=== PATIENT | male | born 1950 | race Caucasian/White ===

== ENCOUNTER → 2016-05-18 | Outpatient (CLI) | payer OTHER ==
[~2016-05-18] MED LIST: AMB10 PO; AMOX500C3 PO; ATOR-22 PO; BMX1 PO; BUME1TAB PO; CITA20TA9 PO; CMD5 PO; DRN400 PO; HYDR-5688 PO; ISOS120T5 PO; LISI2.5T5 PO; LORA-741 PO; METO1TAB69 PO; NRN/600 PO; NTRGSL/4 UT; POTA1CAP2 PO; PRD20 PO; WARF2TAB8 PO; WARF3TAB PO; ZOLP10TA6 PO
[2016-05-18 15:04] LABS: BLOOD UREA NITROGEN 27 mg/dl (7-18); BUN/CREATININE RATIO 17.1 (10-20); CALCIUM 8.8 mg/dl (8.5-10.1); CARBON DIOXIDE 25 mmol/L (21-32); CHLORIDE 105 mmol/L (98-107); GLUCOSE 97 mg/dl (70-99); POTASSIUM 4.7 mmol/L (3.5-5.1); SODIUM 140 mmol/L (136-145)
== END | disposition home or self-care (01) ==
LOC: C.LAB1850 13:25
PROVIDERS: ATTEND Internal Medicine Cardiovascular Disease
DX: I50.22 Chronic systolic (congestive) heart failure (principal); I48.0 Paroxysmal atrial fibrillation; Z79.01 Long term (current) use of anticoagulants

== ENCOUNTER → 2016-06-15 | Outpatient (CLI) | payer OTHER ==
[2016-06-15 15:28] LABS: INR 2.5 (0.9-1.1); PROTHROMBIN TIME (PATIENT) 28.1 SECONDS (9.0-12.0)
== END | disposition home or self-care (01) ==
LOC: C.LABSPEC 14:51
PROVIDERS: ATTEND Internal Medicine
DX: I48.0 Paroxysmal atrial fibrillation (principal); Z79.01 Long term (current) use of anticoagulants

== ENCOUNTER → 2016-07-15 | Outpatient (CLI) | payer OTHER ==
[2016-07-15 15:32] LABS: PROTHROMBIN TIME (PATIENT) 33.5 SECONDS (9.0-12.0)
== END | disposition home or self-care (01) ==
LOC: C.LABSPEC 14:50
PROVIDERS: ATTEND Internal Medicine
DX: I48.0 Paroxysmal atrial fibrillation (principal); Z79.01 Long term (current) use of anticoagulants

== ENCOUNTER → 2016-08-11 | Outpatient (CLI) | payer OTHER ==
[~2016-08-11] MED LIST changes: +METO100T44 PO; -METO1TAB69 PO
[2016-08-11 16:41] LABS: INR 2.3 (0.9-1.1); PROTHROMBIN TIME (PATIENT) 25.9 SECONDS (9.0-12.0)
== END | disposition home or self-care (01) ==
LOC: C.LABSPEC 17:48
PROVIDERS: ATTEND Internal Medicine
DX: Z51.81 Encounter for therapeutic drug level monitoring (principal); Z79.01 Long term (current) use of anticoagulants; I48.0 Paroxysmal atrial fibrillation

== ENCOUNTER → 2016-08-15 | Outpatient (CLI) | payer OTHER ==
--- NOTE | 2016-08-15 16:22 | DIAGNOSTIC IMAGING REPORT ---
CHEST 2 VIEWS ROUTINE CLINICAL HISTORY: DYSPNEA pain COMPARISON STUDY: 03/08/2016 FINDINGS: Permanent bipolar cardiac pacemaker/fibrillator in good position. Mild stable cardiomegaly. Mild stable chronic interstitial change. No focal infiltrates. IMPRESSION: Chronic and postoperative change. No acute process. Electronically signed by: Amilcar Tobar M.D. 08/15/2016 4:19 PM Dictated Date/Time: 08/15/2016 4:18 PM
== END | disposition home or self-care (01) ==
LOC: C.RAD 15:57
PROVIDERS: ATTEND Internal Medicine
DX: R06.00 Dyspnea, unspecified (principal); I42.9 Cardiomyopathy, unspecified

== ENCOUNTER → 2016-08-15 | Outpatient (CLI) | payer OTHER ==
[2016-08-15 17:37] LABS: BASO % 0.3 %; BASO ABS # 0.03 K/uL (0-0.2); COMPLETE YES; EOS % 0.8 %; HEMATOCRIT 38.2 % (42-52); IG% 0.1 %; LYMPH % 8.6 %; MEAN CELL VOLUME 86.8 fL (80-100); MEAN CORPUSCULAR HGB CONC 32.2 g/dl (32-36); MEAN PLATELET VOLUME 11.9 fL (7.4-10.4); MONO % 8.8 %; NEUT % 81.4 %; PLATELET COUNT 178 K/uL (130-400); WHITE BLOOD COUNT 9.32 K/uL (4.8-10.8)
[2016-08-15 17:51] LABS: BLOOD UREA NITROGEN 29 mg/dl (7-18); BUN/CREATININE RATIO 18.2 (10-20); CALCIUM 8.6 mg/dl (8.5-10.1); CARBON DIOXIDE 22 mmol/L (21-32); CHLORIDE 106 mmol/L (98-107); GLUCOSE 88 mg/dl (70-99); MAGNESIUM 2.3 mg/dl (1.8-2.4); SODIUM 137 mmol/L (136-145)
== END | disposition home or self-care (01) ==
LOC: C.LABSPEC 11:29
PROVIDERS: ATTEND Internal Medicine
DX: R06.00 Dyspnea, unspecified (principal); I25.10 Atherosclerotic heart disease of native coronary artery without angina pectoris; J06.9 Acute upper respiratory infection, unspecified; I42.9 Cardiomyopathy, unspecified

== ENCOUNTER → 2016-09-13 | Outpatient (CLI) | payer OTHER ==
[2016-09-13 12:54] LABS: INR 2.6 (0.9-1.1); PROTHROMBIN TIME (PATIENT) 28.5 SECONDS (9.0-12.0)
== END | disposition home or self-care (01) ==
LOC: C.LABSPEC 12:17
PROVIDERS: ATTEND Internal Medicine
DX: I48.0 Paroxysmal atrial fibrillation (principal); Z79.01 Long term (current) use of anticoagulants

== ENCOUNTER → 2016-10-27 | Outpatient (CLI) | payer OTHER ==
[2016-10-27 18:19] LABS: PROTHROMBIN TIME (PATIENT) 52.2 SECONDS (9.0-12.0)
[2016-10-27 18:30] LABS: INR 4.6 (0.9-1.1)
== END | disposition home or self-care (01) ==
LOC: C.LABSPEC 17:26
PROVIDERS: ATTEND Internal Medicine
DX: I48.0 Paroxysmal atrial fibrillation (principal); Z79.01 Long term (current) use of anticoagulants

== ENCOUNTER → 2016-11-04 | Outpatient (CLI) | payer OTHER ==
[~2016-11-04] MED LIST changes: -METO100T44 PO; +METO1TAB69 PO
[2016-11-04 18:25] LABS: INR 4.3 (0.9-1.1)
== END | disposition home or self-care (01) ==
LOC: C.LABSPEC 16:52
PROVIDERS: ATTEND Internal Medicine
DX: Z51.81 Encounter for therapeutic drug level monitoring (principal); Z79.01 Long term (current) use of anticoagulants; I48.0 Paroxysmal atrial fibrillation

== ENCOUNTER → 2016-11-14 | Outpatient (CLI) | payer OTHER ==
--- NOTE | 2016-11-14 14:55 | DIAGNOSTIC IMAGING REPORT ---
CHEST 2 VIEWS ROUTINE HISTORY:65 yearsMaleDYSPNEA COMPARISON: 08/15/2016. TECHNIQUE: Frontal and lateral views of the chest. FINDINGS: Left pectoral pacer/defibrillator is noted with leads appearing to be intact. Prior median sternotomy. Multichamber enlargement of the cardiac silhouette is redemonstrated. No pneumothorax, pleural effusion, focal airspace consolidation or overt pulmonary edema. Lungs are mildly hyperinflated. The bones are grossly intact. IMPRESSION: No acute cardiopulmonary process. The above report was generated using voice recognition software. It may contain grammatical, syntax or spelling errors. Electronically signed by: Ronnie Lee 11/14/2016 2:54 PM Dictated Date/Time: 11/14/2016 2:52 PM
== END | disposition home or self-care (01) ==
LOC: C.RAD1850 14:24
PROVIDERS: ATTEND Internal Medicine Cardiovascular Disease
DX: R06.00 Dyspnea, unspecified (principal)

== ENCOUNTER → 2016-11-18 | Day surgery (SDC) | payer OTHER ==
[~2016-11-18] VITALS: Ht 175.3 cm; Wt 91.0 kg
[~2016-11-18] MED LIST changes: -DRN400 PO; -WARF2TAB8 PO; -ZOLP10TA6 PO
[2016-11-18 07:16] VITALS: BP 114/73; PULSE 66; TEMP 36.9; O2SAT 96; Ht 175.3 cm; Wt 91.0 kg
--- NOTE | 2016-11-18 07:44 | History & Physical Bridge Note ---
H&P Re-Evaluation Bridge Note: I have examined the patient, reviewed the History & Physical and in the interval since the performance of the History & Physical I have noted the following changes of clinical significance: No changes noted. Reviewed indications, procedure, risks and alternatives and he understands and agrees to proceed. Consent obtained.
[2016-11-18 07:46] VITALS: BP 112/66; PULSE 68; O2SAT 96
[2016-11-18 07:48] VITALS: BP 100/59; PULSE 80; O2SAT 96
[2016-11-18 07:50] VITALS: BP 100/59; PULSE 80; O2SAT 96
--- NOTE | 2016-11-18 07:55 | Cardiology Procedure Brief Nt ---
Preliminary Cardiology Note Procedure Date Nov 18, 2016. 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
--- NOTE | 2016-11-18 07:58 | Anesthesiology Progress Note ---
Anesthesia Post Op Note Date & Time Nov 18, 2016 at 07:57 Vital Signs Pain Intensity: 0 Vital Signs Past 12 Hours Date Time Temp Pulse Resp B/P (MAP) Pulse Ox O2 Delivery O2 Flow Rate FiO2 11/18/16 07:50 80 16 100/59 96 Nasal Cannula 6 11/18/16 07:50 65 16 100/59 (73) 96 Room Air 11/18/16 07:48 80 16 100/59 96 Nasal Cannula 6 11/18/16 07:46 68 16 112/66 96 Nasal Cannula 6 11/18/16 07:16 36.9 66 16 114/73 96 Room Air Notes Mental Status: alert / awake / arousable, participated in evaluation Pt Amnestic to Procedure: Yes Nausea / Vomiting: adequately controlled Pain: adequately controlled Airway Patency, RR, SpO2: stable & adequate BP & HR: stable & adequate Hydration State: stable & adequate Anesthetic Complications: no major complications apparent
--- NOTE | 2016-11-18 09:21 | Discharge Instructions ---
Discharge Instructions Date of Service Nov 18, 2016. Admission Reason for Admission: A Fib Discharge Discharge Diagnosis / Problem: atrial fibrillation/flutter Discharge Goals Goal(s): Improve disease control Activity Recommendations Activity Limitations: resume your previous activity . Instructions / Follow-Up Instructions / Follow-Up ACTIVITY RECOMMENDATIONS: * May resume driving tomorrow. SPECIAL CARE: * Please contact physician for any lightheadedness, dizziness or palpitations. Current Hospital Diet Patient's current hospital diet: AHA Diet (Heart Healthy) Discharge Diet Recommended Diet: AHA Diet (Heart Healthy) Pending Studies Studies pending at discharge: no Medical Emergencies . Who to Call and When: Medical Emergencies: If at any time you feel your situation is an emergency, please call 911 immediately. . Non-Emergent Contact Non-Emergency issues call your: Primary Care Provider . . "Provider Documentation" section prepared by Bandar Sanders. . VTE Core Measure Inpt VTE Proph given/why not?: Warfarin (Coumadin)
[2016-11-18 09:30] VITALS: BP 104/60; PULSE 70; O2SAT 97
--- NOTE | 2016-11-18 10:26 | Cardioversion ---
Electricial Cardioversion Rpt Electrical Cardioversion Rprt Procedure Date Nov 18, 2016. Pre-Procedure Diagnosis Atrial flutter Post-Procedure Diagnosis Same Procedure(s) Performed Electrical cardioversion ICD reprogramming Energy Efficiency Finance Manager Tommy Tactical/Mobile Watch Officer(s) None Estimated Blood Loss None Procedure After obtaining informed consent for the procedure, he was connected to the recording apparatus as well as an external defibrillator system. He was anesthetized using propofol delivered by the anesthesia department. Once adequate anesthesia was obtained a synchronized internal biphasic shock of 35 J was delivered using the implanted ICD. His rhythm was converted from atrial fibrillation. External cardioversion was not necessary. He tolerated the procedure well and he awoke without sequela from the anesthesia , his ICD was evaluated post cardioversion. He will be observed briefly and discharged. Recommendations Monitor and discharge Specimens None Anesthesia Propofol via anesthesia Complication(s) None Disposition label maker recovery
== END | disposition home or self-care (01) ==
LOC: C.CATH 06:28
PROVIDERS: ATTEND Internal Medicine Cardiovascular Disease
DX: I48.91 Unspecified atrial fibrillation (principal); I48.92 Unspecified atrial flutter; I50.22 Chronic systolic (congestive) heart failure; I25.10 Atherosclerotic heart disease of native coronary artery without angina pectoris; K21.0 Gastro-esophageal reflux disease with esophagitis; I42.9 Cardiomyopathy, unspecified; E78.5 Hyperlipidemia, unspecified; G47.33 Obstructive sleep apnea (adult) (pediatric); I25.2 Old myocardial infarction

== ENCOUNTER → 2016-11-25 | Outpatient (CLI) | payer OTHER ==
[~2016-11-25] MED LIST changes: -BMX1 PO; -CMD5 PO; +DRN400 PO; -HYDR-5688 PO; -PRD20 PO; +WARF2TAB8 PO; +ZOLP10TA6 PO
[2016-11-25 13:34] LABS: INR 1.4 (0.9-1.1); PROTHROMBIN TIME (PATIENT) 15.2 SECONDS (9.0-12.0)
== END | disposition home or self-care (01) ==
LOC: C.LABSPEC 12:13
PROVIDERS: ATTEND Internal Medicine
DX: I48.0 Paroxysmal atrial fibrillation (principal); Z79.01 Long term (current) use of anticoagulants

== ENCOUNTER → 2016-12-13 | Outpatient (CLI) | payer OTHER ==
[2016-12-13 15:31] LABS: INR 2.7 (0.9-1.1); PROTHROMBIN TIME (PATIENT) 30.2 SECONDS (9.0-12.0)
== END | disposition home or self-care (01) ==
LOC: C.LABSPEC 14:59
PROVIDERS: ATTEND Internal Medicine
DX: I48.0 Paroxysmal atrial fibrillation (principal); Z79.01 Long term (current) use of anticoagulants

== ENCOUNTER → 2017-01-18 | Outpatient (CLI) | payer OTHER ==
[2017-01-18 12:45] LABS: INR 2.7 (0.9-1.1); PROTHROMBIN TIME (PATIENT) 30.4 SECONDS (9.0-12.0)
== END | disposition home or self-care (01) ==
LOC: C.LABSPEC 12:05
PROVIDERS: ATTEND Internal Medicine
DX: I48.0 Paroxysmal atrial fibrillation (principal); Z79.01 Long term (current) use of anticoagulants

== ENCOUNTER 2017-01-25 14:21 | Inpatient (IN) | payer OTHER ==
[~2017-01-25] VITALS: Ht 175.3 cm; Wt 86.3 kg
[~2017-01-25 14:21] MED LIST changes: -DRN400 PO; -WARF2TAB8 PO; -ZOLP10TA6 PO
[2017-01-25] MEDS ORDERED: SODIUM CHLORIDE 0.9% 250ML 250 ML IV STA (14:46)
[2017-01-25 14:57] LABS: BASO % 0.4 %; BASO ABS # 0.02 K/uL (0-0.2); COMPLETE YES; EOS % 3.2 %; HEMATOCRIT 42.4 % (42-52); IG% 0.2 %; LYMPH % 19.4 %; LYMPH ABS # 0.96 K/uL (1.2-3.4); MEAN CELL VOLUME 88.1 fL (80-100); MEAN CORPUSCULAR HEMOGLOBIN 28.3 pg (25-34); MEAN CORPUSCULAR HGB CONC 32.1 g/dl (32-36); MEAN PLATELET VOLUME 11.4 fL (7.4-10.4); MONO % 9.9 %; NEUT % 66.9 %; PLATELET COUNT 142 K/uL (130-400); RED BLOOD COUNT 4.81 M/uL (4.7-6.1); WHITE BLOOD COUNT 4.95 K/uL (4.8-10.8)
[2017-01-25 15:04] LABS: ISTAT HEMOGLOBIN 13.9 g/dl (14.0-18.0); ISTAT IONIZED CALCIUM 1.13 mmol/l (1.12-1.32)
--- NOTE | 2017-01-25 15:11 | DIAGNOSTIC IMAGING REPORT ---
CHEST ONE VIEW PORTABLE CLINICAL HISTORY: syncope eval pacemaker leads syncope COMPARISON STUDY: 11/14/2016 FINDINGS: Cardiac pacemaker/defibrillator with leads unchanged in position. No evidence pneumothorax. Moderate stable cardiomegaly. Lungs are clear. IMPRESSION: Stable bipolar cardiac pacemaker/defibrillator leads. Moderate stable cardia megaly. No acute process. The above report was generated using voice recognition software. It may contain grammatical, syntax or spelling errors. Electronically signed by: Amilcar Tobar M.D. 01/25/2017 3:09 PM Dictated Date/Time: 01/25/2017 3:09 PM
[2017-01-25 15:15] LABS: BUN/CREATININE RATIO 21.5 (10-20); CALCIUM 9.4 mg/dl (8.5-10.1); CREATININE 1.9 mg/dl (0.60-1.40); MAGNESIUM 2.3 mg/dl (1.8-2.4); POTASSIUM 4.2 mmol/L (3.5-5.1)
[2017-01-25 15:21] LABS: INR 3.3 (0.9-1.1); PARTIAL THROMBOPLASTIN RATIO 1.7; PROTHROMBIN TIME (PATIENT) 37.6 SECONDS (9.0-12.0)
[2017-01-25] MEDS ORDERED: WARF2TAB8 PO (15:22)
[2017-01-25] MEDS ORDERED: ZOLP10TA6 PO (15:23)
[2017-01-25] MEDS ORDERED: DRN400 PO (15:26)
--- NOTE | 2017-01-25 15:47 | DIAGNOSTIC IMAGING REPORT ---
HEAD WITHOUT CONTRAST (CT) CT DOSE: 1043.97 mGy.cm HISTORY: Mental status change eval for bleed TECHNIQUE: Multiaxial CT images of the head were performed without the use of intravenous contrast. A dose lowering technique was utilized adhering to the principles of ALARA. Comparison: 11/01/2013 Findings: The paranasal sinuses and mastoid air cells are clear. The calvarium and skull base are intact. The ventricles and sulci are within normal limits. There is no mass, hematoma, midline shift, or acute infarct. Impression: No acute intracranial abnormality. The above report was generated using voice recognition software. It may contain grammatical, syntax or spelling errors. Electronically signed by: Amilcar Tobar M.D. 01/25/2017 3:46 PM Dictated Date/Time: 01/25/2017 3:45 PM
--- NOTE | 2017-01-25 15:54 | DIAGNOSTIC IMAGING REPORT ---
CT OF THE CERVICAL SPINE WITHOUT CONTRAST CLINICAL HISTORY: Syncope with fall. COMPARISON STUDY: CTA of the neck November 01, 2013. TECHNIQUE: Helical axial images of the cervical spine were obtained without IV contrast. Sagittal and coronal reconstructions were viewed. A dose lowering technique was utilized adhering to the principles of ALARA. FINDINGS: Alignment of the cervical spine is anatomic. The craniocervical junction is intact. There is no acute cervical spine fracture. Moderate multilevel degenerative disc disease and facet arthrosis is present. Mild interlobular septal thickening is noted within visual portions of the lungs. IMPRESSION: No acute cervical spine fracture or subluxation. Electronically signed by: Guillermo Braden M.D. 01/25/2017 3:52 PM Dictated Date/Time: 01/25/2017 3:48 PM
[2017-01-25] MEDS ORDERED: FENTANYL CITRATE INJ 50 MCG/1 ML 2 ML VIAL IV STA (17:00)
[2017-01-25] MEDS ORDERED: NITROGLYCERIN 0.4 MG SL PER TAB CHARGE SL PRN (17:30)
[2017-01-25 17:50] VITALS: O2SAT 93; Ht 175.3 cm; Wt 86.3 kg
--- NOTE | 2017-01-25 18:01 | EMERGENCY ROOM VISIT NOTE ---
History Report prepared by Abdullahi: Najma West Under the Supervision of: Dr. Jonel Malone M.D. 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 Pt states he hit his head, right elbow, right knee. Pt states he has a defib and "he thinks it went off." Reports epigastric pain. History of Present Illness The patient is a 66 year old male who presents to the Emergency Room with complaints of a syncopal episode occurring an hour ago. The patient was sitting in his chair when he got up and felt lightheaded. He notes that he passed out and woke up about five minutes after the episode. When getting up after the episode, the patient notes he felt weak all over. He states he still feels weak from the episode. The patient has epigastric pain which he has never had before. He states he hit his head on the refrigerator and has neck pain. He notes hitting his right knee and elbow from the fall but denies having any significant pain in those areas. He denies having any heart racing or chest pain during the episode. The patient is unsure if his defibrillator went off during the episode. He denies feeling it go off. The only symptoms he had prior to passing out was lightheadedness. The patient is on Coumadin and had a cardioversion and reprogramming of ICD on December 19 for atrial flutter. Source of History: patient Onset: an hour ago Position: other (generalized) Quality: other (syncope) Timing: other (episode) Associated Symptoms: + LOC, + abdominal pain (epigastric), + weakness ( generalized), No fevers, No chest pain, No SOB Review of Systems See HPI for pertinent positives & negatives. A total of 10 systems reviewed and were otherwise negative. Past Medical & Surgical Medical Problems: (1) AC MYOCARD INFARCT INFRPSTERIOR WALL,INIT EPIS CAR (2) ANTICOAGULANTS,LT,CURRENT USE (3) ANXIETY STATE NOS (4) AORTOCORONARY BYPASS (5) ARTERIAL EMBOLISM NOS (6) Atherosclerotic heart disease (7) ATRIAL FIBRILLATION (8) BELOW KNEE AMPUTATION STATUS (9) CARDIAC PACEMAKER IN SITU (10) CHF,CARDIOMYOPATHY EF 12-20% (11) CORONARY ATHEROSCLEROSIS OF [place] CORONARY VESSEL (12) Parox Ventric Tachycard (13) Recurrent ventricular tachycardia (14) SYNCOPE, V.TACH.,V FIB.,CAD (15) SYNCOPE,CAD,?CHOLECYSTITIS, Family History Heart disease Social History Smoking Status: Never Smoker Alcohol Use: none Marital Status: Housing Status: lives with family Occupation Status: employed Current/Historical Medications Scheduled Amoxicillin (Amoxil), 2,000 MG PO PRN/UD Atorvastatin (Lipitor), 20 MG PO DAILY Citalopram Hydrobromide (Celexa), 20 MG PO DAILY Dronedarone (Multaq), 400 MG PO BID Gabapentin (Neurontin), 600 MG PO BIDM Isosorbide Mononitrate (Imdur Ext Rel), 120 MG PO QAM Lisinopril (Lisinopril), 2.5 MG PO DAILY Metoprolol Succ (Toprol Xl) (Toprol-Xl ), 150 MG PO DAILY Nitroglycerin (Nitrostat), 0.4 MG UT PRN Potassium Chloride (Potassium Chloride Er), 20 MEQ PO DAILY Warfarin Sod (Jantoven), 2 MG PO DAILY Scheduled PRN Bumetanide (Bumex), 1 TAB PO DAILY PRN for PRN Lorazepam (Ativan), 1-2 TABS PO Q6H PRN for Anxiety Zolpidem Tartrate (Zolpidem Tartrate), 1 TAB PO HS PRN for Sleep Allergies Coded Allergies: Heparin (Verified Allergy, Severe, CAUSES HIT, 01/25/17) Silver (Verified Adverse Reaction, Unknown, TOPICAL - BURNING, PAIN, ) TOPICAL USE Physical Exam Vital Signs Date Time Temp Pulse Resp B/P (MAP) Pulse Ox O2 Delivery O2 Flow Rate FiO2 01/25/17 16:59 74 16 114/80 93 Room Air 01/25/17 16:39 61 15 96/60 93 Room Air 01/25/17 14:43 74 01/25/17 14:29 37.7 64 20 107/63 94 Room Air Physical Exam Constitutional: Vital signs reviewed. Eyes: Pupils are equal round reactive to light. Conjunctiva are noninjected. ENT: Pharynx is clear without erythema or exudate. Mucous membranes are moist. Neck supple without meningeal signs. No midline tenderness to cervical spine. Respiratory: Clear to auscultation bilaterally. Breath sounds are equal bilaterally. Cardiovascular: Regular rate and rhythm. No rubs or gallops. GI: Soft, nondistended and nontender. Bowel sounds are present. Musculoskeletal: Erythema to right anterior knee without tenderness. Full ROM intact. No tenderness to hips or right elbow. Left BKA. Integumentary: No cyanosis. Neurological: The patient is awake and alert. Cranial nerves II-XII are intact. Motor is 5 out of 5 all extremities. Sensation is intact to light touch all extremities. Normal speech. No pronator drift. Psychiatric: Normal affect. Medical Decision & Procedures ER Provider Diagnostic Interpretation: Radiology results as stated below per my review and the radiologist's interpretation: CHEST ONE VIEW PORTABLE FINDINGS: Cardiac pacemaker/defibrillator with leads unchanged in position. No evidence pneumothorax. Moderate stable cardiomegaly. Lungs are clear. IMPRESSION: Stable bipolar cardiac pacemaker/defibrillator leads. Moderate stable cardia megaly. No acute process. The above report was generated using voice recognition software. It may contain grammatical, syntax or spelling errors. Electronically signed by: Amilcar Tobar M.D HEAD WITHOUT CONTRAST (CT) Findings: The paranasal sinuses and mastoid air cells are clear. The calvarium and skull base are intact. The ventricles and sulci are within normal limits. There is no mass, hematoma, midline shift, or acute infarct. Impression: No acute intracranial abnormality. The above report was generated using voice recognition software. It may contain grammatical, syntax or spelling errors. Electronically signed by: Amilcar Tobar M.D. CT OF THE CERVICAL SPINE WITHOUT CONTRAST TECHNIQUE: Helical axial images of the cervical spine were obtained without IV contrast. Sagittal and coronal reconstructions were viewed. A dose lowering technique was utilized adhering to the principles of ALARA. FINDINGS: Alignment of the cervical spine is anatomic. The craniocervical junction is intact. There is no acute cervical spine fracture. Moderate multilevel degenerative disc disease and facet arthrosis is present. Mild interlobular septal thickening is noted within visual portions of the lungs. IMPRESSION: No acute cervical spine fracture or subluxation. Electronically signed by: Guillermo Braden M.D. Laboratory Results 01/25/17 14:40 Red Blood Count 4.81, Mean Corpuscular Volume 88.1, Mean Corpuscular Hemoglobin 28.3, Mean Corpuscular Hemoglobin Concent 32.1, Mean Platelet Volume 11.4, Neutrophils (%) (Auto) 66.9, Lymphocytes (%) (Auto) 19.4, Monocytes (%) (Auto) 9.9, Eosinophils (%) (Auto) 3.2, Basophils (%) (Auto) 0.4, Neutrophils # (Auto) 3.31, Lymphocytes # (Auto) 0.96, Monocytes # (Auto) 0.49, Eosinophils # (Auto) 0.16, Basophils # (Auto) 0.02 01/25/17 14:40 Test 01/25/17 14:40 01/25/17 14:55 01/25/17 14:56 01/25/17 17:16 White Blood Count 4.95 K/uL (4.8-10.8) Red Blood Count 4.81 M/uL (4.7-6.1) Hemoglobin 13.6 g/dL (14.0-18.0) Hematocrit 42.4 % (42-52) Mean Corpuscular Volume 88.1 fL (80-100) Mean Corpuscular Hemoglobin 28.3 pg (25-34) Mean Corpuscular Hemoglobin Concent 32.1 g/dl (32-36) Platelet Count 142 K/uL (130-400) Mean Platelet Volume 11.4 fL (7.4-10.4) Neutrophils (%) (Auto) 66.9 % Lymphocytes (%) (Auto) 19.4 % Monocytes (%) (Auto) 9.9 % Eosinophils (%) (Auto) 3.2 % Basophils (%) (Auto) 0.4 % Neutrophils # (Auto) 3.31 K/uL (1.4-6.5) Lymphocytes # (Auto) 0.96 K/uL (1.2-3.4) Monocytes # (Auto) 0.49 K/uL (0.11-0.59) Eosinophils # (Auto) 0.16 K/uL (0-0.5) Basophils # (Auto) 0.02 K/uL (0-0.2) RDW Standard Deviation 47.4 fL (36.4-46.3) RDW Coefficient of Variation 14.7 % (11.5-14.5) Immature Granulocyte % (Auto) 0.2 % Immature Granulocyte # (Auto) 0.01 K/uL (0.00-0.02) Prothrombin Time 37.6 SECONDS (9.0-12.0) Prothromb Time International Ratio 3.3 (0.9-1.1) Activated Partial Thromboplast Time 45.1 SECONDS (21.0-31.0) Partial Thromboplastin Ratio 1.7 Est Creatinine Clear Calc Drug Dose 41.5 ml/min Estimated GFR () 41.1 Estimated GFR (Non- 35.4 BUN/Creatinine Ratio 21.5 (10-20) Calcium Level 9.4 mg/dl (8.5-10.1) Magnesium Level 2.3 mg/dl (1.8-2.4) Total Bilirubin 1.3 mg/dl (0.2-1) Direct Bilirubin 0.3 mg/dl (0-0.2) Aspartate Amino Transf (AST/SGOT) 27 U/L (15-37) Alanine Aminotransferase (ALT/SGPT) 34 U/L (12-78) Alkaline Phosphatase 146 U/L (45-117) Total Protein 7.8 gm/dl (6.4-8.2) Albumin 3.7 gm/dl (3.4-5.0) Bedside Hemoglobin 13.9 g/dl (14.0-18.0) Bedside Hematocrit 41 % (42-52) Bedside Sodium 140 mEq/L (135-144) Bedside Potassium 4.8 mEq/L (3.3-5.0) Bedside Chloride 107 mEq/L (101-112) Bedside Total CO2 26 mEq/l (24-31) Anion Gap 12.0 mmol/L (16-25) Bedside Blood Urea Nitrogen 53 mg/dl (7-18) Bedside Creatinine 2.0 mg/dl (0.6-1.3) Bedside Glucose (other) 105 mg/dl (70-99) Bedside Ionized Calcium (Kierra) 1.13 mmol/l (1.12-1.32) Bedside Troponin I < 0.030 ng/ml (0-0.045) Laboratory results as reviewed by me. Medications Administered Medications (Trade) Dose Ordered Sig/Maya Route Start Time Stop Time Status Last Admin Dose Admin Sodium Chloride 250 ml @ 999 mls/hr Q16M STAT IV 01/25/17 14:46 01/25/17 15:01 DC 01/25/17 15:23 999 MLS/HR Fentanyl Citrate (Fentanyl Inj) 25 mcg NOW STAT IV 01/25/17 17:00 01/25/17 17:01 DC 01/25/17 17:18 25 MCG ECG Indication: syncope Rate (beats per minute): 78 Rhythm: other (Atrial paced rhythm) Findings: prolonged QT, other (QRS 104 ms) Comparison ECG Date: Reppeat EKG Change: Repeat EKG shows: normal sinus at rate of 79 bpm with a low voltage QRS. No change from the EKG at 1428. ED Course 1439: The patient was evaluated in room C1B. A complete history and physical exam was performed. 1446: Sodium Chloride 250 ml @ 999 mls/hr IV. 1532: I checked on the patient and they are working on trying to interrogate the pacemaker. 1600: They are currently interrogating pacemaker discussed test results with him 1620: I talked to the [employer] special equipment technician. The patient has been episodes of V- tac which is normal for him. He was 118-130 today and had V-tac and pacer accelerated him into ventricular fibrillation and shocked him. 1625: I discussed the patient's case with Dr. Sanders[facility] Cardiology. He advised to stop to Multaq and bring the patient into the hospital. 1633: I spoke with Dr. Angelica Angulo. We discussed the patient and his results. The patient will be further evaluated by him. 1657: The patient has developed burning in his epigastrium, chest and right arm. His systolic blood pressure is 114. 1700: Fentanyl Inj 25 mcg IV. 1743: The patient is no longer having any chest discomfort. Dr. Angelica Angulo has come in and seen the patient. 1750: The patient will be evaluated for further management. Medical Decision This is a 66-year-old male who presents with a syncopal episode. Differential diagnosis includes orthostatic hypotension, dehydration, dysrhythmia, intracranial hemorrhage, metabolic derangement. I did perform a limited focused review of portions of the patient's old chart on the electronic medical record. The patient had a cardioversion and reprogramming of ICD on December 19 for atrial flutter. I did evaluate the patient as noted above. The patient presents with a single episode today. He currently has some epigastric discomfort which is mild. He did feel lightheaded before he passed out. He does have an AICD. IV access was established. The patient was placed on a continuous monitor worker. I did order and personally review the patient's 12-lead EKG and chest x-ray as described above. I did order and review the patient's blood work as noted in the electronic medical record. His troponin is negative. His INR is slightly elevated at 3.3. I did order a CT of the head and cervical spine. I did review the images myself as well as the radiology report as described above. There is no evidence of fracture or intracranial hemorrhage. I did have the pacemaker interrogated. I did discuss this with the special equipment technician who states that he has been having increased episodes of ventricular tachycardia for the past several days. He had an episode today which accelerated into V. fib. He was then shocked by his AICD. I did discuss this with his manager merchandising who recommended stopping his Multaq and admitting him to the hospital. I did discuss this with his primary care physician who admitted the patient. While in the emergency pertinent the patient developed some epigastric pain radiating into his chest and arm. I did repeat his 12-lead EKG which did not show any acute changes. I did treat him with 25 g of fentanyl IV. On reassessment his chest pain is relieved. Head Trauma GCS Score: 15 Medication Reconcilliation Current Medication List: was personally reviewed by me Blood Pressure Screening Patient's blood pressure: Normal blood pressure Consults Time Called: 1620 Consulting Physician: Dr. [facility] Returned Call: 1625 I discussed the patient's case with Dr. Win Cardiology. He advised to stop to Multaq and bring the patient into the hospital. Additional Consults: Time Called: 1632 Consulted Physician: Dr. Angelica Angulo Returned Call: 1633 Additional Comments: I spoke with Dr. Angelica Angulo. We discussed the patient and his results. The patient will be further evaluated by him. Impression Primary Impression: Ventricular fibrillation Additional Impressions: Ventricular tachycardia Syncope Chronic kidney disease Anticoagulated on Coumadin Acute head injury Acute chest pain Scribe Attestation The scribe's documentation has been prepared under my direct and personally reviewed by me in its entirety. I confirm that the note above accurately reflects all work, treatment, procedures, and medical decision making performed by me. Departure Information Dispostion Being Evaluated By Hospitalist Referrals Will Craig M.D. (PCP) Patient Instructions [facility] Problem Qualifiers Additional Impressions: Syncope Syncope type: unspecified Qualified Codes: R55 - Syncope and collapse Chronic kidney disease Chronic kidney disease stage: unspecified stage Qualified Codes: N18.9 - Chronic kidney disease, unspecified Acute head injury Encounter type: initial encounter Qualified Codes: S09.90XA - Unspecified injury of head, initial encounter
[2017-01-25 18:53] VITALS: BP 96/60; PULSE 60; TEMP 36.6; O2SAT 92
[2017-01-25] MEDS ORDERED: INFLUENZA VACCINE HIGH DOSE 65+ 0.5 ML SYR IM. ONE (19:00)
[2017-01-25] MEDS ORDERED: INFLUENZA ADMINISTRATION CHARGE ONE (19:00)
[2017-01-25 20:00] VITALS: O2SAT 92
[2017-01-25] MEDS: GABAPENTIN 600 MG TAB PO SCH (20:37)
--- NOTE | 2017-01-25 21:02 | History and Physical ---
History & Physical Date of Service Jan 25, 2017. History & Physical ADMISSION DATE: 01/25/2017 CHIEF COMPLAINT: 66-year-old male admitted through the emergency room after a syncopal episode. His pacemaker interrogation revealed evidence of recurrent ventricular tachycardia and also ventricular fibrillation. PRESENT ILLNESS: patient with extensive medical history including coronary artery disease, severe ischemic cardiomyopathy with an ejection fraction previously noted to be between 15 and 20%, recurrent ventricular tachycardia, has a pacer defibrillator in place, chronic congestive heart failure, paroxysmal atrial fibrillation, atrial flutter, chronic intact coagulation with Coumadin, history of amiodarone toxicity, sleep apnea. Today patient was sitting out on his porch reading the newspaper. On 2 occasions he noted that the paper fell out of his right hand. Currently he stood up. He did not feel well. He felt with the floor. He woke up. There was definitely a period of loss of consciousness. He stood up and was able to walk. He called his . He did sustain an injury when he fell down. He hit the back of his neck. Also his right elbow and right knee. He was brought to the emergency room. He was evaluated by Dr. Malone. His pacemaker was interrogated. There was documentation of recurrent ventricular tachycardia but she also had an episode of ventricular fibrillation. His ICD did discharge. Dr. Malone did speak with Dr. Bandar Sanders, his inspector government property. He recommended discontinuation of Multaq and admission. Patient was resting comfortably in the emergency room. He did have an episode described as epigastric burning. He was given pain medication and the episode subsided. He was admitted to the progressive care unit PAST MEDICAL HISTORY: * coronary artery disease. He had an acute myocardial infarction in 2009. He was transferred to [facility]. He had 4 vessel coronary artery bypass graft with CLEARY to LAD and saphenous vein graft to OM one and OM 2 and the PDA. * Postoperatively he presented with an acute thromboembolic event after the intra-aortic balloon was removed. He developed ischemia of his left foot. Subsequently he developed gangrene. He had multiple interventions with amputation. 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 * Ventricular arrhythmias including recurrent ventricular tachycardia at time sustained and ventricular fibrillation. He has a treatment with multiple agents. At one time in the past she was scheduled to go to [place] for possible ablation. The night before he was to be evaluated he had chest pain and he was admitted. He had a cardiac catheterization done. His CLEARY to LAD graft was patent. The rest of the grafts were all occluded. * He was then referred to the [facility]. He did undergo an ablation procedure. * Dual-chamber ICD pacer placed by Dr. Sanders on 01/08/2014. On 11/18/2016 he underwent electrical cardioversion because of atrial flutter and also ICD reprogramming. * Ischemic cardiomyopathy. Ejection fraction between 15 and 20% * Recurrent atrial fibrillation. Chronic pain tach regulated with Coumadin * Obstructive sleep apnea. On CPAP * Amiodarone toxicity manifested by multiple findings including respiratory failure, pulmonary changes, elevated liver enzyme, markedly elevated prothrombin time. His amiodarone was discontinued. He was treated with prednisone. The dose was eventually tapered down gradually. After treatment he no longer needed any oxygen. His liver enzymes normalize. * known cholelithiasis. Asymptomatic. SOCIAL HISTORY: he is . Has one daughter. He smoked for over 40 years up to one pack per day and he stopped in 2009. No alcohol. He is retired. He worked with a [employer]. 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 His mother in her 80s. He had 2 brothers and 2 sisters. One sister had ovarian cancer at age 43. ALLERGIES: heparin is listed as allergy. When he had a thromboembolic event after his cardiac surgery it was thought that heparin could be playing a role. The event was thromboembolic which occurred after removal of the intra-aortic balloon. CURRENT MEDICATIONS: all as noted on his home medication list REVIEW OF SYSTEMS: he denied any head 80. No lightheadedness. No dizziness at this point. No earache sore throat or neck pain. He denies any chest pain pressure or tightness. No shortness of breath. He is resting comfortably. No abdominal pain no nausea no vomiting. No problem with his bowel movements. No problem urinating. He is having some pain in the back of his neck and right palm and right knee he related to the fall. PHYSICAL EXAMINATION: GENERAL : Well developed. Well nourished. No acute distress.his recorded weight is 91 kg, height 175.3 cm, BMI 29.6. VITAL SIGNS : Blood Pressure : 107/63, pulse 64, respiration 20, temperature 37.7, oxygen saturation 94% on room air SKIN : Warm and dry. No rash.Superficial abrasions right arm and right knee HEENT :No mucosal abnormalities NECK : Supple. No adenopathy. No thyromegaly. No JVD. Normal carotid pulses. No carotid bruit. CHEST : Normal. Surgical scar. ICD in place. HEART: HEART: Regular heart tones with 2/6 systolic murmur. No rub no gallop. LUNGS: Clear. Normal breath sounds. ABDOMEN: Soft nontender. No organomegaly or masses. Good bowel sounds. BACK: No spine or CVA tenderness. EXTREMITIES: He is status post left BKA. No edema clubbing or cyanosis. Good posterior tibialis pulse on the right side NEUROLOGICAL EXAMINATION: alert and oriented. No evidence of any deficit. LABORATORY TEST; WBC count 4950, hemoglobin 13.6, hematocrit 42.4, platelet count 142,000. Sodium 141, potassium 4.2, chloride 107, CO2 25, BUN 41, creatinine 1.9, glucose 109, calcium 9.4, magnesium 2.3, total bilirubin 1.3, AST 27, ALT 34, alkaline phosphatase 146, total protein 7.8, albumin 3.7, troponin I less than 0.030, TSH 0.967, T4-9 0.6. Prothrombin time 37.6, INR 3.3, PTT 45.1. CT scan of the head and the cervical spine showed no significant abnormalities. Chest x-ray did not show any acute process. Electrocardiogram showed atrial paced rhythm. Prolonged QT. No significant change compared to prior electrocardiograms. ASSESSMENT: * syncope * Ventricular tachycardia * Ventricular fibrillation * Coronary artery disease. Status post four-vessel coronary artery bypass graft. CLEARY to LAD the only patent graft. * ischemic cardiomyopathy * Paroxysmal atrial fibrillation * Atrial flutter status post cardioversion * ICD. Dual-chamber * Sleep apnea * Cholelithiasis * Depression * Left below the knee amputation PLAN: patient was admitted to PCU with telemetry. The resuscitation effort one. All his laboratory tests were ordered. An echocardiogram was ordered. Cardiac isoenzymes and serial electrocardiograms were ordered. His Multaq was discontinued as recommended. Will monitor for any reoccurrence of any ventricular arrhythmias. I spoke with Dr. Sanders. Consider using lidocaine if he presents with recurrent ventricular anemia. It is not really sure at this point what would be the next step considering the multitude of medications that had been prescribed for his ventricular arrhythmias. Will decide on referral back to the [facility] for consideration of another ablation procedure.
[2017-01-25] MEDS: ZOLPIDEM TARTRATE 5 MG TAB PO PRN (22:13)
[2017-01-25 23:23] VITALS: BP 95/62; PULSE 73; TEMP 36.7; O2SAT 92
[2017-01-26] VITALS (7 sets, daily range): BP systolic 96–152; BP diastolic 56–75; PULSE 58–77; TEMP 36.4–36.8; O2SAT 93–97
[2017-01-26 01:00] LABS: CKMB/CK RATIO 1.2 (0-3.0)
[2017-01-26 06:31] LABS: BASO % 0.4 %; BASO ABS # 0.02 K/uL (0-0.2); COMPLETE YES; EOS % 2.9 %; HEMATOCRIT 40.9 % (42-52); IG% 0.4 %; LYMPH % 25.4 %; LYMPH ABS # 1.31 K/uL (1.2-3.4); MEAN CELL VOLUME 88.1 fL (80-100); MEAN CORPUSCULAR HEMOGLOBIN 27.6 pg (25-34); MEAN CORPUSCULAR HGB CONC 31.3 g/dl (32-36); MEAN PLATELET VOLUME 11.2 fL (7.4-10.4); MONO % 8.1 %; NEUT % 62.8 %; PLATELET COUNT 131 K/uL (130-400); RED BLOOD COUNT 4.64 M/uL (4.7-6.1); WHITE BLOOD COUNT 5.16 K/uL (4.8-10.8)
[2017-01-26 07:18] LABS: BLOOD UREA NITROGEN 40 mg/dl (7-18); BUN/CREATININE RATIO 23.3 (10-20); CARBON DIOXIDE 28 mmol/L (21-32); CHLORIDE 108 mmol/L (98-107); GLUCOSE 84 mg/dl (70-99); MAGNESIUM 2.4 mg/dl (1.8-2.4); POTASSIUM 4.5 mmol/L (3.5-5.1); SODIUM 141 mmol/L (136-145)
[2017-01-26] MEDS ORDERED: PERFLUTREN LIPID MICROSPHERE (DEFINITY) IV ONE (07:40)
[2017-01-26] MEDS: GABAPENTIN 600 MG TAB PO SCH ×2 (08:37→17:05)
[2017-01-26] MEDS: CITALOPRAM 20 MG TAB PO SCH (08:38)
[2017-01-26] MEDS: ATORVASTATIN 20 MG TAB PO SCH (08:39)
[2017-01-26] MEDS: METOPROLOL SUCC 50MG EXT REL TAB PO SCH (08:39)
[2017-01-26] MEDS: LISINOPRIL 2.5 MG TAB PO SCH (08:40)
--- NOTE | 2017-01-26 08:53 | Clinical Documentation Query ---
Dr. DENNISE MORALES [facility] : CLINICAL DOCUMENTATION QUERIES QUERY 1 OF 4 Patient is a 66 year old male admitted for syncope in the setting of VT/VF with AICD defibrillation. ED notes include "The patient has been episodes of V-tac which is normal for him. He was 118-130 today and had V-tac and pacer accelerated him into ventricular fibrillation and shocked him". This implies the ICD was responsible for the VF and correction thereof, the former of which represents a complication related to the device. Please clarify as clinically appropriate. Thank you. In your clinical opinion is this patient being managed for: ( ) AICD induced ventricular fibrillation, a complication of the device ( ) Not Agree (x ) Other explanation of clinical findings (Please Explain)his arrhythmias are due to his severe CAD, ischemic cardiomyopathy ( ) Unable to determine (Please Define) ( ) Need to Discuss The medical record reflects the following clinical findings, treatment, and risk factors. Clinical Indicators: As above Treatment: PCU with telemetry, echocardiogram, serial cardiac enzymes, cardiology consultation Risk Factors: Ischemic cardiomyopathy with ICD implantation QUERY 2 OF 4 Documentation includes ischemic cardiomyopathy. Documented EF between 15-20%. Treatment has included Bumex, Multaq, Imdur, Lisinopril, and Toprol XL, telemetry, I/O, daily weights. In your clinical opinion is this patient being managed for: (x ) Chronic systolic CHF ( ) Not Agree ( ) Other explanation of clinical findings (Please Explain) ( ) Unable to determine (Please Define) ( ) Need to Discuss The medical record reflects the following clinical findings, treatment, and risk factors. Clinical Indicators: As above Treatment:Treatment has included Bumex, Multaq, Imdur, Lisinopril, and Toprol XL, telemetry, I/O, daily weights Risk Factors: CAD, AF, ischemic cardiomyopathy QUERY 3 OF 4 Admission BUN, creatinine, and estimated GFR were 41 mg/dl, 1.90 mg/dl, and 35 ml/min. Historical GFR range from 08/21 to present of 32-69 ml/min. He is being monitored with serial chemistries. Please clarify as clinically appropriate. Thank you. In your clinical opinion is this patient being managed for: ( x ) Chronic kidney disease, stage 3 ( ) Not Agree ( ) Other explanation of clinical findings (Please Explain) ( ) Unable to determine (Please Define) ( ) Need to Discuss The medical record reflects the following clinical findings, treatment, and risk factors. Clinical Indicators: As above Treatment:He is being monitored with serial chemistries Risk Factors: Age, AMI, AF, CAD, ischemic cardiomyopathy QUERY 4 OF 4 As patient experienced VF requiring defibrillation by AICD, consider documentation as suggested below in order to capture the severity of illness and associated risk of mortality associated with VF requiring defibrillation. In your clinical opinion is this patient being managed for: ( x ) Ventricular asystole secondary to VF ( ) Not Agree ( ) Other explanation of clinical findings (Please Explain) ( ) Unable to determine (Please Define) ( ) Need to Discuss The medical record reflects the following clinical findings, treatment, and risk factors. Clinical Indicators: As above Treatment: PCU with telemetry, ICD defibrillation, cardiology consultation Risk Factors: Ischemic CM Please clarify and document your clinical opinion in the progress notes and discharge summary. Terms such as "probable", "suspected", "likely", "questionable", "possible", or "still to be ruled out" are acceptable. IF IN AGREEMENT, YOU MUST DOCUMENT ABOVE DIAGNOSTIC STATEMENT IN DAILY PROGRESS NOTES AND DISCHARGE SUMMARY. This document is not part of the patient's record. Thank You, Josue Ayala, RN [phone]
[2017-01-26] MEDS: ISOSORBIDE MONONITRATE 60 MG TABCR PO SCH (12:29)
--- NOTE | 2017-01-26 13:28 | ECHOCARDIOGRAM REPORT ---
*NOTICE TO RECEIVING DEMOCRAT AGENCY This information is strictly Confidential and protected under [place] law. [place] law prohibits you from making any further disclosure of this information unless further disclosure is expressly permitted by the written consent of the person to whom it pertains or is authorized by law. A general authorization for the release of medical or other information is not sufficient for this purpose. Hospital accepts no responsibility if the information is made available to any other person, INCLUDING THE PATIENT. Interpretation Summary * Name: NICK GARSIA Study Date: 01/26/2017 07:03 AM BP: 98/56 mmHg * Patient Location: .2T\S\E219\S\1 HR: 76 * : 1950 (M/d/yyyy) Gender: Male Height: 69 in * Age: 66 yrs Ethnicity: CA Weight: 200 lb * Ordering Physician: Will Craig * Referring Physician: Will Craig * Performed By: Katty Casper RCS * * Reason For Study: V-Fib * BSA: 2.1 m2 * -- Conclusions -- * 1. Severely dilated left ventricle. * 2. Severe global LV dysfunction. LVEF 15-20%. Inferior and septal wall akinesis. Grade II diastolic dysfunction. * 3. Mild RV dilation and moderate dysfunction. * 4. Mild mitral regurgitation. * 5. Mild tricuspid regurgitation. * 6. Mild to moderate pulmonary hypertension. Est PASP 45-50 mmHg. * 7. Compared with prior study on 12/10/2015: No significant changes. Procedure Details * A contrast injection of Definity was performed to improve assessment of LV function. * Contrast was injected into an intravenous site in the left arm. * One vial of Definity ultrasound contrast was diluted in normal saline to a total volume of 10 ml. A total of '4' ml of solution was administered during imaging. * Lot # [id number] of Definity utilized for procedure. * Expiration date . * The attending nurse who injected the contrast agent was MARIA DEL CARMEN DICKSON. Left Ventricle * The left ventricle is severely dilated. * There is borderline concentric left ventricular hypertrophy. * Ejection Fraction = 15-20%. * There is severe global hypokinesis of the left ventricle. * There is inferior wall akinesis. * There is septal akinesis. Right Ventricle * There is a pacemaker lead in the right ventricle. * The right ventricle is mildly dilated. * The right ventricular systolic function is moderately reduced. Atria * The left atrium is severely dilated. * The right atrium is severely dilated. * No ASD detected; PFO is not assessed. Mitral Valve * The mitral valve is grossly normal. * There is no mitral valve stenosis. * There is mild mitral regurgitation. Tricuspid Valve * The tricuspid valve is not well visualized, but is grossly normal. * There is no tricuspid stenosis. * There is mild tricuspid regurgitation. * Right ventricular systolic pressure is elevated at 40-50mmHg. Aortic Valve * The aortic valve opens well. * The aortic valve is trileaflet. * No hemodynamically significant valvular aortic stenosis. * There is no significant aortic regurgitation. Pulmonic Valve * The pulmonary valve is inadequately visualized, but the Doppler data is adequate for interpretation. * Pulmonic stenosis is absent. * There is no significant pulmonary regurgitation. Great Vessels * The aortic root and proximal ascending aorta are normal sized. Pericardium/Pleural * There is no pericardial effusion. Great Vessels * IVC< 2.1, <50% change with respiration Left Ventricular Diastolic Function * Diastolic dysfunction, Grade II, consistent with elevated left atrial pressure. MMode 2D Measurements and Calculations IVSd 1.3 cm LVIDd 6.0 cm LVIDs 5.2 cm LVPWd 1.4 cm IVS/LVPW 0.99 FS 12.4 % EDV(Teich) 177.5 ml ESV(Teich) 131.0 ml EF(Teich) 26.2 % EDV(cubed) 212.1 ml ESV(cubed) 142.7 ml EF(cubed) 32.7 % LV mass(C)d 368.5 grams LV mass(C)dI 178.4 grams/m\S\2 SV(Teich) 46.6 ml SI(Teich) 22.5 ml/m\S\2 SV(cubed) 69.5 ml SI(cubed) 33.6 ml/m\S\2 Ao root diam 3.3 cm Ao root area 8.6 cm\S\2 LVOT diam 2.1 cm LVOT area 3.3 cm\S\2 LVOT area(traced) 3.5 cm\S\2 LVAd ap4 62.7 cm\S\2 LVLd ap4 11.1 cm EDV(MOD-sp4) 287.5 ml EDV(sp4-el) 301.1 ml LVAs ap4 57.5 cm\S\2 LVLs ap4 10.4 cm ESV(MOD-sp4) 262.5 ml ESV(sp4-el) 269.8 ml EF(MOD-sp4) 8.7 % EF(sp4-el) 10.4 % LVAd ap2 55.0 cm\S\2 LVLd ap2 10.3 cm EDV(MOD-sp2) 249.5 ml EDV(sp2-el) 250.3 ml LVAs ap2 48.8 cm\S\2 LVLs ap2 9.8 cm ESV(MOD-sp2) 203.4 ml ESV(sp2-el) 207.0 ml EF(MOD-sp2) 18.5 % EF(sp2-el) 17.3 % LVLd %diff -7.98 % EDV(MOD-bp) 281.5 ml LVLs %diff -6.37 % ESV(MOD-bp) 243.2 ml EF(MOD-bp) 13.6 % SV(MOD-sp4) 25.0 ml SI(MOD-sp4) 12.1 ml/m\S\2 SV(MOD-sp2) 46.1 ml SI(MOD-sp2) 22.3 ml/m\S\2 SV(MOD-bp) 38.2 ml SI(MOD-bp) 18.5 ml/m\S\2 SV(sp4-el) 31.3 ml SI(sp4-el) 15.2 ml/m\S\2 SV(sp2-el) 43.3 ml SI(sp2-el) 21.0 ml/m\S\2 Doppler Measurements and Calculations MV E max maty 115.4 cm/sec MV A max maty 39.8 cm/sec MV E/A 2.9 MV dec time 0.16 sec Ao V2 max 91.2 cm/sec Ao max PG 3.3 mmHg Ao max PG (full) 2.2 mmHg JOSEFINA(V,A) 1.9 cm\S\2 JOSEFINA(V,D) 1.9 cm\S\2 LV V1 max PG 1.1 mmHg LV V1 max 52.9 cm/sec TR max maty 299.9 cm/sec
--- NOTE | 2017-01-26 17:11 | Cardiology Consultation ---
Cardiology Consultation Date of Consultation: Jan 26, 2017. Requesting Physician: Dr. Ritchie Reason for Consultation: Recurrent VT Pt evaluation today including: conversation w/ patient, conversation w/ family , physical exam, lab review, review of studies, review of inpatient medication list, conversation w/ attending History of Present Illness This is a very pleasant 65-year-old gentleman who has a long history of coronary artery disease with myocardial infarction 2002, bypass surgery that year, and resultant severe ischemic cardiomyopathy. He has had sustained ventricular tachycardia with treatment at [facility] including ablation of his ventricular tachycardia on January 08, 2010 and ICD implantation on January 14, 2010.. He then presented to [facility] on January 20, 2010 in sustained ventricular tachycardia, this was below the rate cut off of the device and after adjustment the device terminated the arrhythmia however it required an ICD shock as antitachycardia pacing did not work. He was subsequently transferred to [facility] for repeat ablation but an atrial clot was identified on echocardiography and therefore ablation could not be performed at that time. He presented again in sustained ventricular tachycardia to [facility] on February 27, 2010. He was transferred again down to [facility] on February 27, 2010 and was hospitalized there until discharge on March 05, 2010. Dr. Velarde was able to perform ventricular tachycardia ablation however there was difficulty in obtaining a good result. He was then as started on Tikosyn 500 mg twice a day. He did well for about 6 months, he then had recurrent ventricular tachycardia in August 2010 and subsequently had several episodes of ventricular tachycardia in the VF zone requiring ICD shock as well as visits to the emergency room. In the past his ventricular tachycardia had been very slow, in the range of 110 beats per minute, however he had several episodes that were much faster, with the rate around 200 beats per minute and he received a shock for that. He was hospitalized in mid November 2010 for recurrent ventricular tachycardia and his Tikosyn was discontinued and replaced with mexiletine after discussion with [facility]. His atrial pacing rate was increased to 90 beats per minute. On discussion with [facility] apparently the tachycardia originated from the septum and they did not feel that they could approach it with a further ablation procedure. Their suggestion was to continue the current medical regimen. However he had further episodes, he was evaluated at the [facility] however for various reasons that procedure was never scheduled, in part because he had difficulty with a nonhealing foot infection and eventually underwent left leg amputation. Eventually his ablation was performed at [facility] on 09/26/2011. I believe they did not feel the odds were great that they were successful, and apparently he had another event the evening after the ablation, and he was discharged on mexiletine 150 mg t.i.d. He did well for several years however so the procedure must have been more successful than was initially thought. He has had rare episodes of VT treated appropriately by his device and had been maintained on Mexiletine. That was working adequately well until he was admitted 11/01/2013 with more VT requiring ICD shocks, this tachycardia however was different and faster (CL 360), did not respond to ATP but did respond to ICD shock. He lost consciousness once because he was standing during the episode. There is no clear reason for his recurrent VT, he did not infarct, meds had not changed, electrolytes were not far off, LVEF was stable and he had not had recurrent infarction and no evidence of CHF by CXR or symptoms. I think he unfortunately developed a new form of VT, which was faster. He was started on amiodarone. His original ICD reached [place] and was replaced on 01/08/2014 using the original leads. 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 His amiodarone was discontinued, and after about one month Multaq was started on 01/26/2016. 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 Multaq seemed to have provided adequate suppression of his ventricular arrhythmia although he continued to have sporadic episodes. He then developed atrial fibrillation, we performed cardioversion 11/18/2016 and he has remained out of atrial fibrillation. At that time I increased his pacing rate (he primarily atrially paces) to 70 bpm. This was maintained in tell an office visit on 01/02/2017 where the pacing rate was reduced back down to 60 (as had been planned). He now presents with an episode of syncope, he does not recall a shock but device interrogation shows that he has had a marked increase in episodes of ventricular tachycardia following that office visit, about 50 episodes treated predominantly with ventricular overdrive pacing but the episode prompting admission was longer and required a shock. These are all slow arrhythmias in the 120 bpm range. I recommended discontinuing his Multaq, the last dose he took was on the morning of 01/25/2017. At the time of my evaluation this morning he feels well and has no complaints. His cardiovascular symptoms have not changed, he is still quite active and does not have exertional chest discomfort. Past Medical/Surgical History (1) Parox Ventric Tachycard (2) Atherosclerotic heart disease (3) ATRIAL FIBRILLATION (4) Chronic kidney disease Family History Heart disease Social History Smoking Status: Never Smoker History of Alcohol Use: No Review of Systems Constitutional: No fever, No weight loss, No weakness Respiratory: + cough, + shortness of breath, + dyspnea on exertion Cardiac: + see HPI, + edema, + palpitations, + problem reported (syncope) Abdomen: No pain, No nausea, No vomiting, No diarrhea, No GI bleeding Male : No urinary frequency, No nocturia more than once/night, No slowing stream, No sexual dysfunction Neurologic: No paralysis, No weakness, No numbness/tingling, No balance problems Heme: No abnormal bleeding/bruising, No clotting problems Endo: No fatigue Skin: No problem reported All Other Systems: Reviewed and Negative Allergies Coded Allergies: Heparin (Verified Allergy, Severe, CAUSES HIT, 01/25/17) Silver (Verified Adverse Reaction, Unknown, TOPICAL - BURNING, PAIN, ) TOPICAL USE Medications Current Inpatient Medications Medications (Trade) Dose Ordered Sig/Maya Route Start Time Stop Time Status Last Admin Dose Admin Nitroglycerin (Nitrostat Tab) 0.4 mg UD PRN SL 01/25/17 17:30 02/24/17 17:29 Atorvastatin Calcium (Lipitor Tab) 20 mg DAILY PO 01/26/17 09:00 02/25/17 08:59 01/26/17 08:39 20 MG Citalopram Hydrobromide (celeXA TAB) 20 mg DAILY PO 01/26/17 09:00 02/25/17 08:59 01/26/17 08:38 20 MG Gabapentin (Neurontin Tab) 600 mg BIDM PO 01/25/17 18:00 02/24/17 17:59 01/26/17 08:37 600 MG Isosorbide Mononitrate (Imdur Ext Rel Tab) 120 mg QAM PO 01/26/17 09:00 02/25/17 08:59 01/26/17 12:29 120 MG Lisinopril (Zestril Tab) 2.5 mg DAILY PO 01/26/17 09:00 02/25/17 08:59 01/26/17 08:40 2.5 MG Metoprolol Succinate (Toprol Xl Tab) 150 mg DAILY PO 01/26/17 09:00 02/25/17 08:59 01/26/17 08:39 150 MG Zolpidem Tartrate (Ambien Tab) 5 mg HS PRN PO 01/25/17 17:30 02/24/17 17:29 01/25/17 22:13 5 MG Physical Exam Vital Signs Past 12 Hours Date Time Temp Pulse Resp B/P (MAP) Pulse Ox O2 Delivery O2 Flow Rate FiO2 01/26/17 16:05 95 Room Air 01/26/17 15:44 36.4 75 18 108/68 (81) 95 Room Air 01/26/17 11:56 Room Air 01/26/17 10:52 36.7 71 20 111/75 (87) 96 Room Air 01/26/17 08:30 Room Air 01/26/17 08:14 36.7 58 16 96/60 (72) 93 Room Air Constitutional: General Apperance: heathly-appearing Level of Distress: NAD Psychiatric: Mental Status: active & alert Head: normocephalic Eyes: EOM: EOMI ENMT: normal ENT inspection, hearing grossly normal Neck: supple, no masses Lungs: Respiratory effort: no dyspnea, good air movement Auscultation: breath sounds normal, no wheezing Cardiovascular: Heart Auscultation: RRR, no murmurs, no rubs, no gallops Peripheral Pulses: Bruits: none appreciated Abdomen: Bowel Sounds: normal Inspection & Palpation: soft, no tenderness, guarding & rebound, no masses Musculoskeletal: pertinent finding (leg amputation with prosthesis) Extremities: no edema Neurologic: Cranial Nerves: grossly intact Sensation: grossly intact Data Laboratory Results: Last 24 Hours Test 01/25/17 17:16 01/26/17 00:18 01/26/17 06:09 Thyroid Stimulating Hormone (TSH) 0.967 uIu/ml Thyroxine (T4) 9.6 mcg/dl Total Creatine Kinase 60 U/L 50 U/L Creatine Kinase MB 0.7 ng/ml 1.0 ng/ml Creatine Kinase MB Ratio 1.2 2.0 Troponin I < 0.015 ng/ml < 0.015 ng/ml White Blood Count 5.16 K/uL Red Blood Count 4.64 M/uL Hemoglobin 12.8 g/dL Hematocrit 40.9 % Mean Corpuscular Volume 88.1 fL Mean Corpuscular Hemoglobin 27.6 pg Mean Corpuscular Hemoglobin Concent 31.3 g/dl Platelet Count 131 K/uL Mean Platelet Volume 11.2 fL Neutrophils (%) (Auto) 62.8 % Lymphocytes (%) (Auto) 25.4 % Monocytes (%) (Auto) 8.1 % Eosinophils (%) (Auto) 2.9 % Basophils (%) (Auto) 0.4 % Neutrophils # (Auto) 3.24 K/uL Lymphocytes # (Auto) 1.31 K/uL Monocytes # (Auto) 0.42 K/uL Eosinophils # (Auto) 0.15 K/uL Basophils # (Auto) 0.02 K/uL RDW Standard Deviation 47.7 fL RDW Coefficient of Variation 14.8 % Immature Granulocyte % (Auto) 0.4 % Immature Granulocyte # (Auto) 0.02 K/uL Sodium Level 141 mmol/L Potassium Level 4.5 mmol/L Chloride Level 108 mmol/L Carbon Dioxide Level 28 mmol/L Anion Gap 5.0 mmol/L Blood Urea Nitrogen 40 mg/dl Creatinine 1.70 mg/dl Est Creatinine Clear Calc Drug Dose 45.6 ml/min Estimated GFR () 47.0 Estimated GFR (Non- 40.5 BUN/Creatinine Ratio 23.3 Random Glucose 84 mg/dl Calcium Level 9.0 mg/dl Magnesium Level 2.4 mg/dl Imaging: An echocardiogram shows severe left ventricular dysfunction but unchanged from prior EKG: On admission atrial pacing with intact AV conduction but a prolonged UT interval, no acute changes. Telemetry reviewed: Predominantly atrial pacing, no further ventricular tachycardia Initial device interrogation as noted above, I reprogrammed his device today to a pacing rate of 70 bpm and no further ventricular tachycardia was identified ( consistent with telemetry). Assessment & Plan #1. Recurrent ventricular tachycardia: He has had a dramatic increase in the frequency of ventricular tachycardia since his January 02 visit, that may be coincidently related to decreasing his pacing rate or perhaps causally related to it. I therefore increased his pacing rate to 70 bpm, he is atrially pacing with intact AV conduction for the most part. We also discontinued his Multaq when he arrived in the emergency room yesterday, he took his last dose yesterday morning. Surprisingly he has had no further ventricular tachycardia since hospitalization despite the fact that he had multiple episodes daily prior to that. I'm going to leave him off of Multaq, and is possible it has become proarrhythmic. I would like to watch him for 24 hours off of Multaq with a pacing rate of 70 and see if he has recurrent ventricular arrhythmias. We have exhausted most of our options for antiarrhythmic therapy, we can consider sending him for repeat ablation if needed. #2. Atrial fibrillation: He has had no further atrial fibrillation since cardioversion, hopefully off of Multaq he will not have recurrence. #3. Cardiomyopathy: He continues to have a severe cardiomyopathy with a markedly reduced left ventricular ejection fraction, however it does not appear worse than before and he does surprisingly well clinically for the extent of left ventricular dysfunction he has. Thank you for allowing me to participate in his care.
--- NOTE | 2017-01-26 18:20 | Progress Note ---
Progress Note Date of Service Jan 26, 2017. Progress Note 66-year-old male admitted through the emergency room after a syncopal episode and documented recurrent ventricular tachycardia and episode of ventricular fibrillation. His ICD didn't deliver shock. His medical history is quite extensive including severe coronary artery disease with history of four-vessel coronary artery bypass graft with occlusion of 3 of the 4 grafts. The only patent graft was his CLEARY to LAD. He had ventricular arrhythmias. Ablation procedures in the past. Atrial fibrillation and atrial flutter. Recent cardioversion. Ischemic cardiomyopathy. Ejection fraction between 15 and 20%. Patient was admitted. His Multaq was discontinued. From the time of his admission through the night and throughout the day today he did not present with any recurrence of his ventricular tachycardia. He was seen in cardiology consultation by Dr. Bandar Sanders. Adjustments were made to his pacing. He is feeling quite well. He denied any headache or dizziness or lightheadedness. Has not had any chest pain. No shortness of breath. Good appetite. No abdominal pain. No nausea or vomiting. No problem urinating. No pain in his back or extremities. EXAMINATION : GENERAL: Well-developed in no distress VITAL SIGNS: Blood pressure 96/60, pulse 58, respirations 16, temperature 36.7, oxygen saturation 93% on room air SKIN: Warm and dry. No rash. HEENT: No mucosal abnormalities NECK: Supple. Nontender. No JVD. HEART: Regular heart sounds with 2/6 systolic murmur LUNGS: Clear. No evidence of any rales. ABDOMEN: Soft nontender without organomegaly or masses BACK: No spinal tenderness EXTREMITIES: Status post left Below the knee amputation. No edema. LABORATORY TESTS : WBC count 5160, hemoglobin 12.8, hematocrit 40.9, platelet count 131,000. Sodium 141, potassium 4.5, chloride 108, CO2 28, the line 40, creatinine 1.7, glucose 84, calcium 9.0, magnesium 2.4. Cardiac isoenzymes were negative Echocardiogram showed severely dilated left ventricle, severe global left ventricular dysfunction with an ejection fraction 15-20% inferior and septal wall akinesis, diastolic dysfunction, mild right ventricular dilatation with moderate dysfunction. [id number] pulmonary hypertension. Mild mitral and tricuspid regurgitation ASSESSMENT : * Syncope * Recurrent ventricular tachycardia * Ventricular fibrillation * Paroxysmal atrial fibrillation * Ischemic cardiomyopathy * Sleep apnea PLAN : * Will continue monitoring * continue the same medications * Increase activity * As outlined by Dr. Sanders would continue monitoring with the adjustments he made and off Multaq.
[2017-01-26] MEDS: ZOLPIDEM TARTRATE 5 MG TAB PO PRN (22:12)
[2017-01-27 03:20] VITALS: BP 115/73; PULSE 70; TEMP 36.5; O2SAT 96
[2017-01-27 07:15] LABS: BASO % 0.4 %; BASO ABS # 0.02 K/uL (0-0.2); COMPLETE YES; HEMATOCRIT 42.4 % (42-52); IG% 0.2 %; LYMPH % 23.5 %; LYMPH ABS # 1.24 K/uL (1.2-3.4); MEAN CELL VOLUME 86.7 fL (80-100); MEAN CORPUSCULAR HEMOGLOBIN 28.2 pg (25-34); MEAN CORPUSCULAR HGB CONC 32.5 g/dl (32-36); MEAN PLATELET VOLUME 11.7 fL (7.4-10.4); MONO % 6.5 %; NEUT % 65.4 %; PLATELET COUNT 128 K/uL (130-400); RED BLOOD COUNT 4.89 M/uL (4.7-6.1); WHITE BLOOD COUNT 5.27 K/uL (4.8-10.8)
[2017-01-27 07:23] LABS: INR 2.2 (0.9-1.1); PROTHROMBIN TIME (PATIENT) 24.6 SECONDS (9.0-12.0)
[2017-01-27 07:27] VITALS: BP 115/74; PULSE 68; TEMP 36.6; O2SAT 96
[2017-01-27 07:46] LABS: BUN/CREATININE RATIO 26.3 (10-20); CALCIUM 9.2 mg/dl (8.5-10.1); CREATININE 1.3 mg/dl (0.60-1.40); MAGNESIUM 2.4 mg/dl (1.8-2.4); POTASSIUM 4.1 mmol/L (3.5-5.1)
[2017-01-27] MEDS: GABAPENTIN 600 MG TAB PO SCH ×2 (07:53→15:50)
[2017-01-27] MEDS: ISOSORBIDE MONONITRATE 60 MG TABCR PO SCH (07:53)
[2017-01-27] MEDS: ATORVASTATIN 20 MG TAB PO SCH (07:53)
[2017-01-27] MEDS: METOPROLOL SUCC 50MG EXT REL TAB PO SCH (07:54)
[2017-01-27] MEDS: LISINOPRIL 2.5 MG TAB PO SCH (07:54)
[2017-01-27] MEDS: CITALOPRAM 20 MG TAB PO SCH (07:55)
[2017-01-27] MEDS ORDERED: BUMETANIDE IV 1 MG in SYRINGE 0 ML IV ONE (08:45)
[2017-01-27] MEDS ORDERED: POTASSIUM CHLORIDE 20 MEQ TABCR PO SCH (09:00)
--- NOTE | 2017-01-27 09:16 | Cardiology Follow-Up ---
Subjective Date of Service: Jan 27, 2017. Pt evaluation today including: conversation w/ patient, physical exam, lab review, review of studies, review of inpatient medication list History of Present Illness This is a very pleasant 65-year-old gentleman who has a long history of coronary artery disease with myocardial infarction 2002, bypass surgery that year, and resultant severe ischemic cardiomyopathy. He has had sustained ventricular tachycardia with treatment at [facility] including ablation of his ventricular tachycardia on January 08, 2010 and ICD implantation on January 14, 2010.. He then presented to [facility] on January 20, 2010 in sustained ventricular tachycardia, this was below the rate cut off of the device and after adjustment the device terminated the arrhythmia however it required an ICD shock as antitachycardia pacing did not work. He was subsequently transferred to [facility] for repeat ablation but an atrial clot was identified on echocardiography and therefore ablation could not be performed at that time. He presented again in sustained ventricular tachycardia to [facility] on February 27, 2010. He was transferred again down to [facility] on February 27, 2010 and was hospitalized there until discharge on March 05, 2010. Dr. Velarde was able to perform ventricular tachycardia ablation however there was difficulty in obtaining a good result. He was then as started on Tikosyn 500 mg twice a day. He did well for about 6 months, he then had recurrent ventricular tachycardia in August 2010 and subsequently had several episodes of ventricular tachycardia in the VF zone requiring ICD shock as well as visits to the emergency room. In the past his ventricular tachycardia had been very slow, in the range of 110 beats per minute, however he had several episodes that were much faster, with the rate around 200 beats per minute and he received a shock for that. He was hospitalized in mid November 2010 for recurrent ventricular tachycardia and his Tikosyn was discontinued and replaced with mexiletine after discussion with [facility]. His atrial pacing rate was increased to 90 beats per minute. On discussion with [facility] apparently the tachycardia originated from the septum and they did not feel that they could approach it with a further ablation procedure. Their suggestion was to continue the current medical regimen. However he had further episodes, he was evaluated at the [facility] however for various reasons that procedure was never scheduled, in part because he had difficulty with a nonhealing foot infection and eventually underwent left leg amputation. Eventually his ablation was performed at [facility] on 09/26/2011. I believe they did not feel the odds were great that they were successful, and apparently he had another event the evening after the ablation, and he was discharged on mexiletine 150 mg t.i.d. He did well for several years however so the procedure must have been more successful than was initially thought. He has had rare episodes of VT treated appropriately by his device and had been maintained on Mexiletine. That was working adequately well until he was admitted 11/01/2013 with more VT requiring ICD shocks, this tachycardia however was different and faster (CL 360), did not respond to ATP but did respond to ICD shock. He lost consciousness once because he was standing during the episode. There is no clear reason for his recurrent VT, he did not infarct, meds had not changed, electrolytes were not far off, LVEF was stable and he had not had recurrent infarction and no evidence of CHF by CXR or symptoms. I think he unfortunately developed a new form of VT, which was faster. He was started on amiodarone. His original ICD reached [facility] and was replaced on 01/08/2014 using the original leads. 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 His amiodarone was discontinued, and after about one month Multaq was started on 01/26/2016. 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 Multaq seemed to have provided adequate suppression of his ventricular arrhythmia although he continued to have sporadic episodes. He then developed atrial fibrillation, we performed cardioversion 11/18/2016 and he has remained out of atrial fibrillation. At that time I increased his pacing rate (he primarily atrially paces) to 70 bpm. This was maintained in tell an office visit on 01/02/2017 where the pacing rate was reduced back down to 60 (as had been planned). He now presents with an episode of syncope, he does not recall a shock but device interrogation shows that he has had a marked increase in episodes of ventricular tachycardia following that office visit, about 50 episodes treated predominantly with ventricular overdrive pacing but the episode prompting admission was longer and required a shock. These are all slow arrhythmias in the 120 bpm range. I recommended discontinuing his Multaq, the last dose he took was on the morning of 01/25/2017. I increased his pacing rate to 70 yesterday, but left him off Multaq. He has had no symptoms but had VT during the night. No complaints today. Social History Smoking Status: Never Smoker History of Alcohol Use: No Review of Systems Respiratory: + cough, + shortness of breath, + dyspnea on exertion Cardiac: + see HPI, + edema, + palpitations, + problem reported (syncope) Medications Cardiovascular: Item Value Date Time Bumetanide 1 mg 01/28/17 0900 (Bumex Tab) QAM/PO Warfarin Sodium 2 mg 01/27/17 1600 (Coumadin Tab) DAILY@16/PO Potassium Chloride 20 meq 01/27/17 0900 (Klor-Con Tab) QAM/PO Atorvastatin 20 mg 01/26/17 0900 Calcium DAILY/PO 01/27/17 0753 (Lipitor Tab) Isosorbide 120 mg 01/26/17 0900 Mononitrate QAM/PO 01/27/17 0753 (Imdur Ext Rel Tab) Lisinopril 2.5 mg 01/26/17 0900 (Zestril Tab) DAILY/PO 01/27/17 0754 Metoprolol 150 mg 01/26/17 0900 Succinate DAILY/PO 01/27/17 0754 (Toprol Xl Tab) Objective Vital Signs Past 12 Hours Date Time Temp Pulse Resp B/P (MAP) Pulse Ox O2 Delivery O2 Flow Rate FiO2 01/27/17 08:00 Room Air 01/27/17 07:27 36.6 68 16 115/74 (88) 96 Room Air 01/27/17 04:00 Room Air 01/27/17 03:20 36.5 70 18 115/73 (87) 96 Room Air 01/27/17 00:00 Room Air 01/26/17 23:26 36.6 75 20 152/69 (96) 97 Room Air Last Recorded Weight-Kilograms: 86.300 Physical Exam Constitutional: General Apperance: heathly-appearing Level of Distress: NAD Lungs: Respiratory effort: no dyspnea, good air movement Auscultation: breath sounds normal, no wheezing Cardiovascular: Heart Auscultation: RRR, no murmurs, no rubs, no gallops Peripheral Pulses: Bruits: none appreciated Extremities: no edema Data Laboratory Results: Last 24 Hours Test 01/27/17 06:54 White Blood Count 5.27 K/uL Red Blood Count 4.89 M/uL Hemoglobin 13.8 g/dL Hematocrit 42.4 % Mean Corpuscular Volume 86.7 fL Mean Corpuscular Hemoglobin 28.2 pg Mean Corpuscular Hemoglobin Concent 32.5 g/dl Platelet Count 128 K/uL Mean Platelet Volume 11.7 fL Neutrophils (%) (Auto) 65.4 % Lymphocytes (%) (Auto) 23.5 % Monocytes (%) (Auto) 6.5 % Eosinophils (%) (Auto) 4.0 % Basophils (%) (Auto) 0.4 % Neutrophils # (Auto) 3.45 K/uL Lymphocytes # (Auto) 1.24 K/uL Monocytes # (Auto) 0.34 K/uL Eosinophils # (Auto) 0.21 K/uL Basophils # (Auto) 0.02 K/uL RDW Standard Deviation 45.5 fL RDW Coefficient of Variation 14.5 % Immature Granulocyte % (Auto) 0.2 % Immature Granulocyte # (Auto) 0.01 K/uL Prothrombin Time 24.6 SECONDS Prothromb Time International Ratio 2.2 Sodium Level 138 mmol/L Potassium Level 4.1 mmol/L Chloride Level 106 mmol/L Carbon Dioxide Level 24 mmol/L Anion Gap 8.0 mmol/L Blood Urea Nitrogen 34 mg/dl Creatinine 1.30 mg/dl Est Creatinine Clear Calc Drug Dose 59.2 ml/min Estimated GFR () 65.0 Estimated GFR (Non- 56.1 BUN/Creatinine Ratio 26.3 Random Glucose 93 mg/dl Calcium Level 9.2 mg/dl Magnesium Level 2.4 mg/dl Telemetry reviewed: 11 episodes of monomorphic VT noted, all terminated quickly and appropriately with ATP. No shocks. Assessment and Plan #1. Recurrent ventricular tachycardia: He has had a dramatic increase in the frequency of ventricular tachycardia since his January 02 visit, that may be coincidently related to decreasing his pacing rate. Increasing his pacing rate back to 70 (but leaving him off Multaq) did not suppress the arrhythmia. Will probably need ablation. I will however try to temporize by increasing the pacing rate to 80 and restarting Multaq. The ICD is working very well and he is protected. #2. Atrial fibrillation: He has had no further atrial fibrillation since cardioversion. #3. Cardiomyopathy: He continues to have a severe cardiomyopathy with a markedly reduced left ventricular ejection fraction, however it does not appear worse than before and he does surprisingly well clinically for the extent of left ventricular dysfunction he has. Thank you for allowing me to participate in his care.
[2017-01-27] MEDS: DRONEDARONE 400 MG TAB PO SCH ×2 (09:41→20:10)
[2017-01-27 10:11] VITALS: BP 132/81; PULSE 84; O2SAT 95
[2017-01-27] MEDS ORDERED: LIDOCAINE 2% 20 MG/ML 5ML SYR ONE (11:14)
[2017-01-27] MEDS ORDERED: NURSING VERBAL MED ORDER ONE (11:15)
[2017-01-27] MEDS: LORAZEPAM 0.5 MG TAB PO PRN ×2 (11:18→18:16)
[2017-01-27 11:30] VITALS: BP 119/78; PULSE 97; TEMP 36.8; O2SAT 95
[2017-01-27] MEDS ORDERED: LIDOCAINE / D5W 4MG/ML DRIP 500 ML IV PRN (11:30)
[2017-01-27] MEDS ORDERED: LIDOCAINE IV ONE (11:30)
--- NOTE | 2017-01-27 15:37 | Progress Note ---
Progress Note Date of Service Jan 27, 2017. Progress Note 67-year-old male admitted with * Syncope * Recurrent ventricular tachycardia * Ventricular fibrillation * Coronary artery disease with first myocardial infarction in 2002. Subsequent myocardial infarction in 2009. Status post four-vessel coronary artery bypass graft. Subsequent cardiac catheterization documented occlusion of all 3 saphenous grafts. The only patent graft was CLEARY to LAD. * Paroxysmal atrial fibrillation. Status post cardioversion * Ischemic cardiomyopathy. Ejection fraction 15-20% * Chronic kidney disease * Sleep apnea * Chronic anticoagulation with Coumadin Patient was admitted. Cardiac isoenzymes did not show any evidence of myocardial infarction. His Multaq was discontinued. Adjustments were made to his pacer defibrillator. Subsequently he continues to have recurrent episodes of ventricular tachycardia. Very frequent since last night. With one of that episode he became lightheaded. No loss of consciousness. He is not aware of the biggest majority of the episodes of ventricular tachycardia. He denied any chest pain. No shortness of breath. This morning he was complaining of some pressure in the upper abdomen. No nausea no vomiting. No leg edema. He is post left [id number]-kvpm amputation. Because of the persistent recurrent ventricular tachycardia Dr. Sanders adjusted on his defibrillator and later on started him on IV lidocaine. EXAMINATION : GENERAL: Well-developed in no distress VITAL SIGNS: Blood pressure 119/78 , phosphorus 97, respiration 20, temperature 36.8, oxygen saturation 95% on room air SKIN: Warm and dry. No rash. HEENT: No mucosal abnormalities NECK: Supple. No adenopathy. No JVD. HEART: Regular heart sounds with 2/6 systolic murmur LUNGS: Are clear. ABDOMEN: Soft nontender without evident organomegaly or masses BACK: No spinal tenderness no edema clubbing or cyanosis. EXTREMITIES: No edema clubbing or cyanosis. Status post left BKA. LABORATORY TESTS : WBC count 5270, hemoglobin 13.8, hematocrit 42.4, platelet count 128,000. Sodium 138, potassium 4.1, chloride 106, CO2 24, BUN 34, creatinine 1.3, calcium 9.2, magnesium 2.4, glucose 93. ASSESSMENT : * Recurrent ventricular tachycardia * Coronary artery disease * Ischemic cardiomyopathy. Ejection fraction 15-20% * Sleep apnea PLAN : * I spoke with Dr. Sanders. He is currently on IV lidocaine. Tolerating it. He agreed that patient should be transferred to a different facility where other treatment options can be considered. * I spoke with the patient and his family and they are agreeable * I was able to make arrangements for him to be transparent stool [facility]. I spoke with Dr. Johny Srinivasan. * We are in the process of getting everything arranged for his to his transfer by ambulance with ACLS.
[2017-01-27] MEDS ORDERED: WARFARIN SOD 2 MG TAB PO SCH (16:00)
[2017-01-27 16:26] VITALS: BP 101/64; PULSE 84; TEMP 36.5; O2SAT 95
[2017-01-27 19:36] VITALS: BP 109/68; PULSE 86; TEMP 36.7; O2SAT 93
[2017-01-28] MEDS ORDERED: BUMETANIDE 1 MG TAB PO SCH (09:00)
--- NOTE | 2017-02-09 20:21 | Discharge Summary ---
Discharge Summary Date of Service Feb 09, 2017. Discharge Summary ADMISSION DATE: 01/25/2017 DISCHARGE DATE: 01/27/2017 (patient was transferred to [facility] in [place]) DISCHARGE DIAGNOSES: * syncope * Recurrent ventricular tachycardia * Ventricular fibrillation * Coronary artery disease. Status post four-vessel coronary artery bypass graft * Severe cardiomyopathy. Ischemic * Paroxysmal atrial fibrillation * Atrial flutter status post ablation * Dual-chamber ICD * Sleep apnea * Cholelithiasis * Depression * Left qldmo-vqj-qams amputation DISCHARGE MEDICATIONS: as noted on his transfer forms Consultation: Dr. Bandar Sanders in cardiology 66-year-old male admitted through the emergency room after a syncopal episode. His pacemaker interrogation revealed evidence of recurrent ventricular tachycardia and also ventricular fibrillation. His ICD was discharged. Patient with extensive medical history as noted above. He was sitting on his porch reading a newspaper. On 2 occasions he noted that the paper fell out of his right hand. He stood up and did not feel . He fell to the floor. There was definitely a period of loss of consciousness. He stood up after that and was able to walk. He called his . He did pain injury when he fell down. He hit the back of his neck. Also his right elbow and right knee. He was brought to the emergency room. He was evaluated. His pacemaker/ICD was interrogated. The ICD did discharge. Dr. Malone spoke with Dr. Sanders. He recommended discontinuation of Multaq. I saw the patient in the emergency room and he was admitted to PCU with telemetry. PAST MEDICAL HISTORY, SOCIAL HISTORY, FAMILY HISTORY: As noted on admission history and physical ALLERGIES: heparin ADMISSION MEDICATIONS: As noted on the home medication list PHYSICAL EXAMINATION AND LABORATORY TESTS ARE NOTED ON ADMISSION HITORY AND PHYSICAL HOSPITAL COURSE: patient was admitted to PCU with telemetry. Resuscitation level I. cardiology consultation was requested. Cardiac isoenzymes and serial electrocardiograms were ordered. An echocardiogram was also ordered. Initially after admission he was doing well her. He did not have recurrent episodes of ventricular tachycardia. But shortly afterwards he had multiple episodes. He was started on IV lidocaine. Patient has been tried on multiple medications in the past. He has had prior ablation procedure. His workup did not show any evidence of myocardial infarction. His echocardiogram showed severe cardiomyopathy with an ejection fraction between 15 and 20%. Because of the persistence of his ventricular tachycardia the decision was made to transfer the patient to tertiary care facility. He had been at the [facility] in the past.I did call the [facility]. Unfortunately there was no bed available for 3-4 days. I called [facility]. There was no bed available that same day. I called [facility] in [place]. I spoke with Dr. Johny Srinivasan. The patient was accepted. Arrangements were made for transfer there by ambulance. He was continued on the IV lidocaine infusion.
== END 2017-01-27 22:00 | disposition short-term general hospital (02) | DRG 309 ==
LOC: C.EDB 14:23 → C.2T 17:33 → ENRESERV 17:51
PROVIDERS: ADMIT Internal Medicine; ATTEND Internal Medicine
DX: I47.2 Ventricular tachycardia (principal); I25.810 Atherosclerosis of coronary artery bypass graft(s) without angina pectoris; I49.01 Ventricular fibrillation; R55 Syncope and collapse; M54.2 Cervicalgia; M79.641 Pain in right hand; M25.561 Pain in right knee; W18.39XA Other fall on same level, initial encounter; Y92.008 Other place in unspecified non-institutional (private) residence as the place of occurrence of the external cause; I48.0 Paroxysmal atrial fibrillation; I25.5 Ischemic cardiomyopathy; I50.9 Heart failure, unspecified; N18.9 Chronic kidney disease, unspecified; G47.33 Obstructive sleep apnea (adult) (pediatric); I25.2 Old myocardial infarction; Z95.810 Presence of automatic (implantable) cardiac defibrillator; Z95.1 Presence of aortocoronary bypass graft; Z99.89 Dependence on other enabling machines and devices; Z89.512 Acquired absence of left leg below knee; Z87.891 Personal history of nicotine dependence; Z82.49 Family history of ischemic heart disease and other diseases of the circulatory system; Z79.01 Long term (current) use of anticoagulants; Z79.899 Other long term (current) drug therapy

== ENCOUNTER → 2017-02-08 | Outpatient (CLI) | payer OTHER ==
[~2017-02-08] MED LIST changes: -AMB10 PO; +DRN400 PO; +WARF2TAB8 PO; -WARF3TAB PO; +ZOLP10TA6 PO
[2017-02-08 14:50] LABS: BASO % 0.3 %; BASO ABS # 0.02 K/uL (0-0.2); COMPLETE YES; EOS % 1.2 %; HEMATOCRIT 41.5 % (42-52); IG% 0.2 %; LYMPH % 13.6 %; LYMPH ABS # 0.88 K/uL (1.2-3.4); MEAN CELL VOLUME 87.6 fL (80-100); MEAN CORPUSCULAR HEMOGLOBIN 28.3 pg (25-34); MEAN CORPUSCULAR HGB CONC 32.3 g/dl (32-36); MEAN PLATELET VOLUME 11.3 fL (7.4-10.4); MONO % 9.3 %; NEUT % 75.4 %; PLATELET COUNT 152 K/uL (130-400); RED BLOOD COUNT 4.74 M/uL (4.7-6.1); WHITE BLOOD COUNT 6.47 K/uL (4.8-10.8)
[2017-02-08 14:58] LABS: BLOOD UREA NITROGEN 18 mg/dl (7-18); BUN/CREATININE RATIO 16.5 (10-20); CALCIUM 9.3 mg/dl (8.5-10.1); CARBON DIOXIDE 23 mmol/L (21-32); CHLORIDE 106 mmol/L (98-107); GLUCOSE 87 mg/dl (70-99); SODIUM 139 mmol/L (136-145)
[2017-02-08 14:59] LABS: INR 1.1 (0.9-1.1); PROTHROMBIN TIME (PATIENT) 12.3 SECONDS (9.0-12.0)
== END | disposition home or self-care (01) ==
LOC: C.LABSPEC 14:40
PROVIDERS: ATTEND Internal Medicine
DX: S30.1XXA Contusion of abdominal wall, initial encounter (principal); X58.XXXA Exposure to other specified factors, initial encounter; I48.91 Unspecified atrial fibrillation; I25.10 Atherosclerotic heart disease of native coronary artery without angina pectoris

== ENCOUNTER → 2017-02-16 | Outpatient (CLI) | payer OTHER ==
[2017-02-16 18:10] LABS: INR 1.3 (0.9-1.1); PROTHROMBIN TIME (PATIENT) 13.8 SECONDS (9.0-12.0)
== END | disposition home or self-care (01) ==
LOC: C.LABSPEC 17:38
PROVIDERS: ATTEND Internal Medicine
DX: I48.0 Paroxysmal atrial fibrillation (principal); E79.0 Hyperuricemia without signs of inflammatory arthritis and tophaceous disease

== ENCOUNTER → 2017-02-27 | Outpatient (CLI) | payer OTHER ==
[2017-02-27 18:53] LABS: PROTHROMBIN TIME (PATIENT) 22.1 SECONDS (9.0-12.0)
== END | disposition home or self-care (01) ==
LOC: C.LABSPEC 17:36
PROVIDERS: ATTEND Internal Medicine
DX: I48.0 Paroxysmal atrial fibrillation (principal); Z79.01 Long term (current) use of anticoagulants

== ENCOUNTER → 2017-03-15 | Outpatient (CLI) | payer OTHER ==
[~2017-03-15] MED LIST changes: +METO100T44 PO; -METO1TAB69 PO
[2017-03-15 15:14] LABS: PROTHROMBIN TIME (PATIENT) 42.6 SECONDS (9.0-12.0)
[2017-03-15 15:19] LABS: INR 3.8 (0.9-1.1)
== END | disposition home or self-care (01) ==
LOC: C.LABSPEC 14:47
PROVIDERS: ATTEND Internal Medicine
DX: I48.0 Paroxysmal atrial fibrillation (principal); Z79.01 Long term (current) use of anticoagulants

== ENCOUNTER → 2017-03-24 | Outpatient (CLI) | payer OTHER ==
[2017-03-24 12:56] LABS: BASO % 0.4 %; BASO ABS # 0.02 K/uL (0-0.2); COMPLETE YES; EOS % 2.4 %; HEMATOCRIT 44.4 % (42-52); IG% 0.2 %; LYMPH % 22.4 %; LYMPH ABS # 1.02 K/uL (1.2-3.4); MEAN CELL VOLUME 91.5 fL (80-100); MEAN CORPUSCULAR HEMOGLOBIN 29.3 pg (25-34); MEAN PLATELET VOLUME 12.5 fL (7.4-10.4); MONO % 10.3 %; NEUT % 64.3 %; PLATELET COUNT 136 K/uL (130-400); RED BLOOD COUNT 4.85 M/uL (4.7-6.1); WHITE BLOOD COUNT 4.56 K/uL (4.8-10.8)
[2017-03-24 13:22] LABS: ALT/SGPT 30 U/L (12-78); AST/SGOT 23 U/L (15-37); BLOOD UREA NITROGEN 23 mg/dl (7-18); BUN/CREATININE RATIO 20.2 (10-20); CALCIUM 8.4 mg/dl (8.5-10.1); CARBON DIOXIDE 29 mmol/L (21-32); CHLORIDE 107 mmol/L (98-107); CREATININE 1.12 mg/dl (0.60-1.40); GLUCOSE 99 mg/dl (70-99); MAGNESIUM 2.6 mg/dl (1.8-2.4); POTASSIUM 4.1 mmol/L (3.5-5.1); SODIUM 141 mmol/L (136-145)
[2017-03-24 13:26] LABS: ALKALINE PHOSPHATASE 118 U/L (45-117); CHOLESTEROL 137 mg/dl (0-200); CHOLESTEROL/HDL RATIO 4.3; HDL CHOLESTEROL 32 mg/dl; TRIGLYCERIDES 190 mg/dl (0-150); VERY LOW DENSITY LIPOPROT CALC 38 mg/dl
== END | disposition home or self-care (01) ==
LOC: C.LABSPEC 12:19
PROVIDERS: ATTEND Internal Medicine
DX: I25.10 Atherosclerotic heart disease of native coronary artery without angina pectoris (principal)

== ENCOUNTER → 2017-04-12 | Outpatient (CLI) | payer OTHER ==
[2017-04-12 16:28] LABS: INR 1.3 (0.9-1.1)
== END | disposition home or self-care (01) ==
LOC: C.LABSPEC 14:55
PROVIDERS: ATTEND Internal Medicine
DX: Z51.81 Encounter for therapeutic drug level monitoring (principal); I48.0 Paroxysmal atrial fibrillation; Z79.01 Long term (current) use of anticoagulants

== ENCOUNTER → 2017-04-25 | Outpatient (CLI) | payer OTHER ==
[~2017-04-25] MED LIST changes: +ASPI81TA28 PO; +BTP80 PO; +CLC6 PO; +CRFUDL PO; +LISI-1116 PO; -LISI2.5T5 PO; +METO-217 PO; +METO50TA16 PO; +MEXI200C PO; +MXT150 PO; +OXYC-57 PO; +OXYC-90 PO; +PANT40TA PO; +PANT40TA2 PO; +WARF-285 PO; +WARF-298 PO; +WARF3TAB PO; +ZNT150 PO
[2017-04-25 18:11] LABS: INR 2.6 (0.9-1.1)
== END | disposition home or self-care (01) ==
LOC: C.LABSPEC 12:59
PROVIDERS: ATTEND Internal Medicine
DX: I48.0 Paroxysmal atrial fibrillation (principal); Z79.01 Long term (current) use of anticoagulants; Z51.81 Encounter for therapeutic drug level monitoring

== ENCOUNTER → 2017-05-26 | Outpatient (CLI) | payer OTHER ==
[~2017-05-26] MED LIST changes: -BTP80 PO; -CLC6 PO; -CRFUDL PO; -DRN400 PO; -ISOS120T5 PO; -LISI-1116 PO; +LISI2.5T5 PO; -METO-217 PO; -METO100T44 PO; -MEXI200C PO; -OXYC-57 PO; -OXYC-90 PO; -PANT40TA PO; -PANT40TA2 PO; -WARF-285 PO; -WARF-298 PO; -WARF2TAB8 PO; -ZNT150 PO
[2017-05-26 13:30] LABS: INR 2.4 (0.9-1.1)
== END | disposition home or self-care (01) ==
LOC: C.LABSPEC 12:27
PROVIDERS: ATTEND Internal Medicine
DX: I48.0 Paroxysmal atrial fibrillation (principal); Z51.81 Encounter for therapeutic drug level monitoring; Z79.01 Long term (current) use of anticoagulants

== ENCOUNTER → 2017-06-09 | Outpatient (CLI) | payer OTHER ==
[2017-06-09 18:25] LABS: INFLUENZA B ANTIGEN Neg for Influ B (NEG)
== END | disposition home or self-care (01) ==
LOC: C.LABSPEC 17:39
PROVIDERS: ATTEND Internal Medicine
DX: B34.9 Viral infection, unspecified (principal)

== ENCOUNTER → 2017-07-03 | Outpatient (CLI) | payer OTHER ==
[2017-07-03 15:06] LABS: INR 1.9 (0.9-1.1)
== END | disposition home or self-care (01) ==
LOC: C.LABSPEC 14:24
PROVIDERS: ATTEND Internal Medicine
DX: I48.0 Paroxysmal atrial fibrillation (principal); Z79.01 Long term (current) use of anticoagulants

== ENCOUNTER → 2017-07-25 | Outpatient (CLI) | payer OTHER ==
[2017-07-25 18:07] LABS: BLOOD UREA NITROGEN 21 mg/dl (7-18); CALCIUM 8.9 mg/dl (8.5-10.1); CARBON DIOXIDE 25 mmol/L (21-32); CREATININE 1.26 mg/dl (0.60-1.40); GLUCOSE 102 mg/dl (70-99); SODIUM 138 mmol/L (136-145)
[2017-07-25 18:14] LABS: INR 2.2 (0.9-1.1)
== END | disposition home or self-care (01) ==
LOC: C.LABSPEC 17:00
PROVIDERS: ATTEND Internal Medicine
DX: I25.10 Atherosclerotic heart disease of native coronary artery without angina pectoris (principal); I48.0 Paroxysmal atrial fibrillation; I49.9 Cardiac arrhythmia, unspecified

== ENCOUNTER 2017-08-19 14:53 | Emergency (ER) | payer OTHER ==
[~2017-08-19] VITALS: Ht 175.3 cm; Wt 98.7 kg
[~2017-08-19 14:53] MED LIST changes: -CITA20TA9 PO; -LISI2.5T5 PO; -NTRGSL/4 UT; -POTA1CAP2 PO; -ZOLP10TA6 PO
[2017-08-19 14:55] VITALS: TEMP 36.8; Ht 175.3 cm; Wt 98.7 kg
[2017-08-19] MEDS ORDERED: OXYCODONE HCL IR 5 MG TAB (IMMEDIATE RELEASE) PO STA (15:01)
[2017-08-19] MEDS ORDERED: POTA1CAP2 PO (15:14)
[2017-08-19] MEDS ORDERED: ZOLP10TA6 PO (15:23)
[2017-08-19] MEDS ORDERED: METO-217 PO (15:31)
[2017-08-19] MEDS ORDERED: MEXI200C PO (15:38)
[2017-08-19] MEDS ORDERED: WARF-298 PO (15:38)
[2017-08-19] MEDS ORDERED: CITA20TA9 PO (16:19)
[2017-08-19] MEDS ORDERED: NTRGSL/4 UT (17:20)
--- NOTE | 2017-08-19 17:29 | DIAGNOSTIC IMAGING REPORT ---
PELVIS 1 OR 2 VIEW ROUTINE, R HIP UNILATERAL 2 VIEWS, R FEMUR 2 VIEWS ROUTINE CLINICAL HISTORY: Fall. Pelvic and rightleg pain. COMPARISON STUDY: None. FINDINGS: No fracture or dislocation within the pelvis, hips, right femur. Mild osteoarthritis within the bilateral hips. The sacrum appears intact. Mild vascular calcifications. No radiopaque foreign bodies. No significant knee effusion. IMPRESSION: No fractures within the pelvis, hips, or right femur. Electronically signed by: Cosme Ordoñez M.D. 08/19/2017 5:27 PM Dictated Date/Time: 08/19/2017 5:23 PM
--- NOTE | 2017-08-19 17:31 | DIAGNOSTIC IMAGING REPORT ---
LUMBAR SPINE 5 VIEWS HISTORY: Low back pain. COMPARISON: None. FINDINGS: There is no fracture. There appears a bilateral L5 spondylolysis with associated grade II spondylolisthesis. This measures up to 1.1 cm. Moderate disc space narrowing at L5-S1. Mild disc space narrowing throughout the remaining lumbar spine with large endplate osteophytes. Minimal anterior wedging at T12 is likely within the range of normal limits. No definite fractures identified within the lumbar spine. IMPRESSION: No rash or within the lumbar spine. Electronically signed by: Cosme Ordoñez M.D. 08/19/2017 5:30 PM Dictated Date/Time: 08/19/2017 5:28 PM
[2017-08-19] MEDS ORDERED: OXYC1TAB3 PO (17:40)
[2017-08-19] MEDS ORDERED: LISI-1116 PO (17:59)
--- NOTE | 2017-08-19 18:08 | EMERGENCY ROOM VISIT NOTE ---
History Report prepared by Abdullahi: Yoel Martinez Under the Supervision of: Dr. Jonel Malone M.D. First contact with patient: 14:54 Chief Complaint: FALL Stated Complaint: fall with leg pain History of Present Illness The patient is a 66 year old male who presents to the Emergency Room with complaints of constant, 8/10 right hamstring pain secondary to a fall earlier today. The patient notes that he was climbing up the stairs in his home when he fell from the first step. He states that he removed the handrail on his stairs to paint the wall. He forgot it was not there and reach for it to support his weight and then he fell afterwards onto his buttocks. The patient reports that he twisted when he fell and felt the muscle pulled in the back of his right thigh. The patient denies injuring his head, back, neck, or knees during the fall. He also denies experiencing any leg pain before the fall. The patient reports a history of a-fib. Source of History: patient Onset: earlier today Position: leg (right proximal) Symptom Intensity: severe (8/10) Timing: constant Modifying Factors (Worsening): movement Associated Symptoms: No neck pain, No back pain Note: Denies: Injuring head, or knees during fall. Review of Systems See HPI for pertinent positives & negatives. A total of 10 systems reviewed and were otherwise negative. Past Medical & Surgical Medical Problems: (1) AC MYOCARD INFARCT INFRPSTERIOR WALL,INIT EPIS CAR (2) ANTICOAGULANTS,LT,CURRENT USE (3) ANXIETY STATE NOS (4) AORTOCORONARY BYPASS (5) ARTERIAL EMBOLISM NOS (6) Atherosclerotic heart disease (7) ATRIAL FIBRILLATION (8) BELOW KNEE AMPUTATION STATUS (9) CARDIAC PACEMAKER IN SITU (10) CHF,CARDIOMYOPATHY EF 12-20% (11) Chronic kidney disease (12) CORONARY ATHEROSCLEROSIS OF [place] CORONARY VESSEL (13) Parox Ventric Tachycard (14) Recurrent ventricular tachycardia (15) SYNCOPE, V.TACH.,V FIB.,CAD (16) SYNCOPE,CAD,?CHOLECYSTITIS, Family History Heart disease Social History Smoking Status: Never Smoker Alcohol Use: none Marital Status: Housing Status: lives with family Occupation Status: employed Current/Historical Medications Scheduled Aspirin (Aspirin Ec), 81 MG PO DAILY Atorvastatin (Lipitor), 20 MG PO DAILY Bumetanide (Bumex), 1 TAB PO DAILY Citalopram Hydrobromide (Celexa), 20 MG PO DAILY Gabapentin (Neurontin), 600 MG PO BID UD Lisinopril (Lisinopril), 2.5 MG PO DAILY Metoprolol Succinate (Toprol Xl), 50 MG PO DAILY Mexiletine Hcl (Mexiletine Hcl), 200 MG PO TID Nitroglycerin (Nitrostat), 0.4 MG UT PRN Potassium Chloride (Potassium Chloride Er), 20 MEQ PO DAILY Warfarin Sod (Warfarin Sodium), 3 MG PO DAILY Scheduled PRN Lorazepam (Ativan), 0.5 MG PO TID PRN for Anxiety Oxycodone Ir (Roxicodone Ir), 5 MG PO Q4H PRN for Pain Zolpidem Tartrate (Zolpidem Tartrate), 1 TAB PO HS PRN for Sleep Allergies Coded Allergies: Heparin (Verified Allergy, Severe, CAUSES HIT, 01/25/17) Silver (Verified Adverse Reaction, Unknown, TOPICAL - BURNING, PAIN, ) TOPICAL USE Physical Exam Vital Signs Date Time Temp Pulse Resp B/P (MAP) Pulse Ox O2 Delivery O2 Flow Rate FiO2 08/19/17 16:39 94 18 92/56 94 Room Air 08/19/17 14:55 36.8 92 18 120/67 96 Room Air Physical Exam Constitutional: Vital signs reviewed. Normocephalic, atraumatic. Eyes: Pupils are equal round reactive to light. Conjunctiva are noninjected. ENT: Pharynx is clear without erythema or exudate. Mucous membranes are moist. Neck supple without meningeal signs. Respiratory: Clear to auscultation bilaterally. Breath sounds are equal bilaterally. Cardiovascular: Regular rate and rhythm. No rubs or gallops. GI: Soft, nondistended and nontender. Bowel sounds are present. Musculoskeletal: No midline tenderness to cervical spine. Left BKA with prosthesis. No swelling or discoloration to the right leg. No tenderness to the hip or knee. Normal distal pules. Pain with flexion of the right knee. Integumentary: No cyanosis. Neurological: The patient is awake and alert. No focal deficits. Psychiatric: Normal affect. Medical Decision & Procedures ER Provider Diagnostic Interpretation: Radiology results as stated below per my review and the radiologist's interpretation: PELVIS 1 OR 2 VIEW ROUTINE, R HIP UNILATERAL 2 VIEWS, R FEMUR 2 VIEWS ROUTINE CLINICAL HISTORY: Fall. Pelvic and rightleg pain. COMPARISON STUDY: None. FINDINGS: No fracture or dislocation within the pelvis, hips, right femur. Mild osteoarthritis within the bilateral hips. The sacrum appears intact. Mild vascular calcifications. No radiopaque foreign bodies. No significant knee effusion. IMPRESSION: No fractures within the pelvis, hips, or right femur. Electronically signed by: Cosme Ordoñez M.D. 08/19/2017 5:27 PM Dictated Date/Time: 08/19/2017 5:23 PM PELVIS 1 OR 2 VIEW ROUTINE, R HIP UNILATERAL 2 VIEWS, R FEMUR 2 VIEWS ROUTINE CLINICAL HISTORY: Fall. Pelvic and rightleg pain. COMPARISON STUDY: None. FINDINGS: No fracture or dislocation within the pelvis, hips, right femur. Mild osteoarthritis within the bilateral hips. The sacrum appears intact. Mild vascular calcifications. No radiopaque foreign bodies. No significant knee effusion. IMPRESSION: No fractures within the pelvis, hips, or right femur. Electronically signed by: Cosme Ordoñez M.D. 08/19/2017 5:27 PM Dictated Date/Time: 08/19/2017 5:23 PM [~ rep ct add3]] PELVIS 1 OR 2 VIEW ROUTINE, R HIP UNILATERAL 2 VIEWS, R FEMUR 2 VIEWS ROUTINE CLINICAL HISTORY: Fall. Pelvic and rightleg pain. COMPARISON STUDY: None. FINDINGS: No fracture or dislocation within the pelvis, hips, right femur. Mild osteoarthritis within the bilateral hips. The sacrum appears intact. Mild vascular calcifications. No radiopaque foreign bodies. No significant knee effusion. IMPRESSION: No fractures within the pelvis, hips, or right femur. Electronically signed by: Cosme Ordoñez M.D. 08/19/2017 5:27 PM Dictated Date/Time: 08/19/2017 5:23 PM LUMBAR SPINE 5 VIEWS HISTORY: Low back pain. COMPARISON: None. FINDINGS: There is no fracture. There appears a bilateral L5 spondylolysis with associated grade II spondylolisthesis. This measures up to 1.1 cm. Moderate disc space narrowing at L5-S1. Mild disc space narrowing throughout the remaining lumbar spine with large endplate osteophytes. Minimal anterior wedging at T12 is likely within the range of normal limits. No definite fractures identified within the lumbar spine. IMPRESSION: No rash or within the lumbar spine. Electronically signed by: Cosme Ordoñez M.D. 08/19/2017 5:30 PM Dictated Date/Time: 08/19/2017 5:28 PM Medications Administered Medications (Trade) Dose Ordered Sig/Maya Route Start Time Stop Time Status Last Admin Dose Admin Oxycodone HCl (Roxicodone Immediate Rel Tab) 5 mg NOW STAT PO 08/19/17 15:01 08/19/17 15:03 DC 08/19/17 15:10 5 MG ED Course 1450: The patient was evaluated in room A12B. A complete history and physical exam was performed. 1501: Ordered Oxycodone HCL 5mg PO. 1608: I reevaluated the patient. His pain is more dull. Waiting on X-ray. 1645: I reevaluated the patient. He now complains of only little pain behind his left leg when he moves it. He denies any back pain. 1710: PDNP no matching patient's found. 1725: I reevaluated the patient. He says he is able to use crutches. 1737: I reevaluated the patient. He does not want crutches as he already has a pair at home. Discussed x-ray results with the patient. Medical Decision This is a 66-year-old male who presents with right leg pain after a fall today. Differential diagnosis includes hamstring injury, muscle tear, femur fracture , pelvic fracture, vertebral compression fracture, lumbar disc disease. I did perform a limited focused review of portions of the patient's old chart on the electronic medical record. The patient has had no recent pertinent visits to this hospital. I did evaluate the patient as noted above. The patient fell on his buttock after grabbing for a handrail that was not there. He twisted while he fell and felt like he pulled a muscle in his right posterior thigh. He denies any back pain. He is neurovascularly intact. He denies any other injuries. I did treat patient with oxycodone which he has had in the past. I did order the patient's x-rays as described above. I did review the images myself as well as the radiology report as described above. Has no fractures to the pelvis, hip or femur. He does have narrowing of his disc space at L5-S1. I did reassess the patient. He does state that he is having some pain in the back of his left leg when he moves as well. Initially I thought he likely had a hamstring injury but this is unclear. Given he has pain on both sides of the same character it is possible that he has some sort of lumbar radiculopathy that was exacerbated by the fall. I did give him a prescription for oxycodone. He was given precautions regarding this medication. He will follow-up with his doctor and/or orthopedic doctor. He was offered crutches but stated he had them at home already. He was discharged in good condition. Medication Reconcilliation Current Medication List: was personally reviewed by me Blood Pressure Screening Patient's blood pressure: Normal blood pressure Impression Primary Impression: Right leg injury Additional Impressions: Fall Lumbar disc disease Scribe Attestation The scribe's documentation has been prepared under my direct and personally reviewed by me in its entirety. I confirm that the note above accurately reflects all work, treatment, procedures, and medical decision making performed by me. Departure Information Dispostion Home / Self-Care Prescriptions Oxycodone Ir (Roxicodone Ir) 5 Mg Tab 5 MG PO Q4H Y for Pain, #20 TAB Prov: Jonel Malone M.D. 08/19/17 Referrals Will Craig M.D. (PCP) Forms HOME CARE DOCUMENTATION FORM, IMPORTANT VISIT INFORMATION Patient Instructions My [facility] [employer], Oxycodone tablets or capsules Additional Instructions The cause of your pain is unclear at this time. It can be secondary to lumbar disc disease or a hamstring injury. You have been examined and treated today on an emergency basis only. This is not a substitute for, or an effort to provide, complete comprehensive medical care. It is impossible to recognize and treat all injuries or illnesses in a single emergency department visit. It is therefore important that you follow up closely with your physician or an orthopedic physician. Call as soon as possible for an appointment. Return for worsening symptoms or if you develop fever, vomiting, abdominal pain, loss of control of your bowel or bladder, numbness or weakness to your legs, numbness to your private area, difficulty urinating, or any other concerning symptoms. Problem Qualifiers Primary Impression: Right leg injury Encounter type: initial encounter Qualified Codes: S89.91XA - Unspecified injury of right lower leg, initial encounter Additional Impressions: Fall Encounter type: initial encounter Qualified Codes: W19.XXXA - Unspecified fall, initial encounter
[2017-08-19] MEDS ORDERED: PERCOCET HOME PACK PO ONE (18:15)
[2017-08-19 18:20] VITALS: BP 98/66; PULSE 93; O2SAT 95
== END 2017-08-19 18:25 | disposition home or self-care (01) ==
LOC: EDBD 14:53 → C.EDA 14:54
DX: S79.921A Unspecified injury of right thigh, initial encounter (principal); M79.605 Pain in left leg; M25.561 Pain in right knee; W10.9XXA Fall (on) (from) unspecified stairs and steps, initial encounter; Y93.01 Activity, walking, marching and hiking; Y92.009 Unspecified place in unspecified non-institutional (private) residence as the place of occurrence of the external cause; M48.07 Spinal stenosis, lumbosacral region; N18.9 Chronic kidney disease, unspecified; I47.2 Ventricular tachycardia; I48.91 Unspecified atrial fibrillation; I50.9 Heart failure, unspecified; I25.10 Atherosclerotic heart disease of native coronary artery without angina pectoris; I25.2 Old myocardial infarction; Z79.82 Long term (current) use of aspirin; Z79.01 Long term (current) use of anticoagulants; Z95.1 Presence of aortocoronary bypass graft; Z89.512 Acquired absence of left leg below knee; Z95.0 Presence of cardiac pacemaker; Z88.8 Allergy status to other drugs, medicaments and biological substances; Z91.048 Other nonmedicinal substance allergy status

== ENCOUNTER → 2017-08-24 | Outpatient (CLI) | payer OTHER ==
[~2017-08-24] MED LIST changes: -AMOX500C3 PO; +CITA20TA9 PO; +LISI-1116 PO; +METO-217 PO; -METO50TA16 PO; +MEXI200C PO; -MXT150 PO; +NTRGSL/4 UT; +OXYC1TAB3 PO; +POTA1CAP2 PO; +WARF-298 PO; -WARF3TAB PO; +ZOLP10TA6 PO
[2017-08-24 18:43] LABS: INR 1.8 (0.9-1.1)
== END | disposition home or self-care (01) ==
LOC: C.LABSPEC 16:45
PROVIDERS: ATTEND Internal Medicine
DX: I48.91 Unspecified atrial fibrillation (principal)

== ENCOUNTER → 2017-09-19 | Outpatient (CLI) | payer OTHER ==
[2017-09-19 18:27] LABS: INR 3.9 (0.9-1.1)
== END | disposition home or self-care (01) ==
LOC: C.LABSPEC 17:01
PROVIDERS: ATTEND Internal Medicine
DX: Z51.81 Encounter for therapeutic drug level monitoring (principal); I48.0 Paroxysmal atrial fibrillation; Z79.01 Long term (current) use of anticoagulants

== ENCOUNTER 2017-12-09 11:02 | Inpatient (IN) | payer OTHER ==
[~2017-12-09] VITALS: Ht 175.3 cm; Wt 90.2 kg
[~2017-12-09 11:02] MED LIST changes: -OXYC1TAB3 PO
[2017-12-09] MEDS ORDERED: ALUMINUM/MAGNESIUM SUSP 30 ML UDC PO STA (11:24)
--- NOTE | 2017-12-09 11:26 | EMERGENCY ROOM VISIT NOTE ---
History Report prepared by Abdullahi: Torri Hazel Under the Supervision of: Dr. Sofia Reilly D.O. First contact with patient: 11:06 Stated Complaint: CHEST PAIN History of Present Illness The patient is a 66 year old male who presents to the Emergency Room with complaints of persistent chest pain, bilateral arm pain, and headache that started 4 weeks ago. The patient reports he has had these symptoms since he was released from [facility] 4 weeks ago. The patient describes his chest pain as "burning." He notes the chest pain radiates to both arms and his upper back. He notes the chest pain causes him to have shortness of breath. He describes his headache as an "ache and pressure." The patient reports he was put on Sotalol 4 weeks ago and his symptoms started soon after. He states his pain this morning was worse than usual. He notes he took Percocet this morning for his pain with no relief. He reports his head went numb after taking the medication. He states he normally does not take the pain medication in the morning but the pain was too severe. The patient notes he intermittently has numbness in his legs and chills. He denies fevers, urinary symptoms, cough, leg swelling, or change in bowel movements. The patient had a pacemaker and defibrillator put in in 2009 for A-fib and V-tach. He reports he is on Coumadin and his last levels were between 2 and 3. The patient states he has not done any unusual activity that could have caused his symptoms to be worse today. Source of History: patient Onset: 4 weeks ago Position: head, chest, arm (bilateral) Quality: ache, pressure, burning Timing: other (persistent) Associated Symptoms: + chills, + SOB, + numbness, No fevers, No cough, No urinary symptoms Review of Systems See HPI for pertinent positives & negatives. A total of 10 systems reviewed and were otherwise negative. Past Medical & Surgical Medical Problems: (1) AC MYOCARD INFARCT INFRPSTERIOR WALL,INIT EPIS CAR (2) ANTICOAGULANTS,LT,CURRENT USE (3) ANXIETY STATE NOS (4) AORTOCORONARY BYPASS (5) ARTERIAL EMBOLISM NOS (6) Atherosclerotic heart disease (7) ATRIAL FIBRILLATION (8) BELOW KNEE AMPUTATION STATUS (9) CARDIAC PACEMAKER IN SITU (10) CHF,CARDIOMYOPATHY EF 12-20% (11) Chronic kidney disease (12) CORONARY ATHEROSCLEROSIS OF [place] CORONARY VESSEL (13) Paroxysmal ventricular tachycardia (14) Recurrent ventricular tachycardia (15) SYNCOPE, V.TACH.,V FIB.,CAD (16) SYNCOPE,CAD,?CHOLECYSTITIS, Family History Heart disease Social History Smoking Status: Former Smoker Alcohol Use: none Drug Use: none Marital Status: Housing Status: lives with family Occupation Status: retired Current/Historical Medications Scheduled Aspirin (Aspirin Ec), 81 MG PO DAILY Atorvastatin (Lipitor), 20 MG PO DAILY Bumetanide (Bumex), 1 TAB PO DAILY Citalopram Hydrobromide (Celexa), 20 MG PO DAILY Gabapentin (Neurontin), 600 MG PO BID UD Lisinopril (Lisinopril), 2.5 MG PO DAILY Metoprolol Succinate (Toprol Xl), 50 MG PO DAILY Nitroglycerin (Nitrostat), 0.4 MG UT PRN Pantoprazole Sodium (Protonix), 1 TAB PO DAILY Potassium Chloride (Potassium Chloride Er), 20 MEQ PO DAILY Sotalol HCl (Sotalol HCl), 1 TAB PO BID Warfarin Sodium (Warfarin Sodium), 1 TAB PO DAILY Scheduled PRN Lorazepam (Ativan), 0.5 MG PO TID PRN for Anxiety Oxycodone/Acetaminophen 5MG/325MG (Percocet 5MG/325MG), 1 TABLET PO Q6H PRN for Pain Zolpidem Tartrate (Zolpidem Tartrate), 1 TAB PO HS PRN for Sleep Allergies Coded Allergies: Heparin (Verified Allergy, Severe, CAUSES HIT, 12/09/17) Silver (Verified Adverse Reaction, Unknown, TOPICAL - BURNING, PAIN, ) TOPICAL USE Physical Exam Vital Signs Date Time Temp Pulse Resp B/P (MAP) Pulse Ox O2 Delivery O2 Flow Rate FiO2 12/09/17 14:29 66 16 95/62 95 Room Air 12/09/17 12:37 60 16 110/69 95 Room Air 12/09/17 11:14 69 12/09/17 11:10 36.7 69 16 108/66 96 Room Air 12/09/17 11:10 96 Room Air 12/09/17 11:10 96 Room Air Physical Exam GENERAL: alert, well appearing, well nourished, no distress, non-toxic EYE EXAM: normal conjunctiva, PERRL and EOM's grossly intact OROPHARYNX: no exudate, no erythema, lips, buccal mucosa, and tongue normal and mucous membranes are moist NECK: supple, no nuchal rigidity, no adenopathy, non-tender LUNGS: Clear to auscultation. Normal chest wall mechanics HEART: no murmurs, S1 normal and S2 normal CHEST: Well healed vertical midline incision over sternum, left anterior superior chest wall incision consistent with pacer, no evidence of swelling or overlying erythema, no reproducible chest wall tenderness. ABDOMEN: abdomen soft, non-tender, normo-active bowel sounds, no masses, no rebound or guarding. Mild epigastric pain. BACK: Back is symmetrical on inspection and there is no deformity, no midline tenderness, no CVA tenderness. SKIN: no rashes and no bruising UPPER EXTREMITIES: upper extremities are grossly normal. LOWER EXTREMITIES: No pitting edema. Left AKA. NEURO EXAM: Normal sensorium, cranial nerves II-XII grossly intact, normal speech, no gross weakness of arms, no gross weakness of legs. Medical Decision & Procedures ER Provider Diagnostic Interpretation: Radiology results have been interpreted by the radiologist and reviewed by me. SINGLE VIEW CHEST CLINICAL HISTORY: Atypical chest pain. FINDINGS: An AP, portable, upright chest radiograph is compared to study dated 10/28/2017. The examination is degraded by portable technique and patient rotation. The patient is status post midline sternotomy. A 3-lead cardiac AICD is unchanged in position and largely obscures the left upper chest. The heart is enlarged and there is atherosclerotic calcification of the thoracic aorta. The pulmonary vasculature is noncongested. No airspace consolidation or lower pleural effusion is identified. Left basilar atelectasis is observed. The skeletal structures are osteopenic. Degenerative change is seen throughout the thoracic spine. IMPRESSION: 1. Cardiomegaly and AICD without radiographic evidence of congestive failure. 2. No airspace consolidation or large pleural effusion is identified. Electronically signed by: Rohit Wilkinson M.D. 12/09/2017 12:12 PM Dictated Date/Time: 12/09/2017 12:10 PM Laboratory Results Test 12/09/17 11:36 Immature Granulocyte % (Auto) 0.2 % White Blood Count 5.87 K/uL (4.8-10.8) Red Blood Count 4.95 M/uL (4.7-6.1) Hemoglobin 14.8 g/dL (14.0-18.0) Hematocrit 45.2 % (42-52) Mean Corpuscular Volume 91.3 fL (80-100) Mean Corpuscular Hemoglobin 29.9 pg (25-34) Mean Corpuscular Hemoglobin Concent 32.7 g/dl (32-36) Platelet Count 113 K/uL (130-400) Mean Platelet Volume 11.0 fL (7.4-10.4) Neutrophils (%) (Auto) 76.3 % Lymphocytes (%) (Auto) 14.8 % Monocytes (%) (Auto) 6.8 % Eosinophils (%) (Auto) 1.7 % Basophils (%) (Auto) 0.2 % Neutrophils # (Auto) 4.48 K/uL (1.4-6.5) Lymphocytes # (Auto) 0.87 K/uL (1.2-3.4) Monocytes # (Auto) 0.40 K/uL (0.11-0.59) Eosinophils # (Auto) 0.10 K/uL (0-0.5) Basophils # (Auto) 0.01 K/uL (0-0.2) Immature Granulocyte # (Auto) 0.01 K/uL (0.00-0.02) Magnesium Level 2.5 mg/dl (1.8-2.4) Pro-B-Type Natriuretic Peptide 896 pg/ml (0-900) Globulin 3.1 gm/dl (2.5-4.0) Albumin/Globulin Ratio 1.2 (0.9-2) Lipase 99 U/L (73-393) Laboratory results per my review. Medications Administered Medications (Trade) Dose Ordered Sig/Maya Route Start Time Stop Time Status Last Admin Dose Admin Al Hydroxide/Mg Hydroxide (Maalox Susp) 15 ml NOW STAT PO 12/09/17 11:24 12/09/17 11:25 DC 12/09/17 11:24 15 ML Nitroglycerin (Nitroglycerin 2% Oint) 1 inch NOW ONCE EXT 12/09/17 13:00 12/09/17 13:01 DC 12/09/17 13:00 1 INCH Al Hydrox/Mg Hydrox/Simethicone (Maalox Max Susp) 15 ml Q4H PRN PO 12/09/17 15:00 01/08/18 14:59 12/09/17 19:11 15 ML Nitroglycerin (Nitrostat Tab) 0.4 mg UD PRN SL 12/09/17 15:00 01/08/18 14:59 12/09/17 19:33 0.4 MG ECG Per My Interpretation Indication: chest pain Rate (beats per minute): 66 Rhythm: other (paced rhythm) Findings: no acute ischemic change, other (prolonged intervals consistent with pacing) ED Course 1108: The patient was evaluated in room B6. A complete history and physical exam was performed. 1124: Ordered Maalox Susp 15 ml PO. 1255: Ordered Nitroglycerin 18 inch EXT. 1300: Ordered Nitroglycerin 1 inch EXT. 1305: I discussed the patient's case with Dr. Sanders, [facility] Cardiology. He recommends the patient stay for hospitalization and then follow up with his office. 1325: [employer] customer relations representative is coming to interrogate his device. 1335: I discussed the patient's case with Dr. Peguero, [facility] Hospitalist. He agrees to evaluate the patient for further management. 1355: I updated the patient on his results and treatment plan. Medical Decision Differential diagnosis: Etiologies such as cardiac ischemia, aortic dissection, pulmonary embolism, pneumonia, pneumothorax, musculoskeletal, infections, pericarditis, myocarditis , esophageal rupture, gastrointestinal, as well as others were entertained. Patient with extensive and complicated cardiac history here now presenting with worsening chest pain compared to his baseline over the last month. No evidence of overlying cellulitis or pocket infection where his pacemaker was placed 1 month ago. No evidence of acute pulmonary process. I do not suspect PE given therapeutic INR. No evidence of acute pulmonary edema. Case discussed with cardiology who recommends admission for additional evaluation. We attempted to use our [employer] box here to interrogate pacemaker and were unsuccessful, I did discuss with the [employer] rep and he will be in to evaluate. First troponin negative, and EKG not suggestive of active ACS however patient with known coronary artery disease. Patient aware of all results. Mild improvement in patient's discomfort with GI meds, however resolution achieved with Nitropaste. Patient aware of plan and discussion with cardiology. Case discussed with hospitalist for additional evaluation and management. I do not suspect occult infectious etiology. I do not suspect acute complication related to recent device placement. Medication Reconcilliation Current Medication List: was personally reviewed by me Blood Pressure Screening Patient's blood pressure: Normal blood pressure Consults Time Called: 1330 Consulting Physician: Dr. Peguero [facility] Hospitalist Returned Call: [phone] I discussed the patient's case with Dr. Peguero [facility] Hospitalist. He agrees to evaluate the patient for further management. Impression Primary Impression: Chest pain Additional Impressions: Dyspnea Headache Scribe Attestation The scribe's documentation has been prepared under my direction and personally reviewed by me in its entirety. I confirm that the note above accurately reflects all work, treatment, procedures, and medical decision making performed by me. Departure Information Dispostion Being Evaluated By Hospitalist Referrals Will Craig M.D. (PCP) Problem Qualifiers Primary Impression: Chest pain Chest pain type: unspecified Qualified Codes: R07.9 - Chest pain, unspecified Additional Impressions: Dyspnea Dyspnea type: shortness of breath Qualified Codes: R06.02 - Shortness of breath Headache Headache type: unspecified Headache chronicity pattern: chronic headache Intractability: not intractable Qualified Codes: R51 - Headache
[2017-12-09 11:48] LABS: BASO % 0.2 %; BASO ABS # 0.01 K/uL (0-0.2); EOS % 1.7 %; HEMATOCRIT 45.2 % (42-52); HEMOGLOBIN 14.8 g/dL (14.0-18.0); IG# 0.01 K/uL (0.00-0.02); LYMPH % 14.8 %; LYMPH ABS # 0.87 K/uL (1.2-3.4); MEAN CELL VOLUME 91.3 fL (80-100); MEAN CORPUSCULAR HEMOGLOBIN 29.9 pg (25-34); MEAN CORPUSCULAR HGB CONC 32.7 g/dl (32-36); MONO % 6.8 %; NEUT % 76.3 %; NEUT ABS # 4.48 K/uL (1.4-6.5); PLATELET COUNT 113 K/uL (130-400); RED CELL DISTRIBUTION WIDTH CV 13.1 % (11.5-14.5); RED CELL DISTRIBUTION WIDTH SD 43.5 fL (36.4-46.3); WHITE BLOOD COUNT 5.87 K/uL (4.8-10.8)
[2017-12-09] MEDS ORDERED: BTP80 PO (11:49)
[2017-12-09] MEDS ORDERED: WARF2TAB8 PO (11:49)
[2017-12-09] MEDS ORDERED: OXYC-57 PO (11:49)
[2017-12-09 11:59] LABS: INR 3.1 (0.9-1.1)
[2017-12-09 12:10] LABS: ALBUMIN 3.9 gm/dl (3.4-5.0); ALKALINE PHOSPHATASE 98 U/L (45-117); ALT/SGPT 27 U/L (12-78); AST/SGOT 18 U/L (15-37); BLOOD UREA NITROGEN 17 mg/dl (7-18); CALCIUM 8.7 mg/dl (8.5-10.1); CARBON DIOXIDE 26 mmol/L (21-32); CREATININE 1.12 mg/dl (0.60-1.40); GLUCOSE 93 mg/dl (70-99); LIPASE 99 U/L (73-393); POTASSIUM 4.7 mmol/L (3.5-5.1); SODIUM 136 mmol/L (136-145)
--- NOTE | 2017-12-09 12:13 | DIAGNOSTIC IMAGING REPORT ---
SINGLE VIEW CHEST CLINICAL HISTORY: Atypical chest pain. FINDINGS: An AP, portable, upright chest radiograph is compared to study dated 10/28/2017. The examination is degraded by portable technique and patient rotation. The patient is status post midline sternotomy. A 3-lead cardiac AICD is unchanged in position and largely obscures the left upper chest. The heart is enlarged and there is atherosclerotic calcification of the thoracic aorta. The pulmonary vasculature is noncongested. No airspace consolidation or lower pleural effusion is identified. Left basilar atelectasis is observed. The skeletal structures are osteopenic. Degenerative change is seen throughout the thoracic spine. IMPRESSION: 1. Cardiomegaly and AICD without radiographic evidence of congestive failure. 2. No airspace consolidation or large pleural effusion is identified. Electronically signed by: Rohit Wilkinson M.D. 12/09/2017 12:12 PM Dictated Date/Time: 12/09/2017 12:10 PM
[2017-12-09] MEDS ORDERED: NITROGLYCERIN 2% OINTMENT 30GM TUBE EXT ONE ×2 (12:55→13:00)
[2017-12-09] MEDS ORDERED: POLYETHYLENE (MIRALAX) 17 GM PACK PO PRN (15:00)
[2017-12-09] MEDS ORDERED: MAGNESIUM HYDROXIDE SUSP 30 ML UDC PO PRN (15:00)
[2017-12-09] MEDS ORDERED: ONDANSETRON INJ 2 MG/ML 2 ML VIAL IV PRN (15:00)
[2017-12-09] MEDS ORDERED: WARF-285 PO (15:06)
[2017-12-09] MEDS ORDERED: PANT40TA PO (15:06)
[2017-12-09] MEDS ORDERED: MoRPHine SULFATE 2 MG/ML CARP IV STA (15:09)
[2017-12-09] MEDS ORDERED: MoRPHine SULFATE 2 MG/ML CARP ONE (15:11)
--- NOTE | 2017-12-09 15:36 | History and Physical ---
History & Physical Date & Time of Service: Dec 09, 2017 at 15:09 Chief Complaint: Chest Pain Primary Care Physician: Will Craig M.D. History of Present Illness Source: patient, spouse, clinic records, hospital records This is a 66 y/o male with a history of VT x 2 (2002, 2009), CAD s/p stent (2002 ) and 4v CABG (2009), HLD, a-flutter, h/o v-tach s/p ablation, pacemaker/ defibrillator, chronic systolic CHF, anxiety, depression, phantom pain s/p left BKA, RHIANNA, and chronic reflux esophagitis who presented to the ED on 12/09 with worsening chest pain. The patient was recently admitted to [facility] one month ago for v-tach. There he had an ablation and his previous ICD was upgraded to a biventricular device. He was discharged on sotalol at that time. Since then, he has had intermittent chest pain which has been getting progressively more intense and frequent, particularly in the last week. He states today the pain is the worst it has ever been at a 8/10 severity. He describes the pain as a burning and pressure across his chest, down both arms, and into his back between his shoulder blades. He has associated tingling in his arms, shortness of breath, and at times sweats. This pain occurs at rest and he denies any precipitating factors. He currently states his pain is down to a 1/10. He also complains of a lower abdominal pain that is burning but denies nausea and vomiting. He is still mildly SOB at this time. He feels generally weak and fatigued. The patient denies fevers, chills, palpitations, claudication, cough, wheezing, nausea, vomiting, dysuria, hematuria, urinary retention, paralysis, weakness. Past Medical/Surgical History Medical Problems: (1) AC MYOCARD INFARCT INFRPSTERIOR WALL,INIT EPIS CAR (2) Acute chest pain (3) Acute head injury (4) AICD discharge (5) angina, cad, (6) ANTICOAGULANTS,LT,CURRENT USE (7) Anticoagulated on Coumadin (8) ANXIETY STATE NOS (9) AORTOCORONARY BYPASS (10) ARTERIAL EMBOLISM NOS (11) Atherosclerotic heart disease (12) ATRIAL FIBRILLATION (13) BELOW KNEE AMPUTATION STATUS (14) CARDIAC PACEMAKER IN SITU (15) Chest pain (16) CHF,CARDIOMYOPATHY EF 12-20% (17) Chronic kidney disease (18) CORONARY ATHEROSCLEROSIS OF [place] CORONARY VESSEL (19) Epigastric pain (20) Fall (21) Hypoxia (22) Lumbar disc disease (23) Paroxysmal ventricular tachycardia (24) Recurrent ventricular tachycardia (25) Right leg injury (26) Septic shock (27) SOB (shortness of breath) (28) Syncope (29) Syncope (30) SYNCOPE, V.TACH.,V FIB.,CAD (31) SYNCOPE,CAD,?CHOLECYSTITIS, (32) Unstable angina (33) Ventricular fibrillation (34) Ventricular tachycardia (35) Ventricular tachycardia VT (2002, 2009) CAD s/p stent (2002) and quadruple CABG (2009) HLD A-flutter V-tach s/p ablation one month ago Chronic systolic CHF Anxiety, depression Phantom pain s/p left BKA RHIANNA Chronic reflux esophagitis Pacemaker/defibrillator--originally placed 2009, then replaced a few years ago. One month ago, ICD upgraded to biventricular device Left BKA 2012 (had prior left metatarsal amputation in 2009) Family History Heart disease Social History Smoking Status: Former Smoker (quit 2009) Smokeless Tobacco Use: No Alcohol Use: none Drug Use: none Marital Status: Housing status: lives with family ( and granddaughter) Occupational Status: retired Immunizations History of Influenza Vaccine: Yes Influenza Vaccine Date: Feb 04, 2012 History of Tetanus Vaccine?: Yes Tetanus Immunization Date: Jan 19, 2006 History of Pneumococcal: Yes Pneumococcal Date: Jan 19, 2007 History of Hepatitis B Vaccine: Unknown Allergies Coded Allergies: Heparin (Verified Allergy, Severe, CAUSES HIT, 12/09/17) Silver (Verified Adverse Reaction, Unknown, TOPICAL - BURNING, PAIN, ) TOPICAL USE Home Medications Scheduled Aspirin (Aspirin Ec), 81 MG PO DAILY Atorvastatin (Lipitor), 20 MG PO DAILY Bumetanide (Bumex), 1 TAB PO DAILY Citalopram Hydrobromide (Celexa), 20 MG PO DAILY Gabapentin (Neurontin), 600 MG PO BID UD Lisinopril (Lisinopril), 2.5 MG PO DAILY Metoprolol Succinate (Toprol Xl), 50 MG PO DAILY Nitroglycerin (Nitrostat), 0.4 MG UT PRN Pantoprazole Sodium (Protonix), 1 TAB PO DAILY Potassium Chloride (Potassium Chloride Er), 20 MEQ PO DAILY Sotalol HCl (Sotalol HCl), 1 TAB PO BID Warfarin Sodium (Warfarin Sodium), 1 TAB PO DAILY Scheduled PRN Lorazepam (Ativan), 0.5 MG PO TID PRN for Anxiety Oxycodone/Acetaminophen 5MG/325MG (Percocet 5MG/325MG), 1 TABLET PO Q6H PRN for Pain Zolpidem Tartrate (Zolpidem Tartrate), 1 TAB PO HS PRN for Sleep Review of Systems Constitutional: +Weak, fatigued, int. sweats w/chest pain. No fever, No chills Eyes: No worsening of vision, No eye pain, No diplopia ENT: No hearing loss, No nasal symptoms, No trouble swallowing Respiratory: +SOB. No cough, No wheezing Cardiovascular: +Chest pain radiating to back and b/l arms. No claudication, No palpitations Abdomen: +Lower abdominal pain. No nausea, No vomiting Musculoskeletal: No joint pain, No muscle pain, No swelling Genitourinary - Male: No dysuria, No urinary retention, No hematuria Neurologic: +Tingling in arms w/the pain. No paralysis, No weakness Integumentary: No rash, No itch, No color change Physical Exam Vital Signs Date Time Temp Pulse Resp B/P (MAP) Pulse Ox O2 Delivery O2 Flow Rate FiO2 12/09/17 14:29 66 16 95/62 95 Room Air 12/09/17 12:37 60 16 110/69 95 Room Air 12/09/17 11:14 69 12/09/17 11:10 36.7 69 16 108/66 96 Room Air 12/09/17 11:10 96 Room Air 12/09/17 11:10 96 Room Air General appearance: +Obese. Well-developed, well-nourished, no apparent distress Head: Normocephalic, atraumatic Eyes: Normal inspection, PERRL, EOMI ENT: Normal ENT inspection, hearing grossly normal, pharynx normal Neck: Supple, no JVD, trachea midline Respiratory/Chest: +Currently on 2L NC. Lungs clear to auscultation, normal breath sounds, no respiratory distress Cardiovascular: Regular rate & rhythm, no gallop, no murmur Abdomen/GI: Normal bowel sounds, non-tender, soft Extremities/Musculoskeletal: +Left BKA. No calf tenderness, no pedal edema Neurological/Psych: Alert, normal mood/affect, oriented x 3 Skin: Normal color, warm/dry, no rash Diagnostics Laboratory Results Results Past 24 Hours Test 12/09/17 11:36 Range/Units White Blood Count 5.87 4.8-10.8 K/uL Red Blood Count 4.95 4.7-6.1 M/uL Hemoglobin 14.8 14.0-18.0 g/dL Hematocrit 45.2 42-52 % Mean Corpuscular Volume 91.3 80-100 fL Mean Corpuscular Hemoglobin 29.9 25-34 pg Mean Corpuscular Hemoglobin Concent 32.7 32-36 g/dl Platelet Count 113 130-400 K/uL Mean Platelet Volume 11.0 7.4-10.4 fL Neutrophils (%) (Auto) 76.3 % Lymphocytes (%) (Auto) 14.8 % Monocytes (%) (Auto) 6.8 % Eosinophils (%) (Auto) 1.7 % Basophils (%) (Auto) 0.2 % Neutrophils # (Auto) 4.48 1.4-6.5 K/uL Lymphocytes # (Auto) 0.87 1.2-3.4 K/uL Monocytes # (Auto) 0.40 0.11-0.59 K/uL Eosinophils # (Auto) 0.10 0-0.5 K/uL Basophils # (Auto) 0.01 0-0.2 K/uL RDW Standard Deviation 43.5 36.4-46.3 fL RDW Coefficient of Variation 13.1 11.5-14.5 % Immature Granulocyte % (Auto) 0.2 % Immature Granulocyte # (Auto) 0.01 0.00-0.02 K/uL Prothrombin Time 31.7 9.0-12.0 SECONDS Prothromb Time International Ratio 3.1 0.9-1.1 Sodium Level 136 136-145 mmol/L Potassium Level 4.7 3.5-5.1 mmol/L Chloride Level 104 98-107 mmol/L Carbon Dioxide Level 26 21-32 mmol/L Anion Gap 6.0 3-11 mmol/L Blood Urea Nitrogen 17 7-18 mg/dl Creatinine 1.12 0.60-1.40 mg/dl Est Creatinine Clear Calc Drug Dose 72.4 ml/min Estimated GFR () 77.8 Estimated GFR (Non- 67.1 BUN/Creatinine Ratio 15.4 10-20 Random Glucose 93 70-99 mg/dl Calcium Level 8.7 8.5-10.1 mg/dl Magnesium Level 2.5 1.8-2.4 mg/dl Total Bilirubin 1.8 0.2-1 mg/dl Aspartate Amino Transf (AST/SGOT) 18 15-37 U/L Alanine Aminotransferase (ALT/SGPT) 27 12-78 U/L Alkaline Phosphatase 98 45-117 U/L Troponin I < 0.015 0-0.045 ng/ml Pro-B-Type Natriuretic Peptide 896 0-900 pg/ml Total Protein 7.0 6.4-8.2 gm/dl Albumin 3.9 3.4-5.0 gm/dl Globulin 3.1 2.5-4.0 gm/dl Albumin/Globulin Ratio 1.2 0.9-2 Lipase 99 73-393 U/L Diagnostic Radiology Reviewed the following studies and agree with interpretation as follows: SINGLE VIEW CHEST CLINICAL HISTORY: Atypical chest pain. FINDINGS: An AP, portable, upright chest radiograph is compared to study dated 10/28/2017. The examination is degraded by portable technique and patient rotation. The patient is status post midline sternotomy. A 3-lead cardiac AICD is unchanged in position and largely obscures the left upper chest. The heart is enlarged and there is atherosclerotic calcification of the thoracic aorta. The pulmonary vasculature is noncongested. No airspace consolidation or lower pleural effusion is identified. Left basilar atelectasis is observed. The skeletal structures are osteopenic. Degenerative change is seen throughout the thoracic spine. IMPRESSION: 1. Cardiomegaly and AICD without radiographic evidence of congestive failure. 2. No airspace consolidation or large pleural effusion is identified. EKG Reviewed EKG and agree with interpretation as follows: 66 bpm, AV dual paced rhythm Impression Assessment and Plan 66 y/o male with a history of VT x 2 (2002, 2009), CAD s/p stent (2002) and 4v CABG (2009), HLD, a-flutter, h/o v-tach s/p ablation, pacemaker/defibrillator, chronic systolic CHF, anxiety, depression, phantom pain s/p left BKA, RHIANNA, and chronic reflux esophagitis who presented to the ED on 12/09 with worsening chest pain. Pt afebrile, VSS on arrival. CXR no acute disease. EKG no acute ischemic changes. Troponin negative. Chest pain, ACS r/o -Admit to telemetry for observation -Trend cardiac enzymes q8h x 3, first trop negative -Check resting echo now. Last echo Jan 2017 shows EF 15-20%, inferior and septal wall akinesis. Grade II diastolic dysfunction. Severely dilated left ventricle. Mild mitral regurgitation and tricuspid regurg. Mild to moderate pulmonary HTN, 45-50 mmHg. -Hold off on further nitro paste for now, pt developed hypotension after. BP now improved to 117/69 -Consult cardiology, appreciate recs -Pacemaker interrogation pending -Fasting lipid panel -NPO after midnight -EKG q am and prn chest pain CAD, h/o VT, HLD -Continue ASA, Toprol XL 50 mg PO qd, lisinopril 2.5 mg PO qd, Lipitor 20 mg PO qd A-flutter, h/o v-tach s/p ablation, pacemaker/defibrillator -Pacemaker interrogation pending -Continue Toprol, sotalol 80 mg PO BID, warfarin 3 mg PO qd -INR 3.1 on admission, continue to monitor Chronic systolic CHF--stable, no acute exacerbation -Continue beta shaun, RUFINO, Bumex 1 mg PO qd Anxiety, depression, phantom pain -Continue Celexa 20 mg PO qd, Ativan 0.5 mg PO TID prn anxiety, gabapentin 600 mg PO BID RHIANNA -CPAP Chronic reflux esophagitis--pt complained of burning abdominal pain, improved after Maalox. Pt previously on Protonix but has not taken since d/c'd from [facility] one month ago -Restart Protonix 40 mg PO qd -Maalox prn DVT prophylaxis -Warfarin therapeutic -LUCIA [place] and SCDs Code Status -Level V, DO NOT RESUSCITATE Resuscitation Status VTE Prophylaxis Will order VTE Prophylaxis: Yes
[2017-12-09] MEDS: NITROGLYCERIN 0.4 MG SL PER TAB CHARGE SL PRN ×3 (16:16→19:33)
[2017-12-09] MEDS: OXYCODONE/ACETAMINOPHEN 5-325 TAB PO PRN ×2 (16:23→23:12)
[2017-12-09 16:55] VITALS: BP 116/75; PULSE 60; TEMP 36.7; O2SAT 95; Ht 175.3 cm; Wt 90.2 kg
[2017-12-09] MEDS ORDERED: OPTIRAY 320 IV PRN (17:30)
[2017-12-09] MEDS ORDERED: WARFARIN SOD 3 MG TAB PO SCH (18:00)
--- NOTE | 2017-12-09 18:13 | DIAGNOSTIC IMAGING REPORT ---
CT ANGIOGRAM OF THE CHEST COMBO CLINICAL HISTORY: Atypical chest pain. COMPARISON STUDY: Chest x-ray dated 12/09/2017. Chest CT dated 12/28/2015. Abdominal CT dated 12/10/2015. TECHNIQUE: Before and following the IV administration of 116 cc of Optiray 320, CT angiogram of the chest was performed from the thoracic inlet to the upper abdomen utilizing the dissection protocol. Images are reviewed in the axial, sagittal, and coronal planes. 3-D MIPS images are created and assessed. IV contrast was administered without complication. A dose lowering technique was utilized adhering to the principles of ALARA. CT DOSE: 1138.09 mGy.cm FINDINGS: Thyroid: Imaged portions of the thyroid gland are normal in size and attenuation. Thoracic aorta: No intramural hematoma is seen on the unenhanced series. There is mild atherosclerotic calcification of the thoracic aorta, which is normal in caliber and demonstrates standard 3-vessel arch anatomy. No dissection is seen. The arch vessels are widely patent. Pulmonary vasculature: The pulmonary trunk is normal in caliber. There is no evidence of pulmonary embolus within the main, lobar, or segmental pulmonary arteries. Heart: A cardiac AICD is present in the left chest wall. The patient is status post midline sternotomy. The heart is enlarged and without pericardial effusion. Lungs and pleural spaces: Emphysematous change is identified. No airspace consolidation or pleural effusion is seen. The trachea and central airways are clear. Mild diffuse peribronchial thickening suggests reactive airway disease. There are foci of bibasilar scarring/atelectasis. A 10 mm irregular pulmonary nodule is seen at the right lung base on image #232 of the unenhanced series. Scattered lung K calcified granulomas are observed. Mediastinum: There is no mediastinal lymphadenopathy. Alanna: Clear. Axillae: There is no axillary lymphadenopathy. Upper abdomen: The spleen is enlarged, measuring 14.8 cm in length. There is a 1.3 cm ovoid cystic lesion in the distal pancreatic body seen on image #312. The appearance is typical for a sidebranch IPMN. Scattered hepatic cysts measure up to 2.3 cm. Skeletal structures: The skeletal structures are osteopenic. Degenerative change is noted throughout the thoracic spine. No lytic or blastic bony lesions are seen. IMPRESSION: 1. There is no aneurysm or dissection identified involving the thoracic aorta. 2. Cardiomegaly and AICD. 3. There is no evidence of pulmonary embolus in the main, lobar, or segmental pulmonary arteries. 4. Emphysema. 5. There is no airspace consolidation or pleural effusion. Mild diffuse peribronchial thickening suggests reactive disease. Clinical correlation will be required. 6. There is a 10 mm pulmonary nodule at the right lung base. This was also seen on the [address] An additional 6 month follow-up examination is recommended for reassessment. 7. A 1.3 cm ovoid cystic lesion in the distal pancreatic body is typical in appearance for a sidebranch IPMN. 8. Splenomegaly. 9. Additional findings as above. Electronically signed by: Rohit Wilkinson M.D. 12/09/2017 6:11 PM Dictated Date/Time: 12/09/2017 6:00 PM
[2017-12-09] MEDS: ALUMINUM/MAGNESIUM/SIMETH (MAALOX MAX) 30 ML UDC PO PRN (19:11)
[2017-12-09 19:47] VITALS: BP 97/55; PULSE 60; TEMP 36.5; O2SAT 93
[2017-12-09] MEDS: SOTALOL HCL 80 MG TAB PO SCH (20:54)
[2017-12-09] MEDS: GABAPENTIN 600 MG TAB PO SCH (20:54)
[2017-12-09] MEDS ORDERED: IV FLUIDS COMPLETED PRN (21:15)
[2017-12-09] MEDS: ZOLPIDEM TARTRATE 10 MG TAB PO PRN (22:11)
[2017-12-09 23:40] VITALS: BP 104/54; PULSE 62; TEMP 36.7; O2SAT 95
[2017-12-10] VITALS (7 sets, daily range): BP systolic 94–114; BP diastolic 58–66; PULSE 60–63; TEMP 36.4–36.8; O2SAT 92–97
[2017-12-10 03:39] LABS: HEMATOCRIT 41.6 % (42-52); HEMOGLOBIN 13.8 g/dL (14.0-18.0); MEAN CELL VOLUME 91.2 fL (80-100); MEAN CORPUSCULAR HEMOGLOBIN 30.3 pg (25-34); MEAN CORPUSCULAR HGB CONC 33.2 g/dl (32-36); RED CELL DISTRIBUTION WIDTH CV 13.2 % (11.5-14.5); RED CELL DISTRIBUTION WIDTH SD 43.8 fL (36.4-46.3); WHITE BLOOD COUNT 4.05 K/uL (4.8-10.8)
[2017-12-10 03:48] LABS: INR 3.2 (0.9-1.1)
[2017-12-10 04:01] LABS: ALBUMIN 3.4 gm/dl (3.4-5.0); ALKALINE PHOSPHATASE 93 U/L (45-117); ALT/SGPT 24 U/L (12-78); AST/SGOT 14 U/L (15-37); BLOOD UREA NITROGEN 17 mg/dl (7-18); CALCIUM 8.4 mg/dl (8.5-10.1); CARBON DIOXIDE 29 mmol/L (21-32); CHOLESTEROL 110 mg/dl (0-200); CKMB 1.4 ng/ml (0.5-3.6); CREATININE 1.19 mg/dl (0.60-1.40); GLUCOSE 94 mg/dl (70-99); LDL CHOLESTEROL CALCULATED 39 mg/dl; POTASSIUM 4.4 mmol/L (3.5-5.1); SODIUM 137 mmol/L (136-145); TOTAL PROTEIN 6.4 gm/dl (6.4-8.2)
[2017-12-10 04:04] LABS: MEAN PLATELET VOLUME 10.9 fL (7.4-10.4); PLATELET COUNT 99 K/uL (130-400)
[2017-12-10] MEDS: GABAPENTIN 600 MG TAB PO SCH ×2 (07:49→20:10)
[2017-12-10] MEDS: PANTOprazole SOD 40 MG TAB PO SCH (07:50)
[2017-12-10] MEDS: ASPIRIN 81 MG ECTAB PO SCH (07:50)
[2017-12-10] MEDS: SOTALOL HCL 80 MG TAB PO SCH (07:50)
[2017-12-10] MEDS: LISINOPRIL 2.5 MG TAB PO SCH (07:50)
[2017-12-10] MEDS: ATORVASTATIN 20 MG TAB PO SCH (07:51)
[2017-12-10] MEDS: POTASSIUM CHLORIDE 20 MEQ TABCR PO SCH (07:52)
[2017-12-10] MEDS: CITALOPRAM 20 MG TAB PO SCH (07:52)
[2017-12-10] MEDS: METOPROLOL SUCC 50MG EXT REL TAB PO SCH (07:52)
--- NOTE | 2017-12-10 12:06 | Hospitalist Progress Note ---
Hospitalist Progress Note Date of Service Dec 10, 2017. Subjective Pt evaluation today including: conversation w/ patient, physical exam, chart review, lab review, conversation w/ workday financials consultant (spoke w/Dr. Sanders), review of inpatient medication list Pain: None PO Intake: NPO at my exam Voiding: no voiding problems Patient reports feeling well this morning. He currently denies any chest pain as well as any pain going down his arms or through to his back. He does complain of a "pins and needles" feeling across his lower chest/upper abdomen but denies any of the burning or sharp discomfort he had yesterday. He denies any shortness of breath and is back on room air. He is NPO at the time of my exam. The patient denies fevers, chills, sweats, chest pain, palpitations, claudication, cough, wheezing, shortness of breath, nausea, vomiting, abdominal pain, dysuria, hematuria, urinary retention, paralysis, weakness. Additional Comments: See HPI for pertinent positives and negatives. All other systems reviewed and negative. Objective Vital Signs Date Time Temp Pulse Resp B/P (MAP) Pulse Ox O2 Delivery O2 Flow Rate FiO2 12/10/17 10:30 36.8 61 16 103/66 (78) 92 Room Air 12/10/17 08:00 95 Room Air 12/10/17 07:36 36.6 60 16 100/61 (74) 95 Room Air 12/10/17 03:27 36.4 60 16 98/60 (73) 94 Room Air 12/09/17 23:40 36.7 62 18 104/54 (71) 95 Room Air 12/09/17 20:00 Room Air 12/09/17 19:47 36.5 60 16 97/55 (69) 93 Room Air 12/09/17 16:55 36.7 60 16 116/75 95 Room Air 12/09/17 16:18 60 16 116/75 95 Room Air 12/09/17 16:15 61 16 143/93 98 Room Air 12/09/17 15:19 60 16 117/69 98 Room Air 12/09/17 14:29 66 16 95/62 95 Room Air 12/09/17 12:37 60 16 110/69 95 Room Air Physical Exam Notes: General appearance: Well-developed, well-nourished, no apparent distress Head: Normocephalic, atraumatic Eyes: Normal inspection, PERRL, EOMI ENT: Normal ENT inspection, hearing grossly normal, pharynx normal Neck: Supple, no JVD, trachea midline Respiratory/Chest: Lungs clear to auscultation, normal breath sounds, no respiratory distress Cardiovascular: Regular rate & rhythm, no gallop, no murmur Abdomen/GI: Normal bowel sounds, non-tender, soft Extremities/Musculoskeletal: +Left BKA. No calf tenderness, no pedal edema Neurological/Psych: Alert, normal mood/affect, oriented x 3 Skin: Normal color, warm/dry, no rash Laboratory Results Last 24 Hours Test 12/09/17 19:48 12/10/17 03:26 Total Creatine Kinase 76 U/L 76 U/L Creatine Kinase MB 1.0 ng/ml 1.4 ng/ml Creatine Kinase MB Ratio 1.3 1.8 Troponin I < 0.015 ng/ml < 0.015 ng/ml White Blood Count 4.05 K/uL Red Blood Count 4.56 M/uL Hemoglobin 13.8 g/dL Hematocrit 41.6 % Mean Corpuscular Volume 91.2 fL Mean Corpuscular Hemoglobin 30.3 pg Mean Corpuscular Hemoglobin Concent 33.2 g/dl RDW Standard Deviation 43.8 fL RDW Coefficient of Variation 13.2 % Platelet Count 99 K/uL Mean Platelet Volume 10.9 fL Platelet Estimate DECREASED Prothrombin Time 33.1 SECONDS Prothromb Time International Ratio 3.2 Sodium Level 137 mmol/L Potassium Level 4.4 mmol/L Chloride Level 105 mmol/L Carbon Dioxide Level 29 mmol/L Anion Gap 3.0 mmol/L Blood Urea Nitrogen 17 mg/dl Creatinine 1.19 mg/dl Est Creatinine Clear Calc Drug Dose 66.0 ml/min Estimated GFR () 72.3 Estimated GFR (Non- 62.4 BUN/Creatinine Ratio 14.0 Random Glucose 94 mg/dl Calcium Level 8.4 mg/dl Total Bilirubin 1.3 mg/dl Direct Bilirubin 0.3 mg/dl Aspartate Amino Transf (AST/SGOT) 14 U/L Alanine Aminotransferase (ALT/SGPT) 24 U/L Alkaline Phosphatase 93 U/L Total Protein 6.4 gm/dl Albumin 3.4 gm/dl Triglycerides Level 210 mg/dl Cholesterol Level 110 mg/dl HDL Cholesterol 29 mg/dl LDL Cholesterol, Calculated 39 mg/dl VLDL Cholesterol, Calculated 42 mg/dl Cholesterol/HDL Ratio 3.8 Diagnostic Results Reviewed the following studies and agree with interpretation as follows: CT ANGIOGRAM OF THE CHEST COMBO CLINICAL HISTORY: Atypical chest pain. COMPARISON STUDY: Chest x-ray dated 12/09/2017. Chest CT dated 12/28/2015. Abdominal CT dated 12/10/2015. TECHNIQUE: Before and following the IV administration of 116 cc of Optiray 320, CT angiogram of the chest was performed from the thoracic inlet to the upper abdomen utilizing the dissection protocol. Images are reviewed in the axial, sagittal, and coronal planes. 3-D MIPS images are created and assessed. IV contrast was administered without complication. A dose lowering technique was utilized adhering to the principles of ALARA. CT DOSE: 1138.09 mGy.cm FINDINGS: Thyroid: Imaged portions of the thyroid gland are normal in size and attenuation. Thoracic aorta: No intramural hematoma is seen on the unenhanced series. There is mild atherosclerotic calcification of the thoracic aorta, which is normal in caliber and demonstrates standard 3-vessel arch anatomy. No dissection is seen. The arch vessels are widely patent. Pulmonary vasculature: The pulmonary trunk is normal in caliber. There is no evidence of pulmonary embolus within the main, lobar, or segmental pulmonary arteries. Heart: A cardiac AICD is present in the left chest wall. The patient is status post midline sternotomy. The heart is enlarged and without pericardial effusion. Lungs and pleural spaces: Emphysematous change is identified. No airspace consolidation or pleural effusion is seen. The trachea and central airways are clear. Mild diffuse peribronchial thickening suggests reactive airway disease. There are foci of bibasilar scarring/atelectasis. A 10 mm irregular pulmonary nodule is seen at the right lung base on image #232 of the unenhanced series. Scattered lung K calcified granulomas are observed. Mediastinum: There is no mediastinal lymphadenopathy. Alanna: Clear. Axillae: There is no axillary lymphadenopathy. Upper abdomen: The spleen is enlarged, measuring 14.8 cm in length. There is a 1.3 cm ovoid cystic lesion in the distal pancreatic body seen on image #312. The appearance is typical for a sidebranch IPMN. Scattered hepatic cysts measure up to 2.3 cm. Skeletal structures: The skeletal structures are osteopenic. Degenerative change is noted throughout the thoracic spine. No lytic or blastic bony lesions are seen. IMPRESSION: 1. There is no aneurysm or dissection identified involving the thoracic aorta. 2. Cardiomegaly and AICD. 3. There is no evidence of pulmonary embolus in the main, lobar, or segmental pulmonary arteries. 4. Emphysema. 5. There is no airspace consolidation or pleural effusion. Mild diffuse peribronchial thickening suggests reactive disease. Clinical correlation will be required. 6. There is a 10 mm pulmonary nodule at the right lung base. This was also seen on the [address] An additional 6 month follow-up examination is recommended for reassessment. 7. A 1.3 cm ovoid cystic lesion in the distal pancreatic body is typical in appearance for a sidebranch IPMN. 8. Splenomegaly. 9. Additional findings as above. Echocardiogram: Interpretation Summary * Name: NICK GARSIA Study Date: 12/10/2017 06:30 AM BP: 98/60 mmHg * Patient Location: [facility]\\S\\[facility]\\S\\1 HR: 60 * : 1950 (M/d/yyyy) Gender: Male Height: 69 in * Age: 66 yrs Ethnicity: [place] Weight: 212 lb * Ordering Physician: Delmi Patiño * Performed By: Kiara Clark RDCS * * Reason For Study: CHEST PAIN * BSA: 2.1 m2 * -- Conclusions -- * 1. Severely dilated LV. Normal LV wall thickness. * 2. Severe global LV dysfunction. LVEF 15-20%. * 3. Moderately dilated RV with dysfunction. * 4. Mild mitral regurgitation. * 5. Restrictive diastolic filling. * 6. Mild pulmonary hypertension. Estimated PASP 40-45 mmHg. Normal estimated CVP. * 7. Compared with prior study on 01/26/2017: No significant change Procedure Details * A complete two-dimensional transthoracic echocardiogram was performed (2D, M-mode, Doppler and color flow Doppler). Left Ventricle * The left ventricle is severely dilated. * There is normal left ventricular wall thickness. * Ejection Fraction = 15-20%. * There is severe global hypokinesis of the left ventricle. Right Ventricle * There is a pacemaker lead in the right ventricle. * The right ventricle is moderately dilated. * The right ventricular systolic function is moderately reduced. Atria * Borderline left atrial enlargement. * The right atrium is mildly dilated. Mitral Valve * The mitral valve is grossly normal. * There is no mitral valve stenosis. * There is mild mitral regurgitation. Tricuspid Valve * There is trace tricuspid regurgitation. * Right ventricular systolic pressure is elevated at 40-50mmHg. Aortic Valve * The aortic valve opens well. * The aortic valve is trileaflet. * No hemodynamically significant valvular aortic stenosis. * There is no significant aortic regurgitation. Pulmonic Valve * The pulmonary valve is inadequately visualized, but the Doppler data is adequate for interpretation. * There is no pulmonic valvular stenosis. * Trace pulmonic valvular regurgitation. Great Vessels * The aortic root and proximal ascending aorta are normal sized. Pericardium/Pleural * There is no pericardial effusion. Great Vessels * Normal inferior vena cava size and collapsability with sniff indicates a normal right atrial pressure of 3 mmHg Left Ventricular Diastolic Function * Diastolic dysfunction, Grade III (restrictive pattern), consistent with markedly increased left atrial pressure. Assessment and Plan 66 y/o male with a history of NH x 2 (2002, 2009), CAD s/p stent (2002) and 4v CABG (2009), HLD, a-flutter, h/o v-tach s/p ablation, pacemaker/defibrillator, chronic systolic CHF, anxiety, depression, phantom pain s/p left BKA, RHIANNA, and chronic reflux esophagitis who presented to the ED on 12/09 with worsening chest pain. Pt afebrile, VSS on arrival. CXR no acute disease. EKG no acute ischemic changes. Troponin negative. Chest pain, ACS r/o--stable -Admit to telemetry. Pt in paced rhythm with HR in 60s overnight, frequent runs of PVCs -Cardiac enzymes negative x3 -Echo shows EF 15-20% with severe global hypokinesis of LV. Moderately dilated RV. RV systolic function moderately reduced. Mild mitral regurgitation. Grade III diastolic dysfunction/restrictive diastolic filling. Mild pulmonary HTN. PASP 40-45 mmHg. No significant change from 01/26/17 study. -Nitro SL prn -Consult cardiology, appreciate recs: Spoke with Dr. Sanders. No stress testing at this time, pt had a normal stress test during recent admission in [place]. Will keep NPO after midnight in case of a possible cath tomorrow, will discuss with piece hand. Recommend stopping sotalol. -Pacemaker interrogation pending -Fasting lipid panel shows triglycerides 210, total cholesterol 110, non-HDL 81 -NPO after midnight for possible cath -EKG q am and prn chest pain -CTA chest negative for dissection and PE CAD, h/o NH, HLD -Continue ASA, Toprol XL 50 mg PO qd, lisinopril 2.5 mg PO qd, Lipitor 20 mg PO qd A-flutter, h/o v-tach s/p ablation, pacemaker/defibrillator--stable -Pacemaker working appropriately per cardio -Continue Toprol -D/C sotalol per cardio recs -Hold warfarin tonight in case pt has cath tomorrow -INR 3.2 on 12/10 Chronic systolic CHF--stable, no acute exacerbation -Continue metoprolol, RUFINO, Bumex 1 mg PO qd Pulmonary nodule -10 mm pulmonary nodule in right lung base, seen previously in [address] Recommend f/u in 6 months Anxiety, depression, phantom pain -Continue Celexa 20 mg PO qd, Ativan 0.5 mg PO TID prn anxiety, gabapentin 600 mg PO BID RHIANNA -CPAP Chronic reflux esophagitis--pt complained of burning abdominal pain, improved after Maalox. Pt previously on Protonix but has not taken since d/c'd from [facility] one month ago -Restart Protonix 40 mg PO qd -Maalox prn DVT prophylaxis -Warfarin therapeutic -LUCIA [place] and SCDs Code Status -Level V, DO NOT RESUSCITATE Dispo -Will monitor overnight and cardiology will re-evaluate tomorrow for possible catheterization. Changed from observation to full admit status
--- NOTE | 2017-12-10 12:22 | Cardiology Consultation ---
Cardiology Consultation Date of Consultation: Dec 10, 2017. Requesting Physician: Dr. Peguero Reason for Consultation: Chest pain Pt evaluation today including: conversation w/ patient, conversation w/ family , physical exam, lab review, review of studies, review of inpatient medication list, conversation w/ attending History of Present Illness This is a very pleasant 66-year-old gentleman who has a long history of coronary artery disease with myocardial infarction 2002, bypass surgery that year, and resultant severe ischemic cardiomyopathy. He has had sustained ventricular tachycardia with treatment at [facility] including ablation of his ventricular tachycardia on January 08, 2010 and ICD implantation on January 14, 2010.. He then presented to [facility] on January 20, 2010 in sustained ventricular tachycardia, this was below the rate cut off of the device and after adjustment the device terminated the arrhythmia however it required an ICD shock as antitachycardia pacing did not work. He was subsequently transferred to [facility] for repeat ablation but an atrial clot was identified on echocardiography and therefore ablation could not be performed at that time. He presented again in sustained ventricular tachycardia to [facility] on February 27, 2010. He was transferred again down to [facility] on February 27, 2010 and was hospitalized there until discharge on March 05, 2010. Dr. Velarde was able to perform ventricular tachycardia ablation however there was difficulty in obtaining a good result. He was then as started on Tikosyn 500 mg twice a day. He did well for about 6 months, he then had recurrent ventricular tachycardia in August 2010 and subsequently had several episodes of ventricular tachycardia in the VF zone requiring ICD shock as well as visits to the emergency room. In the past his ventricular tachycardia had been very slow, in the range of 110 beats per minute, however he had several episodes that were much faster, with the rate around 200 beats per minute and he received a shock for that. He was hospitalized in mid November 2010 for recurrent ventricular tachycardia and his Tikosyn was discontinued and replaced with mexiletine after discussion with [facility]. His atrial pacing rate was increased to 90 beats per minute. On discussion with [facility] apparently the tachycardia originated from the septum and they did not feel that they could approach it with a further ablation procedure. Their suggestion was to continue the current medical regimen. However he had further episodes, he was evaluated at the [facility] however for various reasons that procedure was never scheduled, in part because he had difficulty with a nonhealing foot infection and eventually underwent left leg amputation. Eventually his ablation was performed at [facility] on 09/26/2011. I believe they did not feel the odds were great that they were successful, and apparently he had another event the evening after the ablation, and he was discharged on mexiletine 150 mg t.i.d. He did well for several years however so the procedure must have been more successful than was initially thought. He has had rare episodes of VT treated appropriately by his device and had been maintained on Mexiletine. That was working adequately well until he was admitted 11/01/2013 with more VT requiring ICD shocks, this tachycardia however was different and faster (CL 360), did not respond to ATP but did respond to ICD shock. He lost consciousness once because he was standing during the episode. There is no clear reason for his recurrent VT, he did not infarct, meds had not changed, electrolytes were not far off, LVEF was stable and he had not had recurrent infarction and no evidence of CHF by CXR or symptoms. I think he unfortunately developed a new form of VT, which was faster. He was started on amiodarone. His original ICD reached YVONNE and was replaced on 01/08/2014 using the original leads. 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 His amiodarone was discontinued, and after about one month Multaq was started on 01/26/2016. 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 Multaq seemed to have provided adequate suppression of his ventricular arrhythmia for some time, however around November and December 2016 he developed increasing frequency of ventricular tachycardia as well as ICD shocks. We tried programming around this , however he ended up in the [facility] in late December 2016 for frequent ICD shocks. In addition, ICD interrogation had demonstrated several months of atrial fibrillation in summer, we therefore performed cardioversion using his ICD (after failure of atrial antitachycardia algorithms ) on 11/18/2016. He was hospitalized for increasing ventricular tachycardia in January of 2017. We could not control the tachycardia adequately therefore he was sent to [place] for ablation. Ablation was performed on 02/02/2017 and he was discharged several days later. He was discharged on mexiletine alone as an antiarrhythmic. He had recurrent atrial fibrillation and had cardioversion performed on May 15, 2017.He was observed on June 26, 2017 to have episodes of ventricular tachycardia at a slow heart rate, he was unaware of this therefore we left things alone. He had not received ICD shocks at that time. He then presented October 28, 2017 with recurrent frequent episodes of ventricular tachycardia, many of the ventricular tachycardia episodes were terminated by antitachycardia pacing however one did degenerate into ventricular fibrillation and required an ICD shock. Amiodarone therapy was instituted, however with his history that was not a viable long-term option. He was therefore transferred to [place] where ablation was performed, they felt successfully although the site of ablation was on the septum and this resulted in complete heart block. Since he was now pacemaker dependent he underwent upgrade of his ICD to a biventricular ICD on November 07, 2017. He was discharged on sotalol. He returned approximately 10 days following discharge from [place], he had not had any ventricular arrhythmias but we continued his sotalol. He did note however that he has a burning sensation across both shoulders which sounds anginal, it is triggered by activity, he stops what he is doing and it improves in several minutes but does not resolve for 10 or 15 minutes generally. Interestingly this was improving and he had not taken nitroglycerin for it, therefore he elected to watch. Of note he had a nuclear stress test on October 30, 2017 at [facility] which showed an extensive circumflex and right coronary artery infarct with no ischemia, ejection fraction felt to be 20%. He now returns however with worsening of this discomfort. It is very frequent prior to admission, it is sometimes a pins and needles sensation across his chest and down both arms and the back of his neck, at other times it is a more severe chest discomfort and it has lasted a substantial length of time although he is very vague about the duration. The episode that prompted his visit to the emergency room on December 09, 2017 sounds like it lasted at least an hour. Past Medical/Surgical History (1) AC MYOCARD INFARCT INFRPSTERIOR WALL,INIT EPIS CAR (2) ANTICOAGULANTS,LT,CURRENT USE (3) AORTOCORONARY BYPASS (4) BELOW KNEE AMPUTATION STATUS (5) CORONARY ATHEROSCLEROSIS OF [place] CORONARY VESSEL (6) Recurrent ventricular tachycardia (7) ATRIAL FIBRILLATION (8) Paroxysmal ventricular tachycardia Family History Heart disease Social History Smoking Status: Former Smoker History of Alcohol Use: No Review of Systems Constitutional: No fever, No weight loss, No weakness Respiratory: + cough, + shortness of breath, + dyspnea on exertion Cardiac: + see HPI, + chest pain, No palpitations Abdomen: No pain, No nausea, No vomiting, No diarrhea, No GI bleeding Male : No urinary frequency, No nocturia more than once/night, No slowing stream, No sexual dysfunction Neurologic: No paralysis, No weakness, No numbness/tingling, No balance problems Heme: No abnormal bleeding/bruising, No clotting problems Endo: No fatigue Skin: No problem reported All Other Systems: Reviewed and Negative Allergies Coded Allergies: Heparin (Verified Allergy, Severe, CAUSES HIT, 12/09/17) Silver (Verified Adverse Reaction, Unknown, TOPICAL - BURNING, PAIN, ) TOPICAL USE Medications Current Inpatient Medications Medications (Trade) Dose Ordered Sig/Maya Route Start Time Stop Time Status Last Admin Dose Admin Al Hydrox/Mg Hydrox/Simethicone (Maalox Max Susp) 15 ml Q4H PRN PO 12/09/17 15:00 01/08/18 14:59 12/09/17 19:11 15 ML Magnesium Hydroxide (Milk Of Magnesia Susp) 30 ml Q12H PRN PO 12/09/17 15:00 01/08/18 14:59 Ondansetron HCl (Zofran Inj) 4 mg Q6H PRN IV 12/09/17 15:00 01/08/18 14:59 Nitroglycerin (Nitrostat Tab) 0.4 mg UD PRN SL 12/09/17 15:00 01/08/18 14:59 12/09/17 19:33 0.4 MG Polyethylene (Miralax Powder Packet) 17 gm DAILY PRN PO 12/09/17 15:00 01/08/18 14:59 Aspirin (Ecotrin Tab) 81 mg DAILY PO 12/10/17 09:00 01/09/18 08:59 12/10/17 07:50 81 MG Atorvastatin Calcium (Lipitor Tab) 20 mg DAILY PO 12/10/17 09:00 01/09/18 08:59 12/10/17 07:51 20 MG Bumetanide (Bumex Tab) 1 mg DAILY PO 12/10/17 09:00 01/09/18 08:59 Citalopram Hydrobromide (celeXA TAB) 20 mg DAILY PO 12/10/17 09:00 01/09/18 08:59 12/10/17 07:52 20 MG Gabapentin (Neurontin Tab) 600 mg BID PO 12/09/17 21:00 01/08/18 20:59 12/10/17 07:49 600 MG Lisinopril (Zestril Tab) 2.5 mg DAILY PO 12/10/17 09:00 01/09/18 08:59 12/10/17 07:50 2.5 MG Lorazepam (Ativan Tab) 0.5 mg TID PRN PO 12/09/17 15:15 01/08/18 15:14 Metoprolol Succinate (Toprol Xl Tab) 50 mg DAILY PO 12/10/17 09:00 01/09/18 08:59 12/10/17 07:52 50 MG Oxycodone/ Acetaminophen (Percocet 5-325mg Tab) 1 tab Q6H PRN PO 12/09/17 15:15 12/23/17 15:14 12/09/17 23:12 1 TAB Pantoprazole Sodium (Protonix Tab) 40 mg DAILY PO 12/10/17 09:00 01/09/18 08:59 12/10/17 07:50 40 MG Sotalol HCl (Betapace Tab) 80 mg BID PO 12/09/17 21:00 01/08/18 20:59 12/10/17 07:50 80 MG Warfarin Sodium (Coumadin Tab) 3 mg DAILY@1600 PO 12/09/17 18:00 01/08/18 17:59 12/09/17 18:42 3 MG Zolpidem Tartrate (Ambien Tab) 10 mg HS PRN PO 12/09/17 15:15 01/08/18 15:14 12/09/17 22:11 10 MG Potassium Chloride (Klor-Con Tab) 20 meq QAM PO 12/10/17 09:00 01/09/18 08:59 12/10/17 07:52 20 MEQ Ioversol (Optiray 320) 100 ml UD PRN IV 12/09/17 17:30 12/13/17 17:29 Miscellaneous (Iv Fluids Completed) 1 ea PRN PRN N/A 12/09/17 21:15 12/09/18 21:14 Physical Exam Vital Signs Past 12 Hours Date Time Temp Pulse Resp B/P (MAP) Pulse Ox O2 Delivery O2 Flow Rate FiO2 12/10/17 10:30 36.8 61 16 103/66 (78) 92 Room Air 12/10/17 08:00 95 Room Air 12/10/17 07:36 36.6 60 16 100/61 (74) 95 Room Air 12/10/17 03:27 36.4 60 16 98/60 (73) 94 Room Air Constitutional: General Apperance: heathly-appearing Level of Distress: NAD Psychiatric: Mental Status: active & alert Head: normocephalic Eyes: EOM: EOMI ENMT: normal ENT inspection, hearing grossly normal Neck: supple, no masses Lungs: Respiratory effort: no dyspnea, good air movement Auscultation: breath sounds normal, no wheezing Cardiovascular: Heart Auscultation: RRR, no murmurs, no rubs, no gallops Peripheral Pulses: Bruits: none appreciated Abdomen: Bowel Sounds: normal Inspection & Palpation: soft, no tenderness, guarding & rebound, no masses Musculoskeletal: normal strength (5/5 throughout), pertinent finding (Left below-knee amputation) Extremities: no edema Neurologic: Cranial Nerves: grossly intact Sensation: grossly intact Data Laboratory Results: Last 24 Hours Test 12/09/17 19:48 12/10/17 03:26 Total Creatine Kinase 76 U/L 76 U/L Creatine Kinase MB 1.0 ng/ml 1.4 ng/ml Creatine Kinase MB Ratio 1.3 1.8 Troponin I < 0.015 ng/ml < 0.015 ng/ml White Blood Count 4.05 K/uL Red Blood Count 4.56 M/uL Hemoglobin 13.8 g/dL Hematocrit 41.6 % Mean Corpuscular Volume 91.2 fL Mean Corpuscular Hemoglobin 30.3 pg Mean Corpuscular Hemoglobin Concent 33.2 g/dl RDW Standard Deviation 43.8 fL RDW Coefficient of Variation 13.2 % Platelet Count 99 K/uL Mean Platelet Volume 10.9 fL Platelet Estimate DECREASED Prothrombin Time 33.1 SECONDS Prothromb Time International Ratio 3.2 Sodium Level 137 mmol/L Potassium Level 4.4 mmol/L Chloride Level 105 mmol/L Carbon Dioxide Level 29 mmol/L Anion Gap 3.0 mmol/L Blood Urea Nitrogen 17 mg/dl Creatinine 1.19 mg/dl Est Creatinine Clear Calc Drug Dose 66.0 ml/min Estimated GFR () 72.3 Estimated GFR (Non- 62.4 BUN/Creatinine Ratio 14.0 Random Glucose 94 mg/dl Calcium Level 8.4 mg/dl Total Bilirubin 1.3 mg/dl Direct Bilirubin 0.3 mg/dl Aspartate Amino Transf (AST/SGOT) 14 U/L Alanine Aminotransferase (ALT/SGPT) 24 U/L Alkaline Phosphatase 93 U/L Total Protein 6.4 gm/dl Albumin 3.4 gm/dl Triglycerides Level 210 mg/dl Cholesterol Level 110 mg/dl HDL Cholesterol 29 mg/dl LDL Cholesterol, Calculated 39 mg/dl VLDL Cholesterol, Calculated 42 mg/dl Cholesterol/HDL Ratio 3.8 Imaging: Chest x-ray shows cardiomegaly and no congestive heart failure. CT scan for dissection is negative. EKG: AV pacing with appropriate biventricular pacing Telemetry reviewed: Sinus rhythm and atrial pacing with appropriate ventricular pacing ICD evaluation: The device is working well, he has had no atrial fibrillation or ventricular tachycardia Echocardiogram: This is pending. Assessment & Plan #1. Chest discomfort: He describes chest burning with exertion as well as at rest which could be anginal. He has had somewhat prolonged episodes that are increasing in frequency and yet he has not had any enzyme abnormalities. He also had a negative (for ischemia) stress test about a month and a half ago (a nuclear stress test in [place]). He of course has known coronary artery disease. We could perform catheterization, although be nice to have something objective before doing so. I am not convinced that his discomfort is anginal although it is possible. I would like to keep him n.p.o. for possible catheterization tomorrow, although I am not sure we will do it but will discuss him with my partners. #2. Biventricular ICD: His ICD is functioning well, device interrogation demonstrates no ventricular tachycardia. He has not had any atrial fibrillation , battery voltages good. He is AV pacing virtually all of the time. This is appropriate function. #3. Ventricular tachycardia: He has had no ventricular tachycardia identified since ablation, in the past he has had slow arrhythmias which were below detection of the device but his current device is set for a low detection rate ( 111 bpm) and there are no spikes in his heart rate histogram to suggest significant slower episodes. We have also not observe them on telemetry. At this point I would stop the sotalol. #4. Chronic systolic heart failure: He has not had worsening of his heart failure symptoms with ventricular pacing, hopefully he will continue to do well in that regard since he is pacer dependent now. His current presentation does not appear to be due to heart failure. #5. Atrial flutter: He has had no further atrial fibrillation or atrial flutter since device implantation. He does need to continue with warfarin, although I would hold it for the possibility of an upcoming catheterization.
[2017-12-10] MEDS: BUMETANIDE 1 MG TAB PO SCH (12:41)
[2017-12-10] MEDS: OXYCODONE/ACETAMINOPHEN 5-325 TAB PO PRN ×2 (12:42→20:10)
--- NOTE | 2017-12-10 15:17 | ECHOCARDIOGRAM REPORT ---
*NOTICE TO RECEIVING DEMOCRAT AGENCY This information is strictly Confidential and protected under [place] law. [place] law prohibits you from making any further disclosure of this information unless further disclosure is expressly permitted by the written consent of the person to whom it pertains or is authorized by law. A general authorization for the release of medical or other information is not sufficient for this purpose. Hospital accepts no responsibility if the information is made available to any other person, INCLUDING THE PATIENT. Interpretation Summary * Name: NICK GARSIA Study Date: 12/10/2017 06:30 AM BP: 98/60 mmHg * Patient Location: .2T\S\E219\S\1 HR: 60 * : 1950 (M/d/yyyy) Gender: Male Height: 69 in * Age: 66 yrs Ethnicity: [place] Weight: 212 lb * Ordering Physician: Delmi Patiño * Performed By: Kiara Clark RDCS * * Reason For Study: CHEST PAIN * BSA: 2.1 m2 * -- Conclusions -- * 1. Severely dilated LV. Normal LV wall thickness. * 2. Severe global LV dysfunction. LVEF 15-20%. * 3. Moderately dilated RV with dysfunction. * 4. Mild mitral regurgitation. * 5. Restrictive diastolic filling. * 6. Mild pulmonary hypertension. Estimated PASP 40-45 mmHg. Normal estimated CVP. * 7. Compared with prior study on 01/26/2017: No significant change Procedure Details * A complete two-dimensional transthoracic echocardiogram was performed (2D, M-mode, Doppler and color flow Doppler). Left Ventricle * The left ventricle is severely dilated. * There is normal left ventricular wall thickness. * Ejection Fraction = 15-20%. * There is severe global hypokinesis of the left ventricle. Right Ventricle * There is a pacemaker lead in the right ventricle. * The right ventricle is moderately dilated. * The right ventricular systolic function is moderately reduced. Atria * Borderline left atrial enlargement. * The right atrium is mildly dilated. Mitral Valve * The mitral valve is grossly normal. * There is no mitral valve stenosis. * There is mild mitral regurgitation. Tricuspid Valve * There is trace tricuspid regurgitation. * Right ventricular systolic pressure is elevated at 40-50mmHg. Aortic Valve * The aortic valve opens well. * The aortic valve is trileaflet. * No hemodynamically significant valvular aortic stenosis. * There is no significant aortic regurgitation. Pulmonic Valve * The pulmonary valve is inadequately visualized, but the Doppler data is adequate for interpretation. * There is no pulmonic valvular stenosis. * Trace pulmonic valvular regurgitation. Great Vessels * The aortic root and proximal ascending aorta are normal sized. Pericardium/Pleural * There is no pericardial effusion. Great Vessels * Normal inferior vena cava size and collapsability with sniff indicates a normal right atrial pressure of 3 mmHg Left Ventricular Diastolic Function * Diastolic dysfunction, Grade III (restrictive pattern), consistent with markedly increased left atrial pressure. MMode 2D Measurements and Calculations IVSd 1.3 cm IVSs 1.8 cm LVIDd 7.4 cm LVIDs 6.7 cm LVPWd 0.86 cm LVPWs 1.0 cm IVS/LVPW 1.5 FS 8.9 % EDV(Teich) 289.9 ml ESV(Teich) 234.9 ml EF(Teich) 19.0 % EDV(cubed) 406.1 ml ESV(cubed) 306.9 ml EF(cubed) 24.4 % % IVS thick 38.4 % % LVPW thick 17.6 % LV mass(C)d 383.7 grams LV mass(C)dI 181.2 grams/m\S\2 LV mass(C)s 461.3 grams LV mass(C)sI 217.9 grams/m\S\2 SV(Teich) 55.0 ml SI(Teich) 26.0 ml/m\S\2 SV(cubed) 99.3 ml SI(cubed) 46.9 ml/m\S\2 EPSS 1.8 cm ACS 2.2 cm LA dimension 5.3 cm asc Aorta Diam 3.0 cm LVOT diam 2.1 cm LVOT area 3.4 cm\S\2 LVAd ap4 57.8 cm\S\2 LVLd ap4 10.3 cm EDV(MOD-sp4) 265.6 ml EDV(sp4-el) 274.3 ml LVAs ap4 52.8 cm\S\2 LVLs ap4 10.3 cm ESV(MOD-sp4) 220.9 ml ESV(sp4-el) 229.6 ml EF(MOD-sp4) 16.8 % EF(sp4-el) 16.3 % LVAd ap2 51.8 cm\S\2 LVLd ap2 10.7 cm EDV(MOD-sp2) 213.7 ml EDV(sp2-el) 212.5 ml LVAs ap2 47.3 cm\S\2 LVLs ap2 10.3 cm ESV(MOD-sp2) 180.4 ml ESV(sp2-el) 184.2 ml EF(MOD-sp2) 15.6 % EF(sp2-el) 13.3 % LVLd %diff 3.7 % EDV(MOD-bp) 242.5 ml LVLs %diff -0.13 % ESV(MOD-bp) 200.9 ml EF(MOD-bp) 17.2 % SV(MOD-sp4) 44.7 ml SI(MOD-sp4) 21.1 ml/m\S\2 SV(MOD-sp2) 33.3 ml SI(MOD-sp2) 15.7 ml/m\S\2 SV(MOD-bp) 41.6 ml SI(MOD-bp) 19.7 ml/m\S\2 SV(sp4-el) 44.7 ml SI(sp4-el) 21.1 ml/m\S\2 SV(sp2-el) 28.2 ml SI(sp2-el) 13.3 ml/m\S\2 Doppler Measurements and Calculations MV E max maty 102.7 cm/sec MV A max maty 45.7 cm/sec MV E/A 2.2 MV dec time 0.15 sec Ao V2 max 92.3 cm/sec Ao max PG 3.4 mmHg Ao max PG (full) 2.6 mmHg JOSEFINA(V,A) 1.7 cm\S\2 JOSEFINA(V,D) 1.7 cm\S\2 LV V1 max PG 0.82 mmHg LV V1 max 45.3 cm/sec MR max maty 354.3 cm/sec MR max PG 50.2 mmHg PA V2 max 41.1 cm/sec PA max PG 0.68 mmHg PI end-d maty 37.5 cm/sec TR max maty 321.4 cm/sec
[2017-12-10] MEDS: LORAZEPAM 0.5 MG TAB PO PRN (18:33)
[2017-12-10] MEDS: ZOLPIDEM TARTRATE 10 MG TAB PO PRN (23:11)
[2017-12-11] VITALS (7 sets, daily range): BP systolic 87–113; BP diastolic 52–74; PULSE 59–78; TEMP 36.5–37; O2SAT 93–97
[2017-12-11 06:49] LABS: HEMATOCRIT 43.8 % (42-52); HEMOGLOBIN 14.7 g/dL (14.0-18.0); MEAN CELL VOLUME 90.9 fL (80-100); MEAN CORPUSCULAR HEMOGLOBIN 30.5 pg (25-34); MEAN CORPUSCULAR HGB CONC 33.6 g/dl (32-36); MEAN PLATELET VOLUME 11.5 fL (7.4-10.4); PLATELET COUNT 103 K/uL (130-400); RED CELL DISTRIBUTION WIDTH CV 13.1 % (11.5-14.5); RED CELL DISTRIBUTION WIDTH SD 43.5 fL (36.4-46.3); WHITE BLOOD COUNT 4.55 K/uL (4.8-10.8)
[2017-12-11 06:59] LABS: INR 3.2 (0.9-1.1)
[2017-12-11 07:40] LABS: CALCIUM 8.4 mg/dl (8.5-10.1); CREATININE 1.18 mg/dl (0.60-1.40); POTASSIUM 3.8 mmol/L (3.5-5.1)
[2017-12-11] MEDS: GABAPENTIN 600 MG TAB PO SCH ×2 (08:50→21:20)
[2017-12-11] MEDS: PANTOprazole SOD 40 MG TAB PO SCH ×2 (08:51→21:20)
[2017-12-11] MEDS: ASPIRIN 81 MG ECTAB PO SCH (08:51)
[2017-12-11] MEDS: POTASSIUM CHLORIDE 20 MEQ TABCR PO SCH (08:51)
[2017-12-11] MEDS: CITALOPRAM 20 MG TAB PO SCH (08:51)
[2017-12-11] MEDS: ATORVASTATIN 20 MG TAB PO SCH (08:52)
[2017-12-11] MEDS: BUMETANIDE 1 MG TAB PO SCH (08:52)
[2017-12-11] MEDS: LISINOPRIL 2.5 MG TAB PO SCH (08:52)
[2017-12-11] MEDS: METOPROLOL SUCC 50MG EXT REL TAB PO SCH (08:53)
--- NOTE | 2017-12-11 10:02 | Hospitalist Progress Note ---
Hospitalist Progress Note Date of Service Dec 11, 2017. (Charlene Guzmán ., GABBI) Subjective Pt evaluation today including: conversation w/ patient, conversation w/ family , physical exam, chart review, lab review, review of inpatient medication list Voiding: no voiding problems Mr. Ruggiero has not had any chest pain since yesterday afternoon when he had chest pain across his chest and arms which improved with percoset. No sob, lightheadedness or palpitations. No events overnight. Pacing in the 60s on the monitor. ROS Constitutional: no chills, aches, sweats or fever Respiratory: no sob,cough, sputum, or wheezing Cardiac: see HPI GI: no abdominal pain, nausea, vomiting, diarrhea or constipation : no dysuria or hesitancy Extremities: no joint pain or weakness Skin: no rash All other systems reviewed and negative (Charlene Guzmán ., GABBI) Medications Medications Administered Medications (Trade) Dose Ordered Sig/Maya Route Start Time Stop Time Status Last Admin Dose Admin Al Hydroxide/Mg Hydroxide (Maalox Susp) 15 ml NOW STAT PO 12/09/17 11:24 12/09/17 11:25 DC 12/09/17 11:24 15 ML Nitroglycerin (Nitroglycerin 2% Oint) 1 inch NOW ONCE EXT 12/09/17 13:00 12/09/17 13:01 DC 12/09/17 13:00 1 INCH Al Hydrox/Mg Hydrox/Simethicone (Maalox Max Susp) 15 ml Q4H PRN PO 12/09/17 15:00 01/08/18 14:59 12/09/17 19:11 15 ML Nitroglycerin (Nitrostat Tab) 0.4 mg UD PRN SL 12/09/17 15:00 01/08/18 14:59 12/09/17 19:33 0.4 MG Aspirin (Ecotrin Tab) 81 mg DAILY PO 12/10/17 09:00 01/09/18 08:59 12/11/17 08:51 81 MG Atorvastatin Calcium (Lipitor Tab) 20 mg DAILY PO 12/10/17 09:00 01/09/18 08:59 12/11/17 08:52 20 MG Bumetanide (Bumex Tab) 1 mg DAILY PO 12/10/17 09:00 01/09/18 08:59 12/10/17 12:41 1 MG Citalopram Hydrobromide (celeXA TAB) 20 mg DAILY PO 12/10/17 09:00 01/09/18 08:59 12/11/17 08:51 20 MG Gabapentin (Neurontin Tab) 600 mg BID PO 12/09/17 21:00 01/08/18 20:59 12/11/17 08:50 600 MG Lisinopril (Zestril Tab) 2.5 mg DAILY PO 12/10/17 09:00 01/09/18 08:59 12/11/17 08:52 2.5 MG Lorazepam (Ativan Tab) 0.5 mg TID PRN PO 12/09/17 15:15 01/08/18 15:14 12/10/17 18:33 0.5 MG Metoprolol Succinate (Toprol Xl Tab) 50 mg DAILY PO 12/10/17 09:00 01/09/18 08:59 12/10/17 07:52 50 MG Oxycodone/ Acetaminophen (Percocet 5-325mg Tab) 1 tab Q6H PRN PO 12/09/17 15:15 12/23/17 15:14 12/10/17 20:10 1 TAB Pantoprazole Sodium (Protonix Tab) 40 mg DAILY PO 12/10/17 09:00 01/09/18 08:59 12/11/17 08:51 40 MG Sotalol HCl (Betapace Tab) 80 mg BID PO 12/09/17 21:00 12/10/17 15:55 DC 12/10/17 07:50 80 MG Warfarin Sodium (Coumadin Tab) 3 mg DAILY@1600 PO 12/09/17 18:00 01/08/18 17:59 Future Hold 12/09/17 18:42 3 MG Zolpidem Tartrate (Ambien Tab) 10 mg HS PRN PO 12/09/17 15:15 01/08/18 15:14 12/10/17 23:11 10 MG Potassium Chloride (Klor-Con Tab) 20 meq QAM PO 12/10/17 09:00 01/09/18 08:59 12/11/17 08:51 20 MEQ Morphine Sulfate (MoRPHine SULFATE INJ) 2 mg NOW STAT IV 12/09/17 15:09 12/09/17 15:16 DC 12/09/17 15:09 2 MG (Charlene Guzmán CRNP) Objective Vital Signs Date Time Temp Pulse Resp B/P (MAP) Pulse Ox O2 Delivery O2 Flow Rate FiO2 12/11/17 08:00 Room Air 12/11/17 07:06 36.6 64 18 90/52 (65) 97 12/11/17 03:48 36.5 61 18 90/52 (65) 94 Room Air 12/10/17 23:38 36.7 63 18 96/58 (71) 97 Room Air 12/10/17 20:00 Room Air 12/10/17 20:00 36.6 61 16 94/59 (71) 94 Room Air 12/10/17 15:34 36.7 60 16 114/65 (81) 95 Room Air 12/10/17 10:30 36.8 61 16 103/66 (78) 92 Room Air (Charlene Guzmán CRNP) Physical Exam Notes: General: no distress Eyes: normal inspection, PERLL Respiratory: chest non tender, clear to auscultation, normal breath sounds, no respiratory distress, no accessory muscle use Cardiac: regular rate and rhythm, no rub or gallop, no murmur, no edema, no jvd GI/: active bowel sounds, no abd pain or tenderness, soft, non distended Extremities: normal range of motion, normal strength, non tender Neuro/Psych: alert and oriented x 3, normal mood and affect Skin: normal color, dry (Charlene Guzmán CRNP) Laboratory Results Last 24 Hours Test 12/10/17 20:15 12/11/17 06:23 Urine Color YELLOW Urine Appearance CLEAR Urine pH 5.0 Urine Specific [place] 1.012 Urine Protein NEG Urine Glucose (UA) NEG Urine Ketones NEG Urine Occult Blood NEG Urine Nitrite NEG Urine Bilirubin NEG Urine Urobilinogen NEG Urine Leukocyte Esterase NEG White Blood Count 4.55 K/uL Red Blood Count 4.82 M/uL Hemoglobin 14.7 g/dL Hematocrit 43.8 % Mean Corpuscular Volume 90.9 fL Mean Corpuscular Hemoglobin 30.5 pg Mean Corpuscular Hemoglobin Concent 33.6 g/dl RDW Standard Deviation 43.5 fL RDW Coefficient of Variation 13.1 % Platelet Count 103 K/uL Mean Platelet Volume 11.5 fL Prothrombin Time 32.9 SECONDS Prothromb Time International Ratio 3.2 Sodium Level 140 mmol/L Potassium Level 3.8 mmol/L Chloride Level 104 mmol/L Carbon Dioxide Level 29 mmol/L Anion Gap 7.0 mmol/L Blood Urea Nitrogen 25 mg/dl Creatinine 1.18 mg/dl Est Creatinine Clear Calc Drug Dose 66.0 ml/min Estimated GFR () 73.1 Estimated GFR (Non- 63.0 BUN/Creatinine Ratio 21.3 Random Glucose 79 mg/dl Calcium Level 8.4 mg/dl (Charlene Guzmán, GABBI) Assessment and Plan Mr. Ruggiero is a 66 y/o male here with chest pain. Chest pain, ACS r/o--stable - no events on telemetry overnight - troponins negative x3 -Echo shows EF 15-20% with severe global hypokinesis of LV. Moderately dilated RV. RV systolic function moderately reduced. Mild mitral regurgitation. Grade III diastolic dysfunction/restrictive diastolic filling. Mild pulmonary HTN. PASP 40-45 mmHg. No significant change from 01/26/17 study. -Nitro SL prn -Consult cardiology, appreciate recs: no plan for cath, no stress testing at this time, pt had a normal stress test during recent admission in [place]. -Pacemaker interrogation -Fasting lipid panel shows triglycerides 210, total cholesterol 110, non-HDL 81 -EKG q am and prn chest pain -CTA chest negative for dissection and PE CAD, h/o ND, HLD -Continue ASA, Toprol XL 50 mg PO qd, lisinopril 2.5 mg PO qd, Lipitor 20 mg PO qd A-flutter, h/o v-tach s/p ablation, pacemaker/defibrillator--stable -Pacemaker working appropriately per cardio -Continue Toprol -D/C sotalol per cardio recs - warfarin held last night while considering cath, per cardiology - no cath, restart warfarin Chronic systolic CHF--stable, no acute exacerbation -Continue metoprolol, RUFINO, - Bumex 1 mg PO qd - held for low blood pressure this morning Pulmonary nodule -10 mm pulmonary nodule in right lung base, seen previously [place] [address] Recommend f/u in 6 months Anxiety, depression, phantom pain -Continue Celexa 20 mg PO qd, Ativan 0.5 mg PO TID prn anxiety, gabapentin 600 mg PO BID RHIANNA -CPAP Chronic reflux esophagitis- - continue Protonix 40 mg PO qd - Maalox prn DVT prophylaxis -Warfarin therapeutic -LUCIA hose and SCDs Code Status -Level V, DO NOT RESUSCITATE (Charlene Guzmán ., GABBI) LATHE TURNER Physician Supervision Note: I interviewed and examined the patient. Discussed with Charlene Guzmán LATHE TURNER and agree with findings and plan as documented in the note. Any exceptions or clarifications are listed here: None Patient has cardia myopathy and non-typical chest pain cardiology now recommends pursuing gastrointestinal workup will escalate PPI and Carafate to see if symptoms resolve Documented By: Jonel Daugherty (Jonel Daugherty M.D.)
[2017-12-11] MEDS: ALUMINUM/MAGNESIUM/SIMETH (MAALOX MAX) 30 ML UDC PO PRN ×2 (12:08→18:11)
[2017-12-11] MEDS: OXYCODONE/ACETAMINOPHEN 5-325 TAB PO PRN (18:11)
[2017-12-11] MEDS: RANITIDINE HCL 150 MG TAB PO PRN (18:28)
[2017-12-11] MEDS ORDERED: WARFARIN SOD 3 MG TAB PO ONE (18:30)
[2017-12-11] MEDS: LORAZEPAM 0.5 MG TAB PO PRN (21:20)
[2017-12-11] MEDS: SUCRALFATE 1 GM/10 ML UDC PO SCH (21:20)
[2017-12-11] MEDS: ZOLPIDEM TARTRATE 10 MG TAB PO PRN (23:21)
[2017-12-12] VITALS (10 sets, daily range): BP systolic 91–161; BP diastolic 55–101; PULSE 59–81; TEMP 36.2–36.7; O2SAT 90–98
[2017-12-12 05:40] LABS: HEMATOCRIT 42.4 % (42-52); HEMOGLOBIN 14.1 g/dL (14.0-18.0); MEAN CELL VOLUME 91.2 fL (80-100); MEAN CORPUSCULAR HEMOGLOBIN 30.3 pg (25-34); MEAN CORPUSCULAR HGB CONC 33.3 g/dl (32-36); RED CELL DISTRIBUTION WIDTH CV 13.2 % (11.5-14.5); RED CELL DISTRIBUTION WIDTH SD 43.7 fL (36.4-46.3); WHITE BLOOD COUNT 4.59 K/uL (4.8-10.8)
[2017-12-12 06:02] LABS: INR 2.8 (0.9-1.1)
[2017-12-12 06:07] LABS: CALCIUM 7.8 mg/dl (8.5-10.1); CREATININE 1.21 mg/dl (0.60-1.40); POTASSIUM 3.9 mmol/L (3.5-5.1)
[2017-12-12 06:13] LABS: MEAN PLATELET VOLUME 10.5 fL (7.4-10.4); PLATELET COUNT 99 K/uL (130-400)
[2017-12-12] MEDS: BUMETANIDE 1 MG TAB PO SCH (08:02)
[2017-12-12] MEDS: CITALOPRAM 20 MG TAB PO SCH (08:02)
[2017-12-12] MEDS: SUCRALFATE 1 GM/10 ML UDC PO SCH ×4 (08:02→20:04)
[2017-12-12] MEDS: GABAPENTIN 600 MG TAB PO SCH ×2 (08:02→20:04)
[2017-12-12] MEDS: ATORVASTATIN 20 MG TAB PO SCH (08:02)
[2017-12-12] MEDS: POTASSIUM CHLORIDE 20 MEQ TABCR PO SCH (08:03)
[2017-12-12] MEDS: RANITIDINE HCL 150 MG TAB PO PRN (08:03)
[2017-12-12] MEDS: METOPROLOL SUCC 50MG EXT REL TAB PO SCH (08:03)
[2017-12-12] MEDS: ASPIRIN 81 MG ECTAB PO SCH (08:03)
[2017-12-12] MEDS: LISINOPRIL 2.5 MG TAB PO SCH (08:03)
[2017-12-12] MEDS: PANTOprazole SOD 40 MG TAB PO SCH ×2 (08:03→20:04)
--- NOTE | 2017-12-12 09:27 | Cardiology Follow-Up ---
Subjective Date of Service: Dec 11, 2017. Pt evaluation today including: conversation w/ patient, conversation w/ family , physical exam, chart review, lab review, review of studies, review of inpatient medication list, conversation w/ attending History of Present Illness This is a late entry from 12/11/2017. I had the opportunity speak with Mr. Ruggiero and his last evening regarding his recent symptoms. The patient had fairly severe symptoms for an extended period leading up to his admission to [facility]. In fact, it seems as if his symptoms have never fully resolved. They have wax and wane in severity and perhaps responded to both Maalox and narcotics at times. More recently his symptoms have been localized to the epigastric region. He describes it as a constant dull aching sensation which appears to be slightly worse after eating. He is not appear to have associated breathing difficulty. He has been ambulatory around his room without any change in the character of his symptoms. There is not appear to be a pleuritic component. Social History Smoking Status: Former Smoker History of Alcohol Use: No Review of Systems Respiratory: + cough, + shortness of breath, + dyspnea on exertion Cardiac: + see HPI, + chest pain, No palpitations Objective Vital Signs Past 12 Hours Date Time Temp Pulse Resp B/P (MAP) Pulse Ox O2 Delivery O2 Flow Rate FiO2 12/12/17 08:20 Room Air 12/12/17 07:42 36.5 60 20 111/70 (84) 95 Room Air 12/12/17 04:34 36.4 60 16 105/64 (78) 90 Room Air 12/12/17 00:03 Room Air 12/11/17 23:29 36.6 60 16 113/74 (87) 96 Room Air Last Recorded Weight-Kilograms: 89.300 Physical Exam Constitutional: General Apperance: heathly-appearing Level of Distress: NAD Lungs: Respiratory effort: no dyspnea, good air movement Auscultation: breath sounds normal, no wheezing Cardiovascular: Heart Auscultation: RRR, no murmurs, no rubs, no gallops Peripheral Pulses: Bruits: none appreciated Extremities: no edema Data Laboratory Results: Last 24 Hours Test 12/12/17 05:16 White Blood Count 4.59 K/uL Red Blood Count 4.65 M/uL Hemoglobin 14.1 g/dL Hematocrit 42.4 % Mean Corpuscular Volume 91.2 fL Mean Corpuscular Hemoglobin 30.3 pg Mean Corpuscular Hemoglobin Concent 33.3 g/dl RDW Standard Deviation 43.7 fL RDW Coefficient of Variation 13.2 % Platelet Count 99 K/uL Mean Platelet Volume 10.5 fL Platelet Estimate DECREASED Prothrombin Time 28.8 SECONDS Prothromb Time International Ratio 2.8 Sodium Level 136 mmol/L Potassium Level 3.9 mmol/L Chloride Level 103 mmol/L Carbon Dioxide Level 27 mmol/L Anion Gap 6.0 mmol/L Blood Urea Nitrogen 23 mg/dl Creatinine 1.21 mg/dl Est Creatinine Clear Calc Drug Dose 64.4 ml/min Estimated GFR () 70.9 Estimated GFR (Non- 61.1 BUN/Creatinine Ratio 18.7 Random Glucose 82 mg/dl Calcium Level 7.8 mg/dl Telemetry reviewed: Av sequential pacing without significant arrhythmia Assessment and Plan 1. Chest pain: While the patient certainly is at risk for coronary syndromes and angina, I do not believe his current symptoms are likely related to an acute coronary syndrome or coronary insufficiency. The extended nature of his symptoms in the fairly diffuse complaints originally without elevation in his cardiac biomarkers suggest an alternate diagnosis. Unfortunately, his EKG is not helpful in diagnosing coronary disease given his biventricular pacing. Some features of his symptoms including the epigastric location and response to narcotics also speak against coronary syndrome. Given his known coronary anatomy, specifically occlusion of his vein graft's, he likely has a low threshold for ischemia. Again, given the fairly severe and extended nature of his symptoms without elevation in his biomarkers makes me suspect a noncardiac etiology. It is possible this represents some gastrointestinal irritation. He has been on Protonix but did receive some additional benefit with a dose of Zantac last night. I do not think he requires any additional coronary evaluation. I would not advocate catheterization or stress testing. 2. Ventricular tachycardia: No recurrent episodes since admission. He appears to have undergone a successful ablation with an upgrade to a biventricular device in [place] earlier this year. 3. Ischemic cardiomyopathy: Doing well on his current medical therapy. He appears well compensated at this time. He is not complaining of significant breathing difficulty and his lung exam is benign.
[2017-12-12] MEDS: OXYCODONE/ACETAMINOPHEN 5-325 TAB PO PRN (10:59)
--- NOTE | 2017-12-12 11:32 | CARDIOLOGY PROGRESS NOTE ---
DATE: 12/12/2017 SUBJECTIVE: Mr. Ruggiero is resting comfortably in bed without complaints of chest pain or dyspnea. His history was reviewed in detail. Approximately 3-4 weeks ago, the patient began to notice discomfort in his upper abdomen, which radiated to his chest and to the interscapular region. These symptoms occurred spontaneously and would typically last for up to 10 minutes. He did occasionally try a sublingual nitroglycerin with no relief. The patient explained that these episodes would happen 2-4 times every day. There were no other associated symptoms such as shortness of breath, nausea, or vomiting. On Monday, the patient's symptoms began spontaneously approximately 10:00 a.m. and persisted until 3:00 p.m. He feels that the Percocet he received in the Emergency Room helped his symptoms resolve. At his admission, there have been no further episodes of his discomfort as described. OBJECTIVE: VITAL SIGNS: Blood pressure 111/70 with a regular pulse of 60. Respiratory rate is 20 and the patient is afebrile at 36.5 degrees Celsius. Saturation is 95% on room air. NECK: Supple with full carotid upstrokes. There are no carotid bruits. Jugular venous pressure is flat at 90 degrees. There is no thyromegaly. CARDIOVASCULAR: Reveals a regular rhythm with distant heart sounds. No obvious murmurs. No S3. LUNGS: Clear without rales, rhonchi, or wheeze. ABDOMEN: Benign without bruits. EXTREMITIES: Note intact radial artery pulse bilaterally. Left BKA noted. DATA: CBC notes hemoglobin 14.1, hematocrit 42.4, white count 4.5 and platelet count 99,000. Electrolytes: Sodium 136, potassium 3.9, chloride 103, bicarbonate 23, creatinine 1.2, and glucose of 82. Three troponin I levels are undetectable and less than 0.015. EKG notes AV pacemaking with a biventricular device detected. Unchanged from prior tracings. woodwork teacher notes appropriate pacing. IMPRESSION AND PLAN: 1. Chest pain syndrome - doubt that this represents coronary ischemia as he had a prolonged episode on Monday with completely undetectable troponin levels. His history suggests that his discomfort begins in his abdomen that radiates to the chest and interscapular region. It occurs and resolves spontaneously. May need to consider a GI workup. 2. Ischemic cardiomyopathy - with ejection fraction of less than 20%. Of note, the patient did have a nuclear stress test performed on 10/30/2017 at [facility]. This noted an extensive circumflex right coronary artery infarction, but no evidence of ischemia. Ejection fraction was felt to be 20%. No need for further stress testing at this time. 3. Coronary artery disease - status post coronary artery bypass graft x4 in 2009. Only internal mammary graft is patent per cardiac catheterization performed five years ago. 4. Ventricular tachycardia - extensive and complex history as outlined in Dr. Sanders's note. He is now stable on sotalol after an ablation performed at [facility] last month. 5. Systolic congestive heart failure - compensated. 6. Peripheral vascular disease - status post left below-knee amputation. CALVIND
[2017-12-12] MEDS: LORAZEPAM 0.5 MG TAB PO PRN ×2 (16:05→20:03)
[2017-12-12] MEDS: WARFARIN SOD 3 MG TAB PO SCH (16:06)
--- NOTE | 2017-12-12 16:29 | Hospitalist Progress Note ---
Hospitalist Progress Note Date of Service Dec 12, 2017. (Charlene Guzmán .GABBI) Subjective Pt evaluation today including: conversation w/ patient, physical exam, chart review, lab review, conversation w/ b2b sales consultant (cardiology), review of inpatient medication list Voiding: no voiding problems I was called by nursing to come bedside and see patient. He complained of SOB with ambulation, chest pain radiating to arms, nausea and lightheadedness. SBP 160s during this episode. He is normally able to ambulate around his house and walk to his mailbox. I did discuss with cardiology ROS Constitutional: no chills, aches, sweats or fever Respiratory: no sob,cough, sputum, or wheezing Cardiac: see HPI GI: no abdominal pain, nausea, vomiting, diarrhea or constipation : no dysuria or hesitancy Extremities: no joint pain or weakness Skin: no rash All other systems reviewed and negative (Charlene Guzmán CRNP) Medications Medications Administered Medications (Trade) Dose Ordered Sig/Maya Route Start Time Stop Time Status Last Admin Dose Admin Al Hydroxide/Mg Hydroxide (Maalox Susp) 15 ml NOW STAT PO 12/09/17 11:24 12/09/17 11:25 DC 12/09/17 11:24 15 ML Nitroglycerin (Nitroglycerin 2% Oint) 1 inch NOW ONCE EXT 12/09/17 13:00 12/09/17 13:01 DC 12/09/17 13:00 1 INCH Al Hydrox/Mg Hydrox/Simethicone (Maalox Max Susp) 15 ml Q4H PRN PO 12/09/17 15:00 01/08/18 14:59 12/11/17 18:11 15 ML Ondansetron HCl (Zofran Inj) 4 mg Q6H PRN IV 12/09/17 15:00 01/08/18 14:59 12/11/17 18:11 4 MG Nitroglycerin (Nitrostat Tab) 0.4 mg UD PRN SL 12/09/17 15:00 01/08/18 14:59 12/09/17 19:33 0.4 MG Aspirin (Ecotrin Tab) 81 mg DAILY PO 12/10/17 09:00 01/09/18 08:59 12/12/17 08:03 81 MG Atorvastatin Calcium (Lipitor Tab) 20 mg DAILY PO 12/10/17 09:00 01/09/18 08:59 12/12/17 08:02 20 MG Bumetanide (Bumex Tab) 1 mg DAILY PO 12/10/17 09:00 01/09/18 08:59 12/12/17 08:02 1 MG Citalopram Hydrobromide (celeXA TAB) 20 mg DAILY PO 12/10/17 09:00 01/09/18 08:59 12/12/17 08:02 20 MG Gabapentin (Neurontin Tab) 600 mg BID PO 12/09/17 21:00 01/08/18 20:59 12/12/17 08:02 600 MG Lisinopril (Zestril Tab) 2.5 mg DAILY PO 12/10/17 09:00 01/09/18 08:59 12/12/17 08:03 2.5 MG Lorazepam (Ativan Tab) 0.5 mg TID PRN PO 12/09/17 15:15 01/08/18 15:14 12/12/17 16:05 0.5 MG Metoprolol Succinate (Toprol Xl Tab) 50 mg DAILY PO 12/10/17 09:00 01/09/18 08:59 12/12/17 08:03 50 MG Oxycodone/ Acetaminophen (Percocet 5-325mg Tab) 1 tab Q6H PRN PO 12/09/17 15:15 12/23/17 15:14 12/12/17 10:59 1 TAB Pantoprazole Sodium (Protonix Tab) 40 mg DAILY PO 12/10/17 09:00 12/11/17 18:52 DC 12/11/17 08:51 40 MG Sotalol HCl (Betapace Tab) 80 mg BID PO 12/09/17 21:00 12/10/17 15:55 DC 12/10/17 07:50 80 MG Warfarin Sodium (Coumadin Tab) 3 mg DAILY@1600 PO 12/09/17 18:00 12/11/17 10:40 DC 12/09/17 18:42 3 MG Zolpidem Tartrate (Ambien Tab) 10 mg HS PRN PO 12/09/17 15:15 01/08/18 15:14 12/11/17 23:21 10 MG Potassium Chloride (Klor-Con Tab) 20 meq QAM PO 12/10/17 09:00 01/09/18 08:59 12/12/17 08:03 20 MEQ Morphine Sulfate (MoRPHine SULFATE INJ) 2 mg NOW STAT IV 12/09/17 15:09 12/09/17 15:16 DC 12/09/17 15:09 2 MG Ranitidine HCl (zANTac TAB) 150 mg BID PRN PO 12/11/17 16:30 01/10/18 16:29 12/12/17 08:03 150 MG Warfarin Sodium (Coumadin Tab) 3 mg DAILY@16 PO 12/12/17 16:00 01/11/18 15:59 12/12/17 16:06 3 MG Warfarin Sodium (Coumadin Tab) 3 mg 1830 ONCE PO 12/11/17 18:30 12/11/17 18:31 DC 12/11/17 18:29 3 MG Pantoprazole Sodium (Protonix Tab) 40 mg BID PO 12/11/17 21:00 01/09/18 08:59 12/12/17 08:03 40 MG Sucralfate (Carafate Susp) 1 gm QID PO 12/11/17 21:00 01/10/18 20:59 12/12/17 16:05 1 GM (Charlene Guzmán, GABBI) Objective Vital Signs Date Time Temp Pulse Resp B/P (MAP) Pulse Ox O2 Delivery O2 Flow Rate FiO2 12/12/17 15:39 67 94 12/12/17 15:00 36.7 81 18 94/60 (71) 92 Room Air 12/12/17 11:58 66 20 125/79 (94) 98 Room Air 12/12/17 11:07 59 117/71 (86) 12/12/17 10:42 36.2 79 20 150/101 (117) 97 Room Air 161/94 (116) 12/12/17 08:20 Room Air 12/12/17 07:42 36.5 60 20 111/70 (84) 95 Room Air 12/12/17 04:34 36.4 60 16 105/64 (78) 90 Room Air 12/12/17 00:03 Room Air 12/11/17 23:29 36.6 60 16 113/74 (87) 96 Room Air 12/11/17 19:57 95 Room Air 12/11/17 19:40 36.7 78 16 104/71 (82) 93 Room Air (Charlene Guzmán CRNP) Physical Exam Notes: General: no distress Eyes: normal inspection, PERLL Respiratory: chest non tender, clear to auscultation, normal breath sounds, no respiratory distress, no accessory muscle use Cardiac: regular rate and rhythm, no rub or gallop, no murmur, no edema, no jvd GI/: active bowel sounds, no abd pain or tenderness, soft, non distended Extremities: normal range of motion, normal strength, non tender Neuro/Psych: alert and oriented x 3, normal mood and affect Skin: normal color, dry (Charlene Guzmán CRNP) Laboratory Results Last 24 Hours Test 12/12/17 05:16 White Blood Count 4.59 K/uL Red Blood Count 4.65 M/uL Hemoglobin 14.1 g/dL Hematocrit 42.4 % Mean Corpuscular Volume 91.2 fL Mean Corpuscular Hemoglobin 30.3 pg Mean Corpuscular Hemoglobin Concent 33.3 g/dl RDW Standard Deviation 43.7 fL RDW Coefficient of Variation 13.2 % Platelet Count 99 K/uL Mean Platelet Volume 10.5 fL Platelet Estimate DECREASED Prothrombin Time 28.8 SECONDS Prothromb Time International Ratio 2.8 Sodium Level 136 mmol/L Potassium Level 3.9 mmol/L Chloride Level 103 mmol/L Carbon Dioxide Level 27 mmol/L Anion Gap 6.0 mmol/L Blood Urea Nitrogen 23 mg/dl Creatinine 1.21 mg/dl Est Creatinine Clear Calc Drug Dose 64.4 ml/min Estimated GFR () 70.9 Estimated GFR (Non- 61.1 BUN/Creatinine Ratio 18.7 Random Glucose 82 mg/dl Calcium Level 7.8 mg/dl (Charlene Guzmán CRNP) Assessment and Plan Mr. Ruggiero is a 66 y/o male here with chest pain. Chest pain, ACS r/o--stable - no events on telemetry overnight - troponins negative x3 -Echo shows EF 15-20% with severe global hypokinesis of LV. Moderately dilated RV. RV systolic function moderately reduced. Mild mitral regurgitation. Grade III diastolic dysfunction/restrictive diastolic filling. Mild pulmonary HTN. PASP 40-45 mmHg. No significant change from 9/21/17 study. -Nitro SL prn -Consult cardiology, appreciate recs: no plan for cath, no stress testing at this time, pt had a normal stress test during recent admission in [place]. -Pacemaker interrogation -Fasting lipid panel shows triglycerides 210, total cholesterol 110, non-HDL 81 -EKG q am and prn chest pain -CTA chest negative for dissection and PE - patient did well with physical therapy evaluation following chest pain episode walking. CAD, h/o OR, HLD -Continue ASA, Toprol XL 50 mg PO qd, lisinopril 2.5 mg PO qd, Lipitor 20 mg PO qd A-flutter, h/o v-tach s/p ablation, pacemaker/defibrillator--stable -Pacemaker working appropriately per cardio -Continue Toprol -D/C sotalol per cardio recs - continue warfarin, INR in am Chronic systolic CHF--stable, no acute exacerbation -Continue metoprolol, RUFINO, - continue Bumex Pulmonary nodule -10 mm pulmonary nodule in right lung base, seen [place] [address] Recommend f/u in 6 months Anxiety, depression, phantom pain -Continue Celexa 20 mg PO qd, Ativan 0.5 mg PO TID prn anxiety, gabapentin 600 mg PO BID RHIANNA -CPAP Chronic reflux esophagitis- - protonix increased to bid, ranitidine prn, sucralfate qid DVT prophylaxis -Warfarin therapeutic -LUCIA mcmullene and SCDs Code Status -Level V, DO NOT RESUSCITATE (Charlene Guzmán ., GABBI) INTERSTATE BUS DISPATCHER Physician Supervision Note: I discussed with Charlene Guzmán INTERSTATE BUS DISPATCHER and agree with findings and plan as documented in the note. Any exceptions or clarifications are listed here: None Pt is with variable chest discomfort that may or maynot be cardiac, will try Ranexa and see if symptoms ирина Documented By: Jonel Daugherty (Jonel Daugherty M.D.)
[2017-12-12] MEDS: RANOLAZINE 500 MG ER TAB PO SCH (20:05)
[2017-12-12] MEDS: ZOLPIDEM TARTRATE 10 MG TAB PO PRN (23:23)
[2017-12-13] MEDS: LORAZEPAM 0.5 MG TAB PO PRN ×3 (00:23→16:11)
[2017-12-13 03:00] VITALS: BP 100/66; PULSE 60; TEMP 36.9; O2SAT 94
[2017-12-13 06:52] VITALS: BP 135/87; PULSE 65; TEMP 36.4; O2SAT 96
[2017-12-13 08:12] LABS: HEMATOCRIT 42.4 % (42-52); HEMOGLOBIN 14.3 g/dL (14.0-18.0); MEAN CORPUSCULAR HEMOGLOBIN 30.7 pg (25-34); MEAN CORPUSCULAR HGB CONC 33.7 g/dl (32-36); RED CELL DISTRIBUTION WIDTH CV 13.2 % (11.5-14.5); RED CELL DISTRIBUTION WIDTH SD 43.6 fL (36.4-46.3); WHITE BLOOD COUNT 4.95 K/uL (4.8-10.8)
[2017-12-13 08:14] LABS: MEAN PLATELET VOLUME 10.8 fL (7.4-10.4); PLATELET COUNT 97 K/uL (130-400)
[2017-12-13 08:44] LABS: CALCIUM 8.1 mg/dl (8.5-10.1); CREATININE 1.3 mg/dl (0.60-1.40)
[2017-12-13] MEDS: SUCRALFATE 1 GM/10 ML UDC PO SCH ×4 (09:06→22:02)
[2017-12-13] MEDS: PANTOprazole SOD 40 MG TAB PO SCH ×2 (09:07→22:03)
[2017-12-13] MEDS: BUMETANIDE 1 MG TAB PO SCH (09:07)
[2017-12-13] MEDS: METOPROLOL SUCC 50MG EXT REL TAB PO SCH (09:07)
[2017-12-13] MEDS: GABAPENTIN 600 MG TAB PO SCH ×2 (09:07→22:03)
[2017-12-13] MEDS: ASPIRIN 81 MG ECTAB PO SCH (09:07)
[2017-12-13] MEDS: RANOLAZINE 500 MG ER TAB PO SCH ×2 (09:08→22:02)
[2017-12-13] MEDS: LISINOPRIL 2.5 MG TAB PO SCH (09:08)
[2017-12-13] MEDS: CITALOPRAM 20 MG TAB PO SCH (09:08)
[2017-12-13] MEDS: POTASSIUM CHLORIDE 20 MEQ TABCR PO SCH (09:08)
[2017-12-13] MEDS: ATORVASTATIN 20 MG TAB PO SCH (09:08)
--- NOTE | 2017-12-13 09:54 | CARDIOLOGY PROGRESS NOTE ---
DATE: 12/13/2017 SUBJECTIVE: Mr. Ruggiero is resting comfortably in bed without complaints of chest pain or dyspnea. Events of yesterday reviewed in detail. He has tolerated the addition of ranolazine without difficulty. I have discussed his numerous runs of ventricular tachycardia with Dr. Sanders. OBJECTIVE: VITAL SIGNS: Blood pressure 135/87 with a regular pulse of 65. Respiratory rate is 16. The patient is afebrile at 36.4 degrees Celsius. Saturations 96% on room air. NECK: Supple with full carotid upstrokes. There are no carotid bruits. Jugular venous pressure is flat at 90 degrees. There is no thyromegaly. CARDIOVASCULAR: Reveals a regular rhythm with distant heart sounds. No obvious murmurs. No S3. LUNGS: Clear without rales, rhonchi, or wheezes. ABDOMEN: Soft bruits. EXTREMITIES: Reveal intact radial artery pulses bilaterally. Left BKA noted. DATA: CBC notes hemoglobin of 14.3; hematocrit 42.4; white count 4.9; platelet count 97,000. Electrolytes: Sodium 135, potassium 4.0, chloride 101, hematocrit 29, BUN 23, creatinine 1.3, glucose 88. ekg monitor tech notes numerous runs of sustained ventricular tachycardia. The longest was approximately 6 minutes in length. IMPRESSION AND PLAN: 1. Chest pain syndrome -- as before, doubt this represents cardiac ischemia, however, the patient has known extensive coronary artery disease. Starting ranolazine. In the event, this could be angina pectoris. 2. Ischemic cardiomyopathy -- with ejection fraction of less than 20%. Nuclear stress test performed on 10/30/2017 noted extensive circumflex and right coronary artery infarction, however, no evidence of ischemia. 3. Coronary artery disease status post coronary artery bypass grafting x4 in 2009. Only the internal mammary artery was patent at the time of cardiac catheterization performed 5 years ago. 4. Recurrent ventricular tachycardia -- per Dr. Sanders. 5. Systolic congestive heart failure -- compensated. 6. Peripheral vascular disease status post left below-knee amputation.
[2017-12-13] MEDS ORDERED: SOTALOL HCL 80 MG TAB PO ONE (10:00)
[2017-12-13 10:42] VITALS: BP 116/77; PULSE 64; TEMP 36.4; O2SAT 96
--- NOTE | 2017-12-13 12:36 | Hospitalist Progress Note ---
Hospitalist Progress Note Date of Service Dec 13, 2017. (Charlene Guzmán ., GABBI) Subjective Pt evaluation today including: conversation w/ patient, physical exam, chart review, lab review, review of inpatient medication list Voiding: no voiding problems Mr. Ruggiero had a number of dysrhythmic events on the monitor over the night including a 4 minute run of Vtach. He thinks he might have had a little chest pain at one point but was largely asymptomatic. He only knew he was having dysrhythmia because nursing was checking on him. ROS Constitutional: no chills, aches, sweats or fever Respiratory: no sob,cough, sputum, or wheezing Cardiac: see HPI GI: no abdominal pain, nausea, vomiting, diarrhea or constipation : no dysuria or hesitancy Extremities: no joint pain or weakness Skin: no rash All other systems reviewed and negative (Charlene Guzmán CRNP) Medications Medications Administered Medications (Trade) Dose Ordered Sig/Maya Route Start Time Stop Time Status Last Admin Dose Admin Al Hydroxide/Mg Hydroxide (Maalox Susp) 15 ml NOW STAT PO 12/09/17 11:24 12/09/17 11:25 DC 12/09/17 11:24 15 ML Nitroglycerin (Nitroglycerin 2% Oint) 1 inch NOW ONCE EXT 12/09/17 13:00 12/09/17 13:01 DC 12/09/17 13:00 1 INCH Al Hydrox/Mg Hydrox/Simethicone (Maalox Max Susp) 15 ml Q4H PRN PO 12/09/17 15:00 01/08/18 14:59 12/11/17 18:11 15 ML Ondansetron HCl (Zofran Inj) 4 mg Q6H PRN IV 12/09/17 15:00 01/08/18 14:59 12/11/17 18:11 4 MG Nitroglycerin (Nitrostat Tab) 0.4 mg UD PRN SL 12/09/17 15:00 01/08/18 14:59 12/09/17 19:33 0.4 MG Aspirin (Ecotrin Tab) 81 mg DAILY PO 12/10/17 09:00 01/09/18 08:59 12/13/17 09:07 81 MG Atorvastatin Calcium (Lipitor Tab) 20 mg DAILY PO 12/10/17 09:00 01/09/18 08:59 12/13/17 09:08 20 MG Bumetanide (Bumex Tab) 1 mg DAILY PO 12/10/17 09:00 01/09/18 08:59 12/13/17 09:07 1 MG Citalopram Hydrobromide (celeXA TAB) 20 mg DAILY PO 12/10/17 09:00 01/09/18 08:59 12/13/17 09:08 20 MG Gabapentin (Neurontin Tab) 600 mg BID PO 12/09/17 21:00 01/08/18 20:59 12/13/17 09:07 600 MG Lisinopril (Zestril Tab) 2.5 mg DAILY PO 12/10/17 09:00 01/09/18 08:59 12/13/17 09:08 2.5 MG Lorazepam (Ativan Tab) 0.5 mg TID PRN PO 12/09/17 15:15 01/08/18 15:14 12/13/17 09:11 0.5 MG Metoprolol Succinate (Toprol Xl Tab) 50 mg DAILY PO 12/10/17 09:00 01/09/18 08:59 12/13/17 09:07 50 MG Oxycodone/ Acetaminophen (Percocet 5-325mg Tab) 1 tab Q6H PRN PO 12/09/17 15:15 12/23/17 15:14 12/12/17 10:59 1 TAB Pantoprazole Sodium (Protonix Tab) 40 mg DAILY PO 12/10/17 09:00 12/11/17 18:52 DC 12/11/17 08:51 40 MG Sotalol HCl (Betapace Tab) 80 mg BID PO 12/09/17 21:00 12/10/17 15:55 DC 12/10/17 07:50 80 MG Warfarin Sodium (Coumadin Tab) 3 mg DAILY@1600 PO 12/09/17 18:00 12/11/17 10:40 DC 12/09/17 18:42 3 MG Zolpidem Tartrate (Ambien Tab) 10 mg HS PRN PO 12/09/17 15:15 01/08/18 15:14 12/12/17 23:23 10 MG Potassium Chloride (Klor-Con Tab) 20 meq QAM PO 12/10/17 09:00 01/09/18 08:59 12/13/17 09:08 20 MEQ Morphine Sulfate (MoRPHine SULFATE INJ) 2 mg NOW STAT IV 12/09/17 15:09 12/09/17 15:16 DC 12/09/17 15:09 2 MG Ranitidine HCl (zANTac TAB) 150 mg BID PRN PO 12/11/17 16:30 01/10/18 16:29 12/12/17 08:03 150 MG Warfarin Sodium (Coumadin Tab) 3 mg DAILY@16 PO 12/12/17 16:00 01/11/18 15:59 12/12/17 16:06 3 MG Warfarin Sodium (Coumadin Tab) 3 mg 1830 ONCE PO 12/11/17 18:30 12/11/17 18:31 DC 12/11/17 18:29 3 MG Pantoprazole Sodium (Protonix Tab) 40 mg BID PO 12/11/17 21:00 01/09/18 08:59 12/13/17 09:07 40 MG Sucralfate (Carafate Susp) 1 gm QID PO 12/11/17 21:00 01/10/18 20:59 12/13/17 09:06 1 GM Ranolazine (Ranexa ER Tab) 500 mg BID PO 12/12/17 21:00 01/11/18 20:59 12/13/17 09:08 500 MG Sotalol HCl (Betapace Tab) 80 mg NOW ONCE PO 12/13/17 10:00 12/13/17 10:01 DC 12/13/17 10:14 80 MG (Charlene Guzmán, GABBI) Objective Vital Signs Date Time Temp Pulse Resp B/P (MAP) Pulse Ox O2 Delivery O2 Flow Rate FiO2 12/13/17 10:42 36.4 64 20 116/77 (90) 96 Room Air 12/13/17 09:05 Room Air 12/13/17 06:52 36.4 65 16 135/87 (103) 96 Room Air 12/13/17 03:00 36.9 60 18 100/66 (77) 94 Room Air 12/13/17 00:04 Room Air 12/12/17 23:59 36.7 71 18 99/68 (78) 92 Room Air 12/12/17 19:47 36.5 73 18 91/55 (67) 95 Room Air 12/12/17 19:31 94 Room Air 12/12/17 15:39 67 94 12/12/17 15:00 36.7 81 18 94/60 (71) 92 Room Air (Charlene Guzmán CRNP) Physical Exam Notes: General: no distress Eyes: normal inspection, PERLL Respiratory: chest non tender, clear to auscultation, normal breath sounds, no respiratory distress, no accessory muscle use Cardiac: regular rate and rhythm, no rub or gallop, no murmur, no edema, no jvd GI/: active bowel sounds, no abd pain or tenderness, soft, non distended Extremities: normal range of motion, normal strength, non tender Neuro/Psych: alert and oriented x 3, normal mood and affect Skin: normal color, dry (Charlene Guzmán CRNP) Laboratory Results Last 24 Hours Test 12/13/17 08:01 White Blood Count 4.95 K/uL Red Blood Count 4.66 M/uL Hemoglobin 14.3 g/dL Hematocrit 42.4 % Mean Corpuscular Volume 91.0 fL Mean Corpuscular Hemoglobin 30.7 pg Mean Corpuscular Hemoglobin Concent 33.7 g/dl RDW Standard Deviation 43.6 fL RDW Coefficient of Variation 13.2 % Platelet Count 97 K/uL Mean Platelet Volume 10.8 fL Sodium Level 135 mmol/L Potassium Level 4.0 mmol/L Chloride Level 101 mmol/L Carbon Dioxide Level 29 mmol/L Anion Gap 5.0 mmol/L Blood Urea Nitrogen 23 mg/dl Creatinine 1.30 mg/dl Est Creatinine Clear Calc Drug Dose 60.0 ml/min Estimated GFR () 65.0 Estimated GFR (Non- 56.1 BUN/Creatinine Ratio 17.5 Random Glucose 88 mg/dl Calcium Level 8.1 mg/dl Magnesium Level 2.6 mg/dl (Charlene Guzmán CRNP) Assessment and Plan Mr. Ruggiero is a 66 y/o male here with chest pain. Chest pain - troponins negative x3 -Echo shows EF 15-20% with severe global hypokinesis of LV. Moderately dilated RV. RV systolic function moderately reduced. Mild mitral regurgitation. Grade III diastolic dysfunction/restrictive diastolic filling. Mild pulmonary HTN. PASP 40-45 mmHg. No significant change from 01/26/17 study. -Nitro SL prn -Consulted cardiology: no plan for cath, no stress testing at this time, pt had a normal stress test during recent admission in [place]. Cardiology to restart patient's sotalol due to V tach over the night -Fasting lipid panel shows triglycerides 210, total cholesterol 110, non-HDL 81 -EKG q am and prn chest pain -CTA chest negative for dissection and PE - tolerating ranolazine started last evening CAD, h/o ID, HLD -Continue ASA, Toprol XL 50 mg PO qd, lisinopril 2.5 mg PO qd, Lipitor 20 mg PO qd A-flutter, h/o v-tach s/p ablation, pacemaker/defibrillator--stable -Pacemaker working appropriately per cardio -Continue Toprol - continue warfarin, INR in am Chronic systolic CHF--stable, no acute exacerbation -Continue metoprolol, RUFINO, - continue Bumex Pulmonary nodule -10 mm pulmonary nodule in right lung base, seen previously [place] [address] Recommend f/u in 6 months Anxiety, depression, phantom pain -Continue Celexa 20 mg PO qd, Ativan 0.5 mg PO TID prn anxiety, gabapentin 600 mg PO BID RHIANNA -CPAP Chronic reflux esophagitis- - protonix increased to bid, ranitidine prn, sucralfate qid DVT prophylaxis -Warfarin therapeutic -LUCIA hose and SCDs Code Status -Level V, DO NOT RESUSCITATE (Charlene Guzmán ., GABBI) HAIRSPRING SETTER Physician Supervision Note: I discussed with Charlene Guzmán HAIRSPRING SETTER and agree with findings and plan as documented in the note. Any exceptions or clarifications are listed here: None Patient has tolerated Ranexa however did have some escalating episodes of VT cardiology is deciding of antiarrhythmic agent Documented By: Jonel Daugherty (Jonel Daugherty M.D.)
[2017-12-13 15:35] VITALS: BP 112/70; PULSE 63; TEMP 36.5; O2SAT 95
[2017-12-13] MEDS: WARFARIN SOD 3 MG TAB PO SCH (16:11)
[2017-12-13 19:05] VITALS: BP 99/59; PULSE 63; TEMP 36.7; O2SAT 96
[2017-12-13] MEDS: SOTALOL HCL 80 MG TAB PO SCH (22:02)
[2017-12-13] MEDS: ZOLPIDEM TARTRATE 10 MG TAB PO PRN (23:03)
[2017-12-13 23:40] VITALS: BP 113/67; PULSE 60; TEMP 36.6; O2SAT 96
[2017-12-14 03:45] VITALS: BP 113/70; PULSE 60; TEMP 36.3; O2SAT 93
[2017-12-14 06:57] VITALS: BP 117/72; PULSE 60; TEMP 36.4; O2SAT 96
[2017-12-14 07:24] LABS: HEMATOCRIT 43.8 % (42-52); HEMOGLOBIN 14.5 g/dL (14.0-18.0); MEAN CELL VOLUME 91.1 fL (80-100); MEAN CORPUSCULAR HEMOGLOBIN 30.1 pg (25-34); MEAN CORPUSCULAR HGB CONC 33.1 g/dl (32-36); RED CELL DISTRIBUTION WIDTH CV 13.3 % (11.5-14.5); RED CELL DISTRIBUTION WIDTH SD 44.1 fL (36.4-46.3); WHITE BLOOD COUNT 4.34 K/uL (4.8-10.8)
[2017-12-14 07:30] LABS: MEAN PLATELET VOLUME 11.4 fL (7.4-10.4); PLATELET COUNT 99 K/uL (130-400)
[2017-12-14] MEDS: ATORVASTATIN 20 MG TAB PO SCH (07:44)
[2017-12-14] MEDS: CITALOPRAM 20 MG TAB PO SCH (07:45)
[2017-12-14] MEDS: PANTOprazole SOD 40 MG TAB PO SCH ×2 (07:45→20:36)
[2017-12-14] MEDS: METOPROLOL SUCC 50MG EXT REL TAB PO SCH (07:45)
[2017-12-14] MEDS: BUMETANIDE 1 MG TAB PO SCH (07:45)
[2017-12-14 07:46] LABS: INR 3.7 (0.9-1.1)
[2017-12-14] MEDS: POTASSIUM CHLORIDE 20 MEQ TABCR PO SCH (07:48)
[2017-12-14] MEDS: SOTALOL HCL 80 MG TAB PO SCH ×2 (07:48→20:36)
[2017-12-14] MEDS: ASPIRIN 81 MG ECTAB PO SCH (07:48)
[2017-12-14] MEDS: GABAPENTIN 600 MG TAB PO SCH ×2 (07:48→20:36)
[2017-12-14] MEDS: LISINOPRIL 2.5 MG TAB PO SCH (07:49)
[2017-12-14] MEDS: SUCRALFATE 1 GM/10 ML UDC PO SCH ×4 (07:49→20:36)
[2017-12-14] MEDS ORDERED: ACETAMINOPHEN 325 MG TAB ONE (07:52)
[2017-12-14 07:55] LABS: CALCIUM 8.3 mg/dl (8.5-10.1); CREATININE 1.2 mg/dl (0.60-1.40)
[2017-12-14] MEDS ORDERED: ACETAMINOPHEN 325 MG TAB PO PRN (08:00)
[2017-12-14] MEDS ORDERED: COLCHICINE 0.6 MG TAB PO ONE (09:45)
--- NOTE | 2017-12-14 10:10 | Hospitalist Progress Note ---
Hospitalist Progress Note Date of Service Dec 14, 2017. (Charlene Guzmán CRNP) Subjective Pt evaluation today including: conversation w/ patient, physical exam, chart review, lab review, review of inpatient medication list Voiding: no voiding problems Mr. Ruggiero and his are very concerned about his chest pain which has continued to come and go at rest and with activity. His is concerned that if he goes home he will just develop chest pain again and have to come back in. Dr. Schwarz and myself were both bedside and had a long discussion with patient concerning workup so far and possible further workup. Patient has also developed tinnitus which he is concerned is due to the Ranexa that was started yesterday. No events on the monitor overnight, paced without arrhythmia ROS Constitutional: no chills, aches, sweats or fever Respiratory: no sob,cough, sputum, or wheezing Cardiac: no palpitations, edema, orthopnea or lightheadedness GI: no abdominal pain, nausea, vomiting, diarrhea or constipation : no dysuria or hesitancy Extremities: no joint pain or weakness Skin: no rash All other systems reviewed and negative (Charlene Guzmán CRNP) Medications Medications Administered Medications (Trade) Dose Ordered Sig/Maya Route Start Time Stop Time Status Last Admin Dose Admin Al Hydroxide/Mg Hydroxide (Maalox Susp) 15 ml NOW STAT PO 12/09/17 11:24 12/09/17 11:25 DC 12/09/17 11:24 15 ML Nitroglycerin (Nitroglycerin 2% Oint) 1 inch NOW ONCE EXT 12/09/17 13:00 12/09/17 13:01 DC 12/09/17 13:00 1 INCH Al Hydrox/Mg Hydrox/Simethicone (Maalox Max Susp) 15 ml Q4H PRN PO 12/09/17 15:00 01/08/18 14:59 12/11/17 18:11 15 ML Ondansetron HCl (Zofran Inj) 4 mg Q6H PRN IV 12/09/17 15:00 01/08/18 14:59 12/11/17 18:11 4 MG Nitroglycerin (Nitrostat Tab) 0.4 mg UD PRN SL 12/09/17 15:00 01/08/18 14:59 12/09/17 19:33 0.4 MG Aspirin (Ecotrin Tab) 81 mg DAILY PO 12/10/17 09:00 01/09/18 08:59 12/14/17 07:48 81 MG Atorvastatin Calcium (Lipitor Tab) 20 mg DAILY PO 12/10/17 09:00 01/09/18 08:59 12/14/17 07:44 20 MG Bumetanide (Bumex Tab) 1 mg DAILY PO 12/10/17 09:00 01/09/18 08:59 12/14/17 07:45 1 MG Citalopram Hydrobromide (celeXA TAB) 20 mg DAILY PO 12/10/17 09:00 01/09/18 08:59 12/14/17 07:45 20 MG Gabapentin (Neurontin Tab) 600 mg BID PO 12/09/17 21:00 01/08/18 20:59 12/14/17 07:48 600 MG Lisinopril (Zestril Tab) 2.5 mg DAILY PO 12/10/17 09:00 01/09/18 08:59 12/14/17 07:49 2.5 MG Lorazepam (Ativan Tab) 0.5 mg TID PRN PO 12/09/17 15:15 01/08/18 15:14 12/13/17 16:11 0.5 MG Metoprolol Succinate (Toprol Xl Tab) 50 mg DAILY PO 12/10/17 09:00 01/09/18 08:59 12/14/17 07:45 50 MG Oxycodone/ Acetaminophen (Percocet 5-325mg Tab) 1 tab Q6H PRN PO 12/09/17 15:15 12/23/17 15:14 12/12/17 10:59 1 TAB Pantoprazole Sodium (Protonix Tab) 40 mg DAILY PO 12/10/17 09:00 12/11/17 18:52 DC 12/11/17 08:51 40 MG Sotalol HCl (Betapace Tab) 80 mg BID PO 12/09/17 21:00 12/10/17 15:55 DC 12/10/17 07:50 80 MG Warfarin Sodium (Coumadin Tab) 3 mg DAILY@1600 PO 12/09/17 18:00 12/11/17 10:40 DC 12/09/17 18:42 3 MG Zolpidem Tartrate (Ambien Tab) 10 mg HS PRN PO 12/09/17 15:15 01/08/18 15:14 12/13/17 23:03 10 MG Potassium Chloride (Klor-Con Tab) 20 meq QAM PO 12/10/17 09:00 01/09/18 08:59 12/14/17 07:48 20 MEQ Morphine Sulfate (MoRPHine SULFATE INJ) 2 mg NOW STAT IV 12/09/17 15:09 12/09/17 15:16 DC 12/09/17 15:09 2 MG Ranitidine HCl (zANTac TAB) 150 mg BID PRN PO 12/11/17 16:30 01/10/18 16:29 12/12/17 08:03 150 MG Warfarin Sodium (Coumadin Tab) 3 mg DAILY@16 PO 12/12/17 16:00 01/11/18 15:59 Future Hold 12/13/17 16:11 3 MG Warfarin Sodium (Coumadin Tab) 3 mg 1830 ONCE PO 12/11/17 18:30 12/11/17 18:31 DC 12/11/17 18:29 3 MG Pantoprazole Sodium (Protonix Tab) 40 mg BID PO 12/11/17 21:00 01/09/18 08:59 12/14/17 07:45 40 MG Sucralfate (Carafate Susp) 1 gm QID PO 12/11/17 21:00 01/10/18 20:59 12/14/17 07:49 1 GM Ranolazine (Ranexa ER Tab) 500 mg BID PO 12/12/17 21:00 12/14/17 09:47 DC 12/13/17 22:02 500 MG Sotalol HCl (Betapace Tab) 80 mg NOW ONCE PO 12/13/17 10:00 12/13/17 10:01 DC 12/13/17 10:14 80 MG Sotalol HCl (Betapace Tab) 80 mg BID PO 12/13/17 21:00 01/12/18 20:59 12/14/17 07:48 80 MG Acetaminophen (Tylenol Tab) 650 mg Q4H PRN PO 12/14/17 08:00 01/13/18 07:59 12/14/17 07:54 650 MG (Charlene Guzmán CRNP) Objective Vital Signs Date Time Temp Pulse Resp B/P (MAP) Pulse Ox O2 Delivery O2 Flow Rate FiO2 12/14/17 08:00 Room Air 12/14/17 06:57 36.4 60 18 117/72 (87) 96 Room Air 12/14/17 03:45 36.3 60 17 113/70 (84) 93 Room Air 12/13/17 23:59 Room Air 12/13/17 23:40 36.6 60 20 113/67 (82) 96 Room Air 12/13/17 19:30 Room Air 12/13/17 19:05 36.7 63 18 99/59 (72) 96 Room Air 12/13/17 16:30 Room Air 12/13/17 15:35 36.5 63 18 112/70 (84) 95 Room Air 12/13/17 10:42 36.4 64 20 116/77 (90) 96 Room Air (Charlene Guzmán CRNP) Physical Exam Notes: General: no distress Eyes: normal inspection, PERLL Respiratory: chest non tender, clear to auscultation, normal breath sounds, no respiratory distress, no accessory muscle use Cardiac: regular rate and rhythm, no rub or gallop, no murmur, no edema, no jvd GI/: active bowel sounds, no abd pain or tenderness, soft, non distended Extremities: normal range of motion, normal strength, non tender Neuro/Psych: alert and oriented x 3, normal mood and affect Skin: normal color, dry (Charlene Guzmán CRNP) Laboratory Results Last 24 Hours Test 12/14/17 06:54 White Blood Count 4.34 K/uL Red Blood Count 4.81 M/uL Hemoglobin 14.5 g/dL Hematocrit 43.8 % Mean Corpuscular Volume 91.1 fL Mean Corpuscular Hemoglobin 30.1 pg Mean Corpuscular Hemoglobin Concent 33.1 g/dl RDW Standard Deviation 44.1 fL RDW Coefficient of Variation 13.3 % Platelet Count 99 K/uL Mean Platelet Volume 11.4 fL Prothrombin Time 37.5 SECONDS Prothromb Time International Ratio 3.7 Sodium Level 139 mmol/L Potassium Level 4.0 mmol/L Chloride Level 104 mmol/L Carbon Dioxide Level 28 mmol/L Anion Gap 7.0 mmol/L Blood Urea Nitrogen 22 mg/dl Creatinine 1.20 mg/dl Est Creatinine Clear Calc Drug Dose 65.6 ml/min Estimated GFR () 71.6 Estimated GFR (Non- 61.8 BUN/Creatinine Ratio 18.6 Random Glucose 85 mg/dl Calcium Level 8.3 mg/dl (Charlene Guzmán ., GABBI) Assessment and Plan Mr. Ruggiero is a 66 y/o male here with chest pain. Chest pain - troponins negative x3 -Echo shows EF 15-20% with severe global hypokinesis of LV. Moderately dilated RV. RV systolic function moderately reduced. Mild mitral regurgitation. Grade III diastolic dysfunction/restrictive diastolic filling. Mild pulmonary HTN. PASP 40-45 mmHg. No significant change from 01/26/17 study. -Consulted cardiology: no plan for cath, no stress testing at this time, pt had a normal stress test during recent admission in [place]. Cardiology to restart patient's sotalol due to V tach two nights ago -Fasting lipid panel shows triglycerides 210, total cholesterol 110, non-HDL 81 -CTA chest negative for dissection and PE - discontinue ranolazine due to tinnitus - Per , start colchicine to evaluate/treat for pericarditis due to pacer lead placement. Unclear if this the source of chest pain but is possible given everything else cardiac that has been ruled out. Will also hold warfarin as patient is supratherapeutic and also in preparation for outpatient follow up with GI to evaluate for GI source of chest pain incase scope is necessary. Agree with Dr. Schwarz that patient is relatively low risk for thrombus with warfarin held as he has not been in A.fib, just pacing - encouraged frequent ambulation, patient tolerated PT well. CAD, h/o SD, HLD -Continue ASA, Toprol XL 50 mg PO qd, lisinopril 2.5 mg PO qd, Lipitor 20 mg PO qd A-flutter, h/o v-tach s/p ablation, pacemaker/defibrillator--stable -Pacemaker working appropriately per cardio -Continue Toprol - hold coumadin, INR supratherapeutic Chronic systolic CHF--stable, no acute exacerbation -Continue metoprolol, RUFINO, - continue Bumex Pulmonary nodule -10 mm pulmonary nodule in right lung base, seen [place] [address] Recommend f/u in 6 months Anxiety, depression, phantom pain -Continue Celexa 20 mg PO qd, Ativan 0.5 mg PO TID prn anxiety, gabapentin 600 mg PO BID RHIANNA -CPAP Chronic reflux esophagitis- - protonix increased to bid, ranitidine prn, sucralfate qid DVT prophylaxis -Warfarin supratherapeutic - on hold -LUCIA [place] and SCDs Code Status -Level V, DO NOT RESUSCITATE (Charlene Guzmán ., GABBI) LUMP RECEIVER Physician Supervision Note: I discussed with Charlene Guzmán LUMP RECEIVER and agree with findings and plan as documented in the note. Any exceptions or clarifications are listed here: None Patient has some nausea with Ranexa however did have some escalating episodes of VT cardiology has decided in sotolol and is trying to use colchicine for the chance of pericarditis Documented By: Jonel Daugherty (Jonel Daugherty M.D.)
[2017-12-14 11:21] VITALS: BP 101/67; PULSE 67; TEMP 36.8; O2SAT 95
[2017-12-14] MEDS: OXYCODONE/ACETAMINOPHEN 5-325 TAB PO PRN (14:34)
[2017-12-14 14:43] VITALS: BP 107/69; PULSE 70; TEMP 36.3; O2SAT 95
[2017-12-14 19:16] VITALS: BP 94/63; PULSE 61; TEMP 36.6; O2SAT 94
[2017-12-14] MEDS: COLCHICINE 0.6 MG TAB PO SCH (20:37)
[2017-12-14] MEDS: LORAZEPAM 0.5 MG TAB PO PRN (20:41)
--- NOTE | 2017-12-14 21:33 | Cardiology Follow-Up ---
Subjective Date of Service: Dec 14, 2017. Pt evaluation today including: conversation w/ patient, conversation w/ family , physical exam, lab review, review of inpatient medication list, conversation w / attending History of Present Illness This is a very pleasant 66-year-old gentleman who has a long history of coronary artery disease with myocardial infarction 2002, bypass surgery that year, and resultant severe ischemic cardiomyopathy. He has had sustained ventricular tachycardia with treatment at [facility] including ablation of his ventricular tachycardia on January 08, 2010 and ICD implantation on January 14, 2010.. He then presented to [facility] on January 20, 2010 in sustained ventricular tachycardia, this was below the rate cut off of the device and after adjustment the device terminated the arrhythmia however it required an ICD shock as antitachycardia pacing did not work. He was subsequently transferred to [facility] for repeat ablation but an atrial clot was identified on echocardiography and therefore ablation could not be performed at that time. He presented again in sustained ventricular tachycardia to [facility] on February 27, 2010. He was transferred again down to [facility] on February 27, 2010 and was hospitalized there until discharge on March 05, 2010. Dr. Velarde was able to perform ventricular tachycardia ablation however there was difficulty in obtaining a good result. He was then as started on Tikosyn 500 mg twice a day. He did well for about 6 months, he then had recurrent ventricular tachycardia in August 2010 and subsequently had several episodes of ventricular tachycardia in the VF zone requiring ICD shock as well as visits to the emergency room. In the past his ventricular tachycardia had been very slow, in the range of 110 beats per minute, however he had several episodes that were much faster, with the rate around 200 beats per minute and he received a shock for that. He was hospitalized in mid November 2010 for recurrent ventricular tachycardia and his Tikosyn was discontinued and replaced with mexiletine after discussion with [facility]. His atrial pacing rate was increased to 90 beats per minute. On discussion with [facility] apparently the tachycardia originated from the septum and they did not feel that they could approach it with a further ablation procedure. Their suggestion was to continue the current medical regimen. However he had further episodes, he was evaluated at the [facility] however for various reasons that procedure was never scheduled, in part because he had difficulty with a nonhealing foot infection and eventually underwent left leg amputation. Eventually his ablation was performed at [facility] on 09/26/2011. I believe they did not feel the odds were great that they were successful, and apparently he had another event the evening after the ablation, and he was discharged on mexiletine 150 mg t.i.d. He did well for several years however so the procedure must have been more successful than was initially thought. He has had rare episodes of VT treated appropriately by his device and had been maintained on Mexiletine. That was working adequately well until he was admitted 11/01/2013 with more VT requiring ICD shocks, this tachycardia however was different and faster (CL 360), did not respond to ATP but did respond to ICD shock. He lost consciousness once because he was standing during the episode. There is no clear reason for his recurrent VT, he did not infarct, meds had not changed, electrolytes were not far off, LVEF was stable and he had not had recurrent infarction and no evidence of CHF by CXR or symptoms. I think he unfortunately developed a new form of VT, which was faster. He was started on amiodarone. His original ICD reached [facility] and was replaced on 01/08/2014 using the original leads. 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 His amiodarone was discontinued, and after about one month Multaq was started on 01/26/2016. 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 Multaq seemed to have provided adequate suppression of his ventricular arrhythmia for some time, however around November and December 2016 he developed increasing frequency of ventricular tachycardia as well as ICD shocks. We tried programming around this , however he ended up in the [facility] in late December 2016 for frequent ICD shocks. In addition, ICD interrogation had demonstrated several months of atrial fibrillation in summer, we therefore performed cardioversion using his ICD (after failure of atrial antitachycardia algorithms ) on 11/18/2016. He was hospitalized for increasing ventricular tachycardia in January of 2017. We could not control the tachycardia adequately therefore he was sent to [place] for ablation. Ablation was performed on 02/02/2017 and he was discharged several days later. He was discharged on mexiletine alone as an antiarrhythmic. He had recurrent atrial fibrillation and had cardioversion performed on May 15, 2017.He was observed on June 26, 2017 to have episodes of ventricular tachycardia at a slow heart rate, he was unaware of this therefore we left things alone. He had not received ICD shocks at that time. He then presented October 28, 2017 with recurrent frequent episodes of ventricular tachycardia, many of the ventricular tachycardia episodes were terminated by antitachycardia pacing however one did degenerate into ventricular fibrillation and required an ICD shock. Amiodarone therapy was instituted, however with his history that was not a viable long-term option. He was therefore transferred to [place] where ablation was performed, they felt successfully although the site of ablation was on the septum and this resulted in complete heart block. Since he was now pacemaker dependent he underwent upgrade of his ICD to a biventricular ICD on November 07, 2017. He was discharged on sotalol. He returned approximately 10 days following discharge from [place], he had not had any ventricular arrhythmias but we continued his sotalol. He did note however that he has a burning sensation across both shoulders which sounds anginal, it is triggered by activity, he stops what he is doing and it improves in several minutes but does not resolve for 10 or 15 minutes generally. Interestingly this was improving and he had not taken nitroglycerin for it, therefore he elected to watch. Of note he had a nuclear stress test on October 30, [address] [facility] which showed an extensive circumflex and right coronary artery infarct with no ischemia, ejection fraction felt to be 20%. He now returns however with worsening of this discomfort. It is very frequent prior to admission, it is sometimes a pins and needles sensation across his chest and down both arms and the back of his neck, at other times it is a more severe chest discomfort and it has lasted a substantial length of time although he is very vague about the duration. The episode that prompted his visit to the emergency room on December 09, 2017 sounds like it lasted at least an hour. Enzymes were negative and it seems unlikely the chest pain is cardiac. It is conceivably inflammatory, possibly from his device upgrade which required a new lead. We can try Colchicine. He had a slow VT (rate about 110), asymptomatic, but he will likely need an antiarrhythmic for his AF and VT. Social History Smoking Status: Former Smoker History of Alcohol Use: No Review of Systems Respiratory: + cough, + shortness of breath, + dyspnea on exertion Cardiac: + see HPI, + chest pain, No palpitations Objective Vital Signs Past 12 Hours Date Time Temp Pulse Resp B/P (MAP) Pulse Ox O2 Delivery O2 Flow Rate FiO2 12/14/17 20:00 Room Air 12/14/17 19:16 36.6 61 20 94/63 (73) 94 Room Air 12/14/17 14:43 36.3 70 18 107/69 (82) 95 12/14/17 11:21 36.8 67 18 101/67 (78) 95 Last Recorded Weight-Kilograms: 90.800 Intake & Output 8-Hour Column 12/14/17 12/15/17 12/15/17 16:00 00:00 08:00 Intake Total 550 ml Output Total 150 ml Balance 400 ml 24-Hour Column 12/15/17 08:00 Intake Total 550 ml Output Total 150 ml Balance 400 ml Physical Exam Constitutional: General Apperance: heathly-appearing Level of Distress: NAD Lungs: Respiratory effort: no dyspnea, good air movement Auscultation: breath sounds normal, no wheezing Cardiovascular: Heart Auscultation: RRR, no murmurs, no rubs, no gallops Peripheral Pulses: Bruits: none appreciated Extremities: no edema Data Laboratory Results: Last 24 Hours Test 12/14/17 06:54 White Blood Count 4.34 K/uL Red Blood Count 4.81 M/uL Hemoglobin 14.5 g/dL Hematocrit 43.8 % Mean Corpuscular Volume 91.1 fL Mean Corpuscular Hemoglobin 30.1 pg Mean Corpuscular Hemoglobin Concent 33.1 g/dl RDW Standard Deviation 44.1 fL RDW Coefficient of Variation 13.3 % Platelet Count 99 K/uL Mean Platelet Volume 11.4 fL Prothrombin Time 37.5 SECONDS Prothromb Time International Ratio 3.7 Sodium Level 139 mmol/L Potassium Level 4.0 mmol/L Chloride Level 104 mmol/L Carbon Dioxide Level 28 mmol/L Anion Gap 7.0 mmol/L Blood Urea Nitrogen 22 mg/dl Creatinine 1.20 mg/dl Est Creatinine Clear Calc Drug Dose 65.6 ml/min Estimated GFR () 71.6 Estimated GFR (Non- 61.8 BUN/Creatinine Ratio 18.6 Random Glucose 85 mg/dl Calcium Level 8.3 mg/dl Imaging: EKG: Telemetry reviewed: No VT Assessment and Plan #1. Chest discomfort: He describes chest burning with exertion as well as at rest which could be anginal. He has had somewhat prolonged episodes that are increasing in frequency and yet he has not had any enzyme abnormalities. He also had a negative (for ischemia) stress test about a month and a half ago (a nuclear stress test in [place]). He of course has known coronary artery disease. We could perform catheterization, although be nice to have something objective before doing so. I am not convinced that his discomfort is anginal although it is possible. I would like to keep him n.p.o. for possible catheterization tomorrow, although I am not sure we will do it but will discuss him with my partners. #2. Biventricular ICD: His ICD is functioning well, device interrogation demonstrates no ventricular tachycardia. He has not had any atrial fibrillation , battery voltages good. He is AV pacing virtually all of the time. This is appropriate function. #3. Ventricular tachycardia: He has had recurrent VT, but at a slow rate and asymptomatic. I don't know if Sotalol was suppressing this arrhythmia.. #4. Chronic systolic heart failure: He has not had worsening of his heart failure symptoms with ventricular pacing, hopefully he will continue to do well in that regard since he is pacer dependent now. His current presentation does not appear to be due to heart failure. #5. Atrial flutter: He has had no further atrial fibrillation or atrial flutter since device implantation. He does need to continue with warfarin, although I would hold it for the possibility of an upcoming GI evaluation.
[2017-12-14 22:17] VITALS: BP 107/74; PULSE 75; TEMP 36.7; O2SAT 95
[2017-12-14] MEDS: ZOLPIDEM TARTRATE 10 MG TAB PO PRN (22:48)
[2017-12-14] MEDS: ALUMINUM/MAGNESIUM/SIMETH (MAALOX MAX) 30 ML UDC PO PRN (22:48)
[2017-12-15 00:06] VITALS: BP 96/68; PULSE 118; TEMP 36.8; O2SAT 96
[2017-12-15 03:45] VITALS: BP 99/62; PULSE 60; TEMP 36.4; O2SAT 96
[2017-12-15 05:46] LABS: HEMATOCRIT 42.6 % (42-52); HEMOGLOBIN 14.6 g/dL (14.0-18.0); MEAN CELL VOLUME 91.6 fL (80-100); MEAN CORPUSCULAR HEMOGLOBIN 31.4 pg (25-34); MEAN CORPUSCULAR HGB CONC 34.3 g/dl (32-36); MEAN PLATELET VOLUME 11.3 fL (7.4-10.4); PLATELET COUNT 110 K/uL (130-400); RED CELL DISTRIBUTION WIDTH CV 13.3 % (11.5-14.5); RED CELL DISTRIBUTION WIDTH SD 44.2 fL (36.4-46.3); WHITE BLOOD COUNT 4.76 K/uL (4.8-10.8)
[2017-12-15 05:53] LABS: INR 3.3 (0.9-1.1)
[2017-12-15 06:13] LABS: CALCIUM 8.3 mg/dl (8.5-10.1); CREATININE 1.41 mg/dl (0.60-1.40); POTASSIUM 4.1 mmol/L (3.5-5.1)
[2017-12-15 06:52] VITALS: BP 102/63; PULSE 59; TEMP 36.4; O2SAT 95
[2017-12-15] MEDS: CITALOPRAM 20 MG TAB PO SCH (08:03)
[2017-12-15] MEDS: METOPROLOL SUCC 50MG EXT REL TAB PO SCH (08:03)
[2017-12-15] MEDS: PANTOprazole SOD 40 MG TAB PO SCH (08:03)
[2017-12-15] MEDS: BUMETANIDE 1 MG TAB PO SCH (08:03)
[2017-12-15] MEDS: ATORVASTATIN 20 MG TAB PO SCH (08:03)
[2017-12-15] MEDS: SUCRALFATE 1 GM/10 ML UDC PO SCH (08:03)
[2017-12-15] MEDS: COLCHICINE 0.6 MG TAB PO SCH (08:04)
[2017-12-15] MEDS: ASPIRIN 81 MG ECTAB PO SCH (08:04)
[2017-12-15] MEDS: GABAPENTIN 600 MG TAB PO SCH (08:04)
[2017-12-15] MEDS: POTASSIUM CHLORIDE 20 MEQ TABCR PO SCH (08:04)
[2017-12-15] MEDS: LISINOPRIL 2.5 MG TAB PO SCH (08:04)
[2017-12-15] MEDS: SOTALOL HCL 80 MG TAB PO SCH (08:04)
[2017-12-15] MEDS ORDERED: PANT40TA2 PO (09:18)
[2017-12-15] MEDS ORDERED: CRFUDL PO (09:18)
[2017-12-15] MEDS ORDERED: ZNT150 PO (09:18)
[2017-12-15] MEDS ORDERED: CLC6 PO (09:18)
--- NOTE | 2017-12-15 09:30 | Discharge Instructions ---
Discharge Instructions Date of Service Dec 15, 2017. Admission Reason for Admission: Chest Pain Discharge Discharge Diagnosis / Problem: chest pain Discharge Goals Goal(s): Decrease discomfort Activity Recommendations Activity Limitations: resume your previous activity Exercise/Sports Limitations: gradually increase as tolerated . Instructions / Follow-Up Instructions / Follow-Up Please hold your warfarin until you see GI on Monday. You should ask them about timing of restarting because they will want to time it around any interventions such as endoscopy. Please have your blood work drawn on Monday. Your results will go to Dr. Jakub Angulo. Your chest pain does not appear to be due to a cardiac event such as a heart attack or because your heart is not getting enough oxygen. If this were the case we would expect to see your cardiac markers go up which they did not. Your CT scan of your chest also did not show any pulmonary embolus or aneurysm of the thoracic aorta. You were started on colchicine in case there is an inflammation of the lining of your heart card called pericarditis that is causing your pain. You will continue this medication for 3-6 month. You will also see a GI specialist on Monday as chest pain can sometimes be caused by something in the gastrointestinal tract. Current Hospital Diet Patient's current hospital diet: AHA Diet (Heart Healthy) Discharge Diet Recommended Diet: AHA Diet (Heart Healthy) Procedures Procedures Performed: CT Chest Chest Xray Pending Studies Studies pending at discharge: no Laboratory Results Lipid Panel Test 12/10/17 03:26 Range/Units Triglycerides Level 210 H 0-150 mg/dl Cholesterol Level 110 0-200 mg/dl HDL Cholesterol 29 mg/dl Cholesterol/HDL Ratio 3.8 LDL Cholesterol, Calculated 39 mg/dl Medical Emergencies . Who to Call and When: Medical Emergencies: If at any time you feel your situation is an emergency, please call 911 immediately. . Non-Emergent Contact Non-Emergency issues call your: Primary Care Provider Call Non-Emergent contact if: you have a fever, your pain is not controlled, you have any medication questions . . "Provider Documentation" section prepared by Charlene Guzmán. .
--- NOTE | 2017-12-15 09:49 | Discharge Summary ---
Discharge Summary Date of Service Dec 15, 2017. Discharge Summary Admission Date: Dec 10, 2017 at 12:02 Discharge Date: Dec 15, 2017 Discharge Disposition: Home Principal Diagnosis: Chest pain Problems/Secondary Diagnoses: CAD, h/o [place], HLD, A-flutter, h/o v-tach s/p ablation, pacemaker/defibrillator, Chronic systolic CHF, Pulmonary nodule, Anxiety, depression, phantom pain, RHIANNA, Chronic reflux esophagitis Immunizations: Have You Had Influenza Vaccine: Yes Influenza Vaccine Date: Feb 04, 2012 History of Tetanus Vaccine?: Yes Tetanus Immunization Date: Jan 19, 2006 History of Pneumococcal: Yes Pneumococcal Date: Jan 19, 2007 History of Hepatitis B Vaccine: Unknown Procedures: CT ANGIOGRAM OF THE CHEST COMBO IMPRESSION: 1. There is no aneurysm or dissection identified involving the thoracic aorta. 2. Cardiomegaly and AICD. 3. There is no evidence of pulmonary embolus in the main, lobar, or segmental pulmonary arteries. 4. Emphysema. 5. There is no airspace consolidation or pleural effusion. Mild diffuse peribronchial thickening suggests reactive disease. Clinical correlation will be required. 6. There is a 10 mm pulmonary nodule at the right lung base. This was also seen on the [address] An additional 6 month follow-up examination is recommended for reassessment. 7. A 1.3 cm ovoid cystic lesion in the distal pancreatic body is typical in appearance for a sidebranch IPMN. 8. Splenomegaly. 9. Additional findings as above. Electronically signed by: Rohit Wilkinson M.D. 12/09/2017 6:11 PM Consultations: Dr. Sanders and Dr. Adkins from cardiology Medication Reconciliation New Medications: Colchicine (Colcrys) 0.6 Mg Tab 0.6 MG PO BID for 30 Days, #60 TAB 6 Refills Pantoprazole (Pantoprazole Sodium) 40 Mg Tab 40 MG PO BID for 30 Days, #60 TAB Ranitidine HCl (Ranitidine HCl) 150 Mg Tab 150 MG PO BID PRN for gerd for 30 Days, #60 TAB Sucralfate (Sucralfate) 1 Gm/10 Ml Susp 1 GM PO QID for 5 Days, #20 DOSE Continued Medications: Aspirin (Aspirin Ec) 81 Mg Tab 81 MG PO DAILY Atorvastatin (Lipitor) 20 Mg Tab 20 MG PO DAILY, TAB Bumetanide (Bumex) 1 Mg Tab 1 TAB PO DAILY for 90 Days, #90 TAB 1 Refill Citalopram Hydrobromide (Celexa) 20 Mg Tab 20 MG PO DAILY, TAB Gabapentin (Neurontin) 600 Mg Tab 600 MG PO BID UD, TAB TAKE IN PM & HS Lisinopril (Lisinopril) 2.5 Mg Tab 2.5 MG PO DAILY, TAB Lorazepam (Ativan) 0.5 Mg Tab 0.5 MG PO TID PRN for Anxiety, TAB Metoprolol Succinate (Toprol Xl) 50 Mg Tabcr 50 MG PO DAILY Nitroglycerin (Nitrostat) 0.4 Mg Tab 0.4 MG UT PRN, 0 Refills Oxycodone/Acetaminophen 5MG/325MG (Percocet 5MG/325MG) Tab 1 TABLET PO Q6H PRN for Pain, TAB PAIN Potassium Chloride (Potassium Chloride Er) 10 Meq Cap 20 MEQ PO DAILY, #180 Sotalol HCl (Sotalol HCl) 80 Mg Tab 1 TAB PO BID Zolpidem Tartrate (Zolpidem Tartrate) 10 Mg Tab 1 TAB PO HS PRN for Sleep for 30 Days, #30 TAB Discontinued Medications: Pantoprazole Sodium (Protonix) 40 Mg Tab 1 TAB PO DAILY for 30 Days, #30 TAB 5 Refills Warfarin Sodium (Warfarin Sodium) 3 Mg Tab 1 TAB PO DAILY for 30 Days, #30 TAB 5 Refills Discharge Exam ROS Constitutional: no chills, aches, sweats or fever Respiratory: no sob,cough, sputum, or wheezing Cardiac: + mild chest pain overnight rated at 1-2/10, improved from previous, palpitations, edema, orthopnea or lightheadedness GI: no abdominal pain, nausea, vomiting, diarrhea or constipation : no dysuria or hesitancy Extremities: no joint pain or weakness Skin: no rash All other systems reviewed and negative General: no distress Eyes: normal inspection, PERLL Respiratory: chest non tender, clear to auscultation, normal breath sounds, no respiratory distress, no accessory muscle use Cardiac: regular rate and rhythm, no rub or gallop, no murmur, no edema, no jvd GI/: active bowel sounds, no abd pain or tenderness, soft, non distended Extremities: normal range of motion, normal strength, non tender Neuro/Psych: alert and oriented x 3, normal mood and affect Skin: normal color, dry Hospital Course This is a 66 y/o male who presented to the ED on 12/09 with worsening chest pain. The patient was recently admitted to [facility] one month ago for v- tach. There he had an ablation and his previous ICD was upgraded to a biventricular device. He was discharged on sotalol at that time. Since then, he has had intermittent chest pain which has been getting progressively more intense and frequent, particularly in the last week. He stated on the day of admission that the pain was the worst it had ever been at a 8/10 severity. He described the pain as a burning and pressure across his chest, down both arms, and into his back between his shoulder blades with associated tingling in his arms, shortness of breath, and at times sweats. This pain occurred at rest and he denied any precipitating factors. Chest pain possibly due to pericarditis - troponins negative x3 -Echo shows EF 15-20% with severe global hypokinesis of LV. Moderately dilated RV. RV systolic function moderately reduced. Mild mitral regurgitation. Grade III diastolic dysfunction/restrictive diastolic filling. Mild pulmonary HTN. PASP 40-45 mmHg. No significant change from 01/26/17 study. -Consulted cardiology: no cath, no stress testing at this time, pt had a normal stress test during recent admission in [place]. Cardiology restarted patient' s sotalol due to V tach two nights ago during which patient was asymptomatic. He did not have any further dysrhythmia over the past two days. - Per , patient was started on colchicine to evaluate/treat for pericarditis due to pacer lead placement and over the night and this morning patient has felt his chest pain improved with only 1 mild episode over the night which he rated a 1-2/ 10 pain. It does not appear that cardiac ischemia is an issue - Will hold warfarin as patient is supratherapeutic and also in preparation for outpatient follow up with GI to evaluate for GI source of chest pain in case scope is necessary. Agree with Dr. Schwarz that patient is relatively low risk for thrombus with warfarin held as he has not been in A.fib , just pacing -Fasting lipid panel shows triglycerides 210, total cholesterol 110, non-HDL 81 -CTA chest negative for dissection and PE - Patient was also started on ranolazine for two days but developed tinnitus and it was discontinued. He does not have further tinnitus today CAD, h/o [place], HLD, systolic CHF, ischemic cardiomyopathy -Continue ASA, Toprol XL 50 mg PO qd, lisinopril 2.5 mg PO qd, Lipitor 20 mg PO qd, Bumex A-flutter, h/o v-tach s/p ablation, pacemaker/defibrillator -Pacemaker working appropriately per cardio -Continue Toprol - hold coumadin until GI appointment Monday as above CKD II-III - prp Monday - creatinine today 1.4, baseline appears to be 1.2-1.3 Pulmonary nodule -10 mm pulmonary nodule in right lung base, seen previously [place] [address] Recommend f/u in 6 months Anxiety, depression, phantom pain -Continue Celexa 20 mg PO qd, Ativan 0.5 mg PO TID prn anxiety, gabapentin 600 mg PO BID RHIANNA -CPAP Chronic reflux esophagitis- - protonix increased to bid, ranitidine prn, - sucralfate qid x 7 days [employer] Physician Supervision Note: I interviewed and examined the patient. Discussed with Charlene Guzmán NP and agree with findings and plan as documented in the note. Any exceptions or clarifications are listed here: None pt ok for discharge Documented By: Jonel Daugherty Total Time Spent: Greater than 30 minutes This includes examination of the patient, discharge planning, medication reconciliation, and communication with other providers. Discharge Instructions Please refer to the electronic Patient Visit Report (Discharge Instructions) for additional information. Follow-Up Dr. Jakub Angulo, [facility] Additional Copies To Will Craig M.D.
[2017-12-15 10:11] VITALS: BP 102/63; PULSE 59; TEMP 36.4; O2SAT 95
== END 2017-12-15 10:30 | disposition home or self-care (01) | DRG 315 ==
LOC: EDBD 11:02 → C.EDB 11:03 → C.2T 15:02 → ENRESERV 15:10 → OBSVTOIN 12-10 12:02
PROVIDERS: ADMIT Hospitalist; ATTEND Nurse Practitioner Family
DX: I31.9 Disease of pericardium, unspecified (principal); I48.92 Unspecified atrial flutter; I50.22 Chronic systolic (congestive) heart failure; I25.10 Atherosclerotic heart disease of native coronary artery without angina pectoris; I25.2 Old myocardial infarction; E78.5 Hyperlipidemia, unspecified; Z95.0 Presence of cardiac pacemaker; R91.1 Solitary pulmonary nodule; F32.9 Major depressive disorder, single episode, unspecified; F41.9 Anxiety disorder, unspecified; G54.6 Phantom limb syndrome with pain; G47.33 Obstructive sleep apnea (adult) (pediatric); K21.0 Gastro-esophageal reflux disease with esophagitis; I27.20 Pulmonary hypertension, unspecified; R79.1 Abnormal coagulation profile; H93.19 Tinnitus, unspecified ear; T47.0X5A Adverse effect of histamine H2-receptor blockers, initial encounter; I25.5 Ischemic cardiomyopathy; N18.3 Chronic kidney disease, stage 3 (moderate); Z87.891 Personal history of nicotine dependence; Z82.49 Family history of ischemic heart disease and other diseases of the circulatory system; Z79.01 Long term (current) use of anticoagulants

== ENCOUNTER → 2017-12-19 | Outpatient (CLI) | payer OTHER ==
[~2017-12-19] MED LIST changes: +BTP80 PO; +CLC6 PO; +CRFUDL PO; -MEXI200C PO; +OXYC-57 PO; +PANT40TA2 PO; -WARF-298 PO; +ZNT150 PO
[2017-12-19 17:56] LABS: INR 1.1 (0.9-1.1)
== END | disposition home or self-care (01) ==
LOC: C.LABSPEC 17:16
PROVIDERS: ATTEND Internal Medicine
DX: Z51.81 Encounter for therapeutic drug level monitoring (principal); N18.3 Chronic kidney disease, stage 3 (moderate); R79.89 Other specified abnormal findings of blood chemistry; I48.0 Paroxysmal atrial fibrillation; Z79.01 Long term (current) use of anticoagulants

== ENCOUNTER → 2017-12-29 | Outpatient (CLI) | payer OTHER ==
--- NOTE | 2017-12-29 12:04 | DIAGNOSTIC IMAGING REPORT ---
GI SERIES W/AIR ROUTINE CLINICAL HISTORY: Acid reflux disease Atypical chest pain. COMPARISON STUDY: None. FLUOROSCOPY TIME: 1.9 minutes. FINDINGS: 25 fluoroscopic images were obtained. Median sternotomy wires are noted as well as pacer/AICD leads esophageal motility is within normal limits. No esophageal mass or stricture is identified. No reflux was elicited. No hiatal hernia was identified. Gastric for pattern is within normal limits. Duodenum was unremarkable. Caliber of the opacified jejunum is normal. IMPRESSION: Unremarkable double contrast upper GI series. Electronically signed by: Guillermo Braden M.D. 12/29/2017 8:59 AM Dictated Date/Time: 12/29/2017 8:58 AM
== END | disposition home or self-care (01) ==
LOC: C.RAD 08:08
PROVIDERS: ATTEND Registered Nurse
DX: K21.9 Gastro-esophageal reflux disease without esophagitis (principal); R07.89 Other chest pain

== ENCOUNTER → 2018-01-01 | Outpatient (CLI) | payer OTHER ==
[2018-01-01 18:45] LABS: INR 3.6 (0.9-1.1)
== END | disposition home or self-care (01) ==
LOC: C.LABSPEC 17:30
PROVIDERS: ATTEND Internal Medicine
DX: I48.0 Paroxysmal atrial fibrillation (principal); Z79.01 Long term (current) use of anticoagulants

== ENCOUNTER 2018-09-22 23:34 | Inpatient (IN) ==
[2018-09-22 23:48] LABS: Basophils # (auto) 0.01 K/uL (0-0.2); Basophils % (auto) 0.2 %; Eosinophils # (auto) 0.11 K/uL (0-0.5); Eosinophils % (auto) 1.9 %; Hematocrit (blood only) 44.4 % (42-52); Hemoglobin 15.6 g/dL (14.0-18.0); Immature Granulocytes # (auto) 0.01 K/uL (0.00-0.02); Immature Granulocytes % (auto) 0.2 %; Lymphocytes # (auto) 1.74 K/uL (1.2-3.4); Lymphocytes % (auto) 29.7 %; Mean Corpuscular Hgb Conc 35.1 g/dL (32-36); Mean Corpuscular Volume 88.8 fL (80-100); Mean Platelet Volume 11.3 fL (7.4-10.4); Monocytes % (auto) 6.8 %; Neutrophils # (auto) 3.59 K/uL (1.4-6.5); Neutrophils % (auto) 61.2 %; Platelet Count 131 K/uL (130-400); RDW Coefficient of Variation 12.8 % (11.5-14.5); RDW Standard Deviation 41.6 fL (36.4-46.3); White Blood Count 5.86 K/uL (4.8-10.8)
[2018-09-23 00:08] LABS: Alanine Aminotransferase 18 U/L (12-78); Albumin Level 3.9 gm/dl (3.4-5.0); Aspartate Aminotransferase 11 U/L (15-37); Blood Urea Nitrogen 28 mg/dl (7-18); Carbon Dioxide 25 mmol/L (21-32); Chloride 105 mmol/L (98-107); Creatinine Clr Calc Pharmacy 53.6 ml/min; Est GFR (African American) 55.6; Glucose 163 mg/dl (70-99); Magnesium 2.2 mg/dl (1.8-2.4); Potassium 3.8 mmol/L (3.5-5.1); Sodium 138 mmol/L (136-145)
[2018-09-23 00:13] LABS: Albumin Globulin Ratio 1.1 (0.9-2); Alkaline Phosphatase 114 U/L (45-117); Bilirubin,Total 1.4 mg/dl (0.2-1); Globulin 3.4 gm/dl (2.5-4.0); Total Protein 7.3 gm/dl (6.4-8.2); Troponin I < 0.015 ng/ml (0-0.045)
[2018-09-23 01:34] LABS: INR 2.3 (0.9-1.1)
--- NOTE | 2018-09-23 04:16 | Emergency Department Note ---
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 The patient reports that his heart rate monitor showed his heart rate increasing from 70 beats per minute to 140 beats per minute before he EMS arrived. He states that his defibrillator has gone off 40 times total, including the two times it went off today, and the last time it went off was 11 months ago. The patient denies any pain. He states that he has no chest pain. The patient reports that he was feeling "excellent" today, and he denies any excessive work or dehydration. He denies any alcohol use today. EMS states that he received Aspirin and took 1 nitroglycerin SUPPLIER QUALITY SPECIALIST. The patient notes a history of heart attacks. 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 Home Medications Home Medications Medication Instructions Recorded Confirmed Type aspirin [Aspirin Low Dose] 81 mg PO DAILY 02/15/18 09/23/18 History atorvastatin 20 mg PO DAILY 02/15/18 09/23/18 History bumetanide 1 mg PO DAILY 02/15/18 09/23/18 History citalopram 20 mg PO DAILY 02/15/18 09/23/18 History gabapentin 600 mg PO BID 02/15/18 09/23/18 History lisinopril 2.5 mg PO DAILY 02/15/18 09/23/18 History lorazepam 0.5 mg PO TID PRN 02/15/18 09/23/18 History metoprolol succinate 50 mg PO DAILY 02/15/18 09/23/18 History nitroglycerin 0.4 mg SUBLINGUAL DIRECTED 02/15/18 09/23/18 History pantoprazole [Protonix] 40 mg PO DAILY 02/15/18 09/23/18 History sotalol 80 mg PO BID 02/15/18 09/23/18 History warfarin 2 mg PO 3XWK 02/15/18 09/23/18 History zolpidem 1 tab PO HS 02/15/18 09/23/18 History cyclobenzaprine 10 mg PO TID PRN 09/23/18 09/23/18 History oxycodone-acetaminophen 1 tab PO Q6 PRN 09/23/18 09/23/18 History potassium chloride 20 meq PO DAILY 09/23/18 09/23/18 History warfarin 3 mg PO 4XWK 09/23/18 09/23/18 History Allergies Allergy/AdvReac Type Severity Reaction Status Date / Time heparin Allergy Severe CAUSES HIT Verified 02/15/18 21:29 silver AdvReac Unknown TOPICAL - Verified 02/15/18 21:29 BURNING, PAIN Past Med/Surg History Social History Preferred Language: Zimbabwean Communication Ability: Effective Current Living Situation: Spouse Feels Safe at Home: Yes Smoking Status: Never smoker Cigarettes Per Day: 20 Review of Systems See HPI for pertinent positives & negatives. and A total of 10 systems reviewed and were otherwise negative Physical Exam Vital Signs Vital Signs - 24 hr 09/22/18 23:36 09/22/18 23:42 09/23/18 00:01 Temperature 37 C Temperature Source Oral Sepsis Recent Fever Within 48 Hours No Sepsis Action Taken by Nursing No Action Required Pulse Rate 72 Pulse Rate [Apical] 64 Pulse Rate from SpO2 Sensor Respiratory Rate 18 17 Respiratory Effort / Characteristics Non-Labored Spontaneous Respiratory Depth Normal Blood Pressure 136/69 Blood Pressure [Right Arm] 110/67 Blood Pressure Mean 91 Blood Pressure Mean [Right Arm] 81 Pulse Oximetry 97 97 93 Oxygen Delivery Method Room Air Room Air Room Air 09/23/18 01:00 09/23/18 01:31 09/23/18 02:01 Temperature Temperature Source Sepsis Recent Fever Within 48 Hours Sepsis Action Taken by Nursing Pulse Rate 65 66 63 Pulse Rate [Apical] Pulse Rate from SpO2 Sensor 60 60 60 Respiratory Rate 19 16 14 Respiratory Effort / Characteristics Respiratory Depth Blood Pressure 116/67 103/56 L 104/68 Blood Pressure [Right Arm] Blood Pressure Mean 83 71 80 Blood Pressure Mean [Right Arm] Pulse Oximetry 93 92 95 Oxygen Delivery Method Room Air Room Air Room Air 09/23/18 02:31 09/23/18 03:01 09/23/18 03:59 Temperature Temperature Source Sepsis Recent Fever Within 48 Hours Sepsis Action Taken by Nursing Pulse Rate 60 60 60 Pulse Rate [Apical] Pulse Rate from SpO2 Sensor 61 61 Respiratory Rate 18 18 15 Respiratory Effort / Characteristics Respiratory Depth Blood Pressure 114/65 109/73 107/63 Blood Pressure [Right Arm] Blood Pressure Mean 81 85 Blood Pressure Mean [Right Arm] Pulse Oximetry 95 96 94 Oxygen Delivery Method Room Air Room Air Room Air HEENT: Head - normocephalic and atraumatic Pupils are equal, round, and reactive to light. Extraocular eye muscles are intact, and sclera are anicteric. Nose - moist nasal mucosa without discharge. Mouth - moist buccal mucosa. Oropharynx is nonerythematous and there is no tonsillar exudate or edema noted. Neck: Supple; no JVD, nuchal rigidity, cervical lymphadenopathy, or auscultated bruits. Heart: Regular rate and rhythm. There is a normal S1 and S2 with no murmurs, clicks, or gallops appreciated. Lungs: Clear to auscultation bilaterally with no wheezes, rales, or rhonchi. Abdomen: Soft, completely nontender, nondistended, with good bowel sounds. There are no palpable pulsatile masses or hepatosplenomegaly. There is no guarding, rigidity, or rebound noted. Extremities: No evidence of cyanosis, clubbing, or edema. There are easily palpable right peripheral pulse. He has a left leg BKA with a prosthetic. Skin: warm and dry with good turgor and no rashes. Course 2331: The patient was evaluated in room B01. A complete history and physical exam was performed. Previous electronic medical records were reviewed. Laboratory studies were drawn as above. A portable chest x-ray was obtained. A twelve-lead EKG was obtained here in the emergency department. 2335: EMS EKG was reviewed. The patient was sinus tachycardic with a rate of 131 SUPPLIER QUALITY SPECIALIST. 2347: The patient was moved to room B04. 0005: The staff is doing a pacemaker interrogation. 0104: I spoke with Naun of [employer] about the patients case. He said that the patient has had 51 episodes of ventricular tachycardia with 2 defibrillations. 0117: I spoke with Dr. Adkins, [facility] cardiology, about the patients case. He recommended admission. 0121: I reevaluated the patient, and he stated that he was comfortable. I explained the results to the patient and his . 0127: I spoke with Dr. Valdes, [facility] hospitalist, about the patients case. He will further evaluate the patient. Consultations Consultation #1: I spoke with Naun of [employer] about the patients case. He said that the patient has 51 episodes of ventricular tachycardia with 2 defibrillations. Time: 01:04 Consultation #2: I spoke with Dr. Adkins, [facility] cardiology, about the patients case. He recommended admission. Time: 01:17 Consultation #3: I spoke with Dr. Valdes, [facility] hospitalist, about the patients case. He will further evaluate the patient. Time: 01:27 Medical Decision Making Differential Diagnosis The differential diagnosis includes: Cardiac dysrhythmia, lead fracture, electrical storm, electrolyte abnormality STEMI Medical Records Attestation: I reviewed the patient's medical records. Home Medications Current Medication List: was personally reviewed by me Laboratory Data Attestation: I reviewed the patient's lab results. Result diagrams: 09/22/18 23:15 09/22/18 23:15 Lab Results 09/22/18 09/22/18 09/22/18 Range/Units 23:15 23:15 23:15 WBC 5.86 (4.8-10.8) K/uL RBC 5.00 (4.7-6.1) M/uL Hgb 15.6 (14.0-18.0) g/dL Hct 44.4 (42-52) % MCV 88.8 (80-100) fL MCH 31.2 (25-34) pg MCHC 35.1 (32-36) g/dL RDW Std Deviation 41.6 (36.4-46.3) fL RDW Coeff of Faby 12.8 (11.5-14.5) % Plt Count 131 (130-400) K/uL MPV 11.3 H (7.4-10.4) fL Immature Gran % (Auto) 0.2 % Neut % (Auto) 61.2 % Lymph % (Auto) 29.7 % [place] % (Auto) 6.8 % Eos % (Auto) 1.9 % Baso % (Auto) 0.2 % Immature Gran # (Auto) 0.01 (0.00-0.02) K/uL Neut # (Auto) 3.59 (1.4-6.5) K/uL Lymph # (Auto) 1.74 (1.2-3.4) K/uL [place] # (Auto) 0.40 (0.11-0.59) K/uL Eos # (Auto) 0.11 (0-0.5) K/uL Baso # (Auto) 0.01 (0-0.2) K/uL PT 22.0 H (9.0-12.0) Seconds INR 2.3 H (0.9-1.1) Sodium 138 (136-145) mmol/L Potassium 3.8 (3.5-5.1) mmol/L Chloride 105 (98-107) mmol/L Carbon Dioxide 25 (21-32) mmol/L Anion Gap 8.0 (3-11) BUN 28 H (7-18) mg/dl Creatinine 1.47 H (0.6-1.4) mg/dl Est Cr Clr Drug Dosing 53.6 ml/min Est GFR ( Amer) 55.6 Est GFR (Non-Af Amer) 48.0 BUN/Creatinine Ratio 19.0 (10-20) Glucose 163 H (70-99) mg/dl Calcium 9.0 (8.5-10.1) mg/dl Magnesium 2.2 (1.8-2.4) mg/dl Total Bilirubin 1.4 H (0.2-1) mg/dl AST 11 L (15-37) U/L ALT 18 (12-78) U/L Alkaline Phosphatase 114 (45-117) U/L Troponin I < 0.015 (0-0.045) ng/ml Total Protein 7.3 (6.4-8.2) gm/dl Albumin 3.9 (3.4-5.0) gm/dl Globulin 3.4 (2.5-4.0) gm/dl Albumin/Globulin Ratio 1.1 (0.9-2) Imaging Data Attestation: I personally reviewed and interpreted this imaging study as follows: My Impression: XR CHEST 1V: Cardiomegaly. Implanted pacemaker defibrillator. Sternotomy wires in place. Unchanged from February 2018. ECG Data Attestation: I personally reviewed and interpreted this ECG as follows: Indication: palpitations Rate (beats per minute): 74 Rhythm: other (AV dual paced rhythm ) Findings: + other (no obvious ischemia ) and + PVC Comparison ECG Date: from (pre-hopital EKG) Change: the following changes noted (Normal sinus rhythm with ST segment depression and T wave inversion in leads V2 and V3. ST segment elevation inferiorly is concerning for STEMI. 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 The patient has a long-standing history of cardiac dysrhythmias with multiple previous ablations and previous defibrillations. The patient's defibrillator fired twice tonight. The interrogation revealed 51 episodes of ventricular tachycardia. The patient will be admitted to the hospital by the [facility] Hospitalist group. Cardiology will see him in the morning. He has had no further episodes of defibrillation while here in the emergency department and denies any chest discomfort. A twelve-lead EKG was performed in the prehospital setting which was concerning for a STEMI. However, the patient had no chest pain when that EKG was taken. Impression & Plan Ventricular tachycardia Discharge Plan Visit Data Chief Complaint: Cardiac Assessment Stated Complaint: CHEST DISCOMFORT ED Provider: Adrianne Ortiz Discharge Problem: Ventricular tachycardia Patient Disposition: Being Evaluated by Hospitalist Discharge Instructions Interventions: ED Discharge Assessment Last Done: 09/23/18 03:59 Forms Stand Alone Forms: My [facility] Prescriptions Prescriptions: No Action gabapentin 600 mg Tablet 600 mg PO BID RF: 0 atorvastatin 20 mg Tablet 20 mg PO DAILY RF: 0 metoprolol succinate 50 mg Tablet Extended Release 24 Hr 50 mg PO DAILY RF: 0 sotalol 80 mg tablet 80 mg PO BID RF: 0 aspirin [Aspirin Low Dose] 81 mg Tablet,Delayed Release (Dr/Ec) 81 mg PO DAILY RF: 0 citalopram 20 mg Tablet 20 mg PO DAILY RF: 0 lorazepam 0.5 mg Tablet 0.5 mg PO TID PRN (Reason: Anxiety) RF: 0 pantoprazole [Protonix] 40 mg Tablet,Delayed Release (Dr/Ec) 40 mg PO DAILY RF: 0 warfarin 2 mg Tablet 2 mg PO 3XWK RF: 0 nitroglycerin 0.4 mg Tablet, Sublingual 0.4 mg Sublingual DIRECTED RF: 0 bumetanide 1 mg Tablet 1 mg PO DAILY RF: 0 zolpidem 10 mg Tablet 1 tab PO HS RF: 0 lisinopril 2.5 mg Tablet 2.5 mg PO DAILY RF: 0 oxycodone-acetaminophen 5-325 mg tablet 1 tab PO Q6 PRN (Reason: Pain) RF: 0 cyclobenzaprine 10 mg tablet 10 mg PO TID PRN (Reason: Muscle Spasm) RF: 0 potassium chloride 10 mEq capsule, extended release 20 meq PO DAILY RF: 0 warfarin 1 mg tablet 3 mg PO 4XWK RF: 0 Referrals Referrals: Will Ritchie MD [Primary Care Provider] - The scribe's documentation has been prepared under my direction and personally reviewed by me in its entirety. I confirm that the note above accurately reflects all work, treatment, procedures, and medical decision making performed by me.
[2018-09-23] MEDS ORDERED: OXYCODONE/ACETAMINOPHEN 5mg/325mg TAB PO PRN (04:27)
[2018-09-23] MEDS ORDERED: ONDANSETRON INJ 2 MG/ML 2 ML VIAL IV PRN (04:27)
[2018-09-23] MEDS ORDERED: ALUMINUM/MAGNESIUM SUSP 30 ML UDC PO PRN (04:27)
[2018-09-23] MEDS ORDERED: ACETAMINOPHEN 1000 MG/100 ML IV IV PRN (04:27)
[2018-09-23] MEDS ORDERED: CYCLOBENZAPRINE HCL 10 MG TAB PO PRN (04:27)
[2018-09-23] MEDS ORDERED: NITROGLYCERIN SL 0.4 MG/TAB TAB SL PRN (04:27)
[2018-09-23] MEDS ORDERED: ACETAMINOPHEN 325 MG TAB PO PRN (04:27)
[2018-09-23] MEDS ORDERED: MAGNESIUM HYDROXIDE SUSP 30 ML UDC PO PRN (04:27)
[2018-09-23 05:04] LABS: Basophils # (auto) 0.02 K/uL (0-0.2); Basophils % (auto) 0.4 %; Eosinophils # (auto) 0.09 K/uL (0-0.5); Eosinophils % (auto) 1.8 %; Hematocrit (blood only) 40.1 % (42-52); Hemoglobin 13.8 g/dL (14.0-18.0); Immature Granulocytes # (auto) 0.01 K/uL (0.00-0.02); Immature Granulocytes % (auto) 0.2 %; Lymphocytes # (auto) 1.47 K/uL (1.2-3.4); Lymphocytes % (auto) 28.7 %; Mean Corpuscular Hgb Conc 34.4 g/dL (32-36); Mean Corpuscular Volume 88.5 fL (80-100); Mean Platelet Volume 11.4 fL (7.4-10.4); Monocytes # (auto) 0.42 K/uL (0.11-0.59); Monocytes % (auto) 8.2 %; Neutrophils # (auto) 3.11 K/uL (1.4-6.5); Neutrophils % (auto) 60.7 %; Platelet Count 115 K/uL (130-400); RDW Coefficient of Variation 12.8 % (11.5-14.5); RDW Standard Deviation 41.2 fL (36.4-46.3); Red Blood Count 4.53 M/uL (4.7-6.1); White Blood Count 5.12 K/uL (4.8-10.8)
[2018-09-23 05:16] LABS: INR 2.4 (0.9-1.1); Partial Thromboplastin Ratio 1.2; Partial Thromboplastin Time 33.5 Seconds (21.0-31.0); Prothrombin Time 22.8 Seconds (9.0-12.0)
[2018-09-23 05:36] LABS: Alanine Aminotransferase 14 U/L (12-78); Albumin Level 3.3 gm/dl (3.4-5.0); Aspartate Aminotransferase 10 U/L (15-37); BUN Creatinine Ratio 21.6 (10-20); Blood Urea Nitrogen 25 mg/dl (7-18); Calcium 8.5 mg/dl (8.5-10.1); Carbon Dioxide 26 mmol/L (21-32); Chloride 108 mmol/L (98-107); Est GFR (African American) 74.1; Est GFR (Non-African American) 63.9; Glucose 99 mg/dl (70-99); Potassium 3.7 mmol/L (3.5-5.1); Sodium 139 mmol/L (136-145)
[2018-09-23 05:41] LABS: Albumin Globulin Ratio 1.1 (0.9-2); Alkaline Phosphatase 95 U/L (45-117); Globulin 2.9 gm/dl (2.5-4.0); Total Protein 6.2 gm/dl (6.4-8.2); Troponin I < 0.015 ng/ml (0-0.045)
--- NOTE | 2018-09-23 06:10 | History & Physical Report ---
Date of Service September 23, 2018 Assessment & Plan (1) Paroxysmal ventricular tachycardia: Paroxysmal ventricular tachycardia/status post AICD firing/CAD/history of VA/chronic systolic heart failure- Interrogation by [employer] rep in ED reported many episodes of paroxysmal V. tach. Possible aggravating factors may be his anger outbursts as was noted earlier; he has not been able to wear his new CPAP due to mask needing to be adjusted over the past few nights; and he also has had persistent diarrheal issues over the past month when eating any foods. Continue aspirin 81 mg daily, bumetanide 1 mg p.o. daily, lisinopril 2.5 mg p.o. daily, metoprolol succinate 50 mg p.o. daily, potassium chloride 20 mEq p.o. daily, sotalol 80 mg p.o. twice daily and warfarin. The patient will be admitted to telemetry for serial cardiac enzymes, serial EKG's, cardiac rhythm monitoring and a 2-D echocardiogram with Dopplers. Present on Admission?: Yes (2) Obstructive sleep apnea treated with continuous positive airway pressure (CPAP): Patient will use a hospital supplied CPAP machine tonight, and then his will bring in his home CPAP machine and see if it can be adjusted while in the hospital. Present on Admission?: Yes (3) CAD (coronary artery disease), [place] coronary artery: Present on Admission?: Yes (4) Hypertension: See above Present on Admission?: Yes (5) Hyperlipidemia LDL goal <70: Continue atorvastatin 20 mg p.o. daily Present on Admission?: Yes (6) Anxiety: Continue citalopram, gabapentin, lorazepam and zolpidem Present on Admission?: Yes (7) GERD (gastroesophageal reflux disease): Continue pantoprazole 40 mg daily Present on Admission?: Yes (8) Chronic pain syndrome: Continue cyclobenzaprine, gabapentin and oxycodone-acetaminophen. Present on Admission?: Yes History of Present Illness Chief Complaint: The patient presents to the emergency department with complaint of chest discomfort, and rapid heart rate, and his AICD firing twice today prior to arrival. Primary Care Provider: Will Ritchie MD The patient is a 67-year-old male with a past medical history including paroxysmal ventricular tachycardia, chronic systolic heart failure, syncope, unstable angina, GERD and obstructive sleep apnea who reports that he noticed his heart rate increasing from 70 beats minute 140 bpm, and then his AICD fired twice today. He notes that he has gotten a new CPAP machine recently, and has not been able to wear it the past 2 days due to mask need to be adjusted. His also reports that over the past month, that when he eats any food, it seems to osuna right through him as loose stools that he has to run to the bathroom. During our discussion, the patient and his asked if being angry could make his AICD fire. They report that he can get extremely angry over a number of things, and he became very upset over something he read in the paper today, and within a few minutes he noted the symptoms above and his AICD firing. Allergies Allergy/AdvReac Type Severity Reaction Status Date / Time heparin Allergy Severe CAUSES HIT Verified 02/15/18 21:29 silver AdvReac Unknown TOPICAL - Verified 02/15/18 21:29 BURNING, PAIN Home Medications Home Medications Medication Instructions Recorded Confirmed Type aspirin [Aspirin Low Dose] 81 mg PO DAILY 02/15/18 09/23/18 History atorvastatin 20 mg PO DAILY 02/15/18 09/23/18 History bumetanide 1 mg PO DAILY 02/15/18 09/23/18 History citalopram 20 mg PO DAILY 02/15/18 09/23/18 History gabapentin 600 mg PO BID 02/15/18 09/23/18 History lisinopril 2.5 mg PO DAILY 02/15/18 09/23/18 History lorazepam 0.5 mg PO TID PRN 02/15/18 09/23/18 History metoprolol succinate 50 mg PO DAILY 02/15/18 09/23/18 History nitroglycerin 0.4 mg SUBLINGUAL DIRECTED 02/15/18 09/23/18 History pantoprazole [Protonix] 40 mg PO DAILY 02/15/18 09/23/18 History sotalol 80 mg PO BID 02/15/18 09/23/18 History warfarin 2 mg PO 3XWK 02/15/18 09/23/18 History zolpidem 1 tab PO HS 02/15/18 09/23/18 History cyclobenzaprine 10 mg PO TID PRN 09/23/18 09/23/18 History oxycodone-acetaminophen 1 tab PO Q6 PRN 09/23/18 09/23/18 History potassium chloride 20 meq PO DAILY 09/23/18 09/23/18 History warfarin 3 mg PO 4XWK 09/23/18 09/23/18 History Past Med/Surg History Social History Preferred Language: Latvian Communication Ability: Effective Mixing [employer] Operator Required: No Beliefs That Will Affect Care: None Current Living Situation: Spouse Other Information That Helps Us Care for You: No Feels Safe at Home: Yes Safety Concerns: Feels Safe At This Time Smoking Status: Former smoker Cigarettes Per Day: 20 Do You Dip or Chew Tobacco: No Smoking End Date: 2009 Second Hand Exposure: No Tobacco Cessation Education Requested by Patient: No Hx Alcohol Use: No Hx Substance Use: No Review of Systems Review of Systems: The patient denies cough, lower extremity swelling, sore throat, fevers, chills, sweats, weight change, fatigue, nausea, vomiting, constipation, blood in urine or stool, dysuria, urinary frequency or urgency, lightheadedness, dizziness, headache, memory loss, loss of consciousness, rash, abnormal bruising or bleeding, imbalance, focal or generalized weakness, numbness or tingling in arms or legs, generalized arthralgias or myalgias, back or neck pain, or night sweats. The review of systems is otherwise negative other than for that already noted above, and at least 10 systems have been reviewed. Physical Exam Physical Exam: The patient is awake, alert and oriented 3, well developed and well nourished, normocephalic and atraumatic, lying in bed and in no acute distress. HEENT--PERRL, EOMI, mucous membranes and oropharynx dry. Neck--supple. No JVD. No bruits. Thyroid normal, trachea midline, no adenopathy. Heart--normal S1 and S2. No murmurs, rubs or gallops. Lungs--clear bilaterally, no respiratory distress, no accessory muscle use. Abdomen--normal bowel sounds and soft. Nontender. Nondistended, no hernias or masses, no organomegaly. Extremities--no cyanosis or clubbing. No edema. There are good distal pulses b/l. Dermatologic--normal skin turgor, normal color, no abnormal lymph nodes, no rash. Neurologic--cranial nerves II through XII grossly intact. Rheumatologic--normal range of motion. Psychiatric--normal affect. Results & Data Vital Signs (Past 12 Hours) Vital Signs Temp Pulse Pulse Resp BP BP Pulse Ox 09/23/18 04:55 57 L 15 97 09/23/18 04:15 97.7 F 64 18 125/73 94 09/23/18 03:59 60 15 107/63 94 09/23/18 03:01 60 18 109/73 96 09/23/18 02:31 60 18 114/65 95 09/23/18 02:01 63 14 104/68 95 09/23/18 01:31 66 16 103/56 L 92 09/23/18 01:00 65 19 116/67 93 09/23/18 00:01 64 17 110/67 93 09/22/18 23:42 97 09/22/18 23:36 98.6 F 72 18 136/69 97 Laboratory Results Laboratory Results WBC 5.12 K/uL (4.8-10.8) 09/23/18 04:47 RBC 4.53 M/uL (4.7-6.1) L 09/23/18 04:47 Hgb 13.8 g/dL (14.0-18.0) L 09/23/18 04:47 Hct 40.1 % (42-52) L 09/23/18 04:47 MCV 88.5 fL (80-100) 09/23/18 04:47 MCH 30.5 pg (25-34) 09/23/18 04:47 MCHC 34.4 g/dL (32-36) 09/23/18 04:47 RDW Std Deviation 41.2 fL (36.4-46.3) 09/23/18 04:47 RDW Coeff of Faby 12.8 % (11.5-14.5) 09/23/18 04:47 Plt Count 115 K/uL (130-400) L 09/23/18 04:47 MPV 11.4 fL (7.4-10.4) H 09/23/18 04:47 Immature Gran % (Auto) 0.2 % 09/23/18 04:47 Neut % (Auto) 60.7 % 09/23/18 04:47 Lymph % (Auto) 28.7 % 09/23/18 04:47 [place] % (Auto) 8.2 % 09/23/18 04:47 Eos % (Auto) 1.8 % 09/23/18 04:47 Baso % (Auto) 0.4 % 09/23/18 04:47 Immature Gran # (Auto) 0.01 K/uL (0.00-0.02) 09/23/18 04:47 Neut # (Auto) 3.11 K/uL (1.4-6.5) 09/23/18 04:47 Lymph # (Auto) 1.47 K/uL (1.2-3.4) 09/23/18 04:47 [place] # (Auto) 0.42 K/uL (0.11-0.59) 09/23/18 04:47 Eos # (Auto) 0.09 K/uL (0-0.5) 09/23/18 04:47 Baso # (Auto) 0.02 K/uL (0-0.2) 09/23/18 04:47 PT 22.8 Seconds (9.0-12.0) H 09/23/18 04:47 INR 2.4 (0.9-1.1) H 09/23/18 04:47 APTT 33.5 Seconds (21.0-31.0) H 09/23/18 04:47 PTT Ratio 1.2 09/23/18 04:47 Sodium 139 mmol/L (136-145) 09/23/18 04:47 Potassium 3.7 mmol/L (3.5-5.1) 09/23/18 04:47 Chloride 108 mmol/L (98-107) H 09/23/18 04:47 Carbon Dioxide 26 mmol/L (21-32) 09/23/18 04:47 5.0 (3-11) 09/23/18 04:47 BUN 25 mg/dl (7-18) H 09/23/18 04:47 1.16 mg/dl (0.6-1.4) D 09/23/18 04:47 Est Cr Clr Drug Dosing 68.0 ml/min 09/23/18 04:47 Est GFR ( Amer) 74.1 09/23/18 04:47 Est GFR (Non-Af Amer) 63.9 09/23/18 04:47 21.6 (10-20) H 09/23/18 04:47 Glucose 99 mg/dl (70-99) 09/23/18 04:47 Calcium 8.5 mg/dl (8.5-10.1) 09/23/18 04:47 Magnesium 2.2 mg/dl (1.8-2.4) 09/22/18 23:15 1.0 mg/dl (0.2-1) 09/23/18 04:47 AST 10 U/L (15-37) L 09/23/18 04:47 ALT 14 U/L (12-78) 09/23/18 04:47 95 U/L (45-117) 09/23/18 04:47 < 0.015 ng/ml (0-0.045) 09/23/18 04:47 6.2 gm/dl (6.4-8.2) L 09/23/18 04:47 3.3 gm/dl (3.4-5.0) L 09/23/18 04:47 2.9 gm/dl (2.5-4.0) 09/23/18 04:47 1.1 (0.9-2) 09/23/18 04:47 Code Status & VTE Plan Code Status Full code VTE Prophylaxis Plan VTE Prophylaxis will be ordered: Yes
--- NOTE | 2018-09-23 08:03 | XRay Report ---
XR chest 1V portable CLINICAL HISTORY: defib went off COMPARISON STUDY: Chest CT December 09, 2017. Chest radiograph December 16, 2017. FINDINGS: Left subclavian biventricular pacer/AICD is in place. There are median sternotomy wires. Ca rdiomegaly is unchanged. There is no pneumothorax or pleural effusion. There is no consolidation. The re is no evidence for pulmonary edema. IMPRESSION: 1. No acute cardiopulmonary findings. 2. Cardiomegaly. No radiographic evidence of pulmonary edema. Electronically signed by: Guillermo Braden M.D. 09/23/2018 8:02 AM
[2018-09-23] MEDS ORDERED: SOTALOL HCL 80 MG TAB PO SCH (09:00)
[2018-09-23] MEDS: POTASSIUM CHLORIDE 10 MEQ TABCR PO SCH (09:42)
[2018-09-23] MEDS: METOPROLOL SUCC 50MG EXT REL TAB PO SCH (09:42)
[2018-09-23] MEDS: ASPIRIN 81 MG ECTAB PO SCH (09:42)
[2018-09-23] MEDS: ATORVASTATIN 20 MG TAB PO SCH (09:42)
[2018-09-23] MEDS: PANTOprazole 40 MG TAB PO SCH (09:42)
[2018-09-23] MEDS: LISINOPRIL 2.5 MG TAB PO SCH (09:43)
[2018-09-23] MEDS: CITALOPRAM 20 MG TAB PO SCH (09:43)
[2018-09-23] MEDS: BUMETANIDE 1 MG TAB PO SCH (09:43)
[2018-09-23] MEDS ORDERED: AMIODARONE IV BOLUS / DRIP IV STA (11:56)
[2018-09-23] MEDS ORDERED: AMIODARONE 360MG / 200ML D5W IV ONE (12:07)
[2018-09-23] MEDS ORDERED: AMIODARONE 150MG / 100ML D5W IV ONE (12:10)
[2018-09-23] MEDS ORDERED: AMIODARONE / D5W 150 MG/100 ML BAG IV STA (12:12)
[2018-09-23] MEDS ORDERED: AMIODARONE / D5W 360 MG/200 ML BAG IV SCH (12:22)
--- NOTE | 2018-09-23 13:58 | Cardiology Consultation ---
Date of Consultation September 23, 2018 Assessment & Plan (1) Sustained ventricular tachycardia: Had VT storm 09/22/[address] 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 He recommended amiodarone IV in place of sotalol. Amiodarone to start today. He has already undergone VT ablation x4. Amiodarone was not effective in the past however since his last ablation, it may be effective now. Continue beta- shaun. (2) CAD (coronary artery disease), [place] coronary artery: Status post CABG x4 and also circumflex stent. He reports 3 of 4 grafts as failed based onMost recent catheterization. No angina or heart failure symptoms. ContinueAspirin 81 mg daily. Continue statin and beta-shaun. Consider high-intensity statin therapy. (3) Hypertension: Blood pressure mildly elevated when last checked however otherwise has been well controlled throughout this hospital stay. (4) Chronic systolic (congestive) heart failure: He appears euvolemic. Continue home regimen of diuretics. Low-sodium diet. (5) Ischemic cardiomyopathy: LV systolic function severely reduced. Consider titrating beta-shaun. If tolerated, consider titrating RUFINO-inhibitor or replacing Lisinopril with Entresto. ICD in place. (6) Atrial flutter: Currently paced. On anticoagulation for stroke risk reduction. Continue anti rhythmic and beta-shaun. Disposition: Dr. Sanders, his primary tailings dam laborer, will resume his cardiology care tomorrow. Dr. Sanders was contacted today to discuss treatment strategy for recurrent ventricular tachycardia as this has been difficult to control in the past. Case also discussed with Dr. Remy. Highly complex medical issues. Thank you for allowing me to participate in the care of your patient. Please call for any other questions or concerns. Sincerely, Silvestre Atkins M.D. History of Present Illness Reason for Consultation: Ventricular tachycardia Requesting Physician: Dr. Martin Attending Physician: Armin Remy, History of Present Illness Mr. Ruggiero is a very pleasant 67-year-old gentleman with a history significant for CAD status post CABG x4, prior PCI, ischemic cardiomyopathy, recurrent ventricular tachycardia status post VT ablation x4, ICD, dyslipidemia, obstructive sleep apnea on CPAP, and atrial flutter/fibrillation. He follows closely with Dr. Sanders for his cardiology needs. He has had a difficult time with ventricular tachycardia in the past. He has ICD and has had several shocks in the past and has undergone ventricular tachycardia ablation on 4 separate occasions, the most recent October of 2017 at [facility] in [place]. He has been on severalAnti rhythmic therapies in the past including amiodarone, mexiletine, and now sotalol. He tolerated each of these medications well but states that the amiodarone and mexiletine were not effective in the past and therefore they were discontinued. His last ICD interrogation was March of 2018 and he was noted to have 16 episodes of nonsustained ventricular tachycardia. He has been on sotalol 80 mg twice daily. His last ICD shock was October of 2017, which prompted ventricular tachycardia ablation. Last evening at approximately 10:30 p.m. he was sitting in a chair wa tching TV and felt palpitations. He felt his heart racing and then experienced ICD shock. Approximately 5 minutes later, he had another. ICD was interrogated and it was reported that from 10:30 p.m. to 11:23 p.m., he had 51 VT events with 2 ICD shock therapies. He has not had any further episodes noted on telemetry when evaluated earlier this morning. He denies chest pain, shortness of breath, syncope, near-syncope, edema, fevers, nausea, or vomiting. He did have abdominal discomfort recently and underwent hospitalization. He also has had diarrhea with 2 episodes yesterday but no melena, hematochezia, hematuria, or other bleeding. He currently feels back to his baseline. He reports that his last cardiac catheterization was in [place] in approximately 2016 where he was told 1 of his bypass grafts were patent while the other 3 had failed. His presented to the bedside. He has been taking his medications as prescribed, notably sotalol and metoprolol succinate. He had been on higher doses of metoprolol succinate in the past according to records, up to 150 mg daily. He also had been on carvedilol in the past at different times. He has not been tolerating his nightly CPAP due to malfunctioning mask but hopes to have this addressed. Review of systems: As above. Review of systems otherwise negative/unremarkable. Family history: Father with CAD. Social history: Quit smoking in the past. No significant alcohol. and presented to the bedside. Past medical history: 1. Acid reflux disease (K21.9) 2. CABG x 4 (Jun 2009): CLEARY to LAD; SVG to OM1; SVG to OM2; SVG to PDA 3. Atrial flutter (I48.92) 4. Atypical chest pain (R07.89) 5. CAD (coronary artery disease), [place] coronary artery (I25.10) (CABG x 4 and Cx PCI 2002) 6. Cardiac defibrillator in place (Z95.810) 7. Chronic reflux esophagitis (K21.0) 8. Chronic systolic congestive heart failure (I50.22) 9. Depression (F32.9) 10. Dyspnea (R06.00) 11. Former smoker (Z87.891) 12. Hyperlipidemia (E78.5) 13. Impacted cerumen of both ears (H61.23) 14. Ischemic cardiomyopathy (I25.5) 15. Low back pain (M54.5) 16. Nonspecific low blood pressure reading (R03.1) 17. Obstructive sleep apnea (G47.33) 18. ST elevation (STEMI) myocardial infarction (I21.3) 19. Ventricular tachycardia (I47.2) Allergies Allergy/AdvReac Type Severity Reaction Status Date / Time heparin Allergy Severe CAUSES HIT Verified 02/15/18 21:29 silver AdvReac Unknown TOPICAL - Verified 02/15/18 21:29 BURNING, PAIN Home Medications Home Medications Medication Instructions Recorded Confirmed Type aspirin [Aspirin Low Dose] 81 mg PO DAILY 02/15/18 09/23/18 History atorvastatin 20 mg PO DAILY 02/15/18 09/23/18 History bumetanide 1 mg PO DAILY 02/15/18 09/23/18 History citalopram 20 mg PO DAILY 02/15/18 09/23/18 History gabapentin 600 mg PO BID 02/15/18 09/23/18 History lisinopril 2.5 mg PO DAILY 02/15/18 09/23/18 History lorazepam 0.5 mg PO TID PRN 02/15/18 09/23/18 History metoprolol succinate 50 mg PO DAILY 02/15/18 09/23/18 History nitroglycerin 0.4 mg SUBLINGUAL DIRECTED 02/15/18 09/23/18 History pantoprazole [Protonix] 40 mg PO DAILY 02/15/18 09/23/18 History sotalol 80 mg PO BID 02/15/18 09/23/18 History warfarin 2 mg PO 3XWK 02/15/18 09/23/18 History zolpidem 1 tab PO HS 02/15/18 09/23/18 History cyclobenzaprine 10 mg PO TID PRN 09/23/18 09/23/18 History oxycodone-acetaminophen 1 tab PO Q6 PRN 09/23/18 09/23/18 History potassium chloride 20 meq PO DAILY 09/23/18 09/23/18 History warfarin 3 mg PO 4XWK 09/23/18 09/23/18 History Patient History Social History Preferred Language: Iranian Communication Ability: Effective 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 Alert and oriented. HEENT: Anicteric sclera. Neck: No JVD. No bruits. Normal carotid upstrokes bilaterally. Cardiac: PMI was nonpalpable . No ventricular heave. Regular. Normal S1-S2. No murmurs, rubs, or gallops. Pulmonary: Clear to auscultation bilaterally without wheezes, rales, or rhonchi. Abdomen: Soft, nontender, nondistended, with normoactive bowel sounds. No bruits noted. Extremities: 2+ radial pulses bilaterally. Left BKA noted. 1+ right dorsalis pedis pulse. No edema. No cyanosis. Psychiatric: Affect appears appropriate. Results & Data Vital Signs (Past 12 Hours) Vital Signs Temp Pulse Pulse Resp BP BP Pulse Ox 09/23/18 13:00 60 16 145/77 H 96 09/23/18 10:58 36.3 C L 60 18 114/72 98 09/23/18 07:23 57 L 16 92 09/23/18 06:59 36.3 C L 60 19 107/66 98 09/23/18 04:55 57 L 15 97 09/23/18 04:15 36.5 C 64 18 125/73 94 09/23/18 03:59 60 15 107/63 94 09/23/18 03:01 60 18 109/73 96 09/23/18 02:31 60 18 114/65 95 09/23/18 02:01 63 14 104/68 95 Laboratory Results Laboratory Results - last 24 hr 09/22/18 09/22/18 09/22/18 23:15 23:15 23:15 WBC 5.86 RBC 5.00 Hgb 15.6 Hct 44.4 MCV 88.8 MCH 31.2 MCHC 35.1 RDW Std Deviation 41.6 RDW Coeff of Faby 12.8 Plt Count 131 MPV 11.3 H Immature Gran % (Auto) 0.2 Neut % (Auto) 61.2 Lymph % (Auto) 29.7 [place] % (Auto) 6.8 Eos % (Auto) 1.9 Baso % (Auto) 0.2 Immature Gran # (Auto) 0.01 Neut # (Auto) 3.59 Lymph # (Auto) 1.74 [place] # (Auto) 0.40 Eos # (Auto) 0.11 Baso # (Auto) 0.01 PT 22.0 H INR 2.3 H APTT PTT Ratio Sodium 138 Potassium 3.8 Chloride 105 Carbon Dioxide 25 Anion Gap 8.0 BUN 28 H Creatinine 1.47 H Est Cr Clr Drug Dosing 53.6 Est GFR ( Amer) 55.6 Est GFR (Non-Af Amer) 48.0 BUN/Creatinine Ratio 19.0 Glucose 163 H Calcium 9.0 Magnesium 2.2 Total Bilirubin 1.4 H AST 11 L ALT 18 Alkaline Phosphatase 114 Troponin I < 0.015 Total Protein 7.3 Albumin 3.9 Globulin 3.4 Albumin/Globulin Ratio 1.1 09/23/18 09/23/18 09/23/18 04:47 04:47 04:47 WBC 5.12 RBC 4.53 L Hgb 13.8 L Hct 40.1 L MCV 88.5 MCH 30.5 MCHC 34.4 RDW Std Deviation 41.2 RDW Coeff of Faby 12.8 Plt Count 115 L MPV 11.4 H Immature Gran % (Auto) 0.2 Neut % (Auto) 60.7 Lymph % (Auto) 28.7 [place] % (Auto) 8.2 Eos % (Auto) 1.8 Baso % (Auto) 0.4 Immature Gran # (Auto) 0.01 Neut # (Auto) 3.11 Lymph # (Auto) 1.47 [place] # (Auto) 0.42 Eos # (Auto) 0.09 Baso # (Auto) 0.02 PT 22.8 H INR 2.4 H APTT 33.5 H PTT Ratio 1.2 Sodium 139 Potassium 3.7 Chloride 108 H Carbon Dioxide 26 Anion Gap 5.0 BUN 25 H Creatinine 1.16 D Est Cr Clr Drug Dosing 68.0 Est GFR ( Amer) 74.1 Est GFR (Non-Af Amer) 63.9 BUN/Creatinine Ratio 21.6 H Glucose 99 Calcium 8.5 Magnesium Total Bilirubin 1.0 AST 10 L ALT 14 Alkaline Phosphatase 95 Troponin I < 0.015 Total Protein 6.2 L Albumin 3.3 L Globulin 2.9 Albumin/Globulin Ratio 1.1 09/23/18 06:21 WBC RBC Hgb Hct MCV MCH MCHC RDW Std Deviation RDW Coeff of Faby Plt Count MPV Immature Gran % (Auto) Neut % (Auto) Lymph % (Auto) [place] % (Auto) Eos % (Auto) Baso % (Auto) Immature Gran # (Auto) Neut # (Auto) Lymph # (Auto) [place] # (Auto) Eos # (Auto) Baso # (Auto) PT INR APTT PTT Ratio Sodium Potassium Chloride Carbon Dioxide Anion Gap BUN Creatinine Est Cr Clr Drug Dosing Est GFR ( Amer) Est GFR (Non-Af Amer) BUN/Creatinine Ratio Glucose Calcium Magnesium Total Bilirubin AST ALT Alkaline Phosphatase Troponin I < 0.015 Total Protein Albumin Globulin Albumin/Globulin Ratio Diagnostic Findings Echo 09/23/2018: Severely dilated LV with severely reduced systolic function. EF 25-30%. Akinesis of the inferior, inferolateral, and base to mid lateral wall segments. Otherwise, global hypokinesis. RV systolic dysfunction. Severe left atrial dilation. Normal RVSP. ECG personally reviewed: ECG 09/22/2018: Av paced. Telemetry personally reviewed: Paced. No ventricular arrhythmia noted. Medications Administered Current Inpatient Medications Acetaminophen (Ofirmev) 1,000 mg IV Q8H PRN PRN Reason: Pain or Fever Stop: 10/23/18 04:26 Acetaminophen (Tylenol) 650 mg PO Q4H PRN PRN Reason: Pain or Fever Stop: 10/23/18 04:26 Al Hydrox/Mg Hydrox/Simethicone (Maalox) 15 ml PO Q4H PRN PRN Reason: Dyspepsia Stop: 10/23/18 04:26 Aspirin (Ecotrin Ectab) 81 mg PO DAILY [facility] Stop: 10/23/18 08:59 Last Admin: 09/23/18 09:42 Dose: 81 mg Documented by: Atorvastatin Calcium (Lipitor) 20 mg PO DAILY [facility] Stop: 10/23/18 08:59 Last Admin: 09/23/18 09:42 Dose: 20 mg Documented by: Bumetanide (Bumex) 1 mg PO DAILY [facility] Stop: 10/23/18 08:59 Last Admin: 09/23/18 09:43 Dose: 1 mg Documented by: Citalopram Hydrobromide (Celexa) 20 mg PO DAILY [facility] Stop: 10/23/18 08:59 Last Admin: 09/23/18 09:43 Dose: 20 mg Documented by: Cyclobenzaprine HCl (Flexeril) 10 mg PO TID PRN PRN Reason: Muscle Spasm Stop: 10/23/18 04:26 Gabapentin (Neurontin) 600 mg PO BID@1700,2100 [facility] Stop: 10/23/18 16:59 Amiodarone HCl/Dextrose (Nexterone / D5w) 360 mg in 200 mls @ 33.333 mls/hr IV .Q6H [facility] Stop: 09/23/18 18:21 Last Admin: 09/23/18 12:14 Dose: 1 mg/min, 33.3 mls/hr Documented by: Amiodarone HCl/Dextrose (Nexterone / D5w) 360 mg in 200 mls @ 16.667 mls/hr IV .Q12H [facility] Stop: 10/23/18 18:21 Lisinopril (Zestril) 2.5 mg PO DAILY [facility] Stop: 10/23/18 08:59 Last Admin: 09/23/18 09:43 Dose: 2.5 mg Documented by: Lorazepam (Ativan) 0.5 mg PO TID PRN PRN Reason: Anxiety Stop: 10/23/18 04:26 Magnesium Hydroxide (Milk Of Magnesia) 30 ml PO Q12H PRN PRN Reason: Constipation Stop: 10/23/18 04:26 Metoprolol Succinate (Toprol Xl) 50 mg PO DAILY [facility] Stop: 10/23/18 08:59 Last Admin: 09/23/18 09:42 Dose: 50 mg Documented by: Nitroglycerin (Nitrostat) 0.4 mg SL UD PRN PRN Reason: Chest Pain Stop: 10/23/18 04:26 Ondansetron HCl (Zofran) 4 mg IV Q6H PRN PRN Reason: NAUSEA/VOMITING Stop: 10/23/18 04:26 Oxycodone/Acetaminophen (Percocet 5mg/325mg) 1 tab PO Q6 PRN PRN Reason: Pain Stop: 10/07/18 04:26 Pantoprazole Sodium (Protonix) 40 mg PO DAILY [facility] Stop: 10/23/18 08:59 Last Admin: 09/23/18 09:42 Dose: 40 mg Documented by: Potassium Chloride (Klor-Con M10) 20 meq PO DAILY [facility] Stop: 10/23/18 08:59 Last Admin: 09/23/18 09:42 Dose: 20 meq Documented by: Warfarin Sodium (Coumadin) 2 mg PO SuMoTu@1600 [facility] Stop: 10/23/18 15:59 Warfarin Sodium (Coumadin) 3 mg PO WeThFrSa@1600 [facility] Stop: 10/26/18 15:59 Zolpidem Tartrate (Ambien) 10 mg PO HS [facility] Stop: 10/23/18 20:59
[2018-09-23] MEDS: WARFARIN SOD 2 MG TAB PO SCH (16:59)
[2018-09-23] MEDS: GABAPENTIN 600 MG TAB PO SCH ×2 (16:59→20:52)
[2018-09-23] MEDS: AMIODARONE / D5W 360 MG/200 ML BAG IV SCH (17:34)
[2018-09-23] MEDS: ZOLPIDEM TARTRATE 10 MG TAB PO SCH ×2 (20:52→21:57)
[2018-09-24] MEDS: AMIODARONE / D5W 360 MG/200 ML BAG IV SCH ×2 (04:47→15:19)
[2018-09-24 07:00] LABS: Basophils # (auto) 0.02 K/uL (0-0.2); Basophils % (auto) 0.3 %; Eosinophils # (auto) 0.13 K/uL (0-0.5); Eosinophils % (auto) 2.2 %; Hematocrit (blood only) 42.3 % (42-52); Hemoglobin 14.7 g/dL (14.0-18.0); Lymphocytes # (auto) 1.64 K/uL (1.2-3.4); Lymphocytes % (auto) 27.8 %; Mean Corpuscular Hgb Conc 34.8 g/dL (32-36); Mean Corpuscular Volume 88.1 fL (80-100); Mean Platelet Volume 10.5 fL (7.4-10.4); Monocytes # (auto) 0.43 K/uL (0.11-0.59); Monocytes % (auto) 7.3 %; Neutrophils # (auto) 3.68 K/uL (1.4-6.5); Neutrophils % (auto) 62.4 %; Platelet Count 108 K/uL (130-400); RDW Coefficient of Variation 12.9 % (11.5-14.5); RDW Standard Deviation 41.7 fL (36.4-46.3)
[2018-09-24 07:09] LABS: INR 2.5 (0.9-1.1); Prothrombin Time 23.6 Seconds (9.0-12.0)
[2018-09-24 07:39] LABS: Albumin Level 3.4 gm/dl (3.4-5.0); Calcium 8.7 mg/dl (8.5-10.1); Creatinine Clr Calc Pharmacy 61.6 ml/min; Est GFR (African American) 65.7; Est GFR (Non-African American) 56.7; Potassium 3.7 mmol/L (3.5-5.1)
[2018-09-24 07:42] LABS: Albumin Globulin Ratio 1.1 (0.9-2); Bilirubin,Total 1.2 mg/dl (0.2-1); Globulin 3.1 gm/dl (2.5-4.0); Total Protein 6.5 gm/dl (6.4-8.2)
[2018-09-24] MEDS: PANTOprazole 40 MG TAB PO SCH (08:43)
[2018-09-24] MEDS: METOPROLOL SUCC 50MG EXT REL TAB PO SCH (08:43)
[2018-09-24] MEDS: ATORVASTATIN 20 MG TAB PO SCH (08:43)
[2018-09-24] MEDS: BUMETANIDE 1 MG TAB PO SCH (08:43)
[2018-09-24] MEDS: LISINOPRIL 2.5 MG TAB PO SCH (08:44)
[2018-09-24] MEDS: ASPIRIN 81 MG ECTAB PO SCH (08:44)
[2018-09-24] MEDS: CITALOPRAM 20 MG TAB PO SCH (08:44)
[2018-09-24] MEDS: POTASSIUM CHLORIDE 10 MEQ TABCR PO SCH (08:44)
--- NOTE | 2018-09-24 10:04 | Cardiology Progress Note ---
Date of Service September 24, 2018 Assessment & Plan (1) Sustained ventricular tachycardia: He has had no further ventricular tachycardia since admission. He has been off of sotalol since yesterday morning on IV amiodarone, I am going to add oral amiodarone today and overlap until tomorrow morning. That is probably not a good long-term option, therefore we may need to consider transfer or discharge and subsequent follow-up for VT ablation, the family prefers [place]. (2) CAD (coronary artery disease), [place] coronary artery: He has severe coronary artery disease however does not have indication that this was an ischemic event. This is something we may have to consider however. (3) Hypertension: Currently his blood pressure is not elevated, it tends to run fairly low. (4) Chronic systolic (congestive) heart failure: He does not appear to be fluid overloaded, the Optivol recordings in his ICD do not suggest pulmonary congestion. (5) Ischemic cardiomyopathy: He has a severe cardiomyopathy however his ejection fraction measures slightly higher this admission than when last checked in the office, it is pr obably not changed much over the last several years. We could go up more on his medications but in the past his blood pressure has limited our ability to do that. (6) Atrial flutter: He has atrial flutter and atrial fibrillation, he has not had much difficulty with that lately although he did around March of last year. Subjective He has been feeling relatively well, today he is not having cardiovascular symptoms although he is concerned about receiving more ICD shocks. Physical Exam Physical Exam: Constitutional: Alert, cooperative and in no distress. Pulmonary: Clear to auscultation bilaterally. Cardiac: Regular rhythm with no murmur, gallop or rub. Abdomen: Soft, nontender with normal bowel sounds. Extremities: No edema. Skin: No rash, ecchymoses or petechiae. Results & Data Vital Signs (Past 12 Hours) Vital Signs Temp Pulse Pulse Resp BP Pulse Ox 09/24/18 07:37 36.5 C 60 18 110/71 95 09/24/18 03:46 36.4 C L 62 18 100/64 95 09/23/18 23:18 63 16 96 09/23/18 23:07 36.7 C 69 18 106/66 96 Diagnostic Findings Telemetry: Appropriate biventricular paced rhythm, no VT
[2018-09-24] MEDS: AMIODARONE 200 MG TAB PO SCH ×2 (11:04→21:08)
[2018-09-24] MEDS: LORazepam 0.5 MG TAB PO PRN (11:37)
--- NOTE | 2018-09-24 11:37 | Hospitalist Progress Note ---
Date of Service September 24, 2018 Assessment & Plan (1) Paroxysmal ventricular tachycardia: Paroxysmal ventricular tachycardia/status post AICD firing Interrogation by [employer] rep in ED reported many episodes of paroxysmal V. tach. Possible aggravating factors may be his anger outbursts and stress/anxiety? Pt and report he frequently gets shocked when he gets very irritated. ECHO here with slightly improved LV function to 25-30% Has a h/o VTach ablation on 4 different occasions -started on amiodarone gtt here and added po amiodarone today to overlap with gtt for one day -if amiodarone not helping, then considering transfer to or discharge to home and arrangements to f/u for repeat VT ablation in [place] where he has been before Continue metoprolol succinate 50 mg p.o. daily -discontinued his sotalol (2) Obstructive sleep apnea treated with continuous positive airway pressure (CPAP): - to bring in his home CPAP machine and see if it can be adjusted while in the hospital (3) CAD (coronary artery disease), [place] coronary artery: s/p CABG x4 and circumflex stent. As per pt, he has 3 of 4 grafts failed on most recent catheterization. Troponins here neg x 3 after admission despite getting shocked with AICD, no evidence of ACS -Continue ASA 81 mg daily -Continue statin and consider increasing to high intensity -continue Toprol XL 50mg daily and increase upward as tolerated (4) Hypertension: BPs tend to run low actually on meds for ischemic CM (5) Hyperlipidemia LDL goal <70: Continue atorvastatin 20 mg p.o. daily and consider increasing dose for severe CAD (6) Anxiety: Worsened by repeated ICD shocks -Continue citalopram, gabapentin, lorazepam prn and zolpidem (7) GERD (gastroesophageal reflux disease): Continue pantoprazole 40 mg daily (8) Chronic pain syndrome: Continue cyclobenzaprine, gabapentin and oxycodone-acetaminophen. (9) Atrial flutter: none on pacer interrogation since 03/2018 -continue AC with coumadin, INR 2.5 today -continue beta shaun, amiodarone (10) Ischemic cardiomyopathy: EF 25-30% slightly improved from previous, with WMAs on ECHO. Not volume overloaded here -continue ASA, Toprol, lisinopril, bumex, potassium -follow daily weights, I/Os, low Na+ diet (11) Chronic systolic (congestive) heart failure: as above in "ischemic cardiomyopathy" (12) DVT prophylaxis: Coumadin Dispo-remain on tele for likely 1-2 more days and then either dc to home or transfer to tertiary care center for repeat VT ablation if needed Subjective Pt feels very anxious, is worried about getting shocked again. His at the bedside reports he has "been shocked 40 times." No chest pain , no SOB. Tele with paced rhythm, no VT. Discussed the case with Cardiology Review of Systems 2 Review of Systems: All systems reviewed & are unremarkable except as noted in HPI & below Physical Exam Constitutional: WD/WN, vitals as above Eyes: PERRL, conjunctivae normal, anicteric sclerae ENMT: external ear and nose normal, oropharynx normal Neck: trachea midline, no thyromegaly Respiratory: normal respiratory effort, lungs clear to auscultation Cardiovascular: RRR, no murmur, no edema Gastrointestinal (Abdomen): normal bowel sounds, soft, nontender, no hepatosplenomegaly Musculoskeletal: Extremities: extremities normal to inspection; no cyanosis and no clubbing Skin: no rashes, warm and dry Neurologic: moves all extremities and awake; no focal motor deficits Psychiatric: Orientation: alert and oriented x 3 Eye Contact: good eye contact Speech: normal rate/rhythm/volume of speech Affect: + anxious affect Results & Data Vital Signs (Past 12 Hours) Vital Signs Temp Pulse Resp BP Pulse Ox 09/24/18 10:46 36.6 C 59 L 19 108/69 95 09/24/18 07:37 36.5 C 60 18 110/71 95 09/24/18 03:46 36.4 C L 62 18 100/64 95 Laboratory Results 09/24/18 09/24/18 09/24/18 Range/Units 06:46 06:46 06:46 WBC 5.90 (4.8-10.8) K/uL RBC 4.80 (4.7-6.1) M/uL Hgb 14.7 (14.0-18.0) g/dL Hct 42.3 (42-52) % MCV 88.1 (80-100) fL MCH 30.6 (25-34) pg MCHC 34.8 (32-36) g/dL RDW Std Deviation 41.7 (36.4-46.3) fL RDW Coeff of Faby 12.9 (11.5-14.5) % Plt Count 108 L (130-400) K/uL MPV 10.5 H (7.4-10.4) fL Immature Gran % (Auto) 0.0 % Neut % (Auto) 62.4 % Lymph % (Auto) 27.8 % [place] % (Auto) 7.3 % Eos % (Auto) 2.2 % Baso % (Auto) 0.3 % Immature Gran # (Auto) 0.00 (0.00-0.02) K/uL Neut # (Auto) 3.68 (1.4-6.5) K/uL Lymph # (Auto) 1.64 (1.2-3.4) K/uL [place] # (Auto) 0.43 (0.11-0.59) K/uL Eos # (Auto) 0.13 (0-0.5) K/uL Baso # (Auto) 0.02 (0-0.2) K/uL PT 23.6 H (9.0-12.0) Seconds INR 2.5 H (0.9-1.1) Sodium 140 (136-145) mmol/L Potassium 3.7 (3.5-5.1) mmol/L Chloride 105 (98-107) mmol/L Carbon Dioxide 27 (21-32) mmol/L Anion Gap 8.0 (3-11) BUN 22 H (7-18) mg/dl Creatinine 1.28 (0.6-1.4) mg/dl Est Cr Clr Drug Dosing 61.6 ml/min Est GFR ( Amer) 65.7 Est GFR (Non-Af Amer) 56.7 BUN/Creatinine Ratio 17.0 (10-20) Glucose 94 (70-99) mg/dl Calcium 8.7 (8.5-10.1) mg/dl Total Bilirubin 1.2 H (0.2-1) mg/dl AST 11 L (15-37) U/L ALT 14 (12-78) U/L Alkaline Phosphatase 99 (45-117) U/L Total Protein 6.5 (6.4-8.2) gm/dl Albumin 3.4 (3.4-5.0) gm/dl Globulin 3.1 (2.5-4.0) gm/dl Albumin/Globulin Ratio 1.1 (0.9-2)
[2018-09-24] MEDS: WARFARIN SOD 2 MG TAB PO SCH (15:20)
[2018-09-24] MEDS: GABAPENTIN 600 MG TAB PO SCH ×2 (16:31→21:08)
[2018-09-24] MEDS: ZOLPIDEM TARTRATE 10 MG TAB PO SCH (22:06)
[2018-09-25] MEDS: AMIODARONE / D5W 360 MG/200 ML BAG IV SCH ×2 (04:21→14:42)
[2018-09-25 07:30] LABS: Hematocrit (blood only) 41.6 % (42-52); Hemoglobin 14.4 g/dL (14.0-18.0); Mean Corpuscular Hgb Conc 34.6 g/dL (32-36); Mean Corpuscular Volume 88.1 fL (80-100); RDW Coefficient of Variation 12.7 % (11.5-14.5); RDW Standard Deviation 40.9 fL (36.4-46.3); Red Blood Count 4.72 M/uL (4.7-6.1); White Blood Count 4.95 K/uL (4.8-10.8)
[2018-09-25 07:37] LABS: INR 2.5 (0.9-1.1); Prothrombin Time 23.6 Seconds (9.0-12.0)
[2018-09-25 07:57] LABS: Albumin Level 3.3 gm/dl (3.4-5.0); BUN Creatinine Ratio 17.9 (10-20); Calcium 8.5 mg/dl (8.5-10.1); Creatinine Clr Calc Pharmacy 66.5 ml/min; Est GFR (African American) 73.3; Est GFR (Non-African American) 63.2; Magnesium 2.2 mg/dl (1.8-2.4); Potassium 3.6 mmol/L (3.5-5.1)
[2018-09-25 07:59] LABS: Bilirubin,Total 1.1 mg/dl (0.2-1); Globulin 3.2 gm/dl (2.5-4.0); Total Protein 6.5 gm/dl (6.4-8.2)
[2018-09-25 08:07] LABS: Basophils # (auto) 0.02 K/uL (0-0.2); Basophils % (auto) 0.4 %; Immature Granulocytes # (auto) 0.01 K/uL (0.00-0.02); Immature Granulocytes % (auto) 0.2 %; Lymphocytes # (auto) 1.29 K/uL (1.2-3.4); Lymphocytes % (auto) 26.1 %; Mean Platelet Volume 10.8 fL (7.4-10.4); Monocytes # (auto) 0.32 K/uL (0.11-0.59); Monocytes % (auto) 6.5 %; Neutrophils # (auto) 3.21 K/uL (1.4-6.5); Neutrophils % (auto) 64.8 %; Platelet Count 99 K/uL (130-400); Platelet Estimate Decreased (Normal)
[2018-09-25] MEDS: AMIODARONE 200 MG TAB PO SCH (08:14)
[2018-09-25] MEDS: BUMETANIDE 1 MG TAB PO SCH (08:15)
[2018-09-25] MEDS: ASPIRIN 81 MG ECTAB PO SCH (08:15)
[2018-09-25] MEDS: CITALOPRAM 20 MG TAB PO SCH (08:15)
[2018-09-25] MEDS: ATORVASTATIN 20 MG TAB PO SCH (08:15)
[2018-09-25] MEDS: METOPROLOL SUCC 50MG EXT REL TAB PO SCH (08:17)
[2018-09-25] MEDS: PANTOprazole 40 MG TAB PO SCH (08:17)
[2018-09-25] MEDS: LISINOPRIL 2.5 MG TAB PO SCH (08:17)
[2018-09-25] MEDS: POTASSIUM CHLORIDE 10 MEQ TABCR PO SCH (08:17)
--- NOTE | 2018-09-25 08:42 | Cardiology Progress Note ---
Date of Service September 25, 2018 Assessment & Plan (1) Sustained ventricular tachycardia: He has now had an episode of sustained ventricular tachycardia requiring antitachycardia pacing while on both intravenous amiodarone and starting oral. In addition he probably had pulmonary toxicity in the past from amiodarone as this is not a good long-term solution and it is not working. It is very unlikely other antiarrhythmics would work. At this point we probably should consider transfer for ablation, he would prefer to go to [place] and was under the care of Dr. Le at [facility]. I will contact them and see if they will accept him in transfer. For now I am going to continue IV amiodarone and discontinue the oral. (2) CAD (coronary artery disease), [place] coronary artery: He has severe coronary artery disease however does not have indication that this was an ischemic event. Despite all of ventricular tachycardia preceding his admission his cardiac enzymes were negative making ischemia unlikely and this is similar to his prior tachycardia which was nonischemic. This is something we may have to consider however but at this point I do not think we need catheterization. (3) Hypertension: Currently his blood pressure is not elevated, it tends to run fairly low. (4) Chronic systolic (congestive) heart failure: He does not appear to be fluid overloaded, the Optivol recordings in his ICD do not suggest pulmonary congestion and his exam does not suggest it. (5) Ischemic cardiomyopathy: He has a severe cardiomyopathy however his ejection fraction measures slightly higher this admission than when last checked in the office, it is probably not changed much over the last several years. We could go up more on his medications but in the past his blood pressure has limited our ability to do that and with stabilization of his ejection fraction I have not done that. (6) Atrial flutter: He has had atrial flutter and atrial fibrillation, he has not had much difficulty with that lately although he did around March of last year. He has been in sinus rhythm and atrial pacing recently and this hospitalization. Subjective Physically he feels well today, he is anxious about having more episodes of ventricular tachycardia and receiving shocks. He had VT during the night but does not recall feeling it, it was not treated with a shock but rather by antitachycardia pacing. He has had no chest discomfort. Physical Exam Physical Exam: Constitutional: Alert, cooperative and in no distress. Pulmonary: Clear to auscultation bilaterally. Cardiac: Regular rhythm with no murmur, gallop or rub. Abdomen: Soft, nontender with normal bowel sounds. Extremities: No edema. Skin: No rash, ecchymoses or petechiae. Results & Data Vital Signs (Past 12 Hours) Vital Signs Temp Pulse Pulse Pulse Resp BP Pulse Ox 09/25/18 07:40 37.0 C 60 18 109/76 96 09/25/18 03:08 36.5 C 60 19 102/69 94 09/24/18 23:20 60 16 96 09/24/18 23:10 36.5 C 60 19 101/62 95 Diagnostic Findings ECG: Appropriate atrial and biventricular pacing Telemetry: Pacing with one episode of sustained ventricular tachycardia at about 2:30 AM, terminated with one burst of antitachycardia pacing
[2018-09-25] MEDS: LORazepam 0.5 MG TAB PO PRN (08:47)
[2018-09-25] MEDS ORDERED: POTASSIUM CHLORIDE 10 MEQ TABCR PO ONE (09:30)
[2018-09-25] MEDS: WARFARIN SOD 2 MG TAB PO SCH (15:31)
[2018-09-25] MEDS: GABAPENTIN 600 MG TAB PO SCH ×2 (16:34→19:57)
[2018-09-25] MEDS ORDERED: LORazepam 0.5 MG TAB ONE (19:55)
[2018-09-25] MEDS: LORazepam 0.5 MG TAB PO SCH (20:35)
[2018-09-25] MEDS: ZOLPIDEM TARTRATE 10 MG TAB PO SCH (22:00)
--- NOTE | 2018-09-25 23:21 | Hospitalist Progress Note ---
Date of Service September 25, 2018 Assessment & Plan (1) Paroxysmal ventricular tachycardia: Paroxysmal ventricular tachycardia/status post AICD firing prior to admission Interrogation by [employer] rep in ED reported many episodes of paroxysmal V. tach. Possible aggravating factors may be his anger outbursts and stress/anxiety? Pt and report he frequently gets shocked when he gets very irritated. ECHO here with slightly improved LV function to 25-30% Troponin negative x3 therefore ischemia did not play a role in his ventricular tachycardia storm Has a h/o VTach ablation on 4 different occasions -Discontinued his sotalol upon admission in favor of starting amiodarone again which she had failed in the past -started on amiodarone gtt here and added po amiodarone but continued to have ventricular tachycardia episode of which he paced out of on telemetry last night -DC p.o. amiodarone and continue IV amiodarone only for now -Continue metoprolol -Awaiting for cardiology here to receive a call back from the patient's scanner supervisor at [facility] to discuss the case regarding if he should have a repeat VT ablation-we will transfer if accepted there -Continue monitoring on telemetry -Keep potassium equal to or greater than 4 and magnesium equal to or greater than 2-replaced with extra potassium today -If has recurrent ventricular tachycardia storm while here, discussed with overnight MD to contact Dr. Sanders regarding which antiarrhythmic to start next-consider lidocaine (2) Obstructive sleep apnea treated with continuous positive airway pressure (CPAP): - to bring in his home CPAP machine and see if it can be adjusted while in the hospital (3) CAD (coronary artery disease), [place] coronary artery: s/p CABG x4 and circumflex stent. As per pt, he has 3 of 4 grafts failed on most recent catheterization. Troponins here neg x 3 after admission despite getting shocked with AICD, no evidence of ACS -Continue ASA 81 mg daily -Continue statin and consider increasing to high intensity -continue Toprol XL 50mg daily and increase upward as tolerated (4) Hypertension: BPs tend to run low actually on meds for ischemic CM (5) Hyperlipidemia LDL goal <70: Continue atorvastatin 20 mg p.o. daily and consider increasing dose for severe CAD (6) Anxiety: Worsened by repeated ICD shocks -Continue citalopram, gabapentin, and zolpidem - will make his Lorazepam 0.5 mg p.o. twice daily on a scheduled basis to decrease anxiety in an effort to reduce catecholamine release to avoid V. tach storm (7) GERD (gastroesophageal reflux disease): Continue pantoprazole 40 mg daily (8) Chronic pain syndrome: Continue cyclobenzaprine, gabapentin and oxycodone-acetaminophen. (9) Atrial flutter: none on pacer interrogation since 03/2018 -continue AC with coumadin, INR 2.5 again today -continue beta shaun, amiodarone (10) Ischemic cardiomyopathy: EF 25-30% slightly improved from previous, with WMAs on ECHO. Not volume overloaded here -continue ASA, Toprol, lisinopril, bumex, potassium -follow daily weights, I/Os, low Na+ diet (11) Chronic systolic (congestive) heart failure: as above in "ischemic cardiomyopathy" (12) DVT prophylaxis: Coumadin Dispo-awaiting transfer to [facility] with Dr. Le as accepting physician-awaiting Dr. jaramillo doctor discussion between scanner supervisor and accepting physician Subjective Patient denies any issues today except anxiety. He did have one episode of ventricular tachycardia last evening for approximately 7 beats that his pacer paced him out of. Otherwise he remains in a paced rhythm with rates in the 60s. He was asleep at the time of the V. tach. He denies chest pain or shortness of breath. I discussed the case at length with the reference librarian today and we are awaiting an accepting physician, specifically the patient's previous scanner supervisor who performed his ventricular tachycardia ablations at [facility]. The patient is agreeable to transfer there if accepted Review of Systems Review of Systems: All systems reviewed & are unremarkable except as noted in HPI & below Physical Exam Constitutional: WD/WN, vitals as above Eyes: PERRL, conjunctivae normal, anicteric sclerae ENMT: external ear and nose normal, oropharynx normal Neck: trachea midline, no thyromegaly Respiratory: normal respiratory effort, lungs clear to auscultation Cardiovascular: RRR, no murmur, no edema Gastrointestinal (Abdomen): normal bowel sounds, soft, nontender, no hepatosplenomegaly Musculoskeletal: Extremities: extremities normal to inspection; no cyanosis and no clubbing Skin: no rashes, warm and dry Neurologic: moves all extremities and awake; no focal motor deficits Psychiatric: Orientation: alert and oriented x 3 Eye Contact: good eye contact Speech: normal rate/rhythm/volume of speech Affect: + anxious affect Results & Data Vital Signs (Past 12 Hours) Vital Signs Temp Pulse Resp BP BP Pulse Ox 09/25/18 19:41 36.4 C L 63 20 114/73 96 09/25/18 15:00 37.0 C 63 18 115/73 94 09/25/18 11:39 36.9 C 72 16 110/69 99 Laboratory Results 09/25/18 09/25/18 09/25/18 Range/Units 06:57 06:57 06:57 WBC 4.95 (4.8-10.8) K/uL RBC 4.72 (4.7-6.1) M/uL Hgb 14.4 (14.0-18.0) g/dL Hct 41.6 L (42-52) % MCV 88.1 (80-100) fL MCH 30.5 (25-34) pg MCHC 34.6 (32-36) g/dL RDW Std Deviation 40.9 (36.4-46.3) fL RDW Coeff of Faby 12.7 (11.5-14.5) % Plt Count 99 L (130-400) K/uL MPV 10.8 H (7.4-10.4) fL Immature Gran % (Auto) 0.2 % Neut % (Auto) 64.8 % Lymph % (Auto) 26.1 % Sutter % (Auto) 6.5 % Eos % (Auto) 2.0 % Baso % (Auto) 0.4 % Immature Gran # (Auto) 0.01 (0.00-0.02) K/uL Neut # (Auto) 3.21 (1.4-6.5) K/uL Lymph # (Auto) 1.29 (1.2-3.4) K/uL Sutter # (Auto) 0.32 (0.11-0.59) K/uL Eos # (Auto) 0.10 (0-0.5) K/uL Baso # (Auto) 0.02 (0-0.2) K/uL Platelet Estimate Decreased L (Normal) PT 23.6 H (9.0-12.0) Seconds INR 2.5 H (0.9-1.1) Sodium 137 (136-145) mmol/L Potassium 3.6 (3.5-5.1) mmol/L Chloride 104 (98-107) mmol/L Carbon Dioxide 27 (21-32) mmol/L Anion Gap 6.0 (3-11) BUN 21 H (7-18) mg/dl Creatinine 1.17 (0.6-1.4) mg/dl Est Cr Clr Drug Dosing 66.5 ml/min Est GFR ( Amer) 73.3 Est GFR (Non-Af Amer) 63.2 BUN/Creatinine Ratio 17.9 (10-20) Glucose 93 (70-99) mg/dl Calcium 8.5 (8.5-10.1) mg/dl Magnesium 2.2 (1.8-2.4) mg/dl Total Bilirubin 1.1 H (0.2-1) mg/dl AST 9 L (15-37) U/L ALT 13 (12-78) U/L Alkaline Phosphatase 100 (45-117) U/L Total Protein 6.5 (6.4-8.2) gm/dl Albumin 3.3 L (3.4-5.0) gm/dl Globulin 3.2 (2.5-4.0) gm/dl Albumin/Globulin Ratio 1.0 (0.9-2)
[2018-09-26] MEDS: AMIODARONE / D5W 360 MG/200 ML BAG IV SCH ×2 (02:27→13:54)
[2018-09-26 07:20] LABS: INR 2.5 (0.9-1.1)
[2018-09-26] MEDS: PANTOprazole 40 MG TAB PO SCH (07:38)
[2018-09-26] MEDS: LORazepam 0.5 MG TAB PO SCH ×2 (07:38→19:08)
[2018-09-26] MEDS: CITALOPRAM 20 MG TAB PO SCH (07:39)
[2018-09-26] MEDS: POTASSIUM CHLORIDE 10 MEQ TABCR PO SCH (07:39)
[2018-09-26] MEDS: ASPIRIN 81 MG ECTAB PO SCH (07:39)
[2018-09-26] MEDS: METOPROLOL SUCC 50MG EXT REL TAB PO SCH (07:39)
[2018-09-26] MEDS: LISINOPRIL 2.5 MG TAB PO SCH (07:39)
[2018-09-26] MEDS: ATORVASTATIN 20 MG TAB PO SCH (07:39)
[2018-09-26 07:42] LABS: BUN Creatinine Ratio 14.5 (10-20); Calcium 8.9 mg/dl (8.5-10.1); Creatinine Clr Calc Pharmacy 57.2 ml/min; Est GFR (African American) 61.1; Est GFR (Non-African American) 52.7; Magnesium 2.2 mg/dl (1.8-2.4); Potassium 3.8 mmol/L (3.5-5.1)
--- NOTE | 2018-09-26 09:33 | Cardiology Progress Note ---
Date of Service September 26, 2018 Assessment & Plan (1) Sustained ventricular tachycardia: He has now had an episode of sustained ventricular tachycardia requiring antitachycardia pacing while on both intravenous amiodarone and starting oral. In addition he probably had pulmonary toxicity in the past from amiodarone so this is not a good long-term solution and it is not working extremely well although it is seemingly controlling his arrhythmia in IV form. It is very unlikely other antiarrhythmics would work. At this point we need to transfer for ablation, he would prefer to go to [place] and was under the care of Dr. Le at [facility]. I have made arrangements with Dr. De La Rosa at [place] and he will accept the patient today, transportation arrangements are in the process of being made. For now I am going to continue IV amiodarone, I believe he is stable for ground transportation. (2) CAD (coronary artery disease), [place] coronary artery: He has severe coronary artery disease however does not have indication that this was an ischemic event. Despite all of ventricular tachycardia preceding his admission his cardiac enzymes were negative making ischemia unlikely and this is similar to his prior tachycardia which was nonischemic. This is something we may have to consider however but at this point I do not think we need catheterization. (3) Hypertension: Currently his blood pressure is not elevated, it tends to run fairly low. (4) Chronic systolic (congestive) heart failure: He does not appear to be fluid overloaded, the Optivol recordings in his ICD do not suggest pulmonary congestion and his exam does not suggest it. (5) Ischemic cardiomyopathy: He has a severe cardiomyopathy however his ejection fraction measures slightly higher this admission than when last checked in the office, it is probably not changed much over the last several years. We could go up more on his medications but in the past his blood pressure has limited our ability to do that and with stabilization of his ejection fraction I have not done that. (6) Atrial flutter: He has had atrial flutter and atrial fibrillation, he has not had much difficulty with that lately although he did around March of last year. He has been in sinus rhythm and atrial pacing recently and this hospitalization. Subjective He feels well today, he has no symptoms of palpitations (he has had no further VT), so far he is tolerating intravenous amiodarone well. No chest discomfort. Physical Exam Physical Exam: Constitutional: Alert, cooperative and in no distress. Pulmonary: Clear to auscultation bilaterally. Cardiac: Regular rhythm with no murmur, gallop or rub. Abdomen: Soft, nontender with normal bowel sounds. Extremities: No edema. Skin: No rash, ecchymoses or petechiae. Results & Data Vital Signs (Past 12 Hours) Vital Signs Temp Pulse Pulse Pulse Resp BP Pulse Ox 09/26/18 08:00 36.3 C L 62 17 133/77 97 09/26/18 05:28 61 14 97 09/26/18 03:50 36.9 C 62 18 117/72 95 09/26/18 02:56 64 16 96 09/25/18 23:53 36.8 C 70 18 118/74 95 09/25/18 23:27 60 18 97 Diagnostic Findings Telemetry: Dual-chamber pacemaker predominantly, no ventricular tachycardia overnight
[2018-09-26] MEDS: BUMETANIDE 1 MG TAB PO SCH ×2 (10:58→19:04)
--- NOTE | 2018-09-26 11:14 | Discharge Summary ---
Date of Service September 26, 2018 Admission HPI Per Admitting Provider The patient is a 67-year-old male with a past medical history including paroxysmal ventricular tachycardia, chronic systolic heart failure, syncope, unstable angina, GERD and obstructive sleep apnea who reports that he noticed his heart rate increasing from 70 beats minute 140 bpm, and then his AICD fired twice today. He notes that he has gotten a new CPAP machine recently, and has not been able to wear it the past 2 days due to mask need to be adjusted. His also reports that over the past month, that when he eats any food, it seems to osuna right through him as loose stools that he has to run to the bathroom. During our discussion, the patient and his asked if being angry could make his AICD fire. They report that he can get extremely angry over a number of things, and he became very upset over something he read in the paper today, and within a few minutes he noted the symptoms above and his AICD firing. Principal Diagnosis Sustained ventricular tachycardia Discharge Exam Constitutional WD/WN, vitals as above Eyes PERRL, conjunctivae normal, anicteric sclerae ENMT external ear and nose normal, oropharynx normal Neck trachea midline, no thyromegaly Respiratory normal respiratory effort, lungs clear to auscultation Cardiovascular RRR, no murmur, no edema Gastrointestinal (Abdomen) normal bowel sounds, soft, nontender, no hepatosplenomegaly Musculoskeletal Extremities: + extremities abnormal to inspection (left BKA), no cyanosis and no clubbing Skin no rashes, warm and dry Neurologic moves all extremities and awake; no focal motor deficits Psychiatric A+Ox3, euthymic affect Eye Contact: good eye contact Speech: normal rate/rhythm/volume of speech Discharge Data Allergies Allergy/AdvReac Type Severity Reaction Status Date / Time heparin Allergy Severe CAUSES HIT Verified 02/15/18 21:29 silver AdvReac Unknown TOPICAL - Verified 02/15/18 21:29 BURNING, PAIN Consultations 09/23/18 01:27 ED Decision to Admit Stat 09/23/18 04:27 Consult Cardiology Routine Consult Case Management - Discharge Planning Routine Procedures Performed ECHO Ordered Studies CXR Hospital Course (1) Paroxysmal ventricular tachycardia: Paroxysmal ventricular tachycardia/status post AICD firing prior to admission Interrogation by [employer] rep in ED reported many episodes of paroxysmal V. tach. Possible aggravating factors may be his anger outbursts and stress/anxiety? Pt and report he frequently gets shocked when he gets very irritated. ECHO here with slightly improved LV function to 25-30% Troponin negative x3 therefore ischemia did not play a role in his ventricular tachycardia storm Has a h/o VTach ablation on 4 different occasions -Discontinued his sotalol upon admission in favor of starting amiodarone again which he had failed in the past -started on amiodarone gtt here and added po amiodarone but continued to have ventricular tachycardia episode of which he paced out of -DCd p.o. amiodarone and continued IV amiodarone only for now -plan for transfer to [facility] today for consideration for repeat VT ablation -accepting physician is Dr. Barnard-case was discussed with [facility] by Dr. Sanders -Continue metoprolol -Continue monitoring on telemetry -Keep potassium equal to or greater than 4 and magnesium equal to or greater than 2 (2) Obstructive sleep apnea treated with continuous positive airway pressure (CPAP): -continue CPAP qhs (3) CAD (coronary artery disease), [place] coronary artery: s/p CABG x4 and circumflex stent. As per pt, he has 3 of 4 grafts failed on most recent catheterization. Troponins here neg x 3 after admission despite getting shocked with AICD, no evidence of ACS -Continue ASA 81 mg daily -Continue statin and consider increasing to high intensity -continue Toprol XL 50mg daily and increase upward as tolerated (4) Hypertension: BPs tend to run low actually on meds for ischemic CM (5) Hyperlipidemia LDL goal <70: Continue atorvastatin 20 mg p.o. daily and consider increasing dose for severe CAD (6) Anxiety: Worsened by repeated ICD shocks -Continue citalopram, gabapentin, and zolpidem - made his Lorazepam 0.5 mg p.o. twice daily on a scheduled basis to decrease anxiety in an effort to reduce catecholamine release to avoid V. tach storm (7) GERD (gastroesophageal reflux disease): Continue pantoprazole 40 mg daily (8) Chronic pain syndrome: Continue cyclobenzaprine, gabapentin and oxycodone-acetaminophen prn (9) Atrial flutter: none on pacer interrogation since 03/2018 -continue AC with coumadin, INR 2.5 again today -continue beta shaun, amiodarone (10) Ischemic cardiomyopathy: EF 25-30% slightly improved from previous, with WMAs on ECHO. Not volume overloaded here -continue ASA, Toprol, lisinopril, bumex, potassium -follow daily weights, I/Os, low Na+ diet (11) Chronic systolic (congestive) heart failure: as above in "ischemic cardiomyopathy" (12) DVT prophylaxis: Coumadin Dispo- transfer to [facility] with Dr. Barnard as accepting physician TODAY-appreciate this transfer Total Time Total Time Spent Total Time Spent (In Minutes): >30 min Total Time Includes: Examination of the Patient, Discharge Planning, Medication Reconciliation and Communication With Other Providers (Cardiology) Discharge Plan Discharge Items Patient Disposition: Transfer Acute Care Hospital Reason For Visit: VENTRICULAR TACHYCARDIA, S/P AICD FIRE X 2 Discharge Diagnosis: Ventricular tachycardia storm, AICD firing x 2 Condition: Fair Discharge Goals: Decrease discomfort, Diagnostic testing, Improve disease control, Learn about illness, Prevent disease and Therapeutic intervention Activity: As commented below Lifting: None Bathing: No limitations Exercise/Sports: Rest today Non-emergency contact: Primary Care Provider and Director Cardiac Call non-emergency contact if: you have any medication questions and your symptoms worsen Follow-up/Referrals: Bandar Sanders MD [Physician] - (Follow up after discharge from [facility] ) Will Ritchie MD [Primary Care Provider] - Diet: Heart Healthy Addtl Provider Instructions: Transferred to [facility] Prescriptions: New amiodarone in dextrose,iso-osm 360 mg/200 mL (1.8 mg/mL) solution 30 mg IV .q1 Qty: 2000 RF: 0 Continued gabapentin 600 mg Tablet 600 mg PO BID RF: 0 atorvastatin 20 mg Tablet 20 mg PO DAILY RF: 0 metoprolol succinate 50 mg Tablet Extended Release 24 Hr 50 mg PO DAILY RF: 0 aspirin [Aspirin Low Dose] 81 mg Tablet,Delayed Release (Dr/Ec) 81 mg PO DAILY RF: 0 citalopram 20 mg Tablet 20 mg PO DAILY RF: 0 lorazepam 0.5 mg Tablet 0.5 mg PO TID PRN (Reason: Anxiety) RF: 0 pantoprazole [Protonix] 40 mg Tablet,Delayed Release (Dr/Ec) 40 mg PO DAILY RF: 0 warfarin 2 mg Tablet 2 mg PO 3XWK RF: 0 nitroglycerin 0.4 mg Tablet, Sublingual 0.4 mg Sublingual DIRECTED RF: 0 bumetanide 1 mg Tablet 1 mg PO DAILY RF: 0 zolpidem 10 mg Tablet 1 tab PO HS RF: 0 lisinopril 2.5 mg Tablet 2.5 mg PO DAILY RF: 0 oxycodone-acetaminophen 5-325 mg tablet 1 tab PO Q6 PRN (Reason: Pain) RF: 0 cyclobenzaprine 10 mg tablet 10 mg PO TID PRN (Reason: Muscle Spasm) RF: 0 potassium chloride 10 mEq capsule, extended release 20 meq PO DAILY RF: 0 warfarin 1 mg tablet 3 mg PO 4XWK RF: 0 Discontinued sotalol 80 mg tablet 80 mg PO BID RF: 0 Stand-Alone Forms: [facility] Discharge Orders: Discharge Order (Routine); Ordered 09/26/18 Ordered By: Xiao Alvarado Admission Data Admit Date/Time: 09/23/18 03:19 Attending Provider: Xiao Alvarado Admit Provider: Sher Martin Primary Care Provider: Will Ritchie Other Providers: Sher Martin ; Magdaleno Adkins Service: Telemetry Other Pending Studies at Discharge: No
[2018-09-26] MEDS: GABAPENTIN 600 MG TAB PO SCH ×2 (16:39→22:12)
[2018-09-26] MEDS: WARFARIN SOD 3 MG TAB PO SCH (16:40)
[2018-09-26] MEDS: ZOLPIDEM TARTRATE 10 MG TAB PO SCH (22:12)
[2018-09-27] MEDS: AMIODARONE / D5W 360 MG/200 ML BAG IV SCH ×3 (01:23→22:17)
[2018-09-27 07:02] LABS: BUN Creatinine Ratio 16.6 (10-20); Calcium 8.7 mg/dl (8.5-10.1); Creatinine Clr Calc Pharmacy 63.9 ml/min; Est GFR (Non-African American) 59.5; Magnesium 2.2 mg/dl (1.8-2.4); Potassium 3.7 mmol/L (3.5-5.1)
--- NOTE | 2018-09-27 08:34 | Cardiology Progress Note ---
Date of Service September 27, 2018 Assessment & Plan (1) Sustained ventricular tachycardia: He has now had an episode of sustained ventricular tachycardia requiring antitachycardia pacing while on both intravenous amiodarone and starting oral. In addition he probably had pulmonary toxicity in the past from amiodarone so this is not a good long-term solution and it is not working extremely well although it is seemingly controlling his arrhythmia in IV form. It is very unlikely other antiarrhythmics would work. At this point we need to transfer for ablation, he would prefer to go to [place] and was under the care of Dr. Le at [facility]. I have made arrangements with Dr. De La Rosa at [place] and he will accept the patient, unfortunately it seems that a bed is not available and although we have approval to transfer the patient he is waiting for a bed. For now I am going to continue IV amiodarone, I believe he is stable for ground transportation. (2) CAD (coronary artery disease), [place] coronary artery: He has severe coronary artery disease however does not have indication that this was an ischemic event. Despite all of ventricular tachycardia preceding his admission his cardiac enzymes were negative making ischemia unlikely and this is similar to his prior tachycardia which was not due to active ischemia. This is something we may have to consider however but at this point I do not think we need catheterization and I would certainly not do stress testing. (3) Hypertension: Currently his blood pressure is not elevated, it tends to run fairly low. (4) Chronic systolic (congestive) heart failure: He does not appear to be fluid overloaded, the Optivol recordings in his ICD do not suggest pulmonary congestion and his exam does not suggest it. (5) Ischemic cardiomyopathy: He has a severe cardiomyopathy however his ejection fraction measures slightly higher this admission than when last checked in the office, it is probably not changed much over the last several years. We could go up more on his medications but in the past his blood pressure has limited our ability to do that and with stabilization of his ejection fraction I have not done that. We could also consider a switch from lisinopril to Entresto, but I have not done that as yet. (6) Atrial flutter: He has had difficulty with atrial flutter and atrial fibrillation in the past, he has not had much difficulty with that lately although he did around March of last year. He has been in sinus rhythm and atrial pacing recently and during this hospitalization. Subjective He is feeling well today. He is disappointed that he was not able to be transferred to [place] yesterday. He does not have chest discomfort or shortness of breath. Physical Exam 2 Physical Exam: Constitutional: Alert, cooperative and in no distress. Pulmonary: Clear to auscultation bilaterally. Cardiac: Regular rhythm with no murmur, gallop or rub. Abdomen: Soft, nontender with normal bowel sounds. Extremities: No edema. Leg prosthesis in place. Skin: No rash, ecchymoses or petechiae. Results & Data Vital Signs (Past 12 Hours) Vital Signs Temp Pulse Pulse Resp BP BP Pulse Ox 09/27/18 07:32 36.2 C L 61 16 107/70 95 09/27/18 03:37 36.8 C 58 L 19 104/66 97 09/27/18 00:55 77 09/26/18 23:09 36.5 C 62 18 131/83 98 Diagnostic Findings Telemetry: Paced rhythm, no ventricular tachycardia
[2018-09-27] MEDS: LORazepam 0.5 MG TAB PO SCH ×2 (09:32→22:17)
[2018-09-27] MEDS: ASPIRIN 81 MG ECTAB PO SCH (09:32)
[2018-09-27] MEDS: METOPROLOL SUCC 50MG EXT REL TAB PO SCH (09:32)
[2018-09-27] MEDS: PANTOprazole 40 MG TAB PO SCH (09:32)
[2018-09-27] MEDS: ATORVASTATIN 20 MG TAB PO SCH (09:32)
[2018-09-27] MEDS: LISINOPRIL 2.5 MG TAB PO SCH (09:32)
[2018-09-27] MEDS: CITALOPRAM 20 MG TAB PO SCH (09:32)
[2018-09-27] MEDS: POTASSIUM CHLORIDE 10 MEQ TABCR PO SCH (09:33)
[2018-09-27] MEDS: BUMETANIDE 1 MG TAB PO SCH ×2 (09:33→17:21)
[2018-09-27] MEDS ORDERED: POTASSIUM CHLORIDE 10 MEQ TABCR PO STA (09:45)
[2018-09-27] MEDS: WARFARIN SOD 3 MG TAB PO SCH (16:17)
[2018-09-27] MEDS: GABAPENTIN 600 MG TAB PO SCH ×2 (16:18→22:17)
--- NOTE | 2018-09-27 16:58 | Hospitalist Progress Note ---
Date of Service September 27, 2018 Assessment & Plan (1) Paroxysmal ventricular tachycardia: Paroxysmal ventricular tachycardia/status post AICD firing prior to admission Interrogation by [employer] rep in ED reported many episodes of paroxysmal V. tach. Possible aggravating factors may be his anger outbursts and stress/anxiety? Pt and report he frequently gets shocked when he gets very irritated. ECHO here with slightly improved LV function to 25-30% Troponin negative x3 therefore ischemia did not play a role in his ventricular tachycardia storm Has a h/o VTach ablation on 4 different occasions -Discontinued his sotalol upon admission in favor of starting amiodarone again which he had failed in the past -started on amiodarone gtt here and initially added po amiodarone but continued to have ventricular tachycardia episode of which he paced out of -DCd p.o. amiodarone and continued IV amiodarone only for now and continue until transfer to [facility] -plan for transfer to [facility] today for consideration for repeat VT ablation-still awaiting bed availability there -accepting physician is Dr. Barnard-case was discussed with [facility] by Dr. Sanders -Continue metoprolol -Continue monitoring on telemetry -Keep potassium equal to or greater than 4 and magnesium equal to or greater than 2-replace potassium today (2) Obstructive sleep apnea treated with continuous positive airway pressure (CPAP): -continue CPAP qhs (3) CAD (coronary artery disease), [place] coronary artery: s/p CABG x4 and circumflex stent. As per pt, he has 3 of 4 grafts failed on most recent catheterization. Troponins here neg x 3 after admission despite getting shocked with AICD, no evidence of ACS -Continue ASA 81 mg daily -Continue statin and consider increasing to high intensity -continue Toprol XL 50mg daily and increase upward as tolerated (4) Hypertension: BPs tend to run low actually on meds for ischemic CM (5) Hyperlipidemia LDL goal <70: Continue atorvastatin 20 mg p.o. daily and consider increasing dose for severe CAD (6) Anxiety: Worsened by repeated ICD shocks -Continue citalopram, gabapentin, and zolpidem - made his Lorazepam 0.5 mg p.o. twice daily on a scheduled basis to decrease anxiety in an effort to reduce catecholamine release to avoid V. tach storm (7) GERD (gastroesophageal reflux disease): Continue pantoprazole 40 mg daily (8) Chronic pain syndrome: Continue cyclobenzaprine, gabapentin and oxycodone-acetaminophen prn (9) Atrial flutter: none on pacer interrogation since 03/2018 -continue AC with coumadin, INR 2.5 here for many days and stable -continue beta shaun, amiodarone (10) Ischemic cardiomyopathy: EF 25-30% slightly improved from previous, with WMAs on ECHO. Not volume overloaded here -continue ASA, Toprol, lisinopril, bumex, potassium -follow daily weights, I/Os, low Na+ diet (11) Chronic systolic (congestive) heart failure: as above in "ischemic cardiomyopathy" (12) DVT prophylaxis: Coumadin Dispo- transfer to [facility] with Dr. Barnard as accepting physician when bed available-hopefully tomorrow as per my discussion with the hospice coordinator at [facility] today Subjective Patient has no complaints. Still waiting for transfer to [facility]. Denies chest pain or shortness of breath. He is ambulating without difficulty. No further ventricular tachycardia on the news reporter. 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
[2018-09-27] MEDS: ZOLPIDEM TARTRATE 10 MG TAB PO SCH (22:17)
[2018-09-28 07:57] LABS: INR 3.1 (0.9-1.1); Prothrombin Time 29.6 Seconds (9.0-12.0)
[2018-09-28] MEDS: LORazepam 0.5 MG TAB PO SCH ×2 (08:10→18:31)
[2018-09-28] MEDS: CITALOPRAM 20 MG TAB PO SCH (08:10)
[2018-09-28] MEDS: METOPROLOL SUCC 50MG EXT REL TAB PO SCH (08:10)
[2018-09-28] MEDS: ATORVASTATIN 20 MG TAB PO SCH (08:10)
[2018-09-28] MEDS: PANTOprazole 40 MG TAB PO SCH (08:11)
[2018-09-28] MEDS: POTASSIUM CHLORIDE 10 MEQ TABCR PO SCH (08:11)
[2018-09-28] MEDS: ASPIRIN 81 MG ECTAB PO SCH (08:12)
[2018-09-28] MEDS: BUMETANIDE 1 MG TAB PO SCH (08:12)
[2018-09-28] MEDS: LISINOPRIL 2.5 MG TAB PO SCH (08:12)
[2018-09-28 08:14] LABS: BUN Creatinine Ratio 14.6 (10-20); Calcium 8.8 mg/dl (8.5-10.1); Creatinine Clr Calc Pharmacy 58.7 ml/min; Est GFR (African American) 62.2; Est GFR (Non-African American) 53.7; Magnesium 2.2 mg/dl (1.8-2.4); Potassium 3.6 mmol/L (3.5-5.1)
--- NOTE | 2018-09-28 09:04 | Cardiology Progress Note ---
Date of Service September 28, 2018 Assessment & Plan (1) Sustained ventricular tachycardia: He has now had an episode of sustained ventricular tachycardia requiring antitachycardia pacing while on both intravenous amiodarone and starting oral. In addition he probably had pulmonary toxicity in the past from amiodarone (although I think there was disagreement and I do not think it was proven, it could be reevaluated) so this is not a good long-term solution although it is seemingly controlling his arrhythmia in IV form since the first night. It is very unlikely other antiarrhythmics would work. At this point we need to transfer for ablation, he would prefer to go to [place] and was under the care of Dr. Le at [facility]. I have made arrangements with Dr. De La Rosa at [facility] and he will accept the patient, unfortunately it seems that a bed is not available and although we have approval to transfer the patient he is waiting for a bed. For now I am going to continue IV amiodarone, I believe he is stable for ground transportation. (2) CAD (coronary artery disease), [place] coronary artery: He has severe coronary artery disease however does not have indication that this was an ischemic event. Despite all of ventricular tachycardia preceding his admission his cardiac enzymes were negative making ischemia unlikely and this is similar to his prior tachycardia which was not due to active ischemia. This is something we may have to consider however but at this point I do not think we need catheterization and I would certainly not do stress testing. (3) Hypertension: Currently his blood pressure is not elevated, it tends to run fairly low. (4) Chronic systolic (congestive) heart failure: He does not appear to be fluid overloaded, the Optivol recordings in his ICD do not suggest pulmonary congestion and his exam does not suggest it. (5) Ischemic cardiomyopathy: He has a severe cardiomyopathy however his ejection fraction measures slightly higher this admission than when last checked in the office, it is probably not changed much over the last several years. We could go up more on his medications but in the past his blood pressure has limited our ability to do that and with stabilization of his ejection fraction I have not done that. We could also consider a switch from lisinopril to Entresto, but I have not done that as yet. (6) Atrial flutter: He has had difficulty with atrial flutter and atrial fibrillation in the past, he has not had much difficulty with that lately although he did around March of last year. He has been in sinus rhythm and atrial pacing recently and during this hospitalization. Subjective He continues to do well, he is not having any cardiovascular symptoms and is mentally prepared to go to [facility] for his ablation. He is disappointed that he will probably have to spend the weekend in the hospital before his ablation. Results & Data Vital Signs (Past 12 Hours) Vital Signs Temp Pulse Pulse Resp BP Pulse Ox 09/28/18 06:56 36.4 C L 60 18 103/70 95 09/28/18 03:37 36.3 C L 60 18 93/55 L 96 09/28/18 01:50 59 L 22 92 09/27/18 23:54 36.9 C 65 18 99/62 L 97 Diagnostic Findings Telemetry: Paced rhythm, no atrial fibrillation or ventricular tachycardia overnight
[2018-09-28] MEDS ORDERED: POTASSIUM CHLORIDE 20 MEQ TABCR PO ONE (10:00)
[2018-09-28] MEDS: AMIODARONE / D5W 360 MG/200 ML BAG IV SCH ×2 (10:01→19:07)
[2018-09-28] MEDS: WARFARIN SOD 3 MG TAB PO SCH (16:12)
[2018-09-28] MEDS: GABAPENTIN 600 MG TAB PO SCH (16:13)
== END 2018-09-28 19:30 | disposition short-term general hospital (02) | DRG 309 ==
LOC: ED 23:34 → 2S 09-23 03:19 → SUATTDRO 09-23 03:19 → 2S 09-23 03:59

== ENCOUNTER 2020-03-12 18:57 | Inpatient (IN) ==
[2020-03-12] MEDS ORDERED: SODIUM CHLORIDE 0.9% 1000ML 1,000 ML IV ONE (19:10)
[2020-03-12] MEDS ORDERED: SODIUM BICARB 8.4% INJ 50 MEQ/50 ML SYR IV STA (19:38)
[2020-03-12] MEDS ORDERED: CALCIUM GLUCONATE 10% 1,000 MG in SODIUM CHLORIDE 0.9% 50 ML IV STA (19:38)
[2020-03-12] MEDS ORDERED: DEXTROSE 50% 50 ML SYRINGE IV ONE (19:38)
[2020-03-12] MEDS ORDERED: NovoLIN-R INSULIN PER UNIT CHARGE IV STA (19:38)
[2020-03-12 20:07] LABS: Appearance Urine Clear (Clear); Bacteria Urine Automated Negative (Negative); Bilirubin Urine Negative (Negative); Blood Urine Trace (Negative); Cast Urine Automated 0 /lpf (0-5); Color Urine Yellow; Epithelial Cell Urine Auto 0-5 /lpf (0-5); Glucose Urine UA Negative (Negative); Ketones Urine Negative (Negative); Leukocyte Esterase Urine Negative (Negative); Nitrite Urine Negative (Negative); Protein Urine Negative (Negative); RBC Urine Automated 0-4 /hpf (0-4); Specific Gravity Urine 1.013 (1.000-1.030); Urobilinogen Urine Negative (Negative)
--- NOTE | 2020-03-12 20:13 | XRay Report ---
XR chest 1V portable CLINICAL HISTORY: Weakness COMPARISON STUDY: September 22, 2018 FINDINGS: There are postsurgical changes of a midline sternotomy. There is a left subclavian pacer/de fibrillator. There is no failure. There is no focal pulmonary consolidation. There are no pleural eff usions.[The heart is at the upper limits of normal in size. IMPRESSION: No active disease in the chest. ACT 112: Negative or not required by law. Electronically signed by: Roberto Bravo M.D. 03/12/2020 8:12 PM
[2020-03-12 20:20] LABS: Calcium 8.6 mg/dl (8.5-10.1); Creatinine Clr Calc Pharmacy 16.4 ml/min; Est GFR (African American) 13.7; Est GFR (Non-African American) 11.8; Potassium 6.1 mmol/L (3.5-5.1)
--- NOTE | 2020-03-12 21:34 | Emergency Department Note ---
History of Present Illness General Chief complaint: Abnormal Labs/Diagnostic Testing Stated complaint: HIGH CREATININE Time Seen by Provider: 03/12/20 19:10 Source: patient Mode of arrival: ambulatory Limitations: no limitations History of Present Illness Provider complaint: Abnormal labs The patient presents to the ED with a chief complaint of diarrhea for the past month. He states that he saw his doctor this morning and blood work revealed his kidneys are failing and his potassium was high. He has no additional complaints at this time. Denies fevers or recent illness. Reports his diarrhea is been going on primarily after eating in the morning and sometimes at night. Home Medications Home Medications Medication Instructions Recorded Confirmed Type amoxicillin 500 mg capsule 2,000 mg PO ONCE PRN #30 cap 01/29/19 03/12/20 History aspirin 81 mg tablet,delayed 81 mg PO DAILY tab 01/29/19 03/12/20 History release atorvastatin 20 mg tablet 20 mg PO DAILY tab 01/29/19 03/12/20 History bumetanide 1 mg tablet 1 mg PO BID tab 01/29/19 03/12/20 History citalopram 20 mg tablet 20 mg PO DAILY tab 01/29/19 03/12/20 History gabapentin 600 mg tablet 600 mg PO BID tab 01/29/19 03/12/20 History lorazepam 0.5 mg tablet 0.5 mg PO Q6H PRN tab 01/29/19 03/12/20 History pantoprazole 40 mg tablet,delayed 40 mg PO DAILY #30 tab 01/29/19 03/12/20 History release potassium chloride 10 mEq 20 meq PO DAILY cap 01/29/19 03/12/20 History capsule,extended release warfarin 2 mg tablet 2 mg PO DAILY tab 01/29/19 03/12/20 History zolpidem 10 mg tablet 10 mg PO HS PRN tab 01/29/19 03/12/20 History nitroglycerin 400 mcg/spray 1 sprays SL Q5M PRN #4.9 gm 03/19/19 03/12/20 Rx translingual sotalol 80 mg tablet 80 mg PO BID #90 tab 03/19/19 03/12/20 History metoprolol succinate 50 mg 50 mg PO DAILY #90 tab 01/06/20 03/12/20 Rx tablet,extended release 24 hr sacubitril-valsartan [Entresto] 1 tab PO BID 03/12/20 03/12/20 History Allergies Allergy/AdvReac Type Severity Reaction Status Date / Time heparin Allergy Severe CAUSES HIT Verified 03/12/20 20:33 silver AdvReac Intermediate TOPICAL - Verified 03/12/20 20:33 BURNING, PAIN Past Med/Surg History Medical History (Updated 03/12/20 @ 21:33 by Aman Montaño DO) GERD (gastroesophageal reflux disease) Paroxysmal ventricular tachycardia (11/01/10) Social History Smoking Status: Former smoker Cigarettes Per Day: 20; Second Hand Exposure: No; Hx Alcohol Use: No Hx Substance Use: No Preferred Language: Lithuanian Communication Ability: Effective Bulldozer Engineer Required: No Beliefs That Will Affect Care: None marital status: Current Living Situation: Spouse Feels Safe at Home: Yes Assistive Devices: Glasses and Prosthesis Review of Systems A total of 10 systems reviewed and were otherwise negative Physical Exam Vital Signs Vital Signs - 24 hr 03/12/20 19:02 03/12/20 20:04 03/12/20 20:15 Temperature 36.9 C Temperature Source Oral Pulse Rate 77 60 60 Pulse Rate from SpO2 Sensor 60 60 Respiratory Rate 20 15 15 Respiratory Effort / Characteristics Non-Labored Spontaneous Respiratory Depth Normal Blood Pressure 91/59 L 83/59 L Blood Pressure Mean 69 66 Pulse Oximetry 98 98 94 Oxygen Delivery Method Room Air Sepsis New/Unexplained Change in Mental Status N/A Sepsis Action Taken by Nursing No Action Required 03/12/20 20:20 03/12/20 20:30 03/12/20 20:40 Temperature Temperature Source Pulse Rate 64 75 Pulse Rate from SpO2 Sensor 62 Respiratory Rate 18 19 24 Respiratory Effort / Characteristics Respiratory Depth Blood Pressure Blood Pressure Mean Pulse Oximetry 96 Oxygen Delivery Method Sepsis New/Unexplained Change in Mental Status Sepsis Action Taken by Nursing 03/12/20 20:50 03/12/20 21:00 03/12/20 21:10 Temperature Temperature Source Pulse Rate 62 60 60 Pulse Rate from SpO2 Sensor 61 60 60 Respiratory Rate 15 14 19 Respiratory Effort / Characteristics Respiratory Depth Blood Pressure 82/51 L Blood Pressure Mean 54 Pulse Oximetry 96 94 95 Oxygen Delivery Method Sepsis New/Unexplained Change in Mental Status Sepsis Action Taken by Nursing 03/12/20 21:20 03/12/20 21:21 Temperature Temperature Source Pulse Rate 60 60 Pulse Rate from SpO2 Sensor 60 62 Respiratory Rate 16 15 Respiratory Effort / Characteristics Respiratory Depth Blood Pressure 108/76 Blood Pressure Mean 89 Pulse Oximetry 96 95 Oxygen Delivery Method Sepsis New/Unexplained Change in Mental Status Sepsis Action Taken by Nursing CONSTITUTIONAL/VITAL SIGNS: Reviewed / noted above. GENERAL: Non-toxic in appearance. INTEGUMENTARY: Warm, dry, and [place]. HEAD: Normocephalic. EYES: without scleral icterus or trauma. ENT/OROPHARYNX: clear and moist. LYMPHADENOPATHY/NECK: Is supple without lymphadenopathy or meningismus. RESPIRATORY: Lungs clear and equal. CARDIOVASCULAR: Regular rate and rhythm. GI/ABDOMEN: Soft and nontender. No organomegaly or pulsatile mass. No rebound or guarding. Normal bowel sounds. EXTREMITIES: Warm and well perfused. BACK: No CVA tenderness. NEUROLOGICAL: Intact without focal deficits. PSYCHIATRIC: normal affect. MUSCULOSKELETAL: Normally developed with good muscle tone. TRIAGE NURSING DOCUMENTATION REVIEWED. Course Administered Medications Discontinued Medications Dextrose (Dextrose 50% 50 Ml Syringe) 50 ml IV NOW ONE Stop: 03/12/20 19:39 Last Admin: 03/12/20 20:10 Dose: 50 ml Documented by: [id number] Sodium Chloride (Nss 1000ml) 1,000 mls @ 999 mls/hr IV .Q1H1M ONE Stop: 03/12/20 20:10 Last Admin: 03/12/20 20:09 Dose: 999 mls/hr Documented by: [id number] Calcium Gluconate 1,000 mg/ (Sodium Chloride) 60 mls @ 240 mls/hr IV NOW STA Stop: 03/12/20 19:52 Last Infusion: 03/12/20 20:51 Dose: 0 mls/hr Documented by: [id number] Admin: 03/12/20 20:10 Dose: 240 mls/hr Documented by: [id number] Insulin Human Regular (Novolin-R Insulin Per Unit Charge) 10 units IV NOW STA Stop: 03/12/20 19:39 Last Admin: 03/12/20 20:10 Dose: 10 units Documented by: [id number] Cosigned by: [id number] Sodium Bicarbonate (Sodium Bicarb 8.4% Inj 50 Meq/50 Ml Syr) 50 meq IV NOW STA Stop: 03/12/20 19:39 Last Admin: 03/12/20 20:08 Dose: 50 meq Documented by: [id number] Critical Care Time Critical Care Time: Yes Total Critical Care Time: 30 I have personally spent 30 minutes of critical care time in the direct management of this patient. This includes bedside care, interpretation of diagnostic studies, and testing, discussion with consultants, patient, and family members, and other required patient management activities. This 30 minutes is in excess of all separately billable procedures. Medical Decision Making Differential Diagnosis Differential includes acute coronary syndrome, myocardial infarction, CVA, TIA, anemia, infection, pneumonia, UTI, pyelonephritis, poor nutrition, dehydration, electrolyte disturbance,hypoglycemia. Medical Records Attestation: I reviewed the patient's medical records. Home Medications Current Medication List: was personally reviewed by me Laboratory Data Attestation: I reviewed the patient's lab results. Result diagrams: 03/12/20 19:28 03/12/20 19:28 Lab Results 03/12/20 03/12/20 Range/Units 19:28 19:50 Sodium 138 (136-145) mmol/L Potassium 6.1 H* (3.5-5.1) mmol/L Chloride 109 H (98-107) mmol/L Carbon Dioxide 23 (21-32) mmol/L Anion Gap 5.0 (3-11) BUN 96 H (7-18) mg/dl Creatinine 4.64 H* (0.6-1.4) mg/dl Est Cr Clr Drug Dosing 16.4 ml/min Est GFR ( Amer) 13.7 Est GFR (Non-Af Amer) 11.8 BUN/Creatinine Ratio 21.0 H (10-20) Glucose 83 (70-99) mg/dl Calcium 8.6 (8.5-10.1) mg/dl Urine Color Yellow Urine Appearance Clear (Clear) Urine pH 5.0 (4.5-7.5) Ur Specific [place] 1.013 (1.000-1.030) Urine Protein Negative (Negative) Urine Glucose (UA) Negative (Negative) Urine Ketones Negative (Negative) Urine Blood Trace H (Negative) Urine Nitrite Negative (Negative) Urine Bilirubin Negative (Negative) Urine Urobilinogen Negative (Negative) Ur Leukocyte Esterase Negative (Negative) Urine WBC (Auto) 1-5 (0-5) /hpf Urine RBC (Auto) 0-4 (0-4) /hpf U Hyaline Cast (Auto) 0 (0-5) /lpf U Epithel Cells (Auto) 0-5 (0-5) /lpf Urine Bacteria (Auto) Negative (Negative) Imaging Data Radiologist's Impression: XR chest 1V portable CLINICAL HISTORY: Weakness COMPARISON STUDY: September 22, 2018 FINDINGS: There are postsurgical changes of a midline sternotomy. There is a left subclavian pacer/defibrillator. There is no failure. There is no focal pulmonary consolidation. There are no pleural effusions.[The heart is at the upper limits of normal in size. IMPRESSION: No active disease in the chest. ECG Data Attestation: I personally reviewed and interpreted this ECG as follows: Indication: + weakness Rate (beats per minute): 79 Rhythm: + other (Paced ventricular rhythm) ECG ST segments: no ST elevation ECG Findings: no PVCs MDM Narrative Patient presents with the above. His laboratory studies revealed acute on chronic renal failure and hyperkalemia. He was treated with IV fluids, IV sodium bicarbonate, IV insulin, IV glucose and IV calcium chloride. He will be seen by the hospitalist for further inpatient evaluation and care. Impression & Plan Acute renal failure (ARF), Acute hyperkalemia Discharge Plan Visit Data Chief Complaint: Abnormal Labs/Diagnostic Testing Stated Complaint: HIGH CREATININE ED Provider: Aman Montaño Discharge Problem: Acute renal failure (ARF), Acute hyperkalemia Patient Disposition: Admitted As Inpatient Forms Stand Alone Forms: My [facility], Virtual Emergency Department, Important Visit Information Prescriptions Prescriptions: No Action metoprolol succinate 50 mg tablet extended release 24 hr 50 mg PO DAILY Qty: 90 RF: 3 aspirin 81 mg tablet,delayed release (DR/EC) 81 mg PO DAILY RF: 0 bumetanide 1 mg tablet 1 mg PO BID RF: 0 gabapentin 600 mg tablet 600 mg PO BID RF: 0 potassium chloride 10 mEq capsule, extended release 20 meq PO DAILY RF: 0 zolpidem 10 mg tablet 10 mg PO HS PRN (Reason: insomnia) RF: 0 atorvastatin 20 mg tablet 20 mg PO DAILY RF: 0 amoxicillin 500 mg capsule 2,000 mg PO ONCE PRN (Reason: DENTAL APPOINTMENTS) Qty: 30 RF: 0 citalopram 20 mg tablet 20 mg PO DAILY RF: 0 lorazepam 0.5 mg tablet 0.5 mg PO Q6H PRN (Reason: anxiety) RF: 0 pantoprazole 40 mg tablet,delayed release (DR/EC) 40 mg PO DAILY Qty: 30 RF: 0 warfarin 2 mg tablet 2 mg PO DAILY RF: 0 sotalol 80 mg tablet 80 mg PO BID Qty: 90 RF: 0 nitroglycerin [Nitrolingual] 400 mcg/spray spray,non-aerosol 1 sprays SL Q5M PRN (Reason: chest pain) Qty: 4.9 RF: 5 Entresto 97-103 mg tablet 1 tab PO BID RF: 0 Referrals Referrals: Will Ritchie MD [Primary Care Provider] - Discharge Problem: Acute renal failure (ARF) Qualifiers: Acute renal failure type: unspecified Qualified Code(s): N17.9 - Acute kidney failure, unspecified
[2020-03-12 22:06] LABS: Magnesium 1.9 mg/dl (1.8-2.4); Phosphorus 3.8 mg/dl (2.5-4.9)
--- NOTE | 2020-03-12 22:17 | History & Physical Report ---
Date of Service March 12, 2020 Assessment & Plan (1) Acute renal failure (ARF): Ninfa is a 69-year-old male with a past medical history of coronary artery disease status post CABG, history of a flutter with dual paced pacer ICD, ischemic cardiomyopathy, hypertension, RHIANNA, and GERD who presents on referral from his outpatient provider for acute renal failure with hyperkalemia. Acute renal failure suspect 2/2 prerenal depletion 2/2 GI bleeding/diarrhea and diuretic use -Patient with creatinine rise to 4.64 from baseline of approximately 1.5 BUN elevated at 96 in the setting of GI bleed and ARF Patient with 1 month of diarrhea and melena with progressive lightheadedness, has continued to use Bumex twice a day with moderate urine output following doses Responsive to fluid challenge, see hypertension Aggressive fluid therapy balance against CAD and cardiomyopathy with EF appro ximately 35% Status post 1 L fluid bolus in ED, additional 500 cc bolus on admission. Recheck and rebolus as indicated During my exam patient became orthostatic and hypotensive when sitting up in b ed, lightheaded and dizzy. On laying back and straight leg raise blood pressure immediately improved from 80/42, 105/70. Bolus given. FE urea ordered Bladder/renal ultrasound pending Hyperkalemia 6.1 on admission, EKG with dual paced rhythm without peaked T waves Received calcium gluconate 1 g, insulin 10 units IV, 1 amp dextrose on admission Continue fluid repletion as above, repeat gluconate/insulin/dextrose if still critically elevated on every 4 hour repeat, peaked T waves developed, or clinical change Continue to push aggressive rehydration, if starts to appear euvolemic/hypervol emic may use Lasix at that point. Defer Veltassa at this time. Discussed with nephrology. Defer Kayexalate GI bleeding on anticoagulation, no history of peptic ulcer disease Patient anticoagulated on warfarin INR 2.7 on admission Last colonoscopy 10 years ago, no history of abnormal colonoscopy and no family history of colorectal cancer or bleeding Melena x1 month, positive fecal occult blood at outpatient's office day of admission Hemoglobin 13, baseline 14, but suspect hemoconcentrated on admission Trend CBC Hold warfarin No NSAIDs Hold aspirin Protonix 40 mg twice daily GI consulted CAD with history of CABG, ICD with dual paced rhythm Aspirin held for acute bleeding Continue atorvastatin 20 mg daily Bumetanide held for ARF Continue metoprolol 50 mg succinate daily in the morning if blood pressure improved, held for now Hold sotalol 80 mg in the setting of hypotension Anxiety Continue citalopram 20 mg daily GERD PPI as above A flutter Paced ICD/defibrillator present Hold anticoagulation for GI bleed above Beta-shaun as above RHIANNA Continue CPAP nightly Patient reports faithful compliance at home, with good benefit DVT prophylaxis: SCDs, pharmacal prophylaxis contraindicated in the setting of bleed Diet: Low potassium Disposition: PCU CODE STATUS: Full code (2) Acute hyperkalemia: (3) Anticoagulant long-term use: (4) Ischemic cardiomyopathy: (5) Obstructive sleep apnea treated with continuous positive airway pressure (CPAP): (6) GI bleed: History of Present Illness Primary Care Provider: Will Ritchie MD Ninfa is a 69-year-old male with a past medical history of coronary artery disease status post CABG, history of a flutter with dual paced pacer ICD, ischemic cardiomyopathy, hypertension, RHIANNA, and GERD who presents on referral from his outpatient provider for acute renal failure with hyperkalemia. Mr. Ruggiero reports his symptoms began about 1 month ago when he developed daily diarrhea. He reports that with onset of his diarrhea he was having black, sometimes coffee ground-like, bowel movements which frequently also had some dark-colored blood. He continued to have diarrhea over the course of a month and progressively felt more weak and tired. He was having black bowel movements up to 3 times per day, and had intermittent episodes of dizziness that slowly worsened. He saw his outpatient provider today after symptoms were not improving and continued to worsen who performed a Hemoccult test which was positive for stool blood. He also juni labs, when labs showed creatinine increase to 4.64 and hyperkalemia greater than 6 he was referred to the emergency department for further care. He reports that he has not had any chest pain, chest pressure, shortness of breath, fever, chills, cough, or difficulty breathing but that he has felt extremely tired and occasionally presyncopal. He has not had any change in urination, he reports that he continues to be several times twice daily after taking his Bumex which she is continued to take every day. He has sleep apnea for which she wears a CPAP, he wears this "faithfully "every day, and feels it works well for him. He has not had any swelling in his right leg. 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 He reports he last had a colonoscopy approximately 10 years ago which was normal, and he has not had an abnormal colonoscopy previously. He does not have a family history of GI bleeding or colorectal cancer. Medications: Reviewed. Last took morning day of admission. Medical history: Reviewed Surgical history: Reviewed allergies: Topical allergy to silver. 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 Social: Lives at home with his , independently ambulatory. Denies tobacco, alcohol, and recreational drug use. No recent sick contacts CODE STATUS: Full code Allergies Allergy/AdvReac Type Severity Reaction Status Date / Time heparin Allergy Severe CAUSES HIT Verified 03/12/20 20:33 silver AdvReac Intermediate TOPICAL - Verified 03/12/20 20:33 BURNING, PAIN Home Medications Home Medications Medication Instructions Recorded Confirmed Type amoxicillin 500 mg capsule 2,000 mg PO ONCE PRN #30 cap 01/29/19 03/12/20 History aspirin 81 mg tablet,delayed 81 mg PO DAILY tab 01/29/19 03/12/20 History release atorvastatin 20 mg tablet 20 mg PO DAILY tab 01/29/19 03/12/20 History bumetanide 1 mg tablet 1 mg PO BID tab 01/29/19 03/12/20 History citalopram 20 mg tablet 20 mg PO DAILY tab 01/29/19 03/12/20 History gabapentin 600 mg tablet 600 mg PO BID tab 01/29/19 03/12/20 History lorazepam 0.5 mg tablet 0.5 mg PO Q6H PRN tab 01/29/19 03/12/20 History pantoprazole 40 mg tablet,delayed 40 mg PO DAILY #30 tab 01/29/19 03/12/20 History release potassium chloride 10 mEq 20 meq PO DAILY cap 01/29/19 03/12/20 History capsule,extended release warfarin 2 mg tablet 2 mg PO DAILY tab 01/29/19 03/12/20 History zolpidem 10 mg tablet 10 mg PO HS PRN tab 01/29/19 03/12/20 History nitroglycerin 400 mcg/spray 1 sprays SL Q5M PRN #4.9 gm 03/19/19 03/12/20 Rx translingual sotalol 80 mg tablet 80 mg PO BID #90 tab 03/19/19 03/12/20 History metoprolol succinate 50 mg 50 mg PO DAILY #90 tab 01/06/20 03/12/20 Rx tablet,extended release 24 hr sacubitril-valsartan [Entresto] 1 tab PO BID 03/12/20 03/12/20 History Past Med/Surg History Medical History (Updated 03/12/20 @ 22:02 by Roscoe Farias MD) GERD (gastroesophageal reflux disease) Paroxysmal ventricular tachycardia (11/01/10) Social History Smoking Status: Former smoker Cigarettes Per Day: 20; Second Hand Exposure: No; Hx Alcohol Use: No Hx Substance Use: No Preferred Language: Macedonian Communication Ability: Effective Field Crew Chief Required: No Beliefs That Will Affect Care: Holiness marital status: Current Living Situation: Spouse Other Information That Helps Us Care for You: No Feels Safe at Home: Yes Safety Concerns: Feels Safe At This Time Assistive Devices: Cane, Glasses and Prosthesis Review of Systems Review of Systems: All systems reviewed & are unremarkable except as noted in HPI & below Physical Exam Physical Exam: General: A&Ox3. NAD. Cooperative. Patient became lightheaded and dizzy/orthostatic upon sitting up in bed during exam. Improved with right leg raise. HEENT: Atraumatic, normocephalic. Mucous membranes tacky/dry. Pulm: CTAB A&P. -wheezes, -rales, -rhonchi. Symmetrical chest rise. No increase work of breathing. No respiratory distress. Cardiac: RRR, -mrg. Radial pulses intact and symmetrical. Abdominal: Nontender, nondistended, soft. BS present. CRANIAL NERVES: II: Pupils equal and reactive, no relative afferent pupillary defect, no VF cuts III, IV, : EOM intact, no gaze preference or deviation, no nystagmus. V: normal sensation in V1, V2, and V3 segments bilaterally VII: no asymmetry, no nasolabial fold flattening VIII: normal hearing to speech IX, X: normal palatal elevation, no uvular deviation XI: 5/5 head turn and 5/5 shoulder shrug bilaterally XII: midline tongue protrusion Extremity: No right lower extremity edema, PT pulse intact. RUE: 5/5 paper products printer strength, finger flexion/extension, interosseus LUE: 5/5 paper products printer strength, finger flexion/extension, interosseus RLE: 5/5 to hip flexion/extension, ankle dorsiflexion/plantarflexion LLE: Prosthesis present, status post amputation from surgical complications. Results & Data Results & Data ([facility]) Vital Signs (Past 12 Hours) Vital Signs Temp Pulse Resp BP Pulse Ox 03/12/20 21:21 60 15 108/76 95 03/12/20 21:20 60 16 96 03/12/20 21:10 60 19 95 03/12/20 21:00 60 14 82/51 L 94 03/12/20 20:50 62 15 96 03/12/20 20:40 24 03/12/20 20:30 75 19 03/12/20 20:20 64 18 96 03/12/20 20:15 60 15 94 03/12/20 20:04 60 15 83/59 L 98 03/12/20 19:02 36.9 C 77 20 91/59 L 98 Supervising Physician Co-Signing Physician Notes Patient seen and examined, chart reviewed, case discussed with Dr. Farias and I agree with his assessment and plan as documented above. Briefly, patient is a 69yo male with history of CAD s/p CABG, ICM with last reported EF of25-30%, s/p dual chamber AICD. Patient with persistent diarrhea, ?melena ongoing for the last month. He presents today with EVIE, hyperkalemia without acute EKG changes. On exam he is afebrkle, HD stable, NAD Skin - no rash HEENT - NC/AT, PERRL, EOMI, Dry MM Heart - +S1/S2, regular. AICD in place Lungs - CTA Abd - +BS, soft, NT/ND Ext - no edema Labs and images reviewed. Hgb=13, Hct=40.3 with normal MCV/MCH. INR=2.7 K=5.7 BUN=63 Cr=2.41 Assessment/Plan - -Admit to PCU -IVF, monitor I/Os, electrolytes and renal function. Check renal US, FeUrea calculation, Nephrology consultation -Protonix BID, GI consult, CBC monitoring for suspected GIB -Gentle IVF with BP monitoring. Patient with fairly low baseline BP 100-120's. -Remainder of plan as above Resident Activity Tracking Resident Involvement: Resident Care Provided Care Provided: Adult Hospital Medicine (1) Acute renal failure (ARF) Acute renal failure type: unspecified Qualified Code(s): N17.9 - Acute kidney failure, unspecified
[2020-03-12] MEDS ORDERED: SODIUM CHLORIDE 0.9% 1000ML 500 ML IV ONE ×3 (22:28→23:31)
[2020-03-12] MEDS ORDERED: ACETAMINOPHEN 325 MG TAB PO PRN (23:31)
[2020-03-13] MEDS ORDERED: LORazepam 0.5 MG TAB PO STA (00:09)
--- NOTE | 2020-03-13 00:26 | Billing Data ---
Date of Service March 12, 2020 Coding Level of Care Code 44216 Initial Inpt Care Lvl 3
[2020-03-13 00:38] LABS: BUN Creatinine Ratio 23.3 (10-20); Calcium 7.7 mg/dl (8.5-10.1); Creatinine Clr Calc Pharmacy 19.2 ml/min; Est GFR (African American) 16.7; Est GFR (Non-African American) 14.4; Potassium 5.3 mmol/L (3.5-5.1)
[2020-03-13] MEDS: PANTOprazole 40 MG in SYRINGE 0 ML IV SCH ×3 (01:54→20:10)
[2020-03-13 04:03] LABS: Basophils # (auto) 0.01 K/uL (0-0.2); Basophils % (auto) 0.2 %; Eosinophils # (auto) 0.04 K/uL (0-0.5); Hemoglobin 11.7 g/dL (14.0-18.0); Immature Granulocytes # (auto) 0.01 K/uL (0.00-0.02); Immature Granulocytes % (auto) 0.2 %; Lymphocytes # (auto) 0.72 K/uL (1.2-3.4); Lymphocytes % (auto) 17.4 %; Mean Corpuscular Hemoglobin 30.2 pg (25-34); Mean Corpuscular Hgb Conc 32.5 g/dL (32-36); Mean Platelet Volume 11.7 fL (7.4-10.4); Monocytes # (auto) 0.31 K/uL (0.11-0.59); Monocytes % (auto) 7.5 %; Neutrophils # (auto) 3.04 K/uL (1.4-6.5); Neutrophils % (auto) 73.7 %; Platelet Count 112 K/uL (130-400); RDW Standard Deviation 43.6 fL (36.4-46.3); Red Blood Count 3.87 M/uL (4.7-6.1); White Blood Count 4.13 K/uL (4.8-10.8)
[2020-03-13 04:24] LABS: BUN Creatinine Ratio 23.9 (10-20); Calcium 7.8 mg/dl (8.5-10.1); Creatinine Clr Calc Pharmacy 22.8 ml/min; Est GFR (African American) 20.6; Est GFR (Non-African American) 17.8; Potassium 5.3 mmol/L (3.5-5.1)
--- NOTE | 2020-03-13 08:26 | Ultrasound Report ---
ULTRASOUND KIDNEYS AND BLADDER CLINICAL HISTORY: Acute renal insufficiency. COMPARISON STUDY: Abdominal CT dated 07/04/2018 TECHNIQUE: Real-time, grayscale, and color flow sonography of the kidneys and bladder is performed. I mages are reviewed in the transverse and longitudinal planes. FINDINGS: Kidneys: The kidneys are normal in size and echotexture. The right kidney measures 10.5 x 4.6 x 5.0 c m and the left kidney measures 11.1 x 4.7 x 3.7 cm. There is no hydronephrosis. No shadowing renal c alculi are identified. There is no sonographic evidence of contour deforming renal mass lesion. No pe rinephric fluid is identified. Bladder: Prostate gland is enlarged and heterogeneous noting median lobe hypertrophy. The bladder wal l appears thickened and trabeculated suggesting chronic outlet obstruction. Bilateral ureteral jets w ere seen. Upper abdomen: Survey images of the spleen show evidence of splenomegaly. Spleen measures 13.8 cm in length. IMPRESSION: 1. The kidneys are normal in size and without hydronephrosis. 2. Prostatomegaly with evidence of chronic bladder outlet obstruction. 3. Mild splenomegaly. ACT 112: Negative or not required by law. Electronically signed by: Rohit Wilkinson M.D. 03/13/2020 8:24 AM
[2020-03-13 08:43] LABS: Calcium 8.3 mg/dl (8.5-10.1); Creatinine Clr Calc Pharmacy 24.3 ml/min; Est GFR (African American) 22.3; Est GFR (Non-African American) 19.2; Potassium 4.8 mmol/L (3.5-5.1)
[2020-03-13 08:47] LABS: Basophils # (auto) 0.01 K/uL (0-0.2); Basophils % (auto) 0.3 %; Eosinophils # (auto) 0.07 K/uL (0-0.5); Hematocrit (blood only) 34.2 % (42-52); Hemoglobin 11.2 g/dL (14.0-18.0); Lymphocytes # (auto) 0.97 K/uL (1.2-3.4); Lymphocytes % (auto) 27.4 %; Mean Corpuscular Hemoglobin 30.5 pg (25-34); Mean Corpuscular Hgb Conc 32.7 g/dL (32-36); Mean Corpuscular Volume 93.2 fL (80-100); Mean Platelet Volume 11.9 fL (7.4-10.4); Monocytes # (auto) 0.23 K/uL (0.11-0.59); Monocytes % (auto) 6.5 %; Neutrophils # (auto) 2.26 K/uL (1.4-6.5); Neutrophils % (auto) 63.8 %; Platelet Count 114 K/uL (130-400); RDW Standard Deviation 43.8 fL (36.4-46.3); Red Blood Count 3.67 M/uL (4.7-6.1); White Blood Count 3.54 K/uL (4.8-10.8)
--- NOTE | 2020-03-13 08:59 | Gastrointestinal Consultation ---
Date of Consultation March 13, 2020 Assessment & Plan (1) GI bleed: (2) Anticoagulant long-term use: Patient reports diarrhea x 1 month and melena x 5 days with + fecal occult blood testing yesterday as an outpatient. He is on aspirin 81 mg and warfarin at home. Both on hold as inpatient. Continue PPI. Keep NPO. Plan is EGD today by Dr. Miramontes. Please refer to supervising physician addendum for further recommendations. History of Present Illness Attending Physician: Mary Ellen Leger DO History of Present Illness The patient is a pleasant 69-year-old male with a past medical history of coronary artery disease status post CABG, history of a flutter with dual paced pacer ICD, chronic anticoagulation on warfarin, ischemic cardiomyopathy, hypertension, RHIANNA, and GERD who presents on referral from his outpatient provider for acute renal failure with hyperkalemia. He saw his PCP due to diarrhea x 1 month and 5 day history of melena. KIKO by PCP demonstrated heme positive stool. On exam/interview today, patient reports he is feeling well. Reports diarrhea x 1 month with 5 day history of melena that was heme positive as noted above. Patient reports intermittent bilateral lower abdominal pain usually preceeding bowel movement and improving after. Denies nausea or vomiting. Denies hematochezia. He is on aspirin 81mg and Coumadin. He takes pantoprazole 40 mg daily at home. Last colonoscopy 1999 in [place], [place]. He is a former smoker. Quit smoking 10 years ago. Began smoking at age 18. He drinks beer socially every few months. Denies use of recreational drugs including marijuana. He is retired. He worked for the [employer] for >30 years. He is and lives at home with his . Allergies Allergy/AdvReac Type Severity Reaction Status Date / Time heparin Allergy Severe CAUSES HIT Verified 03/12/20 20:33 silver AdvReac Intermediate TOPICAL - Verified 03/12/20 20:33 BURNING, PAIN Home Medications Home Medications Medication Instructions Recorded Confirmed Type amoxicillin 500 mg capsule 2,000 mg PO ONCE PRN #30 cap 01/29/19 03/12/20 History aspirin 81 mg tablet,delayed 81 mg PO DAILY tab 01/29/19 03/12/20 History release atorvastatin 20 mg tablet 20 mg PO DAILY tab 01/29/19 03/12/20 History bumetanide 1 mg tablet 1 mg PO BID tab 01/29/19 03/12/20 History citalopram 20 mg tablet 20 mg PO DAILY tab 01/29/19 03/12/20 History gabapentin 600 mg tablet 600 mg PO BID tab 01/29/19 03/12/20 History lorazepam 0.5 mg tablet 0.5 mg PO Q6H PRN tab 01/29/19 03/12/20 History pantoprazole 40 mg tablet,delayed 40 mg PO DAILY #30 tab 01/29/19 03/12/20 History release potassium chloride 10 mEq 20 meq PO DAILY cap 01/29/19 03/12/20 History capsule,extended release warfarin 2 mg tablet 2 mg PO DAILY tab 01/29/19 03/12/20 History zolpidem 10 mg tablet 10 mg PO HS PRN tab 01/29/19 03/12/20 History nitroglycerin 400 mcg/spray 1 sprays SL Q5M PRN #4.9 gm 03/19/19 03/12/20 Rx translingual sotalol 80 mg tablet 80 mg PO BID #90 tab 03/19/19 03/12/20 History metoprolol succinate 50 mg 50 mg PO DAILY #90 tab 01/06/20 03/12/20 Rx tablet,extended release 24 hr sacubitril-valsartan [Entresto] 1 tab PO BID 03/12/20 03/12/20 History Patient History Medical History (Updated 03/12/20 @ 22:02 by Roscoe Farias MD) GERD (gastroesophageal reflux disease) Paroxysmal ventricular tachycardia (11/01/10) Social History Smoking Status: Former smoker Cigarettes Per Day: 20; Second Hand Exposure: No; Hx Alcohol Use: No Hx Substance Use: No Preferred Language: [place] Islander Communication Ability: Effective Metal Ceiling Hanger Required: No Beliefs That Will Affect Care: Church marital status: Current Living Situation: Spouse Other Information That Helps Us Care for You: No Feels Safe at Home: Yes Safety Concerns: Feels Safe At This Time Assistive Devices: Glasses Review of Systems Review of Systems: All systems reviewed & are unremarkable except as noted in Subjective Physical Exam Constitutional: WD/WN, vitals as above Eyes: no eyelid abnormality and no conjunctival abnormality ENMT: Ears: no external ear abnormality Nose: no external nose abnormality Neck: normal visual inspection and trachea midline Respiratory: normal respiratory effort, lungs clear to auscultation Cardiovascular: RRR, no murmur, no edema Gastrointestinal (Abdomen): normal bowel sounds, soft, nontender, no hepatosplenomegaly Musculoskeletal: Extremities: extremities normal to inspection Neurologic: PERRL, EOMI, accommodation nl, no face palsy, no dysarthria Psychiatric: A+Ox3, euthymic affect Results & Data ([facility]) Vital Signs (Past 12 Hours) Vital Signs Temp Pulse Pulse Resp BP BP Pulse Ox 03/13/20 07:52 37.0 C 69 16 90/60 L 99 03/13/20 04:00 36.9 C 61 18 93/57 L 94 03/13/20 00:00 98/62 L 03/12/20 23:31 72 03/12/20 23:20 36.6 C 65 16 91/64 L 97 03/12/20 23:07 80/43 L 03/12/20 23:00 60 21 03/12/20 22:51 60 18 03/12/20 22:49 60 16 81/41 L 03/12/20 22:41 60 19 03/12/20 22:40 60 23 75/45 L 03/12/20 22:38 18 77/48 L 03/12/20 22:36 63 14 71/42 L 03/12/20 22:34 63 18 77/45 L 03/12/20 22:31 64 14 03/12/20 22:30 65 14 74/50 L 03/12/20 22:20 60 14 92 03/12/20 22:10 60 12 92 03/12/20 22:01 60 17 93 03/12/20 22:00 60 17 81/52 L 93 03/12/20 21:50 60 18 92 03/12/20 21:40 66 17 92 03/12/20 21:31 19 93 03/12/20 21:30 60 19 117/78 93 03/12/20 21:22 60 17 95 03/12/20 21:21 60 15 108/76 95 03/12/20 21:20 60 16 96 03/12/20 21:10 60 19 95 03/12/20 21:00 60 14 82/51 L 94 Laboratory Results - last 24 hr 03/12/20 03/12/2003/12/20 19:28 19:50 21:39 WBC RBC Hgb Hct MCV MCH MCHC RDW Std Deviation RDW Coeff of Faby Plt Count MPV Immature Gran % (Auto) Neut % (Auto) Lymph % (Auto) [place] % (Auto) Eos % (Auto) Baso % (Auto) Neut # (Auto) Lymph # (Auto) [place] # (Auto) Eos # (Auto) Baso # (Auto) Immature Gran # (Auto) Sodium 138 Potassium 6.1 H* Chloride 109 H Carbon Dioxide 23 Anion Gap 5.0 BUN 96 H Creatinine 4.64 H* Est Cr Clr Drug Dosing 16.4 Est GFR ( Amer) 13.7 Est GFR (Non-Af Amer) 11.8 BUN/Creatinine Ratio 21.0 H Glucose 83 POC Glucose 78 Calcium 8.6 Phosphorus 3.8 Magnesium 1.9 Urine Color Yellow Urine Appearance Clear Urine pH 5.0 Ur Specific [place] 1.013 Urine Protein Negative Urine Glucose (UA) Negative Urine Ketones Negative Urine Blood Trace H Urine Nitrite Negative Urine Bilirubin Negative Urine Urobilinogen Negative Ur Leukocyte Esterase Negative Urine WBC (Auto) 1-5 Urine RBC (Auto) 0-4 U Hyaline Cast (Auto) 0 U Epithel Cells (Auto) 0-5 Urine Bacteria (Auto) Negative Ur Random Urea Nitrogn 03/12/20 03/13/20 03/13/20 23:39 03:45 03:45 WBC 4.13 L RBC 3.87 L Hgb 11.7 L Hct 36.0 L MCV 93.0 MCH 30.2 MCHC 32.5 RDW Std Deviation 43.6 RDW Coeff of Faby 13.0 Plt Count 112 L MPV 11.7 H Immature Gran % (Auto) 0.2 Neut % (Auto) 73.7 Lymph % (Auto) 17.4 [place] % (Auto) 7.5 Eos % (Auto) 1.0 Baso % (Auto) 0.2 Neut # (Auto) 3.04 Lymph # (Auto) 0.72 L [place] # (Auto) 0.31 Eos # (Auto) 0.04 Baso # (Auto) 0.01 Immature Gran # (Auto) 0.01 Sodium 142 142 Potassium 5.3 H 5.3 H Chloride 114 H 114 H Carbon Dioxide 25 23 Anion Gap 3.0 5.0 BUN 92 H 79 H Creatinine 3.93 H D 3.30 H D Est Cr Clr Drug Dosing 19.2 22.8 Est GFR ( Amer) 16.7 20.6 Est GFR (Non-Af Amer) 14.4 17.8 BUN/Creatinine Ratio 23.3 H 23.9 H Glucose 110 H 126 H POC Glucose Calcium 7.7 L 7.8 L Phosphorus Magnesium Urine Color Urine Appearance Urine pH Ur Specific [place] Urine Protein Urine Glucose (UA) Urine Ketones Urine Blood Urine Nitrite Urine Bilirubin Urine Urobilinogen Ur Leukocyte Esterase Urine WBC (Auto) Urine RBC (Auto) U Hyaline Cast (Auto) U Epithel Cells (Auto) Urine Bacteria (Auto) Ur Random Urea Nitrogn 03/13/20 03/13/20 03/13/20 07:40 07:40 Unknown WBC 3.54 L RBC 3.67 L Hgb 11.2 L Hct 34.2 L MCV 93.2 MCH 30.5 MCHC 32.7 RDW Std Deviation 43.8 RDW Coeff of Faby 13.0 Plt Count 114 L MPV 11.9 H Immature Gran % (Auto) 0.0 Neut % (Auto) 63.8 Lymph % (Auto) 27.4 [place] % (Auto) 6.5 Eos % (Auto) 2.0 Baso % (Auto) 0.3 Neut # (Auto) 2.26 Lymph # (Auto) 0.97 L [place] # (Auto) 0.23 Eos # (Auto) 0.07 Baso # (Auto) 0.01 Immature Gran # (Auto) 0.00 Sodium 142 Potassium 4.8 Chloride 114 H Carbon Dioxide 23 Anion Gap 6.0 BUN 74 H Creatinine 3.10 H Est Cr Clr Drug Dosing 24.3 Est GFR ( Amer) 22.3 Est GFR (Non-Af Amer) 19.2 BUN/Creatinine Ratio 24.0 H Glucose 95 POC Glucose Calcium 8.3 L Phosphorus Magnesium Urine Color Urine Appearance Urine pH Ur Specific [place] Urine Protein Urine Glucose (UA) Urine Ketones Urine Blood Urine Nitrite Urine Bilirubin Urine Urobilinogen Ur Leukocyte Esterase Urine WBC (Auto) Urine RBC (Auto) U Hyaline Cast (Auto) U Epithel Cells (Auto) Urine Bacteria (Auto) Ur Random Urea Nitrogn 417
[2020-03-13] MEDS: GABAPENTIN 600 MG TAB PO SCH (09:22)
[2020-03-13] MEDS: CITALOPRAM 20 MG TAB PO SCH (09:22)
[2020-03-13] MEDS: METOPROLOL SUCC 50MG EXT REL TAB PO SCH (09:22)
[2020-03-13] MEDS ORDERED: LACTATED RINGER'S 250 ML IV ONE (10:46)
[2020-03-13] MEDS ORDERED: NORMOSOL-R 1,000 ML IV SCH (11:00)
--- NOTE | 2020-03-13 11:07 | Hospitalist Progress Note ---
Date of Service March 13, 2020 Assessment & Plan (1) Acute renal failure (ARF): Ninfa is a 69-year-old male with a past medical history of coronary artery disease status post CABG, history of a-flutter with dual paced pacer ICD, ischemic cardiomyopathy, hypertension, RHIANNA, and GERD who presents on referral from his outpatient provider for acute renal failure with hyperkalemia. Acute renal failure suspect 2/2 prerenal depletion 2/2 GI bleeding/diarrhea and diuretic use -admission BUN/Cr of 96/4.64, down to 74/3.10 with 2.5L in small fluid boluses Patient with 1 month of diarrhea and melena with progressive lightheadedness, has continued to use Bumex twice a day with moderate urine output following doses Aggressive fluid therapy balance against CAD and cardiomyopathy with EF approximately 30% FE urea appropriately elevated at 417 Bladder/renal ultrasound: normal kidneys without hydronephrosis, prostatomegaly with chronic bladder outlet obstruction Hyperkalemia 6.1 on admission, EKG with dual paced rhythm without peaked T waves Received calcium gluconate 1 g, insulin 10 units IV, 1 amp dextrose on admission Down to 4.8 this AM, continuing to carefully bolus and watch BMPs daily - case discussed with nephrology on admission, appreciate continuing recommendations GI bleeding on anticoagulation, no history of peptic ulcer disease Patient anticoagulated on warfarin INR 2.7 on admission Last colonoscopy 10 years ago, no history of abnormal colonoscopy and no family history of colorectal cancer or bleeding Melena x1 month, positive fecal occult blood at outpatient's office day of admi ssion Hemoglobin 13, baseline 14, but suspect hemoconcentrated on admission Trend CBC Hold warfarin No NSAIDs Hold aspirin Protonix 40 mg twice daily GI consulted CAD with history of CABG, ICD with dual paced rhythm Aspirin held for acute bleeding Continue atorvastatin 20 mg daily Bumetanide held for ARF Continue metoprolol 50 mg succinate daily in the morning if blood pressure improved, held for now Hold sotalol 80 mg in the setting of hypotension Anxiety Continue citalopram 20 mg daily GERD PPI as above A flutter Paced ICD/defibrillator present Hold anticoagulation for GI bleed above Beta-shaun as above RHIANNA Continue CPAP nightly Patient reports faithful compliance at home, with good benefit DVT prophylaxis: SCDs, pharmacal prophylaxis contraindicated in the setting of bleed Diet: Low potassium Disposition: PCU CODE STATUS: Full code (2) Acute hyperkalemia: (3) Anticoagulant long-term use: (4) Ischemic cardiomyopathy: (5) Obstructive sleep apnea treated with continuous positive airway pressure (CPAP): (6) GI bleed: Admission and Anticipated Discharge Date Admission Date: March 12, 2020 Supervising Physician Co-Signing Physician Notes I saw the patient concurrent with the resident physician and confirmed carrillo portions of the history and physical examination. When we saw the patient this evening at approximately 6 PM, he was post EGD, seated in the bedside chair without complaints. His blood pressure was low with systolic readings in the 80s, although he was without complaint. He is conversational; no symptoms at present. He does tell me that he would occasionally note a lightheaded/dizzy feeling over the past few weeks; he also noted that his blood pressures have been running lower than normal at home and at other doctor's visits. He saw his telephonic rn earlier this week and he noted that his blood pressure systolic reading was 98 which he thought was low for him. In reviewing of the EMR it looks as if his normal blood pressures run in the 110s to 120s. The EGD this afternoon was unremarkable. Exam Blood pressure now 95/65, pulse 61, respiratory rate 16. Temperature 36.5 C with pulse oximetry reading of 95% on room air Heart regular rate. Lungs clear. Data Repeat potassium was 5.5; down from admission but up from this afternoon. Hemoglobin 11.5. BUN 60, creatinine 2.5. IMPRESSION GI bleed EGD unremarkable Hold warfarin and check daily INR Colonoscopy tentatively planned for Monday Continue Protonix drip Acute renal failure Hyperkalemia Continue IV fluid reticent of his ischemic cardiomyopathy Recheck BMP (potassium) in about 4 hours Chronic anticoagulation Hold warfarin No indication to reverse at this point. Ischemic cardiomyopathy Monitor with respect to IVF Hold parameter for beta shaun with respect to BP Subjective 69 yo M admitted for acute renal failure and ongoing melanotic diarrhea. This morning feeling well. Says he's been having diarrheal episodes for approximately 1 month, with it acutely increasing in number of episodes to approximately 3 per day in the last week. in the last 4-5 days he has noticed the diarrhea has been black. He has abdominal pain in the morning, but otherwise denies any cramping, nausea, vomiting. Denies any BRBPR. He went to his physician's office where the FOBT test performed was positive. Of note he was sent from his physician's office to the hospital because his creatinine was significantly elevated and he was hyperkalemic. He denies any weakness, chest pain, muscle cramping. No changes in urine pattern, no pain with urination. Review of Systems Constitutional: no fever, no chills, no body aches and no fatigue Respiratory: no cough and no dyspnea Cardiovascular: no chest pain, no dyspnea and no edema Gastrointestinal: + abdominal pain and + diarrhea/loose stools; no nausea, no vomiting and no constipation Musculoskeletal: no back pain and no muscle weakness Physical Exam Physical Exam: Constitutional: obese, in no apparent distress, sitting comfortably in bed. Eyes: EOMI, pupils equal and reactive bilaterally, no scleral icterus Cardiac: RRR, no murmurs, gallops or rubs. Normal S1, S2 Pulm: CTA BL, no wheezes, rhonchi, crackles or rubs, moving air well throughout both lungs Abd: soft, BL lower quadrants TTP,distended, tympanic to percussion, normal bowel sounds, no rebound or guarding Extremities: amputation of left leg, no edema of right leg Results & Data Results & Data ([facility]) Vital Signs (Past 12 Hours) Vital Signs Temp Pulse Pulse Resp BP BP Pulse Ox 03/13/20 07:52 37.0 C 69 16 90/60 L 99 03/13/20 04:00 36.9 C 61 18 93/57 L 94 03/13/20 00:00 98/62 L 03/12/20 23:31 72 03/12/20 23:20 36.6 C 65 16 91/64 L 97 03/12/20 23:07 80/43 L Laboratory Results WBC 3.54 K/uL (4.8-10.8) L 03/13/20 07:40 RBC 3.67 M/uL (4.7-6.1) L 03/13/20 07:40 Hgb 11.2 g/dL (14.0-18.0) L 03/13/20 07:40 Hct 34.2 % (42-52) L 03/13/20 07:40 MCV 93.2 fL (80-100) 03/13/20 07:40 MCH 30.5 pg (25-34) 03/13/20 07:40 MCHC 32.7 g/dL (32-36) 03/13/20 07:40 RDW Std Deviation 43.8 fL (36.4-46.3) 03/13/20 07:40 RDW Coeff of Faby 13.0 % (11.5-14.5) 03/13/20 07:40 Plt Count 114 K/uL (130-400) L 03/13/20 07:40 MPV 11.9 fL (7.4-10.4) H 03/13/20 07:40 Immature Gran % (Auto) 0.0 % 03/13/20 07:40 Neut % (Auto) 63.8 % 03/13/20 07:40 Lymph % (Auto) 27.4 % 03/13/20 07:40 Keith % (Auto) 6.5 % 03/13/20 07:40 Eos % (Auto) 2.0 % 03/13/20 07:40 Baso % (Auto) 0.3 % 03/13/20 07:40 Neut # (Auto) 2.26 K/uL (1.4-6.5) 03/13/20 07:40 Lymph # (Auto) 0.97 K/uL (1.2-3.4) L 03/13/20 07:40 Keith # (Auto) 0.23 K/uL (0.11-0.59) 03/13/20 07:40 Eos # (Auto) 0.07 K/uL (0-0.5) 03/13/20 07:40 Baso # (Auto) 0.01 K/uL (0-0.2) 03/13/20 07:40 Immature Gran # (Auto) 0.00 K/uL (0.00-0.02) 03/13/20 07:40 Sodium 142 mmol/L (136-145) 03/13/20 07:40 Potassium 4.8 mmol/L (3.5-5.1) 03/13/20 07:40 Chloride 114 mmol/L (98-107) H 03/13/20 07:40 Carbon Dioxide 23 mmol/L (21-32) 03/13/20 07:40 Anion Gap 6.0 (3-11) 03/13/20 07:40 BUN 74 mg/dl (7-18) H 03/13/20 07:40 Creatinine 3.10 mg/dl (0.6-1.4) H 03/13/20 07:40 Est Cr Clr Drug Dosing 24.3 ml/min 03/13/20 07:40 Est GFR ( Amer) 22.3 03/13/20 07:40 Est GFR (Non-Af Amer) 19.2 03/13/20 07:40 BUN/Creatinine Ratio 24.0 (10-20) H 03/13/20 07:40 Glucose 95 mg/dl (70-99) 03/13/20 07:40 POC Glucose 78 mg/dl (70-99) 03/12/20 21:39 Calcium 8.3 mg/dl (8.5-10.1) L 03/13/20 07:40 Phosphorus 3.8 mg/dl (2.5-4.9) 03/12/20 19:28 Magnesium 1.9 mg/dl (1.8-2.4) 03/12/20 19:28 Urine Color Yellow 03/12/20 19:50 Urine Appearance Clear (Clear) 03/12/20 19:50 Urine pH 5.0 (4.5-7.5) 03/12/20 19:50 Ur Specific [place] 1.013 (1.000-1.030) 03/12/20 19:50 Urine Protein Negative (Negative) 03/12/20 19:50 Urine Glucose (UA) Negative (Negative) 03/12/20 19:50 Urine Ketones Negative (Negative) 03/12/20 19:50 Urine Blood Trace (Negative) H 03/12/20 19:50 Urine Nitrite Negative (Negative) 03/12/20 19:50 Urine Bilirubin Negative (Negative) 03/12/20 19:50 Urine Urobilinogen Negative (Negative) 03/12/20 19:50 Ur Leukocyte Esterase Negative (Negative) 03/12/20 19:50 Urine WBC (Auto) 1-5 /hpf (0-5) 03/12/20 19:50 Urine RBC (Auto) 0-4 /hpf (0-4) 03/12/20 19:50 U Hyaline Cast (Auto) 0 /lpf (0-5) 03/12/20 19:50 U Epithel Cells (Auto) 0-5 /lpf (0-5) 03/12/20 19:50 Urine Bacteria (Auto) Negative (Negative) 03/12/20 19:50 Ur Random Urea Nitrogn 417 mg/dl 03/13/20 Unknown Resident Activity Tracking Resident Involvement: Resident Care Provided Care Provided: Adult Hospital Medicine (1) Acute renal failure (ARF) Acute renal failure type: unspecified Qualified Code(s): N17.9 - Acute kidney failure, unspecified
[2020-03-13 11:40] LABS: Basophils # (auto) 0.01 K/uL (0-0.2); Basophils % (auto) 0.3 %; Eosinophils # (auto) 0.05 K/uL (0-0.5); Eosinophils % (auto) 1.3 %; Hematocrit (blood only) 36.7 % (42-52); Hemoglobin 12.1 g/dL (14.0-18.0); Lymphocytes # (auto) 0.74 K/uL (1.2-3.4); Mean Corpuscular Hemoglobin 30.2 pg (25-34); Mean Corpuscular Volume 91.5 fL (80-100); Monocytes # (auto) 0.27 K/uL (0.11-0.59); Monocytes % (auto) 6.9 %; Neutrophils # (auto) 2.83 K/uL (1.4-6.5); Neutrophils % (auto) 72.5 %; Platelet Count 106 K/uL (130-400); RDW Standard Deviation 43.5 fL (36.4-46.3); Red Blood Count 4.01 M/uL (4.7-6.1)
[2020-03-13 12:06] LABS: BUN Creatinine Ratio 26.6 (10-20); Calcium 8.3 mg/dl (8.5-10.1); Creatinine Clr Calc Pharmacy 28.1 ml/min; Est GFR (African American) 26.5; Est GFR (Non-African American) 22.9; Potassium 5.1 mmol/L (3.5-5.1)
--- NOTE | 2020-03-13 13:24 | Nephrology Consultation ---
Date of Consultation March 13, 2020 Assessment & Plan (1) Acute renal failure (ARF): Clinically consistent with prerenal causes from dehydration and acute blood loss anemia. Creatinine improving with IVF. Non-oliguric. UA bland and microscopy acellular. Renal US without obstruction. Metabolic profile acceptable this morning. IV normosol ordered at 125 ml/hr to encourage a continued positive fluid balance. Appears euvolemic to slightly euvolemic on exam at this time. BP remains slightly low but improving. Medications are appropriately dosed for kidney dysfunction. Bumex has been held. (2) Acute hyperkalemia: No EKG changes. Improving with IVF and increased UOP. Kidney function improving. IVF provided to continue to encourage urine output. (3) Anticoagulant long-term use: Held due to GIB. (4) Ischemic cardiomyopathy: Volume status acceptable at this time. Diuretics held. Will continue to closely monitor. (5) Obstructive sleep apnea treated with continuous positive airway pressure (CPAP): (6) GI bleed: EGD planned for today. History of Present Illness Reason for Consultation: EVIE Requesting Physician: Mary Ellen Leger DO Attending Physician: Mary Ellen Leger DO History of Present Illness Mr. Ninfa Ruggiero is a 69-year-old male with a coronary artery disease status post CABG, history of a flutter with dual paced pacer ICD, ischemic cardiomyopathy (LVEF 35%), s/p BKA for surgical complications assoicated with CABG vein grafting, hypertension, RHIANNA, BPH, and GERD who presented to the ER at [facility] yesterday by referral from his PCP for evaluation of acute renal failure and hyperkalemia. Laboratory studies on presentation notable for a serum creatinine of 4.8 mg/dL. Potassium slightly elevated at 6.1 mmol/L. Ninfa has been non-oliguric. Creatinine was 2.4 mg/dL in January and prior to this baseline creatinine had been 1.3-1.6 mg/dL for several years. Creatinine in September 2019 was 1.6 mg/dL. UA is bland and microscopy acellular. Renal US from the ER was personally reviewed which demonstrates normal appearing kidneys without evidence of obstruction. Initial evaluation found the patient to be volume depleted. IVF with NSS was provided overnight. Creatinine had improved to 3.3 mg/dL as of this morning. At the time of my assessment, Ninfa felt well without any acute complaints or concerns. Mr. Ruggiero reports his symptoms began about 1 month ago when he developed daily diarrhea. He describes an average of 3 loose bowel movements per day. He reported black stools with blood. Associated symptoms include progressive fatigue and lethargy. He also reported intermittent lightheadedness. He saw his outpatient provider today after symptoms were not improving and continued to worsen who performed a Hemoccult test which was positive for stool blood. Labs were then drawn and Ninfa was referred to the emergency department. Ninfa has been taking his Bumex as prescribed on a daily basis prior to admission. Dr. Miramontes is planning to perform endoscopy today. In the interim, Ninfa was NPO. Allergies Allergy/AdvReac Type Severity Reaction Status Date / Time heparin Allergy Severe CAUSES HIT Verified 03/12/20 20:33 silver AdvReac Intermediate TOPICAL - Verified 03/12/20 20:33 BURNING, PAIN Home Medications Home Medications Medication Instructions Recorded Confirmed Type amoxicillin 500 mg capsule 2,000 mg PO ONCE PRN #30 cap 01/29/19 03/12/20 History aspirin 81 mg tablet,delayed 81 mg PO DAILY tab 01/29/19 03/12/20 History release atorvastatin 20 mg tablet 20 mg PO DAILY tab 01/29/19 03/12/20 History bumetanide 1 mg tablet 1 mg PO BID tab 01/29/19 03/12/20 History citalopram 20 mg tablet 20 mg PO DAILY tab 01/29/19 03/12/20 History gabapentin 600 mg tablet 600 mg PO BID tab 01/29/19 03/12/20 History lorazepam 0.5 mg tablet 0.5 mg PO Q6H PRN tab 01/29/19 03/12/20 History pantoprazole 40 mg tablet,delayed 40 mg PO DAILY #30 tab 01/29/19 03/12/20 History release potassium chloride 10 mEq 20 meq PO DAILY cap 01/29/19 03/12/20 History capsule,extended release warfarin 2 mg tablet 2 mg PO DAILY tab 01/29/19 03/12/20 History zolpidem 10 mg tablet 10 mg PO HS PRN tab 01/29/19 03/12/20 History nitroglycerin 400 mcg/spray 1 sprays SL Q5M PRN #4.9 gm 03/19/19 03/12/20 Rx translingual sotalol 80 mg tablet 80 mg PO BID #90 tab 03/19/19 03/12/20 History metoprolol succinate 50 mg 50 mg PO DAILY #90 tab 01/06/20 03/12/20 Rx tablet,extended release 24 hr sacubitril-valsartan [Entresto] 1 tab PO BID 03/12/20 03/12/20 History Patient History Medical History GERD (gastroesophageal reflux disease) Paroxysmal ventricular tachycardia (11/01/10) Social History Smoking Status: Former smoker Cigarettes Per Day: 20; Second Hand Exposure: No; Hx Alcohol Use: No Hx Substance Use: No Preferred Language: Telugu Communication Ability: Effective 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 Beliefs That Will Affect Care: Taoism marital status: Current Living Situation: Spouse Other Information That Helps Us Care for You: No Feels Safe at Home: Yes Safety Concerns: Feels Safe At This Time Assistive Devices: Glasses Review of Systems Review of Systems: All systems reviewed & are unremarkable except as noted in HPI & below Constitutional: no weight loss, no weight gain and no problem reported Eyes: no problem reported Ear, Nose, Mouth, Throat: no problem reported Respiratory: no problem reported Cardiovascular: no problem reported Gastrointestinal: no problem reported Musculoskeletal: no problem reported Integumentary: no problem reported Neurologic: no problem reported Psychiatric: no problem reported Endocrine: no problem reported Hematologic / Lymphatic: no problem reported Physical Exam Constitutional: well developed; no acute distress Eyes: no scleral abnormality and no corneal abnormality ENMT: Mouth: no oral mucosal abnormality and oral mucous membranes not dry Neck: normal visual inspection and trachea midline Respiratory: normal respiratory effort Auscultation: lungs clear to auscultation bilaterally Cardiovascular: Rate/Rhythm: regular rate Heart Sounds: normal S1 and normal S2 Extremities: no edema Musculoskeletal: Extremities: no cyanosis and no clubbing Skin: normal turgor; no lesions Neurologic: Motor/Sensory: no tremor and no asterixis Psychiatric: Orientation: alert and oriented x 3 Results & Data ([facility]) Vital Signs (Past 12 Hours) Vital Signs Temp Pulse Resp BP Pulse Ox 03/13/20 12:10 36.9 C 80 18 104/69 96 03/13/20 07:52 37.0 C 69 16 90/60 L 99 03/13/20 04:00 36.9 C 61 18 93/57 L 94 Laboratory Results Laboratory Results - last 24 hr 03/12/20 03/12/20 03/12/20 19:28 19:50 21:39 WBC RBC Hgb Hct MCV MCH MCHC RDW Std Deviation RDW Coeff of Faby Plt Count MPV Immature Gran % (Auto) Neut % (Auto) Lymph % (Auto) [place] % (Auto) Eos % (Auto) Baso % (Auto) Neut # (Auto) Lymph # (Auto) [place] # (Auto) Eos # (Auto) Baso # (Auto) Immature Gran # (Auto) Sodium 138 Potassium 6.1 H* Chloride 109 H Carbon Dioxide 23 Anion Gap 5.0 BUN 96 H Creatinine 4.64 H* Est Cr Clr Drug Dosing 16.4 Est GFR ( Amer) 13.7 Est GFR (Non-Af Amer) 11.8 BUN/Creatinine Ratio 21.0 H Glucose 83 POC Glucose 78 Calcium 8.6 Phosphorus 3.8 Magnesium 1.9 Urine Color Yellow Urine Appearance Clear Urine pH 5.0 Ur Specific [place] 1.013 Urine Protein Negative Urine Glucose (UA) Negative Urine Ketones Negative Urine Blood Trace H Urine Nitrite Negative Urine Bilirubin Negative Urine Urobilinogen Negative Ur Leukocyte Esterase Negative Urine WBC (Auto) 1-5 Urine RBC (Auto) 0-4 U Hyaline Cast (Auto) 0 U Epithel Cells (Auto) 0-5 Urine Bacteria (Auto) Negative Ur Random Urea Nitrogn COVID-19 Eval Order SARS-CoV-2, RNA, NAAT 03/12/20 03/13/20 03/13/20 23:39 03:45 03:45 WBC 4.13 L RBC 3.87 L Hgb 11.7 L Hct 36.0 L MCV 93.0 MCH 30.2 MCHC 32.5 RDW Std Deviation 43.6 RDW Coeff of Faby 13.0 Plt Count 112 L MPV 11.7 H Immature Gran % (Auto) 0.2 Neut % (Auto) 73.7 Lymph % (Auto) 17.4 [place] % (Auto) 7.5 Eos % (Auto) 1.0 Baso % (Auto) 0.2 Neut # (Auto) 3.04 Lymph # (Auto) 0.72 L [place] # (Auto) 0.31 Eos # (Auto) 0.04 Baso # (Auto) 0.01 Immature Gran # (Auto) 0.01 Sodium 142 142 Potassium 5.3 H 5.3 H Chloride 114 H 114 H Carbon Dioxide 25 23 Anion Gap 3.0 5.0 BUN 92 H 79 H Creatinine 3.93 H D 3.30 H D Est Cr Clr Drug Dosing 19.2 22.8 Est GFR ( Amer) 16.7 20.6 Est GFR (Non-Af Amer) 14.4 17.8 BUN/Creatinine Ratio 23.3 H 23.9 H Glucose 110 H 126 H POC Glucose Calcium 7.7 L 7.8 L Phosphorus Magnesium Urine Color Urine Appearance Urine pH Ur Specific [place] Urine Protein Urine Glucose (UA) Urine Ketones Urine Blood Urine Nitrite Urine Bilirubin Urine Urobilinogen Ur Leukocyte Esterase Urine WBC (Auto) Urine RBC (Auto) U Hyaline Cast (Auto) U Epithel Cells (Auto) Urine Bacteria (Auto) Ur Random Urea Nitrogn COVID-19 Eval Order SARS-CoV-2, RNA, NAAT 03/13/20 03/13/20 03/13/20 07:40 07:40 11:32 WBC 3.54 L RBC 3.67 L Hgb 11.2 L Hct 34.2 L MCV 93.2 MCH 30.5 MCHC 32.7 RDW Std Deviation 43.8 RDW Coeff of Faby 13.0 Plt Count 114 L MPV 11.9 H Immature Gran % (Auto) 0.0 Neut % (Auto) 63.8 Lymph % (Auto) 27.4 [place] % (Auto) 6.5 Eos % (Auto) 2.0 Baso % (Auto) 0.3 Neut # (Auto) 2.26 Lymph # (Auto) 0.97 L [place] # (Auto) 0.23 Eos # (Auto) 0.07 Baso # (Auto) 0.01 Immature Gran # (Auto) 0.00 Sodium 142 142 Potassium 4.8 5.1 Chloride 114 H 113 H Carbon Dioxide 23 23 Anion Gap 6.0 6.0 BUN 74 H 71 H Creatinine 3.10 H 2.68 H D Est Cr Clr Drug Dosing 24.3 28.1 Est GFR ( Amer) 22.3 26.5 Est GFR (Non-Af Amer) 19.2 22.9 BUN/Creatinine Ratio 24.0 H 26.6 H Glucose 95 94 POC Glucose Calcium 8.3 L 8.3 L Phosphorus Magnesium Urine Color Urine Appearance Urine pH Ur Specific [place] Urine Protein Urine Glucose (UA) Urine Ketones Urine Blood Urine Nitrite Urine Bilirubin Urine Urobilinogen Ur Leukocyte Esterase Urine WBC (Auto) Urine RBC (Auto) U Hyaline Cast (Auto) U Epithel Cells (Auto) Urine Bacteria (Auto) Ur Random Urea Nitrogn COVID-19 Eval Order SARS-CoV-2, RNA, NAAT 03/13/20 03/13/20 03/13/20 11:32 12:30 12:30 WBC 3.90 L RBC 4.01 L Hgb 12.1 L Hct 36.7 L MCV 91.5 MCH 30.2 MCHC 33.0 RDW Std Deviation 43.5 RDW Coeff of Faby 13.0 Plt Count 106 L MPV 11.0 H Immature Gran % (Auto) 0.0 Neut % (Auto) 72.5 Lymph % (Auto) 19.0 [place] % (Auto) 6.9 Eos % (Auto) 1.3 Baso % (Auto) 0.3 Neut # (Auto) 2.83 Lymph # (Auto) 0.74 L [place] # (Auto) 0.27 Eos # (Auto) 0.05 Baso # (Auto) 0.01 Immature Gran # (Auto) 0.00 Sodium Potassium Chloride Carbon Dioxide Anion Gap BUN Creatinine Est Cr Clr Drug Dosing Est GFR ( Amer) Est GFR (Non-Af Amer) BUN/Creatinine Ratio Glucose POC Glucose Calcium Phosphorus Magnesium Urine Color Urine Appearance Urine pH Ur Specific [place] Urine Protein Urine Glucose (UA) Urine Ketones Urine Blood Urine Nitrite Urine Bilirubin Urine Urobilinogen Ur Leukocyte Esterase Urine WBC (Auto) Urine RBC (Auto) U Hyaline Cast (Auto) U Epithel Cells (Auto) Urine Bacteria (Auto) Ur Random Urea Nitrogn COVID-19 Eval [facility] SARS-CoV-2, RNA, NAAT NEGATIVE 03/13/20 Unknown WBC RBC Hgb Hct MCV MCH MCHC RDW Std Deviation RDW Coeff of Faby Plt Count MPV Immature Gran % (Auto) Neut % (Auto) Lymph % (Auto) [place] % (Auto) Eos % (Auto) Baso % (Auto) Neut # (Auto) Lymph # (Auto) [place] # (Auto) Eos # (Auto) Baso # (Auto) Immature Gran # (Auto) Sodium Potassium Chloride Carbon Dioxide Anion Gap BUN Creatinine Est Cr Clr Drug Dosing Est GFR ( Amer) Est GFR (Non-Af Amer) BUN/Creatinine Ratio Glucose POC Glucose Calcium Phosphorus Magnesium Urine Color Urine Appearance Urine pH Ur Specific [place] Urine Protein Urine Glucose (UA) Urine Ketones Urine Blood Urine Nitrite Urine Bilirubin Urine Urobilinogen Ur Leukocyte Esterase Urine WBC (Auto) Urine RBC (Auto) U Hyaline Cast (Auto) U Epithel Cells (Auto) Urine Bacteria (Auto) Ur Random Urea Nitrogn 417 COVID-19 Eval Order SARS-CoV-2, RNA, NAAT Diagnostic Findings ULTRASOUND KIDNEYS AND BLADDER CLINICAL HISTORY: Acute renal insufficiency. COMPARISON STUDY: Abdominal CT dated 07/04/2018 TECHNIQUE: Real-time, grayscale, and color flow sonography of the kidneys and bladder is performed. Images are reviewed in the transverse and longitudinal planes. FINDINGS: Kidneys: The kidneys are normal in size and echotexture. The right kidney measures 10.5 x 4.6 x 5.0 cm and the left kidney measures 11.1 x 4.7 x 3.7 cm. There is no hydronephrosis. No shadowing renal calculi are identified. There is no sonographic evidence of contour deforming renal mass lesion. No perinephric fluid is identified. Bladder: Prostate gland is enlarged and heterogeneous noting median lobe hypertrophy. The bladder wall appears thickened and trabeculated suggesting chronic outlet obstruction. Bilateral ureteral jets were seen. Upper abdomen: Survey images of the spleen show evidence of splenomegaly. Spleen measures 13.8 cm in length. IMPRESSION: 1. The kidneys are normal in size and without hydronephrosis. 2. Prostatomegaly with evidence of chronic bladder outlet obstruction. 3. Mild splenomegaly. PG Care Time/CCT Total # of Minutes Spent Total Time Spent with Patient: Total time spent is greater than 50% in coordination of care (as documented) at patient's floor/unit and/or counseling patient: Coding Level of Care Code 91850 Inpt Consult Level 4 Diagnoses Acute renal failure (ARF) N17.9 Acute renal failure type: unspecified Acute hyperkalemia E87.5 Anticoagulant long-term use Z79.01 Ischemic cardiomyopathy I25.5 Obstructive sleep apnea treated with continuous positive airway pressure (CPAP) G47.33; Z99.89 GI bleed K92.2 (1) Acute renal failure (ARF) Acute renal failure type: unspecified Qualified Code(s): N17.9 - Acute kidney failure, unspecified
--- NOTE | 2020-03-13 13:55 | Anesthesiology Consultation ---
Date of Service March 13, 2020 Assessment & Plan Chart Review Chart Review: Acceptable Risk for Surgery and Patient NOT seen in Pre Admission Testing Consults Requested none ASA ASA4 Proposed Anesthesia Anesthesia Type: MAC History Surgery Operation Date: 03/13/20 15:45 Proposed Procedures p Esophagogastroduodenoscopy Dr Kulwinder Miramontes Height/Weight Height: 5 ft 9 in Weight: 90.6 kg Allergies Allergy/AdvReac Type Severity Reaction Status Date / Time heparin Allergy Severe CAUSES HIT Verified 03/12/20 20:33 silver AdvReac Intermediate TOPICAL - Verified 03/12/20 20:33 BURNING, PAIN Medications Home Medications Medication Instructions Recorded Confirmed Last Taken amoxicillin 500 mg capsule 2,000 mg PO ONCE PRN #30 cap 01/29/19 03/12/20 Unknown aspirin 81 mg tablet,delayed 81 mg PO DAILY tab 01/29/19 03/12/20 03/12/20 release atorvastatin 20 mg tablet 20 mg PO DAILY tab 01/29/19 03/12/20 03/12/20 bumetanide 1 mg tablet 1 mg PO BID tab 01/29/19 03/12/20 03/12/20 08:00 citalopram 20 mg tablet 20 mg PO DAILY tab 01/29/19 03/12/20 03/12/20 gabapentin 600 mg tablet 600 mg PO BID tab 01/29/19 03/12/20 03/12/20 08:00 lorazepam 0.5 mg tablet 0.5 mg PO Q6H PRN tab 01/29/19 03/12/20 Unknown pantoprazole 40 mg tablet,delayed 40 mg PO DAILY #30 tab 01/29/19 03/12/20 03/12/20 release potassium chloride 10 mEq 20 meq PO DAILY cap 01/29/19 03/12/20 03/12/20 capsule,extended release warfarin 2 mg tablet 2 mg PO DAILY tab 01/29/19 03/12/20 Unknown zolpidem 10 mg tablet 10 mg PO HS PRN tab 01/29/19 03/12/20 Unknown nitroglycerin 400 mcg/spray 1 sprays SL Q5M PRN #4.9 gm 03/19/19 03/12/20 Unknown translingual sotalol 80 mg tablet 80 mg PO BID #90 tab 03/19/19 03/12/20 03/12/20 08:00 metoprolol succinate 50 mg 50 mg PO DAILY #90 tab 01/06/20 03/12/20 03/12/20 tablet,extended release 24 hr sacubitril-valsartan [Entresto] 1 tab PO BID 03/12/20 03/12/20 03/12/20 08:00 Active Medications Generic Name Dose Route Start Last Admin Trade Name Pan PRN Reason Stop Dose Admin Citalopram Hydrobromide 20 mg 03/13/20 09:00 03/13/20 09:22 Citalopram 20 Mg Tab PO 04/12/20 08:59 20 mg DAILY SKYLAR Administration Gabapentin 300 mg 03/13/20 09:00 03/13/20 09:22 Gabapentin 600 Mg Tab PO 04/12/20 08:59 300 mg DAILY SKYLAR Administration Pantoprazole Sodium 40 mg/ 10 mls @ 5 mls/min 03/12/20 23:31 03/13/20 09:38 Syringe IV 04/11/20 23:30 5 mls/min BID SKYLAR Administration Parenteral Electrolytes 1,000 mls @ 125 mls/hr 03/13/20 11:00 03/13/20 11:54 Normosol-R IV 03/13/20 18:59 125 mls/hr .Q8H SKYLAR Administration Metoprolol Succinate 50 mg 03/13/20 09:00 03/13/20 09:22 Metoprolol Succ 50mg Ext Rel Tab PO 04/12/20 08:59 50 mg DAILY SKYLAR Administration NPO Date Last Intake of Fluids: 03/12/20 Time Last Intake of Fluids: 23:59 Date Last Intake of Solids: 03/12/20 Time Last Intake of Solids: 22:00 Past Medical History Medical History GERD (gastroesophageal reflux disease) Paroxysmal ventricular tachycardia (11/01/10) Exercise / Class Metabolic Activity III < 4 Walking/Shop/Light housework Past Anesthesia History No Hx of Anesthesia Complications and No Family Hx of Anesthesia Complications History of PONV No Hx of PONV and No Hx of Motion Sickness Social History Smoking Status: Former smoker Smoking cigarettes per day: 20 Hx Alcohol Use: No Hx Substance Use: No Physical Exam Vital Signs Last Vital Signs Temp 36.9 C 03/13/20 12:10 Pulse 80 03/13/20 12:10 Resp 18 03/13/20 12:10 BP 104/69 03/13/20 12:10 Pulse Ox 96 03/13/20 12:10 Testing Laboratory Results 03/13/20 11:32 03/13/20 11:32 Urine Color Yellow 03/12/20 19:50 Urine Appearance Clear (Clear) 03/12/20 19:50 Urine pH 5.0 (4.5-7.5) 03/12/20 19:50 Ur Specific [place] 1.013 (1.000-1.030) 03/12/20 19:50 Urine Protein Negative (Negative) 03/12/20 19:50 Urine Glucose (UA) Negative (Negative) 03/12/20 19:50 Urine Ketones Negative (Negative) 03/12/20 19:50 Urine Nitrite Negative (Negative) 03/12/20 19:50 Ur Leukocyte Esterase Negative (Negative) 03/12/20 19:50 Urine WBC (Auto) 1-5 /hpf (0-5) 03/12/20 19:50 Urine RBC (Auto) 0-4 /hpf (0-4) 03/12/20 19:50 U Hyaline Cast (Auto) 0 /lpf (0-5) 03/12/20 19:50 U Epithel Cells (Auto) 0-5 /lpf (0-5) 03/12/20 19:50 Urine Bacteria (Auto) Negative (Negative) 03/12/20 19:50
[2020-03-13] MEDS ORDERED: ePHEDrine sulfate 50 MG/ML AMP IV PRN (14:04)
[2020-03-13] MEDS ORDERED: ATROPINE SULFATE 0.1 MG/ML 10ML SYR IV PRN (14:04)
--- NOTE | 2020-03-13 14:25 | History & Physical Report ---
Date of Service March 13, 2020 Assessment & Plan Admission and Anticipated Discharge Date Admission Date: March 12, 2020 History of Present Illness Chief Complaint: melena Primary Care Provider: Will Ritchie MD For EGD Allergies Allergy/AdvReac Type Severity Reaction Status Date / Time heparin Allergy Severe CAUSES HIT Verified 03/12/20 20:33 silver AdvReac Intermediate TOPICAL - Verified 03/12/20 20:33 BURNING, PAIN Home Medications Home Medications Medication Instructions Recorded Confirmed Type amoxicillin 500 mg capsule 2,000 mg PO ONCE PRN #30 cap 01/29/19 03/12/20 History aspirin 81 mg tablet,delayed 81 mg PO DAILY tab 01/29/19 03/12/20 History release atorvastatin 20 mg tablet 20 mg PO DAILY tab 01/29/19 03/12/20 History bumetanide 1 mg tablet 1 mg PO BID tab 01/29/19 03/12/20 History citalopram 20 mg tablet 20 mg PO DAILY tab 01/29/19 03/12/20 History gabapentin 600 mg tablet 600 mg PO BID tab 01/29/19 03/12/20 History lorazepam 0.5 mg tablet 0.5 mg PO Q6H PRN tab 01/29/19 03/12/20 History pantoprazole 40 mg tablet,delayed 40 mg PO DAILY #30 tab 01/29/19 03/12/20 History release potassium chloride 10 mEq 20 meq PO DAILY cap 01/29/19 03/12/20 History capsule,extended release warfarin 2 mg tablet 2 mg PO DAILY tab 01/29/19 03/12/20 History zolpidem 10 mg tablet 10 mg PO HS PRN tab 01/29/19 03/12/20 History nitroglycerin 400 mcg/spray 1 sprays SL Q5M PRN #4.9 gm 03/19/19 03/12/20 Rx translingual sotalol 80 mg tablet 80 mg PO BID #90 tab 03/19/19 03/12/20 History metoprolol succinate 50 mg 50 mg PO DAILY #90 tab 01/06/20 03/12/20 Rx tablet,extended release 24 hr sacubitril-valsartan [Entresto] 1 tab PO BID 03/12/20 03/12/20 History Past Med/Surg History Medical History GERD (gastroesophageal reflux disease) Paroxysmal ventricular tachycardia (11/01/10) Social History Smoking Status: Former smoker Cigarettes Per Day: 20; Second Hand Exposure: No; Hx Alcohol Use: No Hx Substance Use: No Preferred Language: Nauruan Communication Ability: Effective Track Laying Supervisor Required: No Beliefs That Will Affect Care: Baptism marital status: Current Living Situation: Spouse Other Information That Helps Us Care for You: No Feels Safe at Home: Yes Safety Concerns: Feels Safe At This Time Assistive Devices: Glasses Physical Exam Constitutional: well developed and well nourished ENMT: Ears: + hearing impairment Respiratory: normal respiratory effort Cardiovascular: Rate/Rhythm: regular rate and regular rhythm Gastrointestinal (Abdomen): Percussion/Palpation: abdomen soft Results & Data ([place]) Vital Signs (Past 12 Hours) Vital Signs Temp Pulse Resp BP Pulse Ox 03/13/20 13:55 36.7 C 74 18 90/63 L 97 03/13/20 12:10 36.9 C 80 18 104/69 96 03/13/20 07:52 37.0 C 69 16 90/60 L 99 03/13/20 04:00 36.9 C 61 18 93/57 L 94 Code Status & VTE Plan VTE Prophylaxis Plan VTE Prophylaxis will be ordered: Yes
[2020-03-13] MEDS ORDERED: SODIUM CHLORIDE 0.9% 1000ML 1,000 ML IV SCH (14:30)
[2020-03-13] MEDS ORDERED: GLYCOPYRROLATE 0.2 MG/ML VIAL ONE (14:39)
[2020-03-13] MEDS ORDERED: ONDANSETRON INJ 2 MG/ML 2 ML VIAL ONE (14:39)
[2020-03-13] MEDS ORDERED: PROPOFOL IV EMULSION 10 MG/ML 20 ML VIAL IV ONE (14:39)
[2020-03-13] MEDS ORDERED: LIDOCAINE HCL 2% 2 ML VIAL/AMP(20MG/ML) INFIL ONE (14:39)
--- NOTE | 2020-03-13 14:44 | GI REPORT ---
Patient Name: Ninfa Ruggiero Procedure Date: 03/13/2020 2:16 PM Date of : 1950 Admit Type: Inpatient Age: 69 Gender: Male Attending MD: Gaetano Miramontes MD Procedure: Upper GI endoscopy Providers: Gaetano Miramontes MD Referring MD: Mary Ellen Leger Indications: Heme positive stool, Melena Medicines: Propofol total dose 150 mg IV, Lidocaine 80 mg IV, Ondansetron 4 mg IV Complications: No immediate complications. Estimated Blood Loss: Estimated blood loss: none. Procedure: Pre-Anesthesia Assessment: - Prior to the procedure, a History and Physical was performed, and patient medications, allergies and sensitivities were reviewed. The patient's tolerance of previous anesthesia was reviewed. After obtaining informed consent, the endoscope was passed under direct vision. Throughout the procedure, the patient's blood pressure, pulse, and oxygen saturations were monitored continuously. The Endoscope was introduced through the mouth, and advanced to the third part of duodenum. The upper GI endoscopy was accomplished without difficulty. The patient tolerated the procedure well. Findings: The Z-line was regular and was found 42 cm from the incisors. The examined esophagus was normal. The entire examined stomach was normal. The first portion of the duodenum, second portion of the duodenum, third portion of the duodenum and examined duodenum were normal. Impression: - Z-line regular, 42 cm from the incisors. - Normal esophagus. - Normal stomach. - Normal first portion of the duodenum, second portion of the duodenum, third portion of the duodenum and examined duodenum. - No specimens collected. Recommendation: - Return patient to [facility] for ongoing care. - Perform a colonoscopy in 3 days. Gaetano Miramontes M.D. Gaetano Miramontes MD 03/13/2020 2:43:59 PM This report has been signed electronically. Note Initiated On: 03/13/2020 2:16 PM Number of Addenda: 0 I attest to the content of the Intraoperative Record and orders documented therein, exceptions below {[id number]}
--- NOTE | 2020-03-13 14:55 | Anesthesiology Progress Note ---
Date of Service March 13, 2020 Anesthesia Post Procedure Vital Signs Vital Signs: Temp Pulse Pulse Resp BP BP Pulse Ox 03/13/20 14:44 63 16 107/70 95 03/13/20 13:55 36.7 C 74 18 90/63 L 97 03/13/20 12:10 36.9 C 80 18 104/69 96 03/13/20 07:52 37.0 C 69 16 90/60 L 99 03/13/20 04:00 36.9 C 61 18 93/57 L 94 03/13/20 00:00 98/62 L 03/12/20 23:31 72 03/12/20 23:20 36.6 C 65 16 91/64 L 97 03/12/20 23:07 80/43 L 03/12/20 23:00 60 21 03/12/20 22:51 60 18 03/12/20 22:49 60 16 81/41 L 03/12/20 22:41 60 19 03/12/20 22:40 60 23 75/45 L 03/12/20 22:38 18 77/48 L 03/12/20 22:36 63 14 71/42 L 03/12/20 22:34 63 18 77/45 L 03/12/20 22:31 64 14 03/12/20 22:30 65 14 74/50 L 03/12/20 22:20 60 14 92 03/12/20 22:10 60 12 92 03/12/20 22:01 60 17 93 03/12/20 22:00 60 17 81/52 L 93 03/12/20 21:50 60 18 92 03/12/20 21:40 66 17 92 03/12/20 21:31 19 93 03/12/20 21:30 60 19 117/78 93 03/12/20 21:22 60 17 95 03/12/20 21:21 60 15 108/76 95 03/12/20 21:20 60 16 96 03/12/20 21:10 60 19 95 03/12/20 21:00 60 14 82/51 L 94 03/12/20 20:50 62 15 96 03/12/20 20:40 24 03/12/20 20:30 75 19 03/12/20 20:20 64 18 96 03/12/20 20:15 60 15 94 11/05/20 20:04 60 15 83/59 L 98 03/12/20 19:02 36.9 C 77 20 91/59 L 98 Transfer of Care Handoff Completed per policy Notes Mental Status: alert / awake / arousable Patient Amnestic to Procedure: Yes Nausea / Vomiting: adequately controlled Pain: adequately controlled Airway Patency, RR, SpO2: stable & adequate BP & HR: stable & adequate Hydration State: stable & adequate Anesthetic Complications: no major complications apparent
[2020-03-13 17:12] LABS: BUN Creatinine Ratio 24.1 (10-20); Calcium 8.5 mg/dl (8.5-10.1); Creatinine Clr Calc Pharmacy 30.2 ml/min; Est GFR (African American) 28.9; Est GFR (Non-African American) 24.9; Potassium 5.5 mmol/L (3.5-5.1)
[2020-03-13 17:24] LABS: Basophils # (auto) 0.01 K/uL (0-0.2); Basophils % (auto) 0.3 %; Eosinophils # (auto) 0.05 K/uL (0-0.5); Eosinophils % (auto) 1.4 %; Hematocrit (blood only) 36.2 % (42-52); Hemoglobin 11.5 g/dL (14.0-18.0); Immature Granulocytes # (auto) 0.01 K/uL (0.00-0.02); Immature Granulocytes % (auto) 0.3 %; Lymphocytes # (auto) 0.68 K/uL (1.2-3.4); Lymphocytes % (auto) 19.3 %; Mean Corpuscular Hemoglobin 29.8 pg (25-34); Mean Corpuscular Hgb Conc 31.8 g/dL (32-36); Mean Corpuscular Volume 93.8 fL (80-100); Monocytes # (auto) 0.24 K/uL (0.11-0.59); Monocytes % (auto) 6.8 %; Neutrophils # (auto) 2.53 K/uL (1.4-6.5); Neutrophils % (auto) 71.9 %; Platelet Count 109 K/uL (130-400); Platelet Estimate Decreased (Normal); RDW Coefficient of Variation 13.1 % (11.5-14.5); RDW Standard Deviation 44.8 fL (36.4-46.3); Red Blood Count 3.86 M/uL (4.7-6.1); White Blood Count 3.52 K/uL (4.8-10.8)
--- NOTE | 2020-03-13 18:12 | Electrocardiogram Report ---
Test Reason : Blood Pressure : / mmHG Vent. Rate : 079 BPM Atrial Rate : 079 BPM P-R Int : 176 ms QRS Dur : 188 ms QT Int : 484 ms P-R-T Axes : 000 191 079 degrees QTc Int : 554 ms AV dual-paced rhythm Abnormal ECG When compared with ECG of 25-SEP-2018 06:45, Vent. rate has increased BY 18 BPM Confirmed by Mando Valerio ([id number]) on 03/13/2020 6:12:07 PM Referred By: Will Ritchie Confirmed By:Chaparro Valerio
[2020-03-13 20:38] LABS: Eosinophils # (auto) 0.07 K/uL (0-0.5); Eosinophils % (auto) 1.6 %; Hematocrit (blood only) 38.1 % (42-52); Hemoglobin 12.2 g/dL (14.0-18.0); Lymphocytes % (auto) 20.5 %; Mean Corpuscular Hemoglobin 29.8 pg (25-34); Mean Corpuscular Volume 93.2 fL (80-100); Mean Platelet Volume 11.3 fL (7.4-10.4); Monocytes # (auto) 0.37 K/uL (0.11-0.59); Monocytes % (auto) 8.4 %; Neutrophils # (auto) 3.04 K/uL (1.4-6.5); Neutrophils % (auto) 69.5 %; Platelet Count 112 K/uL (130-400); RDW Standard Deviation 44.6 fL (36.4-46.3); Red Blood Count 4.09 M/uL (4.7-6.1); White Blood Count 4.38 K/uL (4.8-10.8)
[2020-03-13 20:56] LABS: BUN Creatinine Ratio 22.5 (10-20); Calcium 8.3 mg/dl (8.5-10.1); Creatinine Clr Calc Pharmacy 30.2 ml/min; Est GFR (African American) 28.9; Est GFR (Non-African American) 24.9; Potassium 5.7 mmol/L (3.5-5.1)
[2020-03-13] MEDS: LORazepam 0.5 MG TAB PO PRN (21:41)
[2020-03-14] MEDS: ZOLPIDEM TARTRATE 10 MG TAB PO PRN ×2 (01:00→22:17)
[2020-03-14 01:23] LABS: Hematocrit (blood only) 38.3 % (42-52); Hemoglobin 12.5 g/dL (14.0-18.0); Mean Corpuscular Hemoglobin 30.1 pg (25-34); Mean Corpuscular Hgb Conc 32.6 g/dL (32-36); Mean Corpuscular Volume 92.3 fL (80-100); Mean Platelet Volume 11.7 fL (7.4-10.4); Platelet Count 124 K/uL (130-400); RDW Standard Deviation 43.7 fL (36.4-46.3); Red Blood Count 4.15 M/uL (4.7-6.1); White Blood Count 6.01 K/uL (4.8-10.8)
[2020-03-14 01:24] LABS: Basophils # (auto) 0.02 K/uL (0-0.2); Basophils % (auto) 0.3 %; Eosinophils # (auto) 0.08 K/uL (0-0.5); Eosinophils % (auto) 1.3 %; Immature Granulocytes # (auto) 0.01 K/uL (0.00-0.02); Immature Granulocytes % (auto) 0.2 %; Lymphocytes # (auto) 0.91 K/uL (1.2-3.4); Lymphocytes % (auto) 15.1 %; Monocytes # (auto) 0.41 K/uL (0.11-0.59); Monocytes % (auto) 6.8 %; Neutrophils # (auto) 4.58 K/uL (1.4-6.5); Neutrophils % (auto) 76.3 %; RBC Morphology Unremarkable
[2020-03-14 06:48] LABS: Basophils # (auto) 0.01 K/uL (0-0.2); Basophils % (auto) 0.2 %; Eosinophils # (auto) 0.08 K/uL (0-0.5); Eosinophils % (auto) 1.7 %; Hematocrit (blood only) 38.6 % (42-52); Hemoglobin 12.6 g/dL (14.0-18.0); Lymphocytes # (auto) 1.33 K/uL (1.2-3.4); Lymphocytes % (auto) 28.4 %; Mean Corpuscular Hemoglobin 30.4 pg (25-34); Mean Corpuscular Hgb Conc 32.6 g/dL (32-36); Mean Platelet Volume 11.5 fL (7.4-10.4); Monocytes # (auto) 0.32 K/uL (0.11-0.59); Monocytes % (auto) 6.8 %; Neutrophils # (auto) 2.95 K/uL (1.4-6.5); Neutrophils % (auto) 62.9 %; Platelet Count 126 K/uL (130-400); RDW Standard Deviation 44.4 fL (36.4-46.3); Red Blood Count 4.15 M/uL (4.7-6.1); White Blood Count 4.69 K/uL (4.8-10.8)
[2020-03-14 07:21] LABS: C Reactive Protein 0.35 mg/dl (0-0.29); Calcium 8.5 mg/dl (8.5-10.1); Est GFR (African American) 31.8; Est GFR (Non-African American) 27.4; Potassium 4.9 mmol/L (3.5-5.1)
[2020-03-14] MEDS: CITALOPRAM 20 MG TAB PO SCH (09:22)
[2020-03-14] MEDS: PANTOprazole 40 MG in SYRINGE 0 ML IV SCH ×2 (09:22→22:17)
[2020-03-14] MEDS: METOPROLOL SUCC 50MG EXT REL TAB PO SCH (09:25)
--- NOTE | 2020-03-14 10:19 | Hospitalist Progress Note ---
Date of Service March 14, 2020 Assessment & Plan (1) Acute renal failure (ARF): Ninfa is a 69-year-old male with a past medical history of coronary artery disease status post CABG, history of a-flutter with dual paced pacer ICD, ischemic cardiomyopathy, hypertension, RHIANNA, and GERD who presents on referral from his outpatient provider for acute renal failure with hyperkalemia with melena X1 month. Acute renal failure suspect 2/2 prerenal depletion 2/2 GI bleeding/diarrhea and diuretic use vs. postrenal obstruction -admission BUN/Cr of 96/4.64, down to 74/3.10 with 2.5L in small fluid boluses - BUN/Cr. 56/2.5 this morning Patient with 1 month of diarrhea and melena with progressive lightheadedness, has continued to use Bumex twice a day with moderate urine output following doses Aggressive fluid therapy balance against CAD and cardiomyopathy with EF approximately 30% FE urea appropriately elevated at 417 Bladder/renal ultrasound: normal kidneys without hydronephrosis, prostatomegaly with chronic bladder outlet obstruction Urinary retention likely acute on chronic - post void overnight 550 mL, straight cath - recheck in the afternoon 43 mL, will continue Hyperkalemia 6.1 on admission, EKG with dual paced rhythm without peaked T waves Received calcium gluconate 1 g, insulin 10 units IV, 1 amp dextrose on admission 5.7 this AM, continuing to carefully bolus and watch BMPs daily -case discussed with nephrology on admission, appreciate continuing recommendations -follow BMP GI bleeding on anticoagulation, no history of peptic ulcer disease Patient anticoagulated on warfarin INR 2.7 on admission - nl. EGD on 03/13 Last colonoscopy 10 years ago, no history of abnormal colonoscopy and no family history of colorectal cancer or bleeding Melena x1 month, positive fecal occult blood at outpatient's office day of admission Hemoglobin 12.5, baseline 14 Trend CBC Hold warfarin -follow INR, consider reversal prior to a colonoscopy No NSAIDs Hold aspirin Protonix 40 mg IV twice daily GI consulted CAD with history of CABG, ICD with dual paced rhythm Aspirin held for acute bleeding Continue atorvastatin 20 mg daily Bumetanide held for ARF Continue metoprolol 50 mg succinate daily in the morning if blood pressure improved, held for now Hold sotalol 80 mg in the setting of hypotension Anxiety Continue citalopram 20 mg daily GERD PPI as above A flutter Paced ICD/defibrillator present Hold anticoagulation for GI bleed above Beta-shaun as above RHIANNA Continue CPAP nightly Patient reports faithful compliance at home, with good benefit DVT prophylaxis: SCDs, pharmacal prophylaxis contraindicated in the setting of bleed Diet: Low potassium Disposition: PCU CODE STATUS: Full code Admission and Anticipated Discharge Date Admission Date: March 12, 2020 Supervising Physician Co-Signing Physician Notes I saw the patient independent of the the resident physician and confirmed carrillo portions of the history and physical examination. I discussed the case with the resident physician and agree with the impression and plan as noted in the resident documentation. I also discussed the case with nephrology. He has no complaints this morning. Overnight he had a bladder scan of over 600 cc and subsequently was straight cathed. Since that time he has urinated but he estimates less than 50 cc per urination. He really has no complaints. He has no dizziness; he has ambulated twice around the unit without dizziness. Exam Blood pressure now 95/62, heart rate 61, respiratory rate 16. Temperature 36.5 C with pulse oximetry reading of 99% on room air Heart regular rate. Lungs clear. Data Hemoglobin 12.6, platelet 126 ESR 16 BUN 51, creatinine 2.31 IMPRESSION GI bleed EGD unremarkable Hold warfarin and check daily INR Colonoscopy tentatively planned for Monday Continue Protonix drip Acute renal failure Hyperkalemia BPH with bladder outlet obstruction Hold IV fluids and encourage hydration Daily BMP Recheck postvoid residual and consider Mccrary catheter No blood pressure room to allow alpha-shaun He may need to be discharged with Mccrary catheter and outpatient urology follow-up Chronic anticoagulation Hold warfarin No indication to reverse at this point. Ischemic cardiomyopathy Monitor with respect to IVF Hold parameter for beta shaun with respect to BP Subjective Nnifa Ruggiero was doing okay this morning. He had some abdominal pain overnight, and on bladder scan was found to have 550ml PVR. He was straight cathed and there was resolution of the discomfort. He was doing well now, but had not urinated significantly since the night prior. Later in the day he was able to urinate with a PVR of 43. He brought up that he felt dry and did not feel like he was fluid overloaded but did bring up that he normally takes Bumex. Review of Systems Review of Systems: Constitutional: Denies fevers, chills Cardiac: denies chest pain, palpitations, pre-syncope Pulm: denies cough, shortness of breath Abd.: denies nausea, vomiting, constipation, no bloody stool, diarrhea, no BM since admission Physical Exam 2 Constitutional: WD/WN, vitals as above Eyes: PERRL, conjunctivae normal, anicteric sclerae ENMT: external ear and nose normal, oropharynx normal Neck: normal visual inspection Respiratory: normal respiratory effort; no respiratory distress and no cough Auscultation: lungs clear to auscultation bilaterally Cardiovascular: RRR, no murmur, no edema Extremities: no edema (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, right leg no significant edema) Gastrointestinal (Abdomen): normal bowel sounds, soft, nontender, no hepatosplenomegaly Skin: appears dry Psychiatric: A+Ox3, euthymic affect Results & Data Results & Data ([facility]) Vital Signs (Past 12 Hours) Vital Signs Temp Pulse Pulse Resp BP BP Pulse Ox 03/14/20 08:09 36.6 C 96 H 18 90/51 L 99 03/14/20 03:24 86/43 L 03/14/20 03:14 36.4 C L 60 18 95 03/14/20 01:21 74 03/13/20 23:48 36.8 C 64 18 110/63 93 CBC Results Results Complete Blood Count Results: RBC 4.15 M/uL (4.7-6.1) L 03/14/20 WBC 4.69 K/uL (4.8-10.8) L 03/14/20 Hgb 12.6 g/dL (14.0-18.0) L 03/14/20 Hct 38.6 % (42-52) L 03/14/20 Plt Count 126 K/uL (130-400) L 03/14/20 Chemistry (BMP) Results BMP Results: Sodium 142 mmol/L (136-145) 03/14/20 Potassium 4.9 mmol/L (3.5-5.1) 03/14/20 Chloride 112 mmol/L (98-107) H 03/14/20 BUN 51 mg/dl (7-18) H 03/14/20 Creatinine 2.31 mg/dl (0.6-1.4) H 03/14/20 Glucose 82 mg/dl (70-99) 03/14/20 Resident Activity Tracking Resident Involvement: Resident Care Provided Care Provided: Adult Hospital Medicine (1) Acute renal failure (ARF) Acute renal failure type: unspecified Qualified Code(s): N17.9 - Acute kidney failure, unspecified
[2020-03-14] MEDS: GABAPENTIN 600 MG TAB PO SCH (10:59)
--- NOTE | 2020-03-14 11:18 | Nephrology Progress Note ---
Date of Service March 14, 2020 Assessment & Plan (1) Acute renal failure (ARF): * EVIE due to dehydration and acute blood loss anemia * Now in recovery phase. Cr 2.3 today (baseline ~ 1.0), nonoliguric. Urine sediment is acellular. Renal US was negative for obstruction. Electrolyte balance is acceptable * Hold IVF. Encourage oral hydration * Continue to hold Bumex & Valsartan (Entresto) * Monitor PRP (2) Urinary hesitancy: * Renal US does show enlarged heterogeneous prostate and bladder wall thickening c/w chronic outlet obstruction * If PVR remains elevated recommend insertion of Mccrary catheter and consultation w/ Urology * Relative hypotension precludes alpha shaun therapy at this time (3) Anticoagulant long-term use: * Held due to GIB (4) Ischemic cardiomyopathy: * Volume status acceptable at this time. Diuretics held. Will continue to closely monitor (5) GI bleed: * EGD negative for acute bleed * Colonoscopy possibly Monday Admission and Anticipated Discharge Date Admission Date: March 12, 2020 Subjective Mr. Ruggiero was seen & examined in his hospital room this morning. He reports that his diarrhea has improved. He is tolerating his diet and trying to remain well hydrated. He tolerated 1 L Normosol IV yesterday without dyspnea or LE swelling. His primary concern is difficulty voiding. PVR this am revealed ~ 500 cc requiring bladder straight catheterization Review of Systems Constitutional: no fever Eyes: no problem reported Ear, Nose, Mouth, Throat: no problem reported Respiratory: no dyspnea Cardiovascular: no chest pain and no palpitations Gastrointestinal: + diarrhea/loose stools; no abdominal pain and no nausea Genitourinary: + urinary hesitancy Musculoskeletal: no back pain Neurologic: no dizziness and no confusion Physical Exam Constitutional: not in distress Eyes: PERRL, conjunctivae normal, anicteric sclerae ENMT: external ear and nose normal, oropharynx normal Neck: trachea midline, no thyromegaly Respiratory: normal respiratory effort, lungs clear to auscultation Cardiovascular: RRR, no murmur, no edema Gastrointestinal (Abdomen): normal bowel sounds, soft, nontender, no hepatosplenomegaly Musculoskeletal: L BKA Skin: no rashes, warm and dry Neurologic: awake; not confused Results & Data ([facility]) Vital Signs (Past 12 Hours) Vital Signs Temp Pulse Pulse Resp BP BP Pulse Ox 03/14/20 08:09 36.6 C 96 H 18 90/51 L 99 03/14/20 03:24 86/43 L 03/14/20 03:14 36.4 C L 60 18 95 03/14/20 01:21 74 03/13/20 23:48 36.8 C 64 18 110/63 93 Laboratory Results Laboratory Tests 03/12/20 03/14/20 03/14/20 19:50 06:33 06:33 WBC 4.69 L Hgb 12.6 L Hct 38.6 L Plt Count 126 L Sodium 142 Potassium 4.9 Chloride 112 H Carbon Dioxide 28 BUN 51 H Creatinine 2.31 H Glucose 82 Urine Color Yellow Urine Appearance Clear Urine pH 5.0 Ur Specific [place] 1.013 Urine Protein Negative Urine Blood Trace H Urine Nitrite Negative Urine WBC (Auto) 1-5 Urine RBC (Auto) 0-4 PG Care Time/CCT Total # of Minutes Spent Total Time Spent with Patient: Total time spent is greater than 50% in coordination of care (as documented) at patient's floor/unit and/or counseling patient: Coding Level of Care Code 34308 Subseq Hosp Care Lvl 3 Diagnoses Acute renal failure (ARF) N17.9 Acute renal failure type: unspecified Urinary hesitancy R39.11 Anticoagulant long-term use Z79.01 Ischemic cardiomyopathy I25.5 GI bleed K92.2 (1) Acute renal failure (ARF) Acute renal failure type: unspecified Qualified Code(s): N17.9 - Acute kidney failure, unspecified
[2020-03-14] MEDS: LORazepam 0.5 MG TAB PO PRN (12:41)
--- NOTE | 2020-03-14 13:34 | Progress Notes ---
DATE: 03/13/2020 ADDENDUM Addendum to the GI consult on the patient by Janae Guaman. I examined and interviewed the patient, reviewed his chart and labs. The patient presents with melena over 5 days with heme positive stool while on aspirin and Coumadin for significant heart disease. The patient underwent an EGD today in the endoscopy unit, which was normal. There was no blood or source of bleeding found in the upper digestive tract. Plan is to prep him over the weekend and proceed with colonoscopy on Monday to evaluate further for source of blood loss.
[2020-03-14 15:18] LABS: INR 1.8 (0.9-1.1); Prothrombin Time 18.5 Seconds (9.0-12.0)
[2020-03-14] MEDS ORDERED: CALCIUM CARBONATE 500 MG CHEWABLE TAB PO PRN (20:39)
[2020-03-15 07:59] LABS: Hemoglobin 10.9 g/dL (14.0-18.0); Mean Corpuscular Hemoglobin 29.9 pg (25-34); Mean Corpuscular Hgb Conc 32.1 g/dL (32-36); Mean Corpuscular Volume 93.2 fL (80-100); RDW Standard Deviation 44.4 fL (36.4-46.3); Red Blood Count 3.65 M/uL (4.7-6.1); White Blood Count 4.11 K/uL (4.8-10.8)
[2020-03-15 08:06] LABS: INR 1.5 (0.9-1.1); Prothrombin Time 15.9 Seconds (9.0-12.0)
[2020-03-15 08:22] LABS: BUN Creatinine Ratio 22.2 (10-20); Calcium 8.2 mg/dl (8.5-10.1); Creatinine Clr Calc Pharmacy 43.7 ml/min; Est GFR (African American) 44.7; Est GFR (Non-African American) 38.6; Potassium 4.5 mmol/L (3.5-5.1)
[2020-03-15 08:26] LABS: Basophils # (auto) 0.01 K/uL (0-0.2); Basophils % (auto) 0.2 %; Eosinophils # (auto) 0.07 K/uL (0-0.5); Eosinophils % (auto) 1.7 %; Immature Granulocytes # (auto) 0.01 K/uL (0.00-0.02); Immature Granulocytes % (auto) 0.2 %; Lymphocytes # (auto) 0.88 K/uL (1.2-3.4); Lymphocytes % (auto) 21.4 %; Mean Platelet Volume 11.9 fL (7.4-10.4); Monocytes # (auto) 0.34 K/uL (0.11-0.59); Monocytes % (auto) 8.3 %; Neutrophils % (auto) 68.2 %; Platelet Count 98 K/uL (130-400); Platelet Estimate Decreased (Normal)
[2020-03-15] MEDS: GABAPENTIN 600 MG TAB PO SCH (08:41)
[2020-03-15] MEDS: CITALOPRAM 20 MG TAB PO SCH (08:42)
[2020-03-15] MEDS: PANTOprazole 40 MG in SYRINGE 0 ML IV SCH (08:42)
[2020-03-15] MEDS: METOPROLOL SUCC 50MG EXT REL TAB PO SCH (08:43)
--- NOTE | 2020-03-15 10:35 | Nephrology Progress Note ---
Date of Service March 15, 2020 Assessment & Plan (1) Acute renal failure (ARF): * EVIE due to dehydration and acute blood loss anemia * Now in recovery phase. Cr 1.7 today (baseline ~ 1.2), nonoliguric. Urine sediment is acellular. Renal US was negative for obstruction. Electrolyte balance is acceptable * Hold IVF. Encourage oral hydration * Continue to hold Bumex & Valsartan (Entresto) * Monitor PRP (2) Urinary hesitancy: * Renal US does show enlarged heterogeneous prostate and bladder wall thickening c/w chronic outlet obstruction * Relative hypotension precludes alpha shaun therapy at this time * Recommend outpatient follow up w/ Urology (3) Anticoagulant long-term use: * Held due to GIB (4) Ischemic cardiomyopathy: * Volume status acceptable at this time. Diuretics and ARB held. Will continue to monitor (5) GI bleed: * EGD negative for acute bleed * Colonoscopy possibly Monday Admission and Anticipated Discharge Date Admission Date: March 12, 2020 Subjective Mr. Ruggiero was seen & examined in his hospital room this morning. He reports that his diarrhea has improved. He is tolerating his diet and trying to remain well hydrated. He is now voiding without difficulty. Review of Systems Constitutional: no fever Eyes: no problem reported Ear, Nose, Mouth, Throat: no problem reported Respiratory: no dyspnea Cardiovascular: no chest pain and no edema Gastrointestinal: no abdominal pain and no nausea Musculoskeletal: no back pain Integumentary: no rash Neurologic: no confusion Physical Exam Constitutional: not in distress Eyes: PERRL, conjunctivae normal, anicteric sclerae ENMT: external ear and nose normal, oropharynx normal Neck: trachea midline, no thyromegaly Respiratory: normal respiratory effort, lungs clear to auscultation Cardiovascular: RRR, no murmur, no edema Gastrointestinal (Abdomen): normal bowel sounds, soft, nontender, no hepatosplenomegaly Skin: no rashes, warm and dry Neurologic: awake; not confused Results & Data ([facility] [place]) Vital Signs (Past 12 Hours) Vital Signs Temp Pulse Resp BP BP Pulse Ox 03/15/20 07:16 36.6 C 18 85/52 L 77/51 L 95 03/15/20 05:35 36.5 C 74 18 83/46 L 82/48 L 96 03/14/20 23:17 36.5 C 60 18 107/62 95 Laboratory Results Laboratory Tests 03/15/20 03/15/20 07:01 07:01 WBC 4.11 L Hgb 10.9 L Hct 34.0 L Plt Count 98 L Sodium 144 Potassium 4.5 Chloride 114 H Carbon Dioxide 25 BUN 39 H Creatinine 1.74 H D Glucose 76 PG Care Time/CCT Total # of Minutes Spent Total Time Spent with Patient: Total time spent is greater than 50% in coordination of care (as documented) at patient's floor/unit and/or counseling patient: Coding Level of Care Code 43847 Subseq Hosp Care Lvl 3 Diagnoses Acute renal failure (ARF) N17.9 Acute renal failure type: unspecified Urinary hesitancy R39.11 Anticoagulant long-term use Z79.01 Ischemic cardiomyopathy I25.5 GI bleed K92.2 (1) Acute renal failure (ARF) Acute renal failure type: unspecified Qualified Code(s): N17.9 - Acute kidney failure, unspecified
--- NOTE | 2020-03-15 10:58 | Hospitalist Progress Note ---
Date of Service March 15, 2020 Assessment & Plan Admission and Anticipated Discharge Date Admission Date: March 12, 2020 Ninfa is a 69-year-old male with a past medical history of coronary artery disease status post CABG, history of a-flutter with dual paced pacer ICD, ischemic cardiomyopathy, hypertension, RHIANNA, and GERD who presents on referral from his outpatient provider for acute renal failure with hyperkalemia with melena for one month. Acute renal failure suspect 2/2 prerenal depletion 2/2 GI bleeding/diarrhea and diuretic use vs. postrenal obstruction - admission BUN/Cr of 96/4.64, down to 74/3.10 with 2.5L in small fluid boluses - BUN/Cr. 39/1.74 this morning Patient with 1 month of diarrhea and melena with progressive lightheadedness, has continued to use Bumex twice a day with moderate urine output following doses Aggressive fluid therapy balance against CAD and cardiomyopathy with EF approximately 30% FE urea appropriately elevated at 417 Bladder/renal ultrasound: normal kidneys without hydronephrosis, prostatomegaly with chronic bladder outlet obstruction symptomatic low blood pressure, in the setting of diarrhea w/anticipated fluid losses due to prep for colonoscopy planned for tomorrow - given 500 ml bolus and 75 ml/hr NSS w/ end at 1 bag, appear to be responding - continue to evaluate and give small bolus if needed for pressure support Urinary retention likely acute on chronic - post void overnight 550 mL, straight cath - appears to be improved with PVR 0 today - continue to monitor Hyperkalemia 6.1 on admission, EKG with dual paced rhythm without peaked T waves Received calcium gluconate 1 g, insulin 10 units IV, 1 amp dextrose on admission 4.5 this AM, continuing to carefully bolus and watch BMPs daily -case discussed with nephrology on admission, appreciate continuing recommendations -follow BMP GI bleeding on anticoagulation, no history of peptic ulcer disease Patient anticoagulated on warfarin INR 2.7 on admission - nl. EGD on 03/13 Last colonoscopy 10 years ago, no history of abnormal colonoscopy and no family history of colorectal cancer or bleeding Melena x1 month, positive fecal occult blood at outpatient's office day of admission Hemoglobin 12.5, baseline 14 Trend CBC Hold warfarin -follow INR 1.5 this AM, consider reversal prior to a colonoscopy if elevated No NSAIDs Hold aspirin Protonix 40 mg IV twice daily GI consulted Thrombocytopenia in the setting of mild splenomegaly on renal ultrasound - plts 98 - peripheral smear ordered - continue to monitor w/ AM CBC CAD with history of CABG, ICD with dual paced rhythm Aspirin held for acute bleeding Continue Atorvastatin 20 mg daily Bumetanide held for ARF Continue Metoprolol succinate 50 mg daily in the morning if blood pressure improved, held for now Hold sotalol 80 mg in the setting of hypotension Anxiety Continue citalopram 20 mg daily GERD PPI as above A flutter Paced ICD/defibrillator present Hold anticoagulation for GI bleed above Beta-shaun as above RHIANNA Continue CPAP nightly Patient reports faithful compliance at home, with good benefit DVT prophylaxis: SCDs, pharmacal prophylaxis contraindicated in the setting of bleed Diet: Low potassium Disposition: PCU CODE STATUS: Full code Supervising Physician Co-Signing Physician Notes I saw the patient independent of the the resident physician and confirmed carrillo portions of the history and physical examination. I discussed the case with the resident physician and agree with the impression and plan as noted in the resident documentation. I also discussed the case with nephrology. He has no complaints this morning. His post void residuals have improved, less than 100 cc. He continues to walk around and near his room without any lightheadedness or dizziness. Exam Blood pressures in the 80s to 90s systolic Heart rate 60, respiratory rate 18, temperature 36.9 C, pulse oximetry 95% on room air. Heart regular rate. Lungs clear. Data Hemoglobin 10.9, platelet count 98 INR 1.5 BUN 39, creatinine 1.7 IMPRESSION GI bleed EGD unremarkable Hold warfarin and check daily INR Colonoscopy tentatively planned for Monday Change Protonix to PO Acute renal failure Hyperkalemia BPH with bladder outlet obstruction Holding IV fluids and encourage hydration May need a 500 cc bolus later today as he begins his colonoscopy prep; with his low normal systolic blood pressure there is not much room to spare in terms of volume status. Daily BMP No blood pressure room to allow alpha-shaun, although his postvoid residuals have improved. Chronic anticoagulation Holding warfarin No indication to reverse at this point. INR currently 1.5 in anticipation of colonoscopy tomorrow Ischemic cardiomyopathy Monitor with respect to IVF Hold parameter for beta shaun with respect to BP His Toprol is been held the last 2 days due to hold parameters Thrombocytopenia and mild splenomegaly Uncertain significance Will add peripheral smear to today's blood work Subjective Doing well today, he was feeling symptoms of dizziness and presyncope while walking this afternoon. His was here in the afternoon and was concerned that she was not able to understand me with my mask on and I brought out paper and addressed her using writing. I explained that the masks were for her safety, my safety, and other patients safety. Review of Systems Review of Systems: Constitutional: denies fever, chills Cardiac: denies chest pain, palpitations, admits presyncope denies syncope Pulm: denies cough, shortness of breath Abd.: denies abdominal pain Physical Exam Constitutional: WD/WN, vitals as above Eyes: PERRL, conjunctivae normal, anicteric sclerae ENMT: external ear and nose normal, oropharynx normal Neck: normal visual inspection Respiratory: normal respiratory effort; no respiratory distress and no cough Auscultation: lungs clear to auscultation bilaterally Cardiovascular: RRR, no murmur, no edema Extremities: no edema (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, right leg no significant edema) Gastrointestinal (Abdomen): normal bowel sounds, soft, nontender, no hepatosplenomegaly Skin: appears dry Psychiatric: A+Ox3, euthymic affect Results & Data Results & Data ([facility]) Vital Signs (Past 12 Hours) Vital Signs Temp Pulse Resp BP BP Pulse Ox 03/15/20 07:16 36.6 C 18 85/52 L 77/51 L 95 03/15/20 05:35 36.5 C 74 18 83/46 L 82/48 L 96 03/14/20 23:17 36.5 C 60 18 107/62 95 CBC Results Results Complete Blood Count Results: RBC 3.65 M/uL (4.7-6.1) L 03/15/20 WBC 4.11 K/uL (4.8-10.8) L 03/15/20 Hgb 10.9 g/dL (14.0-18.0) L 03/15/20 Hct 34.0 % (42-52) L 03/15/20 Plt Count 98 K/uL (130-400) L 03/15/20 Chemistry (BMP) Results BMP Results: Sodium 144 mmol/L (136-145) 03/15/20 Potassium 4.5 mmol/L (3.5-5.1) 03/15/20 Chloride 114 mmol/L (98-107) H 03/15/20 BUN 39 mg/dl (7-18) H 03/15/20 Creatinine 1.74 mg/dl (0.6-1.4) H 03/15/20 Glucose 76 mg/dl (70-99) 03/15/20 Resident Activity Tracking Resident Involvement: Resident Care Provided Care Provided: [facility] Medicine
[2020-03-15] MEDS ORDERED: SODIUM CHLORIDE 0.9% 1000ML 500 ML IV ONE (16:01)
[2020-03-15] MEDS ORDERED: SODIUM CHLORIDE 0.9% 500 ML IV SCH (16:15)
[2020-03-15] MEDS: LAVAGE SOLUTION 4000ML PO SCH (17:12)
[2020-03-15] MEDS: PANTOprazole 40 MG TAB PO SCH (21:11)
[2020-03-16] MEDS: LAVAGE SOLUTION 4000ML PO SCH (07:05)
--- NOTE | 2020-03-16 07:20 | Hospitalist Progress Note ---
Date of Service March 16, 2020 Assessment & Plan Admission and Anticipated Discharge Date Admission Date: March 12, 2020 Results & Data Results & Data ([facility]) Vital Signs (Past 12 Hours) Vital Signs Temp Pulse Pulse Resp BP Pulse Ox 03/16/20 07:03 37.4 C 80 18 110/64 95 03/16/20 05:05 37.1 C 78 19 119/70 95 03/15/20 23:46 36.8 C 67 18 103/65 97
[2020-03-16 08:05] LABS: Basophils # (auto) 0.01 K/uL (0-0.2); Basophils % (auto) 0.1 %; Eosinophils # (auto) 0.07 K/uL (0-0.5); Hematocrit (blood only) 36.1 % (42-52); Hemoglobin 11.6 g/dL (14.0-18.0); Immature Granulocytes # (auto) 0.02 K/uL (0.00-0.02); Immature Granulocytes % (auto) 0.3 %; Lymphocytes # (auto) 0.69 K/uL (1.2-3.4); Lymphocytes % (auto) 10.2 %; Mean Corpuscular Hemoglobin 30.1 pg (25-34); Mean Corpuscular Hgb Conc 32.1 g/dL (32-36); Mean Corpuscular Volume 93.5 fL (80-100); Mean Platelet Volume 11.3 fL (7.4-10.4); Monocytes # (auto) 0.42 K/uL (0.11-0.59); Monocytes % (auto) 6.2 %; Neutrophils # (auto) 5.56 K/uL (1.4-6.5); Neutrophils % (auto) 82.2 %; Platelet Count 106 K/uL (130-400); RDW Coefficient of Variation 13.1 % (11.5-14.5); RDW Standard Deviation 44.9 fL (36.4-46.3); Red Blood Count 3.86 M/uL (4.7-6.1); White Blood Count 6.77 K/uL (4.8-10.8)
[2020-03-16 08:13] LABS: INR 1.3 (0.9-1.1); Prothrombin Time 13.5 Seconds (9.0-12.0)
[2020-03-16] MEDS: GABAPENTIN 600 MG TAB PO SCH (08:26)
[2020-03-16] MEDS: CITALOPRAM 20 MG TAB PO SCH (08:26)
[2020-03-16] MEDS: PANTOprazole 40 MG TAB PO SCH (08:27)
[2020-03-16 08:38] LABS: BUN Creatinine Ratio 16.8 (10-20); Calcium 8.7 mg/dl (8.5-10.1); Creatinine Clr Calc Pharmacy 47.6 ml/min; Est GFR (African American) 49.5; Est GFR (Non-African American) 42.7; Potassium 4.3 mmol/L (3.5-5.1)
--- NOTE | 2020-03-16 09:53 | Nephrology Progress Note ---
Date of Service March 16, 2020 Assessment & Plan (1) Acute renal failure (ARF): * EVIE due to dehydration and acute blood loss anemia * Now in recovery phase. Cr 1.6 today (baseline ~ 1.2), nonoliguric. Urine sediment is acellular. Renal US was negative for obstruction. Electrolyte balance is acceptable * Resume oral hydration when patient returns from endoscopy * Continue to hold Bumex & Valsartan (Entresto) * Monitor PRP (2) Urinary hesitancy: * Renal US does show enlarged heterogeneous prostate and bladder wall thickening c/w chronic outlet obstruction * Relative hypotension precludes alpha shaun therapy at this time * Recommend outpatient follow up w/ Urology (3) Anticoagulant long-term use: * Held due to GIB (4) Ischemic cardiomyopathy: * Volume status acceptable at this time. Diuretics and ARB held. Will continue to monitor (5) GI bleed: * EGD negative for acute bleed * Colonoscopy today. Await results Admission and Anticipated Discharge Date Admission Date: March 12, 2020 Subjective Mr. Ruggiero was seen & examined in his hospital room this morning. He reports that he is voiding without difficulty. Mr. Ruggiero has completed his bowel prep overnight and is awaiting colonoscopy. He voices no new medical concerns. Review of Systems Constitutional: no fever Eyes: no problem reported Ear, Nose, Mouth, Throat: no problem reported Respiratory: no dyspnea Cardiovascular: no chest pain and no edema Gastrointestinal: no abdominal pain and no nausea Musculoskeletal: no back pain Integumentary: no rash Neurologic: no confusion Physical Exam Constitutional: not in distress Eyes: PERRL, conjunctivae normal, anicteric sclerae ENMT: external ear and nose normal, oropharynx normal Neck: trachea midline, no thyromegaly Respiratory: normal respiratory effort, lungs clear to auscultation Cardiovascular: RRR, no murmur, no edema Gastrointestinal (Abdomen): normal bowel sounds, soft, nontender, no hepatosplenomegaly Skin: no rashes, warm and dry Neurologic: awake; not confused Results & Data ([facility]) Vital Signs (Past 12 Hours) Vital Signs Temp Pulse Pulse Pulse Resp BP Pulse Ox 03/16/20 08:21 68 03/16/20 07:03 37.4 C 80 18 110/64 95 03/16/20 05:05 37.1 C 78 19 119/70 95 03/15/20 23:46 36.8 C 67 18 103/65 97 Laboratory Results Laboratory Tests 03/16/20 03/16/20 07:52 07:53 WBC 6.77 Hgb 11.6 L Hct 36.1 L Plt Count 106 L Sodium 142 Potassium 4.3 Chloride 113 H Carbon Dioxide 24 BUN 27 H Creatinine 1.60 H Glucose 93 PG Care Time/CCT Total # of Minutes Spent Total Time Spent with Patient: Total time spent is greater than 50% in co ordination of care (as documented) at patient's floor/unit and/or counseling patient: Coding Level of Care Code 21409 Subseq Hosp Care Lvl 3 Diagnoses Acute renal failure (ARF) N17.9 Acute renal failure type: unspecified Urinary hesitancy R39.11 Anticoagulant long-term use Z79.01 Ischemic cardiomyopathy I25.5 GI bleed K92.2 (1) Acute renal failure (ARF) Acute renal failure type: unspecified Qualified Code(s): N17.9 - Acute kidney failure, unspecified
--- NOTE | 2020-03-16 14:33 | History & Physical Report ---
Date of Service March 16, 2020 Assessment & Plan Admission and Anticipated Discharge Date Admission Date: March 12, 2020 History of Present Illness Chief Complaint: Melena, anemia Primary Care Provider: Will Ritchie MD For colonoscopy Allergies Allergy/AdvReac Type Severity Reaction Status Date / Time heparin Allergy Severe CAUSES HIT Verified 03/12/20 20:33 silver AdvReac Intermediate TOPICAL - Verified 03/12/20 20:33 BURNING, PAIN Home Medications Home Medications Medication Instructions Recorded Confirmed Type amoxicillin 500 mg capsule 2,000 mg PO ONCE PRN #30 cap 01/29/19 03/12/20 History aspirin 81 mg tablet,delayed 81 mg PO DAILY tab 01/29/19 03/12/20 History release atorvastatin 20 mg tablet 20 mg PO DAILY tab 01/29/19 03/12/20 History bumetanide 1 mg tablet 1 mg PO BID tab 01/29/19 03/12/20 History citalopram 20 mg tablet 20 mg PO DAILY tab 01/29/19 03/12/20 History gabapentin 600 mg tablet 600 mg PO BID tab 01/29/19 03/12/20 History lorazepam 0.5 mg tablet 0.5 mg PO Q6H PRN tab 01/29/19 03/12/20 History pantoprazole 40 mg tablet,delayed 40 mg PO DAILY #30 tab 01/29/19 03/12/20 History release potassium chloride 10 mEq 20 meq PO DAILY cap 01/29/19 03/12/20 History capsule,extended release warfarin 2 mg tablet 2 mg PO DAILY tab 01/29/19 03/12/20 History zolpidem 10 mg tablet 10 mg PO HS PRN tab 01/29/19 03/12/20 History nitroglycerin 400 mcg/spray 1 sprays SL Q5M PRN #4.9 gm 03/19/19 03/12/20 Rx translingual sotalol 80 mg tablet 80 mg PO BID #90 tab 03/19/19 03/12/20 History metoprolol succinate 50 mg 50 mg PO DAILY #90 tab 01/06/20 03/12/20 Rx tablet,extended release 24 hr sacubitril-valsartan [Entresto] 1 tab PO BID 03/12/20 03/12/20 History Past Med/Surg History Medical History (Updated 03/14/20 @ 11:16 by Geovanni Clifford MD) GERD (gastroesophageal reflux disease) Paroxysmal ventricular tachycardia (11/01/10) Social History Smoking Status: Former smoker Cigarettes Per Day: 20; Second Hand Exposure: No; Hx Alcohol Use: No Hx Substance Use: No Preferred Language: Armenian Communication Ability: Effective Individual Pension Consultant Required: No Beliefs That Will Affect Care: Quaker marital status: Current Living Situation: Spouse Other Information That Helps Us Care for You: No Feels Safe at Home: Yes Safety Concerns: Feels Safe At This Time Assistive Devices: Prosthesis Physical Exam Constitutional: well developed and well nourished Respiratory: normal respiratory effort Cardiovascular: Pacer/defibrillator Gastrointestinal (Abdomen): Percussion/Palpation: abdomen soft Results & Data ([facility]) Vital Signs (Past 12 Hours) Vital Signs Temp Pulse Pulse Resp BP Pulse Ox 03/16/20 11:09 37.0 C 69 18 102/64 96 03/16/20 08:21 68 03/16/20 07:03 37.4 C 80 18 110/64 95 03/16/20 05:05 37.1 C 78 19 119/70 95 Code Status & VTE Plan VTE Prophylaxis Plan VTE Prophylaxis will be ordered: Yes
[2020-03-16] MEDS ORDERED: SODIUM CHLORIDE 0.9% 1000ML 1,000 ML IV SCH (14:45)
[2020-03-16] MEDS ORDERED: PROPOFOL IV EMULSION 10 MG/ML 20 ML VIAL IV ONE (14:58)
[2020-03-16] MEDS ORDERED: LIDOCAINE HCL 2% 2 ML VIAL/AMP(20MG/ML) INFIL ONE (14:58)
--- NOTE | 2020-03-16 15:06 | Anesthesiology Consultation ---
Date of Service March 16, 2020 Assessment & Plan (1) Encounter for pre-operative examination: Chart Review Chart Review: Acceptable Risk for Surgery and Patient NOT seen in Pre Admission Testing Consults Requested none ASA ASA4 Proposed Anesthesia Anesthesia Type: MAC Risk / Benefits Reviewed With: PT / POA / Parent / Guardian, Accepts Plan and Informed Consent Obtained History Surgery Operation Date: 03/13/20 15:45 Proposed Procedures p Esophagogastroduodenoscopy Dr Kulwinder Miramontes Operation Date: 03/16/20 16:00 Proposed Procedures p Colonoscopy Dr Kulwinder Miramontes Height/Weight Height: 5 ft 9 in Weight: 92.8 kg Allergies Allergy/AdvReac Type Severity Reaction Status Date / Time heparin Allergy Severe CAUSES HIT Verified 03/12/20 20:33 silver AdvReac Intermediate TOPICAL - Verified 03/12/20 20:33 BURNING, PAIN Medications Home Medications Medication Instructions Recorded Confirmed Last Taken amoxicillin 500 mg capsule 2,000 mg PO ONCE PRN #30 cap 01/29/19 03/12/20 Unknown aspirin 81 mg tablet,delayed 81 mg PO DAILY tab 01/29/19 03/12/20 03/12/20 release atorvastatin 20 mg tablet 20 mg PO DAILY tab 01/29/19 03/12/20 03/12/20 bumetanide 1 mg tablet 1 mg PO BID tab 01/29/19 03/12/20 03/12/20 08:00 citalopram 20 mg tablet 20 mg PO DAILY tab 01/29/19 03/12/20 03/12/20 gabapentin 600 mg tablet 600 mg PO BID tab 01/29/19 03/12/20 03/12/20 08:00 lorazepam 0.5 mg tablet 0.5 mg PO Q6H PRN tab 01/29/19 03/12/20 Unknown pantoprazole 40 mg tablet,delayed 40 mg PO DAILY #30 tab 01/29/19 03/12/20 03/12/20 release potassium chloride 10 mEq 20 meq PO DAILY cap 01/29/19 03/12/20 03/12/20 capsule,extended release warfarin 2 mg tablet 2 mg PO DAILY tab 01/29/19 03/12/20 Unknown zolpidem 10 mg tablet 10 mg PO HS PRN tab 01/29/19 03/12/20 Unknown nitroglycerin 400 mcg/spray 1 sprays SL Q5M PRN #4.9 gm 03/19/19 03/12/20 Unknown translingual sotalol 80 mg tablet 80 mg PO BID #90 tab 03/19/19 03/12/20 03/12/20 08:00 metoprolol succinate 50 mg 50 mg PO DAILY #90 tab 01/06/20 03/12/20 03/12/20 tablet,extended release 24 hr sacubitril-valsartan [Entresto] 1 tab PO BID 03/12/20 03/12/20 03/12/20 08:00 Active Medications Generic Name Dose Route Start Last Admin Trade Name Freq PRN Reason Stop Dose Admin Calcium Carbonate 500 mg 03/14/20 20:39 03/14/20 22:17 Calcium Carbonate 500 Mg Chewable Tab PO 04/13/20 20:38 500 mg Q4 PRN Administration Indigestion Citalopram Hydrobromide 20 mg 03/13/20 09:00 03/16/20 08:26 Citalopram 20 Mg Tab PO 04/12/20 08:59 20 mg DAILY SKYLAR Administration Gabapentin 300 mg 03/13/20 09:00 03/16/20 08:26 Gabapentin 600 Mg Tab PO 04/12/20 08:59 300 mg DAILY SKYLAR Administration Lorazepam 0.5 mg 03/13/20 21:08 03/14/20 12:41 Lorazepam 0.5 Mg Tab PO 04/12/20 21:07 0.5 mg Q6H PRN Administration anxiety Metoprolol Succinate 50 mg 03/13/20 09:00 03/15/20 08:43 Metoprolol Succ 50mg Ext Rel Tab PO 04/12/20 08:59 Not Given DAILY SKYLAR Pantoprazole Sodium 40 mg 03/15/20 21:00 03/16/20 08:27 Pantoprazole 40 Mg Tab PO 04/14/20 20:59 40 mg BID SKYLAR Administration Zolpidem Tartrate 10 mg 03/14/20 00:06 03/14/20 22:17 Zolpidem Tartrate 10 Mg Tab PO 04/13/20 00:05 10 mg HS PRN Administration insomnia NPO Date Last Intake of Fluids: 03/16/20 Time Last Intake of Fluids: 09:00 Date Last Intake of Solids: 03/15/20 Time Last Intake of Solids: 12:00 Past Medical History Medical History (Updated 03/16/20 @ 15:06 by Pedro Baker MD) GERD (gastroesophageal reflux disease) Paroxysmal ventricular tachycardia (11/01/10) Exercise / Class Metabolic Activity II 4-5 Yardwork/Stairs/Walk up hill Past Anesthesia History No Hx of Anesthesia Complications and No Family Hx of Anesthesia Complications History of PONV No Hx of PONV and No Hx of Motion Sickness Social History Smoking Status: Former smoker Smoking cigarettes per day: 20 Hx Alcohol Use: No Hx Substance Use: No Physical Exam Vital Signs Last Vital Signs Temp 37.2 C 03/16/20 14:50 Pulse 81 03/16/20 14:50 Resp 18 03/16/20 14:50 BP 120/66 03/16/20 14:50 Pulse Ox 98 03/16/20 14:50 ENMT Mouth: no dentition abnormality Thyromental Distance: > or= 3.5 Finger Breadths Mallampati Class: II Neck normal visual inspection Respiratory normal respiratory effort Auscultation: lungs clear to auscultation bilaterally Cardiovascular Rate/Rhythm: regular rate and regular rhythm Psychiatric Orientation: alert Testing Laboratory Results 03/16/20 07:53 03/16/20 07:52 PT 13.5 Seconds (9.0-12.0) H 03/16/20 07:52 INR 1.3 (0.9-1.1) H 03/16/20 07:52 Urine Color Yellow 03/12/20 19:50 Urine Appearance Clear (Clear) 03/12/20 19:50 Urine pH 5.0 (4.5-7.5) 03/12/20 19:50 Ur Specific [place] 1.013 (1.000-1.030) 03/12/20 19:50 Urine Protein Negative (Negative) 03/12/20 19:50 Urine Glucose (UA) Negative (Negative) 03/12/20 19:50 Urine Ketones Negative (Negative) 03/12/20 19:50 Urine Nitrite Negative (Negative) 03/12/20 19:50 Ur Leukocyte Esterase Negative (Negative) 03/12/20 19:50 Urine WBC (Auto) 1-5 /hpf (0-5) 03/12/20 19:50 Urine RBC (Auto) 0-4 /hpf (0-4) 03/12/20 19:50 U Hyaline Cast (Auto) 0 /lpf (0-5) 03/12/20 19:50 U Epithel Cells (Auto) 0-5 /lpf (0-5) 03/12/20 19:50 Urine Bacteria (Auto) Negative (Negative) 03/12/20 19:50
--- NOTE | 2020-03-16 15:32 | GI REPORT ---
Patient Name: Ninfa Ruggiero Procedure Date: 03/16/2020 3:14 PM Date of : 1950 Admit Type: Inpatient Age: 69 Gender: Male Attending MD: Gaetano Miramontes MD Procedure: Colonoscopy Providers: Gaetano Miramontes MD Referring MD: Will Angulo Indications: Melena, Acute post hemorrhagic anemia Medicines: Propofol total dose 170 mg IV, Lidocaine 40 mg IV Complications: No immediate complications. Estimated Blood Loss: Estimated blood loss: none. Procedure: Pre-Anesthesia Assessment: - Prior to the procedure, a History and Physical was performed, and patient medications, allergies and sensitivities were reviewed. The patient's tolerance of previous anesthesia was reviewed. - The risks and benefits of the procedure and the sedation options and risks were discussed with the patient. All questions were answered and informed consent was obtained. After I obtained informed consent, the scope was passed under direct vision. Throughout the procedure, the patient's blood pressure, pulse, and oxygen saturations were monitored continuously. The Colonoscope was introduced through the anus and advanced to the cecum, identified by appendiceal orifice and ileocecal valve. The colonoscopy was performed without difficulty. The patient tolerated the procedure well. The quality of the bowel preparation was good. Findings: A few small-mouthed diverticula were found in the sigmoid colon. Impression: - Diverticulosis in the sigmoid colon. - No specimens collected. Recommendation: - Return patient to [facility] for [facility] care. - Cardiac diet today. Gaetano Miramontes M.D. Gaetano Miramontes MD 03/16/2020 3:31:48 PM This report has been signed electronically. Note Initiated On: 03/16/2020 3:14 PM Number of Addenda: 0 I attest to the content of the Intraoperative Record and orders documented therein, exceptions below {[id number]}
--- NOTE | 2020-03-16 15:58 | Progress Notes ---
DATE: 03/16/2020 The patient presented to the endoscopy unit for colonoscopy today for his rectal bleeding and anemia. He had a negative EGD last week. His prep was good and the exam was completed through to the cecum. He had a few sigmoid diverticula that were not inflamed or irritated. There was no blood anywhere in the colon. IMPRESSION: The source of the patient's melena and anemia are not detected endoscopically; because he has a pacemaker and defibrillator, he is not a candidate for an outpatient video capsule procedure. At this point, I would recommend advancing his diet and restarting his blood thinners. If he does have further bleeding, then he would need to have a bleeding scan and possible interventional radiology to localize and treat the bleeding source.
--- NOTE | 2020-03-16 16:18 | Anesthesiology Progress Note ---
Date of Service March 16, 2020 Anesthesia Post Procedure Vital Signs Vital Signs: Temp Pulse Pulse Pulse Resp BP Pulse Ox 03/16/20 16:02 69 18 104/61 97 03/16/20 15:49 72 18 93/58 L 96 03/16/20 15:33 69 18 89/54 L 96 03/16/20 14:50 37.2 C 81 18 120/66 98 03/16/20 14:20 75 03/16/20 11:09 37.0 C 69 18 102/64 96 03/16/20 08:21 68 03/16/20 07:03 37.4 C 80 18 110/64 95 03/16/20 05:05 37.1 C 78 19 119/70 95 03/15/20 23:46 36.8 C 67 18 103/65 97 03/15/20 19:06 37.1 C 67 18 115/69 98 Transfer of Care Handoff Completed per policy Notes Mental Status: alert / awake / arousable and participated in evaluation Patient Amnestic to Procedure: Yes Nausea / Vomiting: adequately controlled Pain: adequately controlled Airway Patency, RR, SpO2: stable & adequate BP & HR: stable & adequate Hydration State: stable & adequate Anesthetic Complications: no major complications apparent and Pt Satisfied with anesthetic care
[2020-03-16 16:22] VITALS: BP 109/63; TEMP 97.7; O2SAT 96
[2020-03-16 16:26] VITALS: PULSE 67
--- NOTE | 2020-03-16 16:42 | Discharge Summary ---
Date of Service March 16, 2020 Admission HPI Per Admitting Provider Ninfa is a 69-year-old male with a past medical history of coronary artery disease status post CABG, history of a flutter with dual paced pacer ICD, ischemic cardiomyopathy, hypertension, RHIANNA, and GERD who presents on referral from his outpatient provider for acute renal failure with hyperkalemia. Mr. Ruggiero reports his symptoms began about 1 month ago when he developed daily diarrhea. He reports that with onset of his diarrhea he was having black, sometimes coffee ground-like, bowel movements which frequently also had some dark-colored blood. He continued to have diarrhea over the course of a month and progressively felt more weak and tired. He was having black bowel movements up to 3 times per day, and had intermittent episodes of dizziness that slowly worsened. He saw his outpatient provider today after symptoms were not improving and continued to worsen who performed a Hemoccult test which was positive for stool blood. He also juni labs, when labs showed creatinine increase to 4.64 and hyperkalemia greater than 6 he was referred to the emergency department for further care. He reports that he has not had any chest pain, chest pressure, shortness of breath, fever, chills, cough, or difficulty breathing but that he has felt extremely tired and occasionally presyncopal. He has not had any change in urination, he reports that he continues to be several times twice daily after taking his Bumex which she is continued to take every day. He has sleep apnea for which she wears a CPAP, he wears this "faithfully "every day, and feels it works well for him. He has not had any swelling in his right leg. 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 He reports he last had a colonoscopy approximately 10 years ago which was normal, and he has not had an abnormal colonoscopy previously. He does not have a family history of GI bleeding or colorectal cancer. Medications: Reviewed. Last took morning day of admission. Medical history: Reviewed Surgical history: Reviewed allergies: Topical allergy to silver. 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 Social: Lives at home with his , independently ambulatory. Denies tobacco, alcohol, and recreational drug use. No recent sick contacts CODE STATUS: Full code Admission Exam Per Admitting Provider General: A&Ox3. NAD. Cooperative. Patient became lightheaded and dizzy/orthostatic upon sitting up in bed during exam. Improved with right leg raise. HEENT: Atraumatic, normocephalic. Mucous membranes tacky/dry. Pulm: CTAB A&P. -wheezes, -rales, -rhonchi. Symmetrical chest rise. No increase work of breathing. No respiratory distress. Cardiac: RRR, -mrg. Radial pulses intact and symmetrical. Abdominal: Nontender, nondistended, soft. BS present. CRANIAL NERVES: II: Pupils equal and reactive, no relative afferent pupillary defect, no VF cuts III, IV, : EOM intact, no gaze preference or deviation, no nystagmus. V: normal sensation in V1, V2, and V3 segments bilaterally VII: no asymmetry, no nasolabial fold flattening VIII: normal hearing to speech IX, X: normal palatal elevation, no uvular deviation XI: 5/5 head turn and 5/5 shoulder shrug bilaterally XII: midline tongue protrusion Extremity: No right lower extremity edema, PT pulse intact. RUE: 5/5 funds transfer clerk strength, finger flexion/extension, interosseus LUE: 5/5 funds transfer clerk strength, finger flexion/extension, interosseus RLE: 5/5 to hip flexion/extension, ankle dorsiflexion/plantarflexion LLE: Prosthesis present, status post amputation from surgical complications. Principal Diagnosis ARF Discharge Exam Constitutional well developed and well nourished; no acute distress and not ill appearing Eyes PERRL, conjunctivae normal, anicteric sclerae ENMT external ear and nose normal, oropharynx normal Neck trachea midline, no thyromegaly Respiratory normal respiratory effort, lungs clear to auscultation Cardiovascular Rate/Rhythm: regular rate and regular rhythm Heart Sounds: no murmur Chest (Breasts) Chest: + pacemaker Gastrointestinal (Abdomen) normal bowel sounds, soft, nontender, no hepatosplenomegaly Psychiatric A+Ox3, euthymic affect Discharge Data Allergies Allergy/AdvReac Type Severity Reaction Status Date / Time heparin Allergy Severe CAUSES HIT Verified 03/12/20 20:33 silver AdvReac Intermediate TOPICAL - Verified 03/12/20 20:33 BURNING, PAIN Consultations 03/12/20 20:49 ED Decision to Admit Stat 03/12/20 22:27 Consult Nephrology Routine 03/12/20 23:31 Consult Gastroenterology Routine Procedures Performed Operation Date: 03/13/20 15:45 Actual Procedures p Esophagogastroduodenoscopy - Gaetano Miramontes Operation Date: 03/16/20 16:00 <No data on this case meets the specified criteria> Ordered Studies 03/12/20 23:31 US renal/blad retro comp Urgent Hospital Course (1) Acute renal failure (ARF): Ninfa is a 69-year-old male with a past medical history of coronary artery disease status post CABG, history of a-flutter with dual paced pacer ICD, ischemic cardiomyopathy, hypertension, RHIANNA, and GERD who presents on referral from his outpatient provider for acute renal failure with hyperkalemia with melena X1 month. Acute renal failure suspect 2/2 prerenal depletion -admission BUN/Cr of 96/4.64, down to 74/3.10 with 2.5L in small fluid boluses - BUN/Cr. 27/1.6 this AM, grossly improved. - Held and recommend continuing to hold Bumex and Entresto until follow up with PCP. Aggressive fluid therapy balance against CAD and cardiomyopathy with EF approximately 30% FE urea appropriately elevated at 417 Bladder/renal ultrasound: normal kidneys without hydronephrosis, prostatomegaly with chronic bladder outlet obstruction -Follow up with PCP in 2 days time, likely to resume Bumex and Entresto at that time. -Recommend repeat BMP in 2 days. Hyperkalemia 6.1 on admission, EKG with dual paced rhythm without peaked T waves Received calcium gluconate 1 g, insulin 10 units IV, 1 amp dextrose on admission Improved to K 4.3 on day of discharge -Repeat BMP in 2 days. GI bleeding on anticoagulation, no history of peptic ulcer disease Patient anticoagulated on warfarin INR 2.7 on admission - nl. EGD on 03/13 Last colonoscopy 10 years ago, no history of abnormal colonoscopy and no family history of colorectal cancer or bleeding Melena x1 month, positive fecal occult blood at outpatient's office day of admission -Colonoscopy on 03/16 showing diverticula, but without obvious signs of active bleeding. -Bleeding may have been secondary to diverticula with wash out secondary -Held Aspirin and Warfarin, recommend continuing to hold until visit with PCP in 2 days time. -Continue PPI. CAD with history of CABG, ICD with dual paced rhythm Aspirin and Warfarin held for acute bleeding Continue atorvastatin 20 mg daily Bumetanide and Entresto held for ARF Continued metoprolol and sotalol Anxiety Continued citalopram 20 mg daily GERD Continue home PPI A flutter Paced ICD/defibrillator present Hold anticoagulation for GI bleed above Beta-shaun as above RHIANNA Continued CPAP nightly Patient reports faithful compliance at home, with good benefit Total Time Total Time Spent Total Time Spent (In Minutes): <30 Discharge Plan Discharge Items Patient Disposition: Home - Self-Care Reason For Visit: hyperkalemia, ARF Discharge Diagnosis: Acute Renal Failure with Hyperkalemia and Acute GI Bleed Activity: Per Instructions section Non-emergency contact: Primary Care Provider Call non-emergency contact if: you have any medication questions Follow-up/Referrals: Will Ritchie MD [Primary Care Provider] - Diet: Regular Addtl Attending Provider Instructions: Bahman, It was our pleasure caring for you at [facility] from 03/13 - 03/16/20 for your acute renal failure, hyperkalemia, and gastrointestinal bleeding. Please see below for a summary of your care. Acute Renal Failure -On your admission you were found to have lab values concerning for acute renal failure with a BUN of 96 and a Creatinine of 4.64. -Your kidney function seemed to improve fairly rapidly with the administration of IV fluids. -We also held your Bumex and Entresto as both work on the kidney and may have worsened your kidney function. -We recommend that you continue the hold your Bumex and Entresto until you see Dr. Ritchie in the next 2 days to allow your kidney more time to heal. -We also recommend that you have a repeat Basic Metabolic Panel (BMP) in the next 2 days as well to ensure your kidney function has improved. Hyperkalemia -Your potassium level was found to be elevated to 6.1 on admission. -In the ED you were given medications to help reduce your potassium including Calcium gluconate, Insulin, and Dextrose -Your potassium level was normal on your day of discharge at 4.3 -Would again recommend a repeat BMP in the next 2 days to check your levels. GI Bleed -You had noted Melena x1 month and a positive fecal occult blood test outpatient on your day of admission. -You had an EGD on 03/13 which was normal. -You had a Colonoscopy on 03/16 which showed a few small-mouthed diverticula in the sigmoid colon. -These diverticula may have been the initial source of your bleeding, but any remaining blood was washed out by your bowel prep. -Would recommend holding your Warfarin and Aspirin for 2 more days to allow for further healing. -Can resume Warfarin and Aspirin at that time and appointment with your PCP. Thrombocytopenia in the setting of mild splenomegaly on renal ultrasound - Your platelet count was on the lower side, 106 prior to your discharge. - A Peripheral smear ordered which showed normal red blood cells, no blasts or schistocytes, and decreased platelets. - Would recommend future follow up CBC for resolution. CAD with history of CABG, ICD with dual paced rhythm Continue Atorvastatin 20 mg daily -Continue to hold Aspirin and Wafarin for 2 more days, can resume after -Continue to hold Bumetanide and Entresto for 2 more days while kidneys improve, can resume after appointment with Dr. Ritchie. Continue home Metoprolol and Sotalol Anxiety Continue citalopram 20 mg daily GERD Continue home PPI Please follow up with Dr. Ritchie in the next 2 days. Pending Studies at Discharge: No Stand-Alone Forms: My [facility], Smoking Cessation Medications and DC Order Prescriptions: Continued metoprolol succinate 50 mg tablet extended release 24 hr 50 mg PO DAILY Qty: 90 RF: 3 aspirin 81 mg tablet,delayed release (DR/EC) 81 mg PO DAILY RF: 0 bumetanide 1 mg tablet 1 mg PO BID RF: 0 gabapentin 600 mg tablet 600 mg PO BID RF: 0 potassium chloride 10 mEq capsule, extended release 20 meq PO DAILY RF: 0 zolpidem 10 mg tablet 10 mg PO HS PRN (Reason: insomnia) RF: 0 atorvastatin 20 mg tablet 20 mg PO DAILY RF: 0 amoxicillin 500 mg capsule 2,000 mg PO ONCE PRN (Reason: DENTAL APPOINTMENTS) Qty: 30 RF: 0 citalopram 20 mg tablet 20 mg PO DAILY RF: 0 lorazepam 0.5 mg tablet 0.5 mg PO Q6H PRN (Reason: anxiety) RF: 0 pantoprazole 40 mg tablet,delayed release (DR/EC) 40 mg PO DAILY Qty: 30 RF: 0 warfarin 2 mg tablet 2 mg PO DAILY RF: 0 sotalol 80 mg tablet 80 mg PO BID Qty: 90 RF: 0 nitroglycerin [Nitrolingual] 400 mcg/spray spray,non-aerosol 1 sprays SL Q5M PRN (Reason: chest pain) Qty: 4.9 RF: 5 Entresto 97-103 mg tablet 1 tab PO BID RF: 0 Discharge Orders: Discharge Order (Routine); Ordered 03/16/20 Ordered By: Jonel Freire Admission Data Admit Date/Time: 03/12/20 21:55 Attending Provider: Naveed Starr Admit Provider: Roscoe Farias Primary Care Provider: Will Ritchie Other Providers: Mary Ellen Leger ; Yelena Hernandez ; Gaetano Miramontes ; Shanel Chen ; Sher Molina Other Interventions: Discharge Summary Assessment (RN) Last Done: 03/16/20 16:25 Supervising Physician Co-Signing Physician Notes I personally examined the patient and verified all carrillo points of history and exam, discussed case, and agree with decision making with Dr Freire. feeling good - by the time we see him he has only been back from [place] maybe 15- 20mins and he is already dressed and ready to go home! feeling good. answered all questions to the best of my ability and to his/'s satisfaction vitals noted nad heent nc at mmm breathing unlabored no accessory muscles good effort skin no rashes no pallor or icterus neuro no focal deficits. LLE prost hetic leg. ARF -improving. not quite at baseline - and this, coupled w BP - makes resumption of entresto and bumex not quite safe yet. BMP 03/18 then hopefully can resume by PCP guidance chronic systolic chf (hfref) - stable for now - discussed delicate balance between ARF and CHF - labs 03/18 and close PCP f/u - if Cr same/improved and BMP allows more [id number], then anticipate restarting first entresto, then probably a few days later (possibly with another repeat BMP) bumex. GI bleeding - scopes without active source - easily could have been diverticular that resolved (vs small bowel AVMs) - safe for home - given stroke risk - agree w resume coumadin and follow. PCP titrates dose - so next INR 03/18 when BMP checked stable for home, otherwise as above Resident Activity Tracking Resident Involvement: Resident Care Provided Care Provided: Adult [facility]
--- NOTE | 2020-03-16 17:44 | Billing Data ---
Date of Service March 16, 2020 Coding Level of Care Code D/C Day Management <30 mins
== END 2020-03-16 18:05 | disposition home or self-care (01) | DRG 378 ==
LOC: ED 18:57 → SUATTDRO 21:55 → 2S 21:55

== ENCOUNTER 2022-07-22 10:29 | Observation (INO) ==
[2022-07-22] MEDS ORDERED: SODIUM CHLORIDE 0.9% 1000ML 1,000 ML IV SCH (10:45)
--- NOTE | 2022-07-22 10:49 | Emergency Department Note ---
Impression & Plan Acute hypotension ADMIT ED Provider Note HPI: The patient is a 71-year-old gentleman with history of heart failure with reduced ejection fraction, ischemic cardiomyopathy, status post ICD, presents the emergency department with chief complaint of right foot swelling and discomfort for the past 3 days. Patient denies any trauma, does have a history of left-sided BKA. On arrival here to the ED the patient is alert, he is conversational, he appears to be in no acute distress although he is noted to have hypotension in the 70s systolic. Patient states he believes this is because his metoprolol was recently increased. He denies any recent fever/chills, denies any chest pain or shortness of breath. ROS: - Per HPI *Outpatient medications and allergy history reviewed. *Pertinent external medical records reviewed. PE: General: Alert HEENT: Normocephalic, trachea midline Eyes: Extraocular eye movement is intact, no scleral erythema Pulmonary: Clear to auscultation bilaterally, no wheezing Cardio: Regular rate and rhythm GI: Abdomen is soft to palpation : No suprapubic tenderness MSK: Status post left-sided BKA, there is some swelling and mild erythema over the dorsal aspect of the right foot, no traumatic abnormalities or overlying abrasions/ulcerations are noted, full range of motion distally in the right foot and with the digits of the right foot is appreciated, there is a palpable dorsalis pedis pulse in the right lower extremity Skin: No evidence of rash Neuro: Alert, no focal deficits Psychiatric: Cooperative campus monitor: (As interpreted by myself): - An order was placed for continuous cardiac monitoring - Patient was noted to be in paced rhythm with a rate of 62 EKG: (As interpreted by myself): Rate: 60 Rhythm: Paced rhythm Intervals: QRS 172 ms, QTc 532 ms, SC indeterminate ST changes: No ST elevation Time: 1052 Interventions provided in ED: -IV doxycycline, IV Solu-Medrol Differential Diagnosis: Sepsis, right lower extremity cellulitis/right foot cellulitis, inflammatory arthropathy/gout, necrotizing fasciitis, DVT, peripheral edema secondary to CHF exacerbation, amongst other potential pathologies. Medical Decision Making: Patient presented to the emergency department with some right foot pain. On arrival here to the ED he is noted to be hypotensive in the 70s systolic. He is otherwise in no acute distress, he is conversational, he is not tachycardic, he is afebrile on arrival. IV was established and lab work obtained, patient was given an IV fluid bolus. X-ray imaging of the right foot does not show any evidence of fracture or obvious osteomyelitis. There is dorsal swelling of the soft tissue of the right foot. Ultrasound imaging of the right lower extremity for DVT is negative for DVT. Patient's lab work otherwise is fairly reassuring, no leukocytosis, procalcitonin is low, lactic acid is within normal limits, low suspicion for systemic sepsis is the source of the patient's hypotension at this time. Patient's calcium level is low at 7.9, he was given IV repletion. Lab work otherwise shows baseline chronic kidney disease Unclear origin of the patient's right foot pain/swelling, it is localized to the dorsal aspect of the right foot. There is some overlying erythema therefore the patient was covered with IV doxycycline for possible mild cellulitis. He was also given a dose of IV Solu-Medrol however concern for possible inflammatory arthropathy such as gout. He remains hypotensive despite IV fluid bolus, on my reassessment his highest blood pressure yet has been 91/48. Despite this he remains in no acute distress and he is alert and oriented. I feel given his underlying comorbidities with CHF and reduced ejection fraction he would benefit from admission for further management of his hypotension until it is more stabilized. Patient is in agreement to this plan. Case was discussed with the on-call hospitalist for [facility], Dr. Farias, patient was admitted in stable condition for further care. Consultants: Hospitalist service, Dr. Farias Disposition discussion held by myself with: Patient Diagnosis: 1. Right foot pain, acute 2. Right foot cellulitis, acute, mild 3. Hypotension, nonspecific 4. Hypocalcemia, acute Disposition: Admission Advised outpatient follow up that was discussed with the patient: -Return to the ED immediately with any new or worsening symptoms -Follow up with a PCP in 2-3 Days Amilcar Lynn DO Emergency Medicine Past Med/Surg History Medical History (Updated 07/22/22 @ 16:51 by Amilcar Lynn DO) CKD (chronic kidney disease) stage 3, GFR 30-59 ml/min GERD (gastroesophageal reflux disease) HFrEF (heart failure with reduced ejection fraction) History of basal cell carcinoma Insomnia Paroxysmal ventricular tachycardia (11/01/10) Surgical History S/P below knee amputation L leg 2013 S/P quadruple vessel bypass 2009, in [place] Family History Denies family history of Ovarian cancer Prostate cancer Breast cancer Colorectal cancer Social History Smoking Status: Unknown if ever smoked Cigarettes Per Day: 20; Second Hand Exposure: No; Hx Alcohol Use: No Hx Substance Use: No Preferred Language: Greek Communication Ability: Effective Mill Roll Operator Required: No Beliefs That Will Affect Care: Gnosticist marital status: Current Living Situation: Spouse current occupational status: retired Feels Safe at Home: Yes caffeine: Yes Dental Care, Regularly: Yes Seatbelt Use: always Sunscreen Use: Yes Assistive Devices: Prosthesis Allergies Allergies Allergy/AdvReac Type Severity Reaction Status Date / Time heparin Allergy Severe CAUSES HIT Verified 07/22/22 15:16 silver AdvReac Intermediate TOPICAL - Verified 07/22/22 15:16 BURNING, PAIN Home Meds Home Medications Medication Instructions Recorded Confirmed citalopram 20 mg tablet 20 mg PO DAILY 05/23/22 07/22/22 sacubitril 49 mg-valsartan 51 mg 1 tab PO BID 05/23/22 07/22/22 tablet (Entresto) amoxicillin 500 mg capsule 2,000 mg PO DIRECTED PRN PRIOR 07/22/22 07/22/22 TO DENTAL APPT. gabapentin 600 mg tablet 600 mg PO BID 07/22/22 07/22/22 metoprolol succinate 50 mg 25 mg PO DAILY 07/22/22 07/22/22 tablet,extended release 24 hr nitroglycerin 0.4 mg sublingual 0.4 mg sublingual DIRECTED PRN 07/22/22 07/22/22 tablet Chest Pain Previous Rx's Medication Instructions Recorded sotalol 80 mg tablet 80 mg PO BID #180 tabs 09/27/21 lorazepam 0.5 mg tablet 0.5 mg PO DAILY PRN anxiety #30 12/07/21 tabs apixaban 5 mg tablet 5 mg PO BID #180 tabs 03/10/22 aspirin 81 mg tablet,delayed 81 mg PO DAILY #90 tabs 03/10/22 release atorvastatin 20 mg tablet 20 mg PO DAILY #90 tabs 03/10/22 bumetanide 1 mg tablet 1 mg PO DAILY #90 tabs 03/10/22 pantoprazole 40 mg tablet,delayed 40 mg PO DAILY #90 tabs 03/10/22 release potassium chloride 10 mEq 20 meq PO DAILY #90 caps 03/10/22 capsule,extended release zolpidem 10 mg tablet 5 - 10 mg PO HS PRN insomnia #30 06/13/22 tabs empagliflozin 10 mg tablet 10 mg PO DAILY #30 tabs 06/28/22 (Jardiance) Results & Data (ED) Vital Signs Vital Signs - 24 hr 07/22/22 10:49 07/22/22 10:41 07/22/22 10:41 Temperature 36.4 C L Temperature Source Oral Pulse Rate 60 60 Pulse Rate from SpO2 Sensor 67 Respiratory Rate 18 16 Respiratory Effort / Characteristics Non-Labored Spontaneous Respiratory Depth Normal Respiratory Pattern Regular Blood Pressure 78/46 L 79/47 L Blood Pressure Mean 56 57 Blood Pressure Position Sitting Pulse Oximetry 88 L 89 L Oxygen Delivery Method Room Air Room Air Oxygen Flow Rate Sepsis Recent Fever Within 48 Hours No Sepsis New/Unexplained Change in Mental Status N/A Sepsis Action Taken by Nursing No Action Required 07/22/22 10:43 07/22/22 10:47 07/22/22 10:51 Temperature Temperature Source Pulse Rate 61 60 Pulse Rate from SpO2 Sensor 64 61 60 Respiratory Rate 12 16 16 Respiratory Effort / Characteristics Respiratory Depth Respiratory Pattern Blood Pressure 77/47 L 77/45 L 82/41 L Blood Pressure Mean 57 55 54 Blood Pressure Position Pulse Oximetry 92 93 95 Oxygen Delivery Method Nasal Cannula Nasal Cannula Nasal Cannula Oxygen Flow Rate 2 2 2 Sepsis Recent Fever Within 48 Hours Sepsis New/Unexplained Change in Mental Status Sepsis Action Taken by Nursing 07/22/22 10:55 07/22/22 11:00 07/22/22 10:41 Temperature Temperature Source Pulse Rate 60 60 65 Pulse Rate from SpO2 Sensor 60 60 Respiratory Rate 16 14 16 Respiratory Effort / Characteristics Respiratory Depth Respiratory Pattern Blood Pressure 78/46 L 78/47 L Blood Pressure Mean 56 57 Blood Pressure Position Pulse Oximetry 94 94 92 Oxygen Delivery Method Nasal Cannula Nasal Cannula Nasal Cannula Oxygen Flow Rate 2 2 2 Sepsis Recent Fever Within 48 Hours Sepsis New/Unexplained Change in Mental Status Sepsis Action Taken by Nursing 07/22/22 11:05 07/22/22 11:10 07/22/22 11:11 Temperature Temperature Source Pulse Rate 60 60 60 Pulse Rate from SpO2 Sensor 60 60 60 Respiratory Rate 12 14 18 Respiratory Effort / Characteristics Respiratory Depth Respiratory Pattern Blood Pressure 85/45 L 78/50 L 81/42 L Blood Pressure Mean 58 59 55 Blood Pressure Position Pulse Oximetry 91 93 92 Oxygen Delivery Method Nasal Cannula Nasal Cannula Nasal Cannula Oxygen Flow Rate 2 2 2 Sepsis Recent Fever Within 48 Hours Sepsis New/Unexplained Change in Mental Status Sepsis Action Taken by Nursing 07/22/22 11:18 07/22/22 11:20 07/22/22 11:25 Temperature Temperature Source Pulse Rate 67 60 60 Pulse Rate from SpO2 Sensor 60 60 Respiratory Rate 16 16 18 Respiratory Effort / Characteristics Respiratory Depth Respiratory Pattern Blood Pressure 82/43 L 83/49 L 80/49 L Blood Pressure Mean 56 60 59 Blood Pressure Position Pulse Oximetry 93 94 93 Oxygen Delivery Method Nasal Cannula Nasal Cannula Nasal Cannula Oxygen Flow Rate 2 2 2 Sepsis Recent Fever Within 48 Hours Sepsis New/Unexplained Change in Mental Status Sepsis Action Taken by Nursing 07/22/22 11:30 07/22/22 11:35 07/22/22 11:41 Temperature Temperature Source Pulse Rate 60 60 Pulse Rate from SpO2 Sensor 60 60 Respiratory Rate 14 17 Respiratory Effort / Characteristics Respiratory Depth Respiratory Pattern Blood Pressure 83/47 L 80/45 L Blood Pressure Mean 59 56 52 Blood Pressure Position Pulse Oximetry 95 94 Oxygen Delivery Method Nasal Cannula Nasal Cannula Oxygen Flow Rate 2 2 Sepsis Recent Fever Within 48 Hours Sepsis New/Unexplained Change in Mental Status Sepsis Action Taken by Nursing 07/22/22 11:41 07/22/22 11:42 07/22/22 11:42 Temperature Temperature Source Pulse Rate 60 60 Pulse Rate from SpO2 Sensor 60 Respiratory Rate 12 15 Respiratory Effort / Characteristics Respiratory Depth Respiratory Pattern Blood Pressure 85/48 L Blood Pressure Mean 60 Blood Pressure Position Pulse Oximetry 95 Oxygen Delivery Method Oxygen Flow Rate Sepsis Recent Fever Within 48 Hours Sepsis New/Unexplained Change in Mental Status Sepsis Action Taken by Nursing 07/22/22 11:45 07/22/22 11:45 07/22/22 12:37 Temperature Temperature Source Pulse Rate 62 Pulse Rate from SpO2 Sensor 62 Respiratory Rate 15 Respiratory Effort / Characteristics Respiratory Depth Respiratory Pattern Blood Pressure 81/49 L 78/48 L Blood Pressure Mean 59 58 Blood Pressure Position Pulse Oximetry 94 Oxygen Delivery Method Oxygen Flow Rate Sepsis Recent Fever Within 48 Hours Sepsis New/Unexplained Change in Mental Status Sepsis Action Taken by Nursing 07/22/22 12:37 07/22/22 12:40 07/22/22 12:40 Temperature Temperature Source Pulse Rate 62 61 Pulse Rate from SpO2 Sensor 62 60 Respiratory Rate 19 13 Respiratory Effort / Characteristics Respiratory Depth Respiratory Pattern Blood Pressure 74/48 L Blood Pressure Mean 56 Blood Pressure Position Pulse Oximetry 94 94 Oxygen Delivery Method Oxygen Flow Rate Sepsis Recent Fever Within 48 Hours Sepsis New/Unexplained Change in Mental Status Sepsis Action Taken by Nursing 07/22/22 12:45 07/22/22 12:45 07/22/22 12:50 Temperature Temperature Source Pulse Rate 60 60 Pulse Rate from SpO2 Sensor 60 59 L Respiratory Rate 18 13 Respiratory Effort / Characteristics Respiratory Depth Respiratory Pattern Blood Pressure 69/49 L Blood Pressure Mean 55 Blood Pressure Position Pulse Oximetry 94 95 Oxygen Delivery Method Oxygen Flow Rate Sepsis Recent Fever Within 48 Hours Sepsis New/Unexplained Change in Mental Status Sepsis Action Taken by Nursing 07/22/22 12:50 07/22/22 12:55 07/22/22 12:55 Temperature Temperature Source Pulse Rate 60 Pulse Rate from SpO2 Sensor 61 Respiratory Rate 15 Respiratory Effort / Characteristics Respiratory Depth Respiratory Pattern Blood Pressure 82/50 L 67/49 L Blood Pressure Mean 60 55 Blood Pressure Position Pulse Oximetry 91 Oxygen Delivery Method Oxygen Flow Rate Sepsis Recent Fever Within 48 Hours Sepsis New/Unexplained Change in Mental Status Sepsis Action Taken by Nursing 07/22/22 13:00 07/22/22 13:00 07/22/22 13:05 Temperature Temperature Source Pulse Rate 60 60 Pulse Rate from SpO2 Sensor 60 61 Respiratory Rate 14 17 Respiratory Effort / Characteristics Respiratory Depth Respiratory Pattern Blood Pressure 84/54 L 83/45 L Blood Pressure Mean 64 57 Blood Pressure Position Pulse Oximetry 95 95 Oxygen Delivery Method Nasal Cannula Oxygen Flow Rate 2 Sepsis Recent Fever Within 48 Hours Sepsis New/Unexplained Change in Mental Status Sepsis Action Taken by Nursing 07/22/22 13:10 07/22/22 13:15 07/22/22 13:20 Temperature Temperature Source Pulse Rate 60 60 60 Pulse Rate from SpO2 Sensor 60 61 60 Respiratory Rate 15 16 18 Respiratory Effort / Characteristics Respiratory Depth Respiratory Pattern Blood Pressure 85/47 L 83/47 L 85/50 L Blood Pressure Mean 59 59 61 Blood Pressure Position Pulse Oximetry 92 93 90 Oxygen Delivery Method Nasal Cannula Nasal Cannula Nasal Cannula Oxygen Flow Rate 2 2 2 Sepsis Recent Fever Within 48 Hours Sepsis New/Unexplained Change in Mental Status Sepsis Action Taken by Nursing 07/22/22 13:25 07/22/22 13:29 07/22/22 13:30 Temperature Temperature Source Pulse Rate 60 60 60 Pulse Rate from SpO2 Sensor Respiratory Rate 22 12 17 Respiratory Effort / Characteristics Respiratory Depth Respiratory Pattern Blood Pressure 82/42 L 80/45 L 70/40 L Blood Pressure Mean 55 56 50 Blood Pressure Position Pulse Oximetry 92 93 93 Oxygen Delivery Method Nasal Cannula Nasal Cannula Nasal Cannula Oxygen Flow Rate 2 2 2 Sepsis Recent Fever Within 48 Hours Sepsis New/Unexplained Change in Mental Status Sepsis Action Taken by Nursing 07/22/22 13:31 07/22/22 13:32 07/22/22 13:35 Temperature Temperature Source Pulse Rate 60 60 60 Pulse Rate from SpO2 Sensor Respiratory Rate 16 12 16 Respiratory Effort / Characteristics Respiratory Depth Respiratory Pattern Blood Pressure 68/40 L 73/42 L 78/33 L Blood Pressure Mean 49 52 48 Blood Pressure Position Pulse Oximetry 92 92 93 Oxygen Delivery Method Nasal Cannula Nasal Cannula Nasal Cannula Oxygen Flow Rate 2 2 2 Sepsis Recent Fever Within 48 Hours Sepsis New/Unexplained Change in Mental Status Sepsis Action Taken by Nursing 07/22/22 13:38 07/22/22 13:45 07/22/22 13:50 Temperature Temperature Source Pulse Rate 60 60 60 Pulse Rate from SpO2 Sensor 60 60 Respiratory Rate 16 16 16 Respiratory Effort / Characteristics Respiratory Depth Respiratory Pattern Blood Pressure 77/39 L 80/43 L 68/50 L Blood Pressure Mean 51 55 56 Blood Pressure Position Pulse Oximetry 92 96 94 Oxygen Delivery Method Nasal Cannula Nasal Cannula Nasal Cannula Oxygen Flow Rate 2 2 2 Sepsis Recent Fever Within 48 Hours Sepsis New/Unexplained Change in Mental Status Sepsis Action Taken by Nursing 07/22/22 13:55 07/22/22 14:00 07/22/22 14:05 Temperature Temperature Source Pulse Rate 60 60 60 Pulse Rate from SpO2 Sensor 60 60 60 Respiratory Rate 16 18 14 Respiratory Effort / Characteristics Respiratory Depth Respiratory Pattern Blood Pressure 69/46 L 71/47 L 78/48 L Blood Pressure Mean 53 55 58 Blood Pressure Position Pulse Oximetry 94 96 96 Oxygen Delivery Method Nasal Cannula Nasal Cannula Nasal Cannula Oxygen Flow Rate 2 2 2 Sepsis Recent Fever Within 48 Hours Sepsis New/Unexplained Change in Mental Status Sepsis Action Taken by Nursing 07/22/22 14:10 07/22/22 14:15 07/22/22 14:15 Temperature Temperature Source Pulse Rate 60 60 Pulse Rate from SpO2 Sensor 60 60 Respiratory Rate 17 10 L Respiratory Effort / Characteristics Respiratory Depth Respiratory Pattern Blood Pressure 76/44 L 74/46 L Blood Pressure Mean 54 55 Blood Pressure Position Pulse Oximetry 98 95 Oxygen Delivery Method Nasal Cannula Oxygen Flow Rate 2 Sepsis Recent Fever Within 48 Hours Sepsis New/Unexplained Change in Mental Status Sepsis Action Taken by Nursing 07/22/22 14:20 07/22/22 14:20 07/22/22 14:25 Temperature Temperature Source Pulse Rate 60 61 Pulse Rate from SpO2 Sensor 60 61 Respiratory Rate 13 12 Respiratory Effort / Characteristics Respiratory Depth Respiratory Pattern Blood Pressure 76/46 L Blood Pressure Mean 56 Blood Pressure Position Pulse Oximetry 95 95 Oxygen Delivery Method Oxygen Flow Rate Sepsis Recent Fever Within 48 Hours Sepsis New/Unexplained Change in Mental Status Sepsis Action Taken by Nursing 07/22/22 14:25 07/22/22 14:30 07/22/22 14:30 Temperature Temperature Source Pulse Rate 61 Pulse Rate from SpO2 Sensor 61 Respiratory Rate 16 Respiratory Effort / Characteristics Respiratory Depth Respiratory Pattern Blood Pressure 68/48 L 75/54 L Blood Pressure Mean 54 61 Blood Pressure Position Pulse Oximetry 96 Oxygen Delivery Method Oxygen Flow Rate Sepsis Recent Fever Within 48 Hours Sepsis New/Unexplained Change in Mental Status Sepsis Action Taken by Nursing 07/22/22 14:35 07/22/22 14:35 07/22/22 14:40 Temperature Temperature Source Pulse Rate 60 60 Pulse Rate from SpO2 Sensor 60 60 Respiratory Rate 10 L 14 Respiratory Effort / Characteristics Respiratory Depth Respiratory Pattern Blood Pressure 76/47 L Blood Pressure Mean 56 Blood Pressure Position Pulse Oximetry 98 97 Oxygen Delivery Method Oxygen Flow Rate Sepsis Recent Fever Within 48 Hours Sepsis New/Unexplained Change in Mental Status Sepsis Action Taken by Nursing 07/22/22 14:40 07/22/22 14:45 07/22/22 14:45 Temperature Temperature Source Pulse Rate 60 Pulse Rate from SpO2 Sensor 60 Respiratory Rate 14 Respiratory Effort / Characteristics Respiratory Depth Respiratory Pattern Blood Pressure 80/52 L 83/49 L Blood Pressure Mean 61 60 Blood Pressure Position Pulse Oximetry 99 Oxygen Delivery Method Oxygen Flow Rate Sepsis Recent Fever Within 48 Hours Sepsis New/Unexplained Change in Mental Status Sepsis Action Taken by Nursing 07/22/22 14:50 07/22/22 14:50 07/22/22 14:55 Temperature Temperature Source Pulse Rate 62 Pulse Rate from SpO2 Sensor 62 Respiratory Rate 12 Respiratory Effort / Characteristics Respiratory Depth Respiratory Pattern Blood Pressure 91/48 L 78/53 L Blood Pressure Mean 62 61 Blood Pressure Position Pulse Oximetry 99 Oxygen Delivery Method Oxygen Flow Rate Sepsis Recent Fever Within 48 Hours Sepsis New/Unexplained Change in Mental Status Sepsis Action Taken by Nursing 07/22/22 14:55 07/22/22 15:00 07/22/22 15:00 Temperature Temperature Source Pulse Rate 60 60 Pulse Rate from SpO2 Sensor 60 60 Respiratory Rate 13 19 Respiratory Effort / Characteristics Respiratory Depth Respiratory Pattern Blood Pressure 90/52 L Blood Pressure Mean 64 Blood Pressure Position Pulse Oximetry 98 99 Oxygen Delivery Method Oxygen Flow Rate Sepsis Recent Fever Within 48 Hours Sepsis New/Unexplained Change in Mental Status Sepsis Action Taken by Nursing 07/22/22 15:05 07/22/22 15:05 07/22/22 15:10 Temperature Temperature Source Pulse Rate 60 Pulse Rate from SpO2 Sensor 60 Respiratory Rate 13 Respiratory Effort / Characteristics Respiratory Depth Respiratory Pattern Blood Pressure 79/54 L 87/53 L Blood Pressure Mean 62 64 Blood Pressure Position Pulse Oximetry 96 Oxygen Delivery Method Oxygen Flow Rate Sepsis Recent Fever Within 48 Hours Sepsis New/Unexplained Change in Mental Status Sepsis Action Taken by Nursing 07/22/22 15:10 07/22/22 15:11 07/22/22 15:15 Temperature Temperature Source Pulse Rate 69 69 Pulse Rate from SpO2 Sensor Respiratory Rate 18 Respiratory Effort / Characteristics Respiratory Depth Respiratory Pattern Blood Pressure 85/54 L Blood Pressure Mean 64 Blood Pressure Position Pulse Oximetry Oxygen Delivery Method Oxygen Flow Rate Sepsis Recent Fever Within 48 Hours Sepsis New/Unexplained Change in Mental Status Sepsis Action Taken by Nursing 07/22/22 15:20 07/22/22 15:25 07/22/22 15:25 Temperature Temperature Source Pulse Rate 68 Pulse Rate from SpO2 Sensor Respiratory Rate 12 Respiratory Effort / Characteristics Respiratory Depth Respiratory Pattern Blood Pressure 79/56 L 100/59 L Blood Pressure Mean 63 72 Blood Pressure Position Pulse Oximetry Oxygen Delivery Method Oxygen Flow Rate Sepsis Recent Fever Within 48 Hours Sepsis New/Unexplained Change in Mental Status Sepsis Action Taken by Nursing 07/22/22 15:36 07/22/22 15:40 07/22/22 15:40 Temperature Temperature Source Pulse Rate 86 67 Pulse Rate from SpO2 Sensor 67 Respiratory Rate 14 12 Respiratory Effort / Characteristics Respiratory Depth Respiratory Pattern Blood Pressure 86/51 L Blood Pressure Mean 62 Blood Pressure Position Pulse Oximetry 98 Oxygen Delivery Method Oxygen Flow Rate Sepsis Recent Fever Within 48 Hours Sepsis New/Unexplained Change in Mental Status Sepsis Action Taken by Nursing 07/22/22 15:45 07/22/22 15:45 07/22/22 15:50 Temperature Temperature Source Pulse Rate 61 Pulse Rate from SpO2 Sensor 61 Respiratory Rate 9 L Respiratory Effort / Characteristics Respiratory Depth Respiratory Pattern Blood Pressure 88/56 L 85/48 L Blood Pressure Mean 66 60 Blood Pressure Position Pulse Oximetry 97 Oxygen Delivery Method Oxygen Flow Rate Sepsis Recent Fever Within 48 Hours Sepsis New/Unexplained Change in Mental Status Sepsis Action Taken by Nursing 07/22/22 15:50 07/22/22 15:53 07/22/22 15:53 Temperature Temperature Source Pulse Rate 60 60 Pulse Rate from SpO2 Sensor 60 60 Respiratory Rate 12 17 Respiratory Effort / Characteristics Respiratory Depth Respiratory Pattern Blood Pressure 79/50 L Blood Pressure Mean 59 Blood Pressure Position Pulse Oximetry 97 98 Oxygen Delivery Method Oxygen Flow Rate Sepsis Recent Fever Within 48 Hours Sepsis New/Unexplained Change in Mental Status Sepsis Action Taken by Nursing 07/22/22 15:54 07/22/22 15:54 07/22/22 15:55 Temperature Temperature Source Pulse Rate 60 60 Pulse Rate from SpO2 Sensor 60 61 Respiratory Rate 14 13 Respiratory Effort / Characteristics Respiratory Depth Respiratory Pattern Blood Pressure 87/54 L Blood Pressure Mean 65 Blood Pressure Position Pulse Oximetry 98 95 Oxygen Delivery Method Oxygen Flow Rate Sepsis Recent Fever Within 48 Hours Sepsis New/Unexplained Change in Mental Status Sepsis Action Taken by Nursing 07/22/22 15:55 07/22/22 16:00 07/22/22 16:00 Temperature Temperature Source Pulse Rate 60 Pulse Rate from SpO2 Sensor 60 Respiratory Rate 14 Respiratory Effort / Characteristics Respiratory Depth Respiratory Pattern Blood Pressure 86/55 L 90/55 L Blood Pressure Mean 65 66 Blood Pressure Position Pulse Oximetry 97 Oxygen Delivery Method Oxygen Flow Rate Sepsis Recent Fever Within 48 Hours Sepsis New/Unexplained Change in Mental Status Sepsis Action Taken by Nursing 07/22/22 16:05 07/22/22 16:05 07/22/22 16:10 Temperature Temperature Source Pulse Rate 60 60 Pulse Rate from SpO2 Sensor 60 60 Respiratory Rate 11 L 14 Respiratory Effort / Characteristics Respiratory Depth Respiratory Pattern Blood Pressure 88/50 L Blood Pressure Mean 62 Blood Pressure Position Pulse Oximetry 95 100 Oxygen Delivery Method Oxygen Flow Rate Sepsis Recent Fever Within 48 Hours Sepsis New/Unexplained Change in Mental Status Sepsis Action Taken by Nursing 07/22/22 16:10 07/22/22 16:15 07/22/22 16:15 Temperature Temperature Source Pulse Rate 60 Pulse Rate from SpO2 Sensor Respiratory Rate 17 Respiratory Effort / Characteristics Respiratory Depth Respiratory Pattern Blood Pressure 81/50 L 85/51 L Blood Pressure Mean 60 62 Blood Pressure Position Pulse Oximetry Oxygen Delivery Method Oxygen Flow Rate Sepsis Recent Fever Within 48 Hours Sepsis New/Unexplained Change in Mental Status Sepsis Action Taken by Nursing 07/22/22 16:20 07/22/22 16:20 Temperature Temperature Source Pulse Rate 60 Pulse Rate from SpO2 Sensor Respiratory Rate 11 L Respiratory Effort / Characteristics Respiratory Depth Respiratory Pattern Blood Pressure 87/47 L Blood Pressure Mean 60 Blood Pressure Position Pulse Oximetry Oxygen Delivery Method Oxygen Flow Rate Sepsis Recent Fever Within 48 Hours Sepsis New/Unexplained Change in Mental Status Sepsis Action Taken by Nursing Laboratory Data 07/22/22 11:41 07/22/22 11:41 Lab Results 07/22/22 07/22/22 07/22/22 Range/Units 11:13 11:41 11:41 WBC 8.80 (4.8-10.8) K/ul RBC 4.05 L (4.70-6.10) M/uL Hgb 12.2 L (14.0-18.0) g/dl Hct 37.0 L (42.0-52.0) % MCV 91.4 (80.0-100.0) fL MCH 30.1 (25.0-34.0) pg MCHC 33.0 (32.0-36.0) g/dL RDW Std Deviation 44.6 (36.4-46.3) fL RDW Coeff of Faby 13.2 (11.5-14.5) % Plt Count 171 (130-400) K/uL MPV 10.6 (9.4-12.4) fL Immature Gran % (Auto) 0.3 % Neut % (Auto) 79.1 % Lymph % (Auto) 6.8 % [place] % (Auto) 12.7 % Eos % (Auto) 0.8 % Baso % (Auto) 0.3 % Neut # (Auto) 6.95 H (1.40-6.50) K/uL Lymph # (Auto) 0.60 L (1.2-3.4) K/uL [place] # (Auto) 1.12 H (0.11-0.59) K/uL Eos # (Auto) 0.07 (0-0.50) K/uL Baso # (Auto) 0.03 (0-0.2) K/uL Immature Gran # (Auto) 0.03 (0.01-0.20) K/uL Sodium 135 L (136-145) mmol/L Potassium 4.4 (3.5-5.1) mmol/L Chloride 104 (98-107) mmol/L Carbon Dioxide 23 (21-32) mmol/L Anion Gap 8 (3-11) BUN 35 H (6-23) mg/dl Creatinine 2.02 H D (0.6-1.4) mg/dl Est Cr Clr Drug Dosing Not Reportable Est GFR ( Amer) 36.8 ml/min Est GFR (Non-Af Amer) 31.8 ml/min BUN/Creatinine Ratio 17.3 (10-20) Glucose 106 H (70-99(Fasting)) mg/dl Lactate 0.9 (0.4-2.0) mmol/L Calcium 7.9 L (8.5-10.1) mg/dl Magnesium 2.1 (1.7-2.4) mg/dl Total Bilirubin 1.7 H (0.2-1.0) mg/dl Direct Bilirubin 0.2 (0-0.2) mg/dl AST 8 L (13-39) U/L ALT 5 L (7-52) U/L Alkaline Phosphatase 74 (34-104) U/L Troponin I High Sens 8.4 (0-20) pg/ml Total Protein 6.3 (6.0-8.3) gm/dl Albumin 3.6 (3.4-5.0) gm/dl Procalcitonin (0-0.5) ng/ml SARS-CoV-2 (PCR) (Negative) Influenza Type A (PCR) (Neg) Influenza Type B (PCR) (Neg) RSV (RT-PCR) (Neg) 07/22/22 07/22/22 Range/Units 11:41 14:11 WBC (4.8-10.8) K/ul RBC (4.70-6.10) M/uL Hgb (14.0-18.0) g/dl Hct (42.0-52.0) % MCV (80.0-100.0) fL MCH (25.0-34.0) pg MCHC (32.0-36.0) g/dL RDW Std Deviation (36.4-46.3) fL RDW Coeff of Faby (11.5-14.5) % Plt Count (130-400) K/uL MPV (9.4-12.4) fL Immature Gran % (Auto) % Neut % (Auto) % Lymph % (Auto) % [place] % (Auto) % Eos % (Auto) % Baso % (Auto) % Neut # (Auto) (1.40-6.50) K/uL Lymph # (Auto) (1.2-3.4) K/uL [place] # (Auto) (0.11-0.59) K/uL Eos # (Auto) (0-0.50) K/uL Baso # (Auto) (0-0.2) K/uL Immature Gran # (Auto) (0.01-0.20) K/uL Sodium (136-145) mmol/L Potassium (3.5-5.1) mmol/L Chloride (98-107) mmol/L Carbon Dioxide (21-32) mmol/L Anion Gap (3-11) BUN (6-23) mg/dl Creatinine (0.6-1.4) mg/dl Est Cr Clr Drug Dosing Est GFR ( Amer) ml/min Est GFR (Non-Af Amer) ml/min BUN/Creatinine Ratio (10-20) Glucose (70-99(Fasting)) mg/dl Lactate (0.4-2.0) mmol/L Calcium (8.5-10.1) mg/dl Magnesium (1.7-2.4) mg/dl Total Bilirubin (0.2-1.0) mg/dl Direct Bilirubin (0-0.2) mg/dl AST (13-39) U/L ALT (7-52) U/L Alkaline Phosphatase (34-104) U/L Troponin I High Sens (0-20) pg/ml Total Protein (6.0-8.3) gm/dl Albumin (3.4-5.0) gm/dl Procalcitonin 0.12 (0-0.5) ng/ml SARS-CoV-2 (PCR) NEGATIVE (Negative) Influenza Type A (PCR) Negative (Neg) Influenza Type B (PCR) Negative (Neg) RSV (RT-PCR) Negative (Neg) Administered Medications Doxycycline Hyclate 100 mg/ (Dextrose) 110 mls @ 50 mls/hr IV NOW STA Stop: 07/22/22 16:54 Last Admin: 07/22/22 15:21 Dose: 50 mls/hr Documented By: OZIEL Discontinued Medications Sodium Chloride (Nss 1000ml) 1,000 mls @ 999 mls/hr IV .Q1H1M SKYLAR Stop: 07/22/22 11:45 Last Infusion: 07/22/22 12:16 Dose: 0 mls/hr Documented By: Admin: 07/22/22 11:08 Dose: 999 mls/hr Documented By: VIRIDIANA Calcium Gluconate () 1,000 mg in 60 mls @ 240 mls/hr IV Q15M SKYLAR Stop: 07/22/22 13:59 Last Infusion: 07/22/22 15:05 Dose: 0 mls/hr Documented By: Admin: 07/22/22 14:40 Dose: 240 mls/hr Documented By: Infusion: 07/22/22 14:38 Dose: 0 mls/hr Documented By: Admin: 07/22/22 14:05 Dose: 240 mls/hr Documented By: VIRIDIANA Sodium Chloride (Nss) 500 mls @ 999 mls/hr IV .Q31M ONE Stop: 07/22/22 14:07 Last Infusion: 07/22/22 14:38 Dose: 0 mls/hr Documented By: Admin: 07/22/22 14:05 Dose: 999 mls/hr Documented By: VIRIDIANA Methylprednisolone (Methylprednisolone 125 Mg/2 Ml Vial) 125 mg IV NOW STA Stop: 07/22/22 14:44 Last Admin: 07/22/22 15:09 Dose: 125 mg Documented By: OZIEL Imaging Data Radiologist's Impression: Chest X-Ray 07/22/22 10:41 XR chest 1V portable HISTORY: Sepsis COMPARISON: Chest CT 03/30/2022. FINDINGS: No pneumothorax. No pleural effusions. The heart remains mildly enlarged. There is mild central pulmonary vascular congestion without overt edema. Bibasilar linear densities favor subsegmental atelectasis. Left-sided pacemaker/defibrillator. Poststernotomy changes again noted. IMPRESSION: No change in the cardiomegaly and mild congestive change. ACT 112: Negative or not required by law. Electronically signed by: Cosme Ordoñez M.D. 07/22/2022 12:07 PM Foot X-Ray 07/22/22 10:49 XR foot RT min 3V routine CLINICAL HISTORY: Atraumatic swelling/pain COMPARISON STUDY: None. FINDINGS: No acute fracture or dislocation within the right foot. Mild vascular calcifications are noted. Mild dorsal soft tissue swelling. There is a large plantar heel spur. The Lisfranc joint is intact. Mild degenerative changes within the foot. Well-corticated ossific density at the base of the second proximal phalanx likely represents an old fracture. IMPRESSION: 1. No acute fracture or dislocation within the right foot. 2. Mild dorsal soft tissue swelling. ACT 112: Negative or not required by law. Electronically signed by: Cosme Ordoñez M.D. 07/22/2022 12:02 PM Venous Doppler Study 07/22/22 10:49 US venous doppler LE RT HISTORY: 71 years-old Male swelling/pain eval for dvt acute pain and swelling of the right lower leg COMPARISON: None TECHNIQUE: Multiple real-time sonographic images of the right lower extremity deep venous structures were obtained assessing grayscale appearance, color and spectral flow. FINDINGS: Normal flow, compressibility, phasicity and augmentation. IMPRESSION: No sonographic evidence of deep venous thrombosis. ACT 112: Negative or not required by law. The above report was generated using voice recognition software. It may contain grammatical, syntax or spelling errors. Electronically signed by: Hilario Lee M.D. 07/22/2022 12:33 PM Discharge Plan Visit Data Chief Complaint: Leg Injury/Pain ED Provider: Amilcar Lynn Discharge Problem: Acute hypotension Forms Stand Alone Forms: [facility] [employer] Prescriptions Prescriptions: No Action sotalol 80 mg tablet 80 mg PO BID Qty: 180 3RF zolpidem 10 mg tablet 5 - 10 mg PO HS PRN (Reason: insomnia) Qty: 30 0RF lorazepam 0.5 mg tablet 0.5 mg PO DAILY PRN (Reason: anxiety) Qty: 30 0RF Entresto 49-51 mg tablet 1 tab PO BID citalopram 20 mg tablet 20 mg PO DAILY Jardiance 10 mg tablet 10 mg PO DAILY Qty: 30 2RF apixaban 5 mg tablet 5 mg PO BID Qty: 180 3RF aspirin 81 mg tablet,delayed release (DR/EC) 81 mg PO DAILY Qty: 90 3RF atorvastatin 20 mg tablet 20 mg PO DAILY Qty: 90 3RF bumetanide 1 mg tablet 1 mg PO DAILY Qty: 90 3RF pantoprazole 40 mg tablet,delayed release (DR/EC) 40 mg PO DAILY Qty: 90 3RF potassium chloride 10 mEq capsule, extended release 20 meq PO DAILY Qty: 90 3RF nitroglycerin 0.4 mg tablet, sublingual 0.4 mg sublingual DIRECTED PRN (Reason: Chest Pain) amoxicillin 500 mg capsule 2,000 mg PO DIRECTED PRN (Reason: PRIOR TO DENTAL APPT.) gabapentin 600 mg tablet 600 mg PO BID metoprolol succinate 50 mg tablet extended release 24 hr 25 mg PO DAILY Referrals Referrals: Linn Vazquez MD [Primary Care Provider] -
--- NOTE | 2022-07-22 12:04 | XRay Report ---
XR foot RT min 3V routine CLINICAL HISTORY: Atraumatic swelling/pain COMPARISON STUDY: None. FINDINGS: No acute fracture or dislocation within the right foot. Mild vascular calcifications are no abdiel. Mild dorsal soft tissue swelling. There is a large plantar heel spur. The Lisfranc joint is inta ct. Mild degenerative changes within the foot. Well-corticated ossific density at the base of the sec ond proximal phalanx likely represents an old fracture. IMPRESSION: 1. No acute fracture or dislocation within the right foot. 2. Mild dorsal soft tissue swelling. ACT 112: Negative or not required by law. Electronically signed by: Cosme Ordoñez M.D. 07/22/2022 12:02 PM
--- NOTE | 2022-07-22 12:08 | XRay Report ---
XR chest 1V portable HISTORY: Sepsis COMPARISON: Chest CT 03/30/2022. FINDINGS: No pneumothorax. No pleural effusions. The heart remains mildly enlarged. There is mild praveen tral pulmonary vascular congestion without overt edema. Bibasilar linear densities favor subsegmental atelectasis. Left-sided pacemaker/defibrillator. Poststernotomy changes again noted. IMPRESSION: No change in the cardiomegaly and mild congestive change. ACT 112: Negative or not required by law. Electronically signed by: Cosme Ordoñez M.D. 07/22/2022 12:07 PM
[2022-07-22 12:16] LABS: Basophils # (auto) 0.03 K/uL (0-0.2); Basophils % (auto) 0.3 %; Eosinophils # (auto) 0.07 K/uL (0-0.50); Eosinophils % (auto) 0.8 %; Hemoglobin 12.2 g/dl (14.0-18.0); Immature Granulocytes # (auto) 0.03 K/uL (0.01-0.20); Immature Granulocytes % (auto) 0.3 %; Lymphocytes % (auto) 6.8 %; Mean Corpuscular Hemoglobin 30.1 pg (25.0-34.0); Mean Corpuscular Volume 91.4 fL (80.0-100.0); Mean Platelet Volume 10.6 fL (9.4-12.4); Monocytes # (auto) 1.12 K/uL (0.11-0.59); Monocytes % (auto) 12.7 %; Neutrophils # (auto) 6.95 K/uL (1.40-6.50); Neutrophils % (auto) 79.1 %; Platelet Count 171 K/uL (130-400); RDW Coefficient of Variation 13.2 % (11.5-14.5); RDW Standard Deviation 44.6 fL (36.4-46.3); Red Blood Count 4.05 M/uL (4.70-6.10)
[2022-07-22 12:24] LABS: Alanine Aminotransferase 5 U/L (7-52); Albumin Level 3.6 gm/dl (3.4-5.0); Alkaline Phosphatase 74 U/L (34-104); Anion Gap 8 (3-11); Aspartate Aminotransferase 8 U/L (13-39); BUN Creatinine Ratio 17.3 (10-20); Bilirubin Direct 0.2 mg/dl (0-0.2); Bilirubin,Total 1.7 mg/dl (0.2-1.0); Blood Urea Nitrogen 35 mg/dl (6-23); Calcium 7.9 mg/dl (8.5-10.1); Carbon Dioxide 23 mmol/L (21-32); Chloride 104 mmol/L (98-107); Est GFR (African American) 36.8 ml/min; Est GFR (Non-African American) 31.8 ml/min; Glucose 106 mg/dl (70-99(Fasting)); Magnesium 2.1 mg/dl (1.7-2.4); Potassium 4.4 mmol/L (3.5-5.1); Sodium 135 mmol/L (136-145); Total Protein 6.3 gm/dl (6.0-8.3)
[2022-07-22 12:30] LABS: Troponin I High Sensitivity 8.4 pg/ml (0-20)
--- NOTE | 2022-07-22 12:34 | Ultrasound Report ---
US venous doppler LE RT HISTORY: 71 years-old Male swelling/pain eval for dvt acute pain and swelling of the right lower leg COMPARISON: None TECHNIQUE: Multiple real-time sonographic images of the right lower extremity deep venous structures were obtained assessing grayscale appearance, color and spectral flow. FINDINGS: Normal flow, compressibility, phasicity and augmentation. IMPRESSION: No sonographic evidence of deep venous thrombosis. ACT 112: Negative or not required by law. The above report was generated using voice recognition software. It may contain grammatical, syntax o r spelling errors. Electronically signed by: Hilario Lee M.D. 07/22/2022 12:33 PM
[2022-07-22] MEDS ORDERED: SODIUM CHLORIDE 0.9% 500 ML IV ONE (13:37)
[2022-07-22] MEDS: CALCIUM GLUCONATE 1,000 MG/60 ML BAG IV SCH ×2 (14:05→14:40)
[2022-07-22] MEDS ORDERED: methylPREDNISolone 125 MG/2 ML VIAL IV STA (14:43)
[2022-07-22] MEDS ORDERED: DOXYCYCLINE HYCLATE 100 MG in DEXTROSE 5% 100 ML IV STA (14:43)
[2022-07-22 15:09] LABS: Influenza A virus by PCR Negative (Neg); Influenza B virus by PCR Negative (Neg); RSV by PCR Negative (Neg); SARS CoV2 RNA(COVID-19) Ceph NEGATIVE (Negative)
--- NOTE | 2022-07-22 16:11 | History & Physical Report ---
Date of Service July 22, 2022 Assessment & Plan (1) Right foot pain: Plan: Acute - Appears to be mixed picture of inflammatory +/- cellulitis - Place in observation to tele d/t soft pressures - No evidence of sepsis, normal lactate 0.9, not febrile or tachycardic - Will treat with short course of Prednisone 40mg po daily x 5 days - Also initiate empiric antibiotics with Keflex 500mg PO QID - If worsening pain, could consider CT of RLE, however couldn't use contrast given renal function - PT/OT eval (2) Hypotension: Plan: Acute - Suspect that this is not secondary to infection but rather medication induced - Discussed with Dr. Sanders with whom pt follows - recent increase back to his original dose of Toprol was noted at his last cardiology visit end of Jun 2022 from 25mg to 50mg - Pt has been having intermittent dizziness/lightheadedness with position changes since the increase back to 50mg - Will reduce Metoprolol Succinate back to 25mg daily - Hold Entresto for now, may need to consider reducing dose pending BP response in AM - NO FURTHER IV fluids to be given - Monitor BP closely - Dr. Sanders updated on plan but no formal cardiology consult placed at this time (3) HFrEF (heart failure with reduced ejection fraction): Plan: Chronic/Compensated - Resume Bumex 1mg daily, Metoprolol Succinate at reduced dose - Hold Entresto as indicated above - Continue Jardiance (4) CKD (chronic kidney disease) stage 3, GFR 30-59 ml/min: Plan: Chronic/stable - Reviewed CMP, within baseline creatinine of 1.5-2.0 - Monitor with repeat CMP in AM (5) Obstructive sleep apnea treated with continuous positive airway pressure (CPAP): Plan: - May use own CPAP at HS - Noted to be transiently hypoxic in ER when he dozed off which is to be expected with chronic RHIANNA (6) Atrial flutter: Plan: Chronic, h/o afib/flutter (paroxysmal) - Currently paced on monitor - Continue Sotalol 80mg BID and Eliquis 5mg BID - Toprol XL to be resumed at reduced rate with hold parameters as above (7) Anxiety: Plan: Chronic/stable - Continue Citalopram and PRN Ativan Plan DVT ppx covered with Eliquis resumption. AM labs ordered. Above plan of care has been d/w Dr. Farias who has also seen and evaluated this patient. Further orders will be implemented as warranted. History of Present Illness Chief Complaint: R foot pain Primary Care Provider: Linn Vazquez MD Mr. 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 Patient reports that he noticed some redness/tenderness that started on the bottom aspect of his R foot on Mo nday. Redness and swelling progressed throughout the week spreading to the top of his foot with pain into his ankle and some redness/tenderness in his calf. No prior h/o gout per pt. Patient lives at home with his but apparently his neighbor comes and checks on them. According to documentation, the patient seemed a bit confused prompting the neighbor to summon EMS. Pt notes that he has also had some URI symptoms including cough and congestion with post nasal drip. He denies dyspnea or wheezing. He also denies fever/chills. His foot is painful to walk on. Upon arrival to the ER he was noted to be hypotensive in the 70s systolic. He was treated with 1.5L of NSS by EMD. He did admit to taking all of his home medications this morning including Sotalol, Metoprolol Succinate, Bumex, and Entresto. In addition, he underwent CXR which did not show any acute changes but some chronic cardiomegaly and mild congestive heart failure. A foot xray was obtained showing mild dorsal soft tissue swelling. His labs reflected a normal wbc count w/o shift and he is afebrile. Normal procalcitonin. A urine has been ordered but not yet collected although he has no urinary symptoms. Venous doppler was performed and was also negative. He has been given a dose of Doxycycline 100mg IV and a dose of Solumedrol. He was referred to the hospitalist service for admission due to persistent hypotension despite fluid resuscitation and also for difficulty ambulating due to foot pain and dizziness. Allergies Allergy/AdvReac Type Severity Reaction Status Date / Time heparin Allergy Severe CAUSES HIT Verified 07/22/22 15:16 silver AdvReac Intermediate TOPICAL - Verified 07/22/22 15:16 BURNING, PAIN Home Medications Medication Instructions Recorded Confirmed Type sotalol 80 mg tablet 80 mg PO BID #180 tabs 09/27/21 07/22/22 Rx lorazepam 0.5 mg tablet 0.5 mg PO DAILY PRN anxiety #30 12/07/21 07/22/22 Rx tabs apixaban 5 mg tablet 5 mg PO BID #180 tabs 03/10/22 07/22/22 Rx aspirin 81 mg tablet,delayed 81 mg PO DAILY #90 tabs 03/10/22 07/22/22 Rx release atorvastatin 20 mg tablet 20 mg PO DAILY #90 tabs 03/10/22 07/22/22 Rx bumetanide 1 mg tablet 1 mg PO DAILY #90 tabs 03/10/22 07/22/22 Rx pantoprazole 40 mg tablet,delayed 40 mg PO DAILY #90 tabs 03/10/22 07/22/22 Rx release potassium chloride 10 mEq 20 meq PO DAILY #90 caps 03/10/22 07/22/22 Rx capsule,extended release citalopram 20 mg tablet 20 mg PO DAILY 05/23/22 07/22/22 History sacubitril 49 mg-valsartan 51 mg 1 tab PO BID 05/23/22 07/22/22 History tablet (Entresto) zolpidem 10 mg tablet 5 - 10 mg PO HS PRN insomnia #30 06/13/22 07/22/22 Rx tabs empagliflozin 10 mg tablet 10 mg PO DAILY #30 tabs 06/28/22 07/22/22 Rx (Jardiance) amoxicillin 500 mg capsule 2,000 mg PO DIRECTED PRN PRIOR 07/22/22 07/22/22 History TO DENTAL APPT. gabapentin 600 mg tablet 600 mg PO BID 07/22/22 07/22/22 History metoprolol succinate 50 mg 25 mg PO DAILY 07/22/22 07/22/22 History tablet,extended release 24 hr nitroglycerin 0.4 mg sublingual 0.4 mg sublingual DIRECTED PRN 07/22/22 07/22/22 History tablet Chest Pain Past Med/Surg History Medical History (Updated 07/22/22 @ 16:51 by Amilcar Lynn DO) CKD (chronic kidney disease) stage 3, GFR 30-59 ml/min GERD (gastroesophageal reflux disease) HFrEF (heart failure with reduced ejection fraction) History of basal cell carcinoma Insomnia Paroxysmal ventricular tachycardia (11/01/10) Surgical History S/P below knee amputation L leg 2013 S/P quadruple vessel bypass 2010, in [place] Family History Denies family history of Ovarian cancer Prostate cancer Breast cancer Colorectal cancer Social History Smoking Status: Unknown if ever smoked Cigarettes Per Day: 20; Second Hand Exposure: No; Hx Alcohol Use: No Hx Substance Use: No Preferred Language: [place] Communication Ability: Effective Communication Ability Comment: hard of hearing Tail Ripper Required: No Beliefs That Will Affect Care: None marital status: Current Living Situation: Spouse current occupational status: retired Other Information That Helps Us Care for You: No Feels Safe at Home: Yes Safety Concerns: Feels Safe At This Time caffeine: Yes Dental Care, Regularly: Yes Seatbelt Use: always Sunscreen Use: Yes Assistive Devices: Cane, Special Shoe, Walker and Wheelchair Assistive Devices Comment: hearing aide at home, calling to bring glasses in Physical Exam Physical Exam: GENERAL: 71 yo Well-developed, well-nourished elderly WM. NAD. LUNGS: Clear to auscultation bilaterally. No accessory muscle use. No W/R/R. CARDIOVASCULAR: Regular rate and rhythm. (paced on monitor) No M/G/R. No JVD. EXTREMITIES: RLE w/ edema of medial malleolus and dorsum of foot with erythema over the dorsum and medial aspect of foot. No ankle swelling appreciated. No overt calf tenderness. Does elicit some pain with ankle flexion that radiates up medial leg. Mild/faint erythema on medial calf. S/P L BKA NEURO: AAOx4 Results & Data Results & Data Vital Signs (Past 12 Hours) Vital Signs Temp Pulse Resp BP Pulse Ox O2 Del Method O2 Flow Rate 07/22/22 14:10 60 17 76/44 L 98 Nasal Cannula 2 07/22/22 14:05 60 14 78/48 L 96 Nasal Cannula 2 07/22/22 14:00 60 18 71/47 L 96 Nasal Cannula 2 07/22/22 13:55 60 16 69/46 L 94 Nasal Cannula 2 07/22/22 13:50 60 16 68/50 L 94 Nasal Cannula 2 07/22/22 13:45 60 16 80/43 L 96 Nasal Cannula 2 07/22/22 13:38 60 16 77/39 L 92 Nasal Cannula 2 07/22/22 13:35 60 16 78/33 L 93 Nasal Cannula 2 07/22/22 13:32 60 12 73/42 L 92 Nasal Cannula 2 07/22/22 13:31 60 16 68/40 L 92 Nasal Cannula 2 07/22/22 13:30 60 17 70/40 L 93 Nasal Cannula 2 07/22/22 13:29 60 12 80/45 L 93 Nasal Cannula 2 07/22/22 13:25 60 22 82/42 L 92 Nasal Cannula 2 07/22/22 13:20 60 18 85/50 L 90 Nasal Cannula 2 07/22/22 13:15 60 16 83/47 L 93 Nasal Cannula 2 07/22/22 13:10 60 15 85/47 L 92 Nasal Cannula 2 07/22/22 13:05 60 17 83/45 L 95 Nasal Cannula 2 07/22/22 13:00 60 14 95 07/22/22 13:00 84/54 L 07/22/22 12:55 60 15 91 07/22/22 12:55 67/49 L 07/22/22 12:50 82/50 L 07/22/22 12:50 60 13 95 07/22/22 12:45 60 18 94 07/22/22 12:45 69/49 L 07/22/22 12:40 61 13 94 07/22/22 12:40 74/48 L 07/22/22 12:37 62 19 94 07/22/22 12:37 78/48 L 07/22/22 11:45 81/49 L 07/22/22 11:45 62 15 94 07/22/22 11:42 85/48 L 07/22/22 11:42 60 15 95 07/22/22 11:41 60 12 07/22/22 11:35 60 17 80/45 L 94 Nasal Cannula 2 07/22/22 11:30 60 14 83/47 L 95 Nasal Cannula 2 07/22/22 11:25 60 18 80/49 L 93 Nasal Cannula 2 07/22/22 11:20 60 16 83/49 L 94 Nasal Cannula 2 07/22/22 11:18 67 16 82/43 L 93 Nasal Cannula 2 07/22/22 11:11 60 18 81/42 L 92 Nasal Cannula 2 07/22/22 11:10 60 14 78/50 L 93 Nasal Cannula 2 07/22/22 11:05 60 12 85/45 L 91 Nasal Cannula 2 07/22/22 10:41 65 16 92 Nasal Cannula 2 07/22/22 11:00 60 14 78/47 L 94 Nasal Cannula 2 07/22/22 10:55 60 16 78/46 L 94 Nasal Cannula 2 07/22/22 10:51 60 16 82/41 L 95 Nasal Cannula 2 07/22/22 10:47 61 16 77/45 L 93 Nasal Cannula 2 07/22/22 10:43 12 77/47 L 92 Nasal Cannula 2 07/22/22 10:41 16 79/47 L 89 L Room Air 07/22/22 10:41 36.4 C L 60 18 78/46 L 88 L Room Air 07/22/22 10:49 60 Laboratory Results 07/22/22 11:41 07/22/22 11:41 Diagnostic Findings Chest X-Ray 07/22/22 10:41 XR chest 1V portable HISTORY: Sepsis COMPARISON: Chest CT 03/30/2022. FINDINGS: No pneumothorax. No pleural effusions. The heart remains mildly enlarged. There is mild central pulmonary vascular congestion without overt mina ma. Bibasilar linear densities favor subsegmental atelectasis. Left-sided pacemaker/defibrillator. Poststernotomy changes again noted. IMPRESSION: No change in the cardiomegaly and mild congestive change. ACT 112: Negative or not required by law. Electronically signed by: Cosme Ordoñez M.D. 07/22/2022 12:07 PM Foot X-Ray 07/22/22 10:49 XR foot RT min 3V routine CLINICAL HISTORY: Atraumatic swelling/pain COMPARISON STUDY: None. FINDINGS: No acute fracture or dislocation within the right foot. Mild vascular calcifications are noted. Mild dorsal soft tissue swelling. There is a large plantar heel spur. The Lisfranc joint is intact. Mild degenerative changes within the foot. Well-corticated ossific density at the base of the second proximal phalanx likely represents an old fracture. IMPRESSION: 1. No acute fracture or dislocation within the right foot. 2. Mild dorsal soft tissue swelling. ACT 112: Negative or not required by law. Electronically signed by: Cosme Ordoñez M.D. 07/22/2022 12:02 PM Venous Doppler Study 07/22/22 10:49 US venous doppler LE RT HISTORY: 71 years-old Male swelling/pain eval for dvt acute pain and swelling of the right lower leg COMPARISON: None TECHNIQUE: Multiple real-time sonographic images of the right lower extremity deep venous structures were obtained assessing grayscale appearance, color and spectral flow. FINDINGS: Normal flow, compressibility, phasicity and augmentation. IMPRESSION: No sonographic evidence of deep venous thrombosis. ACT 112: Negative or not required by law. The above report was generated using voice recognition software. It may contain grammatical, syntax or spelling errors. Electronically signed by: Hilario Lee M.D. 07/22/2022 12:33 PM Code Status & VTE Plan Code Status condition code- only wants ONE ROUND of CPR, defib, meds. No intubation/mech vent. Supervising Physician Co-Signing Physician Notes Patient seen and examined, chart reviewed, case discussed with Anai Barrera PA-C and I agree with the assessment and plan as above except as otherwise noted Labs and images reviewed Ninfa is seen at the bedside in conjunction with SONA. Does have right foot pain and some erythema at the dorsum of the foot, scant erythema where his leg was resting on the bed in the posterior calf. Patient does have pain in the foot on palpation and dorsiflexion/plantarflexion, and has pain in his first MCP. He is not febrile, has a normal lactate, no leukocytosis, normal procalcitonin. Patient does have a reduced EF and has baseline systolic low pressures ranging from high [id number], his metoprolol has recently been reduced as he did not tolerate a dose increase. Has been tolerating Entresto. Cardiology aware, will hold Entresto follow hypertension for now. At bedside lungs are clear, heart rate is regular at time of assessment. Given findings potentially consistent with cellulitis agree with continued course of antibiotics, no purulence is appreciated and will convert Doxy to Keflex 4 times daily. If patient is not clinically improving/has expanding pain or erythema follow-up with CT, at time of admission patient's creatinine is slightly elevated from fluctuating baseline of around 1.41.88. Differential does include gout although lower suspicion for this as involves multiple areas of the foot as not as prominently tender on palpation. Agree with recommendations and management above. PG Care Time/CCT Total # of Minutes Spent Total Time Spent with Patient: Total time spent is greater than 50% in coordination of care (as documented) at patient's floor/unit and/or counseling patient: Coding Level of Care Code 56708 INT INP/OBS CARE 3/75MIN Diagnoses Right foot pain M79.671 Hypotension I95.9 HFrEF (heart failure with reduced ejection fraction) I50.20 CKD (chronic kidney disease) stage 3, GFR 30-59 ml/min N18.30 Obstructive sleep apnea treated with continuous positive airway pressure (CPAP) G47.33; Z99.89 Atrial flutter I48.92 Atrial flutter type: unspecified Anxiety F41.9 (6) Atrial flutter Atrial flutter type: unspecified Qualified Code(s): I48.92 - Unspecified atrial flutter
[2022-07-22] MEDS ORDERED: ACETAMINOPHEN 325 MG TAB PO PRN (16:56)
[2022-07-22] MEDS ORDERED: ALUMINUM/MAGNESIUM SUSP 30 ML UDC PO PRN (16:56)
[2022-07-22] MEDS ORDERED: ONDANSETRON INJ 2 MG/ML 2 ML VIAL IV PRN (16:56)
[2022-07-22] MEDS ORDERED: POLYETHYLENE (MIRALAX) 17 GM PACK PO PRN (16:56)
[2022-07-22] MEDS ORDERED: MAGNESIUM HYDROXIDE SUSP 30 ML UDC PO PRN (16:56)
[2022-07-22] MEDS ORDERED: LORazepam 0.5 MG TAB PO PRN (16:56)
[2022-07-22] MEDS: cephALEXin 500 MG CAP PO SCH ×2 (17:45→20:08)
[2022-07-22 19:28] LABS: Appearance Urine Clear (Clear); Bacteria Urine Automated Negative (Negative); Bilirubin Urine Negative (Negative); Blood Urine Negative (Negative); Color Urine Dark Yellow; Glucose Urine UA 3+ (Negative); Ketones Urine Negative (Negative); Leukocyte Esterase Urine Negative (Negative); Nitrite Urine Negative (Negative); Protein Urine Trace (Negative); RBC Urine Automated 0-4 /hpf (0-4); Specific Gravity Urine 1.024 (1.000-1.030); Urobilinogen Urine Negative (Negative)
[2022-07-22 19:41] LABS: Cast Urine Automated >30 /lpf (0-5)
[2022-07-22] MEDS: GABAPENTIN 600 MG TAB PO SCH (20:08)
[2022-07-22] MEDS: SOTALOL HCL 80 MG TAB PO SCH (20:08)
[2022-07-22] MEDS: APIXABAN 5 MG TABLET PO SCH (20:08)
[2022-07-22] MEDS: ZOLPIDEM TARTRATE 5 MG TAB PO PRN (22:49)
--- NOTE | 2022-07-23 02:27 | Electrocardiogram Report ---
Test Reason : Blood Pressure : / mmHG Vent. Rate : 060 BPM Atrial Rate : 063 BPM P-R Int : 000 ms QRS Dur : 172 ms QT Int : 532 ms P-R-T Axes : -04 245 -17 degrees QTc Int : 532 ms Poor data quality, interpretation may be adversely affected AV dual-paced rhythm Biventricular pacemaker detected Abnormal ECG When compared with ECG of 28-JUN-2022 10:53, Vent. rate has decreased BY 14 BPM Confirmed by Sampson Atkins ([id number]) on 07/23/2022 2:27:10 AM Referred By: Confirmed By:Sampson Atkins
[2022-07-23 07:34] LABS: Basophils # (auto) 0.01 K/uL (0-0.2); Basophils % (auto) 0.1 %; Hematocrit (blood only) 35.8 % (42.0-52.0); Immature Granulocytes # (auto) 0.02 K/uL (0.01-0.20); Immature Granulocytes % (auto) 0.3 %; Lymphocytes # (auto) 0.37 K/uL (1.2-3.4); Lymphocytes % (auto) 4.7 %; Mean Corpuscular Hemoglobin 30.1 pg (25.0-34.0); Mean Corpuscular Hgb Conc 33.5 g/dL (32.0-36.0); Mean Corpuscular Volume 89.7 fL (80.0-100.0); Mean Platelet Volume 10.2 fL (9.4-12.4); Monocytes # (auto) 0.43 K/uL (0.11-0.59); Monocytes % (auto) 5.4 %; Neutrophils # (auto) 7.08 K/uL (1.40-6.50); Neutrophils % (auto) 89.5 %; Platelet Count 144 K/uL (130-400); Red Blood Count 3.99 M/uL (4.70-6.10); White Blood Count 7.91 K/ul (4.8-10.8)
[2022-07-23 08:06] LABS: Albumin Globulin Ratio 1.2 (0.9-2); Albumin Level 3.5 gm/dl (3.4-5.0); BUN Creatinine Ratio 22.8 (10-20); Bilirubin,Total 1.1 mg/dl (0.2-1.0); Calcium 8.7 mg/dl (8.5-10.1); Creatinine Clr Calc Pharmacy 37.7 ml/min; Est GFR (African American) 38.9 ml/min; Est GFR (Non-African American) 33.6 ml/min; Globulin 2.9 gm/dl (2.5-4.0); Potassium 4.6 mmol/L (3.5-5.1); Total Protein 6.4 gm/dl (6.0-8.3)
[2022-07-23] MEDS: GABAPENTIN 600 MG TAB PO SCH ×2 (08:10→21:02)
[2022-07-23] MEDS: SOTALOL HCL 80 MG TAB PO SCH ×2 (08:10→21:02)
[2022-07-23] MEDS: APIXABAN 5 MG TABLET PO SCH ×2 (08:10→21:03)
[2022-07-23] MEDS: cephALEXin 500 MG CAP PO SCH ×3 (08:10→17:35)
[2022-07-23] MEDS: EMPAGLIFLOZIN 10 MG TAB PO SCH (08:11)
[2022-07-23] MEDS: predniSONE 20 MG TAB PO SCH (08:11)
[2022-07-23] MEDS: ATORVASTATIN 20 MG TAB PO SCH (08:11)
[2022-07-23] MEDS: ASPIRIN 81 MG ECTAB PO SCH (08:11)
[2022-07-23] MEDS: CITALOPRAM 20 MG TAB PO SCH (08:11)
[2022-07-23] MEDS: PANTOprazole 40 MG TAB PO SCH (08:11)
[2022-07-23] MEDS: POTASSIUM CHLORIDE CRTAB 20 MEQ TABCR PO SCH (08:11)
[2022-07-23] MEDS: METOPROLOL SUCC 25MG EXT REL TAB PO SCH (08:11)
[2022-07-23] MEDS: BUMETANIDE 1 MG TAB PO SCH (08:11)
--- NOTE | 2022-07-23 17:11 | Hospitalist Progress Note ---
Date of Service July 23, 2022 Assessment & Plan (1) Gouty arthritis of right foot: Plan: right mid-foot gouty arthritis, right first toe MTP joint gout (podagra), +/- right ankle gouty arthritis as well. MARKED improvement overnight with steroid therapy. I do not suspect that any of right foot findings are from cellulitis; will d/c abx. Cont prednisone. This will also help with #2 below. Check uric acid level in am. Check ESR in am. Natural history of gout discussed with pt & his . neg x-rays of R foot noted from admission (no CPPD changes, no fracture). (2) Acute bronchitis: Plan: repeat cxr today - 2 view - w/o pneumonia or edema. symptoms/exam c/w acute bronchitis. he may have underlying COPD - CT chest in 2021 showed emphysematous changes. prednisone for acute gout will help. add tessalon TID. add mucinex BID. add combivent QID. send sputum culture. defer on abx for now. checked a [employer] resp panel - returned fully negative surprisingly (3) EVIE (acute kidney injury): Plan: Cr today 1.9 baseline Cr 1.4 to 1.6 Hold entresto ok to cont metoprolol & bumex repeat BMP am (4) Skin lesion: Plan: left leg stump - likely due to friction from his prosthesis bactroban ointment TID cover w/ optifoam as needed recommend he return to [facility] to have any necessary adjustments to his prosthesis to prevent skin irritation (5) Hypotension: Plan: likely due to medications in the setting of severe LV dysfunction records from cardiology clinic over the last year show juggling of his toprol dose, on/off Entresto depending on BPs, etc Toprol dose at Jun 2022 cardiology visit was increased from 25mg to 50mg prior attending hospitalist spoke with Dr Sanders yesterday - they both agreed to lower the metoprolol succinate from 50mg back to 25mg cont to hold Entresto keep sotalol keep diuretic I am satisfied with SBPs in the 90s - not unusual for individuals with severe LV dysfunction to run in this range defer on IV fluid he appears compensated from CHF standpoint today (6) HFrEF (heart failure with reduced ejection fraction): Plan: see #5 above cont metoprolol xl cont sotalol cont bumex cont jardiance (7) CKD (chronic kidney disease) stage 3, GFR 30-59 ml/min: Plan: with superimposed EVIE BMP am hold Entresto (8) Obstructive sleep apnea treated with continuous positive airway pressure (CPAP): Plan: CPAP (9) Atrial flutter: Plan: Chronic, h/o afib/flutter (paroxysmal) Paced on monitor Continue Sotalol 80mg BID and Eliquis 5mg BID Continue metoprolol succinate 25mg daily (see above) (10) Anxiety: Plan: Continue Citalopram and PRN Ativan Plan extensively updated at bedside questions answered potential dc tomorrow if Cr is stable, bronchitis is stable, and gout is improved Admission and Anticipated Discharge Date Admission Date: July 22, 2022 Subjective right foot/right great toe pain dramatically better he can weight bear more easily less tender the pain in this location came on suddenly earlier this week it got to a point that even putting a sock on caused pain has never had gout can't recall any seafood consumption, etoh consumption he did eat deli meat multiple times this week, however he also complaints of 1+ week of URI symptoms cough and congestion are worst symptoms coughing up sputum very bronchial cough ex-smoker, having quit in 2013 no formal dx of COPD was also recently sick with URI symptoms no fever despite the above he has been eating decently in addition he has a skin sore on his distal left anterior leg/stump it has crusted over but for a while it was an open ulcer 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 area he typically goes to [facility] for any issues with his prosthesis Review of Systems Review of Systems: gen - no fevers or chills cv - no chest pain; baseline dry weight is 200 pounds; he is 201 pounds today pulm - cough, congestion, minimal dyspnea GI - no abd pain, nausea, or emesis Physical Exam Physical Exam: gen - severe bronchial cough at times, otherwise NAD, pleasant neck - no JVD mouth - MMM heart - RRR, s1 s2, no murmur lungs - mild end-exp wheezes especially when he coughs; no rales; no increased work of breathing abd - soft NT ND BS+ musculo - left leg BKA; right foot - midfoot with swelling, slight warmth, and minimal tenderness to palpation; R great toe MTP minimal swelling; right ankle minimal swelling; I am able to passively move the right ankle joint without pain skin - tiny skin lesion with crust on anterior distal stump of left leg; no cellulitis or drainage ext - no edema left leg; right leg - focal edema of R ankle/foot due to inflammatory arthropathy; no abad edema psych - a/o x 3 Results & Data Results & Data Vital Signs (Past 12 Hours) Vital Signs Temp Pulse Pulse Resp BP Pulse Ox Pulse Ox 07/23/22 16:55 36.9 C 61 18 82/50 L 93 07/23/22 13:13 36.6 C 66 20 92/57 L 95 07/23/22 10:41 97 07/23/22 07:00 60 07/23/22 08:27 36.5 C 72 18 95/58 L 92 O2 Del Method O2 Del Method 07/23/22 16:55 Room Air 07/23/22 13:13 Room Air 07/23/22 10:41 Room Air 07/23/22 07:00 07/23/22 08:27 Room Air Laboratory Results Laboratory Results - last 24 hr 07/22/22 07/23/22 07/23/22 19:09 07:16 07:16 WBC 7.91 RBC 3.99 L Hgb 12.0 L Hct 35.8 L MCV 89.7 MCH 30.1 MCHC 33.5 RDW Std Deviation 43.0 RDW Coeff of Faby 13.0 Plt Count 144 MPV 10.2 Immature Gran % (Auto) 0.3 Neut % (Auto) 89.5 Lymph % (Auto) 4.7 [place] % (Auto) 5.4 Eos % (Auto) 0.0 Baso % (Auto) 0.1 Neut # (Auto) 7.08 H Lymph # (Auto) 0.37 L [place] # (Auto) 0.43 Eos # (Auto) 0.00 Baso # (Auto) 0.01 Immature Gran # (Auto) 0.02 Sodium 136 Potassium 4.6 Chloride 107 Carbon Dioxide 22 Anion Gap 7 BUN 44 H Creatinine 1.93 H Est Cr Clr Drug Dosing 37.7 Est GFR ( Amer) 38.9 Est GFR (Non-Af Amer) 33.6 BUN/Creatinine Ratio 22.8 H Glucose 135 H Calcium 8.7 Total Bilirubin 1.1 H AST 7 L ALT 5 L Alkaline Phosphatase 69 Total Protein 6.4 Albumin 3.5 Globulin 2.9 Albumin/Globulin Ratio 1.2 Urine Color Dark Yellow Urine Appearance Clear Urine pH 5.0 Ur Specific [place] 1.024 Urine Protein Trace H Urine Glucose (UA) 3+ H Urine Ketones Negative Urine Blood Negative Urine Nitrite Negative Urine Bilirubin Negative Urine Urobilinogen Negative Ur Leukocyte Esterase Negative Urine WBC (Auto) 1-5 Urine RBC (Auto) 0-4 U Hyaline Cast (Auto) >30 H U Epithel Cells (Auto) 10-20 H Urine Bacteria (Auto) Negative PG Care Time/CCT Total # of Minutes Spent Total Time Spent with Patient: Total time spent is greater than 50% in coordination of care (as documented) at patient's floor/unit and/or counseling patient: Coding Level of Care Code 06913 SUB INP/OBS CARE 3/50MIN Diagnoses Gouty arthritis of right foot M10.9 Acute bronchitis J20.9 EVIE (acute kidney injury) N17.9 Skin lesion L98.9 Hypotension I95.9 HFrEF (heart failure with reduced ejection fraction) I50.20 CKD (chronic kidney disease) stage 3, GFR 30-59 ml/min N18.30 Obstructive sleep apnea treated with continuous positive airway pressure (CPAP) G47.33; Z99.89 Atrial flutter I48.92 Atrial flutter type: unspecified Anxiety F41.9 (9) Atrial flutter Atrial flutter type: unspecified Qualified Code(s): I48.92 - Unspecified atrial flutter
[2022-07-23] MEDS ORDERED: BENZONATATE 100 MG CAPSULE PO NR (17:15)
--- NOTE | 2022-07-23 17:53 | XRay Report ---
XR chest 2V PA/lateral CLINICAL HISTORY: bronchitis, CHF COMPARISON STUDY: Chest CT March 30, 2022 and chest radiograph July 22, 2022. FINDINGS: There are median sternotomy wires and a left subclavian biventricular pacer/AICD. Cardiomeg miguel is unchanged. There is no pneumothorax or pleural effusion. There is no consolidation to suggest pneumonia. No evidence for pulmonary edema. Mild improvement in interstitial thickening may be techni tom. IMPRESSION: 1. Cardiomegaly with pulmonary vascular congestion, stable to slightly improved since prior exam. 2. No consolidation to suggest pneumonia. ACT 112: Negative or not required by law. Electronically signed by: Guillermo Braden M.D. 07/23/2022 5:51 PM
[2022-07-23 18:33] LABS: Adenovirus PCR Not Detected (NotDetected); Bordetella parapertussis PCR Not Detected (NotDetected); Bordetella pertussis PCR Not Detected (NotDetected); Chlamydia pneumoniae PCR Not Detected (NotDetected); Coronavirus 229E PCR Not Detected (NotDetected); Coronavirus CoV-2 (COVID19)PCR Not Detected (NotDetected); Coronavirus HKU1 PCR Not Detected (NotDetected); Coronavirus NL63 PCR Not Detected (NotDetected); Coronavirus OC43PCR Not Detected (NotDetected); Human Metapneumovirus PCR Not Detected (NotDetected); Influenza A PCR Not Detected (NotDetected); Influenza B PCR Not Detected (NotDetected); Mycoplasma pneumoniae PCR Not Detected (NotDetected); Parainfluenza Virus 1 PCR Not Detected (NotDetected); Parainfluenza Virus 2 PCR Not Detected (NotDetected); Parainfluenza Virus 3 PCR Not Detected (NotDetected); Parainfluenza Virus 4 PCR Not Detected (NotDetected); Respiratory Syncytial VirusPCR Not Detected (NotDetected); Rhinovirus/Enterovirus PCR Not Detected (NotDetected)
[2022-07-23] MEDS ORDERED: IPRATROPIUM BROMIDE HFA INHALER INH SCH (19:00)
[2022-07-23] MEDS ORDERED: ALBUTEROL HFA 8 GM INHALER INH SCH (19:00)
[2022-07-23] MEDS: Ipratropium HFA Inhaler (Combivent Respimat P&T Subs) INH SCH (19:40)
[2022-07-23] MEDS: Albuterol HFA 8 GM Inhaler (Combivent Respimat P&T Subs) INH SCH (19:40)
[2022-07-23] MEDS ORDERED: IPRATROPIUM BROMIDE/ALBUTEROL respimat INH INH SCH (21:00)
[2022-07-23] MEDS: guaiFENesin 600 MG TABCR PO SCH (21:03)
[2022-07-23] MEDS: BENZONATATE 100 MG CAPSULE PO SCH (21:03)
[2022-07-23] MEDS: MUPIROCIN 2% OINT 22 GM TUBE EXT SCH (21:04)
[2022-07-23] MEDS: ZOLPIDEM TARTRATE 5 MG TAB PO PRN (22:14)
[2022-07-24 07:32] LABS: BUN Creatinine Ratio 32.3 (10-20); Calcium 8.6 mg/dl (8.5-10.1); Creatinine Clr Calc Pharmacy 46.5 ml/min; Est GFR (African American) 49.6 ml/min; Est GFR (Non-African American) 42.8 ml/min; Uric Acid 8.6 mg/dl (2.6-7.2)
[2022-07-24] MEDS: Albuterol HFA 8 GM Inhaler (Combivent Respimat P&T Subs) INH SCH (07:47)
[2022-07-24] MEDS: Ipratropium HFA Inhaler (Combivent Respimat P&T Subs) INH SCH (07:48)
[2022-07-24] MEDS: MUPIROCIN 2% OINT 22 GM TUBE EXT SCH ×2 (08:52→15:05)
[2022-07-24] MEDS: predniSONE 20 MG TAB PO SCH (08:53)
[2022-07-24] MEDS: CITALOPRAM 20 MG TAB PO SCH (08:53)
[2022-07-24] MEDS: APIXABAN 5 MG TABLET PO SCH (08:53)
[2022-07-24] MEDS: guaiFENesin 600 MG TABCR PO SCH (08:53)
[2022-07-24] MEDS: ASPIRIN 81 MG ECTAB PO SCH (08:53)
[2022-07-24] MEDS: EMPAGLIFLOZIN 10 MG TAB PO SCH (08:53)
[2022-07-24] MEDS: BENZONATATE 100 MG CAPSULE PO SCH ×2 (08:53→15:05)
[2022-07-24] MEDS: GABAPENTIN 600 MG TAB PO SCH (08:53)
[2022-07-24] MEDS: PANTOprazole 40 MG TAB PO SCH (08:54)
[2022-07-24] MEDS: BUMETANIDE 1 MG TAB PO SCH (08:54)
[2022-07-24] MEDS: POTASSIUM CHLORIDE CRTAB 20 MEQ TABCR PO SCH (08:54)
[2022-07-24] MEDS: METOPROLOL SUCC 25MG EXT REL TAB PO SCH (08:54)
[2022-07-24] MEDS: SOTALOL HCL 80 MG TAB PO SCH (08:54)
[2022-07-24] MEDS: ATORVASTATIN 20 MG TAB PO SCH (08:54)
[2022-07-24] MEDS ORDERED: COLCHICINE 0.6 MG TAB PO ONE (10:38)
[2022-07-24] MEDS ORDERED: ALBUTEROL HFA 8 GM INHALER INH PRN (10:43)
[2022-07-24] MEDS ORDERED: IPRATROPIUM BROMIDE HFA INHALER INH PRN (10:44)
--- NOTE | 2022-07-24 16:07 | Discharge Summary ---
Date of Service date of admission - July 22, 2022 date of discharge - July 24, 2022 Admission HPI Per Admitting Provider Mr. 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 Patient reports that he noticed some redness/tenderness that started on the bottom aspect of his R foot on Monday. Redness and swelling progressed throughout the week spreading to the top of his foot with pain into his ankle and some redness/tenderness in his calf. No prior h/o gout per pt. Patient lives at home with his but apparently his neighbor comes and checks on them. According to documentation, the patient seemed a bit confused prompting the neighbor to summon EMS. Pt notes that he has also had some URI symptoms including cough and congestion with post nasal drip. He denies dyspnea or wheezing. He also denies fever/chills. His foot is painful to walk on. Upon arrival to the ER he was noted to be hypotensive in the 70s systolic. He was treated with 1.5L of NSS by EMD. He did admit to taking all of his home medications this morning including Sotalol, Metoprolol Succinate, Bumex, and Entresto. In addition, he underwent CXR which did not show any acute changes but some chronic cardiomegaly and mild congestive heart failure. A foot xray was obtained showing mild dorsal soft tissue swelling. His labs reflected a normal wbc count w/o shift and he is afebrile. Normal procalcitonin. A urine has been ordered but not yet collected although he has no urinary symptoms. Venous doppler was performed and was also negative. He has been given a dose of Doxycycline 100mg IV and a dose of Solumedrol. He was referred to the hospitalist service for admission due to persistent hypotension despite fluid resuscitation and also for difficulty ambulating due to foot pain and dizziness. Principal Diagnosis 1. right foot pain - likely gouty arthritis of mid-foot & great toe 2. abrasion/early ulcer left leg stump 3. hypotension - resolved 4. chronic systolic congestive heart failure 5. acute bronchitis 6. acute kidney injury - resolved; discharge Cr 1.5 Discharge Exam gen - bronchial cough at times, otherwise NAD, pleasant neck - no JVD mouth - MMM heart - RRR, s1 s2, no murmur lungs - mild end-exp wheezes; no rales; no increased work of breathing abd - soft NT ND BS+ musculo - left leg BKA; right foot - midfoot with resolving swelling, warmth; minimal tenderness to palpation of right mid-foot; R great toe MTP minimal swelling; right ankle minimal swelling; I am able to passively move the right ankle joint without pain skin - tiny skin lesion with crust on anterior distal stump of left leg; no cellulitis or drainage ext - no edema left leg; right leg - focal edema of R ankle/foot due to inflammatory arthropathy; no abad edema Discharge Data Allergies Allergy/AdvReac Type Severity Reaction Status Date / Time heparin Allergy Severe CAUSES HIT Verified 07/27/22 11:35 silver AdvReac Intermediate TOPICAL - Verified 07/27/22 11:35 BURNING, PAIN Ordered Studies Chest X-Ray 07/22/22 10:41 XR chest 1V portable HISTORY: Sepsis COMPARISON: Chest CT 03/30/2022. FINDINGS: No pneumothorax. No pleural effusions. The heart remains mildly enlarged. There is mild central pulmonary vascular congestion without overt edema. Bibasilar linear densities favor subsegmental atelectasis. Left-sided pacemaker/defibrillator. Poststernotomy changes again noted. IMPRESSION: No change in the cardiomegaly and mild congestive change. ACT 112: Negative or not required by law. Electronically signed by: Cosme Ordoñez M.D. 07/22/2022 12:07 PM Foot X-Ray 07/22/22 10:49 XR foot RT min 3V routine CLINICAL HISTORY: Atraumatic swelling/pain COMPARISON STUDY: None. FINDINGS: No acute fracture or dislocation within the right foot. Mild vascular calcifications are noted. Mild dorsal soft tissue swelling. There is a large plantar heel spur. The Lisfranc joint is intact. Mild degenerative changes within the foot. Well-corticated ossific density at the base of the second proximal phalanx likely represents an old fracture. IMPRESSION: 1. No acute fracture or dislocation within the right foot. 2. Mild dorsal soft tissue swelling. ACT 112: Negative or not required by law. Electronically signed by: Cosme Ordoñez M.D. 07/22/2022 12:02 PM Venous Doppler Study 07/22/22 10:49 US venous doppler LE RT HISTORY: 71 years-old Male swelling/pain eval for dvt acute pain and swelling of the right lower leg COMPARISON: None TECHNIQUE: Multiple real-time sonographic images of the right lower extremity deep venous structures were obtained assessing grayscale appearance, color and spectral flow. FINDINGS: Normal flow, compressibility, phasicity and augmentation. IMPRESSION: No sonographic evidence of deep venous thrombosis. ACT 112: Negative or not required by law. The above report was generated using voice recognition software. It may contain grammatical, syntax or spelling errors. Electronically signed by: Hilario Lee M.D. 07/22/2022 12:33 PM Chest X-Ray 07/23/22 17:07 XR chest 2V PA/lateral CLINICAL HISTORY: bronchitis, CHF COMPARISON STUDY: Chest CT March 30, 2022 and chest radiograph July 22, 2022. FINDINGS: There are median sternotomy wires and a left subclavian biventricular pacer/AICD. Cardiomegaly is unchanged. There is no pneumothorax or pleural effusion. There is no consolidation to suggest pneumonia. No evidence for pulmonary edema. Mild improvement in interstitial thickening may be technical. IMPRESSION: 1. Cardiomegaly with pulmonary vascular congestion, stable to slightly improved since prior exam. 2. No consolidation to suggest pneumonia. ACT 112: Negative or not required by law. Electronically signed by: Guillermo Braden M.D. 07/23/2022 5:51 PM Hospital Course (1) Gouty arthritis of right foot: Right mid-foot gouty arthritis, right first toe MTP joint gout (podagra), +/- right ankle gouty arthritis as well. MARKED improvement with steroid therapy. He was quickly able to weight-bear after just 24 hours of steroid therapy. Low suspicion for right foot cellulitis; however, in the event that there is a mild superimposed cellulitis, the doxycycline for #2 will cover such. Uric acid level was 8.6 with ESR of 52. Right foot x-rays negative for fracture or CPPD changes. Natural history of gout discussed with pt & his . Handouts given including "gout diet." Patient did recall eating shrimp and multiple deli meats in the days preceding the development of his right foot symptoms. At discharge a prednisone course was given. He was counseled that the prednisone can cause fluid retention in the setting of his severe systolic CHF. I had offered to the patient to keep him hospitalized 1 additional day to monitor the foot but the patient wished to be discharged home with his . Thus, he should f/u with PCP in 48 hours for recheck of the foot/ankle. (2) Acute bronchitis: Symptoms/exam c/w acute bronchitis. He may have underlying COPD - CT chest in 2021 showed emphysematous changes. Surprisingly respiratory [employer] panel was fully negative. Sputum culture was sent and was pending at discharge. O2 sats were wnl his entire stay. CXR x 2 failed to show any pneumonia. Prednisone course for acute gout should help his pulmonary symptoms. Cont tessalon TID prn. Cont OTC mucinex BID. Combivent QID prn. Given that he may have underlying COPD and his sputum is purulent gave doxycycline 100mg BID x 7 days at discharge to cover for the small possibility of bacterial infection. (3) EVIE (acute kidney injury): Peak Cr 2 discharge Cr 1.5 baseline Cr 1.4 to 1.6 Held Entresto while here, and will continue to hold at discharge OK to cont metoprolol & bumex repeat BMP within a few days of discharge to ensure stability (4) Skin lesion: left leg stump - likely due to friction from his prosthesis cover w/ optifoam as needed recommend he return to [facility] to have any necessary adjustments to his prosthesis to prevent skin irritation He did not have any overt skin infection of this region while here (5) Hypotension: likely due to medications in the setting of severe LV dysfunction he presented with systolic BPs in the 70s Records from cardiology clinic over the last year show juggling of his toprol dose, on/off Entresto depending on BPs, etc Toprol dose at Jun 2022 cardiology visit was increased from 25mg to 50mg During this stay the hospitalist team spoke with Dr Bandar Sanders, his primary mold maintenance technician, and all were in agreement to lower the metoprolol succinate from 50mg back to 25mg cont to hold Entresto at discharge cont sotalol cont bumex SBPs were in the 90s at discharge and he denied any dizziness from such Of note - not unusual for SBPs to be in the 90s in the setting of severe LV dysfunction (6) HFrEF (heart failure with reduced ejection fraction): see #5 above cont metoprolol xl cont sotalol cont bumex cont jardiance HOLD ENTRESTO at discharge of note - the patient was never clinically or radiographically decompensated at any point during his stay discharge weight was 199 # (baseline dry weight) (7) CKD (chronic kidney disease) stage 3, GFR 30-59 ml/min: with superimposed EVIE hold Entresto at discharge discharge Cr 1.5 (8) Obstructive sleep apnea treated with continuous positive airway pressure (CPAP): CPAP (9) Atrial flutter: Chronic, h/o afib/flutter (paroxysmal) Paced on monitor while here Continue Sotalol 80mg BID and Eliquis 5mg BID Continue metoprolol succinate 25mg daily (see above) (10) Anxiety: Continue Citalopram and PRN Ativan Total Time Total Time Spent Total Time Spent (In Minutes): 50 Discharge Plan Discharge Items Patient Disposition: Home - Self-Care Reason For Visit: Right Foot Pain Discharge Diagnosis: 1. right foot pain - likely due to gout of the big toe and the mid-foot 2. abrasion/early ulcer on left leg 3. hypotension (low blood pressure) - resolved 4. congestive heart failure 5. acute bronchitis; multiple chest x-rays without pneumonia 6. rise in creatinine (kidney number) to 2; improved, discharge creatinine level 1.5 (your baseline level) Activity: As commented below Activity Comment: gradually increase your activities over the next 7-10 days as tolerated Exercise Comment: ok to walk on the right foot as tolerated, but avoid excessive walking Non-emergency contact: Primary Care Provider and Demolition Crane Operator Call non-emergency contact if: you have any medication questions, your symptoms worsen, your pain is not controlled, your pain is worsening and you have a fever Follow-up/Referrals: aBndar Sanders MD [Physician] - 07/27/22 11:30 am Linn Vazquez MD [Primary Care Provider] - (please see Dr Vazquez in 2-3 days for recheck of right foot and your bronchitis ) Diet: Heart Healthy Fluids: 1500ml (6 cups) Addtl Attending Provider Instructions: Mr Ruggiero, You were hospitalized due to right foot pain as well as hypotension (low blood pressure). You received a small amount of fluid in the ER with improvement in your blood pressure. We also lowered your metoprolol dose back to 25mg once daily and HELD your Entresto medication. Your systolic blood pressures ("top number") have now been consistently in the 90s. With respect to the right great toe pain, right foot pain, and swelling this was likely due to gout. Gout can sometimes mimic skin infection (cellulitis) but your symptoms rapidly improved with steroids which is very typical for gout. Cellulitis, on the other hand, usually takes 2-3 days to improve. I suspect that your chronic kidney disease as well as multiple dietary factors (eating deli meat, etc) led to this gout attack. The substance that causes gout - "uric acid" - was high at 8.6. Most individuals have levels of 4-5 or less. Your kidney number ("creatinine") was high at 2 and improved down to 1.5 prior to discharge. This is about where your kidney function level typically sits. I suspect that you have been battling a case of acute bronchitis. Most cases of bronchitis are caused by respiratory viruses. In some cases it can be caused by a few types of bacteria. Your chest x-rays did not show any pneumonia fortunately. A large respiratory panel was negative; thus, I cannot tell you what virus or bacteria has caused your infection. However, your cough/congestion/wheezing/shortness of breath is from the bronchitis. Steroids, inhalers, cough medications, and occasionally antibiotics will help resolve bronchitis. Recommendations - 1. suspected gout of the right great toe and the right mid-foot -- * eat a gout-friendly diet (see handouts) * prednisone course x 7 days, start this TOMORROW 07/25; take prednisone with food * mpvr-[id number]-[id number] tylenol 1000mg every 6 hours as needed for pain, maximum 3000mg in 24 hours * avoid motrin, ibuprofen, naprosyn, etc * ice as needed/as desired * elevate the foot when resting * ok to ambulate/walk/put weight on it but do not do excessive activity for a few days * if you have future gout attacks your outpatient doctors may consider a drug called allopurinol which is a preventative treatment * in the event there is any skin infection of the right foot the doxycycline antibiotic below would cover such 2. bronchitis - * the prednisone for the gout will also help your bronchitis * know that the prednisone can potentially cause fluid retention and thus make your congestive heart failure worse * check your weights every day as previous * if your weight is rising more than 2-3 pounds over 1-2 days please contact cardiology right away * combivent inhaler -- 1 puff every 6 hours as needed for cough/wheeze/etc. * benzonatate pearls -- 1 every 8 hours as needed for cough; do not chew the pearles; this cough medication can occasionally cause drowsiness * ok to use dtft-uwz-dcljzrr mucinex up to 1200mg twice daily as needed for cough * in the event a bacterium caused your bronchitis please take doxycycline antibiotic 1 twice daily x 7 days; this medication can sometimes cause heartburn or stomach upset 3. left leg abrasion/tiny ulcer - keep it covered with Optifoam dressing; change every other day. If it becomes saturated with fluid you can remove it sooner and replace with fresh one. Please see orthotics at [facility] to adjust your prosthesis. 4. congestive heart failure -- * HOLD your Entresto unless Dr Sanders tells you to resume it * continue your metoprolol at a dose of 25mg once daily * continue your bumetanide diuretic 1mg daily as previous * check your weights every day as previous; your weight today is 199 pounds Follow-up - see separate section. Again contact the orthotics division at [facility] in [place] to address your left leg skin issue. Return to [facility] if - * you have fevers over 100 degrees * your shortness of breath worsens * your right foot pain worsens despite the above medications * your right foot swelling, redness, etc worsens despite the above medications * you have any concerns about your left leg skin problem * any other concerns It was our pleasure to care for you! Dr Granados Pending Studies at Discharge: Yes Studies:: sputum culture - we will call you if it shows a bacterium that requires a different type of antibiotic Stand-Alone Forms: My [facility], Smoking Cessation Medications and DC Order Prescriptions: New benzonatate 100 mg Capsule 100 mg PO TID PRN (Reason: cough) Qty: 20 0RF prednisone 10 mg tablet 10 mg PO DIRECTED Qty: 16 0RF Rx Instructions: start 07/25/22 AM: 4 tabs day 1, 3 tabs days 2/3, 2 tabs days 4/5, 1 tab days 6/7. Take with food. Watch for fluid retention/weight gain. Combivent Respimat 20-100 mcg/actuation mist 1 puff inhalation Q6H PRN (Reason: cough/wheeze/shortness of breath) Qty: 4 0RF Continued sotalol 80 mg tablet 80 mg PO BID Qty: 180 3RF zolpidem 10 mg tablet 5 - 10 mg PO HS PRN (Reason: insomnia) Qty: 30 0RF lorazepam 0.5 mg tablet 0.5 mg PO DAILY PRN (Reason: anxiety) Qty: 30 0RF citalopram 20 mg tablet 20 mg PO DAILY Jardiance 10 mg tablet 10 mg PO DAILY Qty: 30 2RF apixaban 5 mg tablet 5 mg PO BID Qty: 180 3RF aspirin 81 mg tablet,delayed release (DR/EC) 81 mg PO DAILY Qty: 90 3RF atorvastatin 20 mg tablet 20 mg PO DAILY Qty: 90 3RF bumetanide 1 mg tablet 1 mg PO DAILY Qty: 90 3RF pantoprazole 40 mg tablet,delayed release (DR/EC) 40 mg PO DAILY Qty: 90 3RF potassium chloride 10 mEq capsule, extended release 20 meq PO DAILY Qty: 90 3RF nitroglycerin 0.4 mg tablet, sublingual 0.4 mg sublingual DIRECTED PRN (Reason: Chest Pain) amoxicillin 500 mg capsule 2,000 mg PO DIRECTED PRN (Reason: PRIOR TO DENTAL APPT.) gabapentin 600 mg tablet 600 mg PO BID metoprolol succinate 50 mg tablet extended release 24 hr 25 mg PO DAILY Discontinued Entresto 49-51 mg tablet 1 tab PO BID Discharge Orders: Discharge Order (Routine); Ordered 07/24/22 Ordered By: Santino Mata/Other Patient Handouts: Acute Bronchitis, What Is Gout, Treating Gout Attacks, ED Gout Diet Admission Data Admit Date/Time: 07/22/22 15:46 Attending Provider: Santino Granados Admit Provider: Roscoe Farias Primary Care Provider: Linn Vazquez Other Providers: Roscoe Farias Other Interventions: Discharge Summary Assessment (RN) Last Done: 07/24/22 16:23 Coding Level of Care Code 56573 INP/OBS DISCH >30 MIN Diagnoses Gouty arthritis of right foot M10.9 Acute bronchitis J20.9 EVIE (acute kidney injury) N17.9 Skin lesion L98.9 Hypotension I95.9 HFrEF (heart failure with reduced ejection fraction) I50.20 CKD (chronic kidney disease) stage 3, GFR 30-59 ml/min N18.30 Obstructive sleep apnea treated with continuous positive airway pressure (CPAP) G47.33; Z99.89 Atrial flutter I48.92 Atrial flutter type: unspecified Anxiety F41.9
== END 2022-07-24 16:49 | disposition home or self-care (01) ==
LOC: 4W 10:29 → ED 10:29 → SUATTDRO 15:46 → 4W 17:41

== ENCOUNTER 2022-08-14 07:44 | Observation (INO) ==
--- NOTE | 2022-08-14 08:00 | Emergency Department Note ---
History of Present Illness General Chief complaint: Illness Time Seen by Provider: 08/14/22 07:54 Source: patient, EMS, RN notes reviewed and old records reviewed (I have reviewed outpatient visit notes) Mode of arrival: ambulatory Limitations: no limitations History of Present Illness This patient comes in brought in by EMS after having multiple different complaints. He says he had right-sided abdominal pain in the right mid abdomen although his symptoms seem to be going on from either 3 days or 2 weeks. He is a somewhat poor historian. He is also been having pain in his right wrist and right foot. He was told he had gout. He has had no redness or warmth. No fever or chills he continues to cough over the last couple weeks. He has some greenish phlegm at times chest pain with coughing only. No fall or trauma. He said he tested negative for COVID a week ago. His is also has a cough. When asked him his worst symptom today he says is his cough. He does have history of cardiac disease. Home Medications Medication Instructions Recorded Confirmed Type sotalol 80 mg tablet 80 mg PO BID #180 tabs 09/27/21 08/03/22 Rx lorazepam 0.5 mg tablet 0.5 mg PO DAILY PRN anxiety #30 12/07/21 08/03/22 Rx tabs apixaban 5 mg tablet 5 mg PO BID #180 tabs 03/10/22 08/03/22 Rx aspirin 81 mg tablet,delayed 81 mg PO DAILY #90 tabs 03/10/22 08/03/22 Rx release atorvastatin 20 mg tablet 20 mg PO DAILY #90 tabs 03/10/22 08/03/22 Rx bumetanide 1 mg tablet 1 mg PO DAILY #90 tabs 03/10/22 08/03/22 Rx pantoprazole 40 mg tablet,delayed 40 mg PO DAILY #90 tabs 03/10/22 08/03/22 Rx release potassium chloride 10 mEq 20 meq PO DAILY #90 caps 03/10/22 08/03/22 Rx capsule,extended release citalopram 20 mg tablet 20 mg PO DAILY 05/23/22 08/03/22 History empagliflozin 10 mg tablet 10 mg PO DAILY #30 tabs 06/28/22 08/03/22 Rx (Jardiance) amoxicillin 500 mg capsule 2,000 mg PO DIRECTED PRN PRIOR 07/22/22 08/03/22 History TO DENTAL APPT. gabapentin 600 mg tablet 600 mg PO BID 07/22/22 08/03/22 History metoprolol succinate 50 mg 25 mg PO DAILY 07/22/22 08/03/22 History tablet,extended release 24 hr nitroglycerin 0.4 mg sublingual 0.4 mg sublingual DIRECTED PRN 07/22/22 08/03/22 History tablet Chest Pain ipratropium 20 mcg-albuterol 100 1 puff inhalation Q6H PRN 07/24/22 08/03/22 Rx mcg/actuation mist for inhalation cough/wheeze/shortness of breath (Combivent Respimat) #4 grams sacubitril 24 mg-valsartan 26 mg 1 tab PO BID 08/01/22 08/03/22 History tablet benzonatate 200 mg capsule 200 mg PO TID PRN cough #30 caps 08/03/22 08/03/22 Rx cetirizine 10 mg tablet (Allergy 10 mg PO DAILY #30 tabs 08/03/22 08/03/22 Rx Relief (cetirizine)) fluticasone propionate 50 1 spray intranasal BID #16 grams 08/03/22 08/03/22 Rx mcg/actuation nasal spray,suspension (Flonase Allergy Relief) zolpidem 10 mg tablet 5 - 10 mg PO HS PRN insomnia #30 08/12/22 Rx tabs Allergies Allergy/AdvReac Type Severity Reaction Status Date / Time heparin Allergy Severe CAUSES HIT Verified 08/03/22 16:55 silver AdvReac Intermediate TOPICAL - Verified 08/03/22 16:55 BURNING, PAIN Past Med/Surg History Medical History Acute bronchitis EVIE (acute kidney injury) Anxiety Atrial flutter CKD (chronic kidney disease) stage 3, GFR 30-59 ml/min GERD (gastroesophageal reflux disease) Gouty arthritis of right foot HFrEF (heart failure with reduced ejection fraction) History of basal cell carcinoma Hypotension Insomnia Obstructive sleep apnea treated with continuous positive airway pressure (CPAP) Paroxysmal ventricular tachycardia (11/01/10) Phantom limb Skin lesion Surgical History S/P below knee amputation L leg 2012 S/P quadruple vessel bypass 2009, in verbena Family History Denies family history of Ovarian cancer Prostate cancer Breast cancer Colorectal cancer Social History Smoking Status: Former smoker Tobacco Type: Cigarettes Cigarettes Per Day: 20; Smoking End Date: 2004; Second Hand Exposure: No; Do You Dip or Chew Tobacco: No; Tobacco Cessation Education Requested by Patient: No Hx Alcohol Use: No Hx Substance Use: No Preferred Language: Bangladeshi Communication Ability: Effective Communication Ability Comment: hard of hearing [employer] Work[employer] Required: No Beliefs That Will Affect Care: None marital status: Current Living Situation: Spouse current occupational status: retired Other Information That Helps Us Care for You: No Feels Safe at Home: Yes Safety Concerns: Feels Safe At This Time caffeine: Yes Dental Care, Regularly: Yes Seatbelt Use: always Sunscreen Use: Yes Assistive Devices: Cane, CPAP, Glasses, Special Shoe and Walker Review of Systems A total of 10 systems reviewed and were otherwise negative Physical Exam Vital Signs Vital Signs - 24 hr 08/14/22 07:44 08/14/22 07:44 08/14/22 08:14 Temperature 37.6 C H Temperature Source Oral Pulse Rate 78 Pulse Rate [Right Finger] 76 Respiratory Rate 16 20 Respiratory Effort / Characteristics Non-Labored Non-Labored Respiratory Depth Normal Normal Blood Pressure 98/63 L Blood Pressure [Left Arm] 103/32 L Blood Pressure Mean 74 Blood Pressure Mean [Left Arm] 55 Pulse Oximetry 95 95 94 Oxygen Delivery Method Room Air Room Air Nasal Cannula Oxygen Flow Rate 2 Sepsis Recent Fever Within 48 Hours No Sepsis New/Unexplained Change in Mental Status N/A Sepsis Action Taken by Nursing No Action Required 08/14/22 08:10 08/14/22 08:10 08/14/22 08:05 Temperature Temperature Source Pulse Rate 76 76 Pulse Rate [Right Finger] Respiratory Rate Respiratory Effort / Characteristics Respiratory Depth Blood Pressure Blood Pressure [Left Arm] Blood Pressure Mean Blood Pressure Mean [Left Arm] Pulse Oximetry 87 L 95 Oxygen Delivery Method Room Air Nasal Cannula Oxygen Flow Rate 2 Sepsis Recent Fever Within 48 Hours Sepsis New/Unexplained Change in Mental Status Sepsis Action Taken by Nursing 08/14/22 08:29 08/14/22 08:42 08/14/22 08:59 Temperature Temperature Source Pulse Rate Pulse Rate [Right Finger] 72 Respiratory Rate 16 Respiratory Effort / Characteristics Non-Labored Spontaneous Non-Labored Respiratory Depth Normal Blood Pressure Blood Pressure [Left Arm] 117/80 Blood Pressure Mean Blood Pressure Mean [Left Arm] 92 Pulse Oximetry 97 95 Oxygen Delivery Method Nebulizer Nasal Cannula Oxygen Flow Rate 4 Sepsis Recent Fever Within 48 Hours Sepsis New/Unexplained Change in Mental Status Sepsis Action Taken by Nursing 08/14/22 09:00 08/14/22 09:27 08/14/22 09:28 Temperature Temperature Source Pulse Rate 64 Pulse Rate [Right Finger] 72 64 Respiratory Rate 16 16 Respiratory Effort / Characteristics Non-Labored Non-Labored Respiratory Depth Normal Normal Blood Pressure Blood Pressure [Left Arm] 97/62 L 93/56 L Blood Pressure Mean Blood Pressure Mean [Left Arm] 73 68 Pulse Oximetry 95 94 94 Oxygen Delivery Method Nasal Cannula Nasal Cannula Nasal Cannula Oxygen Flow Rate 4 2 2 Sepsis Recent Fever Within 48 Hours Sepsis New/Unexplained Change in Mental Status Sepsis Action Taken by Nursing 08/14/22 10:42 08/14/22 11:31 08/14/22 11:41 Temperature Temperature Source Pulse Rate 76 Pulse Rate [Right Finger] 64 74 Respiratory Rate 20 18 Respiratory Effort / Characteristics Non-Labored Respiratory Depth Normal Blood Pressure Blood Pressure [Left Arm] 97/60 L 115/74 Blood Pressure Mean Blood Pressure Mean [Left Arm] 72 87 Pulse Oximetry 94 95 Oxygen Delivery Method Nasal Cannula Room Air Oxygen Flow Rate Sepsis Recent Fever Within 48 Hours Sepsis New/Unexplained Change in Mental Status Sepsis Action Taken by Nursing General: Well developed well nourished older male who is coughing intermittently but in no acute respiratory distress, breathing comfortably on room air. Normal speech HEENT: Normal cephalic atraumatic. Pupils are equal round and reactive to light. Extraocular movements are intact. Oropharynx is pink with moist mucous membranes. No swelling of the mouth lips or tongue. Neck: Supple with a midline trachea. No meningeal signs or stiffness, no JVD or bruits. No Stridor. Chest: Clear to auscultation bilaterally. No wheezes or rhonchi. No increased work of breathing. Heart: Regular rate and rhythm without murmurs or gallops. Abdomen: Soft nontender, nondistended without rebound guarding or rigidity. Extremities: No cyanosis clubbing or edema. No calf tenderness or assymetry. He does have swelling of the right wrist on the dorsal aspect is not red or warm. The foot is not red or warm. He does have a prosthetic limb on the left lower extremity. He does appear to have what looks like a tophi on his right great toe Spine/Back. Non tender to palpation. No CVA tenderness Skin: Good turgor without rashes. Neurologic exam: Cranial nerves two through 12 are intact. Motor and sensation are intact and symmetrical throughout. Course Administered Medications Pantoprazole Sodium 40 mg/ (Syringe) 10 mls @ 5 mls/min IV DAILY@1100 SKYLAR Stop: 09/13/22 12:59 Last Admin: 08/14/22 13:36 Dose: 5 mls/min Documented By: CHRIS Metronidazole (Flagyl) 500 mg in 100 mls @ 100 mls/hr IV Q8H SKYLAR Stop: 08/24/22 12:59 Last Infusion: 08/14/22 14:37 Dose: 0 mls/hr Documented By: Admin: 08/14/22 13:37 Dose: 100 mls/hr Documented By: CHRIS Ipratropium [place] (Ipratropium [place] Neb Soln 0.02% 2.5 Ml Vial) 0.5 mg INH Q6R SKYLAR Stop: 09/13/22 12:59 Last Admin: 08/14/22 14:34 Dose: 0.5 mg Documented By: [id number] Levalbuterol HCl (Levalbuterol Hcl 0.63 Mg/3 Ml Neb) 0.63 mg NEB Q6R SKYLAR Stop: 09/13/22 12:59 Last Admin: 08/14/22 14:34 Dose: 0.63 mg Documented By: [id number] Metoprolol Succinate (Metoprolol Succ 25mg Ext Rel Tab) 25 mg PO DAILY SKYLAR Stop: 09/13/22 13:14 Last Admin: 08/14/22 14:27 Dose: 25 mg Documented By: CHRIS Morphine Sulfate (Morphine Sulfate 4 Mg/Ml 1 Ml Carp\Vial) 4 mg IV Q4H PRN PRN Reason: Pain Stop: 08/28/22 12:35 Last Admin: 08/14/22 14:28 Dose: 4 mg Documented By: CHRIS Discontinued Medications Albuterol (Albuterol 0.083% Nebu Soln 3 Ml Vial) 2.5 mg NEB NOW STA; Protocol Stop: 08/14/22 08:26 Last Admin: 08/14/22 08:35 Dose: 2.5 mg Documented By: EDITH Colchicine (Colchicine 0.6 Mg Tab) 1.2 mg PO NOW ONE Stop: 08/14/22 11:52 Last Admin: 08/14/22 13:36 Dose: 1.2 mg Documented By: CHRIS Cefepime HCl (Maxipime) 2,000 mg in 20 mls @ 5 mls/min IV NOW STA; Protocol Stop: 08/14/22 10:39 Last Admin: 08/14/22 10:54 Dose: 5 mls/min Documented By: EDITH Metronidazole (Flagyl) 500 mg in 100 mls @ 100 mls/hr IV NOW STA Stop: 08/14/22 12:36 Last Admin: 08/14/22 14:37 Dose: Not Given Documented By: CHRIS Methylprednisolone 60 mg/ (Syringe) 0.96 mls @ 1.5 mls/min IV ONE ONE Stop: 08/14/22 13:16 Last Admin: 08/14/22 13:36 Dose: 1.5 mls/min Documented By: CHRIS Methylprednisolone (Methylprednisolone 125 Mg/2 Ml Vial) 60 mg IV NOW STA Stop: 08/14/22 11:57 Last Admin: 08/14/22 14:37 Dose: Not Given Documented By: CHRIS Morphine Sulfate (Morphine Sulfate 2 Mg/Ml Carp) 2 mg IV NOW STA Stop: 08/14/22 08:40 Last Admin: 08/14/22 08:43 Dose: 2 mg Documented By: EDITH Morphine Sulfate (Morphine Sulfate 2 Mg/Ml Carp) 2 mg IV NOW STA Stop: 08/14/22 11:37 Last Admin: 08/14/22 13:13 Dose: 2 mg Documented By: CHRIS Ondansetron HCl (Ondansetron Inj 2 Mg/Ml 2 Ml Vial) 4 mg IV NOW STA Stop: 08/14/22 08:40 Last Admin: 08/14/22 08:43 Dose: 4 mg Documented By: EDITH Sotalol HCl (Sotalol Hcl 80 Mg Tab) 80 mg PO NOW STA Stop: 08/14/22 11:36 Last Admin: 08/14/22 13:09 Dose: 80 mg Documented By: CHRIS Medical Decision Making Differential Diagnosis Cough, bronchitis, pneumonia, cardiac disease, intra-abdominal process, gallbladder or appendicitis, COVID, electrolyte or metabolic abnormality, infectious, gout Medical Records Attestation: I reviewed the patient's medical records. Home Medications Current Medication List: was personally reviewed by me Laboratory Data Attestation: I reviewed the patient's lab results. 08/14/22 08:03 08/14/22 08:03 Lab Results 08/14/22 08/14/22 08/14/22 Range/Units 08:03 08:03 08:03 WBC 7.61 (4.8-10.8) K/ul RBC 4.49 L (4.70-6.10) M/uL Hgb 13.5 L (14.0-18.0) g/dl Hct 41.0 L (42.0-52.0) % MCV 91.3 (80.0-100.0) fL MCH 30.1 (25.0-34.0) pg MCHC 32.9 (32.0-36.0) g/dL RDW Std Deviation 45.6 (36.4-46.3) fL RDW Coeff of Faby 13.5 (11.5-14.5) % Plt Count 135 (130-400) K/uL MPV 11.0 (9.4-12.4) fL Immature Gran % (Auto) 0.3 % Neut % (Auto) 82.2 % Lymph % (Auto) 7.1 % [place] % (Auto) 8.9 % Eos % (Auto) 1.2 % Baso % (Auto) 0.3 % Neut # (Auto) 6.26 (1.40-6.50) K/uL Lymph # (Auto) 0.54 L (1.2-3.4) K/uL [place] # (Auto) 0.68 H (0.11-0.59) K/uL Eos # (Auto) 0.09 (0-0.50) K/uL Baso # (Auto) 0.02 (0-0.2) K/uL Immature Gran # (Auto) 0.02 (0.01-0.20) K/uL ESR (0-20) mm/hr PT 12.1 H (9.0-12.0) Seconds INR 1.1 (0.9-1.1) APTT 32.3 H (21.0-31.0) Seconds PTT Ratio 1.2 Sodium 137 (136-145) mmol/L Potassium 4.3 (3.5-5.1) mmol/L Chloride 100 (98-107) mmol/L Carbon Dioxide 27 (21-32) mmol/L Anion Gap 10 (3-11) BUN 28 H (6-23) mg/dl Creatinine 1.82 H (0.6-1.4) mg/dl Est Cr Clr Drug Dosing 40.2 ml/min Est GFR ( Amer) 41.8 ml/min Est GFR (Non-Af Amer) 36.0 ml/min BUN/Creatinine Ratio 15.4 (10-20) Glucose 102 H (70-99(Fasting)) mg/dl Lactate (0.4-2.0) mmol/L Uric Acid 8.4 H (2.6-7.2) mg/dl Calcium 8.9 (8.6-10.3) mg/dl Magnesium 2.0 (1.7-2.4) mg/dl Total Bilirubin 2.8 H (0.2-1.0) mg/dl AST 9 L (13-39) U/L ALT 6 L (7-52) U/L Alkaline Phosphatase 82 (34-104) U/L Troponin I High Sens 22.3 H (0-20) pg/ml C-Reactive Protein 21.38 H (0-0.5) mg/dl Total Protein 6.7 (6.0-8.3) gm/dl Albumin 3.8 (3.4-5.0) gm/dl Globulin 2.9 (2.5-4.0) gm/dl Albumin/Globulin Ratio 1.3 (0.9-2) Lipase 6 L (11-82) U/L Procalcitonin (0-0.5) ng/ml Adenovirus (PCR) (NotDetected) B. pertussis DNA (PCR) (NotDetected) B.parapertussis DNA PCR (NotDetected) C. pneumoniae DNA (PCR) (NotDetected) Coronavirus OC43 (PCR) (NotDetected) Coronavirus HKU1 (PCR) (NotDetected) Coronavirus 229E (PCR) (NotDetected) SARS-CoV-2 (PCR) (NotDetected) Coronavirus NL63 (PCR) (NotDetected) Human Metapneumovir PCR (NotDetected) Influenza Type A (PCR) (NotDetected) Influenza Type B (PCR) (NotDetected) M. pneumoniae (PCR) (NotDetected) Parainfluenza 1 (PCR) (NotDetected) Parainfluenza 2 (PCR) (NotDetected) Parainfluenza 3 (PCR) (NotDetected) Parainfluenza 4 (PCR) (NotDetected) RSV (PCR) (NotDetected) Entero/Rhino (PCR) (NotDetected) SARS-CoV-2, RNA, NAAT (NEGATIVE) 08/14/22 08/14/22 08/14/22 Range/Units 08:03 08:03 08:03 WBC (4.8-10.8) K/ul RBC (4.70-6.10) M/uL Hgb (14.0-18.0) g/dl Hct (42.0-52.0) % MCV (80.0-100.0) fL MCH (25.0-34.0) pg MCHC (32.0-36.0) g/dL RDW Std Deviation (36.4-46.3) fL RDW Coeff of Faby (11.5-14.5) % Plt Count (130-400) K/uL MPV (9.4-12.4) fL Immature Gran % (Auto) % Neut % (Auto) % Lymph % (Auto) % [place] % (Auto) % Eos % (Auto) % Baso % (Auto) % Neut # (Auto) (1.40-6.50) K/uL Lymph # (Auto) (1.2-3.4) K/uL [place] # (Auto) (0.11-0.59) K/uL Eos # (Auto) (0-0.50) K/uL Baso # (Auto) (0-0.2) K/uL Immature Gran # (Auto) (0.01-0.20) K/uL ESR 76 H (0-20) mm/hr PT (9.0-12.0) Seconds INR (0.9-1.1) APTT (21.0-31.0) Seconds PTT Ratio Sodium (136-145) mmol/L Potassium (3.5-5.1) mmol/L Chloride (98-107) mmol/L Carbon Dioxide (21-32) mmol/L Anion Gap (3-11) BUN (6-23) mg/dl Creatinine (0.6-1.4) mg/dl Est Cr Clr Drug Dosing ml/min Est GFR ( Amer) ml/min Est GFR (Non-Af Amer) ml/min BUN/Creatinine Ratio (10-20) Glucose (70-99(Fasting)) mg/dl Lactate (0.4-2.0) mmol/L Uric Acid (2.6-7.2) mg/dl Calcium (8.6-10.3) mg/dl Magnesium Cancelled (1.7-2.4) mg/dl Total Bilirubin (0.2-1.0) mg/dl AST (13-39) U/L ALT (7-52) U/L Alkaline Phosphatase (34-104) U/L Troponin I High Sens (0-20) pg/ml C-Reactive Protein (0-0.5) mg/dl Total Protein (6.0-8.3) gm/dl Albumin (3.4-5.0) gm/dl Globulin (2.5-4.0) gm/dl Albumin/Globulin Ratio (0.9-2) Lipase (11-82) U/L Procalcitonin 0.18 (0-0.5) ng/ml Adenovirus (PCR) (NotDetected) B. pertussis DNA (PCR) (NotDetected) B.parapertussis DNA PCR (NotDetected) C. pneumoniae DNA (PCR) (NotDetected) Coronavirus OC43 (PCR) (NotDetected) Coronavirus HKU1 (PCR) (NotDetected) Coronavirus 229E (PCR) (NotDetected) SARS-CoV-2 (PCR) (NotDetected) Coronavirus NL63 (PCR) (NotDetected) Human Metapneumovir PCR (NotDetected) Influenza Type A (PCR) (NotDetected) Influenza Type B (PCR) (NotDetected) M. pneumoniae (PCR) (NotDetected) Parainfluenza 1 (PCR) (NotDetected) Parainfluenza 2 (PCR) (NotDetected) Parainfluenza 3 (PCR) (NotDetected) Parainfluenza 4 (PCR) (NotDetected) RSV (PCR) (NotDetected) Entero/Rhino (PCR) (NotDetected) SARS-CoV-2, RNA, NAAT (NEGATIVE) 08/14/22 08/14/22 08/14/22 Range/Units 08:04 08:31 10:27 WBC (4.8-10.8) K/ul RBC (4.70-6.10) M/uL Hgb (14.0-18.0) g/dl Hct (42.0-52.0) % MCV (80.0-100.0) fL MCH (25.0-34.0) pg MCHC (32.0-36.0) g/dL RDW Std Deviation (36.4-46.3) fL RDW Coeff of Faby (11.5-14.5) % Plt Count (130-400) K/uL MPV (9.4-12.4) fL Immature Gran % (Auto) % Neut % (Auto) % Lymph % (Auto) % [place] % (Auto) % Eos % (Auto) % Baso % (Auto) % Neut # (Auto) (1.40-6.50) K/uL Lymph # (Auto) (1.2-3.4) K/uL [place] # (Auto) (0.11-0.59) K/uL Eos # (Auto) (0-0.50) K/uL Baso # (Auto) (0-0.2) K/uL Immature Gran # (Auto) (0.01-0.20) K/uL ESR (0-20) mm/hr PT (9.0-12.0) Seconds INR (0.9-1.1) APTT (21.0-31.0) Seconds PTT Ratio Sodium (136-145) mmol/L Potassium (3.5-5.1) mmol/L Chloride (98-107) mmol/L Carbon Dioxide (21-32) mmol/L Anion Gap (3-11) BUN (6-23) mg/dl Creatinine (0.6-1.4) mg/dl Est Cr Clr Drug Dosing ml/min Est GFR ( Amer) ml/min Est GFR (Non-Af Amer) ml/min BUN/Creatinine Ratio (10-20) Glucose (70-99(Fasting)) mg/dl Lactate 1.4 (0.4-2.0) mmol/L Uric Acid (2.6-7.2) mg/dl Calcium (8.6-10.3) mg/dl Magnesium (1.7-2.4) mg/dl Total Bilirubin (0.2-1.0) mg/dl AST (13-39) U/L ALT (7-52) U/L Alkaline Phosphatase (34-104) U/L Troponin I High Sens (0-20) pg/ml C-Reactive Protein (0-0.5) mg/dl Total Protein (6.0-8.3) gm/dl Albumin (3.4-5.0) gm/dl Globulin (2.5-4.0) gm/dl Albumin/Globulin Ratio (0.9-2) Lipase (11-82) U/L Procalcitonin (0-0.5) ng/ml Adenovirus (PCR) Not Detected (NotDetected) B. pertussis DNA (PCR) Not Detected (NotDetected) B.parapertussis DNA PCR Not Detected (NotDetected) C. pneumoniae DNA (PCR) Not Detected (NotDetected) Coronavirus OC43 (PCR) Not Detected (NotDetected) Coronavirus HKU1 (PCR) Not Detected (NotDetected) Coronavirus 229E (PCR) Not Detected (NotDetected) SARS-CoV-2 (PCR) Not Detected (NotDetected) Coronavirus NL63 (PCR) Not Detected (NotDetected) Human Metapneumovir PCR DETECTED A* (NotDetected) Influenza Type A (PCR) Not Detected (NotDetected) Influenza Type B (PCR) Not Detected (NotDetected) M. pneumoniae (PCR) Not Detected (NotDetected) Parainfluenza 1 (PCR) Not Detected (NotDetected) Parainfluenza 2 (PCR) Not Detected (NotDetected) Parainfluenza 3 (PCR) Not Detected (NotDetected) Parainfluenza 4 (PCR) Not Detected (NotDetected) RSV (PCR) Not Detected (NotDetected) Entero/Rhino (PCR) Not Detected (NotDetected) SARS-CoV-2, RNA, NAAT NEGATIVE (NEGATIVE) 08/14/22 Range/Units 10:27 WBC (4.8-10.8) K/ul RBC (4.70-6.10) M/uL Hgb (14.0-18.0) g/dl Hct (42.0-52.0) % MCV (80.0-100.0) fL MCH (25.0-34.0) pg MCHC (32.0-36.0) g/dL RDW Std Deviation (36.4-46.3) fL RDW Coeff of Faby (11.5-14.5) % Plt Count (130-400) K/uL MPV (9.4-12.4) fL Immature Gran % (Auto) % Neut % (Auto) % Lymph % (Auto) % [place] % (Auto) % Eos % (Auto) % Baso % (Auto) % Neut # (Auto) (1.40-6.50) K/uL Lymph # (Auto) (1.2-3.4) K/uL [place] # (Auto) (0.11-0.59) K/uL Eos # (Auto) (0-0.50) K/uL Baso # (Auto) (0-0.2) K/uL Immature Gran # (Auto) (0.01-0.20) K/uL ESR (0-20) mm/hr PT (9.0-12.0) Seconds INR (0.9-1.1) APTT (21.0-31.0) Seconds PTT Ratio Sodium (136-145) mmol/L Potassium (3.5-5.1) mmol/L Chloride (98-107) mmol/L Carbon Dioxide (21-32) mmol/L Anion Gap (3-11) BUN (6-23) mg/dl Creatinine (0.6-1.4) mg/dl Est Cr Clr Drug Dosing ml/min Est GFR ( Amer) ml/min Est GFR (Non-Af Amer) ml/min BUN/Creatinine Ratio (10-20) Glucose (70-99(Fasting)) mg/dl Lactate (0.4-2.0) mmol/L Uric Acid (2.6-7.2) mg/dl Calcium (8.6-10.3) mg/dl Magnesium (1.7-2.4) mg/dl Total Bilirubin (0.2-1.0) mg/dl AST (13-39) U/L ALT (7-52) U/L Alkaline Phosphatase (34-104) U/L Troponin I High Sens 13.2 D (0-20) pg/ml C-Reactive Protein (0-0.5) mg/dl Total Protein (6.0-8.3) gm/dl Albumin (3.4-5.0) gm/dl Globulin (2.5-4.0) gm/dl Albumin/Globulin Ratio (0.9-2) Lipase (11-82) U/L Procalcitonin (0-0.5) ng/ml Adenovirus (PCR) (NotDetected) B. pertussis DNA (PCR) (NotDetected) B.parapertussis DNA PCR (NotDetected) C. pneumoniae DNA (PCR) (NotDetected) Coronavirus OC43 (PCR) (NotDetected) Coronavirus HKU1 (PCR) (NotDetected) Coronavirus 229E (PCR) (NotDetected) SARS-CoV-2 (PCR) (NotDetected) Coronavirus NL63 (PCR) (NotDetected) Human Metapneumovir PCR (NotDetected) Influenza Type A (PCR) (NotDetected) Influenza Type B (PCR) (NotDetected) M. pneumoniae (PCR) (NotDetected) Parainfluenza 1 (PCR) (NotDetected) Parainfluenza 2 (PCR) (NotDetected) Parainfluenza 3 (PCR) (NotDetected) Parainfluenza 4 (PCR) (NotDetected) RSV (PCR) (NotDetected) Entero/Rhino (PCR) (NotDetected) SARS-CoV-2, RNA, NAAT (NEGATIVE) Imaging Data Attestation: I personally reviewed and interpreted this imaging study as follows: My Impression: Chest x-raycardiomegaly with some mild central vascular congestion but no focal infiltrate or pneumothorax Right wrist x-rayno bony abnormality or acute fracture seen Radiologist's Impression: Chest X-Ray 08/14/22 07:54 XR chest 1V portable CLINICAL HISTORY: Cough. COMPARISON STUDY: Chest CT March 30, 2022 and chest radiograph July 23, 2022. FINDINGS: No pneumothorax or pleural effusion is present. A left subclavian pacer/AICD is in place. There are median sternotomy wires. Cardiomegaly is unchanged. There is no evidence for overt pulmonary edema. There is possible left basilar opacity. IMPRESSION: 1. Possible left basilar opacity. Artifact is favored however consolidation could appear similar. 2. Cardiomegaly without evidence for pulmonary edema. ACT 112: Negative or not required by law. Electronically signed by: Guillermo Braden M.D. 08/14/2022 9:04 AM Wrist X-Ray 08/14/22 08:00 XR wrist RT min 3V routine CLINICAL HISTORY: wrist pain/swelling COMPARISON: None FINDINGS: Alignment of the right wrist is anatomic. There is no acute fracture. There is no suspicious osseous lesion. No erosive changes are identified. Dorsal hand and wrist soft tissue swelling is noted on lateral projection. Moderate degenerative changes within the right wrist are present. Vascular calcification is incidentally noted. IMPRESSION: 1. No acute fracture or dislocation within the right wrist. 2. Dorsal hand and wrist soft tissue swelling. 3. Moderate degenerative changes within the right wrist. ACT 112: Negative or not required by law. Electronically signed by: Guillermo Braden M.D. 08/14/2022 9:06 AM Abdomen/Pelvis CT 08/14/22 09:20 CT OF THE ABDOMEN AND PELVIS WITHOUT CONTRAST CLINICAL HISTORY: Right-sided abdominal pain. COMPARISON STUDY: CT of the abdomen and pelvis July 04, 2018 and renal ultrasound March 13, 2020. TECHNIQUE: Axial images of the abdomen and pelvis were obtained without IV contrast. Images were reviewed in the axial, sagittal, and coronal planes. Automated exposure control was utilized for the study. A dose lowering technique was utilized adhering to the principles of ALARA. FINDINGS: Right lower lobe airspace opacity with bronchial wall thickening and mild mucus plugging is noted. This is better depicted on the chest CT which will be reported separately. There are several old right-sided rib fractures. Evaluation of the abdomen and pelvis is suboptimal on this unenhanced exam. Multiple hypodense hepatic lesions are similar to CT of July 04, 2018. These favor cysts. There is mild dilatation of the common bile duct, measuring approximately 1 cm. There is no pancreatic ductal dilatation. There are several gallstones within the gallbladder. The gallbladder is mildly distended. There may be minimal pericholecystic stranding. Spleen, adrenal glands and pancreas are unremarkable. There is no peripancreatic stranding. There is no evidence for a bowel obstruction. Colonic diverticulosis is noted. No evidence for acute diverticulitis. The appendix is normal. Small fat-containing umbilical hernia is present. There is no ascites. No lymphadenopathy. No acute fractures are present within the visualized skeletal structures. Grade I anterolisthesis of L5 on S1 due to bilateral L5 pars defect is unchanged. IMPRESSION: 1. Cholelithiasis with moderate gallbladder distention and possible trace pericholecystic stranding. Acute cholecystitis cannot be excluded. Right upper quadrant ultrasound could be obtained for further evaluation. 2. Mild dilatation of the common bile duct which could be correlated with liver function tests. 3. Right lower lobe airspace opacity which favors pneumonia. 4. No evidence for a bowel obstruction. Colonic diverticulosis without evidence for acute diverticulitis. ACT 112: Negative or not required by law. Electronically signed by: Guillermo Braden M.D. 08/14/2022 10:[address] 08/14/22 09:20 CT OF THE CHEST WITHOUT IV CONTRAST CLINICAL HISTORY: Cough. Shortness of breath. COMPARISON STUDY: Chest CTs December 09, 2017 and March 30, 2022 and chest radiograph performed earlier today TECHNIQUE: Axial images of the chest were obtained without IV contrast. Images were reviewed in the axial, sagittal, and coronal planes. IV contrast was not administered for this examination. Automated exposure control was utilized for the study. A dose lowering technique was utilized adhering to the principles of ALARA. FINDINGS: Left subclavian pacer/AICD is in place. There are median sternotomy wires and postoperative findings from bypass grafting. Several mildly enlarged mediastinal lymph nodes are noted. Index subcarinal lymph node on axial image 179 of 336 measures 1.4 cm in short axis diameter. This is similar to CT of December 09, 2017. There is no pericardial effusion. Moderate cardiomegaly and extensive coronary artery calcification are noted. No pneumothorax or pleural effusion is present. Emphysema. There has been interval development of moderate right lower lobe airspace opacity since chest CT of March 30, 2022. There is associated bronchial wall thickening with mild mucus plugging. There is also minimal right upper lobe airspace opacity. A few pulmonary nodules measuring up to 8 mm are similar to CT of December 09, 2017. These are likely benign. Subpleural left upper lobe density on image [address] of December 09, 2017. This favors scarring. No fracture or suspicious lesion within the bony thorax is noted. The abdomen and pelvis CT will be reported separately. IMPRESSION: 1. Moderate right lower lobe airspace opacity and mild right upper lobe airspace opacity which has developed since chest CT of March 30, 2022. The findings represent an infectious process such as bronchopneumonia. Follow-up chest CT in 3 months to ensure resolution is recommended. 2. Emphysema. 3. Cardiomegaly and extensive coronary calcification. 4. No change in several pulmonary nodules measuring up to [address] of December 09, 2017. These are likely benign. ACT 112: Negative or not required by law. Electronically signed by: Guillermo Braden M.D. 08/14/2022 10:30 AM Liver Ultrasound 08/14/22 11:00 US liver CLINICAL HISTORY: RUQ US - assess for acute cholecystitis COMPARISON STUDY: CT of the abdomen and pelvis performed earlier today. Right upper quadrant ultrasound December 15, 2015. FINDINGS: This exam is compromised by suboptimal penetration. A few small hepatic cysts are present. Gallstones within the gallbladder are noted. The gallbladder is moderately distended. There is no gallbladder wall thickening. Equivocal sonographic Valdivia sign was elicited. The common bile duct is largely obscured as is the pancreas. There is no right hydronephrosis. IMPRESSION: 1. Cholelithiasis and moderate gallbladder distention. Possible sonographic Valdivia sign. These findings are equivocal for acute cholecystitis. A nuclear medicine hepatobiliary scan could be obtained for further evaluation. 2. Largely obscured common bile duct and pancreas. ACT 112: Negative or not required by law. Electronically signed by: Guillermo Braden M.D. 08/14/2022 12:21 PM ECG Data Attestation: I personally reviewed and interpreted this ECG as follows: Indication: + weakness Rate (beats per minute): 75 Rhythm: + other (Ventricular paced rhythm) ECG Intervals/blocks: + Normal QT ECG [place]: + Normal ECG ST segments: + Nonspecific ST abnormalities ECG Findings: no PACs or no PVCs Comparison ECG Date: from (07/22/22) Change: the following changes noted (Ventricular paced rhythm has replaced a dual chamber paced rhythm) MDM Narrative This patient comes in as described above he does have a constellation of symptoms with a cough abdominal pain and pain in his right foot and wrist he tells me he was diagnosed with gout recently. It may be that his abdominal pain is from coughing so much but given his history is significant work-up was done to evaluate him from an infectious cardiac pulmonary and other etiology standpoint. He was reassessed frequently. He has no fever or white count to suggest infection or sepsis. He has no significant anemia. His x-ray of his wrist is unremarkable. His creatinine is 1.8 so I did not feel he should be getting IV contrast. I did a CAT scan of the chest and abdomen without IV contrast. The CAT scan shows what appears to be pneumonia on the right. This could be causing his symptoms he was given cefepime 2 g IV his lactic acid is not elevated. His blood pressure has been running in in the high 90s although looking back through his chart he tends to run that way and his lactic acid is not elevated so I do not think he likely is septic. He was given cefepime 2 g IV. I was judicious with IV fluids given his significant cardiac/chronic CHF history. I did discuss the case with Dr. Santino Avalos the [facility] hospitalist who will be admitting/observing the patient for further inpatient treatment and evaluation. Also in the meantime the CT the abdomen report came back and showed possible cholecystitis with gallbladder abnormalities and CT. Dr. Avalos has ordered an ultrasound. The patient is already received antibiotics. This will need to be further evaluated as well in the hospital. His initial troponin was borderline elevated however follow-up troponin is trending downward and I do not think is likely cardiac. Continuous cardiac monitoring: Orders placed in EMR for continuous cardiac monitoring. Upon my evaluation the patient was noted to be a paced rhythm with a rate of 70 Impression & Plan Pneumonia, Acute cholecystitis, Gout, Pain in right wrist, Abdominal pain, Cough, Lab test negative for COVID-19 virus Discharge Plan Visit Data Chief Complaint: Illness ED Provider: Josue Curry Discharge Problem: Pneumonia, Acute cholecystitis, Gout, Pain in right wrist, Abdominal pain, Cough, Lab test negative for COVID-19 virus Patient Disposition: Admitted As Inpatient Discharge Instructions Interventions: ED Discharge Assessment Last Done: 08/14/22 12:19
[2022-08-14] MEDS ORDERED: ALBUTEROL 0.083% NEBU SOLN 3 ML VIAL NEB STA (08:25)
[2022-08-14] MEDS ORDERED: MoRPHine SULFATE 2 MG/ML CARP IV STA ×2 (08:39→11:36)
[2022-08-14] MEDS ORDERED: ONDANSETRON INJ 2 MG/ML 2 ML VIAL IV STA (08:39)
[2022-08-14 08:59] LABS: Basophils # (auto) 0.02 K/uL (0-0.2); Basophils % (auto) 0.3 %; Eosinophils # (auto) 0.09 K/uL (0-0.50); Eosinophils % (auto) 1.2 %; Hemoglobin 13.5 g/dl (14.0-18.0); Immature Granulocytes # (auto) 0.02 K/uL (0.01-0.20); Immature Granulocytes % (auto) 0.3 %; Lymphocytes # (auto) 0.54 K/uL (1.2-3.4); Lymphocytes % (auto) 7.1 %; Mean Corpuscular Hemoglobin 30.1 pg (25.0-34.0); Mean Corpuscular Hgb Conc 32.9 g/dL (32.0-36.0); Mean Corpuscular Volume 91.3 fL (80.0-100.0); Monocytes # (auto) 0.68 K/uL (0.11-0.59); Monocytes % (auto) 8.9 %; Neutrophils # (auto) 6.26 K/uL (1.40-6.50); Neutrophils % (auto) 82.2 %; Platelet Count 135 K/uL (130-400); RDW Coefficient of Variation 13.5 % (11.5-14.5); RDW Standard Deviation 45.6 fL (36.4-46.3); Red Blood Count 4.49 M/uL (4.70-6.10); White Blood Count 7.61 K/ul (4.8-10.8)
--- NOTE | 2022-08-14 09:06 | XRay Report ---
XR chest 1V portable CLINICAL HISTORY: Cough. COMPARISON STUDY: Chest CT March 30, 2022 and chest radiograph July 23, 2022. FINDINGS: No pneumothorax or pleural effusion is present. A left subclavian pacer/AICD is in place. T here are median sternotomy wires. Cardiomegaly is unchanged. There is no evidence for overt pulmonary edema. There is possible left basilar opacity. IMPRESSION: 1. Possible left basilar opacity. Artifact is favored however consolidation could appear similar. 2. Cardiomegaly without evidence for pulmonary edema. ACT 112: Negative or not required by law. Electronically signed by: Guillermo Braden M.D. 08/14/2022 9:04 AM
--- NOTE | 2022-08-14 09:07 | XRay Report ---
XR wrist RT min 3V routine CLINICAL HISTORY: wrist pain/swelling COMPARISON: None FINDINGS: Alignment of the right wrist is anatomic. There is no acute fracture. There is no suspicio us osseous lesion. No erosive changes are identified. Dorsal hand and wrist soft tissue swelling is n oted on lateral projection. Moderate degenerative changes within the right wrist are present. Vascula r calcification is incidentally noted. IMPRESSION: 1. No acute fracture or dislocation within the right wrist. 2. Dorsal hand and wrist soft tissue swelling. 3. Moderate degenerative changes within the right wrist. ACT 112: Negative or not required by law. Electronically signed by: Guillermo Braden M.D. 08/14/2022 9:06 AM
[2022-08-14 09:12] LABS: Albumin Globulin Ratio 1.3 (0.9-2); Albumin Level 3.8 gm/dl (3.4-5.0); BUN Creatinine Ratio 15.4 (10-20); Bilirubin,Total 2.8 mg/dl (0.2-1.0); Calcium 8.9 mg/dl (8.6-10.3); Creatinine Clr Calc Pharmacy 40.2 ml/min; Est GFR (African American) 41.8 ml/min; Globulin 2.9 gm/dl (2.5-4.0); Potassium 4.3 mmol/L (3.5-5.1); Total Protein 6.7 gm/dl (6.0-8.3); Uric Acid 8.4 mg/dl (2.6-7.2)
[2022-08-14 09:18] LABS: Troponin I High Sensitivity 22.3 pg/ml (0-20)
[2022-08-14 09:23] LABS: INR 1.1 (0.9-1.1); Partial Thromboplastin Ratio 1.2; Partial Thromboplastin Time 32.3 Seconds (21.0-31.0); Prothrombin Time 12.1 Seconds (9.0-12.0)
[2022-08-14 10:15] LABS: Adenovirus PCR Not Detected (NotDetected); Bordetella parapertussis PCR Not Detected (NotDetected); Bordetella pertussis PCR Not Detected (NotDetected); Chlamydia pneumoniae PCR Not Detected (NotDetected); Coronavirus 229E PCR Not Detected (NotDetected); Coronavirus CoV-2 (COVID19)PCR Not Detected (NotDetected); Coronavirus HKU1 PCR Not Detected (NotDetected); Coronavirus NL63 PCR Not Detected (NotDetected); Coronavirus OC43PCR Not Detected (NotDetected); Influenza A PCR Not Detected (NotDetected); Influenza B PCR Not Detected (NotDetected); Mycoplasma pneumoniae PCR Not Detected (NotDetected); Parainfluenza Virus 1 PCR Not Detected (NotDetected); Parainfluenza Virus 2 PCR Not Detected (NotDetected); Parainfluenza Virus 3 PCR Not Detected (NotDetected); Parainfluenza Virus 4 PCR Not Detected (NotDetected); Respiratory Syncytial VirusPCR Not Detected (NotDetected); Rhinovirus/Enterovirus PCR Not Detected (NotDetected)
[2022-08-14 10:19] LABS: Human Metapneumovirus PCR DETECTED (NotDetected)
--- NOTE | 2022-08-14 10:32 | CT Scan Report ---
CT OF THE CHEST WITHOUT IV CONTRAST CLINICAL HISTORY: Cough. Shortness of breath. COMPARISON STUDY: Chest CTs December 09, 2017 and March 30, 2022 and chest radiograph performed esau ier today TECHNIQUE: Axial images of the chest were obtained without IV contrast. Images were reviewed in the axial, sagittal, and coronal planes. IV contrast was not administered for this examination. Automat ed exposure control was utilized for the study. A dose lowering technique was utilized adhering to t he principles of ALARA. FINDINGS: Left subclavian pacer/AICD is in place. There are median sternotomy wires and postoperativ e findings from bypass grafting. Several mildly enlarged mediastinal lymph nodes are noted. Index sub carinal lymph node on axial image 179 of 336 measures 1.4 cm in short axis diameter. This is similar to CT of December 09, 2017. There is no pericardial effusion. Moderate cardiomegaly and extensive bailey ry artery calcification are noted. No pneumothorax or pleural effusion is present. Emphysema. There h as been interval development of moderate right lower lobe airspace opacity since chest CT of March 30, 2022. There is associated bronchial wall thickening with mild mucus plugging. There is also mini mal right upper lobe airspace opacity. A few pulmonary nodules measuring up to 8 mm are similar to CT of December 09, 2017. These are likely benign. Subpleural left upper lobe density on image 180 is uncha nged from CT of December 09, 2017. This favors scarring. No fracture or suspicious lesion within the bon y thorax is noted. The abdomen and pelvis CT will be reported separately. IMPRESSION: 1. Moderate right lower lobe airspace opacity and mild right upper lobe airspace opacity which has de veloped since chest CT of March 30, 2022. The findings represent an infectious process such as bro nchopneumonia. Follow-up chest CT in 3 months to ensure resolution is recommended. 2. Emphysema. 3. Cardiomegaly and extensive coronary calcification. 4. No change in several pulmonary nodules measuring up to [address] of December 09, 2017. These are likely benign. ACT 112: Negative or not required by law. Electronically signed by: Guillermo Braden M.D. 08/14/2022 10:30 AM
[2022-08-14] MEDS ORDERED: CEFEPIME 2,000 MG/20 ML VIAL IV STA (10:36)
--- NOTE | 2022-08-14 10:50 | History & Physical Report ---
Date of Service August 14, 2022 Assessment & Plan (1) Acute cholecystitis: Plan: US liver to confirm but either he has cholelithiasis causing his pain or a true infection. WBC without left shift and procalcitonin normal would argue against a true infection. Will cover with cefepime given in ER (switched to ceftriaxone) and metronidazole as he is a poor surgical candidate. Consult surgery depending on US results although given poor surgical candidate would be better to treat conservatively with antibiotics and low fat diet than surgery. Hold Eliquis (last dose /8 evening) in case of need for surgery. Would recommend cardiology consult prior to any surgery if necessary. Follow up blood cultures (2) Human metapneumovirus (hMPV) pneumonia: Plan: Suspect this is an acute infection as evidenced by recent loss of taste. Low suspicion of secondary bacterial infection given recent loss of taste suggests he is in acute phase of viral illness, only mild consolidative changes on CT, WBC and procalcitonin negative. No antibiotics recommended to cover for bacterial pneumonia however he is on antibiotics for acute debi and COPD exacerbation regardless Incentive spirometer Flutter valve Guaifenesin BID Dextromethorphan PRN for cough (3) Gout flare: Plan: Given only recently started having joint flare ups this is not a definitive diagnosis as not previously aspirated but he appears to have an inflammatory polyarthritis without prior diagnosis of autoimmune conditions since it improved with prednisone previously. ?related to dehydration after starting Jardiance. Uric acid level not particularly useful during acute flare ups, ideally can be measured on follow up as likely to need allopurinol once flare up resolved with colchicine coverage during initiation. eGFR 40.2 - will give colchicine and warned patient about diarrhea. Solu-medrol as below will also treat. Consult orthopedics to consider aspiration as did not perform this previously for confirmation of diagnosis (4) COPD exacerbation: Plan: Wheezing on exam. Presumed diagnosis of underlying COPD. Will need eventual PFTs as outpatient. No official diagnosis of COPD although he has had chronic bronchitis since March and emphysematous changes on CT - only thing that doesn't fit with COPD is his lack of improvement with Combivent given to him on prior discharge although duoneb here did help so perhaps he just needs a maintenance rather than rescue inhaler (ideally would get PFTs first). Suspect exacerbation in setting of metapneumovirus as above. Sputum culture Solu-Medrol 60mg IV now then 40mg IV daily - this will also help with gout flar e. Levalbuterol/ipratropium Nebs q6h, formoterol/budesonide NEB BID Doxycycline 100mg IV BID (5) Paroxysmal ventricular tachycardia: Plan: a. fib/flutter/sustained VT s/p ICD placement & multiple (6) ablations 2009- 2018; Last 09/2018 [facility] Continue sotalol - will give his AM dose now as he missed it this morning Mg level pending Aim K > 4 (6) Ischemic cardiomyopathy: Plan: Suspect can continue metoprolol succinate but will give his sotalol first and make sure his BP is stable before being given Hold Entresto acutely as his BP has been running low suspect due to infections as above. (7) Chronic systolic (congestive) heart failure: Plan: Currently appears euvolemic. Will hold his Bumex and Jardiance while NPO. (8) CAD (coronary artery disease), [place] coronary artery: Plan: Continue asa, atorvastatin Metoprolol as above Eliquis as above (9) CKD (chronic kidney disease) stage 3, GFR 30-59 ml/min: Plan: At baseline (10) GERD (gastroesophageal reflux disease): Plan: Switch pantoprazole to IV while NPO (11) Obstructive sleep apnea: Plan: May use own CPAP (12) Hypertension: (13) ICD (implantable cardioverter-defibrillator), biventricular, in situ: (14) Anxiety: Plan: Continue citalopram (15) Phantom limb: Plan: Continue gabapentin Plan VTE Prophylaxis - deferred pending on workup above may be able to restart on [place]quis Diet - NPO, except ice chips, sips and meds Disposition - admit to PCU Admission and Anticipated Discharge Date Admission Date: August 14, 2022 History of Present Illness Chief Complaint: Abdominal pain, joint swelling, cough Primary Care Provider: Linn Vazquez MD Ninfa Ruggiero is a 71 year old male who presents to the ER with right lower quadrant abdominal pain, right wrist and right ankle pain and swelling and cough. History taking somewhat difficult given patients multitude of symptoms and unclear timeframe. Abdominal pain: epigastric and RUQ abdomen, radiates to right side of his back, intermittently gets worse but never fully resolved since started, worse on palpation but no worse with eating. Chills for the last month. No fever, nausea, vomiting, change in bowels, diarrhea, constipation, melena or bright red blood in stool. Respiratory symptoms: chronic cough worse at night/evenings with associated shortness of breath going on since March but worse the last month. However, no worse since his last admission in July. During his last admission he had a workup including negative CXR for PNA and Biofire PCR. Associated chills with this timeframe but no fever. No nasal congestion, sinus pain, postnasal drip. He was discharged with Combivent inhaler for presumed COPD/acute bronchitis which he has been taking twice a day but he has not found this helpful.He has noticed loss of taste for the last two days. Inflammatory polyarthritis: started July 18 per prior H&P. He started Jardiance on 06/28 but no other med changes around this time. Admitted from July 22 - 2022 with right foot pain with initial concern for cellulitis but diagnosis changed to gouty arthritis although no aspiration was performed and no history of this but tophi present and classical appearance. NSAIDs avoided due to CKD and Eliquis use. Dramatic improvement with steroids and he was discharged on 7 days of prednisone. He reports his right foot was doing much better until he stopped the steroids and right foot swelling recurred just a few days after this getting progressively worse. He right wrist is also now significantly swollen for the last 3 days getting progressively worse. Allergies Allergy/AdvReac Type Severity Reaction Status Date / Time heparin Allergy Severe CAUSES HIT Verified 08/03/22 16:55 silver AdvReac Intermediate TOPICAL - Verified 08/03/22 16:55 BURNING, PAIN Home Medications Medication Instructions Recorded Confirmed Type sotalol 80 mg tablet 80 mg PO BID #180 tabs 09/27/21 08/03/22 Rx lorazepam 0.5 mg tablet 0.5 mg PO DAILY PRN anxiety #30 12/07/21 08/03/22 Rx tabs apixaban 5 mg tablet 5 mg PO BID #180 tabs 03/10/22 08/03/22 Rx aspirin 81 mg tablet,delayed 81 mg PO DAILY #90 tabs 03/10/22 08/03/22 Rx release atorvastatin 20 mg tablet 20 mg PO DAILY #90 tabs 03/10/22 08/03/22 Rx bumetanide 1 mg tablet 1 mg PO DAILY #90 tabs 03/10/22 08/03/22 Rx pantoprazole 40 mg tablet,delayed 40 mg PO DAILY #90 tabs 03/10/22 08/03/22 Rx release potassium chloride 10 mEq 20 meq PO DAILY #90 caps 03/10/22 08/03/22 Rx capsule,extended release citalopram 20 mg tablet 20 mg PO DAILY 05/23/22 08/03/22 History empagliflozin 10 mg tablet 10 mg PO DAILY #30 tabs 06/28/22 08/03/22 Rx (Jardiance) amoxicillin 500 mg capsule 2,000 mg PO DIRECTED PRN PRIOR 07/22/22 08/03/22 History TO DENTAL APPT. gabapentin 600 mg tablet 600 mg PO BID 07/22/22 08/03/22 History metoprolol succinate 50 mg 25 mg PO DAILY 07/22/22 08/03/22 History tablet,extended release 24 hr nitroglycerin 0.4 mg sublingual 0.4 mg sublingual DIRECTED PRN 07/22/22 08/03/22 History tablet Chest Pain ipratropium 20 mcg-albuterol 100 1 puff inhalation Q6H PRN 07/24/22 08/03/22 Rx mcg/actuation mist for inhalation cough/wheeze/shortness of breath (Combivent Respimat) #4 grams sacubitril 24 mg-valsartan 26 mg 1 tab PO BID 08/01/22 08/03/22 History tablet benzonatate 200 mg capsule 200 mg PO TID PRN cough #30 caps 08/03/22 08/03/22 Rx cetirizine 10 mg tablet (Allergy 10 mg PO DAILY #30 tabs 08/03/22 08/03/22 Rx Relief (cetirizine)) fluticasone propionate 50 1 spray intranasal BID #16 grams 08/03/22 08/03/22 Rx mcg/actuation nasal spray,suspension (Flonase Allergy Relief) zolpidem 10 mg tablet 5 - 10 mg PO HS PRN insomnia #30 08/12/22 Rx tabs Past Med/Surg History Medical History Acute bronchitis EVIE (acute kidney injury) Anxiety Atrial flutter CKD (chronic kidney disease) stage 3, GFR 30-59 ml/min GERD (gastroesophageal reflux disease) Gouty arthritis of right foot HFrEF (heart failure with reduced ejection fraction) History of basal cell carcinoma Hypotension Insomnia Obstructive sleep apnea treated with continuous positive airway pressure (CPAP) Paroxysmal ventricular tachycardia (11/01/10) Phantom limb Skin lesion Surgical History S/P below knee amputation L leg 2013 S/P quadruple vessel bypass 2010, in [place] Family History Denies family history of Ovarian cancer Prostate cancer Breast cancer Colorectal cancer Social History Smoking Status: Former smoker Tobacco Type: Cigarettes Cigarettes Per Day: 20; Smoking End Date: 2004; Second Hand Exposure: No; Do You Dip or Chew Tobacco: No; Tobacco Cessation Education Requested by Patient: No Hx Alcohol Use: No Hx Substance Use: No Preferred Language: Armenian Communication Ability: Effective Communication Ability Comment: hard of hearing Gas Line [employer] Required: No Beliefs That Will Affect Care: None marital status: Current Living Situation: Spouse current occupational status: retired Other Information That Helps Us Care for You: No Feels Safe at Home: Yes Safety Concerns: Feels Safe At This Time caffeine: Yes Dental Care, Regularly: Yes Seatbelt Use: always Sunscreen Use: Yes Assistive Devices: Cane, CPAP, Glasses, Special Shoe and Walker Review of Systems Review of Systems: All systems reviewed & are unremarkable except as noted in HPI & below Physical Exam Constitutional: WD/WN, vitals as above Eyes: PERRL, conjunctivae normal, anicteric sclerae Respiratory: normal respiratory effort, + cough and able to speak in complete sentences; no respiratory distress and no stridor Cardiovascular: Rate/Rhythm: regular rate and regular rhythm Gastrointestinal (Abdomen): Inspection/Auscultation: abdomen not distended Percussion/Palpation: + abdomen tender (RUQ/epigastric pain) and abdomen soft; no guarding and abdomen not rigid Musculoskeletal: right dorsal wrist swelling and erythema, right ankle swelling and erythema Skin: no rashes, warm and dry Neurologic: moves all extremities and awake; not confused Psychiatric: A+Ox3, euthymic affect Results & Data Results & Data Vital Signs (Past 12 Hours) Vital Signs Temp Pulse Pulse Resp BP BP Pulse Ox 08/14/22 10:42 64 20 97/60 L 94 08/14/22 09:28 64 94 08/14/22 09:27 64 16 93/56 L 94 08/14/22 09:00 72 16 97/62 L 95 08/14/22 08:59 95 08/14/22 08:42 72 16 117/80 97 08/14/22 08:05 76 08/14/22 08:10 76 95 08/14/22 08:10 87 L 08/14/22 08:14 76 20 103/32 L 94 08/14/22 07:44 95 08/14/22 07:44 37.6 C H 78 16 98/63 L 95 O2 Del Method O2 Flow Rate 08/14/22 10:42 Nasal Cannula 08/14/22 09:28 Nasal Cannula 2 08/14/22 09:27 Nasal Cannula 2 08/14/22 09:00 Nasal Cannula 4 08/14/22 08:59 Nasal Cannula 4 08/14/22 08:42 Nebulizer 08/14/22 08:05 08/14/22 08:10 Nasal Cannula 2 08/14/22 08:10 Room Air 08/14/22 08:14 Nasal Cannula 2 08/14/22 07:44 Room Air 08/14/22 07:44 Room Air Laboratory Results Abnormal lab results 08/14/22 08/14/22 08/14/22 Range/Units 08:03 08:03 08:03 RBC 4.49 L (4.70-6.10) M/uL Hgb 13.5 L (14.0-18.0) g/dl Hct 41.0 L (42.0-52.0) % Lymph # (Auto) 0.54 L (1.2-3.4) K/uL Emmet # (Auto) 0.68 H (0.11-0.59) K/uL ESR (0-20) mm/hr PT 12.1 H (9.0-12.0) Seconds APTT 32.3 H (21.0-31.0) Seconds BUN 28 H (6-23) mg/dl Creatinine 1.82 H (0.6-1.4) mg/dl Glucose 102 H (70-99(Fasting)) mg/dl Uric Acid 8.4 H (2.6-7.2) mg/dl Total Bilirubin 2.8 H (0.2-1.0) mg/dl AST 9 L (13-39) U/L ALT 6 L (7-52) U/L Troponin I High Sens 22.3 H (0-20) pg/ml C-Reactive Protein 21.38 H (0-0.5) mg/dl Lipase 6 L (11-82) U/L Human Metapneumovir PCR (NotDetected) 08/14/22 08/14/22 Range/Units 08:03 08:31 RBC (4.70-6.10) M/uL Hgb (14.0-18.0) g/dl Hct (42.0-52.0) % Lymph # (Auto) (1.2-3.4) K/uL Emmet # (Auto) (0.11-0.59) K/uL ESR 76 H (0-20) mm/hr PT (9.0-12.0) Seconds APTT (21.0-31.0) Seconds BUN (6-23) mg/dl Creatinine (0.6-1.4) mg/dl Glucose (70-99(Fasting)) mg/dl Uric Acid (2.6-7.2) mg/dl Total Bilirubin (0.2-1.0) mg/dl AST (13-39) U/L ALT (7-52) U/L Troponin I High Sens (0-20) pg/ml C-Reactive Protein (0-0.5) mg/dl Lipase (11-82) U/L Human Metapneumovir PCR DETECTED A* (NotDetected) Diagnostic Findings XR chest 1V portable CLINICAL HISTORY: Cough. COMPARISON STUDY: Chest CT March 30, 2022 and chest radiograph July 23, 2022. FINDINGS: No pneumothorax or pleural effusion is present. A left subclavian pacer/AICD is in place. There are median sternotomy wires. Cardiomegaly is unchanged. There is no evidence for overt pulmonary edema. There is possible left basilar opacity. IMPRESSION: 1. Possible left basilar opacity. Artifact is favored however consolidation could appear similar. 2. Cardiomegaly without evidence for pulmonary edema. XR wrist RT min 3V routine CLINICAL HISTORY: wrist pain/swelling COMPARISON: None FINDINGS: Alignment of the right wrist is anatomic. There is no acute fracture. There is no suspicious osseous lesion. No erosive changes are identified. Dorsal hand and wrist soft tissue swelling is noted on lateral projection. Moderate degenerative changes within the right wrist are present. Vascular calcification is incidentally noted. IMPRESSION: 1. No acute fracture or dislocation within the right wrist. 2. Dorsal hand and wrist soft tissue swelling. 3. Moderate degenerative changes within the right wrist. Medications Administered ER Medications Given: Duoneb 2.5mg NEB Morphine 2mg IV Ondansetron 4mg IV Cefepime 2g IV ECG Rate (beats per minute): 77 Findings: + paced rhythm (atrial sensed ventricular paced rhythm with prolonged AV conduction) Comparison ECG Date: from (July 12, 2022) Change: no significant change Code Status & VTE Plan Code Status DNR/DNI as discussed with te patient on admission VTE Prophylaxis Plan VTE Prophylaxis will be ordered: No PG Care Time/CCT Total # of Minutes Spent Total Time Spent with Patient: Total time spent is greater than 50% in coordination of care (as documented) at patient's floor/unit and/or counseling patient: Coding Level of Care Code 03082 INT INP/OBS CARE 3/75MIN Diagnoses Acute cholecystitis K81.0 Human metapneumovirus (hMPV) pneumonia J12.3 Gout flare M10.9 COPD exacerbation J44.1 Paroxysmal ventricular tachycardia I47.2 Ischemic cardiomyopathy I25.5 Chronic systolic (congestive) heart failure I50.22 CAD (coronary artery disease), [place] coronary artery I25.118 Associated angina: with stable angina [place] vs. transplanted heart: [place] heart CKD (chronic kidney disease) stage 3, GFR 30-59 ml/min N18.30 GERD (gastroesophageal reflux disease) K21.9 Obstructive sleep apnea G47.33 Hypertension I10 ICD (implantable cardioverter-defibrillator), biventricular, in situ Z95.810 Anxiety F41.9 Phantom limb G54.7 (8) CAD (coronary artery disease), [place] coronary artery Associated angina: with stable angina [place] vs. transplanted heart: [place] heart Qualified Code(s): I25.118 - Atherosclerotic heart disease of [place] coronary artery with other forms of angina pectoris
--- NOTE | 2022-08-14 10:57 | CT Scan Report ---
CT OF THE ABDOMEN AND PELVIS WITHOUT CONTRAST CLINICAL HISTORY: Right-sided abdominal pain. COMPARISON STUDY: CT of the abdomen and pelvis July 04, 2018 and renal ultrasound March 13. TECHNIQUE: Axial images of the abdomen and pelvis were obtained without IV contrast. Images were revi ewed in the axial, sagittal, and coronal planes. Automated exposure control was utilized for the artemio dy. A dose lowering technique was utilized adhering to the principles of ALARA. FINDINGS: Right lower lobe airspace opacity with bronchial wall thickening and mild mucus plugging is noted. This is better depicted on the chest CT which will be reported separately. There are several old right-sided rib fractures. Evaluation of the abdomen and pelvis is suboptimal on this unenhanced exam. Multiple hypodense hepatic lesions are similar to CT of July 04, 2018. These favor cysts. T here is mild dilatation of the common bile duct, measuring approximately 1 cm. There is no pancreatic ductal dilatation. There are several gallstones within the gallbladder. The gallbladder is mildly di stended. There may be minimal pericholecystic stranding. Spleen, adrenal glands and pancreas are unre markable. There is no peripancreatic stranding. There is no evidence for a bowel obstruction. Colonic diverticulosis is noted. No evidence for acute diverticulitis. The appendix is normal. Small fat-con taining umbilical hernia is present. There is no ascites. No lymphadenopathy. No acute fractures are present within the visualized skeletal structures. Grade I anterolisthesis of L5 on S1 due to bilater al L5 pars defect is unchanged. IMPRESSION: 1. Cholelithiasis with moderate gallbladder distention and possible trace pericholecystic stranding. Acute cholecystitis cannot be excluded. Right upper quadrant ultrasound could be obtained for further evaluation. 2. Mild dilatation of the common bile duct which could be correlated with liver function tests. 3. Right lower lobe airspace opacity which favors pneumonia. 4. No evidence for a bowel obstruction. Colonic diverticulosis without evidence for acute diverticuli tis. ACT 112: Negative or not required by law. Electronically signed by: Guillermo Braden M.D. 08/14/2022 10:55 AM
[2022-08-14 11:13] LABS: C Reactive Protein 21.38 mg/dl (0-0.5)
[2022-08-14] MEDS ORDERED: SOTALOL HCL 80 MG TAB PO STA (11:35)
[2022-08-14] MEDS ORDERED: metroNIDAZOLE 500 MG/100 ML BAG IV STA (11:37)
[2022-08-14] MEDS ORDERED: COLCHICINE 0.6 MG TAB PO ONE (11:51)
[2022-08-14] MEDS ORDERED: methylPREDNISolone 125 MG/2 ML VIAL IV STA (11:56)
--- NOTE | 2022-08-14 12:22 | Ultrasound Report ---
US liver CLINICAL HISTORY: RUQ US - assess for acute cholecystitis COMPARISON STUDY: CT of the abdomen and pelvis performed earlier today. Right upper quadrant ultraso und December 15, 2015. FINDINGS: This exam is compromised by suboptimal penetration. A few small hepatic cysts are present. Gallstones within the gallbladder are noted. The gallbladder is moderately distended. There is no gal lbladder wall thickening. Equivocal sonographic Valdivia sign was elicited. The common bile duct is lar gabby obscured as is the pancreas. There is no right hydronephrosis. IMPRESSION: 1. Cholelithiasis and moderate gallbladder distention. Possible sonographic Valdivia sign. These findin gs are equivocal for acute cholecystitis. A nuclear medicine hepatobiliary scan could be obtained for further evaluation. 2. Largely obscured common bile duct and pancreas. ACT 112: Negative or not required by law. Electronically signed by: Guillermo Braden M.D. 08/14/2022 12:21 PM
--- NOTE | 2022-08-14 12:28 | Electrocardiogram Report ---
Test Reason : Blood Pressure : / mmHG Vent. Rate : 077 BPM Atrial Rate : 077 BPM P-R Int : 212 ms QRS Dur : 128 ms QT Int : 442 ms P-R-T Axes : 070 187 011 degrees QTc Int : 500 ms Poor data quality, interpretation may be adversely affected Atrial-sensed ventricular-paced rhythm with prolonged AV conduction Abnormal ECG When compared with ECG of 22-JUL-2022 10:52, Vent. rate has increased BY 17 BPM Confirmed by Justin Ledesma ([id number]) on 08/14/2022 12:28:16 PM Referred By: REFERRED SELF Confirmed By:Justin Ledesma
[2022-08-14] MEDS ORDERED: DEXTROMETHORPHAN POLYMR COMPLX 30 MG/5 ML UDP PO PRN (12:36)
[2022-08-14] MEDS ORDERED: ACETAMINOPHEN 1,000 MG/100 ML VIAL IV PRN (12:36)
[2022-08-14] MEDS ORDERED: XOPENEX/ATROVENT 0.63mg/0.5MG NEB COMBO NEB SCH (13:00)
[2022-08-14] MEDS ORDERED: methylPREDNISolone 60 MG in SYRINGE 0 ML IV ONE (13:15)
[2022-08-14] MEDS: PANTOprazole 40 MG in SYRINGE 0 ML IV SCH (13:36)
[2022-08-14] MEDS: metroNIDAZOLE 500 MG/100 ML BAG IV SCH ×2 (13:37→20:19)
--- NOTE | 2022-08-14 13:46 | Surgery Consultation ---
Date of Consultation August 14, 2022 Assessment & Plan (1) CKD (chronic kidney disease) stage 3, GFR 30-59 ml/min: (2) Human metapneumovirus (hMPV) pneumonia: (3) COPD exacerbation: (4) Bronchitis: (5) ICD (implantable cardioverter-defibrillator), biventricular, in situ: (6) Ischemic cardiomyopathy: (7) Sustained ventricular tachycardia: (8) Chronic systolic (congestive) heart failure: (9) Acute cholecystitis: Plan 71-year-old with multiple medical problems including extensive cardiac history presents with worsening pneumonia as well as what appears to be an acute cholecystitis with possible choledocholithiasis. Total bilirubin is 2.8. Common bile duct looks enlarged on CT scan but is largely cured on the ultrasound. I recommend IV antibiotics to cover biliary tract organisms. He will need GI consult for possible choledocholithiasis. We will await the cardiac work-up. I would not recommend any surgery at this time. We will treat him conservatively with the antibiotics and monitor his labs. We will await GI input as well. History of Present Illness Reason for Consultation: Possible acute cholecystitis Requesting Physician: Santino Avalos MD Attending Physician: Santino Avalos MD History of Present Illness 71-year-old gentleman with multiple medical problems including heart failure, chronic kidney disease, chronic bronchitis, on apixaban presents with a 3-day history of worsening pneumonia/bronchitis, right-sided abdominal pain. He states the abdominal pain is worse when he is getting up and moving around. He denies correlation with food intake. He denies nausea and vomiting. He denies jaundice, acholic stools, dark urine. CT scan demonstrates enlarged gallbladder with stones and enlarged common bile duct. Ultrasound demonstrates gallstones and possible acute cholecystitis, but the common bile duct is obscured. Total bilirubin 2.8. White blood cell count is normal. Allergies Allergy/AdvReac Type Severity Reaction Status Date / Time heparin Allergy Severe CAUSES HIT Verified 08/03/22 16:55 silver AdvReac Intermediate TOPICAL - Verified 08/03/22 16:55 BURNING, PAIN Home Medications Medication Instructions Recorded Confirmed Type sotalol 80 mg tablet 80 mg PO BID #180 tabs 09/27/21 08/03/22 Rx lorazepam 0.5 mg tablet 0.5 mg PO DAILY PRN anxiety #30 12/07/21 08/03/22 Rx tabs apixaban 5 mg tablet 5 mg PO BID #180 tabs 03/10/22 08/03/22 Rx aspirin 81 mg tablet,delayed 81 mg PO DAILY #90 tabs 03/10/22 08/03/22 Rx release atorvastatin 20 mg tablet 20 mg PO DAILY #90 tabs 03/10/22 08/03/22 Rx bumetanide 1 mg tablet 1 mg PO DAILY #90 tabs 03/10/22 08/03/22 Rx pantoprazole 40 mg tablet,delayed 40 mg PO DAILY #90 tabs 03/10/22 08/03/22 Rx release potassium chloride 10 mEq 20 meq PO DAILY #90 caps 03/10/22 08/03/22 Rx capsule,extended release citalopram 20 mg tablet 20 mg PO DAILY 05/23/22 08/03/22 History empagliflozin 10 mg tablet 10 mg PO DAILY #30 tabs 06/28/22 08/03/22 Rx (Jardiance) amoxicillin 500 mg capsule 2,000 mg PO DIRECTED PRN PRIOR 07/22/22 08/03/22 History TO DENTAL APPT. gabapentin 600 mg tablet 600 mg PO BID 07/22/22 08/03/22 History metoprolol succinate 50 mg 25 mg PO DAILY 07/22/22 08/03/22 History tablet,extended release 24 hr nitroglycerin 0.4 mg sublingual 0.4 mg sublingual DIRECTED PRN 07/22/22 08/03/22 History tablet Chest Pain ipratropium 20 mcg-albuterol 100 1 puff inhalation Q6H PRN 07/24/22 08/03/22 Rx mcg/actuation mist for inhalation cough/wheeze/shortness of breath (Combivent Respimat) #4 grams sacubitril 24 mg-valsartan 26 mg 1 tab PO BID 08/01/22 08/03/22 History tablet benzonatate 200 mg capsule 200 mg PO TID PRN cough #30 caps 08/03/22 08/03/22 Rx cetirizine 10 mg tablet (Allergy 10 mg PO DAILY #30 tabs 08/03/22 08/03/22 Rx Relief (cetirizine)) fluticasone propionate 50 1 spray intranasal BID #16 grams 08/03/22 08/03/22 Rx mcg/actuation nasal spray,suspension (Flonase Allergy Relief) zolpidem 10 mg tablet 5 - 10 mg PO HS PRN insomnia #30 08/12/22 Rx tabs Patient History Medical History Acute bronchitis EVIE (acute kidney injury) Anxiety Atrial flutter CKD (chronic kidney disease) stage 3, GFR 30-59 ml/min GERD (gastroesophageal reflux disease) Gouty arthritis of right foot HFrEF (heart failure with reduced ejection fraction) History of basal cell carcinoma Hypotension Insomnia Obstructive sleep apnea treated with continuous positive airway pressure (CPAP) Paroxysmal ventricular tachycardia (11/01/10) Phantom limb Skin lesion Surgical History S/P below knee amputation L leg 2013 S/P quadruple vessel bypass 2009, in [place] Family History Denies family history of Ovarian cancer Prostate cancer Breast cancer Colorectal cancer Social History Smoking Status: Former smoker Tobacco Type: Cigarettes Cigarettes Per Day: 20; Smoking End Date: 2004; Second Hand Exposure: No; Do You Dip or Chew Tobacco: No; Tobacco Cessation Education Requested by Patient: No Hx Alcohol Use: No Hx Substance Use: No Preferred Language: Icelandic Communication Ability: Effective Communication Ability Comment: hard of hearing Firefighter Required: No Beliefs That Will Affect Care: None marital status: Current Living Situation: Spouse current occupational status: retired Other Information That Helps Us Care for You: No Feels Safe at Home: Yes Safety Concerns: Feels Safe At This Time caffeine: Yes Dental Care, Regularly: Yes Seatbelt Use: always Sunscreen Use: Yes Assistive Devices: Cane, CPAP, Glasses, Special Shoe and Walker Review of Systems Review of Systems: All systems reviewed & are unremarkable except as noted in HPI & below Physical Exam Constitutional: WD/WN, vitals as above Eyes: PERRL, conjunctivae normal, anicteric sclerae Neck: trachea midline, no thyromegaly Respiratory: normal respiratory effort; no respiratory distress and no labored breathing Cardiovascular: Rate/Rhythm: regular rate and regular rhythm Gastrointestinal (Abdomen): Inspection/Auscultation: abdomen normal to inspec tion and + abdomen distended Percussion/Palpation: + abdomen tender (Right and left upper quadrant) and abdomen soft; no guarding and abdomen not rigid Skin: no rashes, warm and dry Psychiatric: A+Ox3, euthymic affect Results & Data Vital Signs (Past 12 Hours) Vital Signs Temp Pulse Pulse Resp BP BP Pulse Ox 08/14/22 12:43 08/14/22 12:43 37.4 C 64 18 105/67 94 08/14/22 11:41 76 08/14/22 11:31 74 18 115/74 95 08/14/22 10:42 64 20 97/60 L 94 08/14/22 09:28 64 94 08/14/22 09:27 64 16 93/56 L 94 08/14/22 09:00 72 16 97/62 L 95 08/14/22 08:59 95 08/14/22 08:42 72 16 117/80 97 08/14/22 08:05 76 08/14/22 08:10 76 95 08/14/22 08:10 87 L 08/14/22 08:14 76 20 103/32 L 94 08/14/22 07:44 95 08/14/22 07:44 37.6 C H 78 16 98/63 L 95 O2 Del Method O2 Flow Rate 08/14/22 12:43 Nasal Cannula 2 08/14/22 12:43 Nasal Cannula 2 08/14/22 11:41 08/14/22 11:31 Room Air 08/14/22 10:42 Nasal Cannula 08/14/22 09:28 Nasal Cannula 2 08/14/22 09:27 Nasal Cannula 2 08/14/22 09:00 Nasal Cannula 4 08/14/22 08:59 Nasal Cannula 4 08/14/22 08:42 Nebulizer 08/14/22 08:05 08/14/22 08:10 Nasal Cannula 2 08/14/22 08:10 Room Air 08/14/22 08:14 Nasal Cannula 2 08/14/22 07:44 Room Air 08/14/22 07:44 Room Air Laboratory Results 08/14/22 08/14/22 08/14/22 Range/Units 10:27 10:27 08:31 WBC (4.8-10.8) K/ul RBC (4.70-6.10) M/uL Hgb (14.0-18.0) g/dl Hct (42.0-52.0) % MCV (80.0-100.0) fL MCH (25.0-34.0) pg MCHC (32.0-36.0) g/dL RDW Std Deviation (36.4-46.3) fL RDW Coeff of Faby (11.5-14.5) % Plt Count (130-400) K/uL MPV (9.4-12.4) fL Immature Gran % (Auto) % Neut % (Auto) % Lymph % (Auto) % [place]ne % (Auto) % Eos % (Auto) % Baso % (Auto) % Neut # (Auto) (1.40-6.50) K/uL Lymph # (Auto) (1.2-3.4) K/uL [place]ne # (Auto) (0.11-0.59) K/uL Eos # (Auto) (0-0.50) K/uL Baso # (Auto) (0-0.2) K/uL Immature Gran # (Auto) (0.01-0.20) K/uL ESR (0-20) mm/hr PT (9.0-12.0) Seconds INR (0.9-1.1) APTT (21.0-31.0) Seconds PTT Ratio Sodium (136-145) mmol/L Potassium (3.5-5.1) mmol/L Chloride (98-107) mmol/L Carbon Dioxide (21-32) mmol/L Anion Gap (3-11) BUN (6-23) mg/dl Creatinine (0.6-1.4) mg/dl Est Cr Clr Drug Dosing ml/min Est GFR ( Amer) ml/min Est GFR (Non-Af Amer) ml/min BUN/Creatinine Ratio (10-20) Glucose (70-99(Fasting)) mg/dl Lactate 1.4 (0.4-2.0) mmol/L Uric Acid (2.6-7.2) mg/dl Calcium (8.6-10.3) mg/dl Magnesium (1.7-2.4) mg/dl Total Bilirubin (0.2-1.0) mg/dl AST (13-39) U/L ALT (7-52) U/L Alkaline Phosphatase (34-104) U/L Troponin I High Sens 13.2 D (0-20) pg/ml C-Reactive Protein (0-0.5) mg/dl Total Protein (6.0-8.3) gm/dl Albumin (3.4-5.0) gm/dl Globulin (2.5-4.0) gm/dl Albumin/Globulin Ratio (0.9-2) Lipase (11-82) U/L Procalcitonin (0-0.5) ng/ml Adenovirus (PCR) Not Detected (NotDetected) B. pertussis DNA (PCR) Not Detected (NotDetected) B.parapertussis DNA PCR Not Detected (NotDetected) C. pneumoniae DNA (PCR) Not Detected (NotDetected) Coronavirus OC43 (PCR) Not Detected (NotDetected) Coronavirus HKU1 (PCR) Not Detected (NotDetected) Coronavirus 229E (PCR) Not Detected (NotDetected) SARS-CoV-2 (PCR) Not Detected (NotDetected) Coronavirus NL63 (PCR) Not Detected (NotDetected) Human Metapneumovir PCR DETECTED A* (NotDetected) Influenza Type A (PCR) Not Detected (NotDetected) Influenza Type B (PCR) Not Detected (NotDetected) M. pneumoniae (PCR) Not Detected (NotDetected) Parainfluenza 1 (PCR) Not Detected (NotDetected) Parainfluenza 2 (PCR) Not Detected (NotDetected) Parainfluenza 3 (PCR) Not Detected (NotDetected) Parainfluenza 4 (PCR) Not Detected (NotDetected) RSV (PCR) Not Detected (NotDetected) Entero/Rhino (PCR) Not Detected (NotDetected) SARS-CoV-2, RNA, NAAT (NEGATIVE) 08/14/22 08/14/22 08/14/22 Range/Units 08:04 08:03 08:03 WBC (4.8-10.8) K/ul RBC (4.70-6.10) M/uL Hgb (14.0-18.0) g/dl Hct (42.0-52.0) % MCV (80.0-100.0) fL MCH (25.0-34.0) pg MCHC (32.0-36.0) g/dL RDW Std Deviation (36.4-46.3) fL RDW Coeff of Faby (11.5-14.5) % Plt Count (130-400) K/uL MPV (9.4-12.4) fL Immature Gran % (Auto) % Neut % (Auto) % Lymph % (Auto) % [place] % (Auto) % Eos % (Auto) % Baso % (Auto) % Neut # (Auto) (1.40-6.50) K/uL Lymph # (Auto) (1.2-3.4) K/uL [place] # (Auto) (0.11-0.59) K/uL Eos # (Auto) (0-0.50) K/uL Baso # (Auto) (0-0.2) K/uL Immature Gran # (Auto) (0.01-0.20) K/uL ESR 76 H (0-20) mm/hr PT (9.0-12.0) Seconds INR (0.9-1.1) APTT (21.0-31.0) Seconds PTT Ratio Sodium (136-145) mmol/L Potassium (3.5-5.1) mmol/L Chloride (98-107) mmol/L Carbon Dioxide (21-32) mmol/L Anion Gap (3-11) BUN (6-23) mg/dl Creatinine (0.6-1.4) mg/dl Est Cr Clr Drug Dosing ml/min Est GFR ( Amer) ml/min Est GFR (Non-Af Amer) ml/min BUN/Creatinine Ratio (10-20) Glucose (70-99(Fasting)) mg/dl Lactate (0.4-2.0) mmol/L Uric Acid (2.6-7.2) mg/dl Calcium (8.6-10.3) mg/dl Magnesium Cancelled (1.7-2.4) mg/dl Total Bilirubin (0.2-1.0) mg/dl AST (13-39) U/L ALT (7-52) U/L Alkaline Phosphatase (34-104) U/L Troponin I High Sens (0-20) pg/ml C-Reactive Protein (0-0.5) mg/dl Total Protein (6.0-8.3) gm/dl Albumin (3.4-5.0) gm/dl Globulin (2.5-4.0) gm/dl Albumin/Globulin Ratio (0.9-2) Lipase (11-82) U/L Procalcitonin (0-0.5) ng/ml Adenovirus (PCR) (NotDetected) B. pertussis DNA (PCR) (NotDetected) B.parapertussis DNA PCR (NotDetected) C. pneumoniae DNA (PCR) (NotDetected) Coronavirus OC43 (PCR) (NotDetected) Coronavirus HKU1 (PCR) (NotDetected) Coronavirus 229E (PCR) (NotDetected) SARS-CoV-2 (PCR) (NotDetected) Coronavirus NL63 (PCR) (NotDetected) Human Metapneumovir PCR (NotDetected) Influenza Type A (PCR) (NotDetected) Influenza Type B (PCR) (NotDetected) M. pneumoniae (PCR) (NotDetected) Parainfluenza 1 (PCR) (NotDetected) Parainfluenza 2 (PCR) (NotDetected) Parainfluenza 3 (PCR) (NotDetected) Parainfluenza 4 (PCR) (NotDetected) RSV (PCR) (NotDetected) Entero/Rhino (PCR) (NotDetected) SARS-CoV-2, RNA, NAAT NEGATIVE (NEGATIVE) 08/14/22 08/14/22 08/14/22 Range/Units 08:03 08:03 08:03 WBC (4.8-10.8) K/ul RBC (4.70-6.10) M/uL Hgb (14.0-18.0) g/dl Hct (42.0-52.0) % MCV (80.0-100.0) fL MCH (25.0-34.0) pg MCHC (32.0-36.0) g/dL RDW Std Deviation (36.4-46.3) fL RDW Coeff of Faby (11.5-14.5) % Plt Count (130-400) K/uL MPV (9.4-12.4) fL Immature Gran % (Auto) % Neut % (Auto) % Lymph % (Auto) % [place]ne % (Auto) % Eos % (Auto) % Baso % (Auto) % Neut # (Auto) (1.40-6.50) K/uL Lymph # (Auto) (1.2-3.4) K/uL [place]ne # (Auto) (0.11-0.59) K/uL Eos # (Auto) (0-0.50) K/uL Baso # (Auto) (0-0.2) K/uL Immature Gran # (Auto) (0.01-0.20) K/uL ESR (0-20) mm/hr PT 12.1 H (9.0-12.0) Seconds INR 1.1 (0.9-1.1) APTT 32.3 H (21.0-31.0) Seconds PTT Ratio 1.2 Sodium 137 (136-145) mmol/L Potassium 4.3 (3.5-5.1) mmol/L Chloride 100 (98-107) mmol/L Carbon Dioxide 27 (21-32) mmol/L Anion Gap 10 (3-11) BUN 28 H (6-23) mg/dl Creatinine 1.82 H (0.6-1.4) mg/dl Est Cr Clr Drug Dosing 40.2 ml/min Est GFR ( Amer) 41.8 ml/min Est GFR (Non-Af Amer) 36.0 ml/min BUN/Creatinine Ratio 15.4 (10-20) Glucose 102 H (70-99(Fasting)) mg/dl Lactate (0.4-2.0) mmol/L Uric Acid 8.4 H (2.6-7.2) mg/dl Calcium 8.9 (8.6-10.3) mg/dl Magnesium 2.0 (1.7-2.4) mg/dl Total Bilirubin 2.8 H (0.2-1.0) mg/dl AST 9 L (13-39) U/L ALT 6 L (7-52) U/L Alkaline Phosphatase 82 (34-104) U/L Troponin I High Sens 22.3 H (0-20) pg/ml C-Reactive Protein 21.38 H (0-0.5) mg/dl Total Protein 6.7 (6.0-8.3) gm/dl Albumin 3.8 (3.4-5.0) gm/dl Globulin 2.9 (2.5-4.0) gm/dl Albumin/Globulin Ratio 1.3 (0.9-2) Lipase 6 L (11-82) U/L Procalcitonin 0.18 (0-0.5) ng/ml Adenovirus (PCR) (NotDetected) B. pertussis DNA (PCR) (NotDetected) B.parapertussis DNA PCR (NotDetected) C. pneumoniae DNA (PCR) (NotDetected) Coronavirus OC43 (PCR) (NotDetected) Coronavirus HKU1 (PCR) (NotDetected) Coronavirus 229E (PCR) (NotDetected) SARS-CoV-2 (PCR) (NotDetected) Coronavirus NL63 (PCR) (NotDetected) Human Metapneumovir PCR (NotDetected) Influenza Type A (PCR) (NotDetected) Influenza Type B (PCR) (NotDetected) M. pneumoniae (PCR) (NotDetected) Parainfluenza 1 (PCR) (NotDetected) Parainfluenza 2 (PCR) (NotDetected) Parainfluenza 3 (PCR) (NotDetected) Parainfluenza 4 (PCR) (NotDetected) RSV (PCR) (NotDetected) Entero/Rhino (PCR) (NotDetected) SARS-CoV-2, RNA, NAAT (NEGATIVE) 08/14/22 Range/Units 08:03 WBC 7.61 (4.8-10.8) K/ul RBC 4.49 L (4.70-6.10) M/uL Hgb 13.5 L (14.0-18.0) g/dl Hct 41.0 L (42.0-52.0) % MCV 91.3 (80.0-100.0) fL MCH 30.1 (25.0-34.0) pg MCHC 32.9 (32.0-36.0) g/dL RDW Std Deviation 45.6 (36.4-46.3) fL RDW Coeff of Faby 13.5 (11.5-14.5) % Plt Count 135 (130-400) K/uL MPV 11.0 (9.4-12.4) fL Immature Gran % (Auto) 0.3 % Neut % (Auto) 82.2 % Lymph % (Auto) 7.1 % Duchesne % (Auto) 8.9 % Eos % (Auto) 1.2 % Baso % (Auto) 0.3 % Neut # (Auto) 6.26 (1.40-6.50) K/uL Lymph # (Auto) 0.54 L (1.2-3.4) K/uL Duc[place]ne # (Auto) 0.68 H (0.11-0.59) K/uL Eos # (Auto) 0.09 (0-0.50) K/uL Baso # (Auto) 0.02 (0-0.2) K/uL Immature Gran # (Auto) 0.02 (0.01-0.20) K/uL ESR (0-20) mm/hr PT (9.0-12.0) Seconds INR (0.9-1.1) APTT (21.0-31.0) Seconds PTT Ratio Sodium (136-145) mmol/L Potassium (3.5-5.1) mmol/L Chloride (98-107) mmol/L Carbon Dioxide (21-32) mmol/L Anion Gap (3-11) BUN (6-23) mg/dl Creatinine (0.6-1.4) mg/dl Est Cr Clr Drug Dosing ml/min Est GFR ( Amer) ml/min Est GFR (Non-Af Amer) ml/min BUN/Creatinine Ratio (10-20) Glucose (70-99(Fasting)) mg/dl Lactate (0.4-2.0) mmol/L Uric Acid (2.6-7.2) mg/dl Calcium (8.6-10.3) mg/dl Magnesium (1.7-2.4) mg/dl Total Bilirubin (0.2-1.0) mg/dl AST (13-39) U/L ALT (7-52) U/L Alkaline Phosphatase (34-104) U/L Troponin I High Sens (0-20) pg/ml C-Reactive Protein (0-0.5) mg/dl Total Protein (6.0-8.3) gm/dl Albumin (3.4-5.0) gm/dl Globulin (2.5-4.0) gm/dl Albumin/Globulin Ratio (0.9-2) Lipase (11-82) U/L Procalcitonin (0-0.5) ng/ml Adenovirus (PCR) (NotDetected) B. pertussis DNA (PCR) (NotDetected) B.parapertussis DNA PCR (NotDetected) C. pneumoniae DNA (PCR) (NotDetected) Coronavirus OC43 (PCR) (NotDetected) Coronavirus HKU1 (PCR) (NotDetected) Coronavirus 229E (PCR) (NotDetected) SARS-CoV-2 (PCR) (NotDetected) Coronavirus NL63 (PCR) (NotDetected) Human Metapneumovir PCR (NotDetected) Influenza Type A (PCR) (NotDetected) Influenza Type B (PCR) (NotDetected) M. pneumoniae (PCR) (NotDetected) Parainfluenza 1 (PCR) (NotDetected) Parainfluenza 2 (PCR) (NotDetected) Parainfluenza 3 (PCR) (NotDetected) Parainfluenza 4 (PCR) (NotDetected) RSV (PCR) (NotDetected) Entero/Rhino (PCR) (NotDetected) SARS-CoV-2, RNA, NAAT (NEGATIVE) Diagnostic Findings CT OF THE ABDOMEN AND PELVIS WITHOUT CONTRAST CLINICAL HISTORY: Right-sided abdominal pain. COMPARISON STUDY: CT of the abdomen and pelvis July 04, 2018 and renal ultrasound March 13, 2020. TECHNIQUE: Axial images of the abdomen and pelvis were obtained without IV contrast. Images were reviewed in the axial, sagittal, and coronal planes. Automated exposure control was utilized for the study. A dose lowering technique was utilized adhering to the principles of ALARA. FINDINGS: Right lower lobe airspace opacity with bronchial wall thickening and mild mucus plugging is noted. This is better depicted on the chest CT which will be reported separately. There are several old right-sided rib fractures. Evaluation of the abdomen and pelvis is suboptimal on this unenhanced exam. Multiple hypodense hepatic lesions are similar to CT of July 04, 2018. These favor cysts. There is mild dilatation of the common bile duct, measuring approximately 1 cm. There is no pancreatic ductal dilatation. There are several gallstones within the gallbladder. The gallbladder is mildly distended. There may be minimal pericholecystic stranding. Spleen, adrenal glands and pancreas are unremarkable. There is no peripancreatic stranding. There is no evidence for a bowel obstruction. Colonic diverticulosis is noted. No evidence for acute diverticulitis. The appendix is normal. Small fat-containing umbilical hernia is present. There is no ascites. No lymphadenopathy. No acute fractures are present within the visualized skeletal structures. Grade I anterolisthesis of L5 on S1 due to bilateral L5 pars defect is unchanged. IMPRESSION: 1. Cholelithiasis with moderate gallbladder distention and possible trace pericholecystic stranding. Acute cholecystitis cannot be excluded. Right upper quadrant ultrasound could be obtained for further evaluation. 2. Mild dilatation of the common bile duct which could be correlated with liver function tests. 3. Right lower lobe airspace opacity which favors pneumonia. 4. No evidence for a bowel obstruction. Colonic diverticulosis without evidence for acute diverticulitis. US liver CLINICAL HISTORY: RUQ US - assess for acute cholecystitis COMPARISON STUDY: CT of the abdomen and pelvis performed earlier today. Right upper quadrant ultrasound December 15, 2015. FINDINGS: This exam is compromised by suboptimal penetration. A few small hepatic cysts are present. Gallstones within the gallbladder are noted. The gallbladder is moderately distended. There is no gallbladder wall thickening. Equivocal sonographic Valdivia sign was elicited. The common bile duct is largely obscured as is the pancreas. There is no right hydronephrosis. IMPRESSION: 1. Cholelithiasis and moderate gallbladder distention. Possible sonographic Valdivia sign. These findings are equivocal for acute cholecystitis. A nuclear medicine hepatobiliary scan could be obtained for further evaluation. 2. Largely obscured common bile duct and pancreas.
[2022-08-14] MEDS: METOPROLOL SUCC 25MG EXT REL TAB PO SCH (14:27)
[2022-08-14] MEDS: MoRPHine SULFATE 4 MG/ML 1 ML CARP\\VIAL IV PRN ×2 (14:28→18:34)
[2022-08-14] MEDS: LEVALBUTEROL HCL 0.63 MG/3 ML NEB NEB SCH ×2 (14:34→19:23)
[2022-08-14] MEDS: IPRATROPIUM BROMIDE NEB SOLN 0.02% 2.5 ML VIAL INH SCH ×2 (14:34→19:22)
--- NOTE | 2022-08-14 14:37 | Orthopedic Consultation ---
Date of Service August 14, 2022 Assessment & Plan (1) Right wrist effusion: Admitted with flare of right wrist pain and recurrent dorsal foot pain. Previously responded to corticosteroids. Agree with treatment for inflammatory arthritis. Consider rheumatologic consult. Wrist was aspirated and yielded 1 to 2 cc of thick synovial fluid with gouty consistency. No obvious purulence and low volume. Recommend removable wrist brace for comfort. He is range of motion and weightbearing as tolerated. Follow-up with the synovial analysis. Contact me with any further questions via [employer] text. History of Present Illness Reason for Consultation: Right wrist pain and swelling Requesting Physician: . Attending Physician: Santino Avalos MD 71-year-old male admitted with a right wrist pain and swelling following admission this month previously for right foot swelling and pain presumed to be gout. Consulted by the hospitalist team for aspiration in order to get a more definitive diagnosis. Patient reports that he never had joint pain and swelling like this before. Pain is located over the wrist on the dorsal side, less on the palmar side. He is having difficulty with finger extension due to pain. Allergies Allergy/AdvReac Type Severity Reaction Status Date / Time heparin Allergy Severe CAUSES HIT Verified 08/03/22 16:55 silver AdvReac Intermediate TOPICAL - Verified 08/03/22 16:55 BURNING, PAIN Home Medications Medication Instructions Recorded Confirmed Type sotalol 80 mg tablet 80 mg PO BID #180 tabs 09/27/21 08/03/22 Rx lorazepam 0.5 mg tablet 0.5 mg PO DAILY PRN anxiety #30 12/07/21 08/03/22 Rx tabs apixaban 5 mg tablet 5 mg PO BID #180 tabs 03/10/22 08/03/22 Rx aspirin 81 mg tablet,delayed 81 mg PO DAILY #90 tabs 03/10/22 08/03/22 Rx release atorvastatin 20 mg tablet 20 mg PO DAILY #90 tabs 03/10/22 08/03/22 Rx bumetanide 1 mg tablet 1 mg PO DAILY #90 tabs 03/10/22 08/03/22 Rx pantoprazole 40 mg tablet,delayed 40 mg PO DAILY #90 tabs 03/10/22 08/03/22 Rx release potassium chloride 10 mEq 20 meq PO DAILY #90 caps 03/10/22 08/03/22 Rx capsule,extended release citalopram 20 mg tablet 20 mg PO DAILY 05/23/22 08/03/22 History empagliflozin 10 mg tablet 10 mg PO DAILY #30 tabs 06/28/22 08/03/22 Rx (Jardiance) amoxicillin 500 mg capsule 2,000 mg PO DIRECTED PRN PRIOR 07/22/22 08/03/22 History TO DENTAL APPT. gabapentin 600 mg tablet 600 mg PO BID 07/22/22 08/03/22 History metoprolol succinate 50 mg 25 mg PO DAILY 07/22/22 08/03/22 History tablet,extended release 24 hr nitroglycerin 0.4 mg sublingual 0.4 mg sublingual DIRECTED PRN 07/22/22 08/03/22 History tablet Chest Pain ipratropium 20 mcg-albuterol 100 1 puff inhalation Q6H PRN 07/24/22 08/03/22 Rx mcg/actuation mist for inhalation cough/wheeze/shortness of breath (Combivent Respimat) #4 grams sacubitril 24 mg-valsartan 26 mg 1 tab PO BID 08/01/22 08/03/22 History tablet benzonatate 200 mg capsule 200 mg PO TID PRN cough #30 caps 08/03/22 08/03/22 Rx cetirizine 10 mg tablet (Allergy 10 mg PO DAILY #30 tabs 08/03/22 08/03/22 Rx Relief (cetirizine)) fluticasone propionate 50 1 spray intranasal BID #16 grams 08/03/22 08/03/22 Rx mcg/actuation nasal spray,suspension (Flonase Allergy Relief) zolpidem 10 mg tablet 5 - 10 mg PO HS PRN insomnia #30 08/12/22 Rx tabs Past Med/Surg History Medical History Acute bronchitis EVIE (acute kidney injury) Anxiety Atrial flutter CKD (chronic kidney disease) stage 3, GFR 30-59 ml/min GERD (gastroesophageal reflux disease) Gouty arthritis of right foot HFrEF (heart failure with reduced ejection fraction) History of basal cell carcinoma Hypotension Insomnia Obstructive sleep apnea treated with continuous positive airway pressure (CPAP) Paroxysmal ventricular tachycardia (11/01/10) Phantom limb Skin lesion Surgical History S/P below knee amputation L leg 2013 S/P quadruple vessel bypass 2010, in [place] Family History Denies family history of Ovarian cancer Prostate cancer Breast cancer Colorectal cancer Social History Smoking Status: Former smoker Tobacco Type: Cigarettes Cigarettes Per Day: 20; Smoking End Date: 2004; Second Hand Exposure: No; Do You Dip or Chew Tobacco: No; Tobacco Cessation Education Requested by Patient: No Hx Alcohol Use: No Hx Substance Use: No Preferred Language: Beninese Communication Ability: Effective Communication Ability Comment: hard of hearing 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 Physical Exam Alert and oriented and cooperative. Consented to aspiration Right wrist: Mild edema over the wrist. Palpable effusion versus some synovitis of the dorsal extensor compartment. Very guarded with active wrist flexion extension. Guarded with finger extension and flexion but able to get full extension rested on a pillow. Neurovascularly intact Constitutional WD/WN, vitals as above Respiratory normal respiratory effort; no respiratory distress Cardiovascular Extremities: normal capillary refill; no edema Chest (Breasts) Chest: normal inspection of chest Skin no rashes, warm and dry Psychiatric A+Ox3, euthymic affect Results & Data Results & Data Laboratory Results H & H 08/14/22 Range/Units 08:03 Hgb 13.5 L (14.0-18.0) g/dl Hct 41.0 L (42.0-52.0) % Coagulation 08/14/22 Range/Units 08:03 INR 1.1 (0.9-1.1) Normal WBC Diagnostic Findings Radiographs of the right wrist were obtained previously. I evaluated these and agree with the radiologist. No definitive findings with regard to rheumatoid or osteoarthritis. No obvious gouty tophi or evidence of chondrocalcinosis. Mild dorsal wrist swelling. PG Care Time/CCT Total # of Minutes Spent Total Time Spent with Patient: Total time spent is greater than 50% in coordination of care (as documented) at patient's floor/unit and/or counseling patient: Coding Level of Care Code 56999 IN/OBS CONSULT LVL 4,60M Diagnoses Right wrist effusion M25.431
--- NOTE | 2022-08-14 14:39 | Procedure Note ---
Procedure Note Date of Service August 14, 2022 Note Right wrist aspiration The indications, technique, and expectations for the procedure were explained in detail. The patient was agreeable to proceed. Nurse was available for assistance. The joint line near [place]'s tubercle was marked. Collecting scrubs used to prepare the skin. Using a sterile technique and an 18-gauge needle, 2 cc of thickened synovial fluid was aspirated. Patient tolerated the procedure well, and the site was dressed with a Band-Aid. Coding
[2022-08-14] MEDS: DOXYCYCLINE HYCLATE 100 MG in DEXTROSE 5% 100 ML IV SCH (14:52)
[2022-08-14 17:26] LABS: Appearance Urine Clear (Clear); Bilirubin Urine Negative (Negative); Blood Urine Negative (Negative); Color Urine Yellow; Glucose Urine UA 3+ (Negative); Ketones Urine Negative (Negative); Leukocyte Esterase Urine Negative (Negative); Nitrite Urine Negative (Negative); Protein Urine 2+ (Negative); Specific Gravity Urine 1.025 (1.000-1.030); Urobilinogen Urine Negative (Negative)
[2022-08-14] MEDS ORDERED: cefTRIAXone SODIUM 2,000 MG in DEXTROSE 5% 50 ML IV SCH (18:00)
[2022-08-14 18:06] LABS: Bacteria Urine Negative (Negative)
[2022-08-14 18:07] LABS: Epithelial Cell Urine 0-5 /lpf (0-5); RBC Urine 0-4 /hpf (0-4); WBC Urine 0-5 /hpf (0-5)
[2022-08-14] MEDS: FORMOTEROL 20 MCG/2 ML VIAL NEB SCH (19:15)
[2022-08-14] MEDS: BUDESONIDE 0.5 MG/2 ML VIAL (PULMICORT) NEB SCH (19:15)
[2022-08-14] MEDS: FLUTICASONE PROPIONATE NA SPR 16 GM BTL NAE SCH (20:16)
[2022-08-14] MEDS: SOTALOL HCL 80 MG TAB PO SCH (20:19)
[2022-08-14] MEDS ORDERED: ZOLPIDEM TARTRATE 5 MG TAB PO PRN (20:33)
[2022-08-14] MEDS ORDERED: ZOLPIDEM TARTRATE 10 MG TAB PO PRN (20:34)
[2022-08-14] MEDS ORDERED: COLCHICINE 0.6 MG TAB PO SCH (21:00)
[2022-08-14] MEDS: guaiFENesin 600 MG TABCR PO SCH (21:21)
[2022-08-14] MEDS: GABAPENTIN 600 MG TAB PO SCH (21:21)
[2022-08-15] MEDS: IPRATROPIUM BROMIDE NEB SOLN 0.02% 2.5 ML VIAL INH SCH ×4 (00:10→19:51)
[2022-08-15] MEDS: LEVALBUTEROL HCL 0.63 MG/3 ML NEB NEB SCH ×4 (00:10→19:51)
[2022-08-15] MEDS: DOXYCYCLINE HYCLATE 100 MG in DEXTROSE 5% 100 ML IV SCH ×2 (00:58→14:21)
[2022-08-15] MEDS: metroNIDAZOLE 500 MG/100 ML BAG IV SCH ×2 (05:31→14:19)
--- NOTE | 2022-08-15 07:04 | Hospitalist Progress Note ---
Date of Service August 15, 2022 Assessment & Plan (1) Pneumonia: (2) Gout: (3) Pain in right wrist: (4) Abdominal pain: (5) Cough: (6) Right wrist effusion: (7) CKD (chronic kidney disease) stage 3, GFR 30-59 ml/min: (8) Human metapneumovirus (hMPV) pneumonia: (9) COPD exacerbation: (10) Obstructive sleep apnea: Plan #RUQ pain Patiently initially worked up for acute cholecystitis/choledocholithiasis Patient's HIDA scan and MRCP were negative. Right upper quadrant pain most likely secondary to rib dysfunction rather than. Was started on metronidazole and ceftriaxone, will DC due to patient's symptoms most likely not result of any hepatobiliary dysfunction. Bilirubin came down to 1.2 from 2.8. AST and ALT well, alk phos normal. Blood cultures started. We will follow-up on results Abdominal pain might be caused by constipation, will give MiraLAX at this time and reevaluate in the morning #Human metapneumovirus (hMPV) pneumonia Mild consolidative changes on CT, no leukocytosis and Pro-Javi negative. Centimeters spiromete Incentive spirometer, Flutter valve, Guaifenesin BID, and Dextromethorphan PRN for cough Medrol 60 mg IV on admission and then 40 mg daily, Levalbuterol/ipratropium Nebs q6h, formoterol/budesonide NEB BID Doxycycline 100mg IV BID #Left rib inhalation dysfunction Inhaled respiratory assist done to left rib cage. #Gout flare #Right wrist effusion Given only recently started having joint flare ups this is not a definitive diagnosis as not previously aspirated but he appears to have an inflammatory polyarthritis without prior diagnosis of autoimmune conditions since it improved with prednisone previously. ?related to dehydration after starting Jardiance. Uric acid level not particularly useful during acute flare ups, ideally can be measured on follow up as likely to need allopurinol once flare up resolved with colchicine coverage during initiation. eGFR 40.2 - will give colchicine and warned patient about diarrhea. Solu- medrol as below will also treat. Orthopedics consulted and sooner if fluid removed from right wrist #Paroxysmal ventricular tachycardia a. fib/flutter/sustained VT s/p ICD placement & multiple (6) ablations 2009- 2018; Last 09/2018 [facility] Continue sotalol Mg normal #Ischemic cardiomyopathy Suspect can continue metoprolol succinate and Entresto but will give his sotalol first and make sure his BP is stable before being given #Chronic systolic (congestive) heart failure: Currently appears euvolemic. Will hold his Bumex and Jardiance while NPO. #CAD (coronary artery disease), [place] coronary artery Continue asa, atorvastatin Metoprolol as above Eliquis as above #CKD (chronic kidney disease) stage 3, GFR 30-59 ml/min: At baseline #GERD (gastroesophageal reflux disease) Switch pantoprazole to IV while NPO #Obstructive sleep apnea: May use own CPAP #ICD (implantable cardioverter-defibrillator), biventricular, in situ - on tele #Anxiety: Continue citalopram #Phantom limb Continue gabapentin Admission and Anticipated Discharge Date Admission Date: August 14, 2022 Supervising Physician Co-Signing Physician Notes I personally examined the patient and verified all carrillo points of history and exam, discussed case, and agree with decision making with Dr Albarran Feeling better. Breathing better. Right-sided pain is lower chest/upper abdominal, hurts with cough or with a deep breath. present, answered all questions the best my ability and to her satisfaction, daughter called on the phone while I was in the room, answered all her questions as well. Vitals noted, in general he is awake and alert pleasant no distress. HEENT normocephalic atraumatic mucous membranes moist. Cardio is regular no rubs murmurs or gallops, lungs coarse right worse than left but overall clear. No rales rhonchi or wheezes good effort. Osteopathic/musculoskeletal shows his right lower ribs to be somewhat tender, somewhat inhaledrespiratory assist done by both resident physician and myself with some improvement in range of motion, patient tolerated well. Abdomen shows a mild degree of right upper abdominal tenderness. CBC, basic metabolic panel noted. CT reviewed both report as well as imagesshowing moderate amount of fecal load in the right and transverse colon. Human metapneumovirusappears to be the cause of his COPD exacerbation/hypoxia improving. Steroids, while being given predominantly for gout, are probably helping with this considerably. Continue doxycycline given COPD exacerbation. On room air. "Abdominal pain"this actually appears to be 2 different processes at playrib dysfunction as well as constipation. Fortunately biliary work-up is continuing to be more and more reassuring. Rib dysfunction/somatic dysfunction rib cageOMT as above ConstipationMiraLAX Gout/flarecolchicine, steroids, pain control. DVT prophylaxisresume home Eliquis. Subjective Patient seen bedside this morning. Patient states that he continues to have epigastric pain as well as right upper quadrant pain mostly when he coughs. States that his cough is improving at this time. Denies any chest pain or shortness of breath. Overall states that his health is getting better. Does state his right hand and right foot still bothering him. Review of Systems Review of Systems: All systems reviewed & are unremarkable except as noted in Subjective Physical Exam 2 Constitutional: WD/WN, vitals as above no acute distress Eyes: PERRL, conjunctivae normal, anicteric sclerae ENMT: external ear and nose normal, oropharynx normal Respiratory: normal respiratory effort Auscultation: lungs clear to auscultation bilaterally Left sided inhalation dysfunction of ribs 5-9 Cardiovascular: RRR, no murmur, no edema Gastrointestinal (Abdomen): Inspection/Auscultation: abdomen normal to inspection and normal bowel sounds Percussion/Palpation: + abdomen tender (Epigastric and right upper quadrant) Musculoskeletal: no cyanosis or clubbing, extremities motor strength 5/5 Skin: no rashes, warm and dry Psychiatric: A+Ox3, euthymic affect Results & Data Results & Data Vital Signs (Past 12 Hours) Vital Signs Temp Pulse Pulse Resp BP Pulse Ox O2 Del Method 08/15/22 04:12 36.5 C 78 16 90/57 L 90 Nasal Cannula 08/15/22 00:55 60 18 92 Nasal Cannula 08/14/22 23:05 36.7 C 60 16 94/59 L 92 Room Air 08/14/22 22:49 60 08/14/22 21:43 Room Air 08/14/22 21:06 36.8 C 60 16 94/61 L 93 Room Air 08/14/22 20:19 64 104/63 08/14/22 19:16 61 18 92 Nasal Cannula O2 Flow Rate 08/15/22 04:12 2 08/15/22 00:55 3 08/14/22 23:05 08/14/22 22:49 08/14/22 21:43 08/14/22 21:06 08/14/22 20:19 08/14/22 19:16 6 Resident Activity Tracking Resident Involvement: Resident Care Provided Care Provided: Adult Hospital Medicine (1) Pneumonia Laterality: right Lung location: unspecified part of lung Pneumonia type: due to unspecified organism Qualified Code(s): J18.9 - Pneumonia, unspecified organism (2) Gout Chronicity: acute Gout etiology: unspecified cause Gout site: multiple sites Qualified Code(s): M10.9 - Gout, unspecified (4) Abdominal pain Abdominal location: right upper quadrant Qualified Code(s): R10.11 - Right upper quadrant pain (5) Cough Cough type: subacute Qualified Code(s): R05.2 - Subacute cough
[2022-08-15 07:11] LABS: Hematocrit (blood only) 35.8 % (42.0-52.0); Hemoglobin 12.2 g/dl (14.0-18.0); Mean Corpuscular Hemoglobin 30.3 pg (25.0-34.0); Mean Corpuscular Hgb Conc 34.1 g/dL (32.0-36.0); Mean Corpuscular Volume 89.1 fL (80.0-100.0); Mean Platelet Volume 11.1 fL (9.4-12.4); Platelet Count 124 K/uL (130-400); RDW Coefficient of Variation 13.2 % (11.5-14.5); RDW Standard Deviation 42.9 fL (36.4-46.3); Red Blood Count 4.02 M/uL (4.70-6.10); White Blood Count 5.62 K/ul (4.8-10.8)
[2022-08-15 07:22] LABS: Basophils # (auto) 0.01 K/uL (0-0.2); Basophils % (auto) 0.2 %; Immature Granulocytes # (auto) 0.01 K/uL (0.01-0.20); Immature Granulocytes % (auto) 0.2 %; Lymphocytes # (auto) 0.26 K/uL (1.2-3.4); Lymphocytes % (auto) 4.6 %; Monocytes % (auto) 5.3 %; Neutrophils # (auto) 5.04 K/uL (1.40-6.50); Neutrophils % (auto) 89.7 %
[2022-08-15 07:33] LABS: Albumin Globulin Ratio 1.2 (0.9-2); Albumin Level 3.3 gm/dl (3.4-5.0); BUN Creatinine Ratio 23.6 (10-20); Bilirubin,Total 1.2 mg/dl (0.2-1.0); Calcium 8.5 mg/dl (8.6-10.3); Creatinine Clr Calc Pharmacy 49.4 ml/min; Est GFR (African American) 53.6 ml/min; Est GFR (Non-African American) 46.3 ml/min; Globulin 2.8 gm/dl (2.5-4.0); Potassium 4.3 mmol/L (3.5-5.1); Total Protein 6.1 gm/dl (6.0-8.3)
[2022-08-15] MEDS: FORMOTEROL 20 MCG/2 ML VIAL NEB SCH ×2 (08:17→19:51)
[2022-08-15] MEDS: BUDESONIDE 0.5 MG/2 ML VIAL (PULMICORT) NEB SCH ×2 (08:17→19:51)
[2022-08-15] MEDS: FLUTICASONE PROPIONATE NA SPR 16 GM BTL NAE SCH ×2 (09:15→20:48)
--- NOTE | 2022-08-15 09:18 | Nuclear Medicine Report ---
NM hepatobiliary CLINICAL HISTORY: 71 years-old Male with equivocal US/CT ?acute debi. Acute right upper quadrant ab dominal pain TECHNIQUE: Sequential anterior abdominal images were obtained through 60 minutes following the intra venous administration of 5.2 mCi of technetium-99m Choletec. A lateral image was also obtained. COMPARISON: CT abdomen and pelvis 08/14/2022, hepatobiliary scan 12/11/2015 FINDINGS: There is prompt, uniform accumulation of the tracer by the liver. There is normal filling of the int rahepatic ducts, common bile duct and normal excretion of the tracer into the duodenum. The gallblad elvia fills normally. IMPRESSION: Normal hepatobiliary study. No scintigraphic evidence for acute cholecystitis or common bile duct obstruction. ACT 112: Negative or not required by law. The above report was generated using voice recognition software. It may contain grammatical, syntax o r spelling errors. Electronically signed by: Hilario Lee M.D. 08/15/2022 9:17 AM
[2022-08-15] MEDS: MoRPHine SULFATE 4 MG/ML 1 ML CARP\\VIAL IV PRN (09:45)
--- NOTE | 2022-08-15 10:27 | Surgery Progress Note ---
Date of Service August 15, 2022 Assessment & Plan (1) CKD (chronic kidney disease) stage 3, GFR 30-59 ml/min: (2) Human metapneumovirus (hMPV) pneumonia: (3) COPD exacerbation: (4) Bronchitis: (5) ICD (implantable cardioverter-defibrillator), biventricular, in situ: (6) Ischemic cardiomyopathy: (7) Sustained ventricular tachycardia: (8) Chronic systolic (congestive) heart failure: (9) Acute cholecystitis: Plan 71-year-old with multiple medical problems including extensive cardiac history presents with worsening pneumonia as well as what appears to be an acute cholecystitis with possible choledocholithiasis. Today the LFTs are decreased albeit still slightly elevated. HIDA scan was negative. Continue IV fluids and IV antibiotics. MRCP as per GI this afternoon We will continue to follow, no surgical intervention required at this time Admission and Anticipated Discharge Date Admission Date: August 14, 2022 Subjective Some lower abdominal pain this morning. Normal HIDA scan this morning. LFTs decreased. Set for MRCP this afternoon. Physical Exam Constitutional: WD/WN, vitals as above Gastrointestinal (Abdomen): Inspection/Auscultation: abdomen normal to inspection and + abdomen distended Percussion/Palpation: + abdomen tender (Right and left upper quadrant) and abdomen soft; no guarding and abdomen not rigid Results & Data Vital Signs (Past 12 Hours) Vital Signs Temp Pulse Pulse Resp BP Pulse Ox O2 Del Method 08/15/22 08:00 60 08/15/22 08:00 Room Air, Nasal Cannula 08/15/22 08:19 67 18 95 Nasal Cannula 08/15/22 07:35 36.4 C L 62 17 94/54 L 93 Nasal Cannula 08/15/22 04:12 36.5 C 78 16 90/57 L 90 Nasal Cannula 08/15/22 00:55 60 18 92 Nasal Cannula 08/14/22 23:05 36.7 C 60 16 94/59 L 92 Room Air 08/14/22 22:49 60 O2 Flow Rate 08/15/22 08:00 08/15/22 08:00 2 08/15/22 08:19 3 08/15/22 07:35 3 08/15/22 04:12 2 08/15/22 00:55 3 08/14/22 23:05 08/14/22 22:49
[2022-08-15] MEDS: methylPREDNISolone 40 MG in SYRINGE 0 ML IV SCH (10:59)
[2022-08-15] MEDS: PANTOprazole 40 MG in SYRINGE 0 ML IV SCH (10:59)
--- NOTE | 2022-08-15 12:47 | Communication Note ---
Date of Service: August 15, 2022 Came by to see patient, off the floor probably getting MRCP. Will see later today or tomorrow
[2022-08-15] MEDS: ATORVASTATIN 20 MG TAB PO SCH (14:32)
[2022-08-15] MEDS: ASPIRIN 81 MG ECTAB PO SCH (14:32)
[2022-08-15] MEDS: CITALOPRAM 20 MG TAB PO SCH (14:32)
[2022-08-15] MEDS: CETIRIZINE HCL 10 MG TABLET PO SCH (14:32)
[2022-08-15] MEDS: guaiFENesin 600 MG TABCR PO SCH ×2 (14:32→20:47)
[2022-08-15] MEDS: COLCHICINE 0.6 MG TAB PO SCH ×2 (14:32→20:47)
[2022-08-15] MEDS: SOTALOL HCL 80 MG TAB PO SCH ×2 (14:32→20:47)
[2022-08-15] MEDS: METOPROLOL SUCC 25MG EXT REL TAB PO SCH (14:32)
[2022-08-15] MEDS ORDERED: COLCHICINE 0.6 MG TAB PO ONE (14:45)
--- NOTE | 2022-08-15 15:07 | Magnetic Resonance Report ---
MR MRCP CLINICAL HISTORY: r/o choledocholithiasis TECHNIQUE: Multiplanar multisequence MR images of the abdomen were obtained, as per MRCP protocol. . COMPARISON: Comparison is made to CT abdomen pelvis 08/14/2022 FINDINGS: Exam is limited by patient motion. Lower chest: No acute abnormality Liver: A few hepatic cysts are seen. Gallbladder and biliary tree: The gallbladder is distended with a few dependent stones seen. No sandi wall thickening is seen. Common bile duct measures up to 10 mm in diameter. No filling defects are s een to suggest stones. Pancreas: There are are cystic lesions in the pancreatic tail measuring up to 12 mm in diameter. Ulti mately to patient motion, the presence of a sidebranch connection to the main pancreatic duct is diff icult to ascertain. Spleen: Unremarkable. Adrenals: Unremarkable. Kidneys and ureters: Unremarkable. Bowel: Unremarkable. Lymph nodes Retroperitoneal: Unremarkable. Mesenteric: Unremarkable. Peritoneum: Normal Vessels: Unremarkable. Abdominal wall: Unremarkable. Bones: Degenerative changes in the visualized spine. IMPRESSION: 1. Limited exam due to patient motion. No sandi choledocholithiasis is seen. There is cholelithiasis without evidence of cholecystitis. 2. Pancreatic cystic lesions are seen, IPMN cannot be excluded. If further evaluation is desired, a follow-up MRCP can be performed. 3. Hepatic cysts are incidentally noted. ACT 112: Negative or not required by law. Electronically signed by: Armin Butts M.D. 08/15/2022 3:06 PM
[2022-08-15] MEDS ORDERED: POLYETHYLENE (MIRALAX) 17 GM PACK PO ONE (15:10)
--- NOTE | 2022-08-15 16:59 | Hospitalist Progress Note ---
Date of Service August 15, 2022 Assessment & Plan Admission and Anticipated Discharge Date Admission Date: August 14, 2022 Results & Data Results & Data Vital Signs (Past 12 Hours) Vital Signs Temp Pulse Pulse Resp BP Pulse Ox O2 Del Method 08/15/22 15:13 97.5 F L 64 18 109/61 93 Room Air 08/15/22 11:24 97.9 F 61 18 105/68 91 Room Air 08/15/22 08:00 60 08/15/22 08:00 Room Air, Nasal Cannula 08/15/22 08:19 67 18 95 Nasal Cannula 08/15/22 07:35 97.5 F L 62 17 94/54 L 93 Nasal Cannula O2 Flow Rate 08/15/22 15:13 08/15/22 11:24 08/15/22 08:00 08/15/22 08:00 2 08/15/22 08:19 3 08/15/22 07:35 3 PG Care Time/CCT Total # of Minutes Spent Total Time Spent with Patient: Total time spent is greater than 50% in coordination of care (as documented) at patient's floor/unit and/or counseling patient: Coding Level of Care Code None Diagnoses CPT Codes Musculoskeletal - Musculoskeletal: [address] 1-2 Body regions ([id number])
--- NOTE | 2022-08-15 16:59 | Billing Data ---
Date of Service August 15, 2022 Coding Level of Care Code 99906 SUB INP/OBS CARE MIN
--- NOTE | 2022-08-15 17:19 | Gastrointestinal Consultation ---
Date of Consultation August 15, 2022 Assessment & Plan (1) Abdominal pain: The way he describes his pain sounds to me like the coughing when he had pneumonia a few weeks ago caused him to either pull a muscle or strain rib cartilage/muscle connection. His pain is mainly with coughing and motion. He did not have it before he had his pneumonia and developed it while he was battling it. It does not seem to have any ties to eating so I doubt it is his gallbladder. His HIDA was negative as well. I think his lack of appetite may be related to starting colchicine. That is the only medication other than prednisone he remembers starting last week. Typically chronic nausea is medication related as well. I don't think EGD is needed at this time but can do if conditions change. History of Present Illness Reason for Consultation: abdominal pain Attending Physician: Naveed Starr, History of Present Illness 71 year old man with recent pneumonia admitted for fever and possible acute cholecystitis. He has been having two weeks of significant right upper abdominal pain that radiates around the ribs to his back. This pain bothers him mainly when he coughs or when he rolls over or sits up. It will bother him at night time as well but he can't tell if he moved at that time. He lost his appetite monday but prior to that he was able to eat and it did not cause pain. He had no vomiting although for a long time he has complained of nausea--long prior to the onset of this pain. He does admit that he was started on prednisone and "another medication" (colchicine) for gout last week prior to losing his appetite. Otherwise his stomach is not an issues. Bowel movements are good. He has had a negative HIDA scan and a negative MRCP. Allergies Allergy/AdvReac Type Severity Reaction Status Date / Time heparin Allergy Severe CAUSES HIT Verified 08/03/22 16:55 silver AdvReac Intermediate TOPICAL - Verified 08/03/22 16:55 BURNING, PAIN Home Medications Medication Instructions Recorded Confirmed Type sotalol 80 mg tablet 80 mg PO BID #180 tabs 09/27/21 08/03/22 Rx lorazepam 0.5 mg tablet 0.5 mg PO DAILY PRN anxiety #30 12/07/21 08/03/22 Rx tabs apixaban 5 mg tablet 5 mg PO BID #180 tabs 03/10/22 08/03/22 Rx aspirin 81 mg tablet,delayed 81 mg PO DAILY #90 tabs 03/10/22 08/03/22 Rx release atorvastatin 20 mg tablet 20 mg PO DAILY #90 tabs 03/10/22 08/03/22 Rx bumetanide 1 mg tablet 1 mg PO DAILY #90 tabs 03/10/22 08/03/22 Rx pantoprazole 40 mg tablet,delayed 40 mg PO DAILY #90 tabs 03/10/22 08/03/22 Rx release potassium chloride 10 mEq 20 meq PO DAILY #90 caps 03/10/22 08/03/22 Rx capsule,extended release citalopram 20 mg tablet 20 mg PO DAILY 05/23/22 08/03/22 History empagliflozin 10 mg tablet 10 mg PO DAILY #30 tabs 06/28/22 08/03/22 Rx (Jardiance) amoxicillin 500 mg capsule 2,000 mg PO DIRECTED PRN PRIOR 07/22/22 08/03/22 History TO DENTAL APPT. gabapentin 600 mg tablet 600 mg PO BID 07/22/22 08/03/22 History metoprolol succinate 50 mg 25 mg PO DAILY 07/22/22 08/03/22 History tablet,extended release 24 hr nitroglycerin 0.4 mg sublingual 0.4 mg sublingual DIRECTED PRN 07/22/22 08/03/22 History tablet Chest Pain ipratropium 20 mcg-albuterol 100 1 puff inhalation Q6H PRN 07/24/22 08/03/22 Rx mcg/actuation mist for inhalation cough/wheeze/shortness of breath (Combivent Respimat) #4 grams sacubitril 24 mg-valsartan 26 mg 1 tab PO BID 08/01/22 08/03/22 History tablet benzonatate 200 mg capsule 200 mg PO TID PRN cough #30 caps 08/03/22 08/03/22 Rx cetirizine 10 mg tablet (Allergy 10 mg PO DAILY #30 tabs 08/03/22 08/03/22 Rx Relief (cetirizine)) fluticasone propionate 50 1 spray intranasal BID #16 grams 08/03/22 08/03/22 Rx mcg/actuation nasal spray,suspension (Flonase Allergy Relief) zolpidem 10 mg tablet 5 - 10 mg PO HS PRN insomnia #30 08/12/22 Rx tabs Patient History Medical History Acute bronchitis EVIE (acute kidney injury) Anxiety Atrial flutter CKD (chronic kidney disease) stage 3, GFR 30-59 ml/min GERD (gastroesophageal reflux disease) Gouty arthritis of right foot HFrEF (heart failure with reduced ejection fraction) History of basal cell carcinoma Hypotension Insomnia Obstructive sleep apnea treated with continuous positive airway pressure (CPAP) Paroxysmal ventricular tachycardia (11/01/10) Phantom limb Skin lesion Surgical History S/P below knee amputation L leg 2013 S/P quadruple vessel bypass 2009, in [place] Family History Denies family history of Ovarian cancer Prostate cancer Breast cancer Colorectal cancer Social History Smoking Status: Former smoker Tobacco Type: Cigarettes Cigarettes Per Day: 20; Smoking End Date: 2004; Second Hand Exposure: No; Do You Dip or Chew Tobacco: No; Tobacco Cessation Education Requested by Patient: No Hx Alcohol Use: No Hx Substance Use: No Preferred Language: Mosotho Communication Ability: Effective Communication Ability Comment: hard of hearing Ocean Fishing Guide Required: No Beliefs That Will Affect Care: None marital status: Current Living Situation: Spouse current occupational status: retired Other Information That Helps Us Care for You: No Feels Safe at Home: Yes Safety Concerns: Feels Safe At This Time caffeine: Yes Dental Care, Regularly: Yes Seatbelt Use: always Sunscreen Use: Yes Assistive Devices: Cane, CPAP, Glasses, Prosthesis, Special Shoe and Walker Review of Systems Review of Systems: All systems reviewed & are unremarkable except as noted in HPI & below Physical Exam Constitutional: well nourished and + ill appearing Eyes: PERRL, conjunctivae normal, anicteric sclerae Respiratory: + cough Auscultation: + wheezes Cardiovascular: RRR, no murmur, no edema Gastrointestinal (Abdomen): Inspection/Auscultation: abdomen normal to inspection Percussion/Palpation: + abdomen tender (right upper abdomen and along rib cage) Results & Data Vital Signs (Past 12 Hours) Vital Signs Temp Pulse Pulse Resp BP Pulse Ox O2 Del Method 08/15/22 15:13 36.4 C L 64 18 109/61 93 Room Air 08/15/22 11:24 36.6 C 61 18 105/68 91 Room Air 08/15/22 08:00 60 08/15/22 08:00 Room Air, Nasal Cannula 08/15/22 08:19 67 18 95 Nasal Cannula 08/15/22 07:35 36.4 C L 62 17 94/54 L 93 Nasal Cannula O2 Flow Rate 08/15/22 15:13 08/15/22 11:24 08/15/22 08:00 08/15/22 08:00 2 08/15/22 08:19 3 08/15/22 07:35 3 Laboratory Results 08/15/22 08/15/22 08/14/22 Range/Units 06:14 06:14 17:15 WBC 5.62 (4.8-10.8) K/ul RBC 4.02 L (4.70-6.10) M/uL Hgb 12.2 L (14.0-18.0) g/dl Hct 35.8 L (42.0-52.0) % MCV 89.1 (80.0-100.0) fL MCH 30.3 (25.0-34.0) pg MCHC 34.1 (32.0-36.0) g/dL RDW Std Deviation 42.9 (36.4-46.3) fL RDW Coeff of Faby 13.2 (11.5-14.5) % Plt Count 124 L (130-400) K/uL MPV 11.1 (9.4-12.4) fL Immature Gran % (Auto) 0.2 % Neut % (Auto) 89.7 % Lymph % (Auto) 4.6 % Haywood % (Auto) 5.3 % Eos % (Auto) 0.0 % Baso % (Auto) 0.2 % Neut # (Auto) 5.04 (1.40-6.50) K/uL Lymph # (Auto) 0.26 L (1.2-3.4) K/uL Haywood # (Auto) 0.30 (0.11-0.59) K/uL Eos # (Auto) 0.00 (0-0.50) K/uL Baso # (Auto) 0.01 (0-0.2) K/uL Immature Gran # (Auto) 0.01 (0.01-0.20) K/uL Sodium 135 L (136-145) mmol/L Potassium 4.3 (3.5-5.1) mmol/L Chloride 101 (98-107) mmol/L Carbon Dioxide 25 (21-32) mmol/L Anion Gap 9 (3-11) BUN 35 H (6-23) mg/dl Creatinine 1.48 H D (0.6-1.4) mg/dl Est Cr Clr Drug Dosing 49.4 ml/min Est GFR ( Amer) 53.6 ml/min Est GFR (Non-Af Amer) 46.3 ml/min BUN/Creatinine Ratio 23.6 H (10-20) Glucose 136 H (70-99(Fasting)) mg/dl Calcium 8.5 L (8.6-10.3) mg/dl Total Bilirubin 1.2 H D (0.2-1.0) mg/dl AST 6 L (13-39) U/L ALT 5 L (7-52) U/L Alkaline Phosphatase 68 (34-104) U/L Total Protein 6.1 (6.0-8.3) gm/dl Albumin 3.3 L (3.4-5.0) gm/dl Globulin 2.8 (2.5-4.0) gm/dl Albumin/Globulin Ratio 1.2 (0.9-2) Urine Color Yellow Urine Appearance Clear (Clear) Urine pH 5.0 (4.5-7.5) Ur Specific [place] 1.025 (1.000-1.030) Urine Protein 2+ H (Negative) Urine Glucose (UA) 3+ H (Negative) Urine Ketones Negative (Negative) Urine Blood Negative (Negative) Urine Nitrite Negative (Negative) Urine Bilirubin Negative (Negative) Urine Urobilinogen Negative (Negative) Ur Leukocyte Esterase Negative (Negative) Urine RBC 0-4 (0-4) /hpf Urine WBC 0-5 (0-5) /hpf Ur Epithelial Cells 0-5 (0-5) /lpf Urine Bacteria Negative (Negative) Synovial Crystals 08/14/22 Range/Units 14:30 WBC (4.8-10.8) K/ul RBC (4.70-6.10) M/uL Hgb (14.0-18.0) g/dl Hct (42.0-52.0) % MCV (80.0-100.0) fL MCH (25.0-34.0) pg MCHC (32.0-36.0) g/dL RDW Std Deviation (36.4-46.3) fL RDW Coeff of Faby (11.5-14.5) % Plt Count (130-400) K/uL MPV (9.4-12.4) fL Immature Gran % (Auto) % Neut % (Auto) % Lymph % (Auto) % Haywood % (Auto) % Eos % (Auto) % Baso % (Auto) % Neut # (Auto) (1.40-6.50) K/uL Lymph # (Auto) (1.2-3.4) K/uL Haywood # (Auto) (0.11-0.59) K/uL Eos # (Auto) (0-0.50) K/uL Baso # (Auto) (0-0.2) K/uL Immature Gran # (Auto) (0.01-0.20) K/uL Sodium (136-145) mmol/L Potassium (3.5-5.1) mmol/L Chloride (98-107) mmol/L Carbon Dioxide (21-32) mmol/L Anion Gap (3-11) BUN (6-23) mg/dl Creatinine (0.6-1.4) mg/dl Est Cr Clr Drug Dosing ml/min Est GFR ( Amer) ml/min Est GFR (Non-Af Amer) ml/min BUN/Creatinine Ratio (10-20) Glucose (70-99(Fasting)) mg/dl Calcium (8.6-10.3) mg/dl Total Bilirubin (0.2-1.0) mg/dl AST (13-39) U/L ALT (7-52) U/L Alkaline Phosphatase (34-104) U/L Total Protein (6.0-8.3) gm/dl Albumin (3.4-5.0) gm/dl Globulin (2.5-4.0) gm/dl Albumin/Globulin Ratio (0.9-2) Urine Color Urine Appearance (Clear) Urine pH (4.5-7.5) Ur Specific [place] (1.000-1.030) Urine Protein (Negative) Urine Glucose (UA) (Negative) Urine Ketones (Negative) Urine Blood (Negative) Urine Nitrite (Negative) Urine Bilirubin (Negative) Urine Urobilinogen (Negative) Ur Leukocyte Esterase (Negative) Urine RBC (0-4) /hpf Urine WBC (0-5) /hpf Ur Epithelial Cells (0-5) /lpf Urine Bacteria (Negative) Synovial Crystals Diagnostic Findings Chest X-Ray 08/14/22 07:54 XR chest 1V portable CLINICAL HISTORY: Cough. COMPARISON STUDY: Chest CT March 30, 2022 and chest radiograph July 23, 2022. FINDINGS: No pneumothorax or pleural effusion is present. A left subclavian pacer/AICD is in place. There are median sternotomy wires. Cardiomegaly is unchanged. There is no evidence for overt pulmonary edema. There is possible left basilar opacity. IMPRESSION: 1. Possible left basilar opacity. Artifact is favored however consolidation could appear similar. 2. Cardiomegaly without evidence for pulmonary edema. ACT 112: Negative or not required by law. Electronically signed by: Guillermo Braden M.D. 08/14/2022 9:04 AM Wrist X-Ray 08/14/22 08:00 XR wrist RT min 3V routine CLINICAL HISTORY: wrist pain/swelling COMPARISON: None FINDINGS: Alignment of the right wrist is anatomic. There is no acute fracture. There is no suspicious osseous lesion. No erosive changes are identified. Dorsal hand and wrist soft tissue swelling is noted on lateral projection. Moderate degenerative changes within the right wrist are present. Vascular calcification is incidentally noted. IMPRESSION: 1. No acute fracture or dislocation within the right wrist. 2. Dorsal hand and wrist soft tissue swelling. 3. Moderate degenerative changes within the right wrist. ACT 112: Negative or not required by law. Electronically signed by: Guillermo Braden M.D. 08/14/2022 9:06 AM Abdomen/Pelvis CT 08/14/22 09:20 CT OF THE ABDOMEN AND PELVIS WITHOUT CONTRAST CLINICAL HISTORY: Right-sided abdominal pain. COMPARISON STUDY: CT of the abdomen and pelvis July 04, 2018 and renal ultrasound March 13, 2020. TECHNIQUE: Axial images of the abdomen and pelvis were obtained without IV contrast. Images were reviewed in the axial, sagittal, and coronal planes. Automated exposure control was utilized for the study. A dose lowering technique was utilized adhering to the principles of ALARA. FINDINGS: Right lower lobe airspace opacity with bronchial wall thickening and mild mucus plugging is noted. This is better depicted on the chest CT which will be reported separately. There are several old right-sided rib fractures. Evaluation of the abdomen and pelvis is suboptimal on this unenhanced exam. Multiple hypodense hepatic lesions are similar to CT of July 04, 2018. These favor cysts. There is mild dilatation of the common bile duct, measuring approximately 1 cm. There is no pancreatic ductal dilatation. There are several gallstones within the gallbladder. The gallbladder is mildly distended. There may be minimal pericholecystic stranding. Spleen, adrenal glands and pancreas are unremarkable. There is no peripancreatic stranding. There is no evidence for a bowel obstruction. Colonic diverticulosis is noted. No evidence for acute diverticulitis. The appendix is normal. Small fat-containing umbilical hernia is present. There is no ascites. No lymphadenopathy. No acute fractures are present within the visualized skeletal structures. Grade I anterolisthesis of L5 on S1 due to bilateral L5 pars defect is unchanged. IMPRESSION: 1. Cholelithiasis with moderate gallbladder distention and possible trace pericholecystic stranding. Acute cholecystitis cannot be excluded. Right upper quadrant ultrasound could be obtained for further evaluation. 2. Mild dilatation of the common bile duct which could be correlated with liver function tests. 3. Right lower lobe airspace opacity which favors pneumonia. 4. No evidence for a bowel obstruction. Colonic diverticulosis without evidence for acute diverticulitis. ACT 112: Negative or not required by law. Electronically signed by: Guillermo Braden M.D. 08/14/2022 10:[address] 08/14/22 09:20 CT OF THE CHEST WITHOUT IV CONTRAST CLINICAL HISTORY: Cough. Shortness of breath. COMPARISON STUDY: Chest CTs December 09, 2017 and March 30, 2022 and chest radiograph performed earlier today TECHNIQUE: Axial images of the chest were obtained without IV contrast. Images were reviewed in the axial, sagittal, and coronal planes. IV contrast was not administered for this examination. Automated exposure control was utilized for the study. A dose lowering technique was utilized adhering to the principles of ALARA. FINDINGS: Left subclavian pacer/AICD is in place. There are median sternotomy wires and postoperative findings from bypass grafting. Several mildly enlarged mediastinal lymph nodes are noted. Index subcarinal lymph node on axial image 179 of 336 measures 1.4 cm in short axis diameter. This is similar to CT of December 09, 2017. There is no pericardial effusion. Moderate cardiomegaly and extensive coronary artery calcification are noted. No pneumothorax or pleural effusion is present. Emphysema. There has been interval development of moderate right lower lobe airspace opacity since chest CT of March 30, 2022. There is associated bronchial wall thickening with mild mucus plugging. There is also minimal right upper lobe airspace opacity. A few pulmonary nodules measuring up to 8 mm are similar to CT of December 09, 2017. These are likely benign. Subpleural left upper lobe density on image [address] of December 09, 2017. This favors scarring. No fracture or suspicious lesion within the bony thorax is noted. The abdomen and pelvis CT will be reported separately. IMPRESSION: 1. Moderate right lower lobe airspace opacity and mild right upper lobe airspace opacity which has developed since chest CT of March 30, 2022. The findings represent an infectious process such as bronchopneumonia. Follow-up chest CT in 3 months to ensure resolution is recommended. 2. Emphysema. 3. Cardiomegaly and extensive coronary calcification. 4. No change in several pulmonary nodules measuring up to [address] of December 09, 2017. These are likely benign. ACT 112: Negative or not required by law. Electronically signed by: Guillermo Braden M.D. 08/14/2022 10:30 AM Liver Ultrasound 08/14/22 11:00 US liver CLINICAL HISTORY: RUQ US - assess for acute cholecystitis COMPARISON STUDY: CT of the abdomen and pelvis performed earlier today. Right upper quadrant ultrasound December 15, 2015. FINDINGS: This exam is compromised by suboptimal penetration. A few small hepatic cysts are present. Gallstones within the gallbladder are noted. The gallbladder is moderately distended. There is no gallbladder wall thickening. Equivocal sonographic Valdivia sign was elicited. The common bile duct is largely obscured as is the pancreas. There is no right hydronephrosis. IMPRESSION: 1. Cholelithiasis and moderate gallbladder distention. Possible sonographic Valdivia sign. These findings are equivocal for acute cholecystitis. A nuclear medicine hepatobiliary scan could be obtained for further evaluation. 2. Largely obscured common bile duct and pancreas. ACT 112: Negative or not required by law. Electronically signed by: Guillermo Braden M.D. 08/14/2022 12:21 PM Cholangiopancreatography MRI 08/15/22 07:03 MR MRCP CLINICAL HISTORY: r/o choledocholithiasis TECHNIQUE: Multiplanar multisequence MR images of the abdomen were obtained, as per MRCP protocol. . COMPARISON: Comparison is made to CT abdomen pelvis 08/14/2022 FINDINGS: Exam is limited by patient motion. Lower chest: No acute abnormality Liver: A few hepatic cysts are seen. Gallbladder and biliary tree: The gallbladder is distended with a few dependent stones seen. No sandi wall thickening is seen. Common bile duct measures up to 10 mm in diameter. No filling defects are seen to suggest stones. Pancreas: There are are cystic lesions in the pancreatic tail measuring up to 12 mm in diameter. Ultimately to patient motion, the presence of a sidebranch connection to the main pancreatic duct is difficult to ascertain. Spleen: Unremarkable. Adrenals: Unremarkable. Kidneys and ureters: Unremarkable. Bowel: Unremarkable. Lymph nodes Retroperitoneal: Unremarkable. Mesenteric: Unremarkable. Peritoneum: Normal Vessels: Unremarkable. Abdominal wall: Unremarkable. Bones: Degenerative changes in the visualized spine. IMPRESSION: 1. Limited exam due to patient motion. No sandi choledocholithiasis is seen. There is cholelithiasis without evidence of cholecystitis. 2. Pancreatic cystic lesions are seen, IPMN cannot be excluded. If further evaluation is desired, a follow-up MRCP can be performed. 3. Hepatic cysts are incidentally noted. ACT 112: Negative or not required by law. Electronically signed by: Armin Butts M.D. 08/15/2022 3:06 PM Hepatobiliary Scan Nuclear Medicine 08/15/22 12:48 NM hepatobiliary CLINICAL HISTORY: 71 years-old Male with equivocal US/CT ?acute debi. Acute right upper quadrant abdominal pain TECHNIQUE: Sequential anterior abdominal images were obtained through 60 minutes following the intravenous administration of 5.2 mCi of technetium-99m Choletec. A lateral image was also obtained. COMPARISON: CT abdomen and pelvis 08/14/2022, hepatobiliary scan 12/11/2015 FINDINGS: There is prompt, uniform accumulation of the tracer by the liver. There is normal filling of the intrahepatic ducts, common bile duct and normal excretion of the tracer into the duodenum. The gallbladder fills normally. IMPRESSION: Normal hepatobiliary study. No scintigraphic evidence for acute cholecystitis or common bile duct obstruction. ACT 112: Negative or not required by law. The above report was generated using voice recognition software. It may contain grammatical, syntax or spelling errors. Electronically signed by: Hilario Lee M.D. 08/15/2022 9:17 AM (1) Abdominal pain Abdominal location: right upper quadrant Qualified Code(s): R10.11 - Right upper quadrant pain
[2022-08-15] MEDS: GABAPENTIN 600 MG TAB PO SCH (20:47)
[2022-08-15] MEDS: APIXABAN 5 MG TABLET PO SCH (20:48)
[2022-08-15] MEDS ORDERED: ZOLPIDEM TARTRATE 5 MG TAB PO PRN (22:12)
[2022-08-16] MEDS: DOXYCYCLINE HYCLATE 100 MG in DEXTROSE 5% 100 ML IV SCH (01:46)
[2022-08-16] MEDS: IPRATROPIUM BROMIDE NEB SOLN 0.02% 2.5 ML VIAL INH SCH ×2 (01:52→07:00)
[2022-08-16] MEDS: LEVALBUTEROL HCL 0.63 MG/3 ML NEB NEB SCH ×2 (01:54→07:00)
--- NOTE | 2022-08-16 06:51 | Communication Note ---
Date of Service: August 16, 2022 HIDA scan and MRCP both negative for acute cholecystitis. will sign off. please call with questions/concerns
[2022-08-16] MEDS: FORMOTEROL 20 MCG/2 ML VIAL NEB SCH (06:52)
[2022-08-16] MEDS: BUDESONIDE 0.5 MG/2 ML VIAL (PULMICORT) NEB SCH (06:52)
[2022-08-16 07:38] LABS: Basophils # (auto) 0.01 K/uL (0-0.2); Basophils % (auto) 0.2 %; Hematocrit (blood only) 35.2 % (42.0-52.0); Immature Granulocytes # (auto) 0.02 K/uL (0.01-0.20); Immature Granulocytes % (auto) 0.4 %; Lymphocytes # (auto) 0.32 K/uL (1.2-3.4); Lymphocytes % (auto) 5.6 %; Mean Corpuscular Hgb Conc 34.1 g/dL (32.0-36.0); Monocytes # (auto) 0.34 K/uL (0.11-0.59); Neutrophils # (auto) 5.01 K/uL (1.40-6.50); Neutrophils % (auto) 87.8 %; Platelet Count 150 K/uL (130-400); RDW Standard Deviation 42.1 fL (36.4-46.3)
--- NOTE | 2022-08-16 07:38 | Discharge Summary ---
Date of Service August 16, 2022 Admission HPI Per Admitting Provider Ninfa Ruggiero is a 71 year old male who presents to the ER with right lower quadrant abdominal pain, right wrist and right ankle pain and swelling and cough. History taking somewhat difficult given patients multitude of symptoms and unclear timeframe. Abdominal pain: epigastric and RUQ abdomen, radiates to right side of his back, intermittently gets worse but never fully resolved since started, worse on palpation but no worse with eating. Chills for the last month. No fever, nausea, vomiting, change in bowels, diarrhea, constipation, melena or bright red blood in stool. Respiratory symptoms: chronic cough worse at night/evenings with associated shortness of breath going on since March but worse the last month. However, no worse since his last admission in July. During his last admission he had a workup including negative CXR for PNA and Biofire PCR. Associated chills with this timeframe but no fever. No nasal congestion, sinus pain, postnasal drip. He was discharged with Combivent inhaler for presumed COPD/acute bronchitis which he has been taking twice a day but he has not found this helpful.He has noticed loss of taste for the last two days. Inflammatory polyarthritis: started July 18 per prior H&P. He started Jardiance on 06/28 but no other med changes around this time. Admitted from July 22 - 2022 with right foot pain with initial concern for cellulitis but diagnosis changed to gouty arthritis although no aspiration was performed and no history of this but tophi present and classical appearance. NSAIDs avoided due to CKD and Eliquis use. Dramatic improvement with steroids and he was discharged on 7 days of prednisone. He reports his right foot was doing much better until he stopped the steroids and right foot swelling recurred just a few days after this getting progressively worse. He right wrist is also now significantly swollen for the last 3 days getting progressively worse. Admission Exam Per Admitting Provider Constitutional: WD/WN, vitals as above Eyes: PERRL, conjunctivae normal, anicteric sclerae Respiratory: normal respiratory effort, + cough and able to speak in complete sentences; no respiratory distress and no stridor Cardiovascular: Rate/Rhythm: regular rate and regular rhythm Gastrointestinal (Abdomen): Inspection/Auscultation: abdomen not distended Percussion/Palpation: + abdomen tender (RUQ/epigastric pain) and abdomen soft; no guarding and abdomen not rigid Musculoskeletal: right dorsal wrist swelling and erythema, right ankle swelling and erythema Skin: no rashes, warm and dry Neurologic: moves all extremities and awake; not confused Psychiatric: A+Ox3, euthymic affect Principal Diagnosis Human metapneumovirus pneumonia Discharge Exam Constitutional WD/WN, vitals as above no acute distress Eyes PERRL, conjunctivae normal, anicteric sclerae ENMT external ear and nose normal, oropharynx normal Respiratory normal respiratory effort Auscultation: lungs clear to auscultation bilaterally Cardiovascular RRR, no murmur, no edema Gastrointestinal (Abdomen) Inspection/Auscultation: abdomen normal to inspection and normal bowel sounds Percussion/Palpation: + abdomen tender (Epigastric and right upper quadrant) Musculoskeletal no cyanosis or clubbing, extremities motor strength 5/5 Skin no rashes, warm and dry Psychiatric A+Ox3, euthymic affect Discharge Data Allergies Allergy/AdvReac Type Severity Reaction Status Date / Time heparin Allergy Severe CAUSES HIT Verified 08/03/22 16:55 silver AdvReac Intermediate TOPICAL - Verified 08/03/22 16:55 BURNING, PAIN Consultations 08/14/22 10:47 ED Decision to Admit Stat 08/14/22 12:21 Consult Orthopedic Surgery Routine 08/14/22 12:48 Consult General Surgery Routine 08/14/22 15:50 Consult Gastroenterology Routine Ordered Studies 08/14/22 09:20 CT Abd and Pelvis [CT abd pelvis wo con] Stat CT chest diagnostic wo con Stat 08/14/22 11:00 US liver Stat 08/15/22 07:03 MR MRCP Routine Hospital Course (1) Pneumonia: (2) Gout: (3) Pain in right wrist: (4) Abdominal pain: (5) Cough: (6) Right wrist effusion: (7) CKD (chronic kidney disease) stage 3, GFR 30-59 ml/min: (8) Human metapneumovirus (hMPV) pneumonia: (9) COPD exacerbation: (10) Obstructive sleep apnea: Plan #RUQ pain Patiently initially worked up for acute cholecystitis/choledocholithiasis Patient's HIDA scan and MRCP were negative. Right upper quadrant pain most likely secondary to rib dysfunction rather than. Was started on metronidazole and ceftriaxone, will DC due to patient's symptoms most likely not result of any hepatobiliary dysfunction. Bilirubin came down to 1.2 from 2.8. AST and ALT well, alk phos normal. Abdominal pain might be caused by constipation, patient should continue MiraLAX once a day as needed for constipation. #Human metapneumovirus (hMPV) pneumonia #COPD exacerbation Mild consolidative changes on CT, no leukocytosis and Pro-Javi negative. Incentive spirometer, Flutter valve, Guaifenesin BID, and Dextromethorphan PRN for cough Medrol 60 mg IV on admission and then 40 mg daily, Levalbuterol/ipratropium Nebs q6h, formoterol/budesonide NEB BID Doxycycline 100 mg twice daily for 7 days. Sent prescription to pharmacy. We will send in prednisone taper to pharmacy. #Left rib inhalation dysfunction Inhaled respiratory assist done to left rib cage. Recommend follow-up with PCP in 1 week and to consider OMT treatment if pain is not resolved. #Gout flare #Right wrist effusion Given only recently started having joint flare ups this is not a definitive diagnosis as not previously aspirated but he appears to have an inflammatory polyarthritis without prior diagnosis of autoimmune conditions since it improved with prednisone previously. ?related to dehydration after starting Jardiance. Uric acid level not particularly useful during acute flare ups, ideally can be measured on follow up as likely to need allopurinol once flare up resolved with colchicine coverage during initiation. Given colchicine during admission. As well as Solu-Medrol. Prednisone taper given to the patient. She will follow-up in 1 week with PCP. Orthopedics consulted and synovial fluid removed from right wrist. #Paroxysmal ventricular tachycardia a. fib/flutter/sustained VT s/p ICD placement & multiple (6) ablations 2009- 2018; Last 09/2018 [facility] Continue sotalol Mg normal #Ischemic cardiomyopathy Continue metoprolol and Entresto. #Chronic systolic (congestive) heart failure: Currently appears euvolemic. No interventions needed at this time. #CAD (coronary artery disease), [place] coronary artery Continue asa, atorvastatin Metoprolol as above Eliquis as above #CKD (chronic kidney disease) stage 3, GFR 30-59 ml/min: At baseline #GERD (gastroesophageal reflux disease) Continue pantoprazole #Obstructive sleep apnea: Continue CPAP #ICD (implantable cardioverter-defibrillator), biventricular, in situ No issues during admission. Was monitored on telemetry. #Anxiety: Continue citalopram #Phantom limb Continue gabapentin Total Time Total Time Spent Total Time Spent (In Minutes): <30 Discharge Plan Discharge Items Patient Disposition: Home - Self-Care Reason For Visit: ACUTE ELVIA, METAPNEUMOVIRUS, GOUT Discharge Diagnosis: Viral pneumonia, rib dysfunction, and acute gout flare Activity: Resume your previous activity Non-emergency contact: Primary Care Provider Call non-emergency contact if: your pain is unusual for you and your temperature is above 101.5 Follow-up/Referrals: Linn Vazquez MD [Primary Care Provider] - (Patient prefers to make own appointment) Diet: Heart Healthy Addtl Attending Provider Instructions: You were admitted to the hospital for bilateral pneumonia, rib dysfunction, and acute gout flare. You were treated with steroids. A discharge summary will be sent to your primary care physician to ensure continuity of care. Please bring this discharge summary with you to your next office appointment so that your provider can review it at that time. Follow-up appointments: * We have requested a follow-up appointment with your primary care physician within one week of discharge. Please call their office if you do not hear from them. Their phone number is [phone]. * Keep all your follow-up appointments as already scheduled. If you cannot make an appointment, notify your provider. Medications: Your medication list has been reviewed and reconciled upon discharge to ensure accuracy and continuity of care. An updated list of all your medications is included with your hospital discharge paperwork. Please review this list closely, and make note of any changes. * We sent in a new medication called doxycycline to your pharmacy. Please take doxycycline 100 mg twice a day for 7 days. * We sent in a new medication called prednisone to your pharmacy. Please take prednisone on a taper basis as instructed on your medication when you pick it up. * You should take MiraLAX 17 g in the morning for constipation as needed. You may apple picker MiraLAX [id number]. * You may use [id number] Tylenol or ibuprofen for pain control. * If you have any issues filling these prescriptions, please call [phone] and ask to leave a message for Dr. Albarran. * Take your medications as instructed; do not skip a dose of your medicines. Make sure all of your doctors know every medicine you are taking (including josk-[id number] medicines, vitamins, and supplements). Call your primary care provider before taking any new medicines (including over- the-counter medicines, vitamins, and supplements), because some of these may interact with your current medications, or may make your symptoms worse. Tell your primary care provider if you cannot afford your medications. CONTACT YOUR PRIMARY CARE PROVIDER if you experience any of the following: * Worsening of symptoms * Fever, chills, or fatigue * Difficulty following your treatment plan, or difficulty taking medications CALL 911 OR GO TO THE EMERGENCY DEPARTMENT if you experience any of the following: * Sudden, severe abdominal pain or nausea/vomiting * Severe chest pain, or chest pain that radiates (moves) to your jaw or arm * Sudden, severe shortness of breath or difficulty breathing Thank you for allowing us to participate in your care. Pending Studies at Discharge: No Stand-Alone Forms: [facility] [employer], Smoking Cessation Medications and DC Order Prescriptions: New polyethylene glycol 3350 [Miralax] 17 gram Powder In Packet 17 g PO DAILY PRN (Reason: Constipation) Qty: 14 0RF doxycycline hyclate 100 mg capsule 100 mg PO BID 7 Days Qty: 14 0RF prednisone 10 mg tablet 10 mg PO DIRECTED Qty: 20 0RF Rx Instructions: see taper instructions day 1=40mg, day 2=40mg, day 3=30mg, day 4=30mg, day 5=20mg, day 6=20mg, day 7=10mg, day 8=10mg Continued sotalol 80 mg tablet 80 mg PO BID Qty: 180 3RF sacubitril-valsartan 24-26 mg tablet 1 tab PO BID zolpidem 10 mg tablet 5 - 10 mg PO HS PRN (Reason: insomnia) Qty: 30 0RF lorazepam 0.5 mg tablet 0.5 mg PO DAILY PRN (Reason: anxiety) Qty: 30 0RF citalopram 20 mg tablet 20 mg PO DAILY Jardiance 10 mg tablet 10 mg PO DAILY Qty: 30 2RF apixaban 5 mg tablet 5 mg PO BID Qty: 180 3RF aspirin 81 mg tablet,delayed release (DR/EC) 81 mg PO DAILY Qty: 90 3RF atorvastatin 20 mg tablet 20 mg PO DAILY Qty: 90 3RF bumetanide 1 mg tablet 1 mg PO DAILY Qty: 90 3RF pantoprazole 40 mg tablet,delayed release (DR/EC) 40 mg PO DAILY Qty: 90 3RF potassium chloride 10 mEq capsule, extended release 20 meq PO DAILY Qty: 90 3RF benzonatate 200 mg capsule 200 mg PO TID PRN (Reason: cough) Qty: 30 0RF cetirizine [Allergy Relief (cetirizine)] 10 mg tablet 10 mg PO DAILY Qty: 30 0RF fluticasone propionate [Flonase Allergy Relief] 50 mcg/actuation spray,suspension 1 spray intranasal BID Qty: 16 2RF Rx Instructions: administer into each nostril nitroglycerin 0.4 mg tablet, sublingual 0.4 mg sublingual DIRECTED PRN (Reason: Chest Pain) amoxicillin 500 mg capsule 2,000 mg PO DIRECTED PRN (Reason: PRIOR TO DENTAL APPT.) gabapentin 600 mg tablet 600 mg PO BID metoprolol succinate 50 mg tablet extended release 24 hr 25 mg PO DAILY Combivent Respimat 20-100 mcg/actuation mist 1 puff inhalation Q6H PRN (Reason: cough/wheeze/shortness of breath) Qty: 4 0 RF Discharge Orders: Discharge Order (Routine); Ordered 08/16/22 Ordered By: Rohit Albarran Admission Data Admit Date/Time: 08/14/22 11:45 Attending Provider: Naveed Starr Admit Provider: Santino Avalos Primary Care Provider: Linn Vazquez Other Providers: Santino Avalos ; Aman Zapata ; Geovanni Paz ; Aletha Viveros Jr Other Interventions: Discharge Summary Assessment (RN) Last Done: 08/16/22 11:58 Supervising Physician Co-Signing Physician Notes I personally examined the patient and verified all carrillo points of history and exam, discussed case, and agree with decision making with Dr Albarran Still some right-sided rib pain. Also no bowel movement yet. Otherwise breathing feels better and feels up to going home, would like to go home. Vitals noted, in general he is awake and alert pleasant no distress. HEENT normocephalic atraumatic mucous membranes moist. Osteopathic/musculoskeletal shows his right lower ribs to be somewhat tender, somewhat inhaledbetter than yesterdayrespiratory assist done again, patient tolerated well. Abdomen shows a mild degree of right upper abdominal tenderness similar to yesterday no guarding rebound or rigidity. CBC, basic metabolic panel noted. Human metapneumovirusappears to be the cause of his COPD exacerbation/hypoxiaimproving. Safe/stable for homeprednisone taper, finish course of doxycycline. Outpatient follow-up. "Abdominal pain"this actually appears to be 2 different processes at playrib dysfunction as well as constipation. Fortunately biliary work-up is extremely reassuring, and essentially negative Rib dysfunction/somatic dysfunction rib cageOMT as above ConstipationMiraLAX Gout/flarecolchicine, steroids, outpatient follow-up. We discussed yesterday and today whether or not prophylactic treatment would be warranted, given this is his first ever gout flareups that he remembers, and it came in the context of being acutely ill otherwise, he and I agreed to treat this as a "one-time" episode for now, and if he has any recurrences, then can consider prophylaxis treatment. DVT prophylaxison home Cesar.
[2022-08-16] MEDS: CETIRIZINE HCL 10 MG TABLET PO SCH (07:49)
[2022-08-16] MEDS: CITALOPRAM 20 MG TAB PO SCH (07:49)
[2022-08-16] MEDS: guaiFENesin 600 MG TABCR PO SCH (07:51)
[2022-08-16] MEDS: ATORVASTATIN 20 MG TAB PO SCH (07:51)
[2022-08-16] MEDS: ASPIRIN 81 MG ECTAB PO SCH (07:51)
[2022-08-16] MEDS: APIXABAN 5 MG TABLET PO SCH (07:51)
[2022-08-16] MEDS: FLUTICASONE PROPIONATE NA SPR 16 GM BTL NAE SCH (07:52)
[2022-08-16] MEDS: COLCHICINE 0.6 MG TAB PO SCH (07:52)
[2022-08-16] MEDS ORDERED: POLYETHYLENE (MIRALAX) 17 GM PACK ONE (07:54)
[2022-08-16 07:57] LABS: Albumin Globulin Ratio 1.2 (0.9-2); Albumin Level 3.2 gm/dl (3.4-5.0); BUN Creatinine Ratio 28.7 (10-20); Bilirubin,Total 0.8 mg/dl (0.2-1.0); Calcium 8.5 mg/dl (8.6-10.3); Est GFR (African American) 55.9 ml/min; Est GFR (Non-African American) 48.2 ml/min; Globulin 2.6 gm/dl (2.5-4.0); Potassium 4.4 mmol/L (3.5-5.1); Total Protein 5.8 gm/dl (6.0-8.3)
[2022-08-16] MEDS ORDERED: POLYETHYLENE (MIRALAX) 17 GM PACK PO SCH (09:00)
[2022-08-16] MEDS: METOPROLOL SUCC 25MG EXT REL TAB PO SCH (10:14)
[2022-08-16] MEDS: SOTALOL HCL 80 MG TAB PO SCH (10:14)
[2022-08-16] MEDS: methylPREDNISolone 40 MG in SYRINGE 0 ML IV SCH (11:45)
[2022-08-16] MEDS: PANTOprazole 40 MG in SYRINGE 0 ML IV SCH (11:45)
--- NOTE | 2022-08-16 16:58 | Billing Data ---
Date of Service August 16, 2022 Coding Level of Care Code 54854 IN/OBS DISCH 30 MIN/LESS
== END 2022-08-16 13:38 | disposition home or self-care (01) ==
LOC: ED 07:44 → 2S 11:45 → INTOOBSV 11:45 → SUATTDRO 11:45 → 2S 12:19

== ENCOUNTER 2024-09-08 20:04 | Observation (INO) ==
[2024-09-08] MEDS: ASPIRIN CHEW 324 MG PO STA (20:30)
[2024-09-08 20:48] LABS: BUN Creatinine Ratio 10.4 (10-20); Calcium 9.2 mg/dl (8.6-10.3); Creatinine Clr Calc Pharmacy 47.6 ml/min; Potassium 4.1 mmol/L (3.5-5.1)
[2024-09-08] MEDS: MoRPHine SULFATE 2 MG/ML CARP IV STA (20:49)
[2024-09-08 20:54] LABS: Troponin I High Sensitivity 6.6 pg/ml (0-20)
[2024-09-08 21:05] LABS: INR 1.1 (0.9-1.1); Partial Thromboplastin Ratio 1.1; Partial Thromboplastin Time 29 Seconds (21-31); Prothrombin Time 11.6 Seconds (9.0-12.0)
[2024-09-08 21:48] LABS: Basophils # (auto) 0.04 K/uL (0.00-0.20); Basophils % (auto) 0.6 %; Eosinophils # (auto) 0.12 K/uL (0.00-0.50); Eosinophils % (auto) 1.9 %; Hematocrit (blood only) 45.4 % (42.0-52.0); Hemoglobin 15.3 g/dl (14.0-18.0); Immature Granulocytes # (auto) 0.02 K/uL (0.01-0.20); Immature Granulocytes % (auto) 0.3 %; Lymphocytes # (auto) 0.91 K/uL (1.20-3.40); Lymphocytes % (auto) 14.6 %; Mean Corpuscular Hemoglobin 30.7 pg (25.0-34.0); Mean Corpuscular Hgb Conc 33.7 g/dL (32.0-36.0); Mean Platelet Volume 11.6 fL (9.4-12.4); Monocytes # (auto) 0.48 K/uL (0.11-0.59); Monocytes % (auto) 7.7 %; Neutrophils # (auto) 4.68 K/uL (1.40-6.50); Neutrophils % (auto) 74.9 %; Platelet Count 180 K/uL (130-400); RDW Coefficient of Variation 12.5 % (11.5-14.5); RDW Standard Deviation 41.7 fL (36.4-46.3); Red Blood Count 4.99 M/uL (4.70-6.10); White Blood Count 6.25 K/ul (4.8-10.8)
[2024-09-08 22:05] LABS: iSTAT Creatinine 1.2 mg/dl (0.6-1.3); iSTAT Hemoglobin 14.3 g/dl (14.0-18.0); iSTAT Ionized Calcium 1.18 mmol/l (1.12-1.32); iSTAT Potassium 3.8 mmol/L (3.3-5.0)
--- NOTE | 2024-09-08 23:34 | History & Physical Report ---
Date of Service September 08, 2024 Assessment & Plan (1) Chest pain: (2) HFrEF (heart failure with reduced ejection fraction): (3) CKD (chronic kidney disease) stage 3, GFR 30-59 ml/min: (4) Obstructive sleep apnea: (5) ICD (implantable cardioverter-defibrillator), biventricular, in situ: (6) Ischemic cardiomyopathy: (7) CAD (coronary artery disease), [place] coronary artery: (8) Chronic pain syndrome: (9) Hypertension: (10) Hyperlipidemia LDL goal <70: (11) Atrial flutter: Plan 73 year old male with PMHx that includes CAD, paroxysmal A-fib/flutter, HFrEF, CKD, RHIANNA, HTN, and HLD presenting with chest pain: #Chest Pain: Unclear etiology, differential includes unstable angina vs GERD vs costochondritis vs other Negative trop x2, repeat in AM EKG without overt ischemic changes, though this may be obscured d/t paced rhythm Despite fairly low suspicion, CTA chest obtained, which was negative for dissection or PE TTE ordered, pending Cardiology consult appreciated Tylenol, morphine PRN for pain control AM labs #HFrEF: Continue Entresto, Jardiance, Metoprolol, Bumex #A-fib: Continue Sotalol and Eliquis #CAD: Continue Aspirin and statin #Chronic pain: Continue Gabapentin #Anxiety, insomnia: Continue Zoloft, Ativan #RHIANNA: Continue CPAP qHS Dispo: Admit PCU FEN/GI: HH diet VTE ppx: Eliquis DNR/DNI History of Present Illness Primary Care Provider: Linn Forbes MD 73 year old male with PMHx that includes CAD, paroxysmal A-fib/flutter, HFrEF, CKD, RHIANNA, HTN, and HLD presenting with chest pain. Chest pain developed shortly after discharge from [facility] on 08/28, describes as an intermittent sensation of substernal chest pressure that became constant and more severe, 10/10 today prior to arrival. Notes associated radiation into back and arms. Also notes shortness of breath today. No positional relation, non- exertional, no postprandial exacerbation. Denies recent illness, fever/chills. Pain improved with aspirin and morphine after arrival to ED. Hospitalization in August was due to intractable abdominal pain, s/p cholecystectomy and ERCP to remove stones from common bile duct. During this perioperative period, Eliquis was held for roughly 10 days, resumed 09/01. Allergies Allergy/AdvReac Type Severity Reaction Status Date / Time heparin Allergy Severe CAUSES HIT Verified 09/05/24 10:46 silver AdvReac Intermediate TOPICAL - Verified 09/05/24 10:46 BURNING, PAIN Home Medications Medication Instructions Recorded Confirmed Type aspirin 81 mg tablet,delayed 81 mg PO DAILY #90 tabs 03/10/22 09/17/24 Rx release empagliflozin 10 mg tablet 10 mg PO DAILY #90 tabs 11/13/23 09/17/24 Rx (Jardiance) CPAP Machine #1 ea 02/23/24 09/08/24 Rx apixaban 5 mg tablet 5 mg PO BID #180 tabs 02/23/24 09/17/24 Rx atorvastatin 20 mg tablet 20 mg PO DAILY #90 tabs 02/23/24 09/17/24 Rx bumetanide 0.5 mg tablet 0.5 mg PO DAILY #90 tabs 02/23/24 09/17/24 Rx gabapentin 600 mg tablet 600 mg PO HS #90 tabs 02/23/24 09/17/24 Rx metoprolol succinate 25 mg 25 mg PO DAILY #90 tabs 02/23/24 09/17/24 Rx tablet,extended release 24 hr nitroglycerin 0.4 mg sublingual 0.4 mg sublingual DIRECTED PRN 04/15/24 09/17/24 Rx tablet Chest Pain #10 tabs pantoprazole 40 mg tablet,delayed 40 mg PO DAILY #90 tabs 06/25/24 09/17/24 Rx release sacubitril 24 mg-valsartan 26 mg 0.5 tab PO BID #180 tabs 07/11/24 09/17/24 Rx tablet potassium chloride 10 mEq 10 meq PO DAILY #90 caps 08/15/24 09/17/24 Rx capsule,extended release sertraline 25 mg tablet 50 mg (2 x 25 mg) PO DAILY #90 tabs 08/15/24 09/17/24 Rx sotalol 80 mg tablet 80 mg PO BID 08/29/24 09/17/24 History zolpidem 10 mg tablet 5 - 10 mg (0.5 - 1 x 10 mg) PO HS 04/24/25 05/13/25 Rx PRN insomnia #30 tabs lorazepam 0.5 mg tablet 0.5 mg PO DAILY PRN anxiety #30 09/05/24 09/17/24 Rx tabs cephalexin 500 mg capsule 500 mg PO Q6HWA 7 days #28 caps 09/14/24 09/17/24 Rx sucralfate 100 mg/mL oral 1 g (10 mL) PO ACHS 30 days #300 mL 09/14/24 09/17/24 Rx suspension Past Med/Surg History Problem List (Updated 09/15/24 @ 00:08 by Shorty Leon) Cholelithiasis Postprandial epigastric pain Acute hypotension (Acute) AICD at end of battery life Gout Subclinical hypothyroidism Phantom limb Anxiety History of basal cell carcinoma Anticoagulant long-term use Hyperlipidemia LDL goal <70 GERD (gastroesophageal reflux disease) Paroxysmal ventricular tachycardia (Chronic 11/01/10) Medical History Acute cholecystitis Bronchitis Insomnia Sustained ventricular tachycardia Obstructive sleep apnea treated with continuous positive airway pressure (CPAP) Surgical History H/O umbilical hernia repair (08/22/24) Laparoscopic Cholecystectomy, Repair of Umbilical Hernia - Darryn Jeffries DO Hx laparoscopic cholecystectomy (08/22/24) Laparoscopic Cholecystectomy, Repair of Umbilical Hernia - Darryn Jeffries DO S/P quadruple vessel bypass 2009, in [place] S/P below knee amputation L leg 2012 Family History Denies family history of Ovarian cancer Prostate cancer Breast cancer Colorectal cancer Social History Smoking Status: Never smoker Tobacco Type: Cigarettes Age Started Using Tobacco: 16; Age Quit Using Tobacco: 63; packs per day: 1; Cigarettes Per Day: 20; Second Hand Exposure: No; Do You Dip or Chew Tobacco: No; Hx Alcohol Use: No Hx Substance Use: No Preferred Language: Uzbek Communication Ability: Effective Communication Ability Comment: hard of hearing Plant Security Guard Required: No Beliefs That Will Affect Care: None marital status: Current Living Situation: Spouse current occupational status: retired Feels Safe at Home: Yes caffeine: Yes Dental Care, Regularly: Yes Seatbelt Use: always Sunscreen Use: Yes Assistive Devices: None Review of Systems Review of Systems: as per HPI Physical Exam Physical Exam: Constitutional: no acute distress HEENT: NCAT, no conjunctival injection CV: RRR, extremities well-perfused, no LE edema Resp: Lungs clear to auscultation, no increased work of breathing GI: nondistended MSK: no gross deformities Skin: warm, dry, no rash appreciated Neuro: alert, oriented, no focal neurologic deficit appreciated Results & Data Results & Data Vital Signs (Past 12 Hours) Vital Signs Temp Pulse Pulse Resp BP BP Pulse Ox 09/08/24 22:12 62 16 109/71 94 09/08/24 20:26 95 09/08/24 20:26 64 17 105/67 96 09/08/24 20:13 77 09/08/24 20:05 36.7 C 84 18 110/70 94 O2 Del Method 09/08/24 22:12 Room Air 09/08/24 20:26 Room Air 09/08/24 20:26 Room Air 09/08/24 20:13 09/08/24 20:05 Room Air Supervising Physician Co-Signing Physician Notes I personally saw and examined the patient. I independently reviewed the labs, EKG, imaging, problem list, medication list, past medical history and family history. I verified all carrillo points and agree with resident physician Dr Jesse Trevino DO with the following exceptions and/or additions: 73 year old male presents to the ER with chest pain. Shortly after discharge from [facility] after ERCP. Intermittent and substernal. Became more constant today just prior to arrival severity 02/14. Recent ERCP for choledocholithiasis with improved LFTs. Gastritis noted on EGD at time of ERCP. O/E HS RRR, no murmurs, Chest CTAB, no reproducibility on palpation, Abdo SNT A/P Chest pain - Angina vs. GERD, troponin x2 negative, TTE, consult cardiology Resident Activity Tracking Resident Involvement: Resident Care Provided Care Provided: Adult Hospital Medicine (7) CAD (coronary artery disease), [place] coronary artery Associated angina: with stable angina [place] vs. transplanted heart: [place] heart Qualified Code(s): I25.118 - Atherosclerotic heart disease of [place] coronary artery with other forms of angina pectoris (9) Hypertension Hypertension type: primary hypertension Qualified Code(s): I10 - Essential (primary) hypertension (11) Atrial flutter Atrial flutter type: unspecified Qualified Code(s): I48.92 - Unspecified atrial flutter
[2024-09-08] MEDS: LORazepam 0.5 MG TAB PO STA (23:46)
[2024-09-09] MEDS: OPTIRAY 320 125ml IV ONE (00:40)
--- NOTE | 2024-09-09 00:51 | XRay Report ---
Exam(s): XR CXR 2 VIEWS EXAM: XR Chest, 2 Views CLINICAL HISTORY: Reason for exam: Chest pain, nonspecific. TECHNIQUE: Frontal and lateral views of the chest. COMPARISON: Chest radiograph on 08/19/2024 FINDINGS: Hardware: None. Lungs/pleura: Normal. No focal consolidation. No pleural effusion or pneumothorax. Heart/mediastinum: Left sided pacemaker/AICD. Median sternotomy and CABG changes. No cardiomegaly. Soft tissues: Unremarkable. Bones: No acute fracture. Degenerative changes of the spine. Upper abdomen: Normal. IMPRESSION: No acute disease identified. Electronically signed by: Estefanía Wang M.D. 09/09/24 00:50 AM
--- NOTE | 2024-09-09 01:11 | CT Scan Report ---
EXAM: CT angio chest dissec wo/w con CLINICAL HISTORY: chest pain 02/14 w/ rad to back;br /( hello add SCT TECHNIQUE: Contiguous axial images were obtained from the neck base through the upper abdomen with and without intravenous administration of iodinated contrast material. Angiographic images were processed, 3D MIP images were acquired for interpretation. If IV contrast material had not been administered, the likelihood of detecting abnormalities relevant to the patient's condition would have been substantially decreased. Coronal and sagittal 3-D MIPs were likewise performed and indicated to increase the sensitivity of detectin diffuse clinically relevant pathology. CT scan was performed according to ALARA (as low as reasonable achievable). COMPARISON: None. FINDINGS: Diffuse centrilobular emphysema noted in both lungs. Adequate contrast bolus without evidence of pulmonary embolism. The central airways are patent. The lungs are clear. No pleural effusion. The heart, aorta, and pulmonary arteries are of normal size and configuration. There are coronary artery and aortic atherosclerotic calcifications. No pericardial effusion is identified. The thyroid is unremarkable. No mediastinal, hilar, or axillary lymphadenopathy is noted. No suspicious lytic or sclerotic osseous lesions are identified. Bilateral hepatic lobe pneumobilia. Multiple hypodense cysts are noted involving both lobes of liver. IMPRESSION: 1. Diffuse centrilobular emphysema noted in both lungs. 2. No evidence of pulmonary embolism or pulmonary disease. 3. No obvious aortic dissection. 4. Cardiomegaly Electronically signed by Yoel Tsang 09-09-2024 01:11 AM
--- NOTE | 2024-09-09 01:32 | Emergency Department Note ---
History of Present Illness General Chief Complaint: Chest Pain Stated Complaint: CHEST PAIN Time Seen by Provider: 09/08/24 20:15 History of Present Illness Provider Complaint: chest pain Onset (ago): hour(s) 2 Duration: intermittent and improved Onset: during rest Pain Location: substernal Pain Radiation: RUE and LUE Maximum Pain Intensity: 10 Current Pain Intensity: 5 Quality: + heaviness Relieved By: + nothing Exacerbated By: + nothing Context: no recent illness, no recent surgery, no recent immobilization, no recent travel, no trauma/injury, no new medications or no history of DVT/PE Associated symptoms: + dyspnea; no nausea, no vomiting, no diaphoresis, no syncope, no palpitations, no fever or no cough Treatments prior to arrival: nitroglycerin (Patient reports he took 2 sublingual nitroglycerin at home but it did not help his pain) Patient reports that it feels similar to the last time he had a heart attack. Home Medications Medication Instructions Recorded Confirmed Type aspirin 81 mg tablet,delayed 81 mg PO DAILY #90 tabs 03/10/22 09/08/24 Rx release amoxicillin 500 mg capsule 2,000 mg PO DIRECTED PRN PRIOR 07/22/22 09/08/24 History TO DENTAL APPT. empagliflozin 10 mg tablet 10 mg PO DAILY #90 tabs 11/13/23 09/08/24 Rx (Jardiance) CPAP Machine #1 ea 02/23/24 09/08/24 Rx apixaban 5 mg tablet 5 mg PO BID #180 tabs 02/23/24 09/08/24 Rx atorvastatin 20 mg tablet 20 mg PO DAILY #90 tabs 02/23/24 09/08/24 Rx bumetanide 0.5 mg tablet 0.5 mg PO DAILY #90 tabs 02/23/24 09/08/24 Rx gabapentin 600 mg tablet 600 mg PO HS #90 tabs 02/23/24 09/08/24 Rx metoprolol succinate 25 mg 25 mg PO DAILY #90 tabs 02/23/24 09/08/24 Rx tablet,extended release 24 hr nitroglycerin 0.4 mg sublingual 0.4 mg sublingual DIRECTED PRN 04/15/24 09/08/24 Rx tablet Chest Pain #10 tabs pantoprazole 40 mg tablet,delayed 40 mg PO DAILY #90 tabs 06/25/24 09/08/24 Rx release sacubitril 24 mg-valsartan 26 mg 0.5 tab PO BID #180 tabs 07/11/24 09/08/24 Rx tablet potassium chloride 10 mEq 10 meq PO DAILY #90 caps 08/15/24 09/08/24 Rx capsule,extended release sertraline 25 mg tablet 50 mg (2 x 25 mg) PO DAILY #90 tabs 08/15/24 09/08/24 Rx sotalol 80 mg tablet 80 mg PO BID 08/29/24 09/08/24 History zolpidem 10 mg tablet 5 - 10 mg (0.5 - 1 x 10 mg) PO HS 08/29/24 09/08/24 Rx PRN insomnia #30 tabs lorazepam 0.5 mg tablet 0.5 mg PO DAILY PRN anxiety #30 09/05/24 09/08/24 Rx tabs Allergies Allergy/AdvReac Type Severity Reaction Status Date / Time heparin Allergy Severe CAUSES HIT Verified 09/05/24 10:46 silver AdvReac Intermediate TOPICAL - Verified 09/05/24 10:46 BURNING, PAIN Past Med/Surg History Problem List (Updated 09/09/24 @ 01:32 by Jesse Colorado MD) Chest pain (Acute) Cholelithiasis Postprandial epigastric pain Acute hypotension (Acute) Chest pain (Acute) AICD at end of battery life HFrEF (heart failure with reduced ejection fraction) Gout Subclinical hypothyroidism Phantom limb Anxiety CKD (chronic kidney disease) stage 3, GFR 30-59 ml/min Obstructive sleep apnea History of basal cell carcinoma Anticoagulant long-term use ICD (implantable cardioverter-defibrillator), biventricular, in situ Ischemic cardiomyopathy CAD (coronary artery disease), [place] coronary artery Chronic pain syndrome Hypertension Hyperlipidemia LDL goal <70 GERD (gastroesophageal reflux disease) Paroxysmal ventricular tachycardia (Chronic 11/01/10) Medical History Acute cholecystitis Bronchitis Insomnia Sustained ventricular tachycardia Obstructive sleep apnea treated with continuous positive airway pressure (CPAP) Surgical History H/O umbilical hernia repair (08/22/24) Laparoscopic Cholecystectomy, Repair of Umbilical Hernia - Darryn Jeffries DO Hx laparoscopic cholecystectomy (08/22/24) Laparoscopic Cholecystectomy, Repair of Umbilical Hernia - Darryn D. Jeffries, DO S/P quadruple vessel bypass 2009, in [place] S/P below knee amputation L leg 2013 Family History Denies family history of Ovarian cancer Prostate cancer Breast cancer Colorectal cancer Social History Smoking Status: Former smoker Tobacco Type: Cigarettes Age Started Using Tobacco: 16; Age Quit Using Tobacco: 63; packs per day: 1; Cigarettes Per Day: 20; Second Hand Exposure: No; Do You Dip or Chew Tobacco: No; Hx Alcohol Use: No Hx Substance Use: No Preferred Language: Danish Communication Ability: Effective Communication Ability Comment: hard of hearing Wage And Salary Specialist Required: No Beliefs That Will Affect Care: None marital status: Current Living Situation: Spouse current occupational status: retired Feels Safe at Home: Yes caffeine: Yes Dental Care, Regularly: Yes Seatbelt Use: always Sunscreen Use: Yes Assistive Devices: Cane Physical Exam Vital Signs Vital Signs - 24 hr 09/08/24 20:05 09/08/24 20:13 09/08/24 20:26 Temperature 36.7 C Temperature Source Oral Pulse Rate 84 77 Pulse Rate [Right Finger] 64 Pulse Rhythm Regular Pulse Rhythm [Right Finger] Regular Pulse Strength Normal Pulse Strength [Right Finger] Normal Respiratory Rate 18 17 Respiratory Effort / Characteristics Non-Labored Spontaneous Non-Labored Respiratory Depth Normal Normal Respiratory Pattern Regular Regular Blood Pressure 110/70 Blood Pressure [Right Arm] 105/67 Blood Pressure Mean 83 Blood Pressure Mean [Right Arm] 79 Blood Pressure Position Sitting Blood Pressure Position [Right Arm] Lying Pulse Oximetry 94 96 Oxygen Delivery Method Room Air Room Air Sepsis Recent Fever Within 48 Hours No Sepsis New/Unexplained Change in Mental Status N/A Sepsis Action Taken by Nursing No Action Required 09/08/24 20:26 09/08/24 22:12 09/08/24 23:33 Temperature Temperature Source Pulse Rate 64 Pulse Rate [Right Finger] 62 Pulse Rhythm Pulse Rhythm [Right Finger] Regular Pulse Strength Pulse Strength [Right Finger] Normal Respiratory Rate 16 19 Respiratory Effort / Characteristics Non-Labored Respiratory Depth Normal Respiratory Pattern Regular Blood Pressure 117/73 Blood Pressure [Right Arm] 109/71 Blood Pressure Mean 87 Blood Pressure Mean [Right Arm] 83 Blood Pressure Position Blood Pressure Position [Right Arm] Lying Pulse Oximetry 95 94 Oxygen Delivery Method Room Air Room Air Sepsis Recent Fever Within 48 Hours Sepsis New/Unexplained Change in Mental Status Sepsis Action Taken by Nursing 09/08/24 23:54 09/09/24 00:00 09/09/24 00:30 Temperature Temperature Source Pulse Rate 66 62 63 Pulse Rate [Right Finger] Pulse Rhythm Pulse Rhythm [Right Finger] Pulse Strength Pulse Strength [Right Finger] Respiratory Rate 16 17 Respiratory Effort / Characteristics Respiratory Depth Respiratory Pattern Blood Pressure 108/67 126/81 Blood Pressure [Right Arm] Blood Pressure Mean 80 96 Blood Pressure Mean [Right Arm] Blood Pressure Position Blood Pressure Position [Right Arm] Pulse Oximetry Oxygen Delivery Method Sepsis Recent Fever Within 48 Hours Sepsis New/Unexplained Change in Mental Status Sepsis Action Taken by Nursing Physical Exam GENERAL: oriented to person, place, and time. appears well-developed and well- nourished. HENT: Exam performed. - Head: Normocephalic and atraumatic. EYES: Conjunctivae and EOM are normal. Right eye exhibits no discharge. Left eye exhibits no discharge. No scleral icterus. NECK: Normal range of motion. Neck supple. No JVD present. CV: Normal rate, regular rhythm, normal heart sounds and intact distal pulses. There is no peripheral edema. Palpable radial pulses bue. PULM/CHEST: Effort normal and breath sounds normal. No respiratory distress. No stridor. no wheezes. no rales. ABD: The abdomen is soft. There is no tenderness. NEURO: Motor and sensation grossly intact. SKIN: Skin is warm and dry. He is not diaphoretic. PSYCH: normal mood and affect. Behavior is normal. Judgment and thought content normal. Course Course 2015: The patient was evaluated in room B4. A complete history and physical exam was performed Cardiac monitoring: An order was placed for continuous cardiac monitoring. The monitor shows a rate of 80 with paced rhythm interpreted by wv 2200: Vital signs stable. Labs and imaging are unremarkable. Patient will be admitted to the [facility] Hospitalist team. Administered Medications Discontinued Medications Aspirin (Aspirin Chew 324 Mg) 324 mg PO NOW STA Stop: 09/08/24 20:16 Last Admin: 09/08/24 20:30 Dose: 324 mg Documented By: DONA Ioversol (Optiray 320 125ml) 125 ml IV ONCE ONE Stop: 09/09/24 00:40 Last Admin: 09/09/24 00:40 Dose: 118 ml Documented By: CORAZON Lorazepam (Lorazepam 0.5 Mg Tab) 0.5 mg PO NOW STA Stop: 09/08/24 23:28 Last Admin: 09/08/24 23:46 Dose: 0.5 mg Documented By: SARAH Morphine Sulfate (Morphine Sulfate 2 Mg/Ml Carp) 2 mg IV NOW STA Stop: 09/08/24 20:45 Last Admin: 09/08/24 20:49 Dose: 2 mg Documented By: DONA Medical Decision Making Laboratory Data Attestation: I reviewed the patient's lab results. 09/08/24 20:16 09/08/24 20:16 Labs: Lab Results 09/08/24 09/08/24 09/08/24 Range/Units 20:16 21:53 22:49 WBC 6.25 (4.8-10.8) K/ul RBC 4.99 (4.70-6.10) M/uL Hgb 15.3 (14.0-18.0) g/dl POC Hgb 14.3 (14.0-18.0) g/dl Hct 45.4 (42.0-52.0) % POC Hct 42 (42-52) % MCV 91.0 (80.0-100.0) fL MCH 30.7 (25.0-34.0) pg MCHC 33.7 (32.0-36.0) g/dL RDW Std Deviation 41.7 (36.4-46.3) fL RDW Coeff of Faby 12.5 (11.5-14.5) % Plt Count 180 (130-400) K/uL MPV 11.6 (9.4-12.4) fL Immature Gran % (Auto) 0.3 % Neut % (Auto) 74.9 % Lymph % (Auto) 14.6 % [place] % (Auto) 7.7 % Eos % (Auto) 1.9 % Baso % (Auto) 0.6 % Neut # (Auto) 4.68 (1.40-6.50) K/uL Lymph # (Auto) 0.91 L (1.20-3.40) K/uL [place] # (Auto) 0.48 (0.11-0.59) K/uL Eos # (Auto) 0.12 (0.00-0.50) K/uL Baso # (Auto) 0.04 (0.00-0.20) K/uL Immature Gran # (Auto) 0.02 (0.01-0.20) K/uL PT 11.6 (9.0-12.0) Seconds INR 1.1 (0.9-1.1) APTT 29 (21-31) Seconds PTT Ratio 1.1 POC Sodium 138 (135-144) mmol/L Sodium 138 (136-145) mmol/L POC Potassium 3.8 (3.3-5.0) mmol/L Potassium 4.1 (3.5-5.1) mmol/L POC Chloride 100 L (101-112) mmol/L Chloride 101 (98-107) mmol/L Carbon Dioxide 31 (21-32) mmol/L POC Total CO2 25 (24-31) mmol/L Anion Gap 6 (3-11) POC Anion Gap 19.0 (16-25) mmol/L POC BUN 14 (7-18) mg/dl BUN 14 (6-23) mg/dl Creatinine 1.34 (0.6-1.4) mg/dl POC Creatinine 1.2 (0.6-1.3) mg/dl Est Cr Clr Drug Dosing 47.6 ml/min eGFR 55.24 BUN/Creatinine Ratio 10.4 (10-20) Glucose 93 (70-99(Fasting)) mg/dl POC Glucose (other) 88 (70-99) mg/dl Calcium 9.2 (8.6-10.3) mg/dl POC Ioniz Calcium K[place] 1.18 (1.12-1.32) mmol/l Troponin I High Sens 6.6 7.3 (0-20) pg/ml Lipase 18 (11-82) U/L Imaging Data Chest x-ray: Attestation: I personally reviewed and interpreted this imaging study as follows: My impression: Chest x-ray negative. Airway clear. No pneumothorax. No consolidation. No cardiomegaly or cephalization.. No free air under the diaphragm. No fractures of the skeletal structures. Radiologist's impression: Exam(s): XR CXR 2 VIEWS EXAM: XR Chest, 2 Views CLINICAL HISTORY: Reason for exam: Chest pain, nonspecific. TECHNIQUE: Frontal and lateral views of the chest. COMPARISON: Chest radiograph on 08/19/2024 FINDINGS: Hardware: None. Lungs/pleura: Normal. No focal consolidation. No pleural effusion or pneumothorax. Heart/mediastinum: Left sided pacemaker/AICD. Median sternotomy and CABG changes. No cardiomegaly. Soft tissues: Unremarkable. Bones: No acute fracture. Degenerative changes of the spine. Upper abdomen: Normal. IMPRESSION: No acute disease identified. Electronically signed by: Estefanía Wang M.D. 09/09/24 00:50 AM Dictated: 09/09/2449 Transcribed: 09/09/2449 ECG Data Attestation: I personally reviewed and interpreted this ECG as follows: Additional Comments: Paced rhythm with a rate of 83. QRS 130 QTc 526. No ectopy MDM Narrative 2015: The patient was evaluated in room B4. A complete history and physical exam was performed Cardiac monitoring: An order was placed for continuous cardiac monitoring. The monitor shows a rate of 80 with paced rhythm interpreted by me 2200: Vital signs stable. Labs and imaging are unremarkable. Patient will be admitted to the [facility] hospitalist team. Impression & Plan Chest pain Discharge Plan Visit Data Chief Complaint: Chest Pain Stated Complaint: CHEST PAIN ED Provider: Jesse Colorado Discharge Problem: Chest pain Patient Disposition: Being Evaluated by Hospitalist Condition: Fair Forms Stand Alone Forms: My [facility] Prescriptions Prescriptions: No Action sacubitril-valsartan 24-26 mg tablet 0.5 tab PO BID Qty: 180 3RF Hold Instructions: Resume on 08/29/24. zolpidem 10 mg tablet 5 - 10 mg PO HS PRN (Reason: insomnia) Qty: 30 0RF Jardiance 10 mg tablet 10 mg PO DAILY Qty: 90 3RF Hold Instructions: Resume on 08/28/24. aspirin 81 mg tablet,delayed release (DR/EC) 81 mg PO DAILY Qty: 90 3RF Hold Instructions: RESUME ON 09/01 (DME) CPAP Machine Misc See Rx Instructions .Route Qty: 1 0RF Rx Instructions: CAP 5cmH20 with mask fitting (mask of pt choice) humidification heated tubing and chin strap. Lifetime supplies. bumetanide 0.5 mg tablet 0.5 mg PO DAILY Qty: 90 3RF Hold Instructions: Resume on 04/23/25. apixaban 5 mg tablet 5 mg PO BID Qty: 180 3RF Hold Instructions: RESUME ON 09/01 atorvastatin 20 mg tablet 20 mg PO DAILY Qty: 90 3RF gabapentin 600 mg tablet 600 mg PO HS Qty: 90 3RF metoprolol succinate 25 mg tablet extended release 24 hr 25 mg PO DAILY Qty: 90 3RF pantoprazole 40 mg tablet,delayed release (DR/EC) 40 mg PO DAILY Qty: 90 3RF lorazepam 0.5 mg tablet 0.5 mg PO DAILY PRN (Reason: anxiety) Qty: 30 1RF sotalol 80 mg tablet 80 mg PO BID Patient Comments: CONFIRMED W/ PT'S DAUGHTER THAT HE TAKES 80MG BID. 08/29/24 nitroglycerin 0.4 mg tablet, sublingual 0.4 mg sublingual DIRECTED PRN (Reason: Chest Pain) Qty: 10 0RF sertraline 25 mg tablet 50 mg PO DAILY Qty: 90 0RF potassium chloride 10 mEq capsule, extended release 10 meq PO DAILY Qty: 90 3RF amoxicillin 500 mg capsule 2,000 mg PO DIRECTED PRN (Reason: PRIOR TO DENTAL APPT.) Referrals Referrals: Linn Forbes MD [Primary Care Provider] - Discharge Problem: Chest pain Qualifiers: Chest pain type: unspecified Qualified Code(s): R07.9 - Chest pain, unspecified
[2024-09-09] MEDS ORDERED: MELATONIN 3 MG TAB PO PRN (02:05)
[2024-09-09] MEDS ORDERED: POLYETHYLENE (MIRALAX) 17 GM PACK PO PRN (02:05)
[2024-09-09] MEDS ORDERED: NITROGLYCERIN SL 0.4 MG/TAB TAB SL PRN (02:05)
[2024-09-09] MEDS: ZOLPIDEM TARTRATE 5 MG TAB PO PRN (02:23)
[2024-09-09] MEDS: APIXABAN 5 MG TABLET PO SCH ×2 (04:46→16:30)
[2024-09-09] MEDS: EMPAGLIFLOZIN 10 MG TAB PO SCH (07:58)
[2024-09-09] MEDS: ASPIRIN 81 MG ECTAB PO SCH (08:00)
[2024-09-09] MEDS: SOTALOL HCL 80 MG TAB PO SCH ×2 (08:00→20:30)
[2024-09-09] MEDS: ATORVASTATIN 20 MG TAB PO SCH (08:00)
[2024-09-09] MEDS: PANTOprazole 40 MG TAB PO SCH ×2 (08:00→20:16)
[2024-09-09] MEDS: SERTRALINE HCL 50 MG TABLET PO SCH (08:01)
[2024-09-09] MEDS: BUMETANIDE 1 MG TAB PO SCH (08:01)
[2024-09-09] MEDS: VALSARTAN/SACUBITRIL 26/24MG TAB PO SCH (08:01)
[2024-09-09] MEDS: POTASSIUM CHLORIDE 10 MEQ TABCR PO SCH (08:08)
--- NOTE | 2024-09-09 08:57 | Electrocardiogram Report ---
Test Reason : Blood Pressure : */* mmHG Vent. Rate : 83 BPM Atrial Rate : 83 BPM P-R Int : * ms QRS Dur : 130 ms QT Int : 448 ms P-R-T Axes : * 198 -3 degrees QTcB Int : 526 ms AV dual-paced rhythm Biventricular pacemaker detected Abnormal ECG When compared with ECG of 19-Aug-2024 12:07, Vent. rate has increased by 7 bpm Confirmed by Eliza Foley ([id number]) on 09/09/2024 8:57:26 AM Referred By: REFERRED SELF Confirmed By: Eliza Foley
[2024-09-09] MEDS ORDERED: Nursing to Pharmacy Communication SCH (09:00)
[2024-09-09] MEDS: METOPROLOL SUCC 25MG EXT REL TAB PO SCH (09:55)
[2024-09-09] MEDS: ACETAMINOPHEN 325 MG TAB PO PRN (09:57)
[2024-09-09] MEDS: ONDANSETRON INJ 2 MG/ML 2 ML VIAL IV PRN (09:58)
--- NOTE | 2024-09-09 10:49 | Hospitalist Progress Note ---
Date of Service September 09, 2024 Assessment & Plan (1) Chest pain: (2) HFrEF (heart failure with reduced ejection fraction): (3) CKD (chronic kidney disease) stage 3, GFR 30-59 ml/min: (4) Obstructive sleep apnea: (5) ICD (implantable cardioverter-defibrillator), biventricular, in situ: (6) Ischemic cardiomyopathy: (7) CAD (coronary artery disease), [place] coronary artery: (8) Chronic pain syndrome: (9) Hypertension: (10) Hyperlipidemia LDL goal <70: (11) Atrial flutter: Plan 73 year old male with PMHx that includes CAD, paroxysmal A-fib/flutter, HFrEF, CKD, RHIANNA, HTN, and HLD presenting with chest pain: #Chest Pain: Unclear etiology, differential includes unstable angina vs GERD vs costochondritis vs other Negative trop x2, repeat in AM EKG without overt ischemic changes, though this may be obscured d/t paced rhythm Despite fairly low suspicion, CTA chest obtained, which was negative for dissection or PE TTE ordered, pending Cardiology consult appreciated Tylenol, morphine PRN for pain control AM labs #HFrEF: Continue Entresto, Jardiance, Metoprolol, Bumex #A-fib: Continue Sotalol and Eliquis #CAD: Continue Aspirin and statin #Chronic pain: Continue Gabapentin #Anxiety, insomnia: Continue Zoloft, Ativan #RHIANNA: Continue CPAP qHS Dispo: Admit PCU FEN/GI: HH diet VTE ppx: Eliquis DNR/DNI Admission and Anticipated Discharge Date Admission Date: September 09, 2024 Subjective Patient complains of epigastric pain after 24 hours high-sensitivity troponin has been negative appreciate cardiology input have consulted GI service Physical Exam Physical Exam: Constitutional: no acute distress HEENT: NCAT, no conjunctival injection CV: RRR, extremities well-perfused, no LE edema scar from coronary artery bypass graft surgery and he biventricular pacemaker in the chest Resp: Lungs clear to auscultation, no increased work of breathing GI: nondistended status post gallbladder surgery recently MSK: Patient has a left lower extremity amputation this was after a clot in his left leg while he was getting recovery from coronary artery bypass graft surgery in 2009 Skin: warm, dry, no rash appreciated Neuro: alert, oriented, no focal neurologic deficit appreciated Results & Data Results & Data Vital Signs (Past 12 Hours) Vital Signs Temp Pulse Pulse Resp BP BP Pulse Ox 09/09/24 07:51 61 09/09/24 07:16 36.5 C 74 17 99/63 L 94 09/09/24 02:51 83 09/09/24 02:09 36.3 C L 82 18 106/69 96 09/09/24 01:42 60 19 102/66 91 09/09/24 00:30 63 17 126/81 09/09/24 00:00 62 09/08/24 23:54 66 16 108/67 09/08/24 23:33 64 19 117/73 O2 Del Method 09/09/24 07:51 09/09/24 07:16 Room Air 09/09/24 02:51 09/09/24 02:09 Room Air 09/09/24 01:42 Room Air 09/09/24 00:30 09/09/24 00:00 09/08/24 23:54 09/08/24 23:33 PG Care Time/CCT Total # of Minutes Spent Total Time Spent with Patient: Total time spent is greater than 50% in coordination of care (as documented) at patient's floor/unit and/or counseling patient: Coding Level of Care Code 36485 SUB INP/OBS CARE 3/50MIN Diagnoses Chest pain R07.9 HFrEF (heart failure with reduced ejection fraction) I50.20 CKD (chronic kidney disease) stage 3, GFR 30-59 ml/min N18.30 Obstructive sleep apnea G47.33 ICD (implantable cardioverter-defibrillator), biventricular, in situ Z95.810 Ischemic cardiomyopathy I25.5 Coronary artery disease of [place] artery of [place] heart with stable angina pectoris I25.118 Associated angina: with stable angina [place] vs. transplanted heart: [place] heart Chronic pain syndrome G89.4 Primary hypertension I10 Hypertension type: primary hypertension Hyperlipidemia LDL goal <70 E78.5 Atrial flutter, unspecified type I48.92 Atrial flutter type: unspecified (7) CAD (coronary artery disease), [place] coronary artery Associated angina: with stable angina [place] vs. transplanted heart: [place] heart Qualified Code(s): I25.118 - Atherosclerotic heart disease of [place] coronary artery with other forms of angina pectoris (9) Hypertension Hypertension type: primary hypertension Qualified Code(s): I10 - Essential (primary) hypertension (11) Atrial flutter Atrial flutter type: unspecified Qualified Code(s): I48.92 - Unspecified atrial flutter
--- NOTE | 2024-09-09 11:59 | Cardiology Consultation ---
Date of Consultation September 09, 2024 Assessment & Plan (1) Chest pain: (2) HFrEF (heart failure with reduced ejection fraction): (3) Ischemic cardiomyopathy: (4) Paroxysmal ventricular tachycardia: (5) CAD (coronary artery disease), soboba coronary artery: (6) S/P quadruple vessel bypass: (7) ICD (implantable cardioverter-defibrillator), biventricular, in situ: Plan ASSESSMENT/PLAN: 1. Chest pain: Approaching 24 hours of constant chest pain with negative high-sensitivity troponin x 3. Chest pain is not consistent with ischemic heart disease, although he has a history of multivessel CAD. Given recent GI issues in the past few weeks with cholecystectomy, choledocholithiasis, and documented gastritis on GLH evaluation, suggest further evaluation from a GI standpoint from the primary hospitalist service as a possible etiology for his discomfort. Myocardial perfusion study done this year did not suggest ischemia. No urgent indication for cardiac catheterization. 2. CAD s/p CABG x 4 and PCI: Symptoms do not seem consistent with angina. As above. Continue aspirin 81 mg daily if no contraindication as he has prior history of PCI. Continue beta-shaun. Continue statin therapy. Consider high intensity statin therapy. 3. Ischemic cardiomyopathy: Continue GDMT. ICD in place. 4. Chronic heart failure with reduced EF: He appears euvolemic. Continue SGLT2 inhibitor, low-dose Bumex (home dose), ARNI. Had been on spironolactone but it was discontinued during August 2024 hospitalization when he presented with acute kidney injury. This could be revisited in the future if able. Low-sodium diet, less than 2000 mg daily. Daily weights. Medical therapy can be titrated in the outpatient setting, if tolerated. Medical therapy may be optimized given issues with hypotension in the past with more aggressive titration. 5. Ventricular tachycardia s/p multiple ablations: Very brief nonsustained VT of 4 beats on 09/08/2024. Continue beta-shaun. 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 As per EP. 6. Atrial fibrillation: Sotalol was increased in the outpatient setting to 120 mg twice daily on 04/15/2024 by electrophysiology. AV paced here. Continue anticoagulation for stroke risk reduction. Monitor CBC and renal function. 7. ICD: Biventricular. As per primary executive director. Generator change on 08/06/2024. 8. Disposition: Cardiology will sign off at this time. Continue to follow-up in the outpatient setting with his primary executive director. Plan of care communicated with Dr. Joaquin of the primary hospitalist service. Thank you for allowing me to participate in the care of your patient. Please call for any other questions or concerns. Sincerely, Silvestre Atkins M.D. History of Present Illness Reason for Consultation: chest pain Requesting Physician: Jesse Trevino Attending Physician: Destiny Joaquin MD History of Present Illness Mr. 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 His primary brick catcher is Dr. Sanders. He has had the following studies/procedures (includes only some of his procedures in the past): 1. CABG x 11 June 2009 at [facility]: CLEARY to LAD; SVG to OM1; SVG to OM2; SVG to PDA 2. Cardiac cath approximately 2015 [place]: Patient has reported 1 patent bypass graft while the other 3 were occluded. 3. Nuclear stress 05/15/2024 [facility]: Large severe infarct involving the lateral, inferolateral, inferior bravo and apex. Infarcted territories appear nonviable. No significant ischemia suggested. Severely dilated LV with severely reduced systolic function. 4. Echo 08/21/2024: Limited study. EF 20-25%. He was hospitalized on 09/09/2024 with chest discomfort. He describes the chest discomfort as a substernal burning that also radiates into the epigastric area. This is intermittently been occurring since discharge from [facility] on 08/28/2024 where he underwent biliary sphincterotomy and balloon extraction of a gallstone. A common bile duct stent was placed. This follows a cholecystectomy that was performed at [facility] on 08/22/2024. His current episode of chest discomfort has been persistent since approximately 3 PM on 09/08/2024. There is no associated shortness of breath. He has had intermittent nausea but no vomiting. Tums have been used in the past with improvement but they did not offer improvement yesterday. He admits that he is not eating as symptoms worsen with food. He states that his chest discomfort is still 5 out of 10 although yesterday it was 10 out of 10 on the pain scale. He had a myocardial perfusion study done earlier this year. He denies syncope, near syncope, palpitations, edema, orthopnea, recent ICD shock, fevers. No rigors. He denies melena, hematochezia, hematuria, or other bleeding. He states that he takes sotalol 120 mg twice daily rather than 80 mg which was listed on his admission note. 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 He was on Multaq without long-term suppression of VT. He more recently has been using sotalol and has undergone multiple VT ablations. Review of systems: As above. Review of systems otherwise negative/unremarkable. Family history: Father with CAD. Social history: Quit smoking in 2009. Occasional alcohol. and lives with his . 1 child. Unaccompanied in his hospital room. Allergies Allergy/AdvReac Type Severity Reaction Status Date / Time heparin Allergy Severe CAUSES HIT Verified 09/05/24 10:46 silver AdvReac Intermediate TOPICAL - Verified 09/05/24 10:46 BURNING, PAIN Home Medications Medication Instructions Recorded Confirmed Type aspirin 81 mg tablet,delayed 81 mg PO DAILY #90 tabs 03/10/22 09/08/24 Rx release amoxicillin 500 mg capsule 2,000 mg PO DIRECTED PRN PRIOR 07/22/22 09/08/24 History TO DENTAL APPT. empagliflozin 10 mg tablet 10 mg PO DAILY #90 tabs 11/13/23 09/08/24 Rx ([facility]) CPAP Machine #1 ea 02/23/24 09/08/24 Rx apixaban 5 mg tablet 5 mg PO BID #180 tabs 02/23/24 09/08/24 Rx atorvastatin 20 mg tablet 20 mg PO DAILY #90 tabs 02/23/24 09/08/24 Rx bumetanide 0.5 mg tablet 0.5 mg PO DAILY #90 tabs 02/23/24 09/08/24 Rx gabapentin 600 mg tablet 600 mg PO HS #90 tabs 02/23/24 09/08/24 Rx metoprolol succinate 25 mg 25 mg PO DAILY #90 tabs 02/23/24 09/08/24 Rx tablet,extended release 24 hr nitroglycerin 0.4 mg sublingual 0.4 mg sublingual DIRECTED PRN 04/15/24 09/08/24 Rx tablet Chest Pain #10 tabs pantoprazole 40 mg tablet,delayed 40 mg PO DAILY #90 tabs 06/25/24 09/08/24 Rx release sacubitril 24 mg-valsartan 26 mg 0.5 tab PO BID #180 tabs 07/11/24 09/08/24 Rx tablet potassium chloride 10 mEq 10 meq PO DAILY #90 caps 08/15/24 09/08/24 Rx capsule,extended release sertraline 25 mg tablet 50 mg (2 x 25 mg) PO DAILY #90 tabs 08/15/24 09/08/24 Rx sotalol 80 mg tablet 80 mg PO BID 08/29/24 09/08/24 History zolpidem 10 mg tablet 5 - 10 mg (0.5 - 1 x 10 mg) PO HS 08/29/24 09/08/24 Rx PRN insomnia #30 tabs lorazepam 0.5 mg tablet 0.5 mg PO DAILY PRN anxiety #30 09/05/24 09/08/24 Rx tabs Problem List (Updated 09/09/24 @ 01:32 by Jesse [place] MD) Chest pain (Acute) Cholelithiasis Postprandial epigastric pain Acute hypotension (Acute) Chest pain (Acute) AICD at end of battery life HFrEF (heart failure with reduced ejection fraction) Gout Subclinical hypothyroidism Phantom limb Anxiety CKD (chronic kidney disease) stage 3, GFR 30-59 ml/min Obstructive sleep apnea History of basal cell carcinoma Anticoagulant long-term use ICD (implantable cardioverter-defibrillator), biventricular, in situ Ischemic cardiomyopathy CAD (coronary artery disease), soboba coronary artery Chronic pain syndrome Hypertension Hyperlipidemia LDL goal <70 GERD (gastroesophageal reflux disease) Paroxysmal ventricular tachycardia (Chronic 11/01/10) Patient History Medical History Acute cholecystitis Bronchitis Insomnia Sustained ventricular tachycardia Obstructive sleep apnea treated with continuous positive airway pressure (CPAP) Surgical History H/O umbilical hernia repair (08/22/24) Laparoscopic Cholecystectomy, Repair of Umbilical Hernia - Darryn Jeffries DO Hx laparoscopic cholecystectomy (08/22/24) Laparoscopic Cholecystectomy, Repair of Umbilical Hernia - Darryn Jeffries DO S/P quadruple vessel bypass 2009, in [place] S/P below knee amputation L leg 2013 Family History Denies family history of Ovarian cancer Prostate cancer Breast cancer Colorectal cancer Social History Smoking Status: Never smoker Tobacco Type: Cigarettes Age Started Using Tobacco: 16; Age Quit Using Tobacco: 63; packs per day: 1; Cigarettes Per Day: 20; Second Hand Exposure: No; Do You Dip or Chew Tobacco: No; Hx Alcohol Use: No Hx Substance Use: No Preferred Language: Ghanaian Communication Ability: Effective Communication Ability Comment: hard of hearing Offset Platemaker Required: No Beliefs That Will Affect Care: None marital status: Current Living Situation: Spouse current occupational status: retired Feels Safe at Home: Yes Safety Concerns: Feels Safe At This Time caffeine: Yes Dental Care, Regularly: Yes Seatbelt Use: always Sunscreen Use: Yes Assistive Devices: Prosthesis Physical Exam Physical Exam: Gen.: No acute distress. Alert and oriented. HEENT: Anicteric sclera. Neck: No JVD. Normal carotid upstrokes bilaterally. Cardiac: Regular. Normal S1-S2. No murmurs, rubs, or gallops. Pulmonary: Clear to auscultation bilaterally without wheezes, rales, or rhonchi. Abdomen: Soft, nondistended, with normoactive bowel sounds. No bruits noted. Epigastric tenderness. Extremities: 2+ radial pulses bilaterally. Left BKA. No edema. No cyanosis. Psychiatric: Affect appears appropriate. Chest: Nontender to palpation. Results & Data Vital Signs (Past 12 Hours) Vital Signs Temp Pulse Pulse Resp BP BP Pulse Ox 09/09/24 11:32 36.6 C 59 L 16 101/63 93 09/09/24 07:51 61 09/09/24 07:16 36.5 C 74 17 99/63 L 94 09/09/24 02:51 83 09/09/24 02:09 36.3 C L 82 18 106/69 96 09/09/24 01:42 60 19 102/66 91 09/09/24 00:30 63 17 126/81 09/09/24 00:00 62 O2 Del Method 09/09/24 11:32 Room Air 09/09/24 07:51 09/09/24 07:16 Room Air 09/09/24 02:51 09/09/24 02:09 Room Air 09/09/24 01:42 Room Air 09/09/24 00:30 09/09/24 00:00 Laboratory Results Laboratory Results - last 24 hr 09/08/24 09/08/24 09/08/24 20:16 21:53 22:49 WBC 6.25 RBC 4.99 Hgb 15.3 POC Hgb 14.3 Hct 45.4 POC Hct 42 MCV 91.0 MCH 30.7 MCHC 33.7 RDW Std Deviation 41.7 RDW Coeff of Faby 12.5 Plt Count 180 MPV 11.6 Immature Gran % (Auto) 0.3 Neut % (Auto) 74.9 Lymph % (Auto) 14.6 [place] % (Auto) 7.7 Eos % (Auto) 1.9 Baso % (Auto) 0.6 Neut # (Auto) 4.68 Lymph # (Auto) 0.91 L [place] # (Auto) 0.48 Eos # (Auto) 0.12 Baso # (Auto) 0.04 Immature Gran # (Auto) 0.02 PT 11.6 INR 1.1 APTT 29 PTT Ratio 1.1 POC Sodium 138 Sodium 138 POC Potassium 3.8 Potassium 4.1 POC Chloride 100 L Chloride 101 Carbon Dioxide 31 POC Total CO2 25 Anion Gap 6 POC Anion Gap 19.0 POC BUN 14 BUN 14 Creatinine 1.34 POC Creatinine 1.2 Est Cr Clr Drug Dosing 47.6 eGFR 55.24 BUN/Creatinine Ratio 10.4 Glucose 93 POC Glucose (other) 88 Calcium 9.2 POC Ioniz Calcium Kierra 1.18 Troponin I High Sens 6.6 7.3 Lipase 18 09/09/24 05:49 WBC RBC Hgb POC Hgb Hct POC Hct MCV MCH MCHC RDW Std Deviation RDW Coeff of Faby Plt Count MPV Immature Gran % (Auto) Neut % (Auto) Lymph % (Auto) [place] % (Auto) Eos % (Auto) Baso % (Auto) Neut # (Auto) Lymph # (Auto) [place] # (Auto) Eos # (Auto) Baso # (Auto) Immature Gran # (Auto) PT INR APTT PTT Ratio POC Sodium Sodium POC Potassium Potassium POC Chloride Chloride Carbon Dioxide POC Total CO2 Anion Gap POC Anion Gap POC BUN BUN Creatinine POC Creatinine Est Cr Clr Drug Dosing eGFR BUN/Creatinine Ratio Glucose POC Glucose (other) Calcium POC Ioniz Calcium Kierra Troponin I High Sens 9.9 Lipase Diagnostic Findings Labs reviewed and notable for negative high-sensitivity troponin x 3. Normal potassium, stable renal function, normal blood counts. Echo reports reviewed as noted above in HPI. Stress test report reviewed as noted above in HPI. History and physical report reviewed. Prior cardiology notes reviewed. ECG personally reviewed 09/08/2024 at 2010: AV paced 83 bpm. Telemetry personally reviewed: AV paced with 1 episode of nonsustained V. tach 4 beats in duration (09/08/2024 at 2236). CTA chest 09/09/2024: Diffuse centrilobular emphysema bilaterally per radiology. No PE. No aortic dissection. Medications Administered Current Inpatient Medications Acetaminophen (Acetaminophen 325 Mg Tab) 650 mg PO Q6H PRN PRN Reason: Pain or Fever Stop: 10/09/24 02:04 Last Admin: 09/09/24 09:57 Dose: 650 mg Al Hydrox/Mg Hydrox/Simethicone (Aluminum/Magnesium Susp 30 Ml Udc) 15 ml PO Q4H PRN PRN Reason: Dyspepsia Stop: 10/09/24 02:04 Apixaban (Apixaban 5 Mg Tablet) 5 mg PO Q12H [facility] Stop: 10/09/24 16:44 Aspirin (Aspirin 81 Mg Ectab) 81 mg PO DAILY [facility] Stop: 10/09/24 08:59 Last Admin: 09/09/24 08:00 Dose: 81 mg Atorvastatin Calcium (Atorvastatin 20 Mg Tab) 20 mg PO DAILY [facility] Stop: 10/09/24 08:59 Last Admin: 09/09/24 08:00 Dose: 20 mg Bumetanide (Bumetanide 1 Mg Tab) 0.5 mg PO DAILY [facility] Stop: 10/09/24 08:59 Last Admin: 09/09/24 08:01 Dose: 0.5 mg Empagliflozin (Empagliflozin 10 Mg Tab) 10 mg PO DAILY [facility] Stop: 10/09/24 08:59 Last Admin: 09/09/24 07:58 Dose: 10 mg Gabapentin (Gabapentin 600 Mg Tab) 600 mg PO HS [place] Stop: 10/09/24 20:59 Lorazepam (Lorazepam 0.5 Mg Tab) 0.5 mg PO DAILY PRN PRN Reason: anxiety Stop: 10/09/24 02:04 Last Admin: 09/09/24 12:06 Dose: 0.5 mg Melatonin (Melatonin 3 Mg Tab) 3 mg PO HS PRN PRN Reason: Sleep Stop: 10/09/24 02:04 Metoprolol Succinate (Metoprolol Succ 25mg Ext Rel Tab) 25 mg PO DAILY SKYLAR Stop: 10/09/24 08:59 Last Admin: 09/09/24 09:55 Dose: Not Given Morphine Sulfate (Morphine Sulfate 2 Mg/Ml Carp) 2 mg IV Q3H PRN PRN Reason: Chest Pain Stop: 09/23/24 02:04 Nitroglycerin (Nitroglycerin Sl 0.4 Mg/Tab Tab) 0.4 mg SL Q5M PRN PRN Reason: Chest Pain Stop: 10/09/24 02:04 Ondansetron HCl (Ondansetron Inj 2 Mg/Ml 2 Ml Vial) 4 mg IV Q6H PRN PRN Reason: Nausea Stop: 10/09/24 02:04 Last Admin: 09/09/24 09:58 Dose: 4 mg Pantoprazole Sodium (Pantoprazole 40 Mg Tab) 40 mg PO DAILY [place] Stop: 10/09/24 08:59 Last Admin: 09/09/24 08:00 Dose: 40 mg Polyethylene Glycol (Polyethylene (Miralax) 17 Gm Pack) 17 gm PO DAILY PRN PRN Reason: Constipation Stop: 10/09/24 02:04 Potassium Chloride (Potassium Chloride 10 Meq Tabcr) 10 meq PO DAILY [place] Stop: 10/09/24 08:59 Last Admin: 09/09/24 08:08 Dose: 10 meq Sacubitril/Valsartan (Valsartan/Sacubitril 26/24mg Tab) 0.5 tab PO BID [place] Stop: 10/09/24 08:59 Last Admin: 09/09/24 08:01 Dose: 0.5 tab Sertraline HCl (Sertraline Hcl 50 Mg Tablet) 50 mg PO DAILY [place] Stop: 10/09/24 08:59 Last Admin: 09/09/24 08:01 Dose: 50 mg Sotalol HCl (Sotalol Hcl 80 Mg Tab) 80 mg PO BID [place] Stop: 10/09/24 08:59 Last Admin: 09/09/24 08:00 Dose: 80 mg Zolpidem Tartrate (Zolpidem Tartrate 5 Mg Tab) 5 mg PO HS PRN PRN Reason: insomnia Stop: 10/09/24 02:07 Last Admin: 09/09/24 02:23 Dose: 5 mg PG Care Time/CCT Total # of Minutes Spent Total Time Spent with Patient: Total time spent is greater than 50% in coordination of care (as documented) at patient's floor/unit and/or counseling patient: Coding Level of Care Code 22917 INT INP/OBS CARE 3/75MIN Diagnoses Chest pain R07.9 Chest pain type: unspecified HFrEF (heart failure with reduced ejection fraction) I50.20 Ischemic cardiomyopathy I25.5 Paroxysmal ventricular tachycardia I47.2 Coronary artery disease of sob[place] artery of soboba heart with stable angina pectoris I25.118 [place] vs. transplanted heart: soboba heart Associated angina: with stable angina S/P quadruple vessel bypass Z95.1 ICD (implantable cardioverter-defibrillator), biventricular, in situ Z95.810 (1) Chest pain Chest pain type: unspecified Qualified Code(s): R07.9 - Chest pain, unspecified (5) CAD (coronary artery disease), soboba coronary artery [place] vs. transplanted heart: soboba heart Associated angina: with stable angina Qualified Code(s): I25.118 - Atherosclerotic heart disease of soboba coronary artery with other forms of angina pectoris
[2024-09-09] MEDS: LORazepam 0.5 MG TAB PO PRN (12:06)
--- NOTE | 2024-09-09 18:54 | XCELERA ---
[id number]
[2024-09-09] MEDS: ALUMINUM/MAGNESIUM SUSP 30 ML UDC PO PRN (19:14)
[2024-09-09] MEDS: GABAPENTIN 600 MG TAB PO SCH (20:18)
[2024-09-10 06:32] LABS: Hematocrit (blood only) 42.1 % (42.0-52.0); Hemoglobin 14.2 g/dl (14.0-18.0); Mean Corpuscular Hemoglobin 30.5 pg (25.0-34.0); Mean Corpuscular Hgb Conc 33.7 g/dL (32.0-36.0); Mean Corpuscular Volume 90.5 fL (80.0-100.0); Mean Platelet Volume 11.1 fL (9.4-12.4); Platelet Count 132 K/uL (130-400); RDW Coefficient of Variation 12.7 % (11.5-14.5); RDW Standard Deviation 41.5 fL (36.4-46.3); Red Blood Count 4.65 M/uL (4.70-6.10); White Blood Count 4.85 K/ul (4.8-10.8)
[2024-09-10 06:56] LABS: Albumin Globulin Ratio 1.7 (0.9-2); BUN Creatinine Ratio 14.5 (10-20); Bilirubin,Total 1.7 mg/dl (0.2-1.0); Calcium 8.7 mg/dl (8.6-10.3); Creatinine Clr Calc Pharmacy 51.5 ml/min; Globulin 2.1 gm/dl (2.5-4.0); Potassium 3.8 mmol/L (3.5-5.1); Total Protein 5.7 gm/dl (6.0-8.3)
--- NOTE | 2024-09-10 09:11 | Gastrointestinal Consultation ---
Date of Consultation September 10, 2024 Assessment & Plan (1) Postprandial epigastric pain: 73 year old male with history of CAD s/p CABG, paroxysmal A-fib/flutter, HFrEF, s/p ICD CKD, RHIANNA, HTN, and HLD presenting with chest pain, GI was asked to evaluate for epigastric pain. He is s/p CCY for gallstones and ERCP for retained biliary stones in August 2024 but notes unchanged post-prandial abdominal pain associated with GERD and constipation since starting a new anxiety medication in July. 1. History of ERCP - LFTs improved from prior - Follow up with [facility] for management of biliary stent 2. Post-prandial upper abd pain w/ GERD, constipation - Maintain NPO status for EGD evaluation - Continue Pantoprazole twice daily - Add Pepcid 20 mg HS - Establish a bowel regimen w/ Miralax - Miralax 1 capful daily - May titrate dose based off of response up to three capfuls daily We appreciate assistance in the management of any serological abnormality and corrections to include: hemoglobin >7, INR <2, platelets >50,000, potassium levels >3.5 but <5.3, and sodium levels within 5 points of the reference range prior to endoscopic evaluation. Thank you for allowing us to participate in the care of this patient. Please call with any acute changes, questions or concerns. Please see addendum below with additional recommendation from my supervising physician. I spent a total of 60 minutes on the date of service in review of patient's record, and previously obtained information in person and appropriate medical visit, discussion and education of plan, with patient and/or caregiver, placing orders for tests/referral/procedures as medically necessary and documentation of pertinent clinical information in patient's medical records for their visit today. Supervising Physician Co-Signing Physician Notes I personally saw and examined the patient. I have reviewed the chart and agree with the documentation provided by the [facility] including discussion about the assessment, treatment and plan. Briefly, 73 year old male with history of CAD s/p CABG, paroxysmal A-fib/flutter, HFrEF, s/p ICD CKD, RHIANNA, HTN, and HLD presenting with chest pain, GI was asked to evaluate for epigastric pain. He is s/p CCY for gallstones and ERCP for retained biliary stones in August 2024 but notes unchanged post-prandial abdominal pain associated with GERD and constipation since starting a new anxiety medication in July. Labs unrevealing. Plan for egd to r/o pud, gastritis or esophagitis. Pt will need a screening colon outpt. In the meantime, ppi bid and treat the constipation with miralax. History of Present Illness Reason for Consultation: epigastric pain Requesting Physician: Destiny Joaquin MD Attending Physician: Destiny Joaquin MD History of Present Illness 73 year old male with history of CAD s/p CABG, paroxysmal A-fib/flutter, HFrEF, s/p ICD CKD, RHIANNA, HTN, and HLD presenting with chest pain, GI was asked to evaluate for epigastric pain. Pt was seen and evaluated, chart reviewed. Notes his symptoms started around July, shortly after starting a new medication for anxiety. Reports at onset, the epigastric pain was episodic. However, as the days passed the discomfort became more severe. Discomfort is worse post- prandially. Associated w/ some reflux/regurgitation. No nausea/vomiting. There is an associated change in bowel habits w/ constipation passing stool every 5/6 days. No black or bloody stools. No fever, chills, CP. He notes he is s/p CCY for gallstones in August and EGD/ERCP for retained biliary stones mid August. He is on ASA, Eliquis. Denies NSAIDs, ETOH or tobacco. ERCP 2024: CBD stone s/p sphincterotomy, CBD stent placed EGD 2024: normal esophagus, z-line regular, gastritis, normal examined duodenum EGD 2019: - Z-line regular, 42 cm from the incisors. - Normal esophagus. - Normal stomach. - Normal first portion of the duodenum, second portion of the duodenum, third portion of the duodenum and examined duodenum. - No specimens collected. Colon 2019: - Diverticulosis in the sigmoid colon. - No specimens collected. Allergies Allergy/AdvReac Type Severity Reaction Status Date / Time heparin Allergy Severe CAUSES HIT Verified 09/05/24 10:46 silver AdvReac Intermediate TOPICAL - Verified 09/05/24 10:46 BURNING, PAIN Home Medications Medication Instructions Recorded Confirmed Type aspirin 81 mg tablet,delayed 81 mg PO DAILY #90 tabs 03/10/22 09/08/24 Rx release amoxicillin 500 mg capsule 2,000 mg PO DIRECTED PRN PRIOR 07/22/22 09/08/24 History TO DENTAL APPT. empagliflozin 10 mg tablet 10 mg PO DAILY #90 tabs 11/13/23 09/08/24 Rx (Jardiance) CPAP Machine #1 ea 02/23/24 09/08/24 Rx apixaban 5 mg tablet 5 mg PO BID #180 tabs 02/23/24 09/08/24 Rx atorvastatin 20 mg tablet 20 mg PO DAILY #90 tabs 02/23/24 09/08/24 Rx bumetanide 0.5 mg tablet 0.5 mg PO DAILY #90 tabs 02/23/24 09/08/24 Rx gabapentin 600 mg tablet 600 mg PO HS #90 tabs 02/23/24 09/08/24 Rx metoprolol succinate 25 mg 25 mg PO DAILY #90 tabs 02/23/24 09/08/24 Rx tablet,extended release 24 hr nitroglycerin 0.4 mg sublingual 0.4 mg sublingual DIRECTED PRN 04/15/24 09/08/24 Rx tablet Chest Pain #10 tabs pantoprazole 40 mg tablet,delayed 40 mg PO DAILY #90 tabs 06/25/24 09/08/24 Rx release sacubitril 24 mg-valsartan 26 mg 0.5 tab PO BID #180 tabs 07/11/24 09/08/24 Rx tablet potassium chloride 10 mEq 10 meq PO DAILY #90 caps 08/15/24 09/08/24 Rx capsule,extended release sertraline 25 mg tablet 50 mg (2 x 25 mg) PO DAILY #90 tabs 08/15/24 09/08/24 Rx sotalol 80 mg tablet 80 mg PO BID 08/29/24 09/08/24 History zolpidem 10 mg tablet 5 - 10 mg (0.5 - 1 x 10 mg) PO HS 08/29/24 09/08/24 Rx PRN insomnia #30 tabs lorazepam 0.5 mg tablet 0.5 mg PO DAILY PRN anxiety #30 09/05/24 09/08/24 Rx tabs Patient History Medical History Acute cholecystitis Bronchitis Insomnia Sustained ventricular tachycardia Obstructive sleep apnea treated with continuous positive airway pressure (CPAP) Surgical History H/O umbilical hernia repair (08/22/24) Laparoscopic Cholecystectomy, Repair of Umbilical Hernia - Darryn Jeffries, DO Hx laparoscopic cholecystectomy (08/22/24) Laparoscopic Cholecystectomy, Repair of Umbilical Hernia - Darryn Jeffries DO S/P quadruple vessel bypass 2009, in [place] S/P below knee amputation L leg 2013 Family History Denies family history of Ovarian cancer Prostate cancer Breast cancer Colorectal cancer Social History Smoking Status: Never smoker Tobacco Type: Cigarettes Age Started Using Tobacco: 16; Age Quit Using Tobacco: 63; packs per day: 1; Cigarettes Per Day: 20; Second Hand Exposure: No; Do You Dip or Chew Tobacco: No; Hx Alcohol Use: No Hx Substance Use: No Preferred Language: Maori Communication Ability: Effective Communication Ability Comment: hard of hearing Gang Saw Operator Required: No Beliefs That Will Affect Care: None marital status: Current Living Situation: Spouse current occupational status: retired Feels Safe at Home: Yes caffeine: Yes Dental Care, Regularly: Yes Seatbelt Use: always Sunscreen Use: Yes Assistive Devices: None Review of Systems Review of Systems: All other findings negative except as noted in HPI. Physical Exam Constitutional: well developed and well nourished Respiratory: normal respiratory effort Cardiovascular: Rate/Rhythm: regular rate Gastrointestinal (Abdomen): normal bowel sounds, soft, nontender, no hepatosplenomegaly Skin: no rashes, warm and dry Results & Data Vital Signs (Past 12 Hours) Vital Signs Temp Pulse Pulse Resp BP Pulse Ox O2 Del Method 09/10/24 07:40 98.2 F 75 18 112/73 95 Room Air 09/10/24 07:00 62 09/10/24 03:35 98.1 F 70 16 95/60 L 98 Room Air 09/10/24 02:11 22 09/10/24 00:15 60 16 97 09/09/24 22:52 98.1 F 61 19 94/57 L 94 Room Air 09/09/24 22:05 68 Laboratory Results 09/10/24 Range/Units 05:57 WBC 4.85 (4.8-10.8) K/ul RBC 4.65 L (4.70-6.10) M/uL Hgb 14.2 (14.0-18.0) g/dl Hct 42.1 (42.0-52.0) % MCV 90.5 (80.0-100.0) fL MCH 30.5 (25.0-34.0) pg MCHC 33.7 (32.0-36.0) g/dL RDW Std Deviation 41.5 (36.4-46.3) fL RDW Coeff of Faby 12.7 (11.5-14.5) % Plt Count 132 (130-400) K/uL MPV 11.1 (9.4-12.4) fL Sodium 139 (136-145) mmol/L Potassium 3.8 (3.5-5.1) mmol/L Chloride 102 (98-107) mmol/L Carbon Dioxide 32 (21-32) mmol/L Anion Gap 5 (3-11) BUN 18 (6-23) mg/dl Creatinine 1.24 (0.6-1.4) mg/dl Est Cr Clr Drug Dosing 51.5 ml/min eGFR 60.63 BUN/Creatinine Ratio 14.5 (10-20) Glucose 83 (70-99(Fasting)) mg/dl Calcium 8.7 (8.6-10.3) mg/dl Total Bilirubin 1.7 H (0.2-1.0) mg/dl AST 6 L (13-39) U/L ALT 5 L (7-52) U/L Alkaline Phosphatase 77 (34-104) U/L Total Protein 5.7 L (6.0-8.3) gm/dl Albumin 3.6 (3.4-5.0) gm/dl Globulin 2.1 L (2.5-4.0) gm/dl Albumin/Globulin Ratio 1.7 (0.9-2) PG Care Time/CCT Total # of Minutes Spent Total Time Spent with Patient: Total time spent is greater than 50% in coordination of care (as documented) at patient's floor/unit and/or counseling patient: Coding Level of Care Code 36120 INT INP/OBS CARE 2/55MIN Diagnoses Postprandial epigastric pain R10.13
--- NOTE | 2024-09-10 12:29 | Anesthesiology Consultation ---
Date of Service September 10, 2024 Assessment & Plan Chart Review Chart Review: Acceptable Risk for Surgery Consults Requested none ASA ASA3 Proposed Anesthesia Anesthesia Type: MAC Risk / Benefits Reviewed With: PT / POA / Parent / Guardian, Accepts Plan and Informed Consent Obtained History Surgery Operation Date: 09/10/24 16:45 Proposed Procedures p Esophagogastroduodenoscopy Geeta - Jose Connor MD Height/Weight Height: 5 ft 9 in Weight: 80.5 kg Allergies Allergy/AdvReac Type Severity Reaction Status Date / Time heparin Allergy Severe CAUSES HIT Verified 09/05/24 10:46 silver AdvReac Intermediate TOPICAL - Verified 09/05/24 10:46 BURNING, PAIN Medications Home Medications Medication Instructions Recorded Confirmed Last Taken aspirin 81 mg tablet,delayed 81 mg PO DAILY #90 tabs 03/10/22 09/08/24 08/06/24 release amoxicillin 500 mg capsule 2,000 mg PO DIRECTED PRN PRIOR 07/22/22 09/08/24 Unknown TO DENTAL APPT. empagliflozin 10 mg tablet 10 mg PO DAILY #90 tabs 11/13/23 09/08/24 08/06/24 (Jardiance) CPAP Machine #1 ea 02/23/24 09/08/24 Unknown apixaban 5 mg tablet 5 mg PO BID #180 tabs 02/23/24 09/08/24 08/04/24 atorvastatin 20 mg tablet 20 mg PO DAILY #90 tabs 02/23/24 09/08/24 08/06/24 bumetanide 0.5 mg tablet 0.5 mg PO DAILY #90 tabs 02/23/24 09/08/24 Unknown gabapentin 600 mg tablet 600 mg PO HS #90 tabs 02/23/24 09/08/24 Unknown metoprolol succinate 25 mg 25 mg PO DAILY #90 tabs 02/23/24 09/08/24 08/06/24 tablet,extended release 24 hr nitroglycerin 0.4 mg sublingual 0.4 mg sublingual DIRECTED PRN 04/15/24 09/08/24 Unknown tablet Chest Pain #10 tabs pantoprazole 40 mg tablet,delayed 40 mg PO DAILY #90 tabs 06/25/24 09/08/24 Unknown release sacubitril 24 mg-valsartan 26 mg 0.5 tab PO BID #180 tabs 07/11/24 09/08/24 Unknown tablet potassium chloride 10 mEq 10 meq PO DAILY #90 caps 08/15/24 09/08/24 Unknown capsule,extended release sertraline 25 mg tablet 50 mg (2 x 25 mg) PO DAILY #90 tabs 08/15/24 09/08/24 Unknown sotalol 80 mg tablet 80 mg PO BID 08/29/24 09/08/24 Unknown zolpidem 10 mg tablet 5 - 10 mg (0.5 - 1 x 10 mg) PO HS 08/29/24 09/08/24 Unknown PRN insomnia #30 tabs lorazepam 0.5 mg tablet 0.5 mg PO DAILY PRN anxiety #30 09/05/24 09/08/24 Unknown tabs Active Medications Generic Name Dose Route Start Last Admin Trade Name Freq PRN Reason Stop Dose Admin Acetaminophen 650 mg 09/09/24 02:05 09/09/24 09:57 Acetaminophen 325 Mg Tab PO 10/09/24 02:04 650 mg Q6H PRN Administration Pain or Fever Al Hydrox/Mg Hydrox/Simethicone 15 ml 09/09/24 02:05 09/09/24 19:14 Aluminum/Magnesium Susp 30 Ml Udc PO 10/09/24 02:04 15 ml Q4H PRN Administration Dyspepsia Apixaban 5 mg 09/09/24 16:45 09/09/24 16:30 Apixaban 5 Mg Tablet PO 10/09/24 16:44 5 mg Q12H SKYLAR Administration Aspirin 81 mg 09/09/24 09:00 09/09/24 08:00 Aspirin 81 Mg Ectab PO 10/09/24 08:59 81 mg DAILY SKYLAR Administration Atorvastatin Calcium 20 mg 09/09/24 09:00 09/10/24 08:06 Atorvastatin 20 Mg Tab PO 10/09/24 08:59 20 mg DAILY SKYLAR Administration Bumetanide 0.5 mg 09/09/24 09:00 09/10/24 08:06 Bumetanide 1 Mg Tab PO 10/09/24 08:59 0.5 mg DAILY SKYLAR Administration Empagliflozin 10 mg 09/09/24 09:00 09/10/24 08:06 Empagliflozin 10 Mg Tab PO 10/09/24 08:59 10 mg DAILY SKYLAR Administration Gabapentin 600 mg 09/09/24 21:00 09/09/24 20:18 Gabapentin 600 Mg Tab PO 10/09/24 20:59 600 mg HS SKYLAR Administration Lorazepam 0.5 mg 09/09/24 02:05 09/09/24 12:06 Lorazepam 0.5 Mg Tab PO 10/09/24 02:04 0.5 mg DAILY PRN Administration anxiety Metoprolol Succinate 25 mg 09/09/24 09:00 09/10/24 08:06 Metoprolol Succ 25mg Ext Rel Tab PO 10/09/24 08:59 25 mg DAILY SKYLAR Administration Ondansetron HCl 4 mg 09/09/24 02:05 09/09/24 09:58 Ondansetron Inj 2 Mg/Ml 2 Ml Vial IV 10/09/24 02:04 4 mg Q6H PRN Administration Nausea Pantoprazole Sodium 40 mg 09/09/24 21:00 09/10/24 08:06 Pantoprazole 40 Mg Tab PO 10/09/24 20:59 40 mg BID SKYLAR Administration Potassium Chloride 10 meq 09/09/24 09:00 09/10/24 08:08 Potassium Chloride 10 Meq Tabcr PO 10/09/24 08:59 10 meq DAILY SKYLAR Administration Sacubitril/Valsartan 0.5 tab 09/09/24 09:00 09/10/24 08:05 Valsartan/Sacubitril 26/24mg Tab PO 10/09/24 08:59 0.5 tab BID SKYLAR Administration Sertraline HCl 50 mg 09/09/24 09:00 09/10/24 08:06 Sertraline Hcl 50 Mg Tablet PO 10/09/24 08:59 50 mg DAILY SKYLAR Administration Sotalol HCl 120 mg 09/09/24 21:00 09/10/24 08:05 Sotalol Hcl 80 Mg Tab PO 10/09/24 20:59 120 mg BID SKYLAR Administration Zolpidem Tartrate 5 mg 09/09/24 02:08 09/09/24 22:52 Zolpidem Tartrate 5 Mg Tab PO 10/09/24 02:07 5 mg HS PRN Administration insomnia NPO Date Last Intake of Fluids: 09/09/24 Time Last Intake of Fluids: 19:30 Date Last Intake of Solids: 09/09/24 Time Last Intake of Solids: 19:30 Past Medical History Medical History Acute cholecystitis Bronchitis Insomnia Sustained ventricular tachycardia Obstructive sleep apnea treated with continuous positive airway pressure (CPAP) Exercise / Class Metabolic Activity II 4-5 Yardwork/Stairs/Walk up hill Past Family History Family History Denies family history of Ovarian cancer Prostate cancer Breast cancer Colorectal cancer Past Surgical History Surgical History H/O umbilical hernia repair (08/22/24) Laparoscopic Cholecystectomy, Repair of Umbilical Hernia - Darryn Jeffries DO Hx laparoscopic cholecystectomy (08/22/24) Laparoscopic Cholecystectomy, Repair of Umbilical Hernia - Darryn Jeffries DO S/P quadruple vessel bypass 2009, in [place] S/P below knee amputation L leg 2013 Past Anesthesia History No Hx of Anesthesia Complications History of PONV No Hx of PONV Social History Smoking Status: Never smoker tobacco type: cigarettes Smoking cigarettes per day: 20 Do You Dip or Chew Tobacco: No Hx Alcohol Use: No alcohol intake frequency: 0-2 drinks per day Hx Substance Use: No substance use type: does not use Physical Exam Vital Signs Last Vital Signs Temp 36.1 C L 09/10/24 12:18 Pulse 63 09/10/24 12:18 Resp 16 09/10/24 12:18 BP 97/59 L 09/10/24 12:18 Pulse Ox 95 09/10/24 12:18 O2 Del Method Room Air 09/10/24 12:18 ENMT Mouth: + chipped teeth Thyromental Distance: > or= 3.5 Finger Breadths Mallampati Class: II Mouth / Teeth: 2 1. Chipped Neck normal visual inspection Respiratory normal respiratory effort Auscultation: lungs clear to auscultation bilaterally Cardiovascular Rate/Rhythm: regular rate and regular rhythm pacer, AICD in left chest Chest (Breasts) Chest: + pacemaker Neurologic moves all extremities Psychiatric Orientation: alert and oriented x 3 Testing Laboratory Results 09/10/24 05:57 09/10/24 05:57 PT 11.6 Seconds (9.0-12.0) 09/08/24 20:16 INR 1.1 (0.9-1.1) 09/08/24 20:16 APTT 29 Seconds (21-31) 09/08/24 20:16
--- NOTE | 2024-09-10 13:19 | GI REPORT ---
[facility] Patient: NICK GARSIA : 1950 Sex at : Male Age: 73 Years Procedure: Upper GI endoscopy Date: 09/10/2024 Attending Physician: Jose Connor MD Referring MD: Destiny Joaquin MD Indications: - Epigastric abdominal pain Medications: - Monitored Anesthesia Care Complications: - No immediate complications. Estimated Blood Loss: - Estimated blood loss: None. - Estimated blood loss was minimal. Procedure: - Prior to the procedure, a History and Physical was performed, and patient medications and allergies were reviewed. The patient's tolerance of previous anesthesia was also reviewed. The risks and benefits of the procedure and the sedation options and risks were discussed with the patient. All questions were answered, and informed consent was obtained. Prior Anticoagulants: The patient has taken Eliquis (apixaban), last dose was 2 days prior to procedure. ASA Grade Assessment: III - A patient with severe systemic disease. After reviewing the risks and benefits, the patient was deemed in satisfactory condition to undergo the procedure. - The EGD scope was introduced through the mouth and advanced to the third part of the duodenum. - The upper GI endoscopy was accomplished without difficulty. - The patient tolerated the procedure well. Findings: - The examined esophagus was normal. - Patchy moderate inflammation characterized by erythema and erosions was found in the gastric antrum and in the gastric body. Biopsies were taken with a cold forceps for Helicobacter pylori testing. - One non-bleeding superficial gastric ulcer with no stigmata of bleeding was found in the gastric antrum. The lesion was 3 mm in largest dimension. - The examined duodenum was normal. Impression: - Normal esophagus. - Acute gastritis, characterized by erythema and erosions. Biopsied. - Non-bleeding gastric ulcer with no stigmata of bleeding. - Normal examined duodenum. Recommendation: - Discharge patient to home (ambulatory). - Resume previous diet. - Continue present medications. - Await pathology results. - Resume Eliquis (apixaban) at prior dose today. - Return to primary care physician as previously scheduled. - Patient has a contact number available for emergencies. The signs and symptoms of potential delayed complications were discussed with the patient. Return to normal activities tomorrow. Written discharge instructions were provided to the patient. - Use Protonix (pantoprazole) 40 mg PO BID for 1 week. - then once daily for 3 months - MiraLAX daily to help with BM. As this is also a portion of his pain. Outpatient follow-up and a colonoscopy outpatient. His stent is in place and functioning fine and will need to be removed in 2 to 3 months by the physician who performed the ERCP Procedure Code(s): - 49024, Esophagogastroduodenoscopy, flexible, transoral; with biopsy, single or multiple Diagnosis Code(s): - R10.13, Epigastric pain - K29.00, Acute gastritis without bleeding - K25.9, Gastric ulcer, unspecified as acute or chronic, without hemorrhage or perforation CPT(R) - 2023 copyright [employer]. All Rights Reserved. The CPT codes, CCI edits and ICD codes generated are intended as suggestions and were generated based on input data. These codes are preliminary and upon physician coder review may be revised to meet current compliance and payer requirements. The provider is responsible for the final determination of appropriate codes, and modifiers. Jose Connor MD This document has been electronically signed. Note Initiated:09/10/2024 Note Completed:09/10/2024 1:18 PM \\[id number]
--- NOTE | 2024-09-10 13:41 | Anesthesiology Progress Note ---
Date of Service September 10, 2024 Anesthesia Post Procedure Vital Signs Vital Signs: Temp Pulse Pulse Resp BP BP Pulse Ox 09/10/24 13:32 62 20 90/54 L 94 09/10/24 13:17 60 20 94/56 L 93 09/10/24 13:02 61 20 95/57 L 98 09/10/24 12:18 36.1 C L 63 16 97/59 L 95 09/10/24 11:00 36.6 C 60 16 92/57 L 91 09/10/24 07:40 36.8 C 75 18 112/73 95 09/10/24 07:00 62 09/10/24 03:35 36.7 C 70 16 95/60 L 98 09/10/24 02:11 22 09/10/24 00:15 60 16 97 09/09/24 22:52 36.7 C 61 19 94/57 L 94 09/09/24 22:05 68 09/09/24 20:24 89/57 L 09/09/24 19:26 36.8 C 70 18 92/55 L 95 09/09/24 16:03 65 09/09/24 15:42 36.9 C 69 18 104/66 95 O2 Del Method 09/10/24 13:32 Room Air 09/10/24 13:17 Room Air 09/10/24 13:02 Room Air 09/10/24 12:18 Room Air 09/10/24 11:00 Room Air 09/10/24 07:40 Room Air 09/10/24 07:00 09/10/24 03:35 Room Air 09/10/24 02:11 09/10/24 00:15 09/09/24 22:52 Room Air 09/09/24 22:05 09/09/24 20:24 09/09/24 19:26 Room Air 09/09/24 16:03 09/09/24 15:42 Room Air Pain Intensity Chest: Pain Intensity: 8 Head: Pain Intensity: 5 Transfer of Care Handoff Completed per policy Notes Mental Status: alert / awake / arousable Patient Amnestic to Procedure: Yes Nausea / Vomiting: adequately controlled Pain: adequately controlled Airway Patency, RR, SpO2: stable & adequate BP & HR: stable & adequate Hydration State: stable & adequate Anesthetic Complications: no major complications apparent and Pt Satisfied with anesthetic care
[2024-09-10] MEDS: KETAMINE HCL 10MG/ML SYR ONE (13:59)
[2024-09-10] MEDS: LIDOCAINE 2% 2 ML VIAL/AMP(20MG/ML) INFIL ONE ×2 (14:00)
[2024-09-10] MEDS: PHENYLEPHRINE 100MCG/ML 5ML SYR ONE (14:00)
[2024-09-10] MEDS: PROPOFOL IV EMULSION 10 MG/ML 20 ML VIAL IV ONE (14:00)
[2024-09-10] MEDS: SUCRALFATE 1 GM/10 ML UDC PO SCH (17:01)
[2024-09-10] MEDS: POLYETHYLENE (MIRALAX) 17 GM PACK PO PRN (17:04)
[2024-09-10] MEDS: MoRPHine SULFATE 2 MG/ML CARP IV PRN (17:42)
--- NOTE | 2024-09-10 18:01 | Hospitalist Progress Note ---
Date of Service September 10, 2024 Assessment & Plan (1) Chest pain: Plan: Noncardiac in nature looks like patient has epigastric pain due to gastritis (2) HFrEF (heart failure with reduced ejection fraction): (3) CKD (chronic kidney disease) stage 3, GFR 30-59 ml/min: (4) Obstructive sleep apnea: (5) ICD (implantable cardioverter-defibrillator), biventricular, in situ: (6) Ischemic cardiomyopathy: (7) CAD (coronary artery disease), [place] coronary artery: (8) Chronic pain syndrome: (9) Hypertension: (10) Hyperlipidemia LDL goal <70: (11) Atrial flutter: Plan 73 year old male with PMHx that includes CAD, paroxysmal A-fib/flutter, HFrEF, CKD, RHIANNA, HTN, and HLD presenting with chest pain: #Chest Pain: Unclear etiology, differential includes unstable angina vs GERD vs costochondritis vs other # Epigastric pain secondary to gastritis Patient is also complaining of constipation Ordered MiraLAX, Protonix, Carafate, and tramadol #HFrEF: Continue Entresto, Jardiance, Metoprolol, Bumex #A-fib: Continue Sotalol and Eliquis #CAD: Continue Aspirin and statin #Chronic pain: Continue Gabapentin #Anxiety, insomnia: Continue Zoloft, Ativan #RHIANNA: Continue CPAP qHS Dispo: Admit PCU FEN/GI: HH diet VTE ppx: Eliquis DNR/DNI Admission and Anticipated Discharge Date Admission Date: September 09, 2024 Subjective Status post EGD today patient has gastritis appreciate GI input Physical Exam Physical Exam: Constitutional: no acute distress HEENT: NCAT, no conjunctival injection CV: RRR, extremities well-perfused, no LE edema scar from coronary artery bypass graft surgery and he biventricular pacemaker in the chest Resp: Lungs clear to auscultation, no increased work of breathing GI: nondistended status post gallbladder surgery recently MSK: Patient has a left lower extremity amputation this was after a clot in his left leg while he was getting recovery from coronary artery bypass graft surgery in 2009 Skin: warm, dry, no rash appreciated Neuro: alert, oriented, no focal neurologic deficit appreciated Results & Data Results & Data Vital Signs (Past 12 Hours) Vital Signs Temp Pulse Pulse Resp BP Pulse Ox O2 Del Method 05/06/25 13:57 36.7 C 62 16 86/54 L 95 Room Air 09/10/24 13:32 62 20 90/54 L 94 Room Air 09/10/24 13:17 60 20 94/56 L 93 Room Air 09/10/24 13:02 61 20 95/57 L 98 Room Air 09/10/24 12:18 36.1 C L 63 16 97/59 L 95 Room Air 09/10/24 11:00 36.6 C 60 16 92/57 L 91 Room Air 09/10/24 07:40 36.8 C 75 18 112/73 95 Room Air 09/10/24 07:00 62 PG Care Time/CCT Total # of Minutes Spent Total Time Spent with Patient: Total time spent is greater than 50% in coordination of care (as documented) at patient's floor/unit and/or counseling patient: Coding Level of Care Code 94288 SUB INP/OBS CARE 3/50MIN Diagnoses Chest pain R07.9 HFrEF (heart failure with reduced ejection fraction) I50.20 CKD (chronic kidney disease) stage 3, GFR 30-59 ml/min N18.30 Obstructive sleep apnea G47.33 ICD (implantable cardioverter-defibrillator), biventricular, in situ Z95.810 Ischemic cardiomyopathy I25.5 Coronary artery disease of [place] artery of [place] heart with stable angina pectoris I25.118 [place] vs. transplanted heart: [place] heart Associated angina: with stable angina Chronic pain syndrome G89.4 Primary hypertension I10 Hypertension type: primary hypertension Hyperlipidemia LDL goal <70 E78.5 Atrial flutter, unspecified type I48.92 Atrial flutter type: unspecified Time Spent (min) 50 (7) CAD (coronary artery disease), [place] coronary artery [place] vs. transplanted heart: [place] heart Associated angina: with stable angina Qualified Code(s): I25.118 - Atherosclerotic heart disease of [place] coronary artery with other forms of angina pectoris (9) Hypertension Hypertension type: primary hypertension Qualified Code(s): I10 - Essential (primary) hypertension (11) Atrial flutter Atrial flutter type: unspecified Qualified Code(s): I48.92 - Unspecified atri al flutter
[2024-09-10] MEDS: traMADol HCL 50 MG TABLET PO PRN (20:43)
[2024-09-11] MEDS ORDERED: DEXTROSE IV ONE (14:00)
[2024-09-11] MEDS ORDERED: [UNRECOGNIZED DRUG - OTHER] IV ONE (14:00)
[2024-09-11] MEDS: ceFAZolin 2000MG 2,000 MG/15 ML SYR IV SCH (14:32)
[2024-09-11] MEDS ORDERED: [UNRECOGNIZED DRUG - OTHER] IV SCH (18:00)
[2024-09-11] MEDS ORDERED: DEXTROSE IV SCH (18:00)
--- NOTE | 2024-09-11 19:47 | Hospitalist Progress Note ---
Date of Service September 11, 2024 Assessment & Plan (1) Chest pain: Plan: Noncardiac in nature looks like patient has epigastric pain due to gastritis (2) HFrEF (heart failure with reduced ejection fraction): (3) CKD (chronic kidney disease) stage 3, GFR 30-59 ml/min: (4) Obstructive sleep apnea: (5) ICD (implantable cardioverter-defibrillator), biventricular, in situ: (6) Ischemic cardiomyopathy: (7) CAD (coronary artery disease), [place] coronary artery: (8) Chronic pain syndrome: (9) Hypertension: (10) Hyperlipidemia LDL goal <70: (11) Atrial flutter: Plan 73 year old male with PMHx that includes CAD, paroxysmal A-fib/flutter, HFrEF, CKD, RHIANNA, HTN, and HLD presenting with chest pain: #Chest Pain: Unclear etiology, differential includes unstable angina vs GERD vs costochondritis vs other - resolved # Epigastric pain secondary to gastritis Patient is also complaining of constipation Ordered MiraLAX, Protonix, Carafate, and tramadol - significant control #HFrEF: Continue Entresto, Jardiance, Metoprolol, Bumex #A-fib: Continue Sotalol and Eliquis #CAD: Continue Aspirin and statin #Chronic pain: Continue Gabapentin #Anxiety, insomnia: Continue Zoloft, Ativan #RHIANNA: Continue CPAP qHS # new skin lesion with redness and induarion around the umblicus -started with IV ancet -wound consult Dispo: Admit PCU FEN/GI: HH diet VTE ppx: Eliquis DNR/DNI Admission and Anticipated Discharge Date Admission Date: September 09, 2024 Subjective reported significant relief with carafate , has new induration around the umblial area with impetigious secretions Physical Exam Physical Exam: onstitutional: no acute distress HEENT: NCAT, no conjunctival injection CV: RRR, extremities well-perfused, no LE edema scar from coronary artery bypass graft surgery and he biventricular pacemaker in the chest Resp: Lungs clear to auscultation, no increased work of breathing GI: nondistended status post gallbladder surgery recently, erythema , and induarion around the belly MSK: Patient has a left lower extremity amputation this was after a clot in his left leg while he was getting recovery from coronary artery bypass graft surgery in 2009 Skin: warm, dry, no rash appreciated Neuro: alert, oriented, no focal neurologic deficit appreciated Results & Data Results & Data Vital Signs (Past 12 Hours) Vital Signs Temp Pulse Pulse Resp BP Pulse Ox O2 Del Method 09/11/24 16:13 36.6 C 73 18 107/74 94 Room Air 09/11/24 14:53 60 09/11/24 12:08 36.5 C 72 18 105/69 95 Room Air 09/11/24 10:33 60 09/11/24 09:10 92/54 L 09/11/24 07:55 36.4 C L 61 18 96/60 L 94 Room Air PG Care Time/CCT Total # of Minutes Spent Total Time Spent with Patient: Total time spent is greater than 50% in coordination of care (as documented) at patient's floor/unit and/or counseling patient: Coding Level of Care Code 52383 SUB INP/OBS CARE 3/50MIN Diagnoses Chest pain R07.9 HFrEF (heart failure with reduced ejection fraction) I50.20 CKD (chronic kidney disease) stage 3, GFR 30-59 ml/min N18.30 Obstructive sleep apnea G47.33 ICD (implantable cardioverter-defibrillator), biventricular, in situ Z95.810 Ischemic cardiomyopathy I25.5 Coronary artery disease of [place] artery of [place] heart with stable angina pectoris I25.118 [place] vs. transplanted heart: [place] heart Associated angina: with stable angina Chronic pain syndrome G89.4 Primary hypertension I10 Hypertension type: primary hypertension Hyperlipidemia LDL goal <70 E78.5 Atrial flutter, unspecified type I48.92 Atrial flutter type: unspecified (7) CAD (coronary artery disease), [place] coronary artery [place] vs. transplanted heart: [place] heart Associated angina: with stable angina Qualified Code(s): I25.118 - Atherosclerotic heart disease of [place] coronary artery with other forms of angina pectoris (9) Hypertension Hypertension type: primary hypertension Qualified Code(s): I10 - Essential (primary) hypertension (11) Atrial flutter Atrial flutter type: unspecified Qualified Code(s): I48.92 - Unspecified atrial flutter
[2024-09-12 07:32] LABS: BUN Creatinine Ratio 19.7 (10-20); C Reactive Protein 0.98 mg/dl (0-0.5); Calcium 8.6 mg/dl (8.6-10.3); Creatinine Clr Calc Pharmacy 50.3 ml/min; Potassium 4.7 mmol/L (3.5-5.1)
--- NOTE | 2024-09-12 12:45 | Surgery Consultation ---
Date of Consultation September 12, 2024 Assessment & Plan (1) H/O umbilical hernia repair: This is a 73yM with a PMH of cardiomyopathy with ICD, CKD, HTN, who is s/p lap cholecystectomy and umbilical hernia repair with Dr. Jeffries on 08/22/24 admitted on the night of 09/08 with chest pains. Work up this admission included an EGD showing gastric ulcers & gastritis likely accounting for his symptoms. Today we have been consulted for concern of wound infection at his umbilical incision. Patient was suppose to have routine post op follow up in the office this week, but due to admission was unable to attend. He reports a blister forming at the top of his belly button that recently popped and another one has developed to the left lateral portion of his incision now. He denies any issues with the wound otherwise. No fevers or drainage from the wound per his report. He has upper abdominal discomfort and some pulling sensation in his right groin. No CBC today, but on 09/10 WBC normal. Vitals are stable. On exam umbilical incision with red open blister superiorly without drainage, there is a closed reddened blister to the left side of wound, along with adherent slough like tissue in inferior part of umbilical crater. There is slight skin overlapping on R side of incision with some redness noted & I was able to express a scant amount of pus. Agree with starting antibiotics. Appreciate wound care consultation. We will recommend complete course of abx upon dispo along with daily dressing changes in the form of silver acticoat, gauze, and tape for the next week. No plans for anything procedurally necessary at this time. (2) Hx laparoscopic cholecystectomy: History of Present Illness Attending Physician: Destiny Joaquin MD History of Present Illness This is a 73yM with a PMH of cardiomyopathy with ICD, CKD, HTN, who is s/p lap cholecystectomy and umbilical hernia repair with Dr. Jeffries on 08/22/24 admitted on the night of 09/08 with chest pains. Work up this admission included an EGD showing gastric ulcers likely accounting for his symptoms. Today we have been consulted for concern of wound infection at his umbilical incision. Patient was suppose to have routine post op follow up in the office this week, but due to admission was unable to attend. He reports a blister forming at the top of his belly button that recently popped and another one has developed to the left lateral portion of his incision now. He denies any issues with the wound otherwise. No fevers or drainage from the wound per his report. He has upper abdominal discomfort and some pulling sensation in his right groin. Allergies Allergy/AdvReac Type Severity Reaction Status Date / Time heparin Allergy Severe CAUSES HIT Verified 09/05/24 10:46 silver AdvReac Intermediate TOPICAL - Verified 09/05/24 10:46 BURNING, PAIN Home Medications Medication Instructions Recorded Confirmed Type aspirin 81 mg tablet,delayed 81 mg PO DAILY #90 tabs 03/10/22 09/08/24 Rx release amoxicillin 500 mg capsule 2,000 mg PO DIRECTED PRN PRIOR 07/22/22 09/08/24 History TO DENTAL APPT. empagliflozin 10 mg tablet 10 mg PO DAILY #90 tabs 11/13/23 09/08/24 Rx (Jardiance) CPAP Machine #1 ea 02/23/24 09/08/24 Rx apixaban 5 mg tablet 5 mg PO BID #180 tabs 02/23/24 09/08/24 Rx atorvastatin 20 mg tablet 20 mg PO DAILY #90 tabs 02/23/24 09/08/24 Rx bumetanide 0.5 mg tablet 0.5 mg PO DAILY #90 tabs 02/23/24 09/08/24 Rx gabapentin 600 mg tablet 600 mg PO HS #90 tabs 02/23/24 09/08/24 Rx metoprolol succinate 25 mg 25 mg PO DAILY #90 tabs 02/23/24 09/08/24 Rx tablet,extended release 24 hr nitroglycerin 0.4 mg sublingual 0.4 mg sublingual DIRECTED PRN 04/15/24 09/08/24 Rx tablet Chest Pain #10 tabs pantoprazole 40 mg tablet,delayed 40 mg PO DAILY #90 tabs 06/25/24 09/08/24 Rx release sacubitril 24 mg-valsartan 26 mg 0.5 tab PO BID #180 tabs 07/11/24 09/08/24 Rx tablet potassium chloride 10 mEq 10 meq PO DAILY #90 caps 08/15/24 09/08/24 Rx capsule,extended release sertraline 25 mg tablet 50 mg (2 x 25 mg) PO DAILY #90 tabs 08/15/24 09/08/24 Rx sotalol 80 mg tablet 80 mg PO BID 08/29/24 09/08/24 History zolpidem 10 mg tablet 5 - 10 mg (0.5 - 1 x 10 mg) PO HS 08/29/24 09/08/24 Rx PRN insomnia #30 tabs lorazepam 0.5 mg tablet 0.5 mg PO DAILY PRN anxiety #30 09/05/24 09/08/24 Rx tabs Patient History Medical History Acute cholecystitis Bronchitis Insomnia Sustained ventricular tachycardia Obstructive sleep apnea treated with continuous positive airway pressure (CPAP) Surgical History H/O umbilical hernia repair (08/22/24) Laparoscopic Cholecystectomy, Repair of Umbilical Hernia - Darryn Jeffries, DO Hx laparoscopic cholecystectomy (08/22/24) Laparoscopic Cholecystectomy, Repair of Umbilical Hernia - Darryn Jeffries DO S/P quadruple vessel bypass 2009, in [place] S/P below knee amputation L leg 2012 Family History Denies family history of Ovarian cancer Prostate cancer Breast cancer Colorectal cancer Social History Smoking Status: Never smoker Tobacco Type: Cigarettes Age Started Using Tobacco: 16; Age Quit Using Tobacco: 63; packs per day: 1; Cigarettes Per Day: 20; Second Hand Exposure: No; Do You Dip or Chew Tobacco: No; Hx Alcohol Use: No Hx Substance Use: No Preferred Language: Greek Communication Ability: Effective Communication Ability Comment: hard of hearing Cdl Bulk Driver Required: No Beliefs That Will Affect Care: None marital status: Current Living Situation: Spouse current occupational status: retired Feels Safe at Home: Yes caffeine: Yes Dental Care, Regularly: Yes Seatbelt Use: always Sunscreen Use: Yes Assistive Devices: None Review of Systems Constitutional: no fever and no chills Gastrointestinal: + abdominal pain (upper abdomen) and + p roblem reported (some redness and blistering around umbilical site); no nausea Physical Exam Physical Exam: awake/alert, no distress Respiratory: normal respiratory effort Gastrointestinal (Abdomen): Inspection/Auscultation: + abdominal surgical incision; abdomen not distended umbilical incision with red open blister superiorly without drainage, reddened blister left side of wound, with slough like tissue in inferior part of umbilical crater, slight skin overlapping on R side of incision with some redness noted, was able to express a scant amount of pus Results & Data Vital Signs (Past 12 Hours) Vital Signs Temp Pulse Pulse Resp BP Pulse Ox O2 Del Method 09/12/24 12:04 97.9 F 63 20 101/64 95 Room Air 09/12/24 08:57 97/61 L 09/12/24 07:59 97.9 F 65 20 104/65 96 Room Air 09/12/24 07:00 71 09/12/24 04:13 24 09/12/24 03:46 98.2 F 67 18 99/63 L 94 CPAP 09/12/24 00:45 68 14 96 PG Care Time/CCT Total # of Minutes Spent Total Time Spent with Patient: Total time spent is greater than 50% in coordination of care (as documented) at patient's floor/unit and/or counseling patient: Coding Level of Care Code None Diagnoses H/O umbilical hernia repair Z98.890; Z87.19 Hx laparoscopic cholecystectomy Z90.49
--- NOTE | 2024-09-12 17:54 | Hospitalist Progress Note ---
Date of Service September 11, 2024 Assessment & Plan (1) Chest pain: Plan: Noncardiac in nature looks like patient has epigastric pain due to gastritis (2) HFrEF (heart failure with reduced ejection fraction): (3) CKD (chronic kidney disease) stage 3, GFR 30-59 ml/min: (4) Obstructive sleep apnea: (5) ICD (implantable cardioverter-defibrillator), biventricular, in situ: (6) Ischemic cardiomyopathy: (7) CAD (coronary artery disease), [place] coronary artery: (8) Chronic pain syndrome: (9) Hypertension: (10) Hyperlipidemia LDL goal <70: (11) Atrial flutter: Plan 73 year old male with PMHx that includes CAD, paroxysmal A-fib/flutter, HFrEF, CKD, RHIANNA, HTN, and HLD presenting with chest pain: #Chest Pain: Unclear etiology, differential includes unstable angina vs GERD vs costochondritis vs other - resolved 1) Chest pain: Plan: Noncardiac in nature looks like patient has epigastric pain due to gastritis (2) HFrEF (heart failure with reduced ejection fraction): (3) CKD (chronic kidney disease) stage 3, GFR 30-59 ml/min: (4) Obstructive sleep apnea: (5) ICD (implantable cardioverter-defibrillator), biventricular, in situ: (6) Ischemic cardiomyopathy: (7) CAD (coronary artery disease), [place] coronary artery: (8) Chronic pain syndrome: (9) Hypertension: (10) Hyperlipidemia LDL goal <70: (11) Atrial flutter: # new skin lesion with redness and induarion around the umblicus -started with IV ancef -wound consult Dispo: Admit PCU FEN/GI: HH diet VTE ppx: Eliquis DNR/DNI Admission and Anticipated Discharge Date Admission Date: September 09, 2024 Subjective reported significant relief with carafate , has new induration around the umblial area with impetigious secretions Physical Exam Physical Exam: onstitutional: no acute distress HEENT: NCAT, no conjunctival injection CV: RRR, extremities well-perfused, no LE edema scar from coronary artery bypass graft surgery and he biventricular pacemaker in the chest Resp: Lungs clear to auscultation, no increased work of breathing GI: nondistended status post gallbladder surgery recently, erythema , and induarion around the belly MSK: Patient has a left lower extremity amputation this was after a clot in his left leg while he was getting recovery from coronary artery bypass graft surgery in 2009 Skin: warm, dry, no rash appreciated Neuro: alert, oriented, no focal neurologic deficit appreciated Results & Data Results & Data Vital Signs (Past 12 Hours) Vital Signs Temp Pulse Pulse Resp BP Pulse Ox O2 Del Method 09/11/24 19:59 36.8 C 59 L 19 106/68 95 Room Air 09/11/24 16:13 36.6 C 73 18 107/74 94 Room Air 09/11/24 14:53 60 09/11/24 12:08 36.5 C 72 18 105/69 95 Room Air 09/11/24 10:33 60 09/11/24 09:10 92/54 L PG Care Time/CCT Total # of Minutes Spent Total Time Spent with Patient: Total time spent is greater than 50% in coordination of care (as documented) at patient's floor/unit and/or counseling patient: Coding Level of Care Code 27683 SUB INP/OBS CARE 2/35MIN Diagnoses Chest pain R07.9 HFrEF (heart failure with reduced ejection fraction) I50.20 CKD (chronic kidney disease) stage 3, GFR 30-59 ml/min N18.30 Obstructive sleep apnea G47.33 ICD (implantable cardioverter-defibrillator), biventricular, in situ Z95.810 Ischemic cardiomyopathy I25.5 Coronary artery disease of [place] artery of [place] heart with stable angina pectoris I25.118 Associated angina: with stable angina [place] vs. transplanted heart: [place] heart Chronic pain syndrome G89.4 Primary hypertension I10 Hypertension type: primary hypertension Hyperlipidemia LDL goal <70 E78.5 Atrial flutter, unspecified type I48.92 Atrial flutter type: unspecified (7) CAD (coronary artery disease), [place] coronary artery Associated angina: with stable angina [place] vs. transplanted heart: [place] heart Qualified Code(s): I25.118 - Atherosclerotic heart disease of [place] coronary artery with other forms of angina pectoris (9) Hypertension Hypertension type: primary hypertension Qualified Code(s): I10 - Essential (primary) hypertension (11) Atrial flutter Atrial flutter type: unspecified Qualified Code(s): I48.92 - Unspecified atrial flutter
[2024-09-13 06:41] LABS: Hematocrit (blood only) 39.4 % (42.0-52.0); Hemoglobin 13.2 g/dl (14.0-18.0); Mean Corpuscular Hemoglobin 30.6 pg (25.0-34.0); Mean Corpuscular Hgb Conc 33.5 g/dL (32.0-36.0); Mean Corpuscular Volume 91.4 fL (80.0-100.0); Mean Platelet Volume 10.8 fL (9.4-12.4); Platelet Count 124 K/uL (130-400); RDW Coefficient of Variation 12.5 % (11.5-14.5); RDW Standard Deviation 42.4 fL (36.4-46.3); Red Blood Count 4.31 M/uL (4.70-6.10); White Blood Count 5.87 K/ul (4.8-10.8)
[2024-09-13 07:08] LABS: Anion Gap 4 (3-11); BUN Creatinine Ratio 19.6 (10-20); Blood Urea Nitrogen 21 mg/dl (6-23); C Reactive Protein 1.29 mg/dl (0-0.5); Calcium 8.4 mg/dl (8.6-10.3); Carbon Dioxide 31 mmol/L (21-32); Chloride 105 mmol/L (98-107); Creatinine Clr Calc Pharmacy 59.7 ml/min; Glucose 84 mg/dl (70-99(Fasting)); Sodium 140 mmol/L (136-145)
--- NOTE | 2024-09-13 08:30 | Surgery Progress Note ---
Date of Service September 13, 2024 Assessment & Plan (1) H/O umbilical hernia repair: Plan: pt is s/p lap debi and umbilical hernia repair on 08/22. we are on board for concern of wound infection at umbilical site would continue course of abx and local wound care. appreciate wound cares help as well pt is allergic to silver, therefore will recommend plain aquacel with optifoam, change daily recommend sending pt on a wk of oral abx upon dispo september f/u in office in 1-2 weeks Admission and Anticipated Discharge Date Admission Date: September 09, 2024 Subjective Patient denies any issues with wound overnight. Physical Exam Physical Exam: awake/alert, no distress Gastrointestinal (Abdomen): wound similar appearing to yesterday. small amount of pus expressed from lateral portions of incision, left lateral skin blister broke open Results & Data Vital Signs (Past 12 Hours) Vital Signs Temp Pulse Resp BP Pulse Ox O2 Del Method FiO2 09/13/24 07:57 97.9 F 63 19 106/66 97 Room Air 09/13/24 04:15 20 21 09/13/24 03:17 98.2 F 75 22 115/68 96 Room Air 09/13/24 02:43 CPAP 09/13/24 01:54 22 21 09/12/24 23:06 98.1 F 77 16 116/69 96 Room Air PG Care Time/CCT Total # of Minutes Spent Total Time Spent with Patient: Total time spent is greater than 50% in coordination of care (as documented) at patient's floor/unit and/or counseling patient: Coding Level of Care Code None Diagnoses H/O umbilical hernia repair Z98.890; Z87.19
--- NOTE | 2024-09-13 19:11 | Hospitalist Progress Note ---
Date of Service September 13, 2024 Assessment & Plan (1) Chest pain: Plan: Noncardiac in nature looks like patient has epigastric pain due to gastritis (2) HFrEF (heart failure with reduced ejection fraction): (3) CKD (chronic kidney disease) stage 3, GFR 30-59 ml/min: (4) Obstructive sleep apnea: (5) ICD (implantable cardioverter-defibrillator), biventricular, in situ: (6) Ischemic cardiomyopathy: (7) CAD (coronary artery disease), [place] coronary artery: (8) Chronic pain syndrome: (9) Hypertension: (10) Hyperlipidemia LDL goal <70: (11) Atrial flutter: Plan 73 year old male with PMHx that includes CAD, paroxysmal A-fib/flutter, HFrEF, CKD, RHIANNA, HTN, and HLD presenting with chest pain: #Chest Pain: Unclear etiology, differential includes unstable angina vs GERD vs costochondritis vs other - resolved 1) Chest pain: Plan: Noncardiac in nature looks like patient has epigastric pain due to gastritis (2) HFrEF (heart failure with reduced ejection fraction): (3) CKD (chronic kidney disease) stage 3, GFR 30-59 ml/min: (4) Obstructive sleep apnea: (5) ICD (implantable cardioverter-defibrillator), biventricular, in situ: (6) Ischemic cardiomyopathy: (7) CAD (coronary artery disease), [place] coronary artery: (8) Chronic pain syndrome: (9) Hypertension: (10) Hyperlipidemia LDL goal <70: (11) Atrial flutter: 1) H/O umbilical hernia repair: Plan: pt is s/p lap debi and umbilical hernia repair on 08/22. we are on board for concern of wound infection at umbilical site would continue course of abx and local wound care. appreciate wound cares help as well pt is allergic to silver, therefore will recommend plain aquacel with optifoam, change daily recommend sending pt on a wk of oral abx upon dispo september f/u in office in 1-2 weeks # new skin lesion with redness and induarion around the umblicus -started with IV ancef -wound consult Dispo: Admit PCU FEN/GI: HH diet VTE ppx: Eliquis DNR/DNI Admission and Anticipated Discharge Date Admission Date: September 09, 2024 Subjective Patient denies any issues with wound overnight. 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 clot in his left l eg while he was ge tting recovery fro m coronary artery bypass graft surge ry in 2009 Skin: w arm, dry, no rash appreciated Neuro: alert, oriented, no focal neurologi c deficit apprecia abdiel Results & Data Results & Data Vital Signs (Past 12 Hours) Vital Signs Temp Pulse Pulse Resp BP Pulse Ox O2 Del Method 09/13/24 15:31 36.7 C 61 19 105/62 95 Room Air 09/13/24 15:20 60 09/13/24 11:00 71 09/13/24 10:51 36.5 C 61 20 102/62 95 Room Air 09/13/24 07:57 36.6 C 63 19 106/66 97 Room Air PG Care Time/CCT Total # of Minutes Spent Total Time Spent with Patient: Total time spent is greater than 50% in coordination of care (as documented) at patient's floor/unit and/or counseling patient: Coding Level of Care Code 11166 SUB INP/OBS CARE 2/35MIN Diagnoses Chest pain R07.9 HFrEF (heart failure with reduced ejection fraction) I50.20 CKD (chronic kidney disease) stage 3, GFR 30-59 ml/min N18.30 Obstructive sleep apnea G47.33 ICD (implantable cardioverter-defibrillator), biventricular, in situ Z95.810 Ischemic cardiomyopathy I25.5 Coronary artery disease of [place] artery of [place] heart with stable angina pectoris I25.118 [place] vs. transplanted heart: [place] heart Associated angina: with stable angina Chronic pain syndrome G89.4 Primary hypertension I10 Hypertension type: primary hypertension Hyperlipidemia LDL goal <70 E78.5 Atrial flutter, unspecified type I48.92 Atrial flutter type: unspecified (7) CAD (coronary artery disease), [place] coronary artery [place] vs. transplanted heart: [place] heart Associated angina: with stable angina Qualified Code(s): I25.118 - Atherosclerotic heart disease of [place] coronary artery with other forms of angina pectoris (9) Hypertension Hypertension type: primary hypertension Qualified Code(s): I10 - Essential (primary) hypertension (11) Atrial flutter Atrial flutter type: unspecified Qualified Code(s): I48.92 - Unspecified atrial flutter
[2024-09-14 07:34] LABS: Calcium 8.9 mg/dl (8.6-10.3); Creatinine Clr Calc Pharmacy 60.2 ml/min; Potassium 3.8 mmol/L (3.5-5.1)
[2024-09-14 08:42] VITALS: PULSE 79; RESP 20; TEMP 97.7; O2SAT 97
--- NOTE | 2024-09-14 11:39 | Discharge Summary ---
Date of Service September 14, 2024 Admission HPI Per Admitting Provider 73 year old male with PMHx that includes CAD, paroxysmal A-fib/flutter, HFrEF, CKD, RHIANNA, HTN, and HLD presenting with chest pain. Chest pain developed shortly after discharge from [facility] on 08/28, describes as an intermittent sensation of substernal chest pressure that became constant and more severe, 10/10 today prior to arrival. Notes associated radiation into back and arms. Also notes shortness of breath today. No positional relation, non- exertional, no postprandial exacerbation. Denies recent illness, fever/chills. Pain improved with aspirin and morphine after arrival to ED. Hospitalization in August was due to intractable abdominal pain, s/p cholecystectomy and ERCP to remove stones from common bile duct. During this perioperative period, Eliquis was held for roughly 10 days, resumed 09/01. during patient's hospital stay he was seen by cardiolog and gastroenterology EGD was done it showed gastritis without active bleeding patient responded very well to Carafate while he was in the hospital umbilical port site infection was noted patient was started on IV Ancef it responded so he is going home on Keflex 500 mg p.o. p.o. every 6 hours for 7 to 10 days Patient's blood pressure m edications were on hold because of systolic blood pressure of 90 family mentioned that this is his baseline he has a blood pressure measuring machine advised to titrate and if patient is dizzy then either reduce the dose or skip the dose Discharge Data Consultations 09/08/24 22:00 ED Decision to Admit Stat 09/09/24 02:07 Consult Cardiology Routine 09/09/24 15:27 Consult Gastroenterology Routine 09/12/24 11:11 Consult General Surgery Stat Procedures Performed Operation Date: 09/10/24 16:45 Actual Procedures p EGD Biopsy Cytology - Jose Connor MD Hospital Course (1) Chest pain: Noncardiac in nature looks like patient has epigastric pain due to gastritis patient responded very well to Carafate (2) HFrEF (heart failure with reduced ejection fraction): Continue cardiac medications and outpatient follow-up with cardiology (3) CKD (chronic kidney disease) stage 3, GFR 30-59 ml/min: (4) Obstructive sleep apnea: (5) ICD (implantable cardioverter-defibrillator), biventricular, in situ: (6) Ischemic cardiomyopathy: (7) CAD (coronary artery disease), [place] coronary artery: (8) Chronic pain syndrome: (9) Hypertension: (10) Hyperlipidemia LDL goal <70: (11) Atrial flutter: Plan 73 year old male with PMHx that includes CAD, paroxysmal A-fib/flutter, HFrEF, CKD, RHIANNA, HTN, and HLD presenting with chest pain: #Chest Pain: Unclear etiology, differential includes unstable angina vs GERD vs costochondritis vs other - resolved 1) Chest pain: Plan: Noncardiac in nature looks like patient has epigastric pain due to gastritis (2) HFrEF (heart failure with reduced ejection fraction): (3) CKD (chronic kidney disease) stage 3, GFR 30-59 ml/min: (4) Obstructive sleep apnea: (5) ICD (implantable cardioverter-defibrillator), biventricular, in situ: (6) Ischemic cardiomyopathy: (7) CAD (coronary artery disease), [place] coronary artery: (8) Chronic pain syndrome: (9) Hypertension: (10) Hyperlipidemia LDL goal <70: (11) Atrial flutter: 1) H/O umbilical hernia repair: Plan: pt is s/p lap debi and umbilical hernia repair on 08/22. we are on board for concern of wound infection at umbilical site would continue course of abx and local wound care. appreciate wound cares help as well pt is allergic to silver, therefore will recommend plain aquacel with optifoam, change daily recommend sending pt on a wk of oral abx Keflex 500 mg p.o. every 6 hours may f/u in office in 1-2 weeks # Patient is being discharged home Discharge Instructions Do not pick on the skin around the umbilicus maintain good hygiene apply dressing regularly and follow-up with primary care physician in 7 to 10 days Coding Level of Care Code 42778 INP/OBS DISCH >30 MIN Diagnoses Chest pain R07.9 HFrEF (heart failure with reduced ejection fraction) I50.20 CKD (chronic kidney disease) stage 3, GFR 30-59 ml/min N18.30 Obstructive sleep apnea G47.33 ICD (implantable cardioverter-defibrillator), biventricular, in situ Z95.810 Ischemic cardiomyopathy I25.5 Coronary artery disease of [place] artery of [place] heart with stable angina pectoris I25.118 [place] vs. transplanted heart: [place] heart Associated angina: with stable angina Chronic pain syndrome G89.4 Primary hypertension I10 Hypertension type: primary hypertension Hyperlipidemia LDL goal <70 E78.5 Atrial flutter, unspecified type I48.92 Atrial flutter type: unspecified Time Spent (min) 35
[2024-09-14 11:42] VITALS: BP 118/74
--- NOTE | 2024-09-14 14:22 | Surgery Progress Note ---
Date of Service September 14, 2024 Assessment & Plan (1) H/O umbilical hernia repair: Plan: routine local wound care reviewed he will be d/c on week of abx september f/ in office with dr. freeman in 1-2 weeks Admission and Anticipated Discharge Date Admission Date: September 09, 2024 Supervising Physician Co-Signing Physician Notes I have seen and examined this patient this am and I agree with this plan Subjective patient denies any pain with wound, reports it is feeling and looking better Physical Exam Physical Exam: awake/alert, no distress Skin: wound stable from yesterday, 2 blisters superior and lateral with some slough like tissue Results & Data Vital Signs (Past 12 Hours) Vital Signs Temp Pulse Pulse Resp BP BP Pulse Ox 09/14/24 11:40 97.7 F 79 20 114/69 118/74 97 09/14/24 08:41 97.7 F 79 20 114/69 97 09/14/24 08:26 60 09/14/24 04:00 18 93 09/14/24 03:21 97.9 F 63 19 93/56 L 96 O2 Del Method FiO2 09/14/24 11:40 09/14/24 08:41 CPAP 09/14/24 08:26 09/14/24 04:00 21 09/14/24 03:21 CPAP PG Care Time/CCT Total # of Minutes Spent Total Time Spent with Patient: Total time spent is greater than 50% in coordination of care (as documented) at patient's floor/unit and/or counseling patient: Coding Level of Care Code 94334 Post Operative Follow-Up Diagnoses H/O umbilical hernia repair Z98.890; Z87.19
--- NOTE | 2024-09-17 23:25 | Billing Data ---
Date of Service September 09, 2024 Coding Level of Care Code 47980 INT INP/OBS CARE
== END 2024-09-14 12:48 | disposition home or self-care (01) | DRG 392 ==
LOC: ED 20:04 → INTOOBSV 09-09 00:08 → SUATTDRO 09-09 00:08 → 2S 09-09 00:08

== ENCOUNTER 2025-02-15 14:05 | Inpatient (IN) ==
--- NOTE | 2025-02-15 14:33 | Emergency Department Note ---
History of Present Illness General Chief complaint: Bite Stated complaint: INFECTED BUG BITE Time Seen by Provider: 02/15/25 14:14 History of Present Illness Maximum Pain Intensity: 6 This is a 74-year-old male who presents to the emergency department via private vehicle with complaints "infected bug bite". The patient notes that this past he began with a small amount of redness just inferior to the umbilicus that has progressed now inferiorly towards the penis. No trauma. No injury. He questions if perhaps this could be a bug bite. He denies any fevers, chills, nausea or vomiting. The area is uncomfortable and there is some burning. No known drug allergies. Current pain 10/15. Home Medications Medication Instructions Recorded Confirmed Type aspirin 81 mg tablet,delayed 81 mg PO DAILY #90 tabs 03/10/22 02/15/25 Rx release CPAP Machine #1 ea 02/23/24 02/04/25 Rx apixaban 5 mg tablet 5 mg PO BID #180 tabs 02/23/24 02/15/25 Rx atorvastatin 20 mg tablet 20 mg PO DAILY #90 tabs 02/23/24 02/15/25 Rx bumetanide 0.5 mg tablet 0.5 mg PO DAILY #90 tabs 02/23/24 02/15/25 Rx metoprolol succinate 25 mg 25 mg PO DAILY #90 tabs 02/23/24 02/15/25 Rx tablet,extended release 24 hr nitroglycerin 0.4 mg sublingual 0.4 mg sublingual DIRECTED PRN 04/15/24 02/15/25 Rx tablet Chest Pain #10 tabs pantoprazole 40 mg tablet,delayed 40 mg PO DAILY #90 tabs 06/25/24 02/15/25 Rx release potassium chloride 10 mEq 10 meq PO DAILY #90 caps 08/15/24 02/15/25 Rx capsule,extended release lorazepam 0.5 mg tablet 0.5 mg PO DAILY PRN anxiety #30 09/05/24 02/15/25 Rx tabs sertraline 50 mg tablet 50 mg PO DAILY #90 tabs 10/22/24 02/15/25 Rx gabapentin 600 mg tablet 600 mg PO HS 10/28/24 02/15/25 History sacubitril 24 mg-valsartan 26 mg 1 tab PO BID 10/28/24 02/15/25 History tablet sotalol 120 mg tablet 120 mg PO BID 10/28/24 02/15/25 History empagliflozin 10 mg tablet 10 mg PO DAILY #90 tabs 11/07/24 02/15/25 Rx (Jardiance) zolpidem 10 mg tablet 5 - 10 mg (0.5 - 1 x 10 mg) PO HS 02/12/25 02/15/25 Rx PRN insomnia #30 tabs Allergies Allergy/AdvReac Type Severity Reaction Status Date / Time heparin Allergy Severe CAUSES HIT Verified 02/04/25 11:31 silver AdvReac Intermediate TOPICAL - Verified 02/04/25 11:31 BURNING, PAIN Past Med/Surg History Problem List (Updated 02/15/25 @ 21:27 by Cheikh Calles PA-C) Cellulitis of abdominal wall (Acute) Cellulitis HFrEF (heart failure with reduced ejection fraction) s/p pacemaker/ICD ICD (implantable cardioverter-defibrillator), biventricular, in situ Ischemic cardiomyopathy CAD (coronary artery disease), [place] coronary artery Gastritis H/O umbilical hernia repair (08/22/24) Laparoscopic Cholecystectomy, Repair of Umbilical Hernia - Darryn Jeffries DO Hx laparoscopic cholecystectomy (08/22/24) Laparoscopic Cholecystectomy, Repair of Umbilical Hernia - Darryn Jeffries, Cholelithiasis Postprandial epigastric pain Acute hypotension (Acute) Subclinical hypothyroidism Gout Phantom limb History of basal cell carcinoma Anticoagulant long-term use Anxiety Hyperlipidemia LDL goal <70 Paroxysmal ventricular tachycardia (Chronic 11/01/10) GERD (gastroesophageal reflux disease) Medical History AICD at end of battery life Hx of gout Hx of ventricular tachycardia (2010) HLD (hyperlipidemia) Anticoagulant long-term use Eliquis daily Hx of basal cell carcinoma Hypothyroidism Hx of myocardial infarction 05/2009 Hx of Lyme disease recently treated for reoccurrence of lymes, 10/2024 GERD (gastroesophageal reflux disease) Hx of gastritis Anxiety Pacemaker medtronic, placed 2012- w/ Dr Schwarz, replaced 08/2024 at [place]; checked remotely Obstructive sleep apnea CPAP CKD (chronic kidney disease) stage 3, GFR 30-59 ml/min Chronic pain syndrome Hypertension Insomnia Surgical History History of cataract surgery right Hx of umbilical hernia repair done w/ Laparoscopic Cholecystectomy Hx of cardiac catheterization 2003 - sob > x 1 stent, [facility] Hx of four vessel coronary artery bypass graft 2009> [facility] History of cholecystectomy S/P below knee amputation L leg 2012; uses a prosthetic limb Family History Denies family history of Ovarian cancer Prostate cancer Breast cancer Colorectal cancer Social History Smoking Status: Former smoker Tobacco Type: Cigarettes Age Started Using Tobacco: 16; Age Quit Using Tobacco: 63; packs per day: 1; Second Hand Exposure: No; Do You Dip or Chew Tobacco: No; Hx Alcohol Use: No Preferred Language: [place] Communication Ability: Effective Communication Ability Comment: pt [facility] Training Personnel Supervisor Required: No Beliefs That Will Affect Care: None marital status: Current Living Situation: Spouse current occupational status: retired Feels Safe at Home: Yes caffeine: Yes Dental Care, Regularly: Yes Seatbelt Use: always Sunscreen Use: Yes Assistive Devices: Cane, CPAP, Glasses, Hearing Aid - Left and Prosthesis Review of Systems A total of 10 systems reviewed and were otherwise negative Physical Exam Vital Signs Vital Signs - 24 hr 02/15/25 14:07 02/15/25 15:06 02/15/25 15:32 Temperature 36.8 C Temperature Source Temporal Artery Scan Pulse Rate 78 60 Pulse Rate [Finger] 82 Pulse Rate from SpO2 Sensor 60 Respiratory Rate 18 16 20 Blood Pressure 100/61 Blood Pressure [Right Arm] 109/70 Blood Pressure Mean 74 Blood Pressure Mean [Right Arm] 83 Pulse Oximetry 94 93 93 Oxygen Delivery Method Room Air Sepsis Recent Fever Within 48 Hours No Sepsis New/Unexplained Change in Mental Status No Sepsis Action Taken by Nursing No Action Required 02/15/25 16:45 02/15/25 16:45 02/15/25 16:45 Temperature Temperature Source Pulse Rate 63 62 Pulse Rate [Finger] Pulse Rate from SpO2 Sensor 62 Respiratory Rate 17 Blood Pressure 94/61 L Blood Pressure [Right Arm] Blood Pressure Mean 75 Blood Pressure Mean [Right Arm] Pulse Oximetry 94 Oxygen Delivery Method Sepsis Recent Fever Within 48 Hours Sepsis New/Unexplained Change in Mental Status Sepsis Action Taken by Nursing 02/15/25 16:45 02/15/25 16:45 02/15/25 16:45 Temperature Temperature Source Pulse Rate Pulse Rate [Finger] Pulse Rate from SpO2 Sensor Respiratory Rate Blood Pressure 94/61 L 94/61 L 94/61 L Blood Pressure [Right Arm] Blood Pressure Mean 75 75 75 Blood Pressure Mean [Right Arm] Pulse Oximetry Oxygen Delivery Method Sepsis Recent Fever Within 48 Hours Sepsis New/Unexplained Change in Mental Status Sepsis Action Taken by Nursing 02/15/25 16:54 02/15/25 16:57 02/15/25 17:00 Temperature Temperature Source Pulse Rate 60 61 Pulse Rate [Finger] Pulse Rate from SpO2 Sensor 60 60 Respiratory Rate 16 17 Blood Pressure 93/57 L Blood Pressure [Right Arm] Blood Pressure Mean 65 Blood Pressure Mean [Right Arm] Pulse Oximetry 95 95 Oxygen Delivery Method Sepsis Recent Fever Within 48 Hours Sepsis New/Unexplained Change in Mental Status Sepsis Action Taken by Nursing 02/15/25 17:00 02/15/25 17:00 02/15/25 17:03 Temperature Temperature Source Pulse Rate 64 Pulse Rate [Finger] Pulse Rate from SpO2 Sensor 60 Respiratory Rate 16 Blood Pressure 93/57 L 93/57 L Blood Pressure [Right Arm] Blood Pressure Mean 65 65 Blood Pressure Mean [Right Arm] Pulse Oximetry 94 Oxygen Delivery Method Sepsis Recent Fever Within 48 Hours Sepsis New/Unexplained Change in Mental Status Sepsis Action Taken by Nursing 02/15/25 17:18 Temperature Temperature Source Pulse Rate 51 L Pulse Rate [Finger] Pulse Rate from SpO2 Sensor 63 Respiratory Rate 19 Blood Pressure Blood Pressure [Right Arm] Blood Pressure Mean Blood Pressure Mean [Right Arm] Pulse Oximetry 96 Oxygen Delivery Method Sepsis Recent Fever Within 48 Hours Sepsis New/Unexplained Change in Mental Status Sepsis Action Taken by Nursing VITAL SIGNS - Vital signs and nursing notes were reviewed. Stable and afebrile. GENERAL -74-year-old male appearing his stated age who is in no acute distress. Communicates well with provider and answers questions appropriately. SKIN -erythema just inferior to the umbilicus with a small 1 cm slight ulcerative type appearance with surrounding induration and erythema tracking inferior to the superior penile region. HEAD - NC/AT. EYES - Sclera anicteric. LUNGS - CTA CARDIAC - RRR ABDOMEN - Abdominal contour normal without pulsations or visible masses. Skin as above. BS normoactive all four quadrants. No tenderness, palpable masses, hepatosplenomegaly, or ascites noted. EXTREMITIES - No clubbing or peripheral cyanosis. +5/5 strength noted in UE/LE bilaterally. NEUROLOGIC - Cranial nerves grossly intact PSYCH -alert, oriented and pleasant on exam. Course Administered Medications Discontinued Medications Piperacillin Sod/Tazobactam Sod (Zosyn) 4.5 gm in 100 mls @ 200 mls/hr IV NOW ONE; Protocol Stop: 02/15/25 16:59 Last Infusion: 02/15/25 18:59 Dose: Infused Documented By: Admin: 02/15/25 16:41 Dose: 200 mls/hr Documented By: RUFINO Sodium Chloride (Nss) 500 mls @ 500 mls/hr IV .Q1H ONE Stop: 02/15/25 18:31 Last Infusion: 02/15/25 18:59 Dose: Infused Documented By: Admin: 02/15/25 17:36 Dose: 500 mls/hr Documented By: RUFINO Ioversol (Optiray 320 100ml) 93 ml IV ONCE ONE Stop: 02/15/25 16:21 Last Admin: 02/15/25 16:20 Dose: 93 ml Documented By: SHOBHA Medical Decision Making Laboratory Data 02/15/25 14:44 02/15/25 14:44 Lab Results 02/15/25 Range/Units 14:44 WBC 8.67 (4.8-10.8) K/ul RBC 5.11 (4.70-6.10) M/uL Hgb 14.9 (14.0-18.0) g/dl Hct 45.4 (42.0-52.0) % MCV 88.8 (80.0-100.0) fL MCH 29.2 (25.0-34.0) pg MCHC 32.8 (32.0-36.0) g/dL RDW Std Deviation 42.8 (36.4-46.3) fL RDW Coeff of Faby 13.2 (11.5-14.5) % Plt Count 152 (130-400) K/uL MPV 11.0 (9.4-12.4) fL Immature Gran % (Auto) 0.2 % Neut % (Auto) 82.6 % Lymph % (Auto) 8.3 % Rich % (Auto) 7.5 % Eos % (Auto) 1.2 % Baso % (Auto) 0.2 % Neut # (Auto) 7.16 H (1.40-6.50) K/uL Lymph # (Auto) 0.72 L (1.20-3.40) K/uL Rich # (Auto) 0.65 H (0.11-0.59) K/uL Eos # (Auto) 0.10 (0.00-0.50) K/uL Baso # (Auto) 0.02 (0.00-0.20) K/uL Immature Gran # (Auto) 0.02 (0.01-0.20) K/uL Sodium 137 (136-145) mmol/L Potassium 4.2 (3.5-5.1) mmol/L Chloride 103 (98-107) mmol/L Carbon Dioxide 28 (21-32) mmol/L Anion Gap 6 (3-11) BUN 23 (6-23) mg/dl Creatinine 1.27 (0.6-1.4) mg/dl Est Cr Clr Drug Dosing 49.5 ml/min eGFR 58.55 BUN/Creatinine Ratio 18.1 (10-20) Glucose 99 (70-99(Fasting)) mg/dl Lactate 1.3 (0.4-2.0) mmol/L Calcium 9.1 (8.6-10.3) mg/dl Total Bilirubin 2.7 H (0.2-1.0) mg/dl AST 7 L (13-39) U/L ALT 6 L (7-52) U/L Alkaline Phosphatase 97 (34-104) U/L Total Protein 7.0 (6.0-8.3) gm/dl Albumin 4.0 (3.4-5.0) gm/dl Globulin 3.0 (2.5-4.0) gm/dl Albumin/Globulin Ratio 1.3 (0.9-2) Procalcitonin < 0.02 (0-0.5) ng/ml Imaging Data Radiologist's Impression: Abdomen/Pelvis CT 02/15/25 14:32 EXAMINATION: CT of the abdomen and pelvis performed after the administration of IV contrast TECHNIQUE: Helical CT images from the lung bases through the symphysis pubis were obtained with contrast. Coronal and sagittal reformatted images were generated at a workstation for further assessment. Dose reduction techniques were achieved by using automatic exposure control and/or adjustment of mA and/or kV according to patient size and/or use of iterative reconstruction technique. COMPARISON: None HISTORY: Bug bite FINDINGS: Lower chest: No consolidation. No pleural effusion or pneumothorax. Emphysema. Cardiomegaly. AICD leads in place. Liver: No suspicious liver lesions. Portal veins appear patent. Scattered small cysts. Gallbladder: Cholecystectomy Spleen: Normal size. Pancreas: No suspicious pancreatic lesions. The pancreatic duct is not dilated. Adrenal glands: No adrenal nodules. Kidneys: No hydronephrosis or obstructing renal stones. Bladder / Pelvic organs: Unremarkable. Bowel: No bowel obstruction. No abnormal bowel wall thickening. The appendix is unremarkable. Lymph nodes: No retroperitoneal, mesenteric, or pelvic lymphadenopathy. Peritoneum / Retroperitoneum: No free fluid or air within the abdomen. Vessels: No infrarenal aortic aneurysm. Bones and soft tissues: No suspicious lesion in the bones. Extensive subcutaneous inflammatory fat stranding throughout the lower abdominal wall. No fluid collection. No soft tissue gas. IMPRESSION: Extensive subcutaneous inflammatory fat stranding throughout the lower abdominal wall. No fluid collection. No soft tissue gas. Findings are suggestive of cellulitis. Electronically signed by Mando Srinivasan 02-15-2025 4:34 PM MDM Narrative Patient was seen and evaluated as above in room D05. Review was performed of triage nursing notes and vital signs. I did review pertinent previous visits and patient history. After obtaining a thorough history and physical examination the above work up was performed. Patient presents with the above symptoms. He has had a progressive cellulitic appearance to the inferior abdominal wall over the past few days. He is well-appearing and nontoxic on examination. Options of care were discussed with the patient. IV access was established. Labs were drawn. Normal WBC. No anemia. No emergent metabolic disturbance. Mild elevation of T. bili at 2.7. Which appears similar to previous. Procalcitonin and lactate within normal range making sepsis less likely. CT scan was obtained of the abdomen/pelvis revealing extensive subcutaneous inflammation and fat stranding throughout the lower abdominal wall. No fluid collection. No gas. Cellulitis noted. Low suspicion for Emilee's at this time. Rather this appears to be more of a cellulitic process originating from a defect in the integument. It is unclear if this was an insect versus small friction wound from pants. I did order IV Zosyn for broad coverage. I will note the patient's blood pressure is low normal. I did discuss this with the patient. He is not dizzy. He is not lightheaded. The patient notes his normal blood pressure is in the low 90s systolic. From an infectious standpoint, procalcitonin and lactate were both normal. Low suspicion for sepsis. He is not tachycardic but will note this is likely an unreliable vital sign as he does have a pacemaker. He is not hypoxic. There is no tachypnea. There is no fever. Additionally, I did order the patient 500 mL of NSS over 1 hour as a one-time bolus as he does appear clinically dry and in the setting of this developing infection. I will note that caution was taken over the amount of fluid noting the patient's cardiac history. I did review his most recent echocardiogram dated 09/09/2024. This revealed a severely dilated left ventricle with severely reduced systolic function. Estimated EF 20%. Akinesis of the inferior lateral and inferior wall segments with otherwise global hypokinesis. Mild left ventricular hypertrophy with thinning of the inferior lateral wall. Mildly dilated right ventricle with mildly reduced systolic function. Severe left atrial dilation. Mild mitral regurgitation. Normal RV systolic pressure. Top normal aortic root size. I do believe that further evaluation and management inpatient setting is warranted. Case discussed with the hospitalist service. Please refer to further documentation regarding his stay. In the evaluation and treatment of this patient the following differential diagnoses were entertained: Emilee gangrene, cellulitis, abscess, necrotizing fasciitis, among others Impression & Plan Cellulitis of abdominal wall Discharge Plan Visit Data Chief Complaint: Bite Stated Complaint: INFECTED BUG BITE ED Provider: mAy Sena ED Midlevel Provider: Cheikh Calles Discharge Problem: Cellulitis of abdominal wall Patient Disposition: Admitted As Inpatient Condition: Good
[2025-02-15 15:26] LABS: Hematocrit (blood only) 45.4 % (42.0-52.0); Hemoglobin 14.9 g/dl (14.0-18.0); Immature Granulocytes # (auto) 0.02 K/uL (0.01-0.20); Immature Granulocytes % (auto) 0.2 %; Mean Corpuscular Hemoglobin 29.2 pg (25.0-34.0); Mean Corpuscular Volume 88.8 fL (80.0-100.0); Platelet Count 152 K/uL (130-400); RDW Standard Deviation 42.8 fL (36.4-46.3); Red Blood Count 5.11 M/uL (4.70-6.10); White Blood Count 8.67 K/ul (4.8-10.8)
[2025-02-15 15:45] LABS: Alanine Aminotransferase 6.0 U/L (7-52); Albumin Globulin Ratio 1.3 (0.9-2); Albumin Level 4.0 gm/dl (3.4-5.0); Alkaline Phosphatase 97.0 U/L (34-104); Anion Gap 6.0 (3-11); Bilirubin,Total 2.7 mg/dl (0.2-1.0); Blood Urea Nitrogen 23.0 mg/dl (6-23); Calcium 9.1 mg/dl (8.6-10.3); Carbon Dioxide 28.0 mmol/L (21-32); Chloride 103.0 mmol/L (98-107); Creatinine Clr Calc Pharmacy 49.5 ml/min; Globulin 3.0 gm/dl (2.5-4.0); Glucose 99.0 mg/dl (70-99(Fasting)); Potassium 4.2 mmol/L (3.5-5.1); Sodium 137.0 mmol/L (136-145); Total Protein 7.0 gm/dl (6.0-8.3)
[2025-02-15] MEDS: OPTIRAY 320 100ml IV ONE (16:20)
--- NOTE | 2025-02-15 16:34 | CT Scan Report ---
EXAMINATION: CT of the abdomen and pelvis performed after the administration of IV contrast TECHNIQUE: Helical CT images from the lung bases through the symphysis pubis were obtained with contrast. Coronal and sagittal reformatted images were generated at a workstation for further assessment. Dose reduction techniques were achieved by using automatic exposure control and/or adjustment of mA and/or kV according to patient size and/or use of iterative reconstruction technique. COMPARISON: None HISTORY: Bug bite FINDINGS: Lower chest: No consolidation. No pleural effusion or pneumothorax. Emphysema. Cardiomegaly. AICD leads in place. Liver: No suspicious liver lesions. Portal veins appear patent. Scattered small cysts. Gallbladder: Cholecystectomy Spleen: Normal size. Pancreas: No suspicious pancreatic lesions. The pancreatic duct is not dilated. Adrenal glands: No adrenal nodules. Kidneys: No hydronephrosis or obstructing renal stones. Bladder / Pelvic organs: Unremarkable. Bowel: No bowel obstruction. No abnormal bowel wall thickening. The appendix is unremarkable. Lymph nodes: No retroperitoneal, mesenteric, or pelvic lymphadenopathy. Peritoneum / Retroperitoneum: No free fluid or air within the abdomen. Vessels: No infrarenal aortic aneurysm. Bones and soft tissues: No suspicious lesion in the bones. Extensive subcutaneous inflammatory fat stranding throughout the lower abdominal wall. No fluid collection. No soft tissue gas. IMPRESSION: Extensive subcutaneous inflammatory fat stranding throughout the lower abdominal wall. No fluid collection. No soft tissue gas. Findings are suggestive of cellulitis. Electronically signed by Mando Srinivasan 02-15-2025 4:34 PM
[2025-02-15] MEDS: PIPERACILLIN/TAZOBACTAM 4.5 GM/100 ML BAG IV ONE (16:41)
[2025-02-15] MEDS: SODIUM CHLORIDE 0.9% 500 ML IV ONE (17:36)
--- NOTE | 2025-02-15 17:59 | History & Physical Report ---
Date of Service February 15, 2025 Assessment & Plan (1) HFrEF (heart failure with reduced ejection fraction): (2) ICD (implantable cardioverter-defibrillator), biventricular, in situ: (3) GERD (gastroesophageal reflux disease): (4) Anxiety: (5) Hyperlipidemia LDL goal <70: (6) Cellulitis: Plan 74 year old with pmh of HfrEf, ICD in pace, Ischemic cardiomyopathy, CAD, S/P cholecystectomy, subclinical Hypothyroidism,gout, anxiety, hyperlipidemia, PSVT, GERD presented to ED with spreading redness over in lower abdomen since 02/13/2025 morning. Clinical exam and imaging finding consistent with cellulitis spreading to genitalia, Pt needs admission for IV antibiotics. This is his second infection in life, first was umbilical port infection post cholecystectomy, needed revision surgery, Otherwise no h/o MRSA/recurrent infections in past. #Extensive Cellulitis of lower abdomen and genitalia - Rapid progression, involving genitalia, suspicious of spider bite. Clinically does not look septic, BP on softer side on baseline( MAP 65). Considering Pacemaker generated HR might mask reflex tachycardia as well, he does not meet other criteria for sepsis/ SIRS, Lactate WNL. CBC. CMP, Procal, CRP Unremarkable. CT : S/O cellulitis limited to superficial soft tissue, no facial involvement. Plan: Continue IV antibiotics; will opt for Zosyn and vancomycin given extensive involvement and possibility of Emilee's gangrene Cellulitis site marked. Will recheck AM Labs: CBC, CMP, CRP AM MRSA nares. Even though patient's clinical presentation does not look like MRSA, no h/o MRSA in past, sariuaser presumed Spider bite its reasonable to test MRSA. Follow blood CS, wound Swab CS, MRSA nares. Will involve general surgery if needed. Other Chronic: STABLE #Hyperlipidemia: Atorvastatin 20 continue #Heart failure: Bumetanide 0.5 mfg daily continue Continue Empaglifozin 10 mg #ICD in place/ Ischemic cardiomyopathy: New pacemaker jun 2024. Updated. EKG shows paced rhythm in 60s #AFIb: Metoprolol 25 mg daily, Apixaban 5 mg BID. #CAD: Stable, no new CP, PRN nitroglycerine. #GERD: Pantoprazole 40 mg continue, no active sx now Dispo: Med/surg Tele Code status: Full code DVT prophylaxis: Under Eliquis 5 mg BID. History of Present Illness Primary Care Provider: Linn Forbes MD 74 year old with pmh of HfrEf, ICD in pace, Ischemic cardiomyopathy, CAD, S/P cholecystectomy, subclinical Hypothyroidism,gout, anxiety, hyperlipidemia, PSVT, GERD presented to ED with spreading redness over in lower abdomen since ( 02/13/2025) morning. When he woke up morning, he noticed some burning and redness on his lower belly, did not notice bug bite itself but suspect it could be spider or any other bug. He and his noticed some spiders brownish, small but they do not think its recluse one. He does not report fever, CP, SOB, Dizziness, Confusion , Headaches, nausea, vomiting, belly pain. He also denies excruciating pain, it was just burning since the beginning, admits that the burning or discomfort is worse when lifting legs or any motion that increase pressure in belly, but no pain in baseline. Regular bowel movement, last was this morning before coming to hospital. Has not eaten anything from this morning, was feeling hungry. Obviously no loss of appetite, no fever, not feeling sick overall, peeing ok but Reports some burning sensation in urine since yesterday morning. Came to ED---- Vitals stable-- does not meet sepsis criteria. Lab work looks stable including white count, procal, CRP. Imaging shows extensive soft tissue involvement in lower abdomen. Admitting for IV antibiotics and follow up PMH/ Allergy history reviewed. Allergies Allergy/AdvReac Type Severity Reaction Status Date / Time heparin Allergy Severe CAUSES HIT Verified 02/04/25 11:31 silver AdvReac Intermediate TOPICAL - Verified 02/04/25 11:31 BURNING, PAIN Home Medications Medication Instructions Recorded Confirmed Type aspirin 81 mg tablet,delayed 81 mg PO DAILY #90 tabs 03/10/22 02/15/25 Rx release CPAP Machine #1 ea 02/23/24 02/04/25 Rx apixaban 5 mg tablet 5 mg PO BID #180 tabs 02/23/24 02/15/25 Rx atorvastatin 20 mg tablet 20 mg PO DAILY #90 tabs 02/23/24 02/15/25 Rx bumetanide 0.5 mg tablet 0.5 mg PO DAILY #90 tabs 02/23/24 02/15/25 Rx metoprolol succinate 25 mg 25 mg PO DAILY #90 tabs 02/23/24 02/15/25 Rx tablet,extended release 24 hr nitroglycerin 0.4 mg sublingual 0.4 mg sublingual DIRECTED PRN 04/15/24 02/15/25 Rx tablet Chest Pain #10 tabs pantoprazole 40 mg tablet,delayed 40 mg PO DAILY #90 tabs 06/25/24 02/15/25 Rx release potassium chloride 10 mEq 10 meq PO DAILY #90 caps 08/15/24 02/15/25 Rx capsule,extended release lorazepam 0.5 mg tablet 0.5 mg PO DAILY PRN anxiety #30 09/05/24 02/15/25 Rx tabs sertraline 50 mg tablet 50 mg PO DAILY #90 tabs 10/22/24 02/15/25 Rx gabapentin 600 mg tablet 600 mg PO HS 10/28/24 02/15/25 History sacubitril 24 mg-valsartan 26 mg 1 tab PO BID 10/28/24 02/15/25 History tablet sotalol 120 mg tablet 120 mg PO BID 10/28/24 02/15/25 History empagliflozin 10 mg tablet 10 mg PO DAILY #90 tabs 11/07/24 02/15/25 Rx (Jardiance) zolpidem 10 mg tablet 5 - 10 mg (0.5 - 1 x 10 mg) PO HS 02/12/25 02/15/25 Rx PRN insomnia #30 tabs Past Med/Surg History Problem List (Updated 02/15/25 @ 17:45 by Selene Farris MD) Cellulitis HFrEF (heart failure with reduced ejection fraction) s/p pacemaker/ICD ICD (implantable cardioverter-defibrillator), biventricular, in situ Ischemic cardiomyopathy CAD (coronary artery disease), [place] coronary artery Gastritis H/O umbilical hernia repair (08/22/24) Laparoscopic Cholecystectomy, Repair of Umbilical Hernia - Darryn Jeffries DO Hx laparoscopic cholecystectomy (08/22/24) Laparoscopic Cholecystectomy, Repair of Umbilical Hernia - Darryn Jeffries DO Cholelithiasis Postprandial epigastric pain Acute hypotension (Acute) Subclinical hypothyroidism Gout Phantom limb History of basal cell carcinoma Anticoagulant long-term use Anxiety Hyperlipidemia LDL goal <70 Paroxysmal ventricular tachycardia (Chronic 11/01/10) GERD (gastroesophageal reflux disease) Medical History (Updated 02/15/25 @ 17:45 by Selene Farris MD) AICD at end of battery life Hx of gout Hx of ventricular tachycardia (2010) HLD (hyperlipidemia) Anticoagulant long-term use Eliquis daily Hx of basal cell carcinoma Hypothyroidism Hx of myocardial infarction 05/2009 Hx of Lyme disease recently treated for reoccurrence of lymes, 10/2024 GERD (gastroesophageal reflux disease) Hx of gastritis Anxiety Pacemaker medtronic, placed 2012- w/ Dr Schwarz, replaced 08/2024 at [facility]; checked remotely Obstructive sleep apnea CPAP CKD (chronic kidney disease) stage 3, GFR 30-59 ml/min Chronic pain syndrome Hypertension Insomnia Surgical History History of cataract surgery right Hx of umbilical hernia repair done w/ Laparoscopic Cholecystectomy Hx of cardiac catheterization 2002 - > x 1 stent, C Hx of four vessel coronary artery bypass graft 2009> [facility] [place] History of cholecystectomy S/P below knee amputation L leg 2012; uses a prosthetic limb Family History Denies family history of Ovarian cancer Prostate cancer Breast cancer Colorectal cancer Social History Smoking Status: Former smoker Tobacco Type: Cigarettes Age Started Using Tobacco: 16; Age Quit Using Tobacco: 63; packs per day: 1; Second Hand Exposure: No; Do You Dip or Chew Tobacco: No; Hx Alcohol Use: No Preferred Language: Albanian Communication Ability: Effective Communication Ability Comment: pt [facility] Bottle Washer Required: No Beliefs That Will Affect Care: None marital status: Current Living Situation: Spouse current occupational status: retired Feels Safe at Home: Yes caffeine: Yes Dental Care, Regularly: Yes Seatbelt Use: always Sunscreen Use: Yes Assistive Devices: Cane, CPAP, Glasses, Hearing Aid - Left and Prosthesis Review of Systems Review of Systems: Per HPI Physical Exam Physical Exam: Constitutional: Well appearing, No acute distress, PILCCOD: Negative HEENT: Atraumatic, Normocephalic, No conjunctival injection CVS: S1 S2, with pacemaker clicks, no LE edema Respiratory: BL equal air entry with NVBS. No rhonchi, wheezes, or crackles. No increased work of breathing GI: Extensive around 10 X15 cm area erythema and mild swelling noted in lower abdomen midline from suprapubic region down to scrotum. Overall soft except from centre of inflammation with bite jaci on top, around 5X5 cm in the centre feels form, but not fluctuant like absecess. Normal Bowel sounds + MSK: No gross deformities noted Skin: As per GI exam Neuro: Alert, Oriented to TPP, No Focal deficit Psych: Mood and Affect congruent, Cooperative on exam Results & Data Results & Data Vital Signs (Past 12 Hours) Vital Signs Temp Pulse Pulse Resp BP BP Pulse Ox 02/15/25 17:03 64 16 94 02/15/25 17:00 93/57 L 02/15/25 17:00 93/57 L 02/15/25 17:00 93/57 L 02/15/25 16:57 61 17 95 02/15/25 16:54 60 16 95 02/15/25 16:45 94/61 L 02/15/25 16:45 94/61 L 02/15/25 16:45 94/61 L 02/15/25 16:45 94/61 L 02/15/25 16:45 62 17 94 02/15/25 16:45 63 02/15/25 15:32 60 20 93 02/15/25 15:06 82 16 109/70 93 02/15/25 14:07 36.8 C 78 18 100/61 94 O2 Del Method 02/15/25 17:03 02/15/25 17:00 02/15/25 17:00 02/15/25 17:00 02/15/25 16:57 02/15/25 16:54 02/15/25 16:45 02/15/25 16:45 02/15/25 16:45 02/15/25 16:45 02/15/25 16:45 02/15/25 16:45 02/15/25 15:32 02/15/25 15:06 Room Air 02/15/25 14:07 Supervising Physician Co-Signing Physician Notes I personally examined the patient and verified all carrillo points of history and exam, discussed case, and agree with decision making with Dr Farris Abdominal redness. Started about 2 days ago, but Abruptly worsened. Painful. vitals noted, in general he is awake and alert no distress. Breathing unlabored no accessory muscle use good effort. Abdomen is soft, he has a large area of erythema extending from just above his suprapubic region down to his pelvis/perineum. There is a small area of firmness that does not feel fluctuant, no obvious exudate. It is not ulcerated. Abdominal wall cellulitisconcerning given the extent of the area, given that abdominal wall is a large fascial plane over which cellulitis can spread rapidly, and quite concerning that it is spreading distally to his perineum. Cover with Vanco and Zosyn for now. Follow closely. Nothing feels like it needs to be drained, obviously will keep a close eye on the area of firmnessit could be a bite wound/portal of entry (with no ulceration I doubt spider bite/toxin mediated response), could have been an infected hair follicle as a portal of entry, right now does not feel like anything that would be a drainable abscess. Otherwise as above Resident Activity Tracking Resident Involvement: Resident Care Provided Care Provided: Adult Hospital Medicine
--- NOTE | 2025-02-15 19:26 | Billing Data ---
Date of Service February 15, 2025 Coding Level of Care Code 56651 INT INP/OBS CARE
--- NOTE | 2025-02-15 19:49 | Emergency Department Note ---
ED Visit Note I was consulted by the Advanced Practice Provider. I personally made/approved the management plan and take responsibility for the patient management. I performed a substantive portion of the visit. This includes the aspects of: -History/Physical -MDM .
[2025-02-15] MEDS ORDERED: NITROGLYCERIN SL 0.4 MG/TAB TAB SL PRN (21:21)
[2025-02-15] MEDS ORDERED: diphenhydrAMINE 50 MG/ML VIAL IV PRN (21:21)
[2025-02-15] MEDS ORDERED: LORazepam 0.5 MG TAB PO PRN (21:21)
[2025-02-15] MEDS ORDERED: VANCOMYCIN CONSULT ACTIVE SCH (21:21)
[2025-02-15] MEDS: SOTALOL HCL 80 MG TAB PO SCH (22:27)
[2025-02-15] MEDS: VANCOMYCIN HCL 1,750 MG in SODIUM CHLORIDE 0.9% 500 ML IV STA (22:27)
[2025-02-15] MEDS: VALSARTAN/SACUBITRIL 26/24MG TAB PO SCH (22:27)
[2025-02-15] MEDS: GABAPENTIN 600 MG TAB PO SCH (22:27)
[2025-02-15] MEDS: APIXABAN 5 MG TABLET PO SCH (22:27)
[2025-02-15] MEDS: ONDANSETRON INJ 2 MG/ML 2 ML VIAL IV PRN (22:51)
[2025-02-15] MEDS: ZOLPIDEM TARTRATE 5 MG TAB PO PRN (22:54)
[2025-02-15] MEDS: PIPERACILLIN/TAZOBACTAM 4.5 GM/100 ML BAG IV SCH (23:14)
[2025-02-15] MEDS: CALCIUM CARBONATE 500 MG CHEWABLE TAB PO PRN (23:36)
[2025-02-16 06:56] LABS: Hematocrit (blood only) 39.7 % (42.0-52.0); Hemoglobin 13.4 g/dl (14.0-18.0); Immature Granulocytes # (auto) 0.03 K/uL (0.01-0.20); Immature Granulocytes % (auto) 0.4 %; Mean Corpuscular Hemoglobin 30.4 pg (25.0-34.0); Mean Corpuscular Volume 90.0 fL (80.0-100.0); Platelet Count 128 K/uL (130-400); RDW Standard Deviation 43.7 fL (36.4-46.3); Red Blood Count 4.41 M/uL (4.70-6.10); White Blood Count 7.14 K/ul (4.8-10.8)
[2025-02-16 07:17] LABS: Alanine Aminotransferase 4.0 U/L (7-52); Albumin Globulin Ratio 1.6 (0.9-2); Albumin Level 3.6 gm/dl (3.4-5.0); Alkaline Phosphatase 73.0 U/L (34-104); Anion Gap 7.0 (3-11); Bilirubin,Total 2.3 mg/dl (0.2-1.0); Blood Urea Nitrogen 19.0 mg/dl (6-23); Calcium 8.3 mg/dl (8.6-10.3); Carbon Dioxide 27.0 mmol/L (21-32); Chloride 106.0 mmol/L (98-107); Creatinine Clr Calc Pharmacy 51.5 ml/min; Globulin 2.3 gm/dl (2.5-4.0); Glucose 90.0 mg/dl (70-99(Fasting)); Potassium 4.0 mmol/L (3.5-5.1); Sodium 140.0 mmol/L (136-145); Total Protein 5.9 gm/dl (6.0-8.3)
[2025-02-16 08:50] LABS: Cholesterol 81.0 mg/dl (0-200); HDL Cholesterol 29.0 mg/dl; Triglycerides 73.0 mg/dl (0-150)
[2025-02-16 09:05] LABS: Thyroid Stimulating Hormone 5.655 uIu/ml (0.300-4.500)
[2025-02-16] MEDS: IBUPROFEN 600 MG TAB PO SCH (09:12)
[2025-02-16] MEDS: EMPAGLIFLOZIN 10 MG TAB PO SCH (09:13)
[2025-02-16] MEDS: SERTRALINE HCL 50 MG TABLET PO SCH (09:13)
[2025-02-16] MEDS: BUMETANIDE 1 MG TAB PO SCH (09:13)
[2025-02-16] MEDS: ASPIRIN 81 MG ECTAB PO SCH (09:13)
[2025-02-16] MEDS: ATORVASTATIN 20 MG TAB PO SCH (09:13)
[2025-02-16] MEDS: METOPROLOL SUCC 25MG EXT REL TAB PO SCH (09:14)
[2025-02-16] MEDS: POTASSIUM CHLORIDE 10 MEQ TABCR PO SCH (09:19)
--- NOTE | 2025-02-16 10:28 | Hospitalist Progress Note ---
Date of Service February 16, 2025 Assessment & Plan (1) HFrEF (heart failure with reduced ejection fraction): (2) ICD (implantable cardioverter-defibrillator), biventricular, in situ: (3) GERD (gastroesophageal reflux disease): (4) Anxiety: (5) Hyperlipidemia LDL goal <70: (6) Cellulitis: Plan 74 year old with pmh of HfrEf, ICD in pace, Ischemic cardiomyopathy, CAD, S/P cholecystectomy, subclinical Hypothyroidism,gout, anxiety, hyperlipidemia, PSVT, GERD presented to ED with spreading redness over in lower abdomen since 02/13/2025 morning. Clinical exam and imaging finding consistent with cellulitis spreading to genitalia, Pt needs admission for IV antibiotics. This is his second infection in life, first was umbilical port infection post cholecystectomy, needed revision surgery, Otherwise no h/o MRSA/recurrent infections in past. #Extensive Cellulitis of lower abdomen and genitalia, likely MRSA. - Rapid improvement after Vancomycin/ Zosyn. - MRSA nares positive; positive likelihood of MRSA correlating with sx improvement after vanc with lab. Labs STABLE Plan - Trace Culture results today. - Continue IV Vanco for MRSA coverage, stop IV Zosyn and see how Pt remains. If remains stable-- do not need Gram neg coverage. - Schedule Ibuprofen 600 TID for anti inflammatory effect. - Change to oral antibiotics tomorrow. If remains stable with Vanco today-- Plan for Doxycycline for MRSA coverage for skin infection on DC. #Hypotension - BP on lower side, looks like his Baseline BP is lower side since past. - Hold Sotalol and Metoprolol until his infection clears, not to mask low BP secondary to Sepsis. #Rate controlled AFIb with pacemaker insitu for Vtac/ cardiomyopathy: - Metoprolol 25 mg daily, Sotalol 120 mg BID, Apixaban 5 mg BID . Both Sotalol and metoprolol held for time being. - Looks like recent cardiology visit dated on 02/04/2025 recommends only Sotalol, hence plan to DC metoprolol on Discharge Other Chronic: STABLE #Hyperlipidemia: Atorvastatin 20 continue #Heart failure: Bumetanide 0.5 mfg daily continue Continue Empaglifozin 10 mg #ICD in place/ Ischemic cardiomyopathy/VTach: New pacemaker jun 2024. Updated. EKG shows paced rhythm in 60s #CAD: Stable, no new CP, PRN nitroglycerine. #GERD: Pantoprazole 40 mg continue, no active sx now Dispo: Home once DC. Code status: Full code DVT prophylaxis: Under Eliquis 5 mg BID. Admission and Anticipated Discharge Date Admission Date: February 15, 2025 Supervising Physician Co-Signing Physician Notes I personally examined the patient and verified all carrillo points of history and exam, discussed case, and agree with decision making with Dr Farris Abdominal redness drastically improved. Scrotum and perineal redness completely resolved. Pain much better. In discussing plans of continuing IV antibiotics into tomorrow and then home on p.o. as long as he continues to improve, he definitely agrees with this plan, but notes that he does have an appointment at 3 PM to get a new leg that he would very much not want to miss. Vitals noted, in general he is awake and alert pleasant no distress. HEENT normocephalic atraumatic mucous membranes moist. Skin shows drastically improved abdominal wall erythema. The small area of firmness at the most proximal area of the outline is still there, it is slightly scabbed but not ulcerated, it is a little bit firm but not really all that fluctuant (does not at all feel like a drainable abscess) and overall the erythema is dramatically improved, no perineal/scrotal erythema. Abdominal wall cellulitis Initially wasconcerning given the extent of the area, given that abdominal wall is a large fascial plane over which cellulitis can spread rapidly, and quite concerning that it is spreading distally to his perineum. because of this, initially started with Zosyn and Vanco due to "little margin of air". Now he is improving dramatically. Given that most skin and soft tissue infections will be gram-positive, and with his MRSA nares positive we have to account for MRSA, we will stop Zosyn todaycontinue vancomycin, and with ongoing improvement, would anticipate home tomorrow morning on p.o. [facility]xycycl[facility]. [facility], but with ongoing improvement anticipate home in the a.m. on p.o. doxycycline. Of note he has an appointment to get a new leg at 3 PM. Otherwise as above. Subjective Pt feeling ok this morning. He slept after 2 am as he was shifted to this room late in the evening, Around 10 pm, took time to readjust. Otherwise no new sx, feels the redness has decreased quite bit. No fever, eating ok, peeing ok, pooping ok. Mentioned that he has appointment to get new arthrosis for his left leg which is amputated years ago during when he had open heart surgery at [facility] and sounds like he has electric burn during surgery, He has this apt tomorrow afternoon, hence was hoping to leave early tomorrow, if possible Review of Systems Review of Systems: Per HPI Physical Exam Physical Exam: Constitutional: Well appearing, No acute distress, PILCCOD: Negative HEENT: Atraumatic, Normocephalic, No conjunctival injection CVS: S1 S2, with pacemaker clicks, no LE edema Respiratory: No increased work of breathing GI: Drastic improvement in cellulitis lesion compares to yesterday, lesion has shrinked from outer border. Scrotal and penile soft tissue involvement looks Improved as well. Normal Bowel sounds + MSK: Amputated left leg from below knee. Stump healthy. Skin: As per GI exam Neuro: Alert, Oriented to TPP, No Focal deficit Psych: Mood and Affect congruent, Cooperative on exam Results & Data Results & Data Vital Signs (Past 12 Hours) Vital Signs Temp Pulse Pulse Resp BP BP Pulse Ox 02/16/25 10:17 37.0 C 60 16 85/46 L 93 02/16/25 09:06 86/50 L 02/16/25 08:35 80/53 L 02/16/25 07:38 37.0 C 61 16 86/52 L 93 02/16/25 02:40 36.8 C 65 18 94/56 L 92 02/15/25 22:29 60 O2 Del Method 02/16/25 10:17 Room Air 02/16/25 09:06 02/16/25 08:35 02/16/25 07:38 Room Air 02/16/25 02:40 Room Air 02/15/25 22:29 Resident Activity Tracking Resident Involvement: Resident Care Provided Care Provided: Adult Hospital Medicine
--- NOTE | 2025-02-16 11:40 | Pharmacy Report ---
Pharmacy PK ABX Note - Date of Service February 16, 2025 - Assessment and Plan Assessment * 74 year old M receiving pip/tazo and vancomycin for treatment of cellulitis. * Pertinent microbiologic data includes: Positive MRSA Nasal Swab, blood culture x2 pending * SCr elevated but stable and at/near baseline Plan Vancomycin * Loading dose: 1750 mg IV x 1 * Maintenance dose: 1250 mg IV every 24 hours * Regimen is predicted to achieve target AUC/TEA of 400-600 mg/L.hr * Random level ordered for: 1013 AM Pharmacy will continue to follow and will adjust dose/frequency as necessary. Thank you. Pharmacy has transitioned to AUC monitoring for vancomycin. AUC/TEA is the preferred PK/PD target and is associated with decreased risk of nephrotoxicity compared to traditional trough targets.
[2025-02-16] MEDS: VANCOMYCIN HCL 1,250 MG in SODIUM CHLORIDE 0.9% 250 ML IV SCH (16:11)
--- NOTE | 2025-02-16 17:37 | Billing Data ---
Date of Service February 16, 2025 Coding Level of Care Code 97068 SUB INP/OBS CARE MIN
[2025-02-17 05:50] LABS: Creatinine Clr Calc Pharmacy 42.8 ml/min
[2025-02-17 06:58] VITALS: RESP 18; TEMP 97.9; O2SAT 95
[2025-02-17 10:19] VITALS: BP 113/69; PULSE 75
--- NOTE | 2025-02-17 10:29 | Discharge Summary ---
Discharge Summary Date of Service February 17, 2025 Principal Dx & Hospital Course #1 = Principal Diagnosis (1) HFrEF (heart failure with reduced ejection fraction): (2) ICD (implantable cardioverter-defibrillator), biventricular, in situ: (3) GERD (gastroesophageal reflux disease): (4) Anxiety: (5) Hyperlipidemia LDL goal <70: (6) Cellulitis: Plan 74 year old with pmh of HfrEf, ICD in pace, Ischemic cardiomyopathy, CAD, S/P cholecystectomy, subclinical Hypothyroidism,gout, anxiety, hyperlipidemia, PSVT, GERD presented to ED with spreading redness over in lower abdomen since 02/13/2025 morning. Clinical exam and imaging finding consistent with cellulitis spreading to genitalia, Pt needs admission for IV antibiotics. This is his second infection in life, first was umbilical port infection post cholecystectomy, needed revision surgery, Otherwise no h/o MRSA/recurrent infections in past. #Extensive Cellulitis of lower abdomen and genitalia, likely MRSA. - Rapid improvement after Vancomycin/ Zosyn. - MRSA nares positive; positive likelihood of MRSA correlating with sx improvement after vanc with lab. - Schedule Ibuprofen 600 TID for anti inflammatory effect. as needed at discharge - Transition to oral antibiotics, plan for Doxycycline for MRSA coverage for skin infection for 7 additional days. #Hypotension - BP on lower side, looks like his Baseline BP is lower side since past. - Hold Sotalol and Metoprolol until his infection clears, not to mask low BP secondary to Sepsis. - resolved resolved at the time of discharge, orthostatic vital signs negative. He typically runs on the low side will have him resume his home medications with close follow-up in the outpatient setting #Rate controlled AFIb with pacemaker insitu for Vtac/ cardiomyopathy: - Metoprolol 25 mg daily, Sotalol 120 mg BID, Apixaban 5 mg BID . Both Sotalol and metoprolol held for time being. - Looks like recent cardiology visit dated on 02/04/2025 recommends only Sotalol, hence plan to DC metoprolol on Discharge Other Chronic: STABLE #Hyperlipidemia: Atorvastatin 20 continue #Heart failure: Bumetanide 0.5 mfg daily continue Continue Empaglifozin 10 mg #ICD in place/ Ischemic cardiomyopathy/VTach: New pacemaker jun 2024. Updated. EKG shows paced rhythm in 60s #CAD: Stable, no new CP, PRN nitroglycerine. #GERD: Pantoprazole 40 mg continue, no active sx now Dispo: Home once DC. Code status: Full code DVT prophylaxis: Under Eliquis 5 mg BID. Admission HPI Per Admitting Provider 74 year old with pmh of HfrEf, ICD in pace, Ischemic cardiomyopathy, CAD, S/P cholecystectomy, subclinical Hypothyroidism,gout, anxiety, hyperlipidemia, PSVT, GERD presented to ED with spreading redness over in lower abdomen since ( 02/13/2025) morning. When he woke up morning, he noticed some burning and redness on his lower belly, did not notice bug bite itself but suspect it could be spider or any other bug. He and his noticed some spiders brownish, small but they do not think its recluse one. He does not report fever, CP, SOB, Dizziness, Confusion , Headaches, nausea, vomiting, belly pain. He also denies excruciating pain, it was just burning since the beginning, admits that the burning or discomfort is worse when lifting legs or any motion that increase pressure in belly, but no pain in baseline. Regular bowel movement, last was this morning before coming to hospital. Has not eaten anything from this morning, was feeling hungry. Obviously no loss of appetite, no fever, not feeling sick overall, peeing ok but Reports some burning sensation in urine since yesterday morning. Came to ED---- Vitals stable-- does not meet sepsis criteria. Lab work looks stable including white count, procal, CRP. Imaging shows extensive soft tissue involvement in lower abdomen. Admitting for IV antibiotics and follow up PMH/ Allergy history reviewed. Discharge Exam Constitutional WD/WN, vitals as above Eyes PERRL, conjunctivae normal, anicteric sclerae ENMT mmm Respiratory CTAB Cardiovascular RRR no MRG Skin redness in the lower abdomen while inside the skin marking pen line. There is still some induration but no tenderness along the central comedo site approximately 3 to 4 cm in diameter Discharge Plan Discharge Items Patient Disposition: Home - Self-Care Reason For Visit: CELLULITIS Discharge Diagnosis: MRSA Cellulitis improving Condition on Discharge: Good Health Concerns: Start the doxycycline today and take twice daily for the full 7 days Return to the ED with any fevers, chilles, increase in redness or pain or genearlized flu-like symptoms Follow-up with your PCP within 7 days for recheck Activity: Resume your previous activity Non-emergency contact: Primary Care Provider Call non-emergency contact if: your symptoms worsen Follow-up/Referrals: Linn Forbes MD [Primary Care Provider] - Diet: Heart Healthy Addtl Attending Provider Instructions: Abdominal wall cellulitis (abdominal wall skin infection) - the small firm area at the top of where the infection is appears to be the "portal of entry"it could have been some sort of bite, or as simple as an infected hair follicle. Fortunately, given that it did not become a big ugly ulceration, it is extremely unlikely to have been a spider bite (brown recluse spider bites tend to lead to "tissue necrosis"which usually appears as an enlarging ulceration at the site of the bite) - most likely this was caused by staphstaph is certainly one of the most common causes of the skin infection. Given that the MRSA nasal swab was positive, while that does not indicate this infection was definitely caused by MRSA, it definitely makes it possiblethe antibiotics we have been using have been dire cted to clear MRSA as well. - In the hospital, you are on vancomycin IV, going home, we will treat with doxycycline orally for another 7 days (although the true duration should be better determined based on how well you are getting better at your follow-up visits) - doxycycline is usually really well-tolerated, for most people it does not cause much of any side effects, but the 2 main side effects that it causes (quite rarely) are fairly easy to avoid and are as follows: Sun sensitivityit is one of those on antibiotics that can make you way more prone to a sunburn. Given time of year, as long as you are not traveling anywhere, it really will not be a big deal. If you are going somewhere south, I would definitely be aggressive with sunblock/sun protection/etc. (Most of the time the sun sensitivity side effect wears off a few days after you are done with the antibiotic) esophageal ulcerswhile this is also quite rare, it is an antibiotic that if it gets "stuck on the way down" it can cause a pretty painful (fortunately not dangerous, but unfortunately quite painful) ulcer in your esophagus. With that in mind, generally I recommend that people take it with a full glass of water, if it feels at all like it got stuck on the way down, drink a second glass of water and eat something to "bulldoze it down"and also definitely do not take your evening dose and immediately lay down to go to bedbe upright for at least 30 minutes afterwards. Follow-up with your PCP by the end of the week for recheckwe want a make sure you are continuing to get better, and also the pace at which you are continuing to get better we will really dictate the full duration of the antibiotic course. Pending Studies at Discharge: No Stand-Alone Forms: [facility], Smoking Cessation Medications and DC Order Prescriptions: New doxycycline hyclate 100 mg capsule 100 mg PO BID 7 Days Qty: 14 0RF doxycycline hyclate 100 mg Capsule 100 mg PO BID 7 Days Qty: 14 0RF Continued sertraline 50 mg tablet 50 mg PO DAILY Qty: 90 3RF Patient Comments: qam Jardiance 10 mg tablet 10 mg PO DAILY Qty: 90 3RF Hold Instructions: Resume on 08/28/24. Patient Comments: qam zolpidem 10 mg tablet 5 - 10 mg PO HS PRN (Reason: insomnia) Qty: 30 0RF aspirin 81 mg tablet,delayed release (DR/EC) 81 mg PO DAILY Qty: 90 3RF Hold Instructions: RESUME ON 09/01 Patient Comments: 02/15- otc unable to verify (DME) CPAP Machine Misc See Rx Instructions .Route Qty: 1 0RF Rx Instructions: CAP 5cmH20 with mask fitting (mask of pt choice) humidification heated tubing and chin strap. Lifetime supplies. bumetanide 0.5 mg tablet 0.5 mg PO DAILY Qty: 90 3RF Hold Instructions: Resume on 08/28/24. Patient Comments: qam apixaban 5 mg tablet 5 mg PO BID Qty: 180 3RF Hold Instructions: 10/05/24,10/06/24,10/07/24 ERCP prep atorvastatin 20 mg tablet 20 mg PO DAILY Qty: 90 3RF Patient Comments: qam metoprolol succinate 25 mg tablet extended release 24 hr 25 mg PO DAILY Qty: 90 3RF Patient Comments: qam sotalol 120 mg tablet 120 mg PO BID sacubitril-valsartan 24-26 mg tablet 1 tab PO BID Hold Instructions: Resume on 08/29/24. Patient Comments: takes 1/2 tab bid gabapentin 600 mg tablet 600 mg PO HS pantoprazole 40 mg tablet,delayed release (DR/EC) 40 mg PO DAILY Qty: 90 3RF Patient Comments: qam lorazepam 0.5 mg tablet 0.5 mg PO DAILY PRN (Reason: anxiety) Qty: 30 1RF Patient Comments: 02/15- last filled 09/05 30 day supply nitroglycerin 0.4 mg tablet, sublingual 0.4 mg sublingual DIRECTED PRN (Reason: Chest Pain) Qty: 10 0RF potassium chloride 10 mEq capsule, extended release 10 meq PO DAILY Qty: 90 3RF Discharge Orders: Discharge Order (Routine); Ordered 02/17/25 Ordered By: Antoni Mata/Other Patient Handouts: Cellulitis Dc Admission Data Admit Date/Time: 02/15/25 17:28 Attending Provider: Antoni Mejia Admit Provider: Selene Farris Primary Care Provider: Linn Forbes Other Providers: Naveed Starr Hospital Stay Data Consultations 02/15/25 16:42 ED Decision to Admit Stat Diagnostic Imagining Performed 02/15/25 14:32 CT abd pelvis IV con only Stat Pending Results Patient Have Any Pending Studies at Discharge: No Discharge Instructions Given to Patient (Per Discharging Provider) Abdominal wall cellulitis (abdominal wall skin infection) - the small firm area at the top of where the infection is appears to be the "portal of entry"it could have been some sort of bite, or as simple as an infected hair follicle. Fortunately, given that it did not become a big ugly ulceration, it is extremely unlikely to have been a spider bite (brown recluse spider bites tend to lead to "tissue necrosis"which usually appears as an enlarging ulceration at the site of the bite) - most likely this was caused by staphstaph is certainly one of the most common causes of the skin infection. Given that the MRSA nasal swab was positive, while that does not indicate this infection was definitely caused by MRSA, it definitely makes it possiblethe antibiotics we have been using have been directed to clear MRSA as well. - In the hospital, you are on vancomycin IV, going home, we will treat with doxycycline orally for another 7 days (although the true duration should be better determined based on how well you are getting better at your follow-up visits) - doxycycline is usually really well-tolerated, for most people it does not cause much of any side effects, but the 2 main side effects that it causes (quite rarely) are fairly easy to avoid and are as follows: Sun sensitivityit is one of those on antibiotics that can make you way more prone to a sunburn. Given time of year, as long as you are n ot traveling anywhere, it really will not be a big deal. If you are going somewhere south, I would definitely be aggressive with sunblock/sun protection/etc. (Most of the time the sun sensitivity side effect wears off a few days after you are done with the antibiotic) esophageal ulcerswhile this is also quite rare, it is an antibiotic that if it gets "stuck on the way down" it can cause a pretty painful (fortunately not dangerous, but unfortunately quite painful) ulcer in your esophagus. With that in mind, generally I recommend that people take it with a full glass of water, if it feels at all like it got stuck on the way down, drink a second glass of water and eat something to "bulldoze it down"and also definitely do not take your evening dose and immediately lay down to go to bedbe upright for at least 30 minutes afterwards. Follow-up with your PCP by the end of the week for recheckwe want a make sure you are continuing to get better, and also the pace at which you are continuing to get better we will really dictate the full duration of the antibiotic course. Total Time Total Time Spent Total Time Spent (In Minutes): 35 minutes spent reviewing prior notes, arranging for discharge medications and discussing follow-up with the patient Coding Level of Care Code 09802 INP/OBS DISCH >30 MIN Diagnoses HFrEF (heart failure with reduced ejection fraction) I50.20 ICD (implantable cardioverter-defibrillator), biventricular, in situ Z95.810 GERD (gastroesophageal reflux disease) K21.9 Anxiety F41.9 Hyperlipidemia LDL goal <70 E78.5 Cellulitis L03.90
[2025-02-17] MEDS: DOXYCYCLINE HYCLATE 100 MG CAP PO SCH (10:43)
== END 2025-02-17 11:25 | disposition home or self-care (01) | DRG 603 ==
LOC: ED 14:05 → EDINP 17:28 → SUATTDRO 17:28 → 2W 21:21